=== PATIENT | female | born 1970 | race American Indian/Alaskan Native ===

== ENCOUNTER 2017-06-03 18:06 | Inpatient (IN) | payer BC ==
[2017-06-03] MEDS ORDERED: Sodium Chloride 0.9% 1,000 ML IV STA (19:05)
--- NOTE | 2017-06-03 19:28 | ED PDOC ---
Arrival/HPI - General Chief Complaint: Abdominal Pain Time Seen by Provider: 06/03/17 18:39 Historian: Patient - History of Present Illness Narrative History of Present Illness (Text): 06/03/17 19:26 47-year-old morbidly obese female presents today with left sided abdominal pain. Patient states for the past couple of weeks she's had worsening sharp stabbing pains in the left side of the abdomen. Patient states the pain starts epigastric and radiates to the left upper quadrant and into the left lower quadrant and suprapubic region. She is complaining of nausea with vomiting. She is complaining of intermittent chest pain. Denies dizziness or weakness. States she's been taking Motrin for pain at home without improvement. Patient denies urinary symptoms. Denies diarrhea or constipation. No other complaints Time/Duration: > week (2) Symptom Onset: Gradual Symptom Course: Worsening Quality: Aching, Stabbing, Cramping Severity Level: 6 Past Medical History - Provider Review Nursing Documentation Reviewed: Yes - Travel History Have you recently traveled outside [place] w/in the past 3 mons?: No - Tetanus Immunization Tetanus Immunization: Unknown - Cardiac Hx Cardiac Disorders: No - Pulmonary Hx Respiratory Disorders: No - Neurological Hx Neurological Disorder: No - HEENT Hx HEENT Disorder: No - Renal Hx Renal Disorder: No - Endocrine/Metabolic Hx Endocrine Disorders: No - Hematological/Oncological Hx Blood Disorders: No - Integumentary Hx Dermatological Disorder: No - Musculoskeletal/Rheumatological Hx Musculoskeletal Disorders: Yes Other/Comment: scica left side - Gastrointestinal Hx Gastrointestinal Disorders: No - Genitourinary/Gynecological Hx Genitourinary Disorders: No - Psychiatric Hx Psychophysiologic Disorder: No Hx Substance Use: No Family/Social History - Physician Review Nursing Documentation Reviewed: Yes Family/Social History: Unknown Family HX Smoking Status: Never Smoked Hx Alcohol Use: Yes Frequency of alcohol use: Socially Hx Substance Use: No Allergies/Home Meds Allergies/Adverse Reactions: Allergies No Known Allergies Allergy (Verified 06/03/17 18:28) Home Medications: Home Meds Medication Instructions Recorded Confirmed No Known Home Med 06/03/17 06/03/17 Review of Systems - Review of Systems Constitutional: absent: Fatigue, Fevers Respiratory: absent: SOB, Cough Cardiovascular: Chest Pain. absent: Palpitations Gastrointestinal: Abdominal Pain, Nausea, Vomiting. absent: Constipation, Diarrhea Genitourinary Female: absent: Dysuria, Frequency, Urine Output Changes Musculoskeletal: Back Pain. absent: Arthralgias, Neck Pain Skin: absent: Rash, Pruritis Neurological: absent: Headache, Dizziness Psychiatric: absent: Anxiety, Depression, Suicidal Ideation Physical Exam Vital Signs Reviewed: Yes Vital Signs Temp Pulse Resp BP Pulse Ox 06/03/17 23:48 74 16 126/76 99 06/03/17 23:47 98.1 F 71 18 126/76 100 06/03/17 22:03 98.0 F 74 18 146/70 99 06/03/17 18:17 98.3 F 89 18 143/87 98 Temperature: Afebrile Blood Pressure: Normal Pulse: Regular Respiratory Rate: Normal Appearance: Positive for: Well-Appearing, Non-Toxic, Comfortable Pain Distress: None Mental Status: Positive for: Alert and Oriented X 3 - Systems Exam Head: Present: Atraumatic Mouth: Present: Moist Mucous Membranes Neck: Present: Normal Range of Motion Respiratory/Chest: Present: Clear to Auscultation, Good Air Exchange. No: Respiratory Distress, Accessory Muscle Use Cardiovascular: Present: Regular Rate and Rhythm, Normal S1, S2. No: Murmurs Abdomen: Present: Tenderness (+ epigastric, luq and llq abd tenderness), Normal Bowel Sounds, Guarding (voluntary). No: Distention, Peritoneal Signs, McBurney' s Point Tender Back: Present: Normal Inspection. No: CVA Tenderness, Midline Tenderness, Paraspinal Tenderness Upper Extremity: Present: Normal Inspection Lower Extremity: Present: Normal Inspection Neurological: Present: GCS=15, Speech Normal Skin: Present: Warm, Dry, Normal Color. No: Rashes Psychiatric: Present: Alert, Oriented x 3 Medical Decision Making ED Course and Treatment: 06/03/17 19:29 Patient is nontoxic well appearing with stable vital signs presenting with [ severe] abdominal pain CBC WNL CMP WNL Lipase WNL trop: wnl ekg;NORMAL SINUS RHYTHM AT 73 B/P NORMAL AXIS AND NO st ELEVATIONS Urinalysis; CAT scan:FINDINGS: Lower thorax: No acute findings. ABDOMEN: Liver: There are some vague ill-defined low-attenuation areas in the anterolateral liver and the posterior right hepatic lobe measuring approximately 9 x 14 mm and 22 x 22 mm respectively. Gallbladder and bile ducts: Unremarkable. No calcified stones. No ductal dilation. Pancreas: Unremarkable. No mass. No ductal dilation. Spleen: Unremarkable. No splenomegaly. Adrenals: Unremarkable. No mass. Kidneys and ureters: Unremarkable. No solid mass. No hydronephrosis. Stomach and bowel: Colonic diverticulosis. There is pericolonic induration in the descending colon with prominent pericolonic induration extending medially and is confluent with some adjacent small bowel segments. The area of confluence measures approximately 2.1 cm. There are some small foci of gas within the induration in a 1 cm area which likely reflect a small area of contained perforation and early pericolonic abscess. There is surrounding stranding in a stellate configuration into the surrounding mesenteric fat. Although the gas collections are more adjacent to the small bowel, these probably originate from the colon. The small bowel is probably secondarily involved. Colonic wall thickening persists and the proximal sigmoid. No obstruction. Appendix: A normal appendix is seen. PELVIS: Bladder: The urinary bladder is decompressed but appears grossly normal. Reproductive: The uterus is enlarged measuring 8.2 cm in its AP dimension and is inhomogeneous with suggestion of a large fibroid anteriorly and to the left measuring approximately 6.7 cm. ABDOMEN and PELVIS: Intraperitoneal space: Unremarkable. No free air. No significant fluid collection. Bones/joints: No acute fracture. No dislocation. Soft tissues: Unremarkable. Vasculature: Unremarkable. No abdominal aortic aneurysm. Lymph nodes: Unremarkable. No enlarged lymph nodes. IMPRESSION: 1. Colonic diverticulosis with evidence of colonic diverticulitis involving the distal descending colon and proximal sigmoid. There is a prominent focal inflammatory confluence extending medially from the distal descending colon with small foci of gas within consistent with a small area of contained perforation or early abscess which is noted to be adjacent to at least one small bowel segment. The area of confluence measures approximately 2.1 cm in diameter although the air is localized to an area approximately 1 cm in diameter. 2. Vague ill-defined low-attenuation areas of the liver which are nonspecific and measure up to 2.2 cm. 3. Enlarged uterus with probable large fibroid anterolaterally to the left. Patient reassessment: PATIENT RESTING COMFORTABLY VITAL STABLE Case was discussed in depth with rn surgical dr. melgar who saw patient at [facility]. case discussed with dr. long; accepts admission. consult dr. brandt. paged dr. brandt; he did not return my call. spoke with rn surgical who states she spoke with dr. brandt regarding this case. blood cultures and urinecultures ordered. zosyn and flagyl ordered IV. Discussed all results with patient in depth Impression: diverticulitis with perforation, abscess, admit to med/surg. surgical consult. - Lab Interpretations Lab Results: 06/03/17 19:45 06/03/17 19:45 Lab Results 06/03/17 19:45: WBC 8.4, RBC 4.37, Hgb 13.4, Hct 39.2, MCV 89.7, MCH 30.7, MCHC 34.2, RDW 11.8, Plt Count 327, MPV 10.5, Gran % 67.2, Lymph % (Auto) 22.2, [place] % (Auto) 9.3 H, Eos % (Auto) 1.1 L, Baso % (Auto) 0.2, Gran # 5.61, Lymph # 1.9 , [place] # 0.8 H, Eos # 0.1, Baso # 0.02 06/03/17 19:45: Sodium 140, Potassium 4.4, Chloride 101, Carbon Dioxide 28, Anion Gap 15, BUN 8, Creatinine 0.7, Est GFR ( Amer) > 60, Est GFR (Non- Af Amer) > 60, Random Glucose 112 H, Calcium 9.4, Total Bilirubin 0.5, AST 29, ALT 30, Alkaline Phosphatase 89, Lactate Dehydrogenase 546, Total Creatine Kinase 40, Troponin I < 0.01, Total Protein 7.8, Albumin 4.0, Globulin 3.8, Albumin/Globulin Ratio 1.1, Lipase 87 06/03/17 19:45: Urine Color Yellow, Urine Appearance Clear, Urine pH 5.5, Ur Specific [place] >= 1.030, Urine Protein Trace H, Urine Glucose (UA) Negative, Urine Ketones Trace H, Urine Blood Negative, Urine Nitrate Negative, Urine Bilirubin Negative, Urine Urobilinogen 0.2, Ur Leukocyte Esterase Trace H, Urine RBC 0 - 2, Urine WBC 2 - 5, Ur Epithelial Cells 6 - 8, Urine Bacteria Few - RAD Interpretation Radiology Orders: 06/03/17 19:12 ABD & PELVIS IV CONTRAST ONLY [CT] Stat 06/03/17 19:27 CHEST PORTABLE [RAD] Stat - Medication Orders Current Medication Orders: Acetaminophen (Tylenol 325mg Tab) 650 mg PO Q6H PRN PRN Reason: Pain, Mild (1-3) Sodium Chloride (Sodium Chloride 0.9%) 1,000 mls @ 150 mls/hr IV .Q6H40M JEANCARLOS Last Admin: 06/03/17 23:24 Dose: 150 mls/hr Metronidazole (Flagyl) 500 mg in 100 mls @ 100 mls/hr IVPB Q8 JEANCARLOS PRN Reason: Protocol Ciprofloxacin (Cipro 400mg/200ml Dsw) 400 mg in 200 mls @ 133.3 mls/hr IVPB Q12 JEANCARLOS PRN Reason: Protocol Stop: 06/04/17 23:31 Morphine Sulfate (Morphine) 4 mg IVP Q6H PRN PRN Reason: Pain, severe (8-10) Pantoprazole Sodium (Protonix Inj) 40 mg IVP DAILY JEANCARLOS Tramadol HCl (Ultram) 50 mg PO Q6H PRN PRN Reason: Pain, moderate (4-7) Discontinued Medications Sodium Chloride (Sodium Chloride 0.9%) 1,000 mls @ 999 mls/hr IV .Q1H1M STA Stop: 06/03/17 20:05 Last Admin: 06/03/17 19:32 Dose: 999 mls/hr Metronidazole (Flagyl) 500 mg in 100 mls @ 100 mls/hr IVPB STAT STA PRN Reason: Protocol Stop: 06/03/17 23:22 Last Admin: 06/04/17 00:33 Dose: 100 mls/hr Piperacillin Sod/Tazobactam Sod (Zosyn 3.375 In Ns 100ml) 100 mls @ 200 mls/hr IVPB STAT STA PRN Reason: Protocol Stop: 06/03/17 22:52 Last Admin: 06/03/17 23:24 Dose: 200 mls/hr Sodium Chloride (Sodium Chloride 0.9%) 1,000 mls @ 100 mls/hr IV .Q10H JEANCARLOS Ciprofloxacin (Cipro 400mg/200ml Dsw) 400 mg in 200 mls @ 133.3 mls/hr IVPB Q12 JEANCARLOS PRN Reason: Protocol Stop: 06/04/17 00:46 Iohexol (Omnipaque 300 100 Ml) Confirm Administered Dose 100 ml IJ .STK-MED ONE Stop: 06/03/17 20:14 Ketorolac Tromethamine (Toradol) 30 mg IVP STAT STA Stop: 06/03/17 19:13 Last Admin: 06/03/17 19:29 Dose: 30 mg Disposition/Present on Arrival - Present on Arrival Any Indicators Present on Arrival: No History of DVT/PE: No History of Uncontrolled Diabetes: No Urinary Catheter: No History of Decub. Ulcer: No History Surgical Site Infection Following: None - Disposition Have Diagnosis and Disposition been Completed?: Yes Diagnosis: Diverticulitis, Intra-abdominal abscess Disposition: HOSPITALIZED Disposition Time: 22:35 Patient Plan: Admission Patient Problems: Current Active Problems Problem Status Onset Diverticulitis Acute Intra-abdominal abscess Acute Condition: FAIR
[2017-06-03 20:03] LABS: BASO # 0.02 K/mm3 (0.0-2.0); BASO % 0.2 % (0.0-3.0); EOS # 0.1 (0.0-0.7); EOS % 1.1 % (1.5-5.0); GRAN # 5.61 (1.4-6.5); GRAN % 67.2 % (50.0-68.0); HEMATOCRIT 39.2 % (36.0-48.0); LYMPH # 1.9 (1.2-3.4); LYMPH % 22.2 % (22.0-35.0); MEAN CELL VOLUME 89.7 fl (80.0-105.0); MEAN CORPUSCULAR HEMOGLOBIN 30.7 pg (25.0-35.0); MEAN CORPUSCULAR HGB CONC 34.2 g/dl (31.0-37.0); MEAN PLATELET VOLUME 10.5 fl (7.0-11.0); MONO # 0.8 (0.1-0.6); MONO % 9.3 % (1.0-6.0); RED CELL DISTRIBUTION WIDTH 11.8 % (11.5-14.5); WHITE BLOOD COUNT 8.4 10^3/ul (4.5-11.0)
[2017-06-03 20:04] LABS: PH,URINE 5.5 (4.7-8.0); URINE BILIRUBIN NEGATIVE (NEGATIVE); URINE BLOOD NEGATIVE (NEGATIVE); URINE GLUCOSE (UA) NEGATIVE (NEGATIVE); URINE KETONE TRACE mg/dL (NEGATIVE); URINE LEUKOCYTE ESTERASE TRACE Leu/uL (NEGATIVE); URINE PROTEIN TRACE mg/dL (<30 mg/dL); URINE UROBILINOGEN 0.2 E.U./dL (<1 E.U./dL)
[2017-06-03 20:07] LABS: ALB/GLOB RATIO 1.1 (1.1-1.8); ALKALINE PHOSPHATASE 89 U/L (38-133); ALT/SGPT 30 U/L (7-56); AST/SGOT 29 U/L (15-39); BILIRUBIN,TOTAL 0.5 mg/dL (0.2-1.3); BLOOD UREA NITROGEN 8 mg/dL (7-21); CALCIUM 9.4 mg/dL (8.4-10.5); CARBON DIOXIDE 28 mmol/L (21-33); CHLORIDE 101 mmol/L (98-107); GFR AFRICAN-AMERICAN > 60; GLUCOSE,RANDOM 112 mg/dL (70-110); LIPASE 87 U/L (23-300); POTASSIUM 4.4 mmol/L (3.6-5.0); SODIUM 140 mmol/L (132-148); TOTAL PROTEIN 7.8 g/dL (5.8-8.3); URINE APPEARANCE CLEAR (CLEAR); URINE COLOR YELLOW (YELLOW)
[2017-06-03] MEDS ORDERED: Iohexol 300 100 ML IJ ONE (20:13)
[2017-06-03 20:17] LABS: URINE BACTERIA FEW (NEG); URINE RBC 0 - 2 /hpf (0-2)
[2017-06-03 20:19] LABS: TROPONIN I < 0.01 ng/mL
[2017-06-03] MEDS ORDERED: metroNIDAZOLE IV 500 mg/100 ml 500 MG/100 ML BAG IVPB STA (22:23)
[2017-06-03] MEDS ORDERED: Piperacillin/Tazobact 3.375 gm 100 ML IVPB STA (22:23)
[2017-06-03] MEDS ORDERED: Sodium Chloride 0.9% 1,000 ML IV SCH (22:30)
--- NOTE | 2017-06-03 23:07 | CP.PCM.CON ---
History of Present Illness - History of Present Illness History of Present Illness: General surgery consult note for Dr. Kamaljit Luciano, PGY-1 Pt S & E at bedside. 47F w/PMH sig for morbid obesity consulted for Left sided abdominal pain x 1 month. Pt reports sudden onset of Left upper and lower quadrant abdominal pain 1 mo ago. Pain is constant, intensity is variable. Pt reports taking Tylenol and Aleve w/o relief. [place] [facility] [place]- Ab xray w/o sig findings, sent home after ED visit. Pain persisted, pt presented [place] [facility] [place] without further work up. Pain continued and intensity increased. Pain aggravated by PO intake. Admits to N, emesis x 2 (3 wks ago, non bloody, bilious), diaphoresis x 1, dark stool (3 days ago), flatus, constipation (has daily BMs, had a few days where she did not have a BM). Denies F/C, SOB, CP, changes in bladder habits, hematochezia, hematuria, weakness, fatigue, other complaints. PMH: Morbid obesity PSH: Denies All: Denies SH: Admits to 4-5 drinks ETOH/mo, denies tobacco or illicit drug use PMD: None Pharmacy: [facility] Review of Systems - Review of Systems All systems: reviewed and no additional remarkable complaints except - Constitutional Constitutional: Headache (occasional). absent: Chills, Fever, Weakness - EENT Eyes: absent: Change in Vision Ears: absent: Dizziness Nose/Mouth/Throat: absent: Nasal Congestion, Sore Throat - Cardiovascular Cardiovascular: absent: Chest Pain, Leg Edema, Palpitations - Respiratory Respiratory: absent: Cough - Gastrointestinal Gastrointestinal: Abdominal Pain, Belching, Bloating, Change in Bowel Habits, Constipation, Melena, Nausea, Vomiting. absent: Hematemesis, Hematochezia - Genitourinary Genitourinary: absent: Change in Urinary Stream, Dysuria, Flank Pain, Hematuria - Reproductive: Female Reproductive:Female: Amenorrhea - Musculoskeletal Musculoskeletal: absent: Numbness, Tingling - Neurological Neurological: absent: Dizziness, Numbness, Tingling Past Patient History - Tetanus Immunizations Tetanus Immunization: Unknown - Past Social History Smoking Status: Never Smoked - CARDIAC Hx Cardiac Disorders: No - PULMONARY Hx Respiratory Disorders: No - NEUROLOGICAL Hx Neurological Disorder: No - HEENT Hx HEENT Problems: No - RENAL Hx Chronic Kidney Disease: No - ENDOCRINE/METABOLIC Hx Endocrine Disorders: No - HEMATOLOGICAL/ONCOLOGICAL Hx Blood Disorders: No - INTEGUMENTARY Hx Dermatological Problems: No - MUSCULOSKELETAL/RHEUMATOLOGICAL Hx Musculoskeletal Disorders: Yes Other/Comment: scica left side - GASTROINTESTINAL Hx Gastrointestinal Disorders: No - GENITOURINARY/GYNECOLOGICAL Hx Genitourinary Disorders: No - PSYCHIATRIC Hx Psychophysiologic Disorder: No Hx Substance Use: No - SURGICAL HISTORY Hx Surgeries: No Meds Allergies/Adverse Reactions: Allergies Allergy/AdvReac Type Severity Reaction Status Date / Time No Known Allergies Allergy Verified 06/03/17 18:28 - Medications Medications: Current Medications Acetaminophen (Tylenol 325mg Tab) 650 mg PO Q6H PRN PRN Reason: Pain, Mild (1-3) Metronidazole (Flagyl) 500 mg in 100 mls @ 100 mls/hr IVPB STAT STA PRN Reason: Protocol Stop: 06/03/17 23:22 Sodium Chloride (Sodium Chloride 0.9%) 1,000 mls @ 100 mls/hr IV .Q10H JEANCARLOS Physical Exam - Constitutional Appears: Non-toxic, No Acute Distress - Head Exam Head Exam: ATRAUMATIC, NORMAL INSPECTION, NORMOCEPHALIC - Eye Exam Eye Exam: EOMI, Normal appearance - ENT Exam ENT Exam: Mucous Membranes Moist, Normal Exam - Neck Exam Neck exam: Positive for: Full Rom, Normal Inspection - Respiratory Exam Respiratory Exam: Clear to Auscultation Bilateral, NORMAL BREATHING PATTERN - Cardiovascular Exam Cardiovascular Exam: REGULAR RHYTHM, +S1, +S2 - GI/Abdominal Exam GI & Abdominal Exam: Normal Bowel Sounds, Soft, Tenderness (LUQ, suprapubic, epigastric areas). absent: Distended (obese), Firm, Guarding, Rebound, Rigid - Rectal Exam Rectal Exam: NORMAL INSPECTION. absent: Bloody Stool - Extremities Exam Extremities exam: Positive for: normal inspection. Negative for: pedal edema, tenderness - Back Exam Back exam: NORMAL INSPECTION. absent: CVA tenderness (L), CVA tenderness (R) - Neurological Exam Neurological exam: Alert, CN II-XII Intact, Oriented x3 - Psychiatric Exam Psychiatric exam: Normal Affect, Normal Mood - Skin Skin Exam: Dry, Intact, Normal Color, Warm Results - Vital Signs Recent Vital Signs: Last Vital Signs Temp 98.0 F 06/03/17 22:03 Pulse 74 06/03/17 22:03 Resp 18 06/03/17 22:03 BP 146/70 06/03/17 22:03 Pulse Ox 99 06/03/17 22:03 - Labs Result Diagrams: 06/03/17 19:45 06/03/17 19:45 Assessment & Plan - Assessment and Plan (Free Text) Assessment: 47F w/diveriticulitis w/small perforation vs. early abscess, currently afebrile , no leukocytosis Plan: Clear liquid diet Pain mgmt Cipro Flagyl IVF FU FOB FU AM labs Monitor for fevers Will NANCY attending Ankita, PGY-1 - Date & Time Date: 06/03/17 Time: 23:06
[2017-06-03] MEDS ORDERED: Morphine 4 mg/ml ISec IVP PRN (23:08)
[2017-06-03] MEDS ORDERED: Ciprofloxacin 400mg/200ml D5W 400 MG/200 ML BAG IVPB SCH (23:15)
[2017-06-03] MEDS: Sodium Chloride 0.9% 1,000 ML IV SCH (23:24)
[2017-06-04] MEDS: metroNIDAZOLE IV 500 mg/100 ml 500 MG/100 ML BAG IVPB SCH ×3 (06:33→21:07)
--- NOTE | 2017-06-04 09:30 | RAD ---
HISTORY: Abdominal pain COMPARISON: No prior. FINDINGS: LUNGS: Minor bibasilar atelectasis PLEURA: No significant pleural effusion identified, no pneumothorax apparent. CARDIOVASCULAR: Normal. OSSEOUS STRUCTURES: No significant abnormalities. VISUALIZED UPPER ABDOMEN: Normal. OTHER FINDINGS: None. IMPRESSION: Minor bibasilar atelectasis
[2017-06-04] MEDS ORDERED: Ciprofloxacin 400mg/200ml D5W 400 MG/200 ML BAG IVPB SCH (10:00)
[2017-06-04 10:33] LABS: BASO # 0.01 K/mm3 (0.0-2.0); BASO % 0.2 % (0.0-3.0); EOS # 0.1 (0.0-0.7); GRAN # 4.11 (1.4-6.5); GRAN % 67.3 % (50.0-68.0); HEMATOCRIT 36.3 % (36.0-48.0); LYMPH # 1.4 (1.2-3.4); LYMPH % 22.8 % (22.0-35.0); MEAN CELL VOLUME 89.4 fl (80.0-105.0); MEAN CORPUSCULAR HGB CONC 33.6 g/dl (31.0-37.0); MEAN PLATELET VOLUME 10.2 fl (7.0-11.0); MONO # 0.5 (0.1-0.6); MONO % 8.7 % (1.0-6.0); RED CELL DISTRIBUTION WIDTH 11.8 % (11.5-14.5); WHITE BLOOD COUNT 6.1 10^3/ul (4.5-11.0)
[2017-06-04 10:48] LABS: ALKALINE PHOSPHATASE 81 U/L (38-133); ALT/SGPT 34 U/L (7-56); AST/SGOT 27 U/L (15-39); BILIRUBIN,TOTAL 0.6 mg/dL (0.2-1.3); BLOOD UREA NITROGEN 6 mg/dL (7-21); CALCIUM 9.1 mg/dL (8.4-10.5); CARBON DIOXIDE 25 mmol/L (21-33); CHLORIDE 104 mmol/L (98-107); GFR AFRICAN-AMERICAN > 60; GLUCOSE,RANDOM 109 mg/dL (70-110); POTASSIUM 3.7 mmol/L (3.6-5.0); SODIUM 140 mmol/L (132-148); TOTAL PROTEIN 7.1 g/dL (5.8-8.3)
--- NOTE | 2017-06-04 16:44 | CT ---
PROCEDURE: CT abdomen pelvis dated 06/03/2017. HISTORY: And left-sided abdominal pain COMPARISON: None. TECHNIQUE: Contiguous axial images of the abdomen and pelvis performed following intravenous injection of approximately 100 cc of Omnipaque 300 contrast material. Additional 2 dimensional sagittal and coronal n. Coronal and Sagittal reformats generated. Radiation dose: Total exam DLP = the 1074.17 mGy-cm. This CT exam was performed using one or more of the following dose reduction techniques: Automated exposure control, adjustment of the mA and/or kV according to patient size, and/or use of iterative reconstruction technique. FINDINGS: LOWER THORAX: Unremarkable. Lung bases clear. No infiltrate effusion or basilar pneumothorax. Tiny hiatal hernia. Heart size within range of normal. No significant pericardial effusion. LIVER: Liver exhibits normal size and attenuation pattern. No. There is a ill-defined vague area of low attenuation posterior inferior right lobe liver that measures approximately 2.25 x 2.0 x 2.0 cm which is of uncertain etiology. This could represent a small hemangioma. There is a 2nd elliptical shaped area low attenuation anterior aspect left lobe liver which measures approximately 1.5 x .7.8 cm that may also represent small hemangioma. Follow-up CT scan at interval could be performed to assess stability and exclude other pathology. . . Portal and splenic veins are opacified. No significant intrahepatic biliary ductal dilatation. GALLBLADDER AND BILE DUCTS: Gallbladder appears incompletely distended which may account for slight prominent gallbladder wall. No definitive intraluminal calculi PANCREAS: Unremarkable. No mass. No ductal dilatation. SPLEEN: Unremarkable. No splenomegaly. ADRENALS: Unremarkable. KIDNEYS AND URETERS: Kidneys demonstrate symmetric nephrograms. No evidence of nephrolithiasis or hydronephrosis. BLADDER: Urinary bladder is incompletely distended which may account for slight thick-walled appearance. Possibility of a cystitis not excluded. Clinical correlation with urinalysis recommended. REPRODUCTIVE: Enlarged lobulated heterogeneous uterus consistent with uterine fibroids. Recommend followup pelvic ultrasound for further evaluation. APPENDIX: Normal-appearing appendix best seen on axial image number [id number]. No periappendiceal inflammatory changes. BOWEL: Evaluation of the bowel is limited due to the lack of oral contrast material. Stomach is incompletely distended which presumably accounts for mild thick-walled appearance. Visualized loops of small bowel exhibit normal contour and caliber. No evidence of acute mechanical small bowel obstruction. There are multiple colonic diverticula including diverticulum along the right colon. There is a localized area of wall thickening involving a medium-sized segment of the descending colon with surrounding infiltration and fluid consistent with acute diverticulitis. The there is a vaguely localized area of what could represent phlegmon and or early abscess medial to the inflamed segment of colon which contains bubbles of air suggesting micro perforation. The. This measures approximately 2.3 x 2.2 cm. PERITONEUM: As above. LYMPH NODES: Suspect few small nonspecific retroperitoneal lymph nodes. VASCULATURE: No evidence of abdominal aortic aneurysm BONES: No fracture or destructive lesion. OTHER FINDINGS: Mild degenerative spondylosis of the lower thoracic and to a lesser degree lumbar spine. IMPRESSION: Diverticulitis involving a IE medium segment of the descending colon with what appears represent a small adjacent phlegmon and or abscess containing bubbles of air consistent with micro perforation. Surrounding infiltration and fluid. Two low-attenuation foci seen right lobe and left lobe liver of uncertain etiology. Rule out hemangiomas. Other pathology not excluded. Follow-up CT scan at interval recommended to assess stability. Uterine fibroids. Urinary bladder is incompletely distended which presumably accounts for thick-walled appearance. Possibility of cystitis not excluded. Note that this report was placed in PA review folder for followup.
[2017-06-04] MEDS: Sodium Chloride 0.9% 1,000 ML IV SCH ×2 (17:38→20:00)
--- NOTE | 2017-06-04 20:47 | CP.PCM.CON ---
History of Present Illness - History of Present Illness History of Present Illness: Infectious Disease Consultation: June 04, 2017 47 yo AA female with abdominal pain for 1 month in the left upper and lower quadrant. CT scan showing diverticulitis of the descending colon with possible phlegmon or abscess. On antibiotics and being monitored. Multiple medical issues including morbid obesity. PMHx: Morbid Obesity PSHx: none Allergies: NKDA Social Hx: Social EtOH 4-5 drinks/mo NO tobacco No illicit drugs Active Medications Acetaminophen (Tylenol 325mg Tab) 650 mg PO Q6H PRN PRN Reason: Pain, Mild (1-3) Sodium Chloride (Sodium Chloride 0.9%) 1,000 mls @ 150 mls/hr IV .Q6H40M [facility] Last Admin: 06/04/17 17:38 Dose: 150 mls/hr Metronidazole (Flagyl) 500 mg in 100 mls @ 100 mls/hr IVPB Q8 [facility] PRN Reason: Protocol Last Admin: 06/04/17 17:38 Dose: 100 mls/hr Ciprofloxacin (Cipro 400mg/200ml Dsw) 400 mg in 200 mls @ 133.3 mls/hr IVPB Q12 [facility] PRN Reason: Protocol Stop: 06/04/17 23:31 Last Admin: 06/04/17 09:02 Dose: 133.3 mls/hr Morphine Sulfate (Morphine) 4 mg IVP Q6H PRN PRN Reason: Pain, severe (8-10) Ondansetron HCl (Zofran Inj) 4 mg IVP Q6H PRN PRN Reason: Nausea/Vomiting Last Admin: 06/04/17 18:21 Dose: 4 mg Pantoprazole Sodium (Protonix Inj) 40 mg IVP DAILY [facility] Last Admin: 06/04/17 09:07 Dose: 40 mg Tramadol HCl (Ultram) 50 mg PO Q6H PRN PRN Reason: Pain, moderate (4-7) Family Hx: none given ROS: no fevers, chills, nausea, vomiting, diarrhea, headaches, dizziness, chest pain , melena, hematuria, hematemesis, hematochezia, depression, anxiety. Patient with abdominal pain. Past Patient History - Tetanus Immunizations Tetanus Immunization: Unknown - Past Social History Smoking Status: Never Smoked - CARDIAC Hx Cardiac Disorders: No - PULMONARY Hx Respiratory Disorders: No - NEUROLOGICAL Hx Neurological Disorder: No - HEENT Hx HEENT Problems: No - RENAL Hx Chronic Kidney Disease: No - ENDOCRINE/METABOLIC Hx Endocrine Disorders: No - HEMATOLOGICAL/ONCOLOGICAL Hx Blood Disorders: No - INTEGUMENTARY Hx Dermatological Problems: No - MUSCULOSKELETAL/RHEUMATOLOGICAL Hx Musculoskeletal Disorders: Yes Other/Comment: scica left side - GASTROINTESTINAL Hx Gastrointestinal Disorders: No - GENITOURINARY/GYNECOLOGICAL Hx Genitourinary Disorders: No - PSYCHIATRIC Hx Psychophysiologic Disorder: No Hx Substance Use: No - SURGICAL HISTORY Hx Surgeries: No Meds Allergies/Adverse Reactions: Allergies Allergy/AdvReac Type Severity Reaction Status Date / Time No Known Allergies Allergy Verified 06/03/17 18:28 - Medications Medications: Current Medications Acetaminophen (Tylenol 325mg Tab) 650 mg PO Q6H PRN PRN Reason: Pain, Mild (1-3) Sodium Chloride (Sodium Chloride 0.9%) 1,000 mls @ 150 mls/hr IV .Q6H40M [facility] Last Admin: 06/04/17 17:38 Dose: 150 mls/hr Metronidazole (Flagyl) 500 mg in 100 mls @ 100 mls/hr IVPB Q8 [facility] PRN Reason: Protocol Last Admin: 06/04/17 17:38 Dose: 100 mls/hr Ciprofloxacin (Cipro 400mg/200ml Dsw) 400 mg in 200 mls @ 133.3 mls/hr IVPB Q12 [facility] PRN Reason: Protocol Stop: 06/04/17 23:31 Last Admin: 06/04/17 09:02 Dose: 133.3 mls/hr Morphine Sulfate (Morphine) 4 mg IVP Q6H PRN PRN Reason: Pain, severe (8-10) Ondansetron HCl (Zofran Inj) 4 mg IVP Q6H PRN PRN Reason: Nausea/Vomiting Last Admin: 06/04/17 18:21 Dose: 4 mg Pantoprazole Sodium (Protonix Inj) 40 mg IVP DAILY [facility] Last Admin: 06/04/17 09:07 Dose: 40 mg Tramadol HCl (Ultram) 50 mg PO Q6H PRN PRN Reason: Pain, moderate (4-7) Physical Exam - Constitutional Appears: Non-toxic, No Acute Distress - Head Exam Head Exam: ATRAUMATIC, NORMOCEPHALIC - Eye Exam Eye Exam: EOMI, PERRL Pupil Exam: NORMAL ACCOMODATION, PERRL - ENT Exam ENT Exam: Mucous Membranes Moist, Normal External Ear Exam, TM's Normal Bilaterally - Neck Exam Neck exam: Positive for: Full Rom, Normal Inspection - Respiratory Exam Respiratory Exam: Clear to Auscultation Bilateral, NORMAL BREATHING PATTERN. absent: Rales, Rhonchi, Wheezes - Cardiovascular Exam Cardiovascular Exam: REGULAR RHYTHM, RRR, +S1, +S2 - GI/Abdominal Exam GI & Abdominal Exam: Normal Bowel Sounds, Soft, Tenderness. absent: Distended - Extremities Exam Extremities exam: Positive for: full ROM, normal inspection - Neurological Exam Neurological exam: Alert, CN II-XII Intact, Oriented x3 - Psychiatric Exam Psychiatric exam: Normal Affect, Normal Mood - Skin Skin Exam: Intact, Normal Color Results - Vital Signs Recent Vital Signs: Last Vital Signs Temp 98.1 F 06/04/17 08:36 Pulse 73 06/04/17 08:36 Resp 20 06/04/17 08:36 BP 111/53 L 06/04/17 08:36 Pulse Ox 98 06/04/17 08:36 - Labs Result Diagrams: 06/04/17 10:20 06/04/17 10:20 Labs: Laboratory Results - last 24 hr 06/04/17 06/04/17 06/04/17 00:34 10:20 10:20 WBC 6.1 D RBC 4.06 Hgb 12.2 Hct 36.3 MCV 89.4 MCH 30.0 MCHC 33.6 RDW 11.8 Plt Count 309 MPV 10.2 Gran % 67.3 Lymph % (Auto) 22.8 Bullock % (Auto) 8.7 H Eos % (Auto) 1.0 L Baso % (Auto) 0.2 Gran # 4.11 Lymph # 1.4 Bullock # 0.5 Eos # 0.1 Baso # 0.01 Sodium 140 Potassium 3.7 Chloride 104 Carbon Dioxide 25 Anion Gap 15 BUN 6 L Creatinine 0.7 Est GFR ( Amer) > 60 Est GFR (Non-Af Amer) > 60 Random Glucose 109 Calcium 9.1 Total Bilirubin 0.6 AST 27 ALT 34 Alkaline Phosphatase 81 Total Protein 7.1 Albumin 3.6 Globulin 3.5 Albumin/Globulin Ratio 1.0 L Stool Occult Blood Negative Assessment & Plan - Assessment and Plan (Free Text) Assessment: 47 yo AA female with diverticulitis with signs of small perforation on CT scan with potential early abscess. No leukocytosis and no fevers. The patient was startede on Cipro and Flagyl for antibiotic coverage which is reasonable. On IV fluids and a clear diet currently. Monitor overnight. Thank you for allowing me to participate in the care of the patient, we will follow with you.
[2017-06-04] MEDS: Ciprofloxacin 400mg/200ml D5W 400 MG/200 ML BAG IVPB SCH (22:15)
--- NOTE | 2017-06-05 01:34 | CARD ---
APPROVED REPORT EKG Measurement Heart [id number] <Conclusion> Normal sinus rhythm Minimal voltage criteria for LVH, may be normal variant Inferior infarct, age undetermined Abnormal ECG
[2017-06-05] MEDS: Sodium Chloride 0.9% 1,000 ML IV SCH ×4 (02:00→23:41)
--- NOTE | 2017-06-05 03:23 | HP ---
HISTORY OF PRESENT ILLNESS: This 47-year-old female was examined at her bedside. Her case was reviewed in detail with herself, co-consultants, and nursing. She is a morbidly obese female who presented to [facility] late last evening with left-sided abdominal pain and found to have diverticulitis with a possible perforation versus abscess on abdominal pelvic CT. The patient had presented to [facility] Emergency Room twice in the past week with complaints of abdominal discomfort, epigastric as well as left upper and lower quadrant in nature for which she was evaluated with blood work and abdominal x-rays and discharged. When she presented to [facility] ER, a CAT scan was performed which revealed the above findings. The patient denied any fever, chills, shortness of breath, and this morning had one episode of melena. PAST MEDICAL HISTORY: The patient denies any past medical history. States she is status post childbirth x3. PAST SURGICAL HISTORY: Denies any surgical history including appendectomy, cholecystectomy, or tonsillectomy and is on no chronic medication at present. SOCIAL HISTORY: She states is a nonsmoker, non IV drug misuser. Social drinker. ALLERGIES: SHE DENIES ANY ALLERGIES TO MEDICATIONS. FAMILY HISTORY: Significant for mother dying in her mid 80s of bone cancer and a father who of an accidental injury. REVIEW OF SYSTEMS: HEAD: Reviewed, denied headache or seizure. EYE: Reviewed, denied change in visual acuity. EAR: Reviewed, denied hearing loss. THROAT: Reviewed, denied swallowing difficulty. NECK: Reviewed, denied any stiffness. CARDIAC: Reviewed, denied any knowledge of chest pain or hypertension. PULMONARY: Denied cough or hemoptysis. GI: As per HPI. : Denies dysuria. SKIN: Denies rash. VASCULAR: Denies claudication. PSYCHOLOGICAL: Denies anxiety or depression. NEUROLOGICAL: Denies any knowledge of TIA or stroke. PHYSICAL EXAMINATION: VITAL SIGNS: Showed a temperature of 98.1, route jumper showed normal sinus rhythm, respirations 20, pulse 73, and blood pressure 111/53 with a pulse ox of 98% on room air. HEENT: Head was normocephalic and atraumatic. Eyes, no icterus. Ears clear. Throat non-injected. NECK: Supple. HEART: Regular, S1, S2. No pathological rubs, murmurs, or gallops. LUNGS: Clear to auscultation. ABDOMEN: Obese, nontender without palpable organomegaly. No rebound. No guarding. No tenderness. EXTREMITIES: Showed no clubbing, no cyanosis, no edema. SKIN: Showed no rash. VASCULAR: Legs are warm to touch. PSYCHOLOGICAL: Alert and oriented x3. NEUROLOGICAL: Grossly intact. LABORATORY DATA: White count 6100, hemoglobin 12.2, hematocrit 36.3, and platelets 309,000. Sodium 140, potassium 3.7, chloride 104, bicarbonate 25, BUN 6, creatinine 0.7, and random blood sugar was 109. All liver function testing was normal including bilirubin 0.6, AST 27, ALT 34, and alkaline phosphatase 81. Lipase was normal at 87. Urinalysis showed few bacteria. Stool for occult blood was negative. Abdominal pelvic CT reportedly showed left descending colon diverticulitis with a possible pericolonic abscess. Chest x-ray showed minor bibasilar atelectasis, no significant abnormalities, and EKG reportedly showed normal sinus rhythm. IMPRESSION: This is a 47-year-old female with morbid obesity, admitted with recurrent abdominal pain and CAT scan findings of diverticulitis and a possible pericolonic abscess, this morning with what she felt was melena, possibly secondary to the above GI problems, including diverticulitis. PLAN: The plan at present is to consult with surgery Dr. Calvillo, GI Dr. Jimenez, and infectious disease Dr. Clif Curiel. The patient at present is receiving Protonix 40 mg IV daily, 0.9 saline at 150 mL per hour, Cipro 400 mg IV q.12 h., Flagyl 500 mg IV q.8 h. Pending ID evaluation. She was started on clear liquid diet by Surgery, is wearing antiembolism stockings, has been instructed to ambulate with assistance, and is awaiting results of blood and urine cultures. She is scheduled for repeat comprehensive metabolic panel with CBC in the a.m. An additional workup will be entertained based on clinical progress and salon sales consultant evaluations and recommendations. All of the above was discussed in detail with the patient, co-consultants, and nursing. All questions were answered, and greater than fifty minutes was spent in the care and management of this patient today. She will remain on the cardiac unit. Karol Darren, MD MTDD
[2017-06-05] MEDS: metroNIDAZOLE IV 500 mg/100 ml 500 MG/100 ML BAG IVPB SCH ×3 (05:31→21:07)
[2017-06-05 07:49] LABS: BASO # 0.01 K/mm3 (0.0-2.0); BASO % 0.2 % (0.0-3.0); EOS # 0.1 (0.0-0.7); GRAN # 3.95 (1.4-6.5); GRAN % 64.8 % (50.0-68.0); HEMATOCRIT 34.5 % (36.0-48.0); LYMPH # 1.3 (1.2-3.4); LYMPH % 21.8 % (22.0-35.0); MEAN CELL VOLUME 89.1 fl (80.0-105.0); MEAN CORPUSCULAR HEMOGLOBIN 29.2 pg (25.0-35.0); MEAN CORPUSCULAR HGB CONC 32.8 g/dl (31.0-37.0); MEAN PLATELET VOLUME 10.6 fl (7.0-11.0); MONO # 0.7 (0.1-0.6); MONO % 11.2 % (1.0-6.0); RED CELL DISTRIBUTION WIDTH 11.9 % (11.5-14.5); WHITE BLOOD COUNT 6.1 10^3/ul (4.5-11.0)
--- NOTE | 2017-06-05 09:03 | CP.PCM.PN ---
Subjective - Date & Time of Evaluation Date of Evaluation: 06/05/17 Time of Evaluation: 09:00 - Subjective Subjective: General Surgery Dr. Calvillo Pt S&E @bedside. NAEO. reports nausea w/ CLD. denies vomiting. pain controlled w / medication. denies F/C. Objective - Vital Signs/Intake and Output Vital Signs (last 24 hours): Temp Pulse Resp BP Pulse Ox 98.5 F 85 20 131/69 97 06/05/17 07:21 06/05/17 07:21 06/05/17 07:21 06/05/17 07:21 06/05/17 07:21 Intake and Output: 06/05/17 06/05/17 06:59 18:59 Intake Total 2400 Balance 2400 - Medications Medications: Current Medications Acetaminophen (Tylenol 325mg Tab) 650 mg PO Q6H PRN PRN Reason: Pain, Mild (1-3) Sodium Chloride (Sodium Chloride 0.9%) 1,000 mls @ 150 mls/hr IV .Q6H40M [facility] Last Admin: 06/05/17 02:00 Dose: 150 mls/hr Metronidazole (Flagyl) 500 mg in 100 mls @ 100 mls/hr IVPB Q8 [facility] PRN Reason: Protocol Last Admin: 06/05/17 05:31 Dose: 100 mls/hr Ciprofloxacin (Cipro 400mg/200ml Dsw) 400 mg in 200 mls @ 133.3 mls/hr IVPB Q12 [facility] PRN Reason: Protocol Last Admin: 06/04/17 22:15 Dose: 133.3 mls/hr Morphine Sulfate (Morphine) 4 mg IVP Q6H PRN PRN Reason: Pain, severe (8-10) Ondansetron HCl (Zofran Inj) 4 mg IVP Q6H PRN PRN Reason: Nausea/Vomiting Last Admin: 06/04/17 18:21 Dose: 4 mg Pantoprazole Sodium (Protonix Inj) 40 mg IVP DAILY [facility] Last Admin: 06/04/17 09:07 Dose: 40 mg Tramadol HCl (Ultram) 50 mg PO Q6H PRN PRN Reason: Pain, moderate (4-7) Last Admin: 06/04/17 21:12 Dose: 50 mg - Labs Labs: 06/05/17 06:30 06/04/17 10:20 - Constitutional Appears: Non-toxic, No Acute Distress - Head Exam Head Exam: NORMAL INSPECTION - Eye Exam Eye Exam: Normal appearance - ENT Exam ENT Exam: Mucous Membranes Moist - Respiratory Exam Respiratory Exam: NORMAL BREATHING PATTERN. absent: Accessory Muscle Use, Respiratory Distress - Cardiovascular Exam Cardiovascular Exam: absent: Bradycardia, Tachycardia - GI/Abdominal Exam GI & Abdominal Exam: Soft, Tenderness (LUQ/epigastric TTP). absent: Distended, Guarding, Hernia, Rebound - Extremities Exam Extremities Exam: Normal Inspection - Neurological Exam Neurological Exam: Alert, Awake, Normal Gait, Oriented x3 - Psychiatric Exam Psychiatric exam: Normal Affect, Normal Mood - Skin Skin Exam: Dry, Intact, Normal Color, Warm Assessment and Plan - Assessment and Plan (Free Text) Assessment: 47 y/o F w/ microperf diverticulitis - cont CLD - pain management - cont IV Abx - cont conservative medical management Pt discussed w/ Dr. Rajinder Patel DO PGY2
--- NOTE | 2017-06-05 09:31 | CP.PCM.CON ---
History of Present Illness - History of Present Illness History of Present Illness: This 47-year-old patient presented to the emergency room with the worsening of the left-sided abdominal pain. She said this pain started in the low intensity about 2-3 weeks ago. Progressively got worse. Never had an any bleeding per rectum until today. She experienced bright red blood per rectum today. No vomiting. No change of bowel habits before. No fever. Patient did have a CT scan of the abdomen and pelvis which showed a significant inflammatory changes in the left colon with a multiple diverticula in the descending and also sigmoid area. Also suspicious of small microperforation with a contained air. Also found to have asked to small indeterminate lesion in the liver On clear liquid diet she feels her abdominal pain as such is slightly better.. The patient was seen in the emergency room in [facility] and she was managed conservatively blood tests and x-rays sent home in the past OTHER POSSIBLE MEDICAL HISTORY ssignificant as above SOCIAL HISTORY DENIES SMOKING OR ALCOHOL FAMILY HISTORY mmother had bone cancer REVIEW OF SYSTEM positive as above other systems reviewed Past Patient History - Tetanus Immunizations Tetanus Immunization: Unknown - Past Social History Smoking Status: Never Smoked - CARDIAC Hx Cardiac Disorders: No - PULMONARY Hx Respiratory Disorders: No - NEUROLOGICAL Hx Neurological Disorder: No - HEENT Hx HEENT Problems: No - RENAL Hx Chronic Kidney Disease: No - ENDOCRINE/METABOLIC Hx Endocrine Disorders: No - HEMATOLOGICAL/ONCOLOGICAL Hx Blood Disorders: No - INTEGUMENTARY Hx Dermatological Problems: No - MUSCULOSKELETAL/RHEUMATOLOGICAL Hx Musculoskeletal Disorders: Yes Other/Comment: scica left side - GASTROINTESTINAL Hx Gastrointestinal Disorders: No - GENITOURINARY/GYNECOLOGICAL Hx Genitourinary Disorders: No - PSYCHIATRIC Hx Psychophysiologic Disorder: No Hx Substance Use: No - SURGICAL HISTORY Hx Surgeries: No Meds Allergies/Adverse Reactions: Allergies Allergy/AdvReac Type Severity Reaction Status Date / Time No Known Allergies Allergy Verified 06/03/17 18:28 - Medications Medications: Current Medications Acetaminophen (Tylenol 325mg Tab) 650 mg PO Q6H PRN PRN Reason: Pain, Mild (1-3) Sodium Chloride (Sodium Chloride 0.9%) 1,000 mls @ 150 mls/hr IV .Q6H40M [facility] Last Admin: 06/04/17 17:38 Dose: 150 mls/hr Metronidazole (Flagyl) 500 mg in 100 mls @ 100 mls/hr IVPB Q8 [facility] PRN Reason: Protocol Last Admin: 06/04/17 21:07 Dose: 100 mls/hr Ciprofloxacin (Cipro 400mg/200ml Dsw) 400 mg in 200 mls @ 133.3 mls/hr IVPB Q12 [facility] PRN Reason: Protocol Last Admin: 06/04/17 22:15 Dose: 133.3 mls/hr Morphine Sulfate (Morphine) 4 mg IVP Q6H PRN PRN Reason: Pain, severe (8-10) Ondansetron HCl (Zofran Inj) 4 mg IVP Q6H PRN PRN Reason: Nausea/Vomiting Last Admin: 06/04/17 18:21 Dose: 4 mg Pantoprazole Sodium (Protonix Inj) 40 mg IVP DAILY [facility] Last Admin: 06/04/17 09:07 Dose: 40 mg Tramadol HCl (Ultram) 50 mg PO Q6H PRN PRN Reason: Pain, moderate (4-7) Last Admin: 06/04/17 21:12 Dose: 50 mg Physical Exam - Constitutional Appears: No Acute Distress - Head Exam Head Exam: ATRAUMATIC, NORMOCEPHALIC - Eye Exam Eye Exam: EOMI, PERRL. absent: Scleral icterus - ENT Exam ENT Exam: Mucous Membranes Moist, Normal Exam - Neck Exam Neck exam: Positive for: Full Rom. Negative for: Lymphadenopathy - Respiratory Exam Respiratory Exam: Clear to Auscultation Bilateral, NORMAL BREATHING PATTERN. absent: Rales, Rhonchi - Cardiovascular Exam Cardiovascular Exam: +S1, +S2. absent: JVD - GI/Abdominal Exam GI & Abdominal Exam: Normal Bowel Sounds, Soft, Tenderness Additional comments: Tenderness Mainly in the left lower quadrant area no rebound or guarding - Extremities Exam Extremities exam: Positive for: normal inspection. Negative for: calf tenderness - Neurological Exam Neurological exam: Alert, Oriented x3 - Psychiatric Exam Psychiatric exam: Normal Affect, Normal Mood - Skin Skin Exam: Intact, Normal Color Results - Vital Signs Recent Vital Signs: Last Vital Signs Temp 98.1 F 06/04/17 08:36 Pulse 73 06/04/17 08:36 Resp 20 06/04/17 08:36 BP 111/53 L 06/04/17 08:36 Pulse Ox 98 06/04/17 08:36 - Labs Result Diagrams: 06/05/17 06:30 06/04/17 10:20 Labs: Laboratory Results - last 24 hr 06/04/17 06/04/17 06/04/17 00:34 10:20 10:20 WBC 6.1 D RBC 4.06 Hgb 12.2 Hct 36.3 MCV 89.4 MCH 30.0 MCHC 33.6 RDW 11.8 Plt Count 309 MPV 10.2 Gran % 67.3 Lymph % (Auto) 22.8 Hamilton % (Auto) 8.7 H Eos % (Auto) 1.0 L Baso % (Auto) 0.2 Gran # 4.11 Lymph # 1.4 Hamilton # 0.5 Eos # 0.1 Baso # 0.01 Sodium 140 Potassium 3.7 Chloride 104 Carbon Dioxide 25 Anion Gap 15 BUN 6 L Creatinine 0.7 Est GFR ( Amer) > 60 Est GFR (Non-Af Amer) > 60 Random Glucose 109 Calcium 9.1 Total Bilirubin 0.6 AST 27 ALT 34 Alkaline Phosphatase 81 Total Protein 7.1 Albumin 3.6 Globulin 3.5 Albumin/Globulin Ratio 1.0 L Stool Occult Blood Negative Assessment & Plan - Assessment and Plan (Free Text) Assessment: This is a 47-year-old patient presented with the left-sided abdominal pain progressively over a period of 2-3 weeks. The CAT scan showed a multiple diverticula with inflammatory changes and possible contained perforation. Patient did have episodes of rectal per rectum today. The differential diagnosis sshould include a diverticulitis with a contained perforation, ischemic colitis, inflammatory bowel disease. Differential diagnoses bleeding should include colitis hemorrhoids and a diverticular bleed The CT was reviewed patient has small independent roommate hepatic lesions Other comorbidities include obesity rECOMMENDATIONS 11. Continue clear liquid diet 2. Continue antibiotics as per ID 3. Stool culture 4. Stool for C. difficile 5. Follow up on the hemoglobin and hematocrit 6. In view of the contained perforation would try to avoid a flexible sigmoidoscopy as an initial evaluation. Would consider repeating CT with the by mouth contrast prior sigmoidoscopic evaluation 77. Would request MRI of the abdomen with contrast to evaluate the hepatic lesion as the CT with contrast was inconclusive - Date & Time Date: 06/04/17 Time: 15:00
[2017-06-05] MEDS: Ciprofloxacin 400mg/200ml D5W 400 MG/200 ML BAG IVPB SCH ×2 (09:53→22:04)
[2017-06-05 12:11] LABS: ALB/GLOB RATIO 0.9 (1.1-1.8); ALKALINE PHOSPHATASE 76 U/L (38-133); ALT/SGPT 31 U/L (7-56); AST/SGOT 28 U/L (15-39); BILIRUBIN,TOTAL 0.6 mg/dL (0.2-1.3); BLOOD UREA NITROGEN 3 mg/dL (7-21); CALCIUM 8.8 mg/dL (8.4-10.5); CARBON DIOXIDE 25 mmol/L (21-33); CHLORIDE 107 mmol/L (98-107); GFR AFRICAN-AMERICAN > 60; GLUCOSE,RANDOM 81 mg/dL (70-110); POTASSIUM 3.5 mmol/L (3.6-5.0); SODIUM 140 mmol/L (132-148); TOTAL PROTEIN 6.5 g/dL (5.8-8.3)
--- NOTE | 2017-06-05 17:17 | PN ---
DATE: SUBJECTIVE: The patient seen yesterday and today for diverticulitis rather mild, but she is unable to tolerate oral feedings because of nausea. The pain is much better. The tenderness is almost gone. She is passing gas without a bowel movement. Increase to diet that she tolerates and discharge her on antibiotic will be the plan. Delta Calvillo MD
--- NOTE | 2017-06-05 18:06 | CP.PCM.PN ---
Subjective - Date & Time of Evaluation Date of Evaluation: 06/05/17 Time of Evaluation: 16:45 - Subjective Subjective: Infectious Disease Follow Up: June 05, 2017 47 yo AA female with abdominal pain for 1 month in the left upper and lower quadrant. CT scan showing diverticulitis of the descending colon with possible phlegmon or abscess. On antibiotics and being monitored. Medical issues including morbid obesity. Patient feeling better today with conservative treatment. Objective - Vital Signs/Intake and Output Vital Signs (last 24 hours): Temp Pulse Resp BP Pulse Ox 98.5 F 85 20 131/69 97 06/05/17 07:21 06/05/17 07:21 06/05/17 07:21 06/05/17 07:21 06/05/17 07:21 Intake and Output: 06/05/17 06/05/17 06:59 18:59 Intake Total 2400 960 Balance 2400 960 - Medications Medications: Current Medications Acetaminophen (Tylenol 325mg Tab) 650 mg PO Q6H PRN PRN Reason: Pain, Mild (1-3) Metronidazole (Flagyl) 500 mg in 100 mls @ 100 mls/hr IVPB Q8 [facility] PRN Reason: Protocol Last Admin: 06/05/17 13:44 Dose: 100 mls/hr Ciprofloxacin (Cipro 400mg/200ml Dsw) 400 mg in 200 mls @ 133.3 mls/hr IVPB Q12 [facility] PRN Reason: Protocol Last Admin: 06/05/17 09:53 Dose: 133.3 mls/hr Sodium Chloride (Sodium Chloride 0.9%) 1,000 mls @ 100 mls/hr IV .Q10H [facility] Last Admin: 06/05/17 11:29 Dose: 100 mls/hr Morphine Sulfate (Morphine) 4 mg IVP Q6H PRN PRN Reason: Pain, severe (8-10) Ondansetron HCl (Zofran Inj) 4 mg IVP Q6H PRN PRN Reason: Nausea/Vomiting Last Admin: 06/04/17 18:21 Dose: 4 mg Pantoprazole Sodium (Protonix Inj) 40 mg IVP DAILY [facility] Last Admin: 06/05/17 09:54 Dose: 40 mg Tramadol HCl (Ultram) 50 mg PO Q6H PRN PRN Reason: Pain, moderate (4-7) Last Admin: 06/04/17 21:12 Dose: 50 mg - Labs Labs: 06/05/17 06:30 06/05/17 07:45 - Constitutional Appears: Non-toxic, No Acute Distress - Head Exam Head Exam: ATRAUMATIC, NORMOCEPHALIC - Eye Exam Eye Exam: EOMI, PERRL Pupil Exam: NORMAL ACCOMODATION, PERRL - ENT Exam ENT Exam: Mucous Membranes Moist, Normal External Ear Exam, TM's Normal Bilaterally - Neck Exam Neck Exam: Full ROM, Normal Inspection - Respiratory Exam Respiratory Exam: Clear to Ausculation Bilateral, NORMAL BREATHING PATTERN. absent: Rales, Rhonchi, Wheezes - Cardiovascular Exam Cardiovascular Exam: REGULAR RHYTHM, RRR, +S1, +S2 - GI/Abdominal Exam GI & Abdominal Exam: Soft, Tenderness, Normal Bowel Sounds. absent: Distended - Extremities Exam Extremities Exam: Full ROM, Normal Inspection - Neurological Exam Neurological Exam: Alert, Awake, CN II-XII Intact, Oriented x3 - Psychiatric Exam Psychiatric exam: Normal Affect, Normal Mood - Skin Skin Exam: Intact, Normal Color Assessment and Plan - Assessment and Plan (Free Text) Assessment: 47 yo AA female with diverticulitis with signs of small perforation on CT scan with potential early abscess. No leukocytosis and no fevers. The patient was started on Cipro and Flagyl for antibiotic coverage which is reasonable. On IV fluids and a clear diet currently. Monitor. Appears to be improving. Patient states she is feeling better. Thank you for allowing me to participate in the care of the patient, we will follow with you.
[2017-06-05] MEDS ORDERED: HYDROmorphone 0.5 mg/0.5 ml ISec IVP PRN (22:22)
--- NOTE | 2017-06-05 22:27 | CP.PCM.PCO ---
Physician Communication Note - Physician Communication Note Physician Communication Note: new RUQ pain, worse w/ morphine. switch to dilaudid prn pain. RUQ U/S in am
--- NOTE | 2017-06-05 23:18 | PN ---
DATE: 06/05/2017 SUBJECTIVE: This 47-year-old female was examined at her bedside. Her case was reviewed with herself, her nurse, and co-consultants. I have discussed this case in detail with Dr. Jimenez from GI who has plans to order a CT of the abdomen and pelvis to be repeated with oral contrast. He feels that the patient should continue on clear liquid diet only at the present time as well as parenteral antibiotics including Cipro 400 mg IV q. 12 hours and Flagyl 500 mg IV q. 8 hours. The case has also been reviewed by Dr. Clif Curiel from infectious disease who concurs with this recommendation and the patient at present denies any fever, chills, chest pain, shortness of breath and there has been no report of bright red blood per rectum. PHYSICAL EXAMINATION: VITAL SIGNS: Temperature is 98.5, respirations 20, pulse 85, and blood pressure 131/69 with a pulse ox of 97% on room air. traffic monitor specialist shows normal sinus rhythm. HEENT: Head is normocephalic and atraumatic. Eyes, No icterus. Ears, clear. Throat, noninjected. NECK: Supple. HEART: Regular S1 and S2. No pathological rubs, murmurs, or gallops. LUNGS: Clear to auscultation. ABDOMEN: Obese. There is no palpable organomegaly. No rebound. No guarding. No tenderness. EXTREMITIES: No clubbing, no cyanosis, no edema. SKIN: Without rash. NEUROLOGICAL: Intact. PSYCHOLOGICAL: Alert and oriented x3. VASCULAR: Legs are warm to touch. LABORATORY DATA: White count 6100, hemoglobin 11.3, hematocrit 34.5, platelets 288,000. Sodium 140, potassium 3.5, chloride 107, bicarbonate 25, BUN 3, creatinine 0.6. Random blood sugar 81. All liver function testing was normal including bilirubin 0.6, AST 28, ALT 31, and alkaline phosphatase 76. Lipase was normal at 87. IMPRESSION: A 47-year-old female with diverticulitis and a questionable perforation with pericolonic abscess on initial CT of abdomen in this patient with abdominal for the past three weeks, now improving on intravenous fluids, intravenous antibiotics, and clear liquid diet only with comorbidities of morbid obesity and delusional newly noted anemia of acute illness. Also, with questionable melanotic stool yesterday. PLAN: Cipro 400 mg IV q. 12 hours, Flagyl 500 mg IV q. 8 hours, Protonix 40 mg IV daily, 0.9 saline 100 mL per hour, Zofran 4 mg IV q. 6 hours p.r.n. nausea and vomiting, clear liquid diet only, anti-embolism stockings, the patient has been advised to ambulate with assistance. Repeat comprehensive metabolic panel and CBC has been ordered for the a.m. Of note, blood and urine cultures remain negative to date. The patient awaits gastroenterology followup by Dr. Jmienez who is planning to order CT of abdomen and pelvis with oral contrast and to proceed with possible rectosigmoidoscopy based on results of the above. Further workup will be entertained with GI surgery and infectious disease. There are no plans for surgery at the present time. Duration of clear liquid diet, IV antibiotics to be determined and all of this has been discussed in detail with the patient at her bedside. She remains on the cardiac unit. Karol Banks MD MTDD
[2017-06-05] MEDS: HYDROmorphone 0.5 mg/0.5 ml ISec IVP PRN (23:21)
[2017-06-06] MEDS: HYDROmorphone 0.5 mg/0.5 ml ISec IVP PRN ×3 (03:39→16:33)
[2017-06-06] MEDS: metroNIDAZOLE IV 500 mg/100 ml 500 MG/100 ML BAG IVPB SCH ×3 (05:12→21:12)
[2017-06-06 06:15] LABS: GRAN # 10.76 (1.4-6.5); GRAN % 84.8 % (50.0-68.0); HEMATOCRIT 35.7 % (36.0-48.0); LYMPH # 0.7 (1.2-3.4); LYMPH % 5.1 % (22.0-35.0); MEAN CELL VOLUME 88.1 fl (80.0-105.0); MEAN CORPUSCULAR HEMOGLOBIN 29.6 pg (25.0-35.0); MEAN CORPUSCULAR HGB CONC 33.6 g/dl (31.0-37.0); MEAN PLATELET VOLUME 10.3 fl (7.0-11.0); MONO # 1.3 (0.1-0.6); MONO % 10.1 % (1.0-6.0); RED CELL DISTRIBUTION WIDTH 11.8 % (11.5-14.5); WHITE BLOOD COUNT 12.7 10^3/ul (4.5-11.0)
[2017-06-06 06:48] LABS: ALB/GLOB RATIO 0.9 (1.1-1.8); ALKALINE PHOSPHATASE 77 U/L (38-133); ALT/SGPT 24 U/L (7-56); AST/SGOT 22 U/L (15-39); BLOOD UREA NITROGEN < 2 mg/dL (7-21); CARBON DIOXIDE 27 mmol/L (21-33); CHLORIDE 102 mmol/L (95-110); GFR AFRICAN-AMERICAN > 60; GLUCOSE,RANDOM 105 mg/dL (70-110); POTASSIUM 4.1 mmol/L (3.6-5.0); SODIUM 138 mmol/L (132-148)
[2017-06-06] MEDS ORDERED: Barium Sulfate Susp 2.1% w/v, 2.0% w/w 450 mL Bottle PO ONE (06:50)
--- NOTE | 2017-06-06 07:23 | CON ---
DATE: 06/05/2017 HISTORY OF PRESENT ILLNESS: This patient was seen and evaluated earlier. The patient is now complaining of increased abdominal pain in the left lower quadrant area. No further episodes of bleeding. The patient has been only on a clear liquid diet. PHYSICAL EXAMINATION: VITAL SIGNS: Stable. HEENT: Atraumatic. Anicteric. NECK: Supple. HEART: S1 and S2 heard. LUNGS: Bilateral air entry present. ABDOMEN: Soft. There is tenderness present in the left lower quadrant area. EXTREMITIES: No edema. No cyanosis. NEUROLOGIC: Alert and oriented and moves all extremities. LABORATORY DATA: Reviewed. IMPRESSION AND PLAN: This 47-year-old patient admitted with previous history of discomfort to the left side of the abdomen and recently worsening of the symptoms. CT scan showed thickening of the colon, descending and proximal sigmoid. The patient also has diverticulosis and there is a small passage of the air suggestive of probable aspirate contained perforation was suspected. Had episode of bleeding per rectum yesterday. Hemoglobin is stable. CT scan was reviewed and shows significant inflammatory changes with possible small contained perforation. In view of her abdominal pain and contained perforation, it is reasonable to consider repeating the CT scan with only p.o. contrast to further evaluate. We will consider advancing diet only after reviewing repeat CT scan. Thank you very much for allowing us to participate in the care of the patient. Jessica Jimenez MD
[2017-06-06] MEDS: Sodium Chloride 0.9% 1,000 ML IV SCH (07:30)
--- NOTE | 2017-06-06 07:31 | RAD ---
HISTORY: Chest pain COMPARISON: 06/03/2017. FINDINGS: LUNGS: The lungs are well inflated and clear. PLEURA: No significant pleural effusion identified, no pneumothorax apparent. CARDIOVASCULAR: Normal. OSSEOUS STRUCTURES: No significant abnormalities. VISUALIZED UPPER ABDOMEN: Normal. OTHER FINDINGS: None. IMPRESSION: No active pulmonary disease.
--- NOTE | 2017-06-06 08:05 | CP.PCM.PN ---
Subjective - Date & Time of Evaluation Date of Evaluation: 06/06/17 Time of Evaluation: 06:45 - Subjective Subjective: General Surgery Dr. Calvillo Pt S&E @bedside. NAEO. c/o intermittent RUQ pain. denies N/V, F/C. lower abd pain resolved. tolerating FLD. Objective - Vital Signs/Intake and Output Vital Signs (last 24 hours): Temp Pulse Resp BP Pulse Ox 98.4 F 81 20 140/80 97 06/06/17 07:52 06/06/17 07:52 06/06/17 07:52 06/06/17 07:52 06/06/17 07:52 Intake and Output: 06/06/17 06/06/17 06:59 18:59 Intake Total 2400 240 Balance 2400 240 - Medications Medications: Current Medications Acetaminophen (Tylenol 325mg Tab) 650 mg PO Q6H PRN PRN Reason: Pain, Mild (1-3) Hydromorphone HCl (Dilaudid) 0.5 mg IVP Q3 PRN PRN Reason: Pain, severe (8-10) Last Admin: 06/06/17 07:29 Dose: 0.5 mg Metronidazole (Flagyl) 500 mg in 100 mls @ 100 mls/hr IVPB Q8 [facility] PRN Reason: Protocol Last Admin: 06/06/17 05:12 Dose: 100 mls/hr Ciprofloxacin (Cipro 400mg/200ml Dsw) 400 mg in 200 mls @ 133.3 mls/hr IVPB Q12 [facility] PRN Reason: Protocol Last Admin: 06/05/17 22:04 Dose: 133.3 mls/hr Sodium Chloride (Sodium Chloride 0.9%) 1,000 mls @ 100 mls/hr IV .Q10H [facility] Last Admin: 06/06/17 07:30 Dose: 100 mls/hr Ondansetron HCl (Zofran Inj) 4 mg IVP Q6H PRN PRN Reason: Nausea/Vomiting Last Admin: 06/05/17 21:06 Dose: 4 mg Pantoprazole Sodium (Protonix Inj) 40 mg IVP DAILY [facility] Last Admin: 06/05/17 09:54 Dose: 40 mg Tramadol HCl (Ultram) 50 mg PO Q6H PRN PRN Reason: Pain, moderate (4-7) Last Admin: 06/04/17 21:12 Dose: 50 mg - Labs Labs: 06/06/17 05:20 06/06/17 05:20 - Constitutional Appears: Non-toxic, No Acute Distress - Head Exam Head Exam: NORMAL INSPECTION - Eye Exam Eye Exam: Normal appearance - ENT Exam ENT Exam: Mucous Membranes Moist - Respiratory Exam Respiratory Exam: NORMAL BREATHING PATTERN. absent: Accessory Muscle Use, Respiratory Distress - Cardiovascular Exam Cardiovascular Exam: absent: Bradycardia, Tachycardia - GI/Abdominal Exam GI & Abdominal Exam: Soft, Tenderness (RUQ TTP). absent: Distended, Guarding, Rebound - Extremities Exam Extremities Exam: Normal Inspection - Neurological Exam Neurological Exam: Alert, Awake, Oriented x3 - Psychiatric Exam Psychiatric exam: Normal Affect, Normal Mood - Skin Skin Exam: Dry, Intact, Normal Color, Warm Assessment and Plan - Assessment and Plan (Free Text) Assessment: 47 y/o F w/ microperf diverticulitis, pain resoled, now w/ RUQ abd pain - f/u Abd U/S - pain management - cont FLD - cont IV Abx - cont conservative medical management Pt discussed w/ Dr. Rajinder Patel DO PGY2
--- NOTE | 2017-06-06 08:32 | US ---
HISTORY: Acute RUQ abdominal pain COMPARISON: None. TECHNIQUE: Grayscale imaging was performed. FINDINGS: LIVER: Measures 16.8 cm in length. Normal echogenicity of the liver parenchyma. No mass. No intrahepatic bile duct dilatation. GALLBLADDER: There are no gallstones. The gallbladder is well distended without wall thickening, pericholecystic fluid or positive sonographic Ariza's sign. COMMON BILE DUCT: Measures 3.0 mm. No stones. No dilatation. PANCREAS: Unremarkable as visualized. No mass. No ductal dilatation. RIGHT KIDNEY: Measures 10.0 cm in length. Normal echogenicity. No calculus, mass, or hydronephrosis. AORTA: No aneurysmal dilatation. IVC: Unremarkable. OTHER FINDINGS: None . IMPRESSION: No cholelithiasis or biliary dilatation.
--- NOTE | 2017-06-06 10:48 | CT ---
PROCEDURE: CT Abdomen and Pelvis without intravenous contrast HISTORY: ddiverticulitis with contained perforation follow COMPARISON: 06/03/2017 CT TECHNIQUE: Without contrast. Contrast Dose: Radiation dose: Total exam DLP = 1225 mGy-cm. This CT exam was performed using one or more of the following dose reduction techniques: Automated exposure control, adjustment of the mA and/or kV according to patient size, and/or use of iterative reconstruction technique. FINDINGS: LOWER THORAX: Unremarkable. LIVER: Unremarkable. No gross lesion or ductal dilatation. GALLBLADDER AND BILE DUCTS: Unremarkable. PANCREAS: Unremarkable. No gross lesion or ductal dilatation. SPLEEN: Unremarkable. ADRENALS: Unremarkable. No mass. KIDNEYS AND URETERS: Unremarkable. No hydronephrosis. No solid mass. VASCULATURE: Unremarkable. No aortic aneurysm. BOWEL: There is an increase in the mesenteric inflammation arising from diverticulitis in the descending colon. There is now secondary involvement of the adjacent loop of small bowel which shows severe mural thickening and narrowing of the lumen. The finding is best seen on axial 77 through 108. There is a small amount of extra luminal gas. There is no evidence of abscess formation. APPENDIX: Unremarkable. Normal appendix. PERITONEUM: Small amount of free fluid LYMPH NODES: Unremarkable. No enlarged lymph nodes. BLADDER: Unremarkable. REPRODUCTIVE: Unremarkable. BONES: No acute fracture. OTHER FINDINGS: None. IMPRESSION: There is an increase in the mesenteric inflammation arising from diverticulitis in the descending colon. There is now secondary involvement of the adjacent loop of small bowel which shows severe mural thickening and narrowing of the lumen. There is a small amount of extra luminal gas. There is no evidence of abscess formation.
[2017-06-06] MEDS: Ciprofloxacin 400mg/200ml D5W 400 MG/200 ML BAG IVPB SCH ×2 (11:24→21:12)
--- NOTE | 2017-06-06 14:06 | CP.PCM.PN ---
<Jessica Jimenez V - Last Filed: 06/06/17 22:55> Objective - Vital Signs/Intake and Output Vital Signs (last 24 hours): Temp Pulse Resp BP Pulse Ox 99.8 F H 79 19 136/70 99 06/06/17 16:00 06/06/17 16:00 06/06/17 16:00 06/06/17 16:00 06/06/17 16:00 Intake and Output: 06/06/17 06/07/17 18:59 06:59 Intake Total 540 Balance 540 - Medications Medications: Current Medications Acetaminophen (Tylenol 325mg Tab) 650 mg PO Q6H PRN PRN Reason: Pain, Mild (1-3) Hydromorphone HCl (Dilaudid) 0.5 mg IVP Q3 PRN PRN Reason: Pain, severe (8-10) Last Admin: 06/06/17 16:33 Dose: 0.5 mg Metronidazole (Flagyl) 500 mg in 100 mls @ 100 mls/hr IVPB Q8 [facility] PRN Reason: Protocol Last Admin: 06/06/17 21:12 Dose: 100 mls/hr Ciprofloxacin (Cipro 400mg/200ml Dsw) 400 mg in 200 mls @ 133.3 mls/hr IVPB Q12 [facility] PRN Reason: Protocol Last Admin: 06/06/17 21:12 Dose: 133.3 mls/hr Sodium Chloride (Sodium Chloride 0.9%) 1,000 mls @ 100 mls/hr IV .Q10H [facility] Last Admin: 06/06/17 07:30 Dose: 100 mls/hr Dextrose/Sodium Chloride (Dextrose 5%/0.9% Ns 1000 Ml) 1,000 mls @ 100 mls/hr IV .Q10H [facility] Ondansetron HCl (Zofran Inj) 4 mg IVP Q6H PRN PRN Reason: Nausea/Vomiting Last Admin: 06/06/17 11:27 Dose: 4 mg Pantoprazole Sodium (Protonix Inj) 40 mg IVP DAILY [facility] Last Admin: 06/06/17 11:26 Dose: 40 mg Tramadol HCl (Ultram) 50 mg PO Q6H PRN PRN Reason: Pain, moderate (4-7) Last Admin: 06/04/17 21:12 Dose: 50 mg - Labs Labs: 06/06/17 05:20 06/06/17 05:20 Attending/Attestation - Attestation Notes (Text): p 06/06/17 22:55 <NevarezRenuka wong J - Last Filed: 06/07/17 08:27> Subjective - Date & Time of Evaluation Date of Evaluation: 06/06/17 Time of Evaluation: 10:05 - Subjective Subjective: seen and examined at the bedside earlier today. The chart was reviewed. Patient complains of pain in the right upper quadrant, no reports of nausea vomiting fever chills shortness of breath or chest pain. Patient had bowel movement no reports of bleeding. She had an abdominal ultrasound this morning and that reported no cholelithiasis or biliary dilatation the common bile duct measured 3.0 mm. She also however went for CT scan of abdomen and pelvis with oral contrast and that revealed increase in the mesenteric inflammation arising from diverticulitis in the descending colon. There is now secondary involvement of adjacent loops of small bowel which shows severe mural thickening and narrowing of the lumen. There is also small amount of extraluminal gas. No evidence of abscess formation. Objective - Vital Signs/Intake and Output Vital Signs (last 24 hours): Temp Pulse Resp BP Pulse Ox 98.4 F 81 20 140/80 97 06/06/17 07:52 06/06/17 07:52 06/06/17 07:52 06/06/17 07:52 06/06/17 07:52 Intake and Output: 06/06/17 06/06/17 06:59 18:59 Intake Total 2400 240 Balance 2400 240 - Medications Medications: Current Medications Acetaminophen (Tylenol 325mg Tab) 650 mg PO Q6H PRN PRN Reason: Pain, Mild (1-3) Hydromorphone HCl (Dilaudid) 0.5 mg IVP Q3 PRN PRN Reason: Pain, severe (8-10) Last Admin: 06/06/17 07:29 Dose: 0.5 mg Metronidazole (Flagyl) 500 mg in 100 mls @ 100 mls/hr IVPB Q8 [facility] PRN Reason: Protocol Last Admin: 06/06/17 13:39 Dose: 100 mls/hr Ciprofloxacin (Cipro 400mg/200ml Dsw) 400 mg in 200 mls @ 133.3 mls/hr IVPB Q12 [facility] PRN Reason: Protocol Last Admin: 06/06/17 11:24 Dose: 133.3 mls/hr Sodium Chloride (Sodium Chloride 0.9%) 1,000 mls @ 100 mls/hr IV .Q10H [facility] Last Admin: 06/06/17 07:30 Dose: 100 mls/hr Ondansetron HCl (Zofran Inj) 4 mg IVP Q6H PRN PRN Reason: Nausea/Vomiting Last Admin: 06/06/17 11:27 Dose: 4 mg Pantoprazole Sodium (Protonix Inj) 40 mg IVP DAILY [facility] Last Admin: 06/06/17 11:26 Dose: 40 mg Tramadol HCl (Ultram) 50 mg PO Q6H PRN PRN Reason: Pain, moderate (4-7) Last Admin: 06/04/17 21:12 Dose: 50 mg - Labs Labs: 06/06/17 05:20 06/06/17 05:20 - Constitutional Appears: No Acute Distress - Head Exam Head Exam: NORMOCEPHALIC - Eye Exam Eye Exam: Normal appearance. absent: Scleral icterus - ENT Exam ENT Exam: Mucous Membranes Moist - Respiratory Exam Respiratory Exam: Clear to Ausculation Bilateral, NORMAL BREATHING PATTERN. absent: Respiratory Distress - Cardiovascular Exam Cardiovascular Exam: +S1, +S2 - GI/Abdominal Exam GI & Abdominal Exam: Soft, Tenderness, Normal Bowel Sounds. absent: Guarding, Organomegaly, Rebound - Extremities Exam Extremities Exam: Normal Capillary Refill. absent: Calf Tenderness - Neurological Exam Neurological Exam: Alert, Awake, Oriented x3 - Skin Skin Exam: Dry, Warm Assessment and Plan - Assessment and Plan (Free Text) Assessment: Assessment: Left-sided abdominal pain, acute diverticulitis,with questionable perforation and pericolonic abscess on initial CT scan, status post repeat CT scan with oral contrast showing increasing mesenteric inflammation no abscess noted Episode of blood per rectum, no further bleeding Plan: Continue IV antibiotics, on Flagyl and Cipro Continue Protonix daily Continue IV fluids now NPO, conitnue IVF for hydration On dilaudid for pain management Monitor H&H Seen and discussed with Dr. Jimenez.
--- NOTE | 2017-06-06 14:10 | PN ---
DATE: 06/06/2017 SUBJECTIVE: This 47-year-old female was examined at her bedside. Her case was reviewed in detail with herself and her nurse, Melba Mcgill, registered nurse. The patient had nausea and vomiting yesterday and had been advanced to a full liquid diet by the surgical team. I have reviewed this with the nurse. At present, the patient remains nauseous and will be made n.p.o. and given IV fluids. She did complete the gallbladder ultrasound that showed no evidence of stones and she is completing a CT of the abdomen and pelvis with oral contrast at present. She denies any active chest pain or shortness of breath and her surveillance system monitor shows a normal sinus rhythm. PHYSICAL EXAMINATION: VITAL SIGNS: Temperature 98.4, respirations 20, pulse 81, and blood pressure 140/80 with a pulse ox of 97% on room air. HEENT: Head is normocephalic and atraumatic. Eyes, no icterus. Ears, clear. Throat, noninjected. NECK: Supple. HEART: Regular S1 and S2. LUNGS: Clear. ABDOMEN: Obese with mild left lower quadrant discomfort on palpation. No rebound, no guarding, and mild midepigastric tenderness. EXTREMITIES: No clubbing, no cyanosis, no edema. SKIN: Without rash. NEUROLOGICAL: Intact. PSYCHOLOGICAL: Alert. VASCULAR: Legs are warm to touch. LABORATORY DATA: White count 40945, hemoglobin 12, hematocrit 35.7, platelets 300,000. Sodium 138, potassium 4.1, chloride 102, bicarbonate 27, BUN 2, creatinine 0.6. Random blood sugar 105. All liver function testing was normal including bilirubin 1.0, AST 22, ALT 24, and alkaline phosphatase 77. Blood culture showed no growth at 48 hours and urine culture is negative. IMPRESSION: A 47-year-old female admitted with diverticulitis and a questionable left lower colon diverticular abscess now with recurrent nausea and vomiting when the surgical team advanced her to a full liquid diet. My plan as discussed with nurse, Artem, and the patient is to make her n.p.o. She will continue IV ciprofloxacin 400 mg IV q. 12 hours and Flagyl 500 mg IV q. 8 hours. She is ordered to receive Protonix 40 mg IV daily and D5 0.9 saline at 100 mL per hour. She will receive Zofran 4 mg IV q. 6 hours p.r.n. nausea and vomiting and has been instructed on incentive spirometry q. 1 hour. The patient is wearing anti-embolism stockings and is being monitored by Dr. Jessica Jimenez from GI as well as Dr. Clif Curiel from infectious disease and Dr. Delta Calvillo from surgery. Ultimate plan is to await the results of CT and GI follow up. She will remain n.p.o. at present. She will continue on IV fluids and be treated supportively. Duration of antibiotics to be decided by GI and infectious disease and patient will remain on the cardiac unit at present. All this was discussed in detail with the patient, nurse, and co-consultants. Prognosis remains stable at present. Karol Banks MD MTDD
--- NOTE | 2017-06-06 20:51 | CP.PCM.PN ---
Subjective - Date & Time of Evaluation Date of Evaluation: 06/06/17 Time of Evaluation: 20:49 - Subjective Subjective: Patient was seen at bedside. She complained of gas pain. Has no other complaints. Denied chest pain, sob , nausea, sweating, palpitations. ROS:Negative except as mentioned above. Medical record was reviewed. This 47 year old woman was admitted left sided abdominal pain/diverticulitis. Has PMH of morbid obesity, S/P 3 deliveries. Objective - Vital Signs/Intake and Output Vital Signs (last 24 hours): Temp Pulse Resp BP Pulse Ox 99.8 F H 79 19 136/70 99 06/06/17 16:00 06/06/17 16:00 06/06/17 16:00 06/06/17 16:00 06/06/17 16:00 Intake and Output: 06/06/17 06/07/17 18:59 06:59 Intake Total 540 Balance 540 - Medications Medications: Current Medications Acetaminophen (Tylenol 325mg Tab) 650 mg PO Q6H PRN PRN Reason: Pain, Mild (1-3) Hydromorphone HCl (Dilaudid) 0.5 mg IVP Q3 PRN PRN Reason: Pain, severe (8-10) Last Admin: 06/06/17 16:33 Dose: 0.5 mg Metronidazole (Flagyl) 500 mg in 100 mls @ 100 mls/hr IVPB Q8 [facility] PRN Reason: Protocol Last Admin: 06/06/17 13:39 Dose: 100 mls/hr Ciprofloxacin (Cipro 400mg/200ml Dsw) 400 mg in 200 mls @ 133.3 mls/hr IVPB Q12 [facility] PRN Reason: Protocol Last Admin: 06/06/17 11:24 Dose: 133.3 mls/hr Sodium Chloride (Sodium Chloride 0.9%) 1,000 mls @ 100 mls/hr IV .Q10H [facility] Last Admin: 06/06/17 07:30 Dose: 100 mls/hr Dextrose/Sodium Chloride (Dextrose 5%/0.9% Ns 1000 Ml) 1,000 mls @ 100 mls/hr IV .Q10H [facility] Ondansetron HCl (Zofran Inj) 4 mg IVP Q6H PRN PRN Reason: Nausea/Vomiting Last Admin: 06/06/17 11:27 Dose: 4 mg Pantoprazole Sodium (Protonix Inj) 40 mg IVP DAILY [facility] Last Admin: 06/06/17 11:26 Dose: 40 mg Tramadol HCl (Ultram) 50 mg PO Q6H PRN PRN Reason: Pain, moderate (4-7) Last Admin: 06/04/17 21:12 Dose: 50 mg - Labs Labs: 06/06/17 05:20 06/06/17 05:20 - Constitutional Appears: Well, No Acute Distress - Head Exam Head Exam: ATRAUMATIC, NORMAL INSPECTION, NORMOCEPHALIC - Eye Exam Eye Exam: Normal appearance - ENT Exam ENT Exam: Normal External Ear Exam - Neck Exam Neck Exam: Normal Inspection - Respiratory Exam Respiratory Exam: NORMAL BREATHING PATTERN - Cardiovascular Exam Cardiovascular Exam: absent: JVD - GI/Abdominal Exam GI & Abdominal Exam: absent: Distended - Rectal Exam Rectal Exam: Deferred - Exam Additional comments: Deferred. - Extremities Exam Extremities Exam: Normal Inspection - Back Exam Back Exam: NORMAL INSPECTION - Neurological Exam Neurological Exam: Alert, Awake, Oriented x3 - Psychiatric Exam Psychiatric exam: Normal Affect, Normal Mood - Skin Skin Exam: Normal Color Assessment and Plan - Assessment and Plan (Free Text) Assessment: Gas pains. Left sided lower abdominal pain. Diverticulitis. Morbid obesity. Plan: Pepcid 20 mg IV stat.(Patient is NPO.) Continue present management.
--- NOTE | 2017-06-06 23:06 | CP.PCM.PN ---
Subjective - Date & Time of Evaluation Date of Evaluation: 06/06/17 Time of Evaluation: 20:15 - Subjective Subjective: Infectious Disease Follow Up: June 06, 2017 47 yo AA female with abdominal pain for 1 month in the left upper and lower quadrant. CT scan showing diverticulitis of the descending colon with possible phlegmon or abscess. On antibiotics and being monitored. Medical issues including morbid obesity. Patient feeling better today with conservative treatment but still having RUQ abdominal pain. The patient had a repeat CT scan done. The CT scan showed increase in the mesenteric inflammation arising from diverticulitis in the descending colon. There is now secondary involvement of adjacent loops of small bowel which shows severe mural thickening and narrowing of the lumen. There is also small amount of extraluminal gas. No evidence of abscess formation. Objective - Vital Signs/Intake and Output Vital Signs (last 24 hours): Temp Pulse Resp BP Pulse Ox 99.8 F H 79 19 136/70 99 06/06/17 16:00 06/06/17 16:00 06/06/17 16:00 06/06/17 16:00 06/06/17 16:00 Intake and Output: 06/06/17 06/07/17 18:59 06:59 Intake Total 540 Balance 540 - Medications Medications: Current Medications Acetaminophen (Tylenol 325mg Tab) 650 mg PO Q6H PRN PRN Reason: Pain, Mild (1-3) Hydromorphone HCl (Dilaudid) 0.5 mg IVP Q3 PRN PRN Reason: Pain, severe (8-10) Last Admin: 06/06/17 16:33 Dose: 0.5 mg Metronidazole (Flagyl) 500 mg in 100 mls @ 100 mls/hr IVPB Q8 JEANCARLOS PRN Reason: Protocol Last Admin: 06/06/17 21:12 Dose: 100 mls/hr Ciprofloxacin (Cipro 400mg/200ml Dsw) 400 mg in 200 mls @ 133.3 mls/hr IVPB Q12 JEANCARLOS PRN Reason: Protocol Last Admin: 06/06/17 21:12 Dose: 133.3 mls/hr Sodium Chloride (Sodium Chloride 0.9%) 1,000 mls @ 100 mls/hr IV .Q10H [facility] Last Admin: 06/06/17 07:30 Dose: 100 mls/hr Dextrose/Sodium Chloride (Dextrose 5%/0.9% Ns 1000 Ml) 1,000 mls @ 100 mls/hr IV .Q10H [facility] Ondansetron HCl (Zofran Inj) 4 mg IVP Q6H PRN PRN Reason: Nausea/Vomiting Last Admin: 06/06/17 11:27 Dose: 4 mg Pantoprazole Sodium (Protonix Inj) 40 mg IVP DAILY JE[facility]ARLOS Last Admin: 06/06/17 11:26 Dose: 40 mg Tramadol HCl (Ultram) 50 mg PO Q6H PRN PRN Reason: Pain, moderate (4-7) Last Admin: 06/04/17 21:12 Dose: 50 mg - Labs Labs: 06/06/17 05:20 06/06/17 05:20 - Constitutional Appears: Non-toxic, No Acute Distress, Chronically Ill - Head Exam Head Exam: ATRAUMATIC, NORMOCEPHALIC - Eye Exam Eye Exam: EOMI, PERRL Pupil Exam: NORMAL ACCOMODATION, PERRL - ENT Exam ENT Exam: Mucous Membranes Moist, Normal External Ear Exam, TM's Normal Bilaterally - Neck Exam Neck Exam: Full ROM, Normal Inspection - Respiratory Exam Respiratory Exam: Clear to Ausculation Bilateral, NORMAL BREATHING PATTERN. absent: Rales, Rhonchi, Wheezes - Cardiovascular Exam Cardiovascular Exam: REGULAR RHYTHM, RRR, +S1, +S2 - GI/Abdominal Exam GI & Abdominal Exam: Soft, Normal Bowel Sounds. absent: Distended, Tenderness - Extremities Exam Extremities Exam: Full ROM, Normal Inspection - Neurological Exam Neurological Exam: Alert, Awake, CN II-XII Intact, Oriented x3 - Psychiatric Exam Psychiatric exam: Normal Affect, Normal Mood - Skin Skin Exam: Dry, Warm Assessment and Plan - Assessment and Plan (Free Text) Assessment: 47 yo AA female with diverticulitis with signs of small perforation on CT scan with potential early abscess. No leukocytosis and no fevers. The patient was started on Cipro and Flagyl for antibiotic coverage which is reasonable. On IV fluids and a clear diet currently. Monitor. Appears to be improving. She has periods of RUQ pain. CT scan showing increase in the mesenteric inflammation arising from diverticulitis in the descending colon. There is now secondary involvement of adjacent loops of small bowel which shows severe mural thickening and narrowing of the lumen. There is also small amount of extraluminal gas. No evidence of abscess formation. Conservative treatment being performed. Thank you for allowing me to participate in the care of the patient, we will follow with you.
[2017-06-07] MEDS: HYDROmorphone 0.5 mg/0.5 ml ISec IVP PRN ×3 (03:15→14:40)
[2017-06-07] MEDS: metroNIDAZOLE IV 500 mg/100 ml 500 MG/100 ML BAG IVPB SCH ×3 (05:29→21:44)
[2017-06-07 07:26] VITALS: RESP 20
--- NOTE | 2017-06-07 07:40 | CP.PCM.PN ---
Subjective - Date & Time of Evaluation Date of Evaluation: 06/07/17 Time of Evaluation: 07:37 - Subjective Subjective: General Surgery Progress note for Dr. Calvillo Patient S&E at bedside. Patient had an episode of pain last night, which patient associated with gas. Patient was placed NPO overnight. Patient states her pain feels better today. Diet was changed to clear liquids for breakfast to monitor for diet tolerance. Patient denies F/C, N/V, patient admits to abdominal pain that is resolving, and admits to flatus. Objective - Vital Signs/Intake and Output Vital Signs (last 24 hours): Temp Pulse Resp BP Pulse Ox 98.3 F 82 20 117/70 98 06/07/17 06:00 06/07/17 06:00 06/07/17 06:00 06/07/17 06:00 06/07/17 06:00 Intake and Output: 06/07/17 06/07/17 06:59 18:59 Intake Total 0 1400 Balance 0 1400 - Medications Medications: Current Medications Acetaminophen (Tylenol 325mg Tab) 650 mg PO Q6H PRN PRN Reason: Pain, Mild (1-3) Hydromorphone HCl (Dilaudid) 0.5 mg IVP Q3 PRN PRN Reason: Pain, severe (8-10) Last Admin: 06/07/17 03:15 Dose: 0.5 mg Metronidazole (Flagyl) 500 mg in 100 mls @ 100 mls/hr IVPB Q8 JEANCARLOS PRN Reason: Protocol Last Admin: 06/07/17 05:29 Dose: 100 mls/hr Ciprofloxacin (Cipro 400mg/200ml Dsw) 400 mg in 200 mls @ 133.3 mls/hr IVPB Q12 JEANCARLOS PRN Reason: Protocol Last Admin: 06/06/17 21:12 Dose: 133.3 mls/hr Sodium Chloride (Sodium Chloride 0.9%) 1,000 mls @ 100 mls/hr IV .Q10H [facility] Last Admin: 06/06/17 07:30 Dose: 100 mls/hr Dextrose/Sodium Chloride (Dextrose 5%/0.9% Ns 1000 Ml) 1,000 mls @ 100 mls/hr IV .Q10H [facility] Ondansetron HCl (Zofran Inj) 4 mg IVP Q6H PRN PRN Reason: Nausea/Vomiting Last Admin: 06/06/17 11:27 Dose: 4 mg Pantoprazole Sodium (Protonix Inj) 40 mg IVP DAILY JEANCARLOS Last Admin: 06/06/17 11:26 Dose: 40 mg Tramadol HCl (Ultram) 50 mg PO Q6H PRN PRN Reason: Pain, moderate (4-7) Last Admin: 06/04/17 21:12 Dose: 50 mg - Labs Labs: 06/06/17 05:20 06/06/17 05:20 - Constitutional Appears: Non-toxic, No Acute Distress - Head Exam Head Exam: NORMAL INSPECTION - Eye Exam Eye Exam: EOMI, Normal appearance - ENT Exam ENT Exam: Mucous Membranes Moist - Neck Exam Neck Exam: Full ROM, Normal Inspection - Respiratory Exam Respiratory Exam: Clear to Ausculation Bilateral, NORMAL BREATHING PATTERN. absent: Accessory Muscle Use, Respiratory Distress - Cardiovascular Exam Cardiovascular Exam: REGULAR RHYTHM. absent: Bradycardia, Tachycardia - GI/Abdominal Exam GI & Abdominal Exam: Soft, Tenderness. absent: Firm, Guarding, Rebound - Extremities Exam Extremities Exam: Full ROM, Normal Inspection. absent: Joint Swelling, Pedal Edema, Tenderness - Back Exam Back Exam: Full ROM, NORMAL INSPECTION. absent: paraspinal tenderness, rash noted - Neurological Exam Neurological Exam: Alert, Awake, Normal Gait - Psychiatric Exam Psychiatric exam: Normal Affect, Normal Mood - Skin Skin Exam: Dry, Intact, Normal Color, Warm Assessment and Plan - Assessment and Plan (Free Text) Assessment: 47F w/ microperforated diverticulitis. Plan: - monitor diet tolerance, consider repeat CT Abdomen if pain increases - Diet: CLD - c/w pain management - c/w IV Abx - c/w conservative medical management discussed with Dr. Rajinder Spence, DO PGY1
[2017-06-07 09:01] LABS: HEMATOCRIT 35.6 % (36.0-48.0); MEAN CELL VOLUME 87.7 fl (80.0-105.0); MEAN CORPUSCULAR HEMOGLOBIN 30.3 pg (25.0-35.0); MEAN CORPUSCULAR HGB CONC 34.6 g/dl (31.0-37.0); MEAN PLATELET VOLUME 9.9 fl (7.0-11.0); RED CELL DISTRIBUTION WIDTH 11.9 % (11.5-14.5)
[2017-06-07] MEDS: Ciprofloxacin 400mg/200ml D5W 400 MG/200 ML BAG IVPB SCH ×2 (09:05→21:45)
[2017-06-07 09:11] LABS: ALB/GLOB RATIO 0.9 (1.1-1.8); ALKALINE PHOSPHATASE 84 U/L (38-133); ALT/SGPT 21 U/L (7-56); AST/SGOT 17 U/L (15-39); BLOOD UREA NITROGEN 2 mg/dL (7-21); CARBON DIOXIDE 30 mmol/L (21-33); CHLORIDE 99 mmol/L (95-110); GFR AFRICAN-AMERICAN > 60; GLUCOSE,RANDOM 126 mg/dL (70-110); POTASSIUM 3.7 mmol/L (3.6-5.0); SODIUM 139 mmol/L (132-148); TOTAL PROTEIN 7.4 g/dL (5.8-8.3)
[2017-06-07] MEDS: Dextrose 5%/0.9% NS 1,000 ML IV SCH ×2 (09:11→20:00)
--- NOTE | 2017-06-07 11:07 | CP.PCM.PN ---
<Renuka Nevarez - Last Filed: 06/07/17 11:05> Subjective - Date & Time of Evaluation Date of Evaluation: 06/07/17 Time of Evaluation: 09:40 - Subjective Subjective: Seen and examined at the bedside this morning, the chart was reviewed. Patient attempted to have water this morning but became nauseous and had abdominal pain. Prior to this she reports abdominal pain had improved. She did report having a soft brown BM. Denies shortness of breath, chest pain fever or chills. Objective - Vital Signs/Intake and Output Vital Signs (last 24 hours): Temp Pulse Resp BP Pulse Ox 98.3 F 82 20 117/70 98 06/07/17 08:09 06/07/17 08:09 06/07/17 08:09 06/07/17 08:09 06/07/17 08:09 Intake and Output: 06/07/17 06/07/17 06:59 18:59 Intake Total 0 1640 Balance 0 1640 - Medications Medications: Current Medications Acetaminophen (Tylenol 325mg Tab) 650 mg PO Q6H PRN PRN Reason: Pain, Mild (1-3) Hydromorphone HCl (Dilaudid) 0.5 mg IVP Q3 PRN PRN Reason: Pain, severe (8-10) Last Admin: 06/07/17 08:46 Dose: 0.5 mg Metronidazole (Flagyl) 500 mg in 100 mls @ 100 mls/hr IVPB Q8 JEANCARLOS PRN Reason: Protocol Last Admin: 06/07/17 05:29 Dose: 100 mls/hr Ciprofloxacin (Cipro 400mg/200ml Dsw) 400 mg in 200 mls @ 133.3 mls/hr IVPB Q12 JEANCARLOS PRN Reason: Protocol Last Admin: 06/07/17 09:05 Dose: 133.3 mls/hr Sodium Chloride (Sodium Chloride 0.9%) 1,000 mls @ 100 mls/hr IV .Q10H [facility] Last Admin: 06/06/17 07:30 Dose: 100 mls/hr Dextrose/Sodium Chloride (Dextrose 5%/0.9% Ns 1000 Ml) 1,000 mls @ 100 mls/hr IV .Q10H [facility] [place] Last Admin: 06/07/17 09:11 Dose: 100 mls/hr Ondansetron HCl (Zofran Inj) 4 mg IVP Q6H PRN PRN Reason: Nausea/Vomiting Last Admin: 06/06/17 11:27 Dose: 4 mg Pantoprazole Sodium (Protonix Inj) 40 mg IVP DAILY JEANCARLOS Last Admin: 06/07/17 09:05 Dose: 40 mg Tramadol HCl (Ultram) 50 mg PO Q6H PRN PRN Reason: Pain, moderate (4-7) Last Admin: 06/04/17 21:12 Dose: 50 mg - Labs Labs: 06/07/17 08:40 06/07/17 08:40 - Constitutional Appears: No Acute Distress - Head Exam Head Exam: NORMOCEPHALIC - Eye Exam Eye Exam: Normal appearance. absent: Scleral icterus - ENT Exam ENT Exam: Mucous Membranes Moist - Neck Exam Neck Exam: Normal Inspection - Respiratory Exam Respiratory Exam: Clear to Ausculation Bilateral, NORMAL BREATHING PATTERN. absent: Respiratory Distress - Cardiovascular Exam Cardiovascular Exam: +S1, +S2 - GI/Abdominal Exam GI & Abdominal Exam: Soft, Tenderness (LLQ), Normal Bowel Sounds. absent: Distended, Guarding, Rebound - Extremities Exam Extremities Exam: Normal Capillary Refill. absent: Calf Tenderness, Pedal Edema - Neurological Exam Neurological Exam: Alert, Awake, Oriented x3 - Skin Skin Exam: Dry, Warm Assessment and Plan - Assessment and Plan (Free Text) Assessment: Assessment: Left-sided abdominal pain, acute diverticulitis,with questionable perforation and pericolonic abscess on initial CT scan, status post repeat CT scan with oral contrast showing increasing mesenteric inflammation no abscess noted Episode of blood per rectum, no further bleeding Plan: Continue IV antibiotics, on Flagyl and Cipro Continue Protonix daily Continue IV fluids attempted to start clear liquid, had nuasea and abdominal pain, will now make NPO, continue IVF for hydration start Heparin 5000 u SQ for DVT prophylaxsis On dilaudid for pain management Monitor H&H continue surgical FU Seen and discussed with Dr. Jimenez. <Jessica Jimenez V - Last Filed: 06/07/17 23:24> Objective - Vital Signs/Intake and Output Vital Signs (last 24 hours): Temp Pulse Resp BP Pulse Ox 97.9 F 77 20 123/73 99 06/07/17 16:00 06/07/17 16:00 06/07/17 16:00 06/07/17 16:00 06/07/17 16:00 Intake and Output: 06/07/17 06/08/17 18:59 06:59 Intake Total 1640 0 Balance 1640 0 - Medications Medications: Current Medications Heparin Sodium (Porcine) (Heparin) 5,000 units SC Q12 JEANCARLOS PRN Reason: Protocol Last Admin: 06/07/17 21:45 Dose: 5,000 units Hydromorphone HCl (Dilaudid) 0.5 mg IVP Q3 PRN PRN Reason: Pain, severe (8-10) Last Admin: 06/07/17 14:40 Dose: 0.5 mg Metronidazole (Flagyl) 500 mg in 100 mls @ 100 mls/hr IVPB Q8 JEANCARLOS PRN Reason: Protocol Last Admin: 06/07/17 21:44 Dose: 100 mls/hr Ciprofloxacin (Cipro 400mg/200ml Dsw) 400 mg in 200 mls @ 133.3 mls/hr IVPB Q12 JEANCARLOS PRN Reason: Protocol Last Admin: 06/07/17 21:45 Dose: 133.3 mls/hr Dextrose/Sodium Chloride (Dextrose 5%/0.9% Ns 1000 Ml) 1,000 mls @ 100 mls/hr IV .Q10H [facility] [place] Last Admin: 06/07/17 20:00 Dose: 100 mls/hr Ondansetron HCl (Zofran Inj) 4 mg IVP Q6H PRN PRN Reason: Nausea/Vomiting Last Admin: 06/07/17 20:55 Dose: 4 mg Pantoprazole Sodium (Protonix Inj) 40 mg IVP DAILY [facility] [place] Last Admin: 06/07/17 09:05 Dose: 40 mg Tramadol HCl (Ultram) 50 mg PO Q6H PRN PRN Reason: Pain, moderate (4-7) Last Admin: 06/04/17 21:12 Dose: 50 mg - Labs Labs: 06/07/17 08:40 06/07/17 08:40 PT 12.9 Seconds (9.9-11.8) H 06/07/17 11:50 INR 1.19 (0.93-1.08) H 06/07/17 11:50 APTT 31.5 Seconds (23.7-30.8) H 06/07/17 11:50 Attending/Attestation - Attestation I have personally seen and examined this patient.: Yes I have fully participated in the care of the patient.: Yes I have reviewed all pertinent clinical information, including history, physical exam and plan: Yes Notes (Text): 06/07/17 23:24 p
[2017-06-07 12:10] LABS: INR 1.19 (0.93-1.08); PARTIAL THROMBOPLASTIN TIME 31.5 Seconds (23.7-30.8)
--- NOTE | 2017-06-07 14:07 | PN ---
DATE: SUBJECTIVE: Ms. Amita Valencia is seen on the floor. She is more comfortable than before, but she is not completely resolved. She is starting to have flatus and bowel movements, crampy abdominal pain that is improving. Abdomen is less tender, and she seems to be improving nicely. Delta Calvillo MD
--- NOTE | 2017-06-07 18:13 | CP.PCM.PN ---
Subjective - Date & Time of Evaluation Date of Evaluation: 06/07/17 Time of Evaluation: 17:00 - Subjective Subjective: Infectious Disease Follow Up: June 07, 2017 47 yo AA female with abdominal pain for 1 month in the left upper and lower quadrant. CT scan showing diverticulitis of the descending colon with possible phlegmon or abscess. On antibiotics and being monitored. Medical issues including morbid obesity. Patient feeling better today with conservative treatment but still having RUQ abdominal pain. The patient had a repeat CT scan done. The CT scan showed increase in the mesenteric inflammation arising from diverticulitis in the descending colon. There is now secondary involvement of adjacent loops of small bowel which shows severe mural thickening and narrowing of the lumen. There is also small amount of extraluminal gas. No evidence of abscess formation. Still with episodes of abdominal pain. Was made NPO again overnight and restarted on a liquid diet again today. Objective - Vital Signs/Intake and Output Vital Signs (last 24 hours): Temp Pulse Resp BP Pulse Ox 97.9 F 77 20 123/73 99 06/07/17 16:00 06/07/17 16:00 06/07/17 16:00 06/07/17 16:00 06/07/17 16:00 Intake and Output: 06/07/17 06/07/17 06:59 18:59 Intake Total 0 1640 Balance 0 1640 - Medications Medications: Current Medications Heparin Sodium (Porcine) (Heparin) 5,000 units SC Q12 JEANCARLOS PRN Reason: Protocol Last Admin: 06/07/17 14:32 Dose: 5,000 units Hydromorphone HCl (Dilaudid) 0.5 mg IVP Q3 PRN PRN Reason: Pain, severe (8-10) Last Admin: 06/07/17 14:40 Dose: 0.5 mg Metronidazole (Flagyl) 500 mg in 100 mls @ 100 mls/hr IVPB Q8 JEANCARLOS PRN Reason: Protocol Last Admin: 06/07/17 14:32 Dose: 100 mls/hr Ciprofloxacin (Cipro 400mg/200ml Dsw) 400 mg in 200 mls @ 133.3 mls/hr IVPB Q12 JEANCARLOS PRN Reason: Protocol Last Admin: 06/07/17 09:05 Dose: 133.3 mls/hr Dextrose/Sodium Chloride (Dextrose 5%/0.9% Ns 1000 Ml) 1,000 mls @ 100 mls/hr IV .Q10H [facility] Last Admin: 06/07/17 09:11 Dose: 100 mls/hr Ondansetron HCl (Zofran Inj) 4 mg IVP Q6H PRN PRN Reason: Nausea/Vomiting Last Admin: 06/06/17 11:27 Dose: 4 mg Pantoprazole Sodium (Protonix Inj) 40 mg IVP DAILY JE[facility]ARLOS Last Admin: 06/07/17 09:05 Dose: 40 mg Tramadol HCl (Ultram) 50 mg PO Q6H PRN PRN Reason: Pain, moderate (4-7) Last Admin: 06/04/17 21:12 Dose: 50 mg - Labs Labs: 06/07/17 08:40 06/07/17 08:40 PT 12.9 Seconds (9.9-11.8) H 06/07/17 11:50 INR 1.19 (0.93-1.08) H 06/07/17 11:50 APTT 31.5 Seconds (23.7-30.8) H 06/07/17 11:50 - Constitutional Appears: Non-toxic, No Acute Distress - Head Exam Head Exam: ATRAUMATIC, NORMOCEPHALIC - Eye Exam Eye Exam: EOMI, PERRL Pupil Exam: NORMAL ACCOMODATION, PERRL - ENT Exam ENT Exam: Mucous Membranes Moist, Normal External Ear Exam, TM's Normal Bilaterally - Neck Exam Neck Exam: Full ROM, Normal Inspection - Respiratory Exam Respiratory Exam: Clear to Ausculation Bilateral, NORMAL BREATHING PATTERN. absent: Rales, Rhonchi, Wheezes - Cardiovascular Exam Cardiovascular Exam: REGULAR RHYTHM, RRR, +S1, +S2 - GI/Abdominal Exam GI & Abdominal Exam: Soft, Normal Bowel Sounds. absent: Distended, Tenderness - Extremities Exam Extremities Exam: Full ROM, Normal Inspection - Neurological Exam Neurological Exam: Alert, Awake, CN II-XII Intact, Oriented x3 - Psychiatric Exam Psychiatric exam: Normal Affect, Normal Mood - Skin Skin Exam: Dry, Warm Assessment and Plan - Assessment and Plan (Free Text) Assessment: 47 yo AA female with diverticulitis with signs of small perforation on CT scan with potential early abscess. No leukocytosis and no fevers. The patient was started on Cipro and Flagyl for antibiotic coverage which is reasonable. On IV fluids and a clear diet currently. Monitor. Appears to be improving. She has periods of RUQ pain. CT scan showing increase in the mesenteric inflammation arising from diverticulitis in the descending colon. There is now secondary involvement of adjacent loops of small bowel which shows severe mural thickening and narrowing of the lumen. There is also small amount of extraluminal gas. No evidence of abscess formation. Conservative treatment being performed. Still with episodes of abdominal pain. Thank you for allowing me to participate in the care of the patient, we will follow with you.
--- NOTE | 2017-06-07 21:25 | PN ---
DATE: 06/07/2017 SUBJECTIVE: This is a 47-year-old female who was examined at her bedside and her case was reviewed with herself, nursing, and co-consultants. The patient experienced abdominal pain last evening, required parenteral Pepcid in addition to her IV Protonix and was made n.p.o. When seen by the surgical team this morning, they felt the patient could be safely advanced to a clear liquid trial, and the patient is awaiting liquids for lunch. At present, she denies any fever or chills. She had a low-grade temperature yesterday with mild leukocytosis. At present, she is in a normal sinus rhythm on the potline monitor and denying any chest pain or shortness of breath. PHYSICAL EXAMINATION VITAL SIGNS: Temperature is 98.3, respirations 20, pulse 82, and blood pressure 117/70 with a pulse oximetry of 98% on room air. HEENT: Head is normocephalic and atraumatic. Eyes, no icterus. Ears, clear. Throat, non-injected. NECK: Supple. HEART: Regular S1, S2. LUNGS: Clear. ABDOMEN: Soft. No rebound, no guarding. There is mild left lower quadrant discomfort on palpation. EXTREMITIES: No clubbing, no cyanosis, no edema. SKIN: Without rash. NEUROLOGICAL: Unchanged. PSYCHOLOGICAL: Alert and oriented x3. VASCULAR: Legs, warm to touch. LABORATORY DATA: Today's white count is 11,000, hemoglobin 12.3, hematocrit 35.6, platelets 317,000. Sodium 139, potassium 3.7, chloride 99, bicarb 30, BUN 2, creatinine 0.6, random blood sugar was 126. Bilirubin 1.0, AST 17, ALT 21, and alkaline phosphatase 84. Stool for occult blood negative. Blood culture showed no growth in 3 days. Urine culture is negative. IMPRESSION: This is a 47-year-old female with left lower colon diverticulitis with comorbidities of peptic ulcer disease and morbid obesity. PLAN: At present is to continue n.p.o. diet as the patient is being readied for endoscopy. She continues on incentive spirometry q.1 hour. She is ordered to receive Cipro 400 mg IV q.12, Flagyl 500 mg IV q.8, D5 0.9 saline at 100 mL per hour, Dilaudid 0.5 mg IV q.3 hours p.r.n. severe pain, heparin 5000 units subcu q.12, Protonix 40 mg IV daily, and Zofran 4 mg IV q.6 hours p.r.n. nausea and vomiting. The patient is being followed daily by Surgery, GI, and Infectious Disease and additional testings will be entertained based on her clinical progress. I have asked the nursing staff to discuss dietary recommendations with Dr. Jessica Jimenez, and for him to make the decision regarding advancement of diet when able. The patient remains in normal sinus rhythm on the potline monitor. All questions were answered and discussed with the patient, nursing, and co-consultants. Karol Banks MD MTDD
[2017-06-08] MEDS: HYDROmorphone 0.5 mg/0.5 ml ISec IVP PRN ×2 (00:31→13:34)
[2017-06-08] MEDS: metroNIDAZOLE IV 500 mg/100 ml 500 MG/100 ML BAG IVPB SCH ×3 (05:31→22:03)
--- NOTE | 2017-06-08 07:30 | CP.PCM.PN ---
Subjective - Date & Time of Evaluation Date of Evaluation: 06/08/17 Time of Evaluation: 07:28 - Subjective Subjective: General Surgery Progress note for Dr. Calvillo Patient S&E at bedside. Patient was NPO yesterday per GI, Patient is advanced to clears this morning. Will follow for tolerance. Patient states her pain feels better today. Patient denies F/C, N/V, Diarrhea. Objective - Vital Signs/Intake and Output Vital Signs (last 24 hours): Temp Pulse Resp BP Pulse Ox 97.9 F 77 20 123/73 99 06/07/17 16:00 06/07/17 16:00 06/07/17 16:00 06/07/17 16:00 06/07/17 16:00 Intake and Output: 06/08/17 06/08/17 06:59 18:59 Intake Total 1200 Balance 1200 - Medications Medications: Current Medications Heparin Sodium (Porcine) (Heparin) 5,000 units SC Q12 JEANCARLOS PRN Reason: Protocol Last Admin: 06/07/17 21:45 Dose: 5,000 units Hydromorphone HCl (Dilaudid) 0.5 mg IVP Q3 PRN PRN Reason: Pain, severe (8-10) Last Admin: 06/08/17 00:31 Dose: 0.5 mg Metronidazole (Flagyl) 500 mg in 100 mls @ 100 mls/hr IVPB Q8 JEANCARLOS PRN Reason: Protocol Last Admin: 06/08/17 05:31 Dose: 100 mls/hr Ciprofloxacin (Cipro 400mg/200ml Dsw) 400 mg in 200 mls @ 133.3 mls/hr IVPB Q12 JEANCARLOS PRN Reason: Protocol Last Admin: 06/07/17 21:45 Dose: 133.3 mls/hr Dextrose/Sodium Chloride (Dextrose 5%/0.9% Ns 1000 Ml) 1,000 mls @ 100 mls/hr IV .Q10H [facility] Last Admin: 06/07/17 20:00 Dose: 100 mls/hr Ondansetron HCl (Zofran Inj) 4 mg IVP Q6H PRN PRN Reason: Nausea/Vomiting Last Admin: 06/07/17 20:55 Dose: 4 mg Pantoprazole Sodium (Protonix Inj) 40 mg IVP DAILY [facility] Last Admin: 06/07/17 09:05 Dose: 40 mg Tramadol HCl (Ultram) 50 mg PO Q6H PRN PRN Reason: Pain, moderate (4-7) Last Admin: 06/04/17 21:12 Dose: 50 mg - Labs Labs: 06/07/17 08:40 06/07/17 08:40 PT 12.9 Seconds (9.9-11.8) H 06/07/17 11:50 INR 1.19 (0.93-1.08) H 06/07/17 11:50 APTT 31.5 Seconds (23.7-30.8) H 06/07/17 11:50 - Constitutional Appears: Non-toxic - Head Exam Head Exam: NORMAL INSPECTION - Eye Exam Eye Exam: EOMI, Normal appearance. absent: Periorbital tenderness - ENT Exam ENT Exam: Mucous Membranes Moist - Neck Exam Neck Exam: Full ROM - Respiratory Exam Respiratory Exam: absent: Accessory Muscle Use, Respiratory Distress - Cardiovascular Exam Cardiovascular Exam: REGULAR RHYTHM. absent: Bradycardia, Tachycardia - GI/Abdominal Exam GI & Abdominal Exam: Soft, Normal Bowel Sounds. absent: Tenderness, Pulsatile Mass, Rebound - Extremities Exam Extremities Exam: Full ROM, Normal Inspection. absent: Pedal Edema - Neurological Exam Neurological Exam: Alert, Awake, Normal Gait - Psychiatric Exam Psychiatric exam: Normal Affect, Normal Mood - Skin Skin Exam: Dry, Intact, Normal Color, Warm Assessment and Plan - Assessment and Plan (Free Text) Assessment: 47F presents with microperforated,contained diverticulitis Plan: - monitor diet tolerance, consider repeat CT Abdomen if pain increases - Diet: CLD - c/w pain management - c/w IV Abx - c/w conservative medical management discussed with Dr. Rajinder Spence DO PGY1
[2017-06-08] MEDS: Ciprofloxacin 400mg/200ml D5W 400 MG/200 ML BAG IVPB SCH ×2 (09:43→22:04)
[2017-06-08] MEDS: Dextrose 5%/0.9% NS 1,000 ML IV SCH (09:54)
--- NOTE | 2017-06-08 15:03 | CP.PCM.PN ---
Subjective - Date & Time of Evaluation Date of Evaluation: 06/08/17 Time of Evaluation: 09:50 - Subjective Subjective: Seen and examined at the bedside earlier this morning. The chart was reviewed. Patient still has nausea, no reports of vomiting. The patient's abdominal pain has improved. No reports of fever or chills, or acute overnight events. Objective - Vital Signs/Intake and Output Vital Signs (last 24 hours): Temp Pulse Resp BP Pulse Ox 99.1 F 84 20 138/74 96 06/08/17 06:00 06/08/17 06:00 06/08/17 06:00 06/08/17 06:00 06/08/17 06:00 Intake and Output: 06/08/17 06/08/17 06:59 18:59 Intake Total 1200 0 Balance 1200 0 - Medications Medications: Current Medications Heparin Sodium (Porcine) (Heparin) 5,000 units SC Q12 JEANCARLOS PRN Reason: Protocol Last Admin: 06/08/17 09:52 Dose: 5,000 units Hydromorphone HCl (Dilaudid) 0.5 mg IVP Q3 PRN PRN Reason: Pain, severe (8-10) Last Admin: 06/08/17 13:34 Dose: 0.5 mg Metronidazole (Flagyl) 500 mg in 100 mls @ 100 mls/hr IVPB Q8 JEANCARLOS PRN Reason: Protocol Last Admin: 06/08/17 13:34 Dose: 100 mls/hr Ciprofloxacin (Cipro 400mg/200ml Dsw) 400 mg in 200 mls @ 133.3 mls/hr IVPB Q12 JEANCARLOS PRN Reason: Protocol Last Admin: 06/08/17 09:43 Dose: 133.3 mls/hr Dextrose/Sodium Chloride (Dextrose 5%/0.9% Ns 1000 Ml) 1,000 mls @ 100 mls/hr IV .Q10H JEANCARLOS Last Admin: 06/08/17 09:54 Dose: 100 mls/hr Ondansetron HCl (Zofran Inj) 4 mg IVP Q6H PRN PRN Reason: Nausea/Vomiting Last Admin: 06/08/17 13:34 Dose: 4 mg Pantoprazole Sodium (Protonix Inj) 40 mg IVP DAILY [facility] Last Admin: 06/08/17 09:43 Dose: 40 mg Tramadol HCl (Ultram) 50 mg PO Q6H PRN PRN Reason: Pain, moderate (4-7) Last Admin: 06/04/17 21:12 Dose: 50 mg - Labs Labs: 06/07/17 08:40 06/07/17 08:40 PT 12.9 Seconds (9.9-11.8) H 06/07/17 11:50 INR 1.19 (0.93-1.08) H 06/07/17 11:50 APTT 31.5 Seconds (23.7-30.8) H 06/07/17 11:50 - Constitutional Appears: No Acute Distress - Head Exam Head Exam: NORMOCEPHALIC - Eye Exam Eye Exam: Normal appearance. absent: Scleral icterus - ENT Exam ENT Exam: Mucous Membranes Moist - Neck Exam Neck Exam: Normal Inspection - Respiratory Exam Respiratory Exam: Clear to Ausculation Bilateral, NORMAL BREATHING PATTERN. absent: Respiratory Distress - GI/Abdominal Exam GI & Abdominal Exam: Soft, Tenderness (mild left lower quadrant tenderness, no rebound or guarding. improved form yesterday.), Normal Bowel Sounds. absent: Distended, Guarding, Organomegaly, Rebound - Extremities Exam Extremities Exam: Normal Capillary Refill. absent: Calf Tenderness, Pedal Edema - Neurological Exam Neurological Exam: Alert, Awake, Oriented x3 - Skin Skin Exam: Dry, Warm Assessment and Plan - Assessment and Plan (Free Text) Assessment: Assessment: Left-sided abdominal pain, acute diverticulitis,with questionable perforation and pericolonic abscess on initial CT scan, status post repeat CT scan with oral contrast showing increasing mesenteric inflammation no abscess noted Episode of blood per rectum, no further bleeding Plan: Continue IV antibiotics, on Flagyl and Cipro Continue Protonix daily Continue IV fluids start clear liquid continue IVF for hydration on Heparin SQ On dilaudid for pain management Monitor H&H if abdominal pain worsen repeat ct scan continue surgical FU discussed with Dr. Jimenez.
--- NOTE | 2017-06-08 15:04 | CP.PCM.PN ---
Subjective - Date & Time of Evaluation Date of Evaluation: 06/08/17 Time of Evaluation: 15:00 - Subjective Subjective: Infectious Disease Follow Up: June 08, 2017 47 yo AA female with abdominal pain for 1 month in the left upper and lower quadrant. CT scan showing diverticulitis of the descending colon with possible phlegmon or abscess. On antibiotics and being monitored. Medical issues including morbid obesity. Patient feeling better today with conservative treatment but still having RUQ abdominal pain. The patient had a repeat CT scan done. The CT scan showed increase in the mesenteric inflammation arising from diverticulitis in the descending colon. There is now secondary involvement of adjacent loops of small bowel which shows severe mural thickening and narrowing of the lumen. There is also small amount of extraluminal gas. No evidence of abscess formation. Still with episodes of abdominal pain. Appears to be tolerating diet without any major issues. Objective - Vital Signs/Intake and Output Vital Signs (last 24 hours): Temp Pulse Resp BP Pulse Ox 99.1 F 84 20 138/74 96 06/08/17 06:00 06/08/17 06:00 06/08/17 06:00 06/08/17 06:00 06/08/17 06:00 Intake and Output: 06/08/17 06/08/17 06:59 18:59 Intake Total 1200 0 Balance 1200 0 - Medications Medications: Current Medications Heparin Sodium (Porcine) (Heparin) 5,000 units SC Q12 JEANCARLOS PRN Reason: Protocol Last Admin: 06/08/17 09:52 Dose: 5,000 units Hydromorphone HCl (Dilaudid) 0.5 mg IVP Q3 PRN PRN Reason: Pain, severe (8-10) Last Admin: 06/08/17 13:34 Dose: 0.5 mg Metronidazole (Flagyl) 500 mg in 100 mls @ 100 mls/hr IVPB Q8 JEANCARLOS PRN Reason: Protocol Last Admin: 06/08/17 13:34 Dose: 100 mls/hr Ciprofloxacin (Cipro 400mg/200ml Dsw) 400 mg in 200 mls @ 133.3 mls/hr IVPB Q12 JEANCARLOS PRN Reason: Protocol Last Admin: 06/08/17 09:43 Dose: 133.3 mls/hr Dextrose/Sodium Chloride (Dextrose 5%/0.9% Ns 1000 Ml) 1,000 mls @ 100 mls/hr IV .Q10H JEANCARLOS Last Admin: 06/08/17 09:54 Dose: 100 mls/hr Ondansetron HCl (Zofran Inj) 4 mg IVP Q6H PRN PRN Reason: Nausea/Vomiting Last Admin: 06/08/17 13:34 Dose: 4 mg Pantoprazole Sodium (Protonix Inj) 40 mg IVP DAILY [facility] Last Admin: 06/08/17 09:43 Dose: 40 mg Tramadol HCl (Ultram) 50 mg PO Q6H PRN PRN Reason: Pain, moderate (4-7) Last Admin: 06/04/17 21:12 Dose: 50 mg - Labs Labs: 06/07/17 08:40 06/07/17 08:40 PT 12.9 Seconds (9.9-11.8) H 06/07/17 11:50 INR 1.19 (0.93-1.08) H 06/07/17 11:50 APTT 31.5 Seconds (23.7-30.8) H 06/07/17 11:50 - Constitutional Appears: Non-toxic, No Acute Distress, Chronically Ill - Head Exam Head Exam: ATRAUMATIC, NORMOCEPHALIC - Eye Exam Eye Exam: EOMI, PERRL Pupil Exam: NORMAL ACCOMODATION, PERRL - ENT Exam ENT Exam: Mucous Membranes Moist, Normal External Ear Exam, TM's Normal Bilaterally - Respiratory Exam Respiratory Exam: Clear to Ausculation Bilateral, NORMAL BREATHING PATTERN. absent: Rales, Rhonchi, Wheezes - Cardiovascular Exam Cardiovascular Exam: REGULAR RHYTHM, RRR, +S1, +S2 - GI/Abdominal Exam GI & Abdominal Exam: Soft, Normal Bowel Sounds. absent: Distended, Tenderness - Extremities Exam Extremities Exam: Full ROM, Normal Inspection - Neurological Exam Neurological Exam: Alert, Awake, CN II-XII Intact, Oriented x3 - Psychiatric Exam Psychiatric exam: Normal Affect, Normal Mood - Skin Skin Exam: Dry, Warm Assessment and Plan - Assessment and Plan (Free Text) Assessment: 47 yo AA female with diverticulitis with signs of small perforation on CT scan with potential early abscess. No leukocytosis and no fevers. The patient was started on Cipro and Flagyl for antibiotic coverage which is reasonable. On IV fluids and a clear diet currently. Monitor. Appears to be improving. She has periods of RUQ pain. CT scan showing increase in the mesenteric inflammation arising from diverticulitis in the descending colon. There is now secondary involvement of adjacent loops of small bowel which shows severe mural thickening and narrowing of the lumen. There is also small amount of extraluminal gas. No evidence of abscess formation. Conservative treatment being performed. Still with episodes of abdominal pain but improving. Appears to be tolerating diet. Thank you for allowing me to participate in the care of the patient, we will follow with you.
--- NOTE | 2017-06-08 15:39 | PN ---
SUBJECTIVE: This 47-year-old female was examined at her bedside and her case was reviewed in detail with herself, Dr. Jessica Jimenez from GI, and nurse, Dee Carpenter, registered nurse. The patient is out of bed to chair, reportedly walking independently on the medical belle. She remains in a normal sinus rhythm on the sign manufacturer and denies any fever, chills, chest pain, or shortness of breath. There has been no reports of hematemesis or melena, and yesterday, she had a small brown formed bowel movement. Of note, her repeat CT of the abdomen performed on 06/06 with oral contrast only showed an increase in the mesenteric inflammation arising from the diverticulitis in the descending colon with a secondary involvement of an adjacent loop of small bowel, which showed severe mural thickening and narrowing of the lumen. There was a small amount of extraluminal gas, but no evidence of abscess formation. This has been reviewed with Dr. Jimenez from GI, who recommends that the patient continue on IV fluid, IV antibiotics and clear liquid diet only. PHYSICAL EXAMINATION: VITAL SIGNS: Temperature is 99.1, respirations 20, pulse 84, and blood pressure 138/74, and a pulse ox of 96% on room air. HEENT: Head is normocephalic and atraumatic. Eyes, no icterus. Ears, clear. Throat, non-injected. NECK: Supple. HEART: Regular. S1 and S2. No pathological rubs, murmurs, or gallops. LUNGS: Clear to auscultation. ABDOMEN: Obese, nontender without palpable organomegaly. There is some mild left lower quadrant discomfort on palpation. No rebound. No guarding. EXTREMITIES: No clubbing, no cyanosis, no edema. SKIN: Without rash. NEUROLOGICAL: Intact. PSYCHOLOGICAL: Alert. VASCULAR: Legs warm to touch. LABORATORY DATA: White count of 11,000, hemoglobin 12.3, hematocrit 35.6, platelets 317,000. Sodium 139, potassium 3.7, chloride 99, bicarb 30, BUN 2, creatinine 0.6, random blood sugar 126. All liver function testing was normal including bilirubin 1.0, AST 17, ALT 21, and alkaline phosphatase 84. Blood culture shows no growth in 4 days and urine culture shows no growth. IMPRESSION: A 47-year-old female with morbid obesity, now with acute diverticulitis. PLAN: As discussed with Dr. Jessica Jimenez from GI is to maintain the patient on clear liquid diet only. She will receive D5 0.9 saline at 100 mL per hour, Cipro 400 mg IV q.12, Flagyl 500 mg IV q.8 under the direction of Dr. Clif Curiel from infectious disease, Protonix 40 mg IV daily, Zofran 4 mg IV q.6 hours p.r.n. nausea and vomiting, Dilaudid 0.5 mg IV q.3 hours p.r.n. severe pain, and heparin 5000 units subcu q.12. The patient continues to be monitored on a daily basis and hopefully will be able to avoid surgical intervention. All this was discussed in detail with the patient at her bedside and all questions were answered. This was also reviewed with her nurse, Dee Carpenter, as well as Dr. Jessica Jimenez and prognosis remains stable at present. Karol Banks MD MTDD
[2017-06-09] MEDS: metroNIDAZOLE IV 500 mg/100 ml 500 MG/100 ML BAG IVPB SCH ×3 (05:11→21:11)
[2017-06-09] MEDS: Dextrose 5%/0.9% NS 1,000 ML IV SCH ×2 (05:21→14:51)
--- NOTE | 2017-06-09 10:10 | CP.PCM.PN ---
Subjective - Date & Time of Evaluation Date of Evaluation: 06/09/17 Time of Evaluation: 09:25 - Subjective Subjective: Seen and examined at the bedside this morning, OOB to chair, patient continue to have nausea, no vomiting,drinks only sips of water. No reports of fever, chills, continues to have decreased abdominal pain, no complaints of increase in intensity. Reports no recent p.m. last night or this morning. No reports of shortness of breath, or chest pain. Complain of headache this morning, denies visual changes or dizziness. Objective - Vital Signs/Intake and Output Vital Signs (last 24 hours): Temp Pulse Resp BP Pulse Ox 99 F 79 20 148/82 95 06/09/17 07:51 06/09/17 07:51 06/09/17 07:51 06/09/17 07:51 06/09/17 07:51 Intake and Output: 06/09/17 06/09/17 06:59 18:59 Intake Total 240 Balance 240 - Medications Medications: Current Medications Heparin Sodium (Porcine) (Heparin) 5,000 units SC Q12 JEANCARLOS PRN Reason: Protocol Last Admin: 06/08/17 22:04 Dose: 5,000 units Hydromorphone HCl (Dilaudid) 0.5 mg IVP Q3 PRN PRN Reason: Pain, severe (8-10) Last Admin: 06/08/17 13:34 Dose: 0.5 mg Metronidazole (Flagyl) 500 mg in 100 mls @ 100 mls/hr IVPB Q8 JEANCARLOS PRN Reason: Protocol Last Admin: 06/09/17 05:11 Dose: 100 mls/hr Ciprofloxacin (Cipro 400mg/200ml Dsw) 400 mg in 200 mls @ 133.3 mls/hr IVPB Q12 JEANCARLOS PRN Reason: Protocol Last Admin: 06/08/17 22:04 Dose: 133.3 mls/hr Dextrose/Sodium Chloride (Dextrose 5%/0.9% Ns 1000 Ml) 1,000 mls @ 100 mls/hr IV .Q10H [facility] Last Admin: 06/09/17 05:21 Dose: 100 mls/hr Ondansetron HCl (Zofran Inj) 4 mg IVP Q6H PRN PRN Reason: Nausea/Vomiting Last Admin: 06/08/17 13:34 Dose: 4 mg Pantoprazole Sodium (Protonix Inj) 40 mg IVP DAILY JEANCARLOS Last Admin: 06/08/17 09:43 Dose: 40 mg Tramadol HCl (Ultram) 50 mg PO Q6H PRN PRN Reason: Pain, moderate (4-7) Last Admin: 06/09/17 08:18 Dose: 50 mg - Labs Labs: 06/07/17 08:40 06/07/17 08:40 PT 12.9 Seconds (9.9-11.8) H 06/07/17 11:50 INR 1.19 (0.93-1.08) H 06/07/17 11:50 APTT 31.5 Seconds (23.7-30.8) H 06/07/17 11:50 - Constitutional Appears: No Acute Distress - Head Exam Head Exam: NORMOCEPHALIC - Eye Exam Eye Exam: Normal appearance. absent: Scleral icterus - ENT Exam ENT Exam: Mucous Membranes Moist - Neck Exam Neck Exam: Normal Inspection - Respiratory Exam Respiratory Exam: Clear to Ausculation Bilateral, NORMAL BREATHING PATTERN. absent: Respiratory Distress - Cardiovascular Exam Cardiovascular Exam: +S1, +S2 - GI/Abdominal Exam GI & Abdominal Exam: Soft, Tenderness (mild tenderness to the left lower quadrant, no rebound or guarding), Normal Bowel Sounds. absent: Distended, Guarding, Organomegaly, Rebound - Extremities Exam Extremities Exam: Normal Capillary Refill. absent: Calf Tenderness, Pedal Edema - Neurological Exam Neurological Exam: Alert, Awake, Oriented x3 - Skin Skin Exam: Dry, Warm Assessment and Plan - Assessment and Plan (Free Text) Assessment: Assessment: Nausea Left-sided abdominal pain, acute diverticulitis,with questionable perforation and pericolonic abscess on initial CT scan, status post repeat CT scan with oral contrast showing increasing mesenteric inflammation no abscess noted Episode of blood per rectum, no further bleeding Plan: Continue IV antibiotics, on Flagyl and Cipro Continue Protonix daily Continue IV fluids encouraging clear liquid, start on ensure clear continue IVF for hydration pt OOB On dilaudid for pain management Monitor H&H AM labs, cbc& bmp pending, fu if abdominal pain worsen repeat ct scan continue surgical FU Seen and discussed with Dr. Clemente covering for Dr. Jimenez.
[2017-06-09] MEDS: Ciprofloxacin 400mg/200ml D5W 400 MG/200 ML BAG IVPB SCH ×2 (10:27→21:12)
--- NOTE | 2017-06-09 14:27 | PN ---
DATE: 06/09/2017 SUBJECTIVE: This 47-year-old female was examined at her bedside and her case was reviewed with herself,and nursing. She complained of a headache earlier today, was medicated with Ultram and is resting in her bed. There have been no reports of nausea, vomiting, diarrhea, hematemesis or melena. She continues on clear liquid diet, IV fluids and IV antibiotics,. PHYSICAL EXAMINATION: VITAL SIGNS: She is in a normal sinus rhythm on a personal injury law specialist with temperature of 99, respirations of 20, pulse of 79, and blood pressure of 148/82 and pulse oximetry of 95% on room air. HEENT: Head is normocephalic and atraumatic. Eyes, no icterus. Ears, clear. Throat, non-injected. NECK: Supple. HEART: Regular S1 and S2. LUNGS: Clear. ABDOMEN: Soft without palpable organomegaly. No rebound. No guarding. No tenderness. EXTREMITIES: No edema. SKIN: Without rash. NEUROLOGICAL: Unchanged. PSYCHOLOGICAL: Alert. VASCULAR: Legs warm to touch. LABORATORY DATA: Her white count was 11,000, hemoglobin was 12.3, hematocrit was 35.6, and platelet count was 317,000. Her sodium of 139, potassium of 3.7, chloride of 99, bicarbonate of 30, BUN of 2, and creatinine of 0.6. Random blood sugar of 126. All liver function testing was normal including bilirubin of 1, AST of 17, ALT of 21, and alkaline phosphatase of 84. IMPRESSION: A 47-year-old female with left lower colon diverticulitis. PLAN: At present, she is to continue Cipro 400 mg IV q. 12 hours., Flagyl 500 mg IV q. 8 hours., D5 0.9 saline at 100 mL per hour, and Protonix 40 mg daily. She was instructed regarding incentive spirometry, ambulation with assistance, clear liquid diet and further workup and recommendation as per infectious disease Dr. Curiel and Dr. Jimenez from GI. All this was discussed in detail with the patient, her nurse and co-consultants. Karol Banks MD [facility] # [id number] MARILUZ
[2017-06-09] MEDS ORDERED: Benzocaine 20% Cream(7 gm) MT PRN (16:30)
--- NOTE | 2017-06-09 17:11 | CP.PCM.PN ---
Subjective - Date & Time of Evaluation Date of Evaluation: 06/09/17 Time of Evaluation: 16:00 - Subjective Subjective: Infectious Disease Follow Up: June 09, 2017 76 yo female with fevers at home and left labial pain. She has been seen by surgery. The patient has leukocytosis and fevers. The patient had diaphoresis and headaches. Fevers up to 102.1 F. Currently on Zosyn and Vancomycin. The CT shows inflammatory stranding of the left labia and perineum. No definitive collection identified. 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 Was on Cardizem drip during this hospitalization. Afebrile currently. Cultures remain negative. Left labial cellulitis improving. No abscess seen in imaging studies. Supportive care. She still complains of pain in the area. Still issues with tachycardia but likely a chronic issue. Objective - Vital Signs/Intake and Output Vital Signs (last 24 hours): Temp Pulse Resp BP Pulse Ox 98.6 F 77 20 141/84 96 06/09/17 16:14 06/09/17 16:14 06/09/17 16:14 06/09/17 16:14 06/09/17 16:14 Intake and Output: 06/09/17 06/09/17 06:59 18:59 Intake Total 240 240 Balance 240 240 - Medications Medications: Current Medications Benzocaine (Orajel Pm Maximum Strength) 0 gm MT QID PRN PRN Reason: Tooth pain Heparin Sodium (Porcine) (Heparin) 5,000 units SC Q12 JEANCARLOS PRN Reason: Protocol Last Admin: 06/09/17 10:24 Dose: 5,000 units Hydromorphone HCl (Dilaudid) 0.5 mg IVP Q3 PRN PRN Reason: Pain, severe (8-10) Last Admin: 06/08/17 13:34 Dose: 0.5 mg Metronidazole (Flagyl) 500 mg in 100 mls @ 100 mls/hr IVPB Q8 JEANCARLOS PRN Reason: Protocol Last Admin: 06/09/17 14:52 Dose: 100 mls/hr Ciprofloxacin (Cipro 400mg/200ml Dsw) 400 mg in 200 mls @ 133.3 mls/hr IVPB Q12 JEANCARLOS PRN Reason: Protocol Last Admin: 06/09/17 10:27 Dose: 133.3 mls/hr Dextrose/Sodium Chloride (Dextrose 5%/0.9% Ns 1000 Ml) 1,000 mls @ 100 mls/hr IV .Q10H JEANCARLOS Last Admin: 06/09/17 14:51 Dose: 100 mls/hr Ondansetron HCl (Zofran Inj) 4 mg IVP Q6H PRN PRN Reason: Nausea/Vomiting Last Admin: 06/09/17 10:37 Dose: 4 mg Pantoprazole Sodium (Protonix Inj) 40 mg IVP DAILY [facility] Last Admin: 06/09/17 10:23 Dose: 40 mg Tramadol HCl (Ultram) 50 mg PO Q6H PRN PRN Reason: Pain, moderate (4-7) Last Admin: 06/09/17 08:18 Dose: 50 mg - Labs Labs: 06/07/17 08:40 06/07/17 08:40 PT 12.9 Seconds (9.9-11.8) H 06/07/17 11:50 INR 1.19 (0.93-1.08) H 06/07/17 11:50 APTT 31.5 Seconds (23.7-30.8) H 06/07/17 11:50 - Constitutional Appears: Non-toxic, No Acute Distress, Chronically Ill - Head Exam Head Exam: ATRAUMATIC, NORMOCEPHALIC - Eye Exam Eye Exam: EOMI, PERRL Pupil Exam: NORMAL ACCOMODATION, PERRL - ENT Exam ENT Exam: Mucous Membranes Moist, Normal External Ear Exam, TM's Normal Bilaterally - Neck Exam Neck Exam: Full ROM, Normal Inspection - Respiratory Exam Respiratory Exam: Clear to Ausculation Bilateral, NORMAL BREATHING PATTERN. absent: Rales, Rhonchi, Wheezes - Cardiovascular Exam Cardiovascular Exam: REGULAR RHYTHM, RRR, +S1, +S2 - GI/Abdominal Exam GI & Abdominal Exam: Soft, Normal Bowel Sounds. absent: Distended, Tenderness - Exam External exam: Erythema Additional comments: left labial cellulitis initially 5x2.5 cm. indurated, erythematous - improving. - Extremities Exam Extremities Exam: Joint Swelling, Pedal Edema - Neurological Exam Neurological Exam: Alert, Awake, CN II-XII Intact, Oriented x3 - Psychiatric Exam Psychiatric exam: Normal Affect, Normal Mood - Skin Additional comments: As above. Assessment and Plan - Assessment and Plan (Free Text) Assessment: 76 yo female with labial abscess. On IV Zosyn and Vancomycin for treatment. Supportive care. Surgery evaluating. OBGYN evaluating. No need for surgery as per surgery and OBGYN. Afebrile currently. Continue IV antibiotics. Improving left labial abscess/cellulitis. Cultures negative to date. Very slowly improving. Pain control as needed. Thank you for allowing me to participate in the care of the patient, we will follow with you.
[2017-06-09] MEDS: HYDROmorphone 0.5 mg/0.5 ml ISec IVP PRN (17:35)
--- NOTE | 2017-06-09 17:43 | CP.PCM.PN ---
Subjective - Date & Time of Evaluation Date of Evaluation: 06/09/17 Time of Evaluation: 16:15 - Subjective Subjective: Infectious Disease Follow Up: June 09, 2017 47 yo AA female with abdominal pain for 1 month in the left upper and lower quadrant. CT scan showing diverticulitis of the descending colon with possible phlegmon or abscess. On antibiotics and being monitored. Medical issues including morbid obesity. Patient feeling better today with conservative treatment but still having RUQ abdominal pain. The patient had a repeat CT scan done. The CT scan showed increase in the mesenteric inflammation arising from diverticulitis in the descending colon. There is now secondary involvement of adjacent loops of small bowel which shows severe mural thickening and narrowing of the lumen. There is also small amount of extraluminal gas. No evidence of abscess formation. Still with episodes of abdominal pain. Appears to be tolerating diet without any major issues. Slow recovery. Objective - Vital Signs/Intake and Output Vital Signs (last 24 hours): Temp Pulse Resp BP Pulse Ox 98.6 F 77 20 141/84 96 06/09/17 16:14 06/09/17 16:14 06/09/17 16:14 06/09/17 16:14 06/09/17 16:14 Intake and Output: 06/09/17 06/09/17 06:59 18:59 Intake Total 240 240 Balance 240 240 - Medications Medications: Current Medications Benzocaine (Orajel Pm Maximum Strength) 0 gm MT QID PRN PRN Reason: Tooth pain Heparin Sodium (Porcine) (Heparin) 5,000 units SC Q12 [facility] PRN Reason: Protocol Last Admin: 06/09/17 10:24 Dose: 5,000 units Hydromorphone HCl (Dilaudid) 0.5 mg IVP Q3 PRN PRN Reason: Pain, severe (8-10) Last Admin: 06/08/17 13:34 Dose: 0.5 mg Metronidazole (Flagyl) 500 mg in 100 mls @ 100 mls/hr IVPB Q8 [facility] PRN Reason: Protocol Last Admin: 06/09/17 14:52 Dose: 100 mls/hr Ciprofloxacin (Cipro 400mg/200ml Dsw) 400 mg in 200 mls @ 133.3 mls/hr IVPB Q12 [facility]AR[facility] PRN Reason: Protocol Last Admin: 06/09/17 10:27 Dose: 133.3 mls/hr Dextrose/Sodium Chloride (Dextrose 5%/0.9% Ns 1000 Ml) 1,000 mls @ 100 mls/hr IV .Q10H [facility] Last Admin: 06/09/17 14:51 Dose: 100 mls/hr Ondansetron HCl (Zofran Inj) 4 mg IVP Q6H PRN PRN Reason: Nausea/Vomiting Last Admin: 06/09/17 10:37 Dose: 4 mg Pantoprazole Sodium (Protonix Inj) 40 mg IVP DAILY [facility] Last Admin: 06/09/17 10:23 Dose: 40 mg Tramadol HCl (Ultram) 50 mg PO Q6H PRN PRN Reason: Pain, moderate (4-7) Last Admin: 06/09/17 08:18 Dose: 50 mg - Labs Labs: 06/07/17 08:40 06/07/17 08:40 PT 12.9 Seconds (9.9-11.8) H 06/07/17 11:50 INR 1.19 (0.93-1.08) H 06/07/17 11:50 APTT 31.5 Seconds (23.7-30.8) H 06/07/17 11:50 - Constitutional Appears: Non-toxic, No Acute Distress, Chronically Ill - Head Exam Head Exam: ATRAUMATIC, NORMOCEPHALIC - Eye Exam Eye Exam: EOMI, PERRL Pupil Exam: NORMAL ACCOMODATION, PERRL - ENT Exam ENT Exam: Mucous Membranes Moist, Normal External Ear Exam, TM's Normal Bilaterally - Neck Exam Neck Exam: Full ROM, Normal Inspection - Respiratory Exam Respiratory Exam: Clear to Ausculation Bilateral, NORMAL BREATHING PATTERN. absent: Rales, Rhonchi, Wheezes - Cardiovascular Exam Cardiovascular Exam: REGULAR RHYTHM, RRR, +S1, +S2 - GI/Abdominal Exam GI & Abdominal Exam: Soft, Normal Bowel Sounds. absent: Distended, Tenderness - Extremities Exam Extremities Exam: Full ROM, Normal Inspection - Neurological Exam Neurological Exam: Alert, Awake, CN II-XII Intact, Oriented x3 - Psychiatric Exam Psychiatric exam: Normal Affect, Normal Mood - Skin Skin Exam: Dry, Warm Assessment and Plan - Assessment and Plan (Free Text) Assessment: 47 yo AA female with diverticulitis with signs of small perforation on CT scan with potential early abscess. No leukocytosis and no fevers. The patient was started on Cipro and Flagyl for antibiotic coverage which is reasonable. On IV fluids and a clear diet currently. Monitor. Appears to be improving. She has periods of RUQ pain. CT scan showing increase in the mesenteric inflammation arising from diverticulitis in the descending colon. There is now secondary involvement of adjacent loops of small bowel which shows severe mural thickening and narrowing of the lumen. There is also small amount of extraluminal gas. No evidence of abscess formation. Conservative treatment being performed. Still with episodes of abdominal pain but improving. Appears to be tolerating diet. Very slow improvement. Thank you for allowing me to participate in the care of the patient, we will follow with you.
[2017-06-10] MEDS: metroNIDAZOLE IV 500 mg/100 ml 500 MG/100 ML BAG IVPB SCH (05:07)
[2017-06-10] MEDS: Dextrose 5%/0.9% NS 1,000 ML IV SCH (05:08)
[2017-06-10] MEDS ORDERED: Barium Sulfate Susp 2.1% w/v, 2.0% w/w 450 mL Bottle PO ONE (09:52)
[2017-06-10] MEDS: Ciprofloxacin 400mg/200ml D5W 400 MG/200 ML BAG IVPB SCH ×2 (10:29→21:35)
--- NOTE | 2017-06-10 13:25 | PN ---
DATE: 06/10/2017 SUBJECTIVE: The patient is lying in bed with multiple complaints. Her lower abdominal pain has resolved, however the patient continues to complain of nausea and regurgitation of bile and chronic back pain. She is taking clear liquid diet. PHYSICAL EXAMINATION VITAL SIGNS: Revealed temperature of 98.4, blood pressure of 136/79, and heart rate of 71. HEENT: Revealed sclerae to be white. Conjunctivae pink. Neck is supple. CHEST: Reveal lungs to be clear. HEART: Exam reveals a regular rate and rhythm. GASTROINTESTINAL: Abdomen is obese and soft. Minimal epigastric tenderness to deep palpation. No rebound or guarding. EXTREMITIES: Showed no edema. LABORATORY DATA: Revealed white blood cell count of 11 and hemoglobin of 12.3 from 06/07/2017. No recent chemistries are available. Stool for occult blood from the 06/04/2017 was negative. IMPRESSION: A 47-year-old female admitted to the hospital with abdominal pain found to have left-sided diverticulitis with clinical improvement with intravenous antibiotics. Over the last several days, the patient has complained of nausea and regurgitation. Her latest CT scan of the abdomen performed several days ago did not show any evidence of intestinal obstruction, although she did have some mural thickening of the small bowel secondary to the adjacent diverticulitis. RECOMMENDATIONS 1. We will request an obstructive series of the abdomen. 2. I will start the patient on IV Reglan. 3. Continue PPI. 4. Advance diet as tolerated. Francisco Clemente MD
--- NOTE | 2017-06-10 13:47 | PN ---
DATE: 06/10/2017 SUBJECTIVE: This is a 47-year-old female who was examined at her bedside and her case was reviewed with herself, GI and ID consultants, and nurse Rhett Tejeda, registered nurse. The patient is currently on a clear liquid diet. She is receiving parental Cipro and Flagyl for left lower quadrant diverticulitis and continues with nausea with no vomiting. The patient has had no fever or chills. She is passing flatus, but denies any bowel movement in the past 48 hours and has had no hematemesis or melena. PHYSICAL EXAMINATION: GENERAL: At the present time, she is lying in her bed. 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 VITAL SIGNS: Showed a temperature of 98.4, respirations of 20, pulse of 71, and blood pressure of 136/79 with a pulse oximetry of 97% on room air. HEENT: Head is normocephalic and atraumatic. Eyes, no icterus. NECK: Supple. HEART: Regular S1 and S2. No pathological rubs, murmurs, or gallops. LUNGS: Clear to auscultation. ABDOMEN: Obese and nontender. There is no palpable organomegaly. No rebound. No guarding. No tenderness. EXTREMITIES: Show no clubbing, no cyanosis, and no edema. SKIN: Without rash. NEUROLOGICAL: Intact. PSYCHOLOGICAL: Alert and oriented x3. VASCULAR: Legs warm to touch. LABORATORY DATA: Showed her white count of 11,000, hemoglobin of 12.3, hematocrit of 35.6, and platelet count of 317,000. PT/INR was 1.19. Her sodium of 139, potassium of 3.7, chloride of 99, bicarbonate of 30, BUN of 14, and creatinine of 0.6. Random blood sugar was 126. All liver function testing was normal including bilirubin of 1.0, AST of 17, ALT of 21, and alkaline phosphatase of 84. Stool for occult blood was negative. IMPRESSION AND PLAN: This is a 47-year-old female with morbid obesity, now admitted with left lower quadrant diverticulitis with comorbidities of gastritis and nausea, for which the patient received a dose of Reglan 10 mg intravenous push by Dr. Francisco Clemente, gastroenterology and she has been maintained on Protonix 40 mg intravenous daily. She is receiving Cipro 400 mg intravenous q. 12 hours. and Flagyl 500 mg intravenous q. 8 hours. under the direction of Dr. Clif Curiel from infectious disease. She is receiving D5 0.9 saline at 100 mL per hour, heparin 5000 units subcutaneously q. 12 hours., Zofran 4 mg intravenous q. 6 hours as needed nausea and vomiting. She is ordered to have a repeat CT of the abdomen and pelvis with oral contrast for completeness sake to rule out a small bowel obstruction given her persistent nausea. She was instructed on incentive spirometry. She will be continued on the clear liquid diet only. She is wearing anti-embolism stockings and encouraged to ambulate with assistance. The patient did refuse blood work both yesterday and today and I have encouraged her to allow labs to be drawn in the a.m. Hopefully, she will be compliant with this recommendation and all of the above was reviewed in detail with the patient, nurse, and co-consultants. Prognosis is stable at present. Karol Banks MD MTDD
--- NOTE | 2017-06-10 14:55 | CT ---
PROCEDURE: CT Abdomen and Pelvis without intravenous contrast HISTORY: diverticulitis, R/O SBO COMPARISON: CT 06/06/2017 TECHNIQUE: Without contrast. Contrast Dose: Radiation dose: Total exam DLP = 1600 mGy-cm. This CT exam was performed using one or more of the following dose reduction techniques: Automated exposure control, adjustment of the mA and/or kV according to patient size, and/or use of iterative reconstruction technique. FINDINGS: LOWER THORAX: Unremarkable. LIVER: Unremarkable. No gross lesion or ductal dilatation. GALLBLADDER AND BILE DUCTS: Unremarkable. PANCREAS: Unremarkable. No gross lesion or ductal dilatation. SPLEEN: Unremarkable. ADRENALS: Unremarkable. No mass. KIDNEYS AND URETERS: Unremarkable. No hydronephrosis. No solid mass. VASCULATURE: Unremarkable. No aortic aneurysm. BOWEL: There is no evidence of small bowel obstruction. Contrast is seen predominantly in the colon. There is severe narrowing of the lumen of the descending colon at the site of diverticulitis. There is no extravasation of contrast. The mesenteric inflammation and inflammation of adjacent small bowel is unchanged. There is no evidence of an increasing abscess or free air. APPENDIX: Unremarkable. Normal appendix. PERITONEUM: Unremarkable. No free fluid. No free air. LYMPH NODES: Unremarkable. No enlarged lymph nodes. BLADDER: Unremarkable. REPRODUCTIVE: Unremarkable. BONES: No acute fracture. OTHER FINDINGS: None. IMPRESSION: No change in appearance of diverticulitis in the descending colon with adjacent mesenteric inflammation and mural thickening in the small bowel. There is no small bowel obstruction
--- NOTE | 2017-06-10 17:55 | CP.PCM.PN ---
Subjective - Date & Time of Evaluation Date of Evaluation: 06/10/17 Time of Evaluation: 17:00 - Subjective Subjective: Infectious Disease Follow Up: June 10, 2017 47 yo AA female with abdominal pain for 1 month in the left upper and lower quadrant. CT scan showing diverticulitis of the descending colon with possible phlegmon or abscess. On antibiotics and being monitored. Medical issues including morbid obesity. Patient feeling better today with conservative treatment but still having RUQ abdominal pain. The patient had a repeat CT scan done. The CT scan showed increase in the mesenteric inflammation arising from diverticulitis in the descending colon. There is now secondary involvement of adjacent loops of small bowel which shows severe mural thickening and narrowing of the lumen. There is also small amount of extraluminal gas. No evidence of abscess formation. Still with episodes of abdominal pain. Appears to be tolerating diet without any major issues. Slow recovery. Repeat CT scan done again today showing no change. Objective - Vital Signs/Intake and Output Vital Signs (last 24 hours): Temp Pulse Resp BP Pulse Ox 99.3 F 72 20 152/89 H 97 06/10/17 16:10 06/10/17 16:10 06/10/17 16:10 06/10/17 16:10 06/10/17 16:10 Intake and Output: 06/10/17 06/10/17 06:59 18:59 Intake Total 0 Balance 0 - Medications Medications: Current Medications Benzocaine (Orajel Pm Maximum Strength) 0 gm MT QID PRN PRN Reason: Tooth pain Last Admin: 06/09/17 17:34 Dose: 1 applic Heparin Sodium (Porcine) (Heparin) 5,000 units SC Q12 [facility]ARLOS PRN Reason: Protocol Last Admin: 06/10/17 10:28 Dose: 5,000 units Hydromorphone HCl (Dilaudid) 0.5 mg IVP Q3 PRN PRN Reason: Pain, severe (8-10) Last Admin: 06/09/17 17:35 Dose: 0.5 mg Ciprofloxacin (Cipro 400mg/200ml Dsw) 400 mg in 200 mls @ 133.3 mls/hr IVPB Q12 [facility]AR[facility] PRN Reason: Protocol Last Admin: 06/10/17 10:29 Dose: 133.3 mls/hr Dextrose/Sodium Chloride (Dextrose 5%/0.9% Ns 1000 Ml) 1,000 mls @ 100 mls/hr IV .Q10H [facility] Last Admin: 06/10/17 05:08 Dose: 100 mls/hr Metoclopramide HCl (Reglan) 10 mg IVP ACHS [facility] Last Admin: 06/10/17 17:11 Dose: 10 mg Ondansetron HCl (Zofran Inj) 4 mg IVP Q6H PRN PRN Reason: Nausea/Vomiting Last Admin: 06/09/17 10:37 Dose: 4 mg Pantoprazole Sodium (Protonix Inj) 40 mg IVP DAILY [facility] Last Admin: 06/10/17 10:28 Dose: 40 mg Tramadol HCl (Ultram) 50 mg PO Q6H PRN PRN Reason: Pain, moderate (4-7) Last Admin: 06/09/17 08:18 Dose: 50 mg - Labs Labs: 06/07/17 08:40 06/07/17 08:40 PT 12.9 Seconds (9.9-11.8) H 06/07/17 11:50 INR 1.19 (0.93-1.08) H 06/07/17 11:50 APTT 31.5 Seconds (23.7-30.8) H 06/07/17 11:50 - Constitutional Appears: Non-toxic, No Acute Distress, Chronically Ill - Head Exam Head Exam: ATRAUMATIC, NORMOCEPHALIC - Eye Exam Eye Exam: EOMI, PERRL Pupil Exam: NORMAL ACCOMODATION, PERRL - ENT Exam ENT Exam: Mucous Membranes Moist, Normal External Ear Exam, TM's Normal Bilaterally - Neck Exam Neck Exam: Full ROM, Normal Inspection - Respiratory Exam Respiratory Exam: Clear to Ausculation Bilateral, NORMAL BREATHING PATTERN. absent: Rales, Rhonchi, Wheezes - Cardiovascular Exam Cardiovascular Exam: REGULAR RHYTHM, RRR, +S1, +S2 - GI/Abdominal Exam GI & Abdominal Exam: Soft, Normal Bowel Sounds. absent: Distended, Tenderness - Extremities Exam Extremities Exam: Full ROM, Normal Inspection - Neurological Exam Neurological Exam: Alert, Awake, CN II-XII Intact, Oriented x3 - Psychiatric Exam Psychiatric exam: Normal Affect, Normal Mood - Skin Skin Exam: Dry, Warm Assessment and Plan - Assessment and Plan (Free Text) Assessment: 47 yo AA female with diverticulitis with signs of small perforation on CT scan with potential early abscess. No leukocytosis and no fevers. The patient was started on Cipro and Flagyl for antibiotic coverage which is reasonable. On IV fluids and a clear diet currently. Will add Rocephin to regimen as well. Monitor. Appears to be improving. She has periods of RUQ pain. CT scan showing increase in the mesenteric inflammation arising from diverticulitis in the descending colon. There is now secondary involvement of adjacent loops of small bowel which shows severe mural thickening and narrowing of the lumen. There is also small amount of extraluminal gas. No evidence of abscess formation. Conservative treatment being performed. Still with episodes of abdominal pain but improving. Appears to be tolerating diet. Very slow improvement. Thank you for allowing me to participate in the care of the patient, we will follow with you.
[2017-06-10] MEDS: cefTRIAXone 1 gm 1 GM/100 ML BAG IVPB SCH (18:17)
[2017-06-11] MEDS: Dextrose 5%/0.9% NS 1,000 ML IV SCH (05:30)
[2017-06-11 08:56] LABS: HEMATOCRIT 33.4 % (36.0-48.0); MEAN CELL VOLUME 87.2 fl (80.0-105.0); MEAN CORPUSCULAR HEMOGLOBIN 29.8 pg (25.0-35.0); MEAN CORPUSCULAR HGB CONC 34.1 g/dl (31.0-37.0); MEAN PLATELET VOLUME 9.6 fl (7.0-11.0); RED CELL DISTRIBUTION WIDTH 11.9 % (11.5-14.5); WHITE BLOOD COUNT 12.6 10^3/ul (4.5-11.0)
[2017-06-11 08:59] LABS: CALCIUM 8.7 mg/dL (8.4-10.5); CARBON DIOXIDE 28 mmol/L (21-33); CHLORIDE 100 mmol/L (98-107); GFR AFRICAN-AMERICAN > 60; GLUCOSE,RANDOM 124 mg/dL (70-110); SODIUM 137 mmol/L (132-148)
[2017-06-11 09:01] LABS: BLOOD UREA NITROGEN < 2 mg/dL (7-21)
[2017-06-11] MEDS: cefTRIAXone 1 gm 1 GM/100 ML BAG IVPB SCH (09:16)
[2017-06-11] MEDS ORDERED: Piperacillin/Tazobact 3.375 gm 100 ML IVPB SCH (10:00)
[2017-06-11] MEDS ORDERED: Piperacillin/Tazobact 2.25 gm Inj IVPB SCH (10:00)
[2017-06-11] MEDS ORDERED: Potassium Chloride 20 mEq ER Tab PO ONE (11:26)
--- NOTE | 2017-06-11 11:26 | CP.PCM.PN ---
Subjective - Date & Time of Evaluation Date of Evaluation: 06/11/17 Time of Evaluation: 11:23 - Subjective Subjective: Surgery Pt s&e. Pt resting comfortable. Tolerating CLD. c/o mild nausea. No vomiting. Pain controlled. No BM. No flatus. Objective - Vital Signs/Intake and Output Vital Signs (last 24 hours): Temp Pulse Resp BP Pulse Ox 98.7 F 84 20 140/70 100 06/11/17 06:00 06/11/17 06:00 06/11/17 06:00 06/11/17 06:00 06/11/17 06:00 Intake and Output: 06/11/17 06/11/17 06:59 18:59 Intake Total 1160 180 Balance 1160 180 - Medications Medications: Current Medications Benzocaine (Orajel Pm Maximum Strength) 0 gm MT QID PRN PRN Reason: Tooth pain Last Admin: 06/09/17 17:34 Dose: 1 applic Docusate Sodium (Colace) 100 mg PO DAILY [facility] Heparin Sodium (Porcine) (Heparin) 5,000 units SC Q12 JEANCARLOS PRN Reason: Protocol Last Admin: 06/11/17 09:13 Dose: 5,000 units Hydromorphone HCl (Dilaudid) 0.5 mg IVP Q3 PRN PRN Reason: Pain, severe (8-10) Last Admin: 06/09/17 17:35 Dose: 0.5 mg Dextrose/Sodium Chloride (Dextrose 5%/0.9% Ns 1000 Ml) 1,000 mls @ 100 mls/hr IV .Q10H [facility] Last Admin: 06/11/17 05:30 Dose: 100 mls/hr Ceftriaxone Sodium (Rocephin 1 Gram Ivpb) 1 gm in 100 mls @ 100 mls/hr IVPB DAILY [facility] PRN Reason: Protocol Last Admin: 06/11/17 09:16 Dose: 100 mls/hr Metoclopramide HCl (Reglan) 10 mg IVP ACHS [facility] Last Admin: 06/11/17 09:16 Dose: Not Given Ondansetron HCl (Zofran Inj) 4 mg IVP Q6H PRN PRN Reason: Nausea/Vomiting Last Admin: 06/11/17 09:16 Dose: 4 mg Pantoprazole Sodium (Protonix Inj) 40 mg IVP DAILY [facility] Last Admin: 06/11/17 09:14 Dose: 40 mg Piperacillin Sod/Tazobactam Sod (Zosyn) 3.75 gm IVPB Q12 [facility]ARLOS PRN Reason: Protocol Last Admin: 06/11/17 11:20 Dose: Not Given Potassium Chloride (K-Dur 20 Meq Er Tab) 40 meq PO BID [facility]ARL[facility] Tramadol HCl (Ultram) 50 mg PO Q6H PRN PRN Reason: Pain, moderate (4-7) Last Admin: 06/09/17 08:18 Dose: 50 mg - Labs Labs: 06/11/17 07:30 06/11/17 07:30 PT 12.9 Seconds (9.9-11.8) H 06/07/17 11:50 INR 1.19 (0.93-1.08) H 06/07/17 11:50 APTT 31.5 Seconds (23.7-30.8) H 06/07/17 11:50 - Constitutional Appears: No Acute Distress - Head Exam Head Exam: ATRAUMATIC, NORMAL INSPECTION, NORMOCEPHALIC - Eye Exam Eye Exam: EOMI, Normal appearance, PERRL Pupil Exam: NORMAL ACCOMODATION, PERRL - ENT Exam ENT Exam: Mucous Membranes Moist, Normal Exam - Neck Exam Neck Exam: Full ROM, Normal Inspection. absent: Lymphadenopathy - Respiratory Exam Respiratory Exam: Clear to Ausculation Bilateral, NORMAL BREATHING PATTERN - Cardiovascular Exam Cardiovascular Exam: REGULAR RHYTHM, +S1, +S2. absent: Murmur - GI/Abdominal Exam GI & Abdominal Exam: Soft, Normal Bowel Sounds. absent: Tenderness - Extremities Exam Extremities Exam: Full ROM, Normal Capillary Refill, Normal Inspection. absent : Joint Swelling, Pedal Edema - Back Exam Back Exam: NORMAL INSPECTION - Neurological Exam Neurological Exam: Alert, Awake, CN II-XII Intact, Oriented x3 - Psychiatric Exam Psychiatric exam: Normal Affect, Normal Mood - Skin Skin Exam: Dry, Intact, Normal Color, Warm Assessment and Plan - Assessment and Plan (Free Text) Assessment: diverticulitis Repeat CT: unchanged sigmoid diverticulitis -ABX -CLD advance diet as tolerated. -Monitor bowel function WIll DW Dr. brandt
[2017-06-11] MEDS: Piperacillin/Tazobact 3.375 gm 100 ML IVPB SCH ×2 (16:00→17:35)
--- NOTE | 2017-06-11 16:06 | CP.PCM.PN ---
Subjective - Date & Time of Evaluation Date of Evaluation: 06/11/17 Time of Evaluation: 15:00 - Subjective Subjective: Infectious Disease Follow Up: June 11, 2017 47 yo AA female with abdominal pain for 1 month in the left upper and lower quadrant. CT scan showing diverticulitis of the descending colon with possible phlegmon or abscess. On antibiotics and being monitored. Medical issues including morbid obesity. Patient feeling better today with conservative treatment but still having RUQ abdominal pain. The patient had a repeat CT scan done. The CT scan showed increase in the mesenteric inflammation arising from diverticulitis in the descending colon. There is now secondary involvement of adjacent loops of small bowel which shows severe mural thickening and narrowing of the lumen. There is also small amount of extraluminal gas. No evidence of abscess formation. Still with episodes of abdominal pain. Appears to be tolerating diet without any major issues. Slow recovery. Repeat CT scan done again today showing no change in diverticulitis. Objective - Vital Signs/Intake and Output Vital Signs (last 24 hours): Temp Pulse Resp BP Pulse Ox 98.7 F 84 20 140/70 100 06/11/17 06:00 06/11/17 06:00 06/11/17 06:00 06/11/17 06:00 06/11/17 06:00 Intake and Output: 06/11/17 06/11/17 06:59 18:59 Intake Total 1160 180 Balance 1160 180 - Medications Medications: Current Medications Benzocaine (Orajel Pm Maximum Strength) 0 gm MT QID PRN PRN Reason: Tooth pain Last Admin: 06/09/17 17:34 Dose: 1 applic Docusate Sodium (Colace) 100 mg PO DAILY [facility] Last Admin: 06/11/17 12:16 Dose: 100 mg Heparin Sodium (Porcine) (Heparin) 5,000 units SC Q12 [facility]ANCARLOS PRN Reason: Protocol Last Admin: 06/11/17 09:13 Dose: 5,000 units Hydromorphone HCl (Dilaudid) 0.5 mg IVP Q3 PRN PRN Reason: Pain, severe (8-10) Last Admin: 06/09/17 17:35 Dose: 0.5 mg Dextrose/Sodium Chloride (Dextrose 5%/0.9% Ns 1000 Ml) 1,000 mls @ 100 mls/hr IV .Q10H [facility] Last Admin: 06/11/17 05:30 Dose: 100 mls/hr Piperacillin Sod/Tazobactam Sod (Zosyn 3.375 In Ns 100ml) 100 mls @ 200 mls/hr IVPB Q6 [facility]ARL[facility] PRN Reason: Protocol Stop: 06/16/17 00:00 Metoclopramide HCl (Reglan) 10 mg IVP ACHS PRN PRN Reason: Nausea/Vomiting Ondansetron HCl (Zofran Inj) 4 mg IVP Q6H PRN PRN Reason: Nausea/Vomiting Last Admin: 06/11/17 09:16 Dose: 4 mg Pantoprazole Sodium (Protonix Inj) 40 mg IVP DAILY [facility] Last Admin: 06/11/17 09:14 Dose: 40 mg Potassium Chloride (K-Dur 20 Meq Er Tab) 40 meq PO BID [facility] Tramadol HCl (Ultram) 50 mg PO Q6H PRN PRN Reason: Pain, moderate (4-7) Last Admin: 06/09/17 08:18 Dose: 50 mg - Labs Labs: 06/11/17 07:30 06/11/17 07:30 PT 12.9 Seconds (9.9-11.8) H 06/07/17 11:50 INR 1.19 (0.93-1.08) H 06/07/17 11:50 APTT 31.5 Seconds (23.7-30.8) H 06/07/17 11:50 - Constitutional Appears: Non-toxic, No Acute Distress, Chronically Ill - Head Exam Head Exam: ATRAUMATIC, NORMOCEPHALIC - Eye Exam Eye Exam: EOMI, PERRL Pupil Exam: NORMAL ACCOMODATION, PERRL - ENT Exam ENT Exam: Mucous Membranes Moist, Normal External Ear Exam, TM's Normal Bilaterally - Neck Exam Neck Exam: Full ROM, Normal Inspection - Respiratory Exam Respiratory Exam: Clear to Ausculation Bilateral, NORMAL BREATHING PATTERN. absent: Rales, Rhonchi, Wheezes - Cardiovascular Exam Cardiovascular Exam: REGULAR RHYTHM, RRR, +S1, +S2 - GI/Abdominal Exam GI & Abdominal Exam: Soft, Tenderness, Normal Bowel Sounds. absent: Distended - Extremities Exam Extremities Exam: Full ROM, Normal Inspection - Neurological Exam Neurological Exam: Alert, Awake, CN II-XII Intact, Oriented x3 - Psychiatric Exam Psychiatric exam: Normal Affect, Normal Mood - Skin Skin Exam: Intact, Normal Color Assessment and Plan - Assessment and Plan (Free Text) Assessment: 47 yo AA female with diverticulitis with signs of small perforation on CT scan with potential early abscess. No leukocytosis and no fevers. The patient was started on Cipro and Flagyl for antibiotic coverage which is reasonable. On IV fluids and a clear diet currently. Will add Rocephin to regimen as well. Monitor. Appears to be improving. She has periods of RUQ pain. CT scan showing increase in the mesenteric inflammation arising from diverticulitis in the descending colon. There is now secondary involvement of adjacent loops of small bowel which shows severe mural thickening and narrowing of the lumen. There is also small amount of extraluminal gas. No evidence of abscess formation. Conservative treatment being performed. Still with episodes of abdominal pain but improving. Appears to be tolerating diet. Very slow improvement. Repeat CT scans continue to show no change in the current diverticulitis. The patient had Cipro and Flagyl stopped by surgery today and started on Zosyn while keeping Rocephin. Readjusted Zosyn to the proper dose and stopped Rocephin as there is significant overlap between the two antibiotics. Rocephin, Cipro, and Flagyl would have the same coverage as Zosyn. Zosyn advantage is that it is a single drug however there is no single drug oral equivalent. Thank you for allowing me to participate in the care of the patient, we will follow with you.
[2017-06-11] MEDS: Potassium Chloride 20 mEq ER Tab PO SCH (17:35)
--- NOTE | 2017-06-11 17:35 | PN ---
SUBJECTIVE: This is a 47-year-old female who was examined at her bedside and her case was reviewed in detail with her nurse, Deonte Kelley, registered nurse and her sister, Mary. The patient remains hospitalized with left lower quadrant diverticulitis and persistent nausea and today hypokalemia. 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 She is followed daily by surgery, infectious disease and gastroenterology and is on a clear liquid diet to date. PHYSICAL EXAMINATION: GENERAL: Her monitor shows normal sinus rhythm. VITAL SIGNS: Temperature of 98.7, respirations of 20, pulse of 84, and blood pressure of 140/70 with a pulse ox of 100% on room air. HEENT: Head is normocephalic and atraumatic. Eyes, no icterus. NECK: Supple. HEART: Regular S1 and S2. LUNGS: Clear to auscultation. ABDOMEN: Obese, nontender without palpable organomegaly. There is no rebound. No guarding. No tenderness. EXTREMITIES: No clubbing, no cyanosis, no edema. SKIN: Without rash. NEUROLOGICAL: Intact. PSYCHOLOGICAL: Alert and oriented x3. VASCULAR: Legs warm to touch. LABORATORY DATA: CBC: white count of 12,600, hemoglobin of 11.4, hematocrit of 33.4, and platelets 305,000. Sodium of 137, potassium of 3.0, chloride of 100, bicarb 28, BUN 2, and creatinine of 0.6. Random blood sugar is 124. All liver function testing was normal including bilirubin of 1.0, AST of 17, ALT of 21, and alk phos of 84. Stool for occult blood negative. Urine culture no growth. Blood culture no growth at 5 days. IMPRESSION: This is a 47-year-old female with morbid obesity, left colon diverticulitis, now with hypokalemia and leukocytosis as well as gastroparesis and her latest CT of the abdomen and pelvis performed on Sunday 06/10 with oral contrast showing no evidence of small bowel obstruction, although severe narrowing was noted in the lumen of the descending colon at the side of the diverticulitis. There was no extravasation of contrast. The mesenteric inflammation and inflammation of adjacent small bowel was unchanged, but there was no evidence of an increasing abscess or free air. All the above have been discussed with Dr. Curiel from infectious disease and Dr. Clemente from GI and Dr. João Calvillo from surgery. PLAN: The plan at present is to maintain the patient on clear liquid diet only. She is ordered to receive D5 0.9 saline at 100 mL per hour, Colace 100 mg p.o. daily, heparin 5000 units subcu q.12 potassium chloride replacement, Protonix 40 mg IV daily, Reglan 10 mg IV, has been adjusted to a.c. meals at bedtime p.r.n. and nausea and vomiting not relieved by Zofran 4 mg IV q.6 hours p.r.n. nausea and vomiting. She is on incentive spirometry q.1 hour. I have asked Dr. Curiel to readjust antibiotics accordingly. She remains on clear liquid, anti-embolism stockings and has been ordered to ambulate with an assistant baseball coach. She will have a repeat CBC and potassium level in the morning and possible surgery may be indicated if this infection cannot resolve with conservative measures. All this was discussed in detail with the patient, family, nursing and co-solutions delivery consultant, and greater than sixty minutes were spent in the management of this patient today. Karol Banks MD MTDD
[2017-06-11] MEDS: Potassium Chloride 40 MEQ in Dextrose 5%/0.9% NS 1,000 ML IV SCH (17:40)
--- NOTE | 2017-06-11 18:36 | PN ---
DATE: 06/11/2017 This visit is for Dr. Jimenez, who I am covering. SUBJECTIVE: The patient is sitting in chair. She feels much better without any further regurgitation reflux or epigastric discomfort. She denies any mid or lower abdominal pain. She still has some mild nausea. PHYSICAL EXAMINATION: VITAL SIGNS: Reveal temperature of 98.7, blood pressure 140/70, heart rate is 84. HEENT: Reveal sclerae to be white. Conjunctivae pink. NECK: Supple. CHEST: Reveal lungs to be clear. HEART: Reveals a regular rate and rhythm. ABDOMEN: Soft, mild left mid abdominal tenderness. No rebound, no guarding. No palpable mass. Her abdomen is obese. EXTREMITIES: Show no edema. LABORATORY DATA: Reveal potassium of 3. Electrolytes were otherwise normal. CBC reveals white blood cell count 12.6, hemoglobin 11.4. Repeat CT scan the abdomen and pelvis performed yesterday shows persistent mesenteric inflammation around the descending colon as well as mural thickening and luminal narrowing of the descending colon. There is also persistent mural thickening of the adjacent small bowel. There is no evidence of a small bowel obstruction. IMPRESSION: A 47-year-old female admitted to the hospital with left-sided abdominal pain and found to have severe diverticulitis involving the descending colon with micro perforation, no abscess and most recently with some mural thickening of the adjacent small bowel. Her regurgitation and reflux has improved. She is currently on Zosyn 3.75 g twice a day. RECOMMENDATIONS: 1. We will advance to a low residue diet. 2. Continue PPI and Reglan 10 mg IV a.c. and bedtime. 3. Continue close followup. 4. The patient will need colonoscopy once her diverticulitis has clinically resolved. Francisco Clemente MD
[2017-06-12] MEDS: Piperacillin/Tazobact 3.375 gm 100 ML IVPB SCH ×5 (00:55→23:13)
[2017-06-12 06:18] LABS: HEMATOCRIT 34.1 % (36.0-48.0); MEAN CELL VOLUME 88.1 fl (80.0-105.0); MEAN CORPUSCULAR HEMOGLOBIN 29.2 pg (25.0-35.0); MEAN CORPUSCULAR HGB CONC 33.1 g/dl (31.0-37.0); MEAN PLATELET VOLUME 9.8 fl (7.0-11.0); RED CELL DISTRIBUTION WIDTH 12.2 % (11.5-14.5); WHITE BLOOD COUNT 9.9 10^3/ul (4.5-11.0)
--- NOTE | 2017-06-12 07:40 | CP.PCM.PN ---
Subjective - Date & Time of Evaluation Date of Evaluation: 06/12/17 Time of Evaluation: 07:38 - Subjective Subjective: General Surgery progress note for Dr. Calvillo PT S&E at bedside. SILVER. Patient states she tolerates her diet, admits to left flank pain which is better than yesterday. Objective - Vital Signs/Intake and Output Vital Signs (last 24 hours): Temp Pulse Resp BP Pulse Ox 98.7 F 84 20 140/70 100 06/11/17 06:00 06/11/17 06:00 06/11/17 06:00 06/11/17 06:00 06/11/17 06:00 Intake and Output: 06/12/17 06/12/17 06:59 18:59 Intake Total 1320 Output Total 0 Balance 1320 - Medications Medications: Current Medications Benzocaine (Orajel Pm Maximum Strength) 0 gm MT QID PRN PRN Reason: Tooth pain Last Admin: 06/09/17 17:34 Dose: 1 applic Docusate Sodium (Colace) 100 mg PO DAILY [facility] Last Admin: 06/11/17 12:16 Dose: 100 mg Heparin Sodium (Porcine) (Heparin) 5,000 units SC Q12 JEANCARLOS PRN Reason: Protocol Last Admin: 06/11/17 21:44 Dose: 5,000 units Piperacillin Sod/Tazobactam Sod (Zosyn 3.375 In Ns 100ml) 100 mls @ 200 mls/hr IVPB Q6 JEANCARLOS PRN Reason: Protocol Stop: 06/16/17 00:00 Last Admin: 06/12/17 05:28 Dose: 200 mls/hr Potassium Chloride 40 meq/ (Dextrose/Sodium Chloride) 1,020 mls @ 100 mls/hr IV .[id number] [facility] Last Admin: 06/11/17 17:40 Dose: 100 mls/hr Metoclopramide HCl (Reglan) 10 mg IVP ACHS PRN PRN Reason: Nausea/Vomiting Ondansetron HCl (Zofran Inj) 4 mg IVP Q6H PRN PRN Reason: Nausea/Vomiting Last Admin: 06/11/17 09:16 Dose: 4 mg Pantoprazole Sodium (Protonix Inj) 40 mg IVP DAILY [facility] Last Admin: 06/11/17 09:14 Dose: 40 mg Potassium Chloride (K-Dur 20 Meq Er Tab) 40 meq PO BID [facility]ANCARLOS Last Admin: 06/11/17 17:35 Dose: Not Given Tramadol HCl (Ultram) 50 mg PO Q6H PRN PRN Reason: Pain, moderate (4-7) Last Admin: 06/09/17 08:18 Dose: 50 mg - Labs Labs: 06/12/17 06:00 06/12/17 06:00 PT 12.9 Seconds (9.9-11.8) H 06/07/17 11:50 INR 1.19 (0.93-1.08) H 06/07/17 11:50 APTT 31.5 Seconds (23.7-30.8) H 06/07/17 11:50 - Constitutional Appears: Non-toxic, No Acute Distress - Head Exam Head Exam: NORMAL INSPECTION - Eye Exam Eye Exam: EOMI, Normal appearance - ENT Exam ENT Exam: Mucous Membranes Moist - Neck Exam Neck Exam: Full ROM - Respiratory Exam Respiratory Exam: Clear to Ausculation Bilateral, NORMAL BREATHING PATTERN. absent: Accessory Muscle Use, Respiratory Distress - Cardiovascular Exam Cardiovascular Exam: REGULAR RHYTHM. absent: Bradycardia, Tachycardia - GI/Abdominal Exam GI & Abdominal Exam: Soft, Tenderness, Normal Bowel Sounds. absent: Hypoactive Bowel Sounds, Rebound - Extremities Exam Extremities Exam: Full ROM, Normal Inspection - Back Exam Back Exam: Full ROM, NORMAL INSPECTION - Neurological Exam Neurological Exam: Alert, Awake, Oriented x3 - Psychiatric Exam Psychiatric exam: Normal Affect, Normal Mood - Skin Skin Exam: Dry, Intact, Normal Color, Warm Assessment and Plan - Assessment and Plan (Free Text) Assessment: Diverticulitis Plan: c/w ABX Diet: CLD, advance diet as tolerated. Monitor bowel function discussed with Dr. Calvillo
[2017-06-12] MEDS: Potassium Chloride 20 mEq ER Tab PO SCH ×2 (09:15→17:38)
[2017-06-12] MEDS: Potassium Chloride 40 MEQ in Dextrose 5%/0.9% NS 1,000 ML IV SCH (09:16)
--- NOTE | 2017-06-12 13:52 | PN ---
DATE: 06/12/2017 SUBJECTIVE: This 47-year-old female who was examined at her bedside. The case was reviewed in detail with her herself, nursing and Dr. Francisco Clemente from gastroenterology. The patient states she had a small soft brown bowel movement and denies any further hematemesis or melena. She states that she has had no further nausea or vomiting and is aware of the possible need for surgical intervention of her severe diverticulitis. PHYSICAL EXAMINATION: GENERAL: special education tutor shows a normal sinus rhythm. VITAL SIGNS: Temperature is 99.6, respirations of 20, pulse of 78, and blood pressure of 152/81 with a pulse ox of 100% on room air. HEENT: Head is normocephalic and atraumatic. Eyes, no icterus. NECK: Supple. HEART: Regular S1 and S2. LUNGS: Clear. ABDOMEN: Obese, nontender. No palpable organomegaly. No rebound. No guarding. No tenderness. EXTREMITIES: No clubbing, no cyanosis, no edema. SKIN: Without rash. NEUROLOGICAL: Intact. PSYCHOLOGICAL: Alert. VASCULAR: Legs warm to touch. LABORATORY DATA: White count of 9900, hemoglobin of 11.3, hematocrit of 34.1, and platelets 307,000. Sodium of 137, potassium 3.4, chloride of 100, bicarb 28, BUN 2, and creatinine of 0.5. Random blood sugar was 124 and all liver function testing was normal including bilirubin of 1.0, AST of 17, ALT is 21, and alk phos of 84. Urine culture shows no growth and blood culture no growth at 5 days. IMPRESSION: This is a 47-year-old female with severe diverticulitis, morbid obesity, hypokalemia and gastroesophageal reflux disease with reflux. PLAN: At present is to continue Colace 100 mg p.o. daily, she continues on D5 0.9 saline with 40 mEq potassium per L at 100 mL per hour, heparin 5000 units subcu q. 12, Protonix 40 mg IV daily and Zofran 4 mg IV q. 6 hours p.r.n. nausea, vomiting. She is receiving Zosyn 3.375 g IV q. 6 hours under the direction of Dr. Clif Curiel from infectious disease. She has been instructed on use of incentive spirometry. She has been wearing anti-embolism SCD stockings. She has been ordered to have physical therapy for ambulation safety and the patient will have a repeat potassium level in the a.m. Although, her diet has been advanced by Dr. Francisco Clemente from gastroenterology the patient remains reluctant to eat given the severity of her diverticulitis and previous nausea and vomiting. She is ordered to have Ensure clear supplement q.i.d. and we will await GI reevaluation along with surgery to decide whether or not she may need surgical intervention of her severe diverticulitis. Prognosis remains stable at present . Karol Banks MD [facility] # [id number] MTDD
--- NOTE | 2017-06-12 14:43 | PN ---
DATE: 06/12/2017 SUBJECTIVE: The patient is lying in bed. She is still complaining of some left-sided abdominal pain. PHYSICAL EXAMINATION VITAL SIGNS: Reveal temperature of 99.6, blood pressure of 152/81, and heart rate of 78. HEENT: Reveals sclerae to be white. Conjunctivae are pink. NECK: Supple. CHEST: Reveal lungs to be clear. HEART: Exam reveals regular rate and rhythm. GASTROINTESTINAL: Abdomen is obese, soft. There is mild to moderate left mid abdominal tenderness with some voluntary guarding. No rebound. EXTREMITIES: Show no edema. LABORATORY DATA: Reveals hemoglobin of 11.3 and white blood cell count of 9.9. Chemistries reveal no new data. IMPRESSION: A 47-year-old female admitted to the hospital with left-sided abdominal pain found to have diverticulitis involving the descending colon with micro perforation. She continues to be symptomatic with some pain. She has had three CAT scans most recently 2 days ago which she continues to show mural thickening and pericolonic inflammation as well as some mural thickening of the adjacent small bowel. RECOMMENDATIONS: 1. Continue IV antibiotics. She is not taking much of solid foods. She may need surgery for left colon resection and possible diverting colostomy with a two-stage procedure. Francisco Clemente MD
--- NOTE | 2017-06-12 17:22 | CP.PCM.PN ---
Subjective - Date & Time of Evaluation Date of Evaluation: 06/12/17 Time of Evaluation: 16:00 - Subjective Subjective: Infectious Disease Follow Up: June 12, 2017 47 yo AA female with abdominal pain for 1 month in the left upper and lower quadrant. CT scan showing diverticulitis of the descending colon with possible phlegmon or abscess. On antibiotics and being monitored. Medical issues including morbid obesity. Patient feeling better today with conservative treatment but still having RUQ abdominal pain. The patient had a repeat CT scan done. The CT scan showed increase in the mesenteric inflammation arising from diverticulitis in the descending colon. There is now secondary involvement of adjacent loops of small bowel which shows severe mural thickening and narrowing of the lumen. There is also small amount of extraluminal gas. No evidence of abscess formation. Still with episodes of abdominal pain. Appears to be tolerating liquid diet without any major issues but she remains hesitant to intake anything solid at this time. Very slow recovery. Last CT scan done showing no change in diverticulitis from admission. Objective - Vital Signs/Intake and Output Vital Signs (last 24 hours): Temp Pulse Resp BP Pulse Ox 99.6 F 78 20 152/81 H 94 L 06/12/17 06:00 06/12/17 06:00 06/12/17 06:00 06/12/17 06:00 06/12/17 06:00 Intake and Output: 06/12/17 06/12/17 06:59 18:59 Intake Total 1320 Output Total 0 Balance 1320 - Medications Medications: Current Medications Benzocaine (Orajel Pm Maximum Strength) 0 gm MT QID PRN PRN Reason: Tooth pain Last Admin: 06/09/17 17:34 Dose: 1 applic Docusate Sodium (Colace) 100 mg PO DAILY [facility] Last Admin: 06/12/17 09:15 Dose: 100 mg Heparin Sodium (Porcine) (Heparin) 5,000 units SC Q12 JEANCARLOS PRN Reason: Protocol Last Admin: 06/12/17 09:14 Dose: 5,000 units Piperacillin Sod/Tazobactam Sod (Zosyn 3.375 In Ns 100ml) 100 mls @ 200 mls/hr IVPB Q6 JEANCARLOS PRN Reason: Protocol Stop: 06/16/17 00:00 Last Admin: 06/12/17 13:25 Dose: 200 mls/hr Potassium Chloride 40 meq/ (Dextrose/Sodium Chloride) 1,020 mls @ 100 mls/hr IV .[id number] [facility] Last Admin: 06/12/17 09:16 Dose: 100 mls/hr Metoclopramide HCl (Reglan) 10 mg IVP ACHS PRN PRN Reason: Nausea/Vomiting Ondansetron HCl (Zofran Inj) 4 mg IVP Q6H PRN PRN Reason: Nausea/Vomiting Last Admin: 06/11/17 09:16 Dose: 4 mg Pantoprazole Sodium (Protonix Inj) 40 mg IVP DAILY [facility] Last Admin: 06/12/17 09:16 Dose: 40 mg Potassium Chloride (K-Dur 20 Meq Er Tab) 40 meq PO BID [facility] Last Admin: 06/12/17 09:15 Dose: 40 meq Tramadol HCl (Ultram) 50 mg PO Q6H PRN PRN Reason: Pain, moderate (4-7) Last Admin: 06/12/17 14:59 Dose: 50 mg - Labs Labs: 06/12/17 06:00 06/12/17 06:00 PT 12.9 Seconds (9.9-11.8) H 06/07/17 11:50 INR 1.19 (0.93-1.08) H 06/07/17 11:50 APTT 31.5 Seconds (23.7-30.8) H 06/07/17 11:50 - Constitutional Appears: Non-toxic, No Acute Distress, Chronically Ill - Head Exam Head Exam: ATRAUMATIC, NORMOCEPHALIC - Eye Exam Eye Exam: EOMI, PERRL Pupil Exam: NORMAL ACCOMODATION, PERRL - ENT Exam ENT Exam: Mucous Membranes Moist, Normal External Ear Exam, TM's Normal Bilaterally - Neck Exam Neck Exam: Full ROM, Normal Inspection - Respiratory Exam Respiratory Exam: Clear to Ausculation Bilateral, NORMAL BREATHING PATTERN. absent: Rales, Rhonchi, Wheezes - Cardiovascular Exam Cardiovascular Exam: REGULAR RHYTHM, RRR, +S1, +S2 - GI/Abdominal Exam GI & Abdominal Exam: Soft, Tenderness, Normal Bowel Sounds. absent: Distended - Extremities Exam Extremities Exam: Full ROM, Normal Inspection - Neurological Exam Neurological Exam: Alert, Awake, CN II-XII Intact, Oriented x3 - Psychiatric Exam Psychiatric exam: Normal Affect, Normal Mood - Skin Skin Exam: Intact, Normal Color Assessment and Plan - Assessment and Plan (Free Text) Assessment: 47 yo AA female with diverticulitis with signs of small perforation on CT scan with potential early abscess. No leukocytosis and no fevers. The patient was started on Cipro and Flagyl for antibiotic coverage which is reasonable. On IV fluids and a clear diet currently. Was on Cipro and Flagyl and received one dose of Rocephin... now on Zosyn for antibiotic coverage. Monitor. Stable. She has periods of RUQ pain. CT scan showing increase in the mesenteric inflammation arising from diverticulitis in the descending colon. There is now secondary involvement of adjacent loops of small bowel which shows severe mural thickening and narrowing of the lumen. There is also small amount of extraluminal gas. No evidence of abscess formation. Conservative treatment being performed. Still with episodes of abdominal pain but improving. Appears to be tolerating diet. Very slow improvement. Repeat CT scans continue to show no change in the current diverticulitis. The patient had Cipro and Flagyl stopped by surgery today and started on Zosyn while keeping Rocephin. Readjusted Zosyn to the proper dose and stopped Rocephin as there is significant overlap between the two antibiotics. Rocephin, Cipro, and Flagyl would have the same coverage as Zosyn. Zosyn advantage is that it is a single drug however there is no single drug oral equivalent. Concerns of whether the patient will need surgery/resection of bowel given the extremely slow rate of improvement. Thank you for allowing me to participate in the care of the patient, we will follow with you.
[2017-06-13] MEDS: Potassium Chloride 40 MEQ in Dextrose 5%/0.9% NS 1,000 ML IV SCH ×2 (01:00→10:24)
[2017-06-13] MEDS: Piperacillin/Tazobact 3.375 gm 100 ML IVPB SCH ×3 (05:14→18:34)
--- NOTE | 2017-06-13 06:42 | CP.PCM.PN ---
Subjective - Date & Time of Evaluation Date of Evaluation: 06/13/17 Time of Evaluation: 06:40 - Subjective Subjective: SURGERY NOTE FOR DR. GO 47F seen and examined at bedside. SILVER. Patient denies pain, nausea, vomiting, or bloody bowel movements. Objective - Vital Signs/Intake and Output Vital Signs (last 24 hours): Temp Pulse Resp BP Pulse Ox 99.6 F 78 20 152/81 H 94 L 06/12/17 06:00 06/12/17 06:00 06/12/17 06:00 06/12/17 06:00 06/12/17 06:00 Intake and Output: 06/12/17 06/13/17 18:59 06:59 Intake Total 1560 Output Total 3 Balance 1557 - Medications Medications: Current Medications Benzocaine (Orajel Pm Maximum Strength) 0 gm MT QID PRN PRN Reason: Tooth pain Last Admin: 06/09/17 17:34 Dose: 1 applic Docusate Sodium (Colace) 100 mg PO DAILY [facility] Last Admin: 06/12/17 09:15 Dose: 100 mg Heparin Sodium (Porcine) (Heparin) 5,000 units SC Q12 JEANCARLOS PRN Reason: Protocol Last Admin: 06/12/17 21:09 Dose: 5,000 units Piperacillin Sod/Tazobactam Sod (Zosyn 3.375 In Ns 100ml) 100 mls @ 200 mls/hr IVPB Q6 JEANCARLOS PRN Reason: Protocol Stop: 06/16/17 00:00 Last Admin: 06/13/17 05:14 Dose: 200 mls/hr Potassium Chloride 40 meq/ (Dextrose/Sodium Chloride) 1,020 mls @ 100 mls/hr IV .[id number] [facility] Last Admin: 06/13/17 01:00 Dose: 100 mls/hr Metoclopramide HCl (Reglan) 10 mg IVP ACHS PRN PRN Reason: Nausea/Vomiting Ondansetron HCl (Zofran Inj) 4 mg IVP Q6H PRN PRN Reason: Nausea/Vomiting Last Admin: 06/11/17 09:16 Dose: 4 mg Pantoprazole Sodium (Protonix Inj) 40 mg IVP DAILY [facility] Last Admin: 06/12/17 09:16 Dose: 40 mg Potassium Chloride (K-Dur 20 Meq Er Tab) 40 meq PO BID [facility] Last Admin: 06/12/17 17:38 Dose: 40 meq Tramadol HCl (Ultram) 50 mg PO Q6H PRN PRN Reason: Pain, moderate (4-7) Last Admin: 06/12/17 14:59 Dose: 50 mg - Labs Labs: 06/12/17 06:00 06/12/17 06:00 PT 12.9 Seconds (9.9-11.8) H 06/07/17 11:50 INR 1.19 (0.93-1.08) H 06/07/17 11:50 APTT 31.5 Seconds (23.7-30.8) H 06/07/17 11:50 - Constitutional Appears: Non-toxic, No Acute Distress, Other (out of bed) - Respiratory Exam Respiratory Exam: Clear to Ausculation Bilateral, NORMAL BREATHING PATTERN - Cardiovascular Exam Cardiovascular Exam: REGULAR RHYTHM, +S1, +S2 - GI/Abdominal Exam GI & Abdominal Exam: Soft. absent: Distended, Firm, Guarding, Rigid, Tenderness , Rebound - Neurological Exam Neurological Exam: Alert, Awake Assessment and Plan - Assessment and Plan (Free Text) Assessment: 47F with diverticulitis, resolving Plan: - ADAT - no surgical intervention at this time Further recs discuss with Dr. Rajinder Calixto, PGY2
[2017-06-13] MEDS: Potassium Chloride 20 mEq ER Tab PO SCH (10:23)
--- NOTE | 2017-06-13 13:20 | PN ---
DATE: 06/13/2017 SUBJECTIVE: This 47-year-old female remains hospitalized on IV Zosyn for left descending colon diverticulitis. The patient is being followed daily by surgery, infectious disease, and gastroenterology. The patient had a small formed brown bowel movement yesterday and denies any hematemesis or melena. She denies fever, chills, chest pain or shortness of breath and is awaiting gastrointestinal reevaluation with Dr. Jimenez regarding the plan of action for persistent severe diverticulitis. PHYSICAL EXAMINATION: VITAL SIGNS: Temperature 98.9, respirations 20, pulse 77, and blood pressure 157/86 with pulse ox of 94% on room air. HEENT: Head is normocephalic, atraumatic. Eyes; no icterus. NECK: Supple. HEART: Regular S1 and S2. LUNGS: Clear. ABDOMEN: Obese, nontender without palpable organomegaly. No rebound. No guarding. No tenderness. EXTREMITIES: No clubbing, no cyanosis, no edema. SKIN: Without rash. NEUROLOGIC: Unchanged. PSYCHOLOGIC: Alert. VASCULAR: Legs are warm to touch. LABORATORY DATA: White count 9900, hemoglobin 11.3, hematocrit 34.1, and platelets 307,000. Sodium 137, potassium 3.6, chloride 100, bicarbonate 28. BUN 2, creatinine 0.5. Random blood sugar 124. Blood in urine cultures remain negative. IMPRESSION: A 47-year-old female with descending colon, diverticulitis, morbid obesity and CT showing luminal narrowing of the descending colon in the setting of diverticulitis. PLAN: Continue Zosyn 3.375 mg IV q. 6 h, Colace 100 mg p.o. daily, D5 0.9 saline at 100 mL per hour, heparin 5000 units subcutaneous q. 12, Protonix 40 mg IV daily, Zofran 4 mg IV q. 6 hours p.r.n. nausea, vomiting. Patient is instructed on incentive spirometry. She has been advanced to a low fiber diet by Dr. Clemente from gastroenterology. She is awaiting reevaluation by Dr. Jimenez from GI who will need to determine further therapy the medical versus surgical intervention for this patient. She is advised to wear anti-embolism stockings, ambulate with assistance and all the above were discussed in detail with the patient. All questions were answered. Karol Banks MD [facility] # [id number] MARILUZ
--- NOTE | 2017-06-13 17:45 | CP.PCM.PN ---
Subjective - Date & Time of Evaluation Date of Evaluation: 06/13/17 Time of Evaluation: 16:40 - Subjective Subjective: Infectious Disease Follow Up: June 13, 2017 47 yo AA female with abdominal pain for 1 month in the left upper and lower quadrant. CT scan showing diverticulitis of the descending colon with possible phlegmon or abscess. On antibiotics and being monitored. Medical issues including morbid obesity. Patient feeling better today with conservative treatment but still having RUQ abdominal pain. The patient had a repeat CT scan done. The CT scan showed increase in the mesenteric inflammation arising from diverticulitis in the descending colon. There is now secondary involvement of adjacent loops of small bowel which shows severe mural thickening and narrowing of the lumen. There is also small amount of extraluminal gas. No evidence of abscess formation. Still with episodes of abdominal pain. Appears to be tolerating liquid diet without any major issues but she remains hesitant to intake anything solid at this time. Very slow recovery. Last CT scan done showing no change in diverticulitis from admission. Started on low fiber diet today. Objective - Vital Signs/Intake and Output Vital Signs (last 24 hours): Temp Pulse Resp BP Pulse Ox 98.7 F 76 20 173/92 H 100 06/13/17 16:00 06/13/17 16:00 06/13/17 16:00 06/13/17 16:00 06/13/17 16:00 Intake and Output: 06/13/17 06/13/17 06:59 18:59 Intake Total 1560 240 Output Total 3 Balance 1557 240 - Medications Medications: Current Medications Benzocaine (Orajel Pm Maximum Strength) 0 gm MT QID PRN PRN Reason: Tooth pain Last Admin: 06/09/17 17:34 Dose: 1 applic Docusate Sodium (Colace) 100 mg PO DAILY [facility] Last Admin: 06/13/17 10:24 Dose: 100 mg Heparin Sodium (Porcine) (Heparin) 5,000 units SC Q12 [facility] PRN Reason: Protocol Last Admin: 06/13/17 10:23 Dose: 5,000 units Piperacillin Sod/Tazobactam Sod (Zosyn 3.375 In Ns 100ml) 100 mls @ 200 mls/hr IVPB Q6 [facility] PRN Reason: Protocol Stop: 06/16/17 00:00 Last Admin: 06/13/17 15:00 Dose: 200 mls/hr Potassium Chloride 40 meq/ (Dextrose/Sodium Chloride) 1,020 mls @ 100 mls/hr IV .[id number] [facility] Last Admin: 06/13/17 10:24 Dose: 100 mls/hr Metoclopramide HCl (Reglan) 10 mg IVP ACHS PRN PRN Reason: Nausea/Vomiting Ondansetron HCl (Zofran Inj) 4 mg IVP Q6H PRN PRN Reason: Nausea/Vomiting Last Admin: 06/11/17 09:16 Dose: 4 mg Pantoprazole Sodium (Protonix Inj) 40 mg IVP DAILY [facility] Last Admin: 06/13/17 10:27 Dose: 40 mg Tramadol HCl (Ultram) 50 mg PO Q6H PRN PRN Reason: Pain, moderate (4-7) Last Admin: 06/12/17 14:59 Dose: 50 mg - Labs Labs: 06/12/17 06:00 06/13/17 06:00 PT 12.9 Seconds (9.9-11.8) H 06/07/17 11:50 INR 1.19 (0.93-1.08) H 06/07/17 11:50 APTT 31.5 Seconds (23.7-30.8) H 06/07/17 11:50 - Constitutional Appears: Non-toxic, No Acute Distress, Chronically Ill - Head Exam Head Exam: ATRAUMATIC, NORMOCEPHALIC - Eye Exam Eye Exam: EOMI, PERRL Pupil Exam: NORMAL ACCOMODATION, PERRL - ENT Exam ENT Exam: Mucous Membranes Moist, Normal External Ear Exam, TM's Normal Bilaterally - Neck Exam Neck Exam: Full ROM, Normal Inspection - Respiratory Exam Respiratory Exam: Clear to Ausculation Bilateral, NORMAL BREATHING PATTERN. absent: Rales, Rhonchi, Wheezes - Cardiovascular Exam Cardiovascular Exam: REGULAR RHYTHM, RRR, +S1, +S2 - GI/Abdominal Exam GI & Abdominal Exam: Soft, Normal Bowel Sounds. absent: Distended, Tenderness - Extremities Exam Extremities Exam: Full ROM, Normal Inspection - Neurological Exam Neurological Exam: Alert, Awake, CN II-XII Intact, Oriented x3 - Psychiatric Exam Psychiatric exam: Normal Affect, Normal Mood - Skin Skin Exam: Intact, Normal Color Assessment and Plan - Assessment and Plan (Free Text) Assessment: 47 yo AA female with diverticulitis with signs of small perforation on CT scan with potential early abscess. No leukocytosis and no fevers. The patient was started on Cipro and Flagyl for antibiotic coverage which is reasonable. On IV fluids and a clear diet currently. Was on Cipro and Flagyl and received one dose of Rocephin... now on Zosyn for antibiotic coverage. Monitor. Stable. She has periods of RUQ pain. CT scan showing increase in the mesenteric inflammation arising from diverticulitis in the descending colon. There is now secondary involvement of adjacent loops of small bowel which shows severe mural thickening and narrowing of the lumen. There is also small amount of extraluminal gas. No evidence of abscess formation. Conservative treatment being performed. Still with episodes of abdominal pain but improving. Appears to be tolerating diet. Very slow improvement. Repeat CT scans continue to show no change in the current diverticulitis. The patient had Cipro and Flagyl stopped by surgery today and started on Zosyn while keeping Rocephin. Readjusted Zosyn to the proper dose and stopped Rocephin as there is significant overlap between the two antibiotics. Rocephin, Cipro, and Flagyl would have the same coverage as Zosyn. Zosyn advantage is that it is a single drug however there is no single drug oral equivalent. Concerns of whether the patient will need surgery/resection of bowel given the extremely slow rate of improvement. Started on low fiber diet today. Thank you for allowing me to participate in the care of the patient, we will follow with you.
[2017-06-14] MEDS: Piperacillin/Tazobact 3.375 gm 100 ML IVPB SCH ×4 (00:05→18:25)
--- NOTE | 2017-06-14 00:17 | PN ---
DATE: 06/13/2017 SUBJECTIVE: This patient was seen and evaluated earlier. The patient feels first time much improved. Tolerating the diet and had bowel movements. The abdominal pain has significantly improved. PHYSICAL EXAMINATION VITAL SIGNS: Temperature 98.7, blood pressure 145/78, pulse 76, O2 saturation 100%. HEENT: Atraumatic,anicteric. NECK: Supple. HEART: S1 and S2 heard. LUNGS: Bilateral air entry present. ABDOMEN: Soft. There is no mass palpable. No tenderness. IMPRESSION: This 47-year-old patient admitted with acute diverticulitis, contained perforation. The concern is that patient has persistence of the symptoms and the patient had totally 3 CAT scans done and patient does have inflammation around the small bowel loop. The second CAT scan shows significant inflammatory changes around the loop of the bowel which is closer to this contained perforation. This probably was giving some partial obstructive type of symptoms. The patient had some abdominal discomfort after eating. Now, feeling better. This patient has significant inflammation of the diverticulitis with adjoining involvement. Would recommend to complete the antibiotics as recommended by ID. Preferably with an intravenous. The patient would need an elective colonoscopy after 4 weeks' time. Thank you very much for allowing us to participate in the care of the patient. Jessica Jimenez MD
[2017-06-14] MEDS: Potassium Chloride 40 MEQ in Dextrose 5%/0.9% NS 1,000 ML IV SCH (05:35)
--- NOTE | 2017-06-14 06:39 | CP.PCM.PN ---
Subjective - Date & Time of Evaluation Date of Evaluation: 06/14/17 Time of Evaluation: 06:38 - Subjective Subjective: General Surgery Progress note for Dr. Calvillo PT S&E at bedside. SILVER. Patient states her abdominal pain is much better. Denies F/C, N/V. Patient states she wants to go home today. Objective - Vital Signs/Intake and Output Vital Signs (last 24 hours): Temp Pulse Resp BP Pulse Ox 98.7 F 76 20 145/78 100 06/13/17 16:00 06/13/17 16:00 06/13/17 16:00 06/13/17 16:30 06/13/17 16:00 Intake and Output: 06/13/17 06/14/17 18:59 06:59 Intake Total 240 1460 Balance 240 1460 - Medications Medications: Current Medications Benzocaine (Orajel Pm Maximum Strength) 0 gm MT QID PRN PRN Reason: Tooth pain Last Admin: 06/09/17 17:34 Dose: 1 applic Docusate Sodium (Colace) 100 mg PO DAILY [facility] Last Admin: 06/13/17 10:24 Dose: 100 mg Heparin Sodium (Porcine) (Heparin) 5,000 units SC Q12 [facility]ARLOS PRN Reason: Protocol Last Admin: 06/13/17 21:15 Dose: 5,000 units Piperacillin Sod/Tazobactam Sod (Zosyn 3.375 In Ns 100ml) 100 mls @ 200 mls/hr IVPB Q6 [facility]AR[facility] PRN Reason: Protocol Stop: 06/16/17 00:00 Last Admin: 06/14/17 05:36 Dose: 200 mls/hr Potassium Chloride 40 meq/ (Dextrose/Sodium Chloride) 1,020 mls @ 100 mls/hr IV .[id number] [facility] Last Admin: 06/14/17 05:35 Dose: 100 mls/hr Metoclopramide HCl (Reglan) 10 mg IVP ACHS PRN PRN Reason: Nausea/Vomiting Ondansetron HCl (Zofran Inj) 4 mg IVP Q6H PRN PRN Reason: Nausea/Vomiting Last Admin: 06/11/17 09:16 Dose: 4 mg Pantoprazole Sodium (Protonix Inj) 40 mg IVP DAILY [facility] Last Admin: 06/13/17 10:27 Dose: 40 mg Tramadol HCl (Ultram) 50 mg PO Q6H PRN PRN Reason: Pain, moderate (4-7) Last Admin: 06/12/17 14:59 Dose: 50 mg - Labs Labs: 06/14/17 05:10 06/14/17 05:10 PT 12.9 Seconds (9.9-11.8) H 06/07/17 11:50 INR 1.19 (0.93-1.08) H 06/07/17 11:50 APTT 31.5 Seconds (23.7-30.8) H 06/07/17 11:50 - Constitutional Appears: No Acute Distress - Head Exam Head Exam: NORMAL INSPECTION - Eye Exam Eye Exam: EOMI, Normal appearance - ENT Exam ENT Exam: Mucous Membranes Moist - Respiratory Exam Respiratory Exam: Clear to Ausculation Bilateral. absent: Accessory Muscle Use , Respiratory Distress - Cardiovascular Exam Cardiovascular Exam: REGULAR RHYTHM. absent: Bradycardia, Tachycardia - GI/Abdominal Exam GI & Abdominal Exam: Soft, Normal Bowel Sounds. absent: Tenderness, Hyperactive Bowel Sounds, Hypoactive Bowel Sounds - Psychiatric Exam Psychiatric exam: Normal Affect, Normal Mood. absent: Flat Affect - Skin Skin Exam: Dry, Intact, Normal Color, Warm Assessment and Plan - Assessment and Plan (Free Text) Assessment: 47F presents with diverticulitis, resolving Plan: c/w ABX Diet: CLD, advance diet as tolerated. Monitor bowel function discussed with Dr. Rajinder Spence, DO PGY1
[2017-06-14 06:54] LABS: HEMATOCRIT 33.7 % (36.0-48.0); MEAN CELL VOLUME 88.7 fl (80.0-105.0); MEAN CORPUSCULAR HEMOGLOBIN 29.5 pg (25.0-35.0); MEAN CORPUSCULAR HGB CONC 33.2 g/dl (31.0-37.0); MEAN PLATELET VOLUME 9.8 fl (7.0-11.0); RED CELL DISTRIBUTION WIDTH 12.4 % (11.5-14.5)
[2017-06-14 06:55] LABS: ALB/GLOB RATIO 0.9 (1.1-1.8); ALKALINE PHOSPHATASE 72 U/L (38-126); ALT/SGPT 23 U/L (7-56); AST/SGOT 21 U/L (14-36); BILIRUBIN,TOTAL 0.7 mg/dL (0.2-1.3); CARBON DIOXIDE 26 mmol/L (21-33); CHLORIDE 104 mmol/L (98-107); GFR AFRICAN-AMERICAN > 60; GLUCOSE,RANDOM 93 mg/dL (70-110); POTASSIUM 4.2 mmol/L (3.6-5.0); SODIUM 139 mmol/L (132-148); TOTAL PROTEIN 6.8 g/dL (5.8-8.3)
[2017-06-14 07:18] LABS: BLOOD UREA NITROGEN < 2 mg/dL (7-21)
--- NOTE | 2017-06-14 10:29 | CP.PCM.PN ---
<Renuka Nevarez - Last Filed: 06/14/17 10:30> Subjective - Date & Time of Evaluation Date of Evaluation: 06/14/17 Time of Evaluation: 09:00 - Subjective Subjective: Seen and examined at the bedside this morning, chart was reviewed. She was out of bed in the chair just finished breakfast. She tolerated well, no nausea that has resolved, no fever chills, shortness of breath, or chest pain, her abdominal pain has resolved as well. Patient is on Reglan when necessary she has not had any dose that is noted on DEC.She reported having a bowel movement this morning no reports of diarrhea or blood per rectum. Just complains of lower back sciatica pain. Objective - Vital Signs/Intake and Output Vital Signs (last 24 hours): Temp Pulse Resp BP Pulse Ox 98.7 F 76 20 145/78 100 06/13/17 16:00 06/13/17 16:00 06/13/17 16:00 06/13/17 16:30 06/13/17 16:00 Intake and Output: 06/14/17 06/14/17 06:59 18:59 Intake Total 1940 Balance 1940 - Medications Medications: Current Medications Benzocaine (Orajel Pm Maximum Strength) 0 gm MT QID PRN PRN Reason: Tooth pain Last Admin: 06/09/17 17:34 Dose: 1 applic Docusate Sodium (Colace) 100 mg PO DAILY [facility] Last Admin: 06/13/17 10:24 Dose: 100 mg Heparin Sodium (Porcine) (Heparin) 5,000 units SC Q12 [facility]ARLOS PRN Reason: Protocol Last Admin: 06/13/17 21:15 Dose: 5,000 units Piperacillin Sod/Tazobactam Sod (Zosyn 3.375 In Ns 100ml) 100 mls @ 200 mls/hr IVPB Q6 [facility]AR[facility] PRN Reason: Protocol Stop: 06/16/17 00:00 Last Admin: 06/14/17 05:36 Dose: 200 mls/hr Potassium Chloride 40 meq/ (Dextrose/Sodium Chloride) 1,020 mls @ 100 mls/hr IV .[id number] [facility] Last Admin: 06/14/17 05:35 Dose: 100 mls/hr Metoclopramide HCl (Reglan) 10 mg IVP ACHS PRN PRN Reason: Nausea/Vomiting Ondansetron HCl (Zofran Inj) 4 mg IVP Q6H PRN PRN Reason: Nausea/Vomiting Last Admin: 06/11/17 09:16 Dose: 4 mg Pantoprazole Sodium (Protonix Inj) 40 mg IVP DAILY [facility] Last Admin: 06/13/17 10:27 Dose: 40 mg Tramadol HCl (Ultram) 50 mg PO Q6H PRN PRN Reason: Pain, moderate (4-7) Last Admin: 06/12/17 14:59 Dose: 50 mg - Labs Labs: 06/14/17 05:45 06/14/17 05:45 PT 12.9 Seconds (9.9-11.8) H 06/07/17 11:50 INR 1.19 (0.93-1.08) H 06/07/17 11:50 APTT 31.5 Seconds (23.7-30.8) H 06/07/17 11:50 - Constitutional Appears: No Acute Distress - Head Exam Head Exam: NORMOCEPHALIC - Eye Exam Eye Exam: Normal appearance. absent: Scleral icterus - ENT Exam ENT Exam: Mucous Membranes Moist - Neck Exam Neck Exam: Normal Inspection - Respiratory Exam Respiratory Exam: Clear to Ausculation Bilateral, NORMAL BREATHING PATTERN. absent: Respiratory Distress - Cardiovascular Exam Cardiovascular Exam: +S1, +S2 - GI/Abdominal Exam GI & Abdominal Exam: Soft, Normal Bowel Sounds. absent: Guarding, Tenderness, Mass, Organomegaly - Extremities Exam Extremities Exam: Normal Capillary Refill. absent: Calf Tenderness, Pedal Edema - Neurological Exam Neurological Exam: Alert, Awake, Oriented x3 - Skin Skin Exam: Dry, Warm Assessment and Plan - Assessment and Plan (Free Text) Assessment: Assessment: Resolved Left-sided abdominal pain Improving Acute diverticulitis,contained perforation. Status post 3 CAT scans, does show inflammation around small bowel loops. The inflammation is significant with changes around the loop of the bowel which is closer to the contained perforation. Obesity Plan: currently on IV antibiotics of Zosyn Continue Protonix daily Continue IV fluids continue soft low fiber diet on Reglan prn necessary, patient has not had any current dose continue IVF for hydration DC heparin subcutaneous, patient OOB, ambulating On dilaudid for pain management Monitor H&H continue surgical FU Discussed with patient that she would benefit from elective outpatient colonoscopy in about 4 weeks' time after resolution of inflammation. If patient continues to tolerate lunch and dinner may consider discharge home with oral antibiotics as per recommendation of ID. Dr. Jimenez had discussion with Dr. Hameed. Patient may FU in our outpatient office. Seen and discussed with Dr. Jimenez. <Jessica Jimenez V - Last Filed: 06/14/17 21:24> Objective - Vital Signs/Intake and Output Vital Signs (last 24 hours): Temp Pulse Resp BP Pulse Ox 98.3 F 76 20 144/83 98 06/14/17 16:00 06/14/17 16:00 06/14/17 16:00 06/14/17 16:00 06/14/17 16:00 Intake and Output: 06/14/17 06/15/17 18:59 06:59 Intake Total 540 Balance 540 - Medications Medications: Current Medications Acetaminophen (Tylenol 325mg Tab) 650 mg PO Q6H PRN PRN Reason: pain or fever Cyclobenzaprine HCl (Flexeril) 5 mg PO HS PRN PRN Reason: Back pain Last Admin: 06/14/17 18:25 Dose: 5 mg Docusate Sodium (Colace) 100 mg PO DAILY [facility] Last Admin: 06/14/17 10:12 Dose: 100 mg Famotidine (Pepcid) 40 mg PO HS [facility] Piperacillin Sod/Tazobactam Sod (Zosyn 3.375 In Ns 100ml) 100 mls @ 200 mls/hr IVPB Q6 [facility]ARL[facility] PRN Reason: Protocol Stop: 06/16/17 00:00 Last Admin: 06/14/17 18:25 Dose: 200 mls/hr Potassium Chloride 40 meq/ (Dextrose/Sodium Chloride) 1,020 mls @ 50 mls/hr IV .[id number] [facility] Last Admin: 06/14/17 14:27 Dose: 50 mls/hr Ondansetron HCl (Zofran Inj) 4 mg IVP Q6H PRN PRN Reason: Nausea/Vomiting Last Admin: 06/11/17 09:16 Dose: 4 mg - Labs Labs: 06/14/17 05:45 06/14/17 05:45 PT 12.9 Seconds (9.9-11.8) H 06/07/17 11:50 INR 1.19 (0.93-1.08) H 06/07/17 11:50 APTT 31.5 Seconds (23.7-30.8) H 06/07/17 11:50 Attending/Attestation - Attestation I have personally seen and examined this patient.: Yes I have fully participated in the care of the patient.: Yes I have reviewed all pertinent clinical information, including history, physical exam and plan: Yes Notes (Text): This is an addendum to the GE progress report dictated by Renuka Neely APN. The patient is feeling better now and examination abdomen soft no tenderness ID note reviewed. Also discussed with Dr. Banks. Patient was advised to to follow-up for outpatient colonoscopy and the possible colon resection in view of this colonic microperforation to the significant inflammation which extended to the small bowel. Patient was advised initially low residue diet with stool softeners. Contact details for outpatient office follow-up was given 06/14/17 21:21
[2017-06-14] MEDS ORDERED: Potassium Chloride 40 MEQ in Dextrose 5%/0.9% NS 1,000 ML IV SCH (13:58)
--- NOTE | 2017-06-14 15:20 | PN ---
DATE: 06/14/2017 SUBJECTIVE: This 47-year-old female with examined at her bedside. Her nurse Aaron Hirsch, Registered Nurse was present for the interview. The patient was out of bed to chair attempting to eat lunch which consisted of a tuna fish sandwich and this is the first day that the patient has attempted to try her low residue diet. I have discussed this case in detail with Dr. Jessica Jimenez from GI. It is his feeling that the patient, if she can complete today's diet with no adverse effects, no fever, no chills, no abdominal pain, no nausea, no vomiting can be ready for discharge in the a.m. with the understanding she will need a 10-day course of Keflex 500 p.o. t.i.d. as well as Flagyl 500 mg p.o. t.i.d. for 10 full days as recommended by Dr. Clif Curiel from Infectious Disease. Dr. Jessica Jimenez then recommends that the patient has a followup colonoscopy with him in approximately four weeks, but that she also return to the [facility] ER for any worsening signs and symptoms for consideration at that point for possible surgical intervention. This was discussed in detail with the patient with her nurse present and the patient is agreeable with this plan. At present, she denies any fever chills, chest pain, shortness of breath. States she had a soft, brown, formed bowel movement this morning. There was no hematemesis, no melena and no bright red blood per rectum. PHYSICAL EXAMINATION: VITAL SIGNS: Temperature 98.2, respirations 20, pulse 75, and blood pressure 128/70 with a pulse ox of 97% on room air. HEENT: Head is normocephalic, atraumatic. Eyes; no icterus. NECK: Supple. HEART: Regular S1 and S2. LUNGS: Clear. ABDOMEN: Obese, nontender. No palpable organomegaly. No rebound. No guarding. No tenderness. EXTREMITIES: No clubbing, no cyanosis, no edema. SKIN: Without rash. NEUROLOGIC: Intact. PSYCHOLOGIC: Alert and oriented x3. VASCULAR: Legs warm to touch. LABORATORY DATA: White count 9000, hemoglobin 11.2, hematocrit 33.7, and platelets 333,000. Sodium 139, potassium 4.2, chloride 104, and bicarbonate 26. BUN 2, and creatinine 0.6. Random blood sugar is 93. All liver function testing was normal including bilirubin of 0.7, AST of 21, ALT of 23, and alkaline phosphatase 72. Blood and urine cultures are negative today. IMPRESSION: A 47-year-old female with morbid obesity admitted with severe diverticulitis complicated by peptic ulcer disease, gastroesophageal reflux disease, and gastroparesis now improved. PLAN: The plan as discussed above is to continue Colace 100 mg p.o. daily, D5 0.9 saline at 100 mL per hour, Pepcid 40 mg p.o. at bedtime, Zofran 4 mg IV q. 6 hours p.r.n. nausea, vomiting, and Zosyn 3.375 g IV q. 6 hours. Patient continues on incentive spirometer, low residue diet was reviewed at bedside with patient and nurse. She is wearing anti-embolism stockings. She has been scheduled for physical therapy for ambulation and staircase safety and ultimate plan will be for discharge to home in a.m. if stable and cleared by Surgery, Infectious Disease, and Gastroenterology. The patient expressed she understood all of the above. All questions were answered and greater than fifty minutes was spent in the care and management of this patient today. Karol Banks MD MTDD
--- NOTE | 2017-06-14 17:38 | CP.PCM.PN ---
Subjective - Date & Time of Evaluation Date of Evaluation: 06/14/17 Time of Evaluation: 16:30 - Subjective Subjective: Infectious Disease Follow Up: June 14, 2017 47 yo AA female with abdominal pain for 1 month in the left upper and lower quadrant. CT scan showing diverticulitis of the descending colon with possible phlegmon or abscess. On antibiotics and being monitored. Medical issues including morbid obesity. Patient feeling better today with conservative treatment but still having RUQ abdominal pain. The patient had a repeat CT scan done. The CT scan showed increase in the mesenteric inflammation arising from diverticulitis in the descending colon. There is now secondary involvement of adjacent loops of small bowel which shows severe mural thickening and narrowing of the lumen. There is also small amount of extraluminal gas. No evidence of abscess formation. Still with episodes of abdominal pain. Appears to be tolerating liquid diet without any major issues but she remains hesitant to intake anything solid at this time. Very slow recovery. Last CT scan done showing no change in diverticulitis from admission. Started on low fiber diet yesterday and appears to be tolerating. Objective - Vital Signs/Intake and Output Vital Signs (last 24 hours): Temp Pulse Resp BP Pulse Ox 98.3 F 76 20 144/83 98 06/14/17 16:00 06/14/17 16:00 06/14/17 16:00 06/14/17 16:00 06/14/17 16:00 Intake and Output: 06/14/17 06/14/17 06:59 18:59 Intake Total 1940 Balance 1940 - Medications Medications: Current Medications Acetaminophen (Tylenol 325mg Tab) 650 mg PO Q6H PRN PRN Reason: pain or fever Cyclobenzaprine HCl (Flexeril) 5 mg PO HS PRN PRN Reason: Back pain Docusate Sodium (Colace) 100 mg PO DAILY [facility] Last Admin: 06/14/17 10:12 Dose: 100 mg Famotidine (Pepcid) 40 mg PO HS [facility] Piperacillin Sod/Tazobactam Sod (Zosyn 3.375 In Ns 100ml) 100 mls @ 200 mls/hr IVPB Q6 [facility] PRN Reason: Protocol Stop: 06/16/17 00:00 Last Admin: 06/14/17 13:28 Dose: 200 mls/hr Potassium Chloride 40 meq/ (Dextrose/Sodium Chloride) 1,020 mls @ 50 mls/hr IV .[id number] [facility] Last Admin: 06/14/17 14:27 Dose: 50 mls/hr Ondansetron HCl (Zofran Inj) 4 mg IVP Q6H PRN PRN Reason: Nausea/Vomiting Last Admin: 06/11/17 09:16 Dose: 4 mg - Labs Labs: 06/14/17 05:45 06/14/17 05:45 PT 12.9 Seconds (9.9-11.8) H 06/07/17 11:50 INR 1.19 (0.93-1.08) H 06/07/17 11:50 APTT 31.5 Seconds (23.7-30.8) H 06/07/17 11:50 - Constitutional Appears: Non-toxic, No Acute Distress - Head Exam Head Exam: ATRAUMATIC, NORMOCEPHALIC - Eye Exam Eye Exam: EOMI, PERRL Pupil Exam: NORMAL ACCOMODATION, PERRL - ENT Exam ENT Exam: Mucous Membranes Moist, Normal External Ear Exam, TM's Normal Bilaterally - Neck Exam Neck Exam: Full ROM, Normal Inspection - Respiratory Exam Respiratory Exam: Clear to Ausculation Bilateral, NORMAL BREATHING PATTERN. absent: Rales, Rhonchi, Wheezes - Cardiovascular Exam Cardiovascular Exam: REGULAR RHYTHM, RRR, +S1, +S2 - GI/Abdominal Exam GI & Abdominal Exam: Soft, Normal Bowel Sounds. absent: Distended, Tenderness - Extremities Exam Extremities Exam: Full ROM, Normal Inspection - Neurological Exam Neurological Exam: Alert, Awake, CN II-XII Intact, Oriented x3 - Psychiatric Exam Psychiatric exam: Normal Affect, Normal Mood - Skin Skin Exam: Intact, Warm Assessment and Plan - Assessment and Plan (Free Text) Assessment: 47 yo AA female with diverticulitis with signs of small perforation on CT scan with potential early abscess. No leukocytosis and no fevers. The patient was started on Cipro and Flagyl for antibiotic coverage which is reasonable. On IV fluids and a clear diet currently. Was on Cipro and Flagyl and received one dose of Rocephin... now on Zosyn for antibiotic coverage. Monitor. Stable. She has periods of RUQ pain. CT scan showing increase in the mesenteric inflammation arising from diverticulitis in the descending colon. There is now secondary involvement of adjacent loops of small bowel which shows severe mural thickening and narrowing of the lumen. There is also small amount of extraluminal gas. No evidence of abscess formation. Conservative treatment being performed. Still with episodes of abdominal pain but improving. Appears to be tolerating diet. Very slow improvement. Repeat CT scans continue to show no change in the current diverticulitis. The patient had Cipro and Flagyl stopped by surgery today and started on Zosyn while keeping Rocephin. Readjusted Zosyn to the proper dose and stopped Rocephin as there is significant overlap between the two antibiotics. Rocephin, Cipro, and Flagyl would have the same coverage as Zosyn. Zosyn advantage is that it is a single drug however there is no single drug oral equivalent. Concerns of whether the patient will need surgery/resection of bowel given the extremely slow rate of improvement. Started on low fiber diet yesterday and appears to be tolerating. Patient states she is feeling better. Her complaints are mostly back pains secondary to sciatica. She has tolerated the PCN/Cephalosporin antibiotic treatments. Can consider use of Keflex 500 mg TID with Flagyl 500 mg TID for 10 more days of treatment orally when patient is able to be discharged. Thank you for allowing me to participate in the care of the patient, we will follow with you.
[2017-06-15] MEDS: Piperacillin/Tazobact 3.375 gm 100 ML IVPB SCH ×3 (05:17→11:23)
[2017-06-15 07:52] VITALS: BP 148/88; PULSE 82; TEMP 98.9; O2SAT 96
--- NOTE | 2017-06-15 07:53 | CP.PCM.PN ---
Subjective - Date & Time of Evaluation Date of Evaluation: 06/15/17 Time of Evaluation: 07:52 - Subjective Subjective: General Surgery Progress note for Dr. Calvillo PT S&E at bedside. SILVER. Patient states her abdominal pain is much better. Denies F/C, N/V. Patient states she wants to go home today. Per primary, patient is set to go home. Awaiting clearance from consults. Objective - Vital Signs/Intake and Output Vital Signs (last 24 hours): Temp Pulse Resp BP Pulse Ox 98.9 F 82 20 148/88 96 06/15/17 07:52 06/15/17 07:52 06/15/17 07:52 06/15/17 07:52 06/15/17 07:52 Intake and Output: 06/15/17 06/15/17 06:59 18:59 Intake Total 1680 Balance 1680 - Medications Medications: Current Medications Acetaminophen (Tylenol 325mg Tab) 650 mg PO Q6H PRN PRN Reason: pain or fever Cyclobenzaprine HCl (Flexeril) 5 mg PO HS PRN PRN Reason: Back pain Last Admin: 06/14/17 18:25 Dose: 5 mg Docusate Sodium (Colace) 100 mg PO DAILY [facility] Last Admin: 06/14/17 10:12 Dose: 100 mg Famotidine (Pepcid) 40 mg PO HS [facility] Last Admin: 06/14/17 21:32 Dose: 40 mg Piperacillin Sod/Tazobactam Sod (Zosyn 3.375 In Ns 100ml) 100 mls @ 200 mls/hr IVPB Q6 [facility] PRN Reason: Protocol Stop: 06/16/17 00:00 Last Admin: 06/15/17 05:21 Dose: 200 mls/hr Potassium Chloride 40 meq/ (Dextrose/Sodium Chloride) 1,020 mls @ 50 mls/hr IV .[id number] [facility] Last Admin: 06/14/17 14:27 Dose: 50 mls/hr Ondansetron HCl (Zofran Inj) 4 mg IVP Q6H PRN PRN Reason: Nausea/Vomiting Last Admin: 06/11/17 09:16 Dose: 4 mg - Labs Labs: 06/14/17 05:45 06/14/17 05:45 PT 12.9 Seconds (9.9-11.8) H 06/07/17 11:50 INR 1.19 (0.93-1.08) H 06/07/17 11:50 APTT 31.5 Seconds (23.7-30.8) H 06/07/17 11:50 - Constitutional Appears: No Acute Distress - Head Exam Head Exam: NORMAL INSPECTION - Eye Exam Eye Exam: EOMI, Normal appearance - ENT Exam ENT Exam: Mucous Membranes Moist - Neck Exam Neck Exam: Full ROM, Normal Inspection - Respiratory Exam Respiratory Exam: Clear to Ausculation Bilateral. absent: Accessory Muscle Use , Respiratory Distress - Cardiovascular Exam Cardiovascular Exam: REGULAR RHYTHM. absent: Bradycardia, Tachycardia - GI/Abdominal Exam GI & Abdominal Exam: Soft, Normal Bowel Sounds. absent: Tenderness, Diminished Bowel Sounds - Extremities Exam Extremities Exam: Full ROM, Normal Inspection. absent: Pedal Edema - Back Exam Back Exam: Full ROM, NORMAL INSPECTION - Neurological Exam Neurological Exam: Alert, Awake, Normal Gait, Oriented x3 - Psychiatric Exam Psychiatric exam: Normal Affect, Normal Mood - Skin Skin Exam: Dry, Intact, Normal Color, Warm Assessment and Plan - Assessment and Plan (Free Text) Assessment: 47F presents with diverticulitis, resolving Plan: c/w ABX Diet: CLD, advance diet as tolerated. Monitor bowel function discussed with Dr. Rajinder Spence, DO PGY1
--- NOTE | 2017-06-15 11:07 | CP.PCM.PN ---
Subjective - Date & Time of Evaluation Date of Evaluation: 06/15/17 Time of Evaluation: 09:05 - Subjective Subjective: Seen and examined at the bedside earlier this morning. No acute overnight events reported. Patient denies nausea, vomiting, or abdominal pain. The symptoms have resolved. No reports of fever, chills, shortness of breath, or chest pain. Tolerated her low fiber diet this morning. Patient states she is ready to be discharged home. Objective - Vital Signs/Intake and Output Vital Signs (last 24 hours): Temp Pulse Resp BP Pulse Ox 98.9 F 82 20 148/88 96 06/15/17 07:52 06/15/17 07:52 06/15/17 07:52 06/15/17 07:52 06/15/17 07:52 Intake and Output: 06/15/17 06/15/17 06:59 18:59 Intake Total 1680 Balance 1680 - Medications Medications: Current Medications Acetaminophen (Tylenol 325mg Tab) 650 mg PO Q6H PRN PRN Reason: pain or fever Cyclobenzaprine HCl (Flexeril) 5 mg PO HS PRN PRN Reason: Back pain Last Admin: 06/14/17 18:25 Dose: 5 mg Docusate Sodium (Colace) 100 mg PO DAILY [facility] Last Admin: 06/15/17 09:03 Dose: 100 mg Famotidine (Pepcid) 40 mg PO HS [facility] Last Admin: 06/14/17 21:32 Dose: 40 mg Piperacillin Sod/Tazobactam Sod (Zosyn 3.375 In Ns 100ml) 100 mls @ 200 mls/hr IVPB Q6 [facility] PRN Reason: Protocol Stop: 06/16/17 00:00 Last Admin: 06/15/17 05:21 Dose: 200 mls/hr Potassium Chloride 40 meq/ (Dextrose/Sodium Chloride) 1,020 mls @ 50 mls/hr IV .[id number] [facility] Last Admin: 06/14/17 14:27 Dose: 50 mls/hr Ondansetron HCl (Zofran Inj) 4 mg IVP Q6H PRN PRN Reason: Nausea/Vomiting Last Admin: 06/11/17 09:16 Dose: 4 mg - Labs Labs: 06/14/17 05:45 06/14/17 05:45 PT 12.9 Seconds (9.9-11.8) H 06/07/17 11:50 INR 1.19 (0.93-1.08) H 06/07/17 11:50 APTT 31.5 Seconds (23.7-30.8) H 06/07/17 11:50 - Constitutional Appears: No Acute Distress - Head Exam Head Exam: NORMOCEPHALIC - Eye Exam Eye Exam: Normal appearance. absent: Scleral icterus - ENT Exam ENT Exam: Mucous Membranes Moist - Neck Exam Neck Exam: Normal Inspection - Respiratory Exam Respiratory Exam: Clear to Ausculation Bilateral, NORMAL BREATHING PATTERN. absent: Respiratory Distress - Cardiovascular Exam Cardiovascular Exam: +S1, +S2 - GI/Abdominal Exam GI & Abdominal Exam: Soft, Normal Bowel Sounds. absent: Guarding, Tenderness, Organomegaly, Rebound - Extremities Exam Extremities Exam: Normal Capillary Refill. absent: Calf Tenderness, Pedal Edema - Neurological Exam Neurological Exam: Alert, Awake, Oriented x3 - Skin Skin Exam: Dry, Warm Assessment and Plan - Assessment and Plan (Free Text) Assessment: Assessment: Resolved Left-sided abdominal pain Improving Acute diverticulitis,contained perforation. Status post 3 CAT scans, does show inflammation around small bowel loops. The inflammation is significant with changes around the loop of the bowel which is closer to the contained perforation. Obesity Plan: continue current treatment, from GI standpoint patient can be discharged home to continue on low soft fiber diet. Upon discharge patient will be sent on Keflex and Flagyl as per ID for a ten- day course. Discussed with patient to follow up in outpatient office in 1-2 weeks, she would also benefit from elective colonoscopy after resolution of inflammation. Discussed with patient if any acute symptoms were to return fever , chills, abdominal pain to return to the emergency room. Discussed with nursing staff, office contact information to be given. Seen and discussed with Dr. Jimenez.
--- NOTE | 2017-06-15 16:55 | DS ---
FINAL DIAGNOSES: Diverticulitis, morbid obesity and degenerative arthritis. DISPOSITION: Home. Followup with Dr. Jessica Jimenez from GI in approximately 1 week. The patient given his phone number [phone] to schedule outpatient followup. The patient also advised she will need a colonoscopy in approximately 4 weeks. DISCHARGE DIET: Low residue reviewed with the patient. DISCHARGE MEDICATIONS: Keflex 500 mg p.o. t.i.d. #30, Flagyl 500 mg p.o. t.i.d. #30, Colace 100 mg p.o. daily #30 and the patient is advised to use Pepcid 40 mg p.o. at bedtime p.r.n. dyspepsia. SUMMARY: This 47-year-old female was admitted to [facility] with abdominal pain in the radiographic and clinical setting of diverticulitis. She was followed throughout her hospital course by surgery, infectious disease and gastroenterology, all of whom who cleared the patient for discharge at the time of this dictation. The patient at present is fully ambulatory. PHYSICAL EXAMINATION: VITAL SIGNS: Temperature 98.9, respirations 20, pulse 82 and blood pressure 148/88 with a pulse ox of 96% on room air. ABDOMEN: Showed normal bowel sounds. No rebound. No guarding. No tenderness. LABORATORY DATA: White count 9000, hemoglobin 11.2, hematocrit 33.7 and platelets 333,000. PT/INR 1.9. Chemistry: Sodium 139, potassium 4.2, chloride 104, bicarbonate 26, BUN 2, creatinine 0.6 and random blood sugar 93. All liver function testing was normal including bilirubin 0.7, AST 21, ALT 23 and alk phos 72. Microbiology study showed no growth of blood or urine cultures. At the time of discharge, the patient was tolerating a low residue soft bland diet. She is having normal bowel movements and tolerating medications as outlined. She is aware that she will need close outpatient gastrointestinal followup. She still needs a colonoscopy. If she has any change in signs and symptoms or worsening, complains of fever, chills, vomiting or inability to move her bowels she has been advised to return to [facility] ER. She is aware that if her condition should worsen, she may need surgery, but hopefully, this process will resolve with conservative therapy including oral antibiotics at this time. All of the above was reviewed with the patient at her bedside with her nurse, Dee Carpenter, present. All questions were answered. Karol Banks MD MTDMelissa
== END 2017-06-15 13:58 | disposition home or self-care (01) | DRG 392 ==
LOC: ED 18:06 → ERH 22:39 → 3RNO 06-04 00:02
PROVIDERS: ADMIT Internal Medicine; ATTEND Internal Medicine
DX: K57.20 Diverticulitis of large intestine with perforation and abscess without bleeding (principal); Z68.42 Body mass index [BMI] 45.0-49.9, adult; K27.9 Peptic ulcer, site unspecified, unspecified as acute or chronic, without hemorrhage or perforation; K21.9 Gastro-esophageal reflux disease without esophagitis; K31.84 Gastroparesis; M19.90 Unspecified osteoarthritis, unspecified site; E66.01 Morbid (severe) obesity due to excess calories; E87.6 Hypokalemia; M54.30 Sciatica, unspecified side

== ENCOUNTER 2017-06-19 10:01 | Inpatient (IN) | payer BC ==
--- NOTE | 2017-06-19 11:06 | ED PDOC ---
Arrival/HPI - General Chief Complaint: Back Pain Time Seen by Provider: 06/19/17 10:55 Historian: Patient - History of Present Illness Narrative History of Present Illness (Text): 06/19/17 11:06 47 year old female, whose past medical history includes diverticulitis, presents to the emergency department complaining of left upper abdominal pain that began to worsen 2 days ago. Patient states she went home 4 days ago after her diagnosis of diverticulitis, but when she began to actively go out two days ago, patient began to feel dizziness, weakness, and "irritated/pressure" pain on her left upper abdomen. She also reports she has loss of appetite and feels warm, but denies any chills, chest pain, shortness of breath, nausea, vomiting, diarrhea, urinary symptoms, back pain, neck pain, headache, or any other complaints. Patient currently takes Cephexin and Metronidazele 30 pills for 10 days. PMD: Denies having one. Time/Duration: Other (2 days ) Symptom Onset: Gradual Symptom Course: Unchanged Quality: Pressure Activities at Onset: Light Context: Home Past Medical History - Provider Review Nursing Documentation Reviewed: Yes - Infectious Disease Hx of Infectious Diseases: None - Tetanus Immunization Tetanus Immunization: Unknown - Cardiac Hx Cardiac Disorders: No - Pulmonary Hx Respiratory Disorders: No - Neurological Hx Neurological Disorder: No - HEENT Hx HEENT Disorder: No - Renal Hx Renal Disorder: No - Endocrine/Metabolic Hx Endocrine Disorders: No - Hematological/Oncological Hx Blood Disorders: No - Integumentary Hx Dermatological Disorder: No - Musculoskeletal/Rheumatological Hx Musculoskeletal Disorders: Yes Other/Comment: scica left side - Gastrointestinal Hx Diverticulitis: Yes - Genitourinary/Gynecological Hx Genitourinary Disorders: No - Psychiatric Hx Psychophysiologic Disorder: No Hx Substance Use: No Family/Social History - Physician Review Nursing Documentation Reviewed: Yes Family/Social History: No Known Family HX Smoking Status: Never Smoked Hx Alcohol Use: No Hx Substance Use: No Allergies/Home Meds Allergies/Adverse Reactions: Allergies No Known Allergies Allergy (Verified 06/19/17 10:22) Review of Systems - Physician Review All systems were reviewed & negative as marked: Yes - Review of Systems Constitutional: Fevers (Feels warm). absent: Other (Chills) Respiratory: Cough. absent: SOB Cardiovascular: absent: Chest Pain Gastrointestinal: Abdominal Pain, Nausea, Appetite Changes (Loss of appetite ). absent: Diarrhea, Vomiting Genitourinary Female: absent: Dysuria, Frequency, Hematuria Musculoskeletal: absent: Back Pain, Neck Pain Neurological: Dizziness (/weakness). absent: Headache Physical Exam Vital Signs Reviewed: Yes Vital Signs Temp Pulse Resp BP Pulse Ox 06/19/17 14:09 79 18 148/75 97 06/19/17 12:51 74 18 127/74 98 06/19/17 10:15 98.1 F 88 18 124/99 H 96 Temperature: Afebrile Blood Pressure: Normal Pulse: Regular Respiratory Rate: Normal Appearance: Positive for: Well-Appearing, Non-Toxic, Comfortable, Other (Obese) Pain Distress: None Mental Status: Positive for: Alert and Oriented X 3 - Systems Exam Head: Present: Atraumatic, Normocephalic Pupils: Present: PERRL Extroacular Muscles: Present: EOMI Conjunctiva: Present: Normal Mouth: Present: Moist Mucous Membranes Neck: Present: Normal Range of Motion Respiratory/Chest: Present: Clear to Auscultation, Good Air Exchange. No: Respiratory Distress, Accessory Muscle Use Cardiovascular: Present: Regular Rate and Rhythm, Normal S1, S2. No: Murmurs Abdomen: Present: Tenderness (Left Upper Quadrant tenderness), Normal Bowel Sounds. No: Distention, Peritoneal Signs, Rebound, Guarding Back: Present: Normal Inspection. No: CVA Tenderness, Midline Tenderness, Paraspinal Tenderness Lower Extremity: Present: Normal Inspection. No: Edema Neurological: Present: GCS=15, CN II-XII Intact, Speech Normal Skin: Present: Warm, Dry, Normal Color. No: Rashes Psychiatric: Present: Alert, Oriented x 3, Normal Insight, Normal Concentration Medical Decision Making ED Course and Treatment: 06/19/17 11:06 Impression: 47 year old female presents complaining of dizziness and left upper abdominal pain for the past 2 days. Differential Diagnosis included but are not limited to: Diverticulitis VS Dehydration Plan: -- Labs -- Pepcid -- IV Fluids -- Zofran Inj -- Urine Culture -- IV Saline -- X-Ray Abdomen 2 views -- Urinalysis -- Reassess and disposition Prior Visits: Notes and results from previous visits were reviewed. Patient was last seen in the emergency department on 06/03/17 for left sided abdominal pain. Patient was diagnosed with Diverticulitis. Progress Notes: ABD 2 VIEWS Dictated By: Nayan Mccarty MD Dictated Date/Time 06/19/17 12:27 OTHER FINDINGS: None IMPRESSION: No active disease 06/19/17 12:37 Patient feeling better but still having symptoms after hydration. I discussed the case with Dr. Banks who agrees that patient needs to be admitted for persistant abdominal pain due to diverticulitis and decreased PO intake secondary to symptoms. Case discussed with Dr. Calvillo, Surgery, as per her request. Patient's vitals are stable and patient is stable for admission to the medical floor. - Lab Interpretations Lab Results: 06/19/17 11:41 06/19/17 11:41 Lab Results 06/19/17 11:41: Sodium 136, Potassium 4.2, Chloride 97 L, Carbon Dioxide 27, Anion Gap 16, BUN 4 L, Creatinine 0.5, Est GFR ( Amer) > 60, Est GFR (Non -Af Amer) > 60, Random Glucose 87, Calcium 10.0, Total Bilirubin 0.7, AST 24, ALT 24, Alkaline Phosphatase 92, Total Protein 8.8 H, Albumin 4.2, Globulin 4.6 , Albumin/Globulin Ratio 0.9 L, Lipase 124 06/19/17 11:41: PT 12.6 H, INR 1.17 H, APTT 38.7 H 06/19/17 11:41: WBC 10.2, RBC 4.40, Hgb 13.2 D, Hct 39.1, MCV 88.9, MCH 30.0, MCHC 33.8, RDW 12.1, Plt Count 409, MPV 9.8, Gran % 77.0 H, Lymph % (Auto) 14.8 L, Randall % (Auto) 7.6 H, Eos % (Auto) 0.6 L, Baso % (Auto) 0.0, Gran # 7.86 H, Lymph # 1.5, Randall # 0.8 H, Eos # 0.1, Baso # 0.00 06/19/17 11:20: Urine Color Yellow, Urine Appearance Cloudy, Urine pH 6.0, Ur Specific [place] >= 1.030, Urine Protein 30 H, Urine Glucose (UA) Negative, Urine Ketones >=80, Urine Blood Negative, Urine Nitrate Positive H, Urine Bilirubin Moderate H, Urine Urobilinogen 1.0 H, Ur Leukocyte Esterase Trace H, Urine RBC 0 - 2, Urine WBC 1 - 3, Ur Epithelial Cells Many, Urine Bacteria Few I have reviewed the lab results: Yes Interpretation: Abnormal lab values (UA with UTI - already treated with Rocephin. f/u cultures) - RAD Interpretation Radiology Orders: 06/19/17 11:10 ABD 2 VIEWS (FLAT/UP OR DECUB) [RAD] Stat Insulating Machine Operator: Radiologist - Medication Orders Current Medication Orders: Acetaminophen (Tylenol 325mg Tab) 650 mg PO Q6H PRN PRN Reason: Pain, moderate (4-7) Docusate Sodium (Colace) 100 mg PO DAILY [facility] Famotidine (Pepcid) 40 mg PO HS [facility] Dextrose/Sodium Chloride (Dextrose 5%/0.45% Ns 1000 Ml) 1,000 mls @ 100 mls/hr IV .Q10H [facility] Last Admin: 06/19/17 17:07 Dose: 100 mls/hr Metronidazole (Flagyl) 500 mg in 100 mls @ 100 mls/hr IVPB Q8 [facility] PRN Reason: Protocol Ceftriaxone Sodium (Rocephin 1 Gram Ivpb) 1 gm in 100 mls @ 100 mls/hr IVPB DAILY [facility] PRN Reason: Protocol Last Admin: 06/19/17 17:07 Dose: 100 mls/hr Nitroglycerin (Nitro-Bid 2% Oint) 1 ea TOP Q4H PRN PRN Reason: Other Ondansetron HCl (Zofran Inj) 4 mg IVP Q6H PRN PRN Reason: Nausea/Vomiting Discontinued Medications Famotidine (Pepcid) 20 mg IVP STAT STA Stop: 06/19/17 11:10 Last Admin: 06/19/17 12:18 Dose: 20 mg Sodium Chloride (Sodium Chloride 0.9%) 1,000 mls @ 1,000 mls/hr IV .Q1H [facility] Stop: 06/19/17 12:08 Last Admin: 06/19/17 11:42 Dose: 1,000 mls/hr Metronidazole (Flagyl) 500 mg in 100 mls @ 100 mls/hr IVPB STAT STA PRN Reason: Protocol Stop: 06/19/17 14:51 Last Admin: 06/19/17 14:03 Dose: 100 mls/hr Ondansetron HCl (Zofran Inj) 4 mg IVP STAT STA Stop: 06/19/17 11:10 Last Admin: 06/19/17 12:18 Dose: 4 mg - [place] Statement The provider has reviewed the documentation as recorded by the [facility] [place] All medical record entries made by the [place] were at my direction and personally dictated by me. I have reviewed the chart and agree that the record accurately reflects my personal performance of the history, physical exam, medical decision making, and the department course for this patient. I have also personally directed, reviewed, and agree with the discharge instructions and disposition. Disposition/Present on Arrival - Present on Arrival Any Indicators Present on Arrival: No History of DVT/PE: No History of Uncontrolled Diabetes: No Urinary Catheter: No History of Decub. Ulcer: No History Surgical Site Infection Following: None - Disposition Have Diagnosis and Disposition been Completed?: Yes Diagnosis: Diverticulitis, Abdominal pain Disposition: HOSPITALIZED Disposition Time: 12:37 Condition: FAIR
[2017-06-19] MEDS ORDERED: Sodium Chloride 0.9% 1,000 ML IV STA (11:09)
[2017-06-19 11:26] LABS: URINE BILIRUBIN MODERATE (NEGATIVE); URINE BLOOD NEGATIVE (NEGATIVE); URINE GLUCOSE (UA) NEGATIVE (NEGATIVE); URINE KETONE >=80 mg/dL (NEGATIVE); URINE LEUKOCYTE ESTERASE TRACE Leu/uL (NEGATIVE); URINE PROTEIN 30 mg/dL (<30 mg/dL)
[2017-06-19 11:29] LABS: URINE APPEARANCE CLOUDY (CLEAR); URINE COLOR YELLOW (YELLOW)
[2017-06-19 11:45] LABS: EOS # 0.1 (0.0-0.7); EOS % 0.6 % (1.5-5.0); GRAN # 7.86 (1.4-6.5); HEMATOCRIT 39.1 % (36.0-48.0); LYMPH # 1.5 (1.2-3.4); LYMPH % 14.8 % (22.0-35.0); MEAN CELL VOLUME 88.9 fl (80.0-105.0); MEAN CORPUSCULAR HGB CONC 33.8 g/dl (31.0-37.0); MEAN PLATELET VOLUME 9.8 fl (7.0-11.0); MONO # 0.8 (0.1-0.6); MONO % 7.6 % (1.0-6.0); RED CELL DISTRIBUTION WIDTH 12.1 % (11.5-14.5); WHITE BLOOD COUNT 10.2 10^3/ul (4.5-11.0)
[2017-06-19 11:48] LABS: URINE BACTERIA FEW (NEG); URINE EPITHELIAL CELLS MANY /hpf (0-5); URINE RBC 0 - 2 /hpf (0-2)
[2017-06-19 11:54] LABS: ALB/GLOB RATIO 0.9 (1.1-1.8); ALKALINE PHOSPHATASE 92 U/L (38-126); ALT/SGPT 24 U/L (7-56); AST/SGOT 24 U/L (14-36); BILIRUBIN,TOTAL 0.7 mg/dL (0.2-1.3); BLOOD UREA NITROGEN 4 mg/dL (7-21); CARBON DIOXIDE 27 mmol/L (21-33); CHLORIDE 97 mmol/L (98-107); GFR AFRICAN-AMERICAN > 60; GLUCOSE,RANDOM 87 mg/dL (70-110); LIPASE 124 U/L (23-300); POTASSIUM 4.2 mmol/L (3.6-5.0); SODIUM 136 mmol/L (132-148); TOTAL PROTEIN 8.8 g/dL (5.8-8.3)
[2017-06-19 11:58] LABS: INR 1.17 (0.93-1.08); PARTIAL THROMBOPLASTIN TIME 38.7 Seconds (23.7-30.8)
--- NOTE | 2017-06-19 12:28 | RAD ---
HISTORY: abd pain COMPARISON: No prior. FINDINGS: BOWEL: Normal. No obstruction. No free air. BONES: Normal. OTHER FINDINGS: None. IMPRESSION: No active disease.
[2017-06-19] MEDS ORDERED: metroNIDAZOLE IV 500 mg/100 ml 500 MG/100 ML BAG IVPB STA (13:52)
[2017-06-19] MEDS ORDERED: cefTRIAXone 1 gm 1 G/100 ML BAG IVPB STA (13:53)
--- NOTE | 2017-06-19 16:18 | CP.PCM.CON ---
History of Present Illness - History of Present Illness History of Present Illness: General surgery consult note for Dr. Kamaljit Luciano, PGY-1 Pt S & E at bedside. 47F w/PMH sig for morbid obesity and recent dx of diverticulitis - discharged from hospital on 06/15 consulted for possible recurrence of diverticulitis. Patient reports poor appetite, poor taste of food, generalized weakness/fatigue , inability to grocery shop. Denies N/V/F/C, SOB, CP, abdominal pain, constipation, diarrhea, changes in bladder habits, hematochezia, hematuria, other complaints. PMH: Morbid obesity PSH: Denies All: Denies SH: Admits to 4-5 drinks ETOH/mo, denies tobacco or illicit drug use PMD: None Pharmacy: [facility] Review of Systems - Review of Systems All systems: reviewed and no additional remarkable complaints except - Constitutional Constitutional: Fatigue, Weakness. absent: Chills, Fever, Headache - EENT Eyes: absent: Change in Vision Ears: absent: Dizziness Nose/Mouth/Throat: absent: Dysphagia, Sore Throat - Cardiovascular Cardiovascular: absent: Chest Pain, Edema, Leg Edema - Gastrointestinal Gastrointestinal: absent: Abdominal Pain, Belching, Bloating, Change in Bowel Habits, Hematemesis, Hematochezia, Loose Stools, Melena, Nausea, Vomiting - Genitourinary Genitourinary: absent: Change in Urinary Stream - Musculoskeletal Musculoskeletal: Muscle Weakness. absent: Back Pain, Numbness, Tingling - Psychiatric Psychiatric: Change in Appetite (decreased) Past Patient History - Infectious Disease Hx of Infectious Diseases: None - Tetanus Immunizations Tetanus Immunization: Unknown - Past Social History Smoking Status: Never Smoked - CARDIAC Hx Cardiac Disorders: No - PULMONARY Hx Respiratory Disorders: No - NEUROLOGICAL Hx Neurological Disorder: No - HEENT Hx HEENT Problems: No - RENAL Hx Chronic Kidney Disease: No - ENDOCRINE/METABOLIC Hx Endocrine Disorders: No - HEMATOLOGICAL/ONCOLOGICAL Hx Blood Disorders: No - INTEGUMENTARY Hx Dermatological Problems: No - MUSCULOSKELETAL/RHEUMATOLOGICAL Hx Musculoskeletal Disorders: Yes Other/Comment: scica left side - GASTROINTESTINAL Hx Diverticulitis: Yes - GENITOURINARY/GYNECOLOGICAL Hx Genitourinary Disorders: No - PSYCHIATRIC Hx Psychophysiologic Disorder: No Hx Substance Use: No - SURGICAL HISTORY Hx Surgeries: No Meds Allergies/Adverse Reactions: Allergies Allergy/AdvReac Type Severity Reaction Status Date / Time No Known Allergies Allergy Verified 06/19/17 10:22 Physical Exam - Constitutional Appears: Non-toxic, No Acute Distress - Head Exam Head Exam: ATRAUMATIC, NORMAL INSPECTION, NORMOCEPHALIC - Eye Exam Eye Exam: EOMI, Normal appearance - ENT Exam ENT Exam: Mucous Membranes Moist, Normal Exam - Neck Exam Neck exam: Positive for: Full Rom - Respiratory Exam Respiratory Exam: Clear to Auscultation Bilateral, NORMAL BREATHING PATTERN - Cardiovascular Exam Cardiovascular Exam: REGULAR RHYTHM, +S1, +S2 - GI/Abdominal Exam GI & Abdominal Exam: Normal Bowel Sounds, Soft. absent: Distended (obese), Firm , Guarding, Rebound, Tenderness - Extremities Exam Extremities exam: Positive for: normal inspection. Negative for: pedal edema - Back Exam Back exam: NORMAL INSPECTION - Neurological Exam Neurological exam: Alert, CN II-XII Intact, Normal Gait, Oriented x3 - Psychiatric Exam Psychiatric exam: Normal Affect, Normal Mood - Skin Skin Exam: Dry, Intact, Normal Color, Warm Results - Vital Signs Recent Vital Signs: Last Vital Signs Temp 98.1 F 06/19/17 10:15 Pulse 79 06/19/17 14:09 Resp 18 06/19/17 14:09 BP 148/75 06/19/17 14:09 Pulse Ox 97 06/19/17 14:09 - Labs Result Diagrams: 06/19/17 11:41 06/19/17 11:41 Assessment & Plan - Assessment and Plan (Free Text) Assessment: 47F w/PMH sig for diverticulitis- no abdominal pain, unlikely diverticulitis recurrence, poor appetite, generalized weakness, Plan: Afebrile No leukocytosis No abdominal pain FLD- advance diet as tolerated OOBTC Ambulate Rec: PT No surgical intervention at this time DW attending Ankita, PGY-1 - Date & Time Date: 06/19/17 Time: 14:45
[2017-06-19] MEDS ORDERED: Nitroglycerin 2% Ointment Foilpak UD TOP PRN (16:19)
[2017-06-19] MEDS: cefTRIAXone 1 gm 1 GM/100 ML BAG IVPB SCH (17:07)
[2017-06-19] MEDS: Dextrose 5%/0.45% NS 1,000 ML IV SCH (17:07)
[2017-06-19 17:26] VITALS: BMI 47.4
[2017-06-19] MEDS: metroNIDAZOLE IV 500 mg/100 ml 500 MG/100 ML BAG IVPB SCH (21:36)
[2017-06-20] MEDS: Dextrose 5%/0.45% NS 1,000 ML IV SCH ×2 (02:57→19:00)
--- NOTE | 2017-06-20 03:08 | HP ---
HISTORY OF PRESENT ILLNESS: This 47-year-old female represented to [facility] ER for further evaluation of left lower abdominal pain and generalized weakness. The patient was recently hospitalized and discharged on oral antibiotics for a left lower colon diverticulitis. Since discharge, the patient states she has been unable to tolerate fluids or solid foods, has no appetite, and feels generalized weakness. In the emergency room, she was felt to be clinically dehydrated and was treated with IV fluids. The patient denies any fever, chills, nausea or vomiting since discharge, but states that the crampy left lower abdominal pain and anorexia brought her back to the emergency room for further evaluation of the above. PAST MEDICAL HISTORY: Significant for morbid obesity, recently diagnosed left colon diverticulitis, degenerative arthritis and history of sciatica. ALLERGIES: THE PATIENT HAS NO KNOWN ALLERGIES TO MEDICATIONS. 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 She is a nonsmoker, social drinker, non IV drug misuser. FAMILY HISTORY: Noncontributory. OUTPATIENT MEDICATION: Include, Keflex 500 mg p.o. t.i.d., Flagyl 500 mg p.o. t.i.d, and Colace 100 mg p.o. daily. The patient stated she had a bowel movement yesterday. REVIEW OF SYSTEMS: HEAD REVIEW: No headache or seizure. EYE REVIEW: No change in visual equity. EAR REVIEW: No hearing loss. THROAT REVIEW: No swallowing difficulty. NECK REVIEW: No stiffness. CARDIAC REVIEW: No chest pain. No palpitations. PULMONARY: No cough. No hemoptysis. GASTROINTESTINAL: As per HPI. GENITOURINARY: No dysuria. SKIN: Without rash. NEUROLOGIC: Unchanged. PSYCHOLOGICAL: Anxious. VASCULAR: Legs warm to touch. PHYSICAL EXAMINATION VITAL SIGNS: The patient is in a normal sinus rhythm on the logging engineer. Temperature 98.1, respirations 18, pulse 88, blood pressure 124/72 with a pulse ox of 98% in room air. HEENT: Head is normocephalic and atraumatic. Eyes: No icterus. Ears: Clear. Throat: Non-injected. NECK: Supple. HEART: Regular, S1 and S2. LUNGS: Clear. ABDOMEN: Obese, nontender without organomegaly. No CVA tenderness. There was left lower quadrant discomfort on deep palpation. No rebound. No guarding. EXTREMITIES: No clubbing. No cyanosis. No edema. SKIN: Without rash. NEUROLOGICAL: Grossly intact. PSYCHOLOGICAL: Alert and anxious. VASCULAR: Legs warm to touch. LABORATORY DATA: White count 10,200, hemoglobin 13.2, hematocrit 39.1, and platelets 109,000. PT/INR 1.17, PTT 38.7. Sodium 136, potassium 4.2, chloride 97, bicarbonate 27.4, creatinine 0.5. Random blood sugar was 87, bilirubin 0.7, AST 24, ALT 24, and alkaline phosphatase 92. Lipase 124. Urinalysis showed few bacteria. Abdominal x ray showed no obstruction. IMPRESSION: A 47-year-old female with morbid obesity, recently diagnosed with diverticulitis, with persistent left lower quadrant abdominal pain in the absence of obstructive symptoms or radiographic findings with anorexia and weakness. PLAN: At present is to admit this patient. She has been ordered to have blood and urine cultures and a stool for Clostridium difficile toxin. She will be given Colace 100 mg p.o. daily, D 5 0.45 saline at 100 mL per hour, Flagyl 500 mg IV q. 8, Rocephin 1 gram IV q. 24 hours, Pepcid 40 mg p.o. at bedtime, and Zofran 4 mg IV q. 6 hours p.r.n. nausea or vomiting. She has been cleared for a liquid diet by surgery. She has been ordered to have bathroom privileges and to be placed on fall precautions and to be assisted out of bed to chair. She is awaiting GI evaluation regarding recurrence in her abdominal pain that has caused her to represent to the hospital and also is complicated by weakness and anorexia and all of the above was discussed in detail with the patient and surgical consultants. The patient is aware and in agreement with the above plan of action. Karol Banks MD MTDD
[2017-06-20] MEDS: metroNIDAZOLE IV 500 mg/100 ml 500 MG/100 ML BAG IVPB SCH ×3 (06:29→21:34)
--- NOTE | 2017-06-20 07:58 | CP.PCM.PN ---
Subjective - Date & Time of Evaluation Date of Evaluation: 06/20/17 Time of Evaluation: 07:56 - Subjective Subjective: General Surgery Progress note for Dr. Calvillo PT S&E at bedside. SILVER. Patient states she feels tired and does not have an appetite. Patient states she hopes she can go home in a couple of days. Patient denies Fever, Chills, abdominal pain, N/V, diarrhea Objective - Vital Signs/Intake and Output Vital Signs (last 24 hours): Temp Pulse Resp BP Pulse Ox 97.9 F 78 18 119/70 98 06/20/17 00:25 06/20/17 00:25 06/20/17 00:25 06/20/17 00:25 06/20/17 00:25 Intake and Output: 06/20/17 06/20/17 06:59 18:59 Intake Total 240 Balance 240 - Medications Medications: Current Medications Acetaminophen (Tylenol 325mg Tab) 650 mg PO Q6H PRN PRN Reason: Pain, moderate (4-7) Docusate Sodium (Colace) 100 mg PO DAILY JEANCARLOS Famotidine (Pepcid) 40 mg PO HS [facility] Last Admin: 06/19/17 21:36 Dose: 40 mg Dextrose/Sodium Chloride (Dextrose 5%/0.45% Ns 1000 Ml) 1,000 mls @ 100 mls/hr IV .Q10H [facility] Last Admin: 06/20/17 02:57 Dose: Not Given Metronidazole (Flagyl) 500 mg in 100 mls @ 100 mls/hr IVPB Q8 JEANCARLOS PRN Reason: Protocol Last Admin: 06/20/17 06:29 Dose: 100 mls/hr Ceftriaxone Sodium (Rocephin 1 Gram Ivpb) 1 gm in 100 mls @ 100 mls/hr IVPB DAILY JEANCARLOS PRN Reason: Protocol Last Admin: 06/19/17 17:07 Dose: 100 mls/hr Nitroglycerin (Nitro-Bid 2% Oint) 1 ea TOP Q4H PRN PRN Reason: Other Ondansetron HCl (Zofran Inj) 4 mg IVP Q6H PRN PRN Reason: Nausea/Vomiting - Labs Labs: PT 12.6 Seconds (9.9-11.8) H 06/19/17 11:41 INR 1.17 (0.93-1.08) H 06/19/17 11:41 APTT 38.7 Seconds (23.7-30.8) H 06/19/17 11:41 - Constitutional Appears: Non-toxic - Head Exam Head Exam: NORMAL INSPECTION - Eye Exam Eye Exam: EOMI, Normal appearance - ENT Exam ENT Exam: Mucous Membranes Moist - Neck Exam Neck Exam: Full ROM, Normal Inspection - Respiratory Exam Respiratory Exam: NORMAL BREATHING PATTERN. absent: Accessory Muscle Use, Respiratory Distress - Cardiovascular Exam Cardiovascular Exam: REGULAR RHYTHM. absent: Bradycardia, Tachycardia - GI/Abdominal Exam GI & Abdominal Exam: Soft, Normal Bowel Sounds. absent: Tenderness, Pulsatile Mass, Rebound - Extremities Exam Extremities Exam: Full ROM, Normal Inspection. absent: Pedal Edema - Neurological Exam Neurological Exam: Alert, Awake, Oriented x3 - Psychiatric Exam Psychiatric exam: Normal Affect, Normal Mood - Skin Skin Exam: Dry, Normal Color, Warm Assessment and Plan - Assessment and Plan (Free Text) Assessment: 47F presents with poor appetite w/ PMH significant for diverticulitis Plan: No abdominal pain c/w FLD- advance diet as tolerated OOBTC Ambulate Recommend Physical therapy no surgical intervention at this time d/w Dr. Rajinder Spence, DO PGY1
[2017-06-20] MEDS: cefTRIAXone 1 gm 1 GM/100 ML BAG IVPB SCH (10:12)
[2017-06-20] MEDS ORDERED: HYDROmorphone 0.5 mg/0.5 ml ISec IVP STA (11:18)
[2017-06-20] MEDS ORDERED: Barium Sulfate Susp 2.1% w/v, 2.0% w/w 450 mL Bottle PO ONE (11:38)
--- NOTE | 2017-06-20 11:57 | CP.PCM.CON ---
<Renuka Nevarez - Last Filed: 06/20/17 11:50> History of Present Illness - History of Present Illness History of Present Illness: Seen and examined at the bedside earlier today., The chart was reviewed. Request for GI consultation for abdominal pain, recent acute diverticulitis. HPI: This is a 47-year-old obese female who was recently discharged on oral antibiotics from [facility] with acute diverticulitis, returns complaining that she is unable able to tolerate fluids or solid foods, complains of generalized weakness and no appetite. she attempted to go grocery shopping and was unable to ambulate, complaining that her abdomen felt heavy. Denies any shortness of breath, chest pain or any fever or chills, nausea, or vomiting. On admission she had an abdominal x-ray which was negative for any acute findings. She is moving her bowels, had soft BM, no melena or bright red blood per rectum. She attempted to consume some apple juice but explained that it tasted funny. ppast medical history: Recent diverticulitis, obesity left-sided sciatica Surgical history: Denies, no EGD or colon SOCIAL HISTORY: DENIES SMOKING OR ALCOHOL FAMILY HISTORY: mother had bone cancer Allergies: No known drug allergies Medications: Patient was DC'd on Keflex 500 mg by mouth 3 times a day and Flagyl 500 mg by mouth 3 times a day for 10 day therapy ROS: Systems reviewed with positive finding see HPI Past Patient History - Infectious Disease Hx of Infectious Diseases: None - Tetanus Immunizations Tetanus Immunization: Unknown - Past Social History Smoking Status: Never Smoked - CARDIAC Hx Cardiac Disorders: No - PULMONARY Hx Respiratory Disorders: No - NEUROLOGICAL Hx Neurological Disorder: No - HEENT Hx HEENT Problems: No - RENAL Hx Chronic Kidney Disease: No - ENDOCRINE/METABOLIC Hx Endocrine Disorders: No - HEMATOLOGICAL/ONCOLOGICAL Hx Blood Disorders: No - INTEGUMENTARY Hx Dermatological Problems: No - MUSCULOSKELETAL/RHEUMATOLOGICAL Hx Musculoskeletal Disorders: Yes Other/Comment: scica left side - GASTROINTESTINAL Hx Diverticulitis: Yes - GENITOURINARY/GYNECOLOGICAL Hx Genitourinary Disorders: No - PSYCHIATRIC Hx Psychophysiologic Disorder: No Hx Substance Use: No - SURGICAL HISTORY Hx Surgeries: No Meds Allergies/Adverse Reactions: Allergies Allergy/AdvReac Type Severity Reaction Status Date / Time No Known Allergies Allergy Verified 06/19/17 10:22 - Medications Medications: Current Medications Acetaminophen (Tylenol 325mg Tab) 650 mg PO Q6H PRN PRN Reason: Pain, moderate (4-7) Docusate Sodium (Colace) 100 mg PO DAILY [facility] Last Admin: 06/20/17 10:10 Dose: 100 mg Famotidine (Pepcid) 40 mg PO HS [facility] Last Admin: 06/19/17 21:36 Dose: 40 mg Dextrose/Sodium Chloride (Dextrose 5%/0.45% Ns 1000 Ml) 1,000 mls @ 100 mls/hr IV .Q10H [facility] Last Admin: 06/20/17 02:57 Dose: Not Given Metronidazole (Flagyl) 500 mg in 100 mls @ 100 mls/hr IVPB Q8 [facility] PRN Reason: Protocol Last Admin: 06/20/17 06:29 Dose: 100 mls/hr Ceftriaxone Sodium (Rocephin 1 Gram Ivpb) 1 gm in 100 mls @ 100 mls/hr IVPB DAILY [facility] PRN Reason: Protocol Last Admin: 06/20/17 10:12 Dose: 100 mls/hr Nitroglycerin (Nitro-Bid 2% Oint) 1 ea TOP Q4H PRN PRN Reason: Other Ondansetron HCl (Zofran Inj) 4 mg IVP Q6H PRN PRN Reason: Nausea/Vomiting Last Admin: 06/20/17 10:11 Dose: 4 mg Physical Exam - Constitutional Appears: No Acute Distress - Head Exam Head Exam: NORMOCEPHALIC - Eye Exam Eye Exam: Normal appearance. absent: Scleral icterus - ENT Exam ENT Exam: Mucous Membranes Moist - Neck Exam Neck exam: Positive for: Normal Inspection - Respiratory Exam Respiratory Exam: Clear to Auscultation Bilateral, NORMAL BREATHING PATTERN. absent: Respiratory Distress - Cardiovascular Exam Cardiovascular Exam: +S1, +S2 - GI/Abdominal Exam GI & Abdominal Exam: Normal Bowel Sounds, Soft, Tenderness. absent: Distended, Guarding, Rebound Additional comments: left lower quadrant on deep palpation - Extremities Exam Extremities exam: Positive for: pedal pulses present. Negative for: calf tenderness, pedal edema - Neurological Exam Neurological exam: Alert, Oriented x3 - Skin Skin Exam: Dry, Warm Results - Vital Signs Recent Vital Signs: Last Vital Signs Temp 98.5 F 06/20/17 08:00 Pulse 77 06/20/17 08:00 Resp 18 06/20/17 08:00 BP 128/78 06/20/17 08:00 Pulse Ox 99 06/20/17 08:00 - Labs Result Diagrams: 06/19/17 11:41 06/19/17 11:41 Assessment & Plan - Assessment and Plan (Free Text) Assessment: Assessment: Recent diverticulitis Obesity History of sciatica Anorexia Generalized weakness Plan: Discussed with patient, since she has left lower quadrant pain unable to stop all rate oral intake we will request for CT scan of abdomen and pelvis with IV and oral contrast. Continue IV fluids Continue GI prophylaxis, she is on Pepcid Patient is on IV antibiotics of Rocephin and Flagyl Currently on full liquid as per surgery Thank you for this consult and for allowing us to participate in your patient's care, will make further recommendation after review of CT scan. Seen and discussed with Dr. Jimenez <Jessica Jimenez V - Last Filed: 06/20/17 22:33> Meds - Medications Medications: Current Medications Acetaminophen (Tylenol 325mg Tab) 650 mg PO Q6H PRN PRN Reason: Pain, moderate (4-7) Docusate Sodium (Colace) 100 mg PO DAILY JEANCARLOS Last Admin: 06/20/17 10:10 Dose: 100 mg Famotidine (Pepcid) 40 mg PO HS [facility]ARLOS Last Admin: 06/20/17 21:34 Dose: 40 mg Hydromorphone HCl (Dilaudid) 0.5 mg IVP Q6H PRN PRN Reason: Pain, severe (8-10) Dextrose/Sodium Chloride (Dextrose 5%/0.45% Ns 1000 Ml) 1,000 mls @ 100 mls/hr IV .Q10H [facility]ARL[facility] Last Admin: 06/20/17 19:00 Dose: 100 mls/hr Metronidazole (Flagyl) 500 mg in 100 mls @ 100 mls/hr IVPB Q8 JEANCARLOS PRN Reason: Protocol Last Admin: 06/20/17 21:34 Dose: 100 mls/hr Ceftriaxone Sodium (Rocephin 1 Gram Ivpb) 1 gm in 100 mls @ 100 mls/hr IVPB DAILY JEANCARLOS PRN Reason: Protocol Last Admin: 06/20/17 10:12 Dose: 100 mls/hr Nitroglycerin (Nitro-Bid 2% Oint) 1 ea TOP Q4H PRN PRN Reason: Other Ondansetron HCl (Zofran Inj) 4 mg IVP Q6H PRN PRN Reason: Nausea/Vomiting Last Admin: 06/20/17 10:11 Dose: 4 mg Results - Vital Signs Recent Vital Signs: Last Vital Signs Temp 97.8 F 06/20/17 16:08 Pulse 85 06/20/17 16:08 Resp 20 06/20/17 16:08 BP 124/76 06/20/17 16:08 Pulse Ox 98 06/20/17 16:08 - Labs Result Diagrams: 06/19/17 11:41 06/19/17 11:41 Attending/Attestation - Attestation I have personally seen and examined this patient.: Yes I have fully participated in the care of the patient.: Yes I have reviewed all pertinent clinical information: Yes Notes (Text): This patient was seen and evaluated earlier. This is an addendum to the GI Consult report dictated by Renuka Vazquez's [employer] Patient is well known to our service. Recently discharged from the hospital following treatment for acute diverticulitis with the mesenteric involvement with involvement of the small bowel area. On examination abdomen soft, some mild tenderness present in the left-sided abdomen no rebound or guarding The CT review appears slightly better than the previous CT findings. However patient Still has significant inflammation and significant thickening of the segment of the colonWith the adjacent mesenteric inflammatory changes.. Will continue liquid diet and slowly advance the diet. Continue PPI. If the patient continues to have nausea and dyspeptic symptoms would consider upper GI endoscopy 06/20/17 22:27
[2017-06-20] MEDS ORDERED: Iohexol 350 MG/100 ML VIAL ONE (14:41)
--- NOTE | 2017-06-20 15:13 | CT ---
PROCEDURE: CT Abdomen and Pelvis with contrast HISTORY: recent diverticulitis/ nausea/poor appetite COMPARISON: CT 06/10/2017 TECHNIQUE: Contrast dose: 100 cc of Omni 350 Radiation dose: Total exam DLP = 1657 mGy-cm. This CT exam was performed using one or more of the following dose reduction techniques: Automated exposure control, adjustment of the mA and/or kV according to patient size, and/or use of iterative reconstruction technique. FINDINGS: LOWER THORAX: Unremarkable. LIVER: Unremarkable. No gross lesion or ductal dilatation. GALLBLADDER AND BILE DUCTS: Unremarkable. PANCREAS: Unremarkable. No gross lesion or ductal dilatation. SPLEEN: Unremarkable. ADRENALS: Unremarkable. No mass. KIDNEYS AND URETERS: Unremarkable. No hydronephrosis. No solid mass. VASCULATURE: Unremarkable. No aortic aneurysm. BOWEL: There is diverticulitis in the descending colon with mural thickening and mesenteric inflammation. The pattern is similar but less severe than the previous study 06/10/2017 APPENDIX: Normal appendix. PERITONEUM: Unremarkable. No free fluid. No free air. LYMPH NODES: Unremarkable. No enlarged lymph nodes. BLADDER: Unremarkable. REPRODUCTIVE: There is a 7 x 8.7 cm fibroid BONES: No acute fracture. OTHER FINDINGS: None. IMPRESSION: There is diverticulitis in the descending colon with mural thickening and mesenteric inflammation. The pattern is similar but less severe than the previous study 06/10/2017
[2017-06-20] MEDS ORDERED: HYDROmorphone 0.5 mg/0.5 ml ISec IVP PRN (16:04)
--- NOTE | 2017-06-20 16:27 | PN ---
DATE: 06/20/2017 SUBJECTIVE: This is a 47-year-old female who was examined at her bedside in the presence of her nurse Luna and the case was then reviewed in detail with herself, nursing and co-consultants. She was admitted with abdominal pain, dehydration, weakness, deconditioning, and inability to eat with persistent anorexia, having recently been hospitalized with left lower colon diverticulitis. The patient at present is lying in her bed. She states she still has no appetite. She is on clear liquids. There have been no reports of vomiting and she did have a small, brown, bowel movement earlier today that was formed and without any mucus or blood. PHYSICAL EXAMINATION: VITAL SIGNS: Temperature is 98.5, respirations 18, pulse 77, and blood pressure 128/78 with a pulse ox of 99% on room air. HEENT: Head is normocephalic, atraumatic. Eyes; no icterus. Ears, clear. Throat, non-injected. NECK: Supple. HEART: Regular rate S1 and S2. LUNGS: Clear. ABDOMEN: Obese, nontender without palpable organomegaly. No rebound or guarding. No tenderness. There is some mild left lower quadrant discomfort on deep palpation. EXTREMITIES: No clubbing, no cyanosis, no edema. SKIN: Without rash. NEUROLOGICAL: Unchanged. PSYCHOLOGICAL: Alert. VASCULAR: Legs warm to touch. LABORATORY DATA: White count 10,200, hemoglobin 13.2, hematocrit 39.1, platelets 409,000. PT INR 1.17, PTT 38.7. Sodium 136, potassium 4.2, chloride 97, bicarb 27, BUN 4, creatinine 0.5. Random blood sugar 87, bilirubin 0.7, AST 24, ALT 24, alkaline phosphatase 92, lipase 124. Urinalysis few bacteria. Microbiology, urine culture no growth. IMPRESSION: This is a 47-year-old female with obesity and diverticulitis, now admitted with anorexia, dehydration, and failure to thrive and history of left colon diverticulitis. PLAN: At present is to continue Colace 100 mg p.o. daily, D5 0.45 saline at 100 mL per hour. She has been ordered to receive Dilaudid 0.5 mg IV stat by Dr. Jimenez from GI regarding her abdominal pain and is also receiving Flagyl 500 mg IV q.8, Rocephin 1 g IV q.24, Pepcid 40 mg p.o. at bedtime, and Zofran 4 mg IV q.6 hours p.r.n. nausea or vomiting. The patient has been ordered to receive an abdominal pelvic CT with oral and IV contrast by Dr. Jimenez from GI regarding further evaluation of diverticulitis, nausea, and poor p.o. intake. She continues on clear liquids. She is wearing antiembolism stocking. She is on fall precautions and has been advised to ambulate with assistance out of bed to chair. All of the above was reviewed in detail with the patient, nursing, and co-consultants. All questions were answered and overall prognosis remains stable. Karol Banks MD MTDD
[2017-06-21] MEDS: Dextrose 5%/0.45% NS 1,000 ML IV SCH ×2 (05:46→05:48)
[2017-06-21] MEDS: metroNIDAZOLE IV 500 mg/100 ml 500 MG/100 ML BAG IVPB SCH ×3 (05:46→21:13)
[2017-06-21] MEDS: cefTRIAXone 1 gm 1 GM/100 ML BAG IVPB SCH (09:56)
--- NOTE | 2017-06-21 14:03 | CP.PCM.PN ---
<Renuka Nevarez - Last Filed: 06/21/17 18:47> Subjective - Date & Time of Evaluation Date of Evaluation: 06/21/17 Time of Evaluation: 10:30 - Subjective Subjective: seen and examined at the bedside earlier today. Chart was reviewed. CT scan report was reviewed, patient still noted to have diverticulitis but with improvement compared to previous CAT scan. Patient denies nausea, she still unable to taste the liquids are even water, states that it tasted funny. Abdominal pain is improved. Having bowel movement, no diarrhea, does complain of feeling gassy. No reports of bleeding, fever, chills. Objective - Vital Signs/Intake and Output Vital Signs (last 24 hours): Temp Pulse Resp BP Pulse Ox 98.7 F 75 18 118/74 96 06/21/17 08:00 06/21/17 08:00 06/21/17 08:00 06/21/17 08:00 06/21/17 08:00 Intake and Output: 06/21/17 06/21/17 06:59 18:59 Intake Total 780 Balance 780 - Medications Medications: Current Medications Acetaminophen (Tylenol 325mg Tab) 650 mg PO Q6H PRN PRN Reason: Pain, moderate (4-7) Docusate Sodium (Colace) 100 mg PO DAILY [facility] Last Admin: 06/21/17 09:56 Dose: 100 mg Famotidine (Pepcid) 40 mg PO HS [facility] Last Admin: 06/20/17 21:34 Dose: 40 mg Hydromorphone HCl (Dilaudid) 0.5 mg IVP Q6H PRN PRN Reason: Pain, severe (8-10) Dextrose/Sodium Chloride (Dextrose 5%/0.45% Ns 1000 Ml) 1,000 mls @ 100 mls/hr IV .Q10H [facility] Last Admin: 06/21/17 05:48 Dose: 100 mls/hr Metronidazole (Flagyl) 500 mg in 100 mls @ 100 mls/hr IVPB Q8 [facility] PRN Reason: Protocol Last Admin: 06/21/17 13:12 Dose: 100 mls/hr Ceftriaxone Sodium (Rocephin 1 Gram Ivpb) 1 gm in 100 mls @ 100 mls/hr IVPB DAILY [facility] PRN Reason: Protocol Last Admin: 06/21/17 09:56 Dose: 100 mls/hr Nitroglycerin (Nitro-Bid 2% Oint) 1 ea TOP Q4H PRN PRN Reason: Other Ondansetron HCl (Zofran Inj) 4 mg IVP Q6H PRN PRN Reason: Nausea/Vomiting Last Admin: 06/20/17 10:11 Dose: 4 mg - Labs Labs: PT 12.6 Seconds (9.9-11.8) H 06/19/17 11:41 INR 1.17 (0.93-1.08) H 06/19/17 11:41 APTT 38.7 Seconds (23.7-30.8) H 06/19/17 11:41 - Constitutional Appears: No Acute Distress - Head Exam Head Exam: NORMOCEPHALIC - Eye Exam Eye Exam: Normal appearance. absent: Scleral icterus - ENT Exam ENT Exam: Mucous Membranes Moist - Neck Exam Neck Exam: Normal Inspection - Respiratory Exam Respiratory Exam: Clear to Ausculation Bilateral, NORMAL BREATHING PATTERN. absent: Respiratory Distress - Cardiovascular Exam Cardiovascular Exam: +S1, +S2 - GI/Abdominal Exam GI & Abdominal Exam: Soft, Normal Bowel Sounds. absent: Guarding, Tenderness, Organomegaly, Rebound - Extremities Exam Extremities Exam: Normal Capillary Refill. absent: Calf Tenderness, Pedal Edema - Neurological Exam Neurological Exam: Alert, Awake, Oriented x3 Assessment and Plan - Assessment and Plan (Free Text) Assessment: Assessment: Diverticulitis, improving as evident on CT scan, patient no abdominal pain and nausea improved Obesity History of sciatica Anorexia Generalized weakness Plan: advance diet to pure low residual heart healthy diet Continue IV fluids Continue GI prophylaxis, she is on Pepcid On stool softeners Patient is on IV antibiotics of Rocephin and Flagyl out of bed/Ambulating in the [facility] Outpatient colonoscopy when diverticulitis has completely resolved prior to surgical intervention. Seen and discussed with Dr. Jimenez <Jessica Jimenez V - Last Filed: 06/21/17 23:11> Objective - Vital Signs/Intake and Output Vital Signs (last 24 hours): Temp Pulse Resp BP Pulse Ox 98.7 F 84 18 124/71 97 06/21/17 16:00 06/21/17 16:00 06/21/17 16:00 06/21/17 16:00 06/21/17 16:00 Intake and Output: 06/21/17 06/22/17 18:59 06:59 Intake Total 420 600 Balance 420 600 - Medications Medications: Current Medications Acetaminophen (Tylenol 325mg Tab) 650 mg PO Q6H PRN PRN Reason: Pain, moderate (4-7) Docusate Sodium (Colace) 100 mg PO DAILY [facility] Last Admin: 06/21/17 09:56 Dose: 100 mg Famotidine (Pepcid) 40 mg PO HS [facility] Last Admin: 06/21/17 21:13 Dose: 40 mg Hydromorphone HCl (Dilaudid) 0.5 mg IVP Q6H PRN PRN Reason: Pain, severe (8-10) Dextrose/Sodium Chloride (Dextrose 5%/0.45% Ns 1000 Ml) 1,000 mls @ 100 mls/hr IV .Q10H [facility] Last Admin: 06/21/17 05:48 Dose: 100 mls/hr Metronidazole (Flagyl) 500 mg in 100 mls @ 100 mls/hr IVPB Q8 [facility] PRN Reason: Protocol Last Admin: 06/21/17 21:13 Dose: 100 mls/hr Ceftriaxone Sodium (Rocephin 1 Gram Ivpb) 1 gm in 100 mls @ 100 mls/hr IVPB DAILY [facility] PRN Reason: Protocol Last Admin: 06/21/17 09:56 Dose: 100 mls/hr Nitroglycerin (Nitro-Bid 2% Oint) 1 ea TOP Q4H PRN PRN Reason: Other Ondansetron HCl (Zofran Inj) 4 mg IVP Q6H PRN PRN Reason: Nausea/Vomiting Last Admin: 06/20/17 10:11 Dose: 4 mg - Labs Labs: PT 12.6 Seconds (9.9-11.8) H 06/19/17 11:41 INR 1.17 (0.93-1.08) H 06/19/17 11:41 APTT 38.7 Seconds (23.7-30.8) H 06/19/17 11:41 Attending/Attestation - Attestation I have personally seen and examined this patient.: Yes I have fully participated in the care of the patient.: Yes I have reviewed all pertinent clinical information, including history, physical exam and plan: Yes Notes (Text): this patient was seen and evaluated earlier. This is an addendum to the EG a progress report dictated by Renuka Neely APN. Patient has a poor of by mouth intake. He sees no taste. On examination abdomen soft there was minimal tenderness on deep palpation on the left-side patient wouldn't refill from a rectal colonoscopy and surgery 06/21/17 22:46
--- NOTE | 2017-06-21 20:34 | PN ---
DATE: 06/21/2017 SUBJECTIVE: This 47-year-old female was examined at her bedside. Her case was reviewed in detail with herself, nursing, and co-consultants including Gastroenterology. The patient was found on repeat CT of the abdomen and pelvis to have diverticulitis improving on the current CT but persistent in her left lower colon without evidence of obstruction or perforation at this time. The patient refuses to drink fluid, states she feel nauseous and queasy when she does and also states that the liquid diet tastes funny to her. She is receiving IV fluid, IV antibiotics and she states that she had no bowel movement today but a small soft slightly watery bowel movement yesterday. She denies fevers, chills, chest pain, or shortness of breath and there was no reports of vomiting or hematemesis or melena today. PHYSICAL EXAMINATION: VITAL SIGNS: Temperature is 98.7, respirations 18, pulse 75, and blood pressure 118/74 with a pulse ox of 96% on room air. HEENT: Head is normocephalic, atraumatic. Eyes; no icterus. Ears, clear. Throat, non-injected. NECK: Supple. HEART: Regular S1 and S2. LUNGS: Clear to auscultation. ABDOMEN: Obese, nontender. There is no palpable organomegaly. No rebound. No guarding. No tenderness. EXTREMITIES: Showed no edema. SKIN: Without rash. NEUROLOGICAL: Intact. PSYCHOLOGICAL: Alert and oriented x3. VASCULAR: Legs were warm to touch. LABORATORY DATA: Her stool C difficile toxin antigen and toxin were both negative. Her blood culture showed no growth after 48 hours and urine culture showed no growth at present. Additional labs, white count 10,200, hemoglobin 13.2, hematocrit 39.1, platelets 409,000. PT INR 1.17, PTT 38.7. Sodium 136, potassium 4.2, chloride 97, bicarb 27, BUN 4, creatinine 0.5. Random blood sugar is 87, bilirubin 0.7, AST 24, ALT 24, alkaline phosphatase 92, lipase 124. Urinalysis showed few bacteria but urine culture was negative. IMPRESSION: This is a 47-year-old female with morbid obesity with persistent diverticulitis and anorexia and deconditioning. PLAN: The plan at present is to continue IV fluids with D5 0.45 saline at 100 mL per hour. Colace 100 mg p.o. daily. Dilaudid has been ordered at 0.5 mg IV q. 6 hours p.r.n. severe pain and the patient has not required any medication thus far today as per nursing. She is also receiving Rocephin 1 gm IV q. 24, Flagyl 500 mg IV q.8, nitroglycerin to chest wall q. 4 hours p.r.n. accelerated hypertension should her blood pressure systolic be greater than 160 or her diastolic blood pressure be greater than 100. Pepcid 40 mg p.o. at bedtime and Tylenol 650 p.o. q. 6 hours p.r.n. fever or mild pain. Her diet will be adjusted by GI based on their recommendations. She is wearing anti-embolism stockings. She continues to be monitored for fall precautions and has been ordered to be out of bed to chair. There is no indication for surgery at this moment in time. She will be monitored closely as to her ability to ambulate and tolerate a full diet and all the above was discussed in detail with the patient, her nurse, co-consultants.Greater than fifty minutes was spent in the care and management of this patient today. Karol Banks MD MTDD
[2017-06-22] MEDS: metroNIDAZOLE IV 500 mg/100 ml 500 MG/100 ML BAG IVPB SCH ×3 (05:39→21:10)
[2017-06-22] MEDS: cefTRIAXone 1 gm 1 GM/100 ML BAG IVPB SCH (09:29)
[2017-06-22] MEDS: Dextrose 5%/0.45% NS 1,000 ML IV SCH (09:30)
[2017-06-22] MEDS ORDERED: POLYETHYLENE GLYCOL 3350 17 GM/Dose PACKET PO ONE (11:53)
--- NOTE | 2017-06-22 14:41 | PN ---
DATE: 06/22/2017 SUBJECTIVE: This 47-year-old female was examined at her bedside. Her case was reviewed in detail with herself. Her nurse [place], and co-consultants and gastroenterology. The patient remains weak and deconditioned. She is unable to tolerate any p.o. food or fluid because of persistent nausea and required Zofran injection earlier this morning because of nausea with vomiting. She denies any fever or chills. There have been no reports of hematemesis or melena and she continues to have small, brown, bowel movements with recent stool C. difficile toxin negative. The patient's repeat CT of the abdomen shows slowly improving, but persistent left colon diverticulitis and she is receiving parenteral antibiotics at this time. Despite the fact that gastroenterology advanced her diet, she has not attempted to try any solid food because of persistent nausea and anorexia and also will not drink any fluid other than water to take her oral pills. PHYSICAL EXAMINATION: VITAL SIGNS: Temperature is 98.3, respirations 20, pulse 80, and blood pressure 142/88 with a pulse ox of 96% on room air. HEENT: Head is normocephalic, atraumatic. Eyes; no icterus. Ears, clear. Throat, non-injected. NECK: Supple. HEART: Regular S1 and S2. LUNGS: Clear. ABDOMEN: Obese, nontender without palpable organomegaly. No rebound, no guarding, no tenderness. EXTREMITIES: Showed no clubbing. No cyanosis. No edema. SKIN: Without rash. NEUROLOGICAL: Intact. PSYCHOLOGICAL: Alert and oriented x3. VASCULAR: Legs are warm to touch. LABORATORY DATA: White count 10,200, hemoglobin 13.2, hematocrit 39.1, platelets 409,000. PT/INR 1.17, PTT 38.7. Sodium 136, potassium 4.2, chloride 97, bicarb 27, BUN 4, creatinine 0.5, random blood sugar 87, bilirubin 0.7, AST 24, ALT 24, alkaline phosphatase 92, lipase 124. Urinalysis showed few bacteria. Urine cultures shows no growth. Blood culture shows no growth and C. difficile toxin antigen and toxin were both negative. Abdominal pelvic CT reviewed by Dr. Mccarty from Radiology showed diverticulitis in the descending colon with mural thickening and mesenteric inflammation similar, but less severe than previous study of 06/10/2017. IMPRESSION: This is a 47-year-old female with morbid obesity with left colon diverticulitis, now with nausea, anorexia, and failure to thrive, who was requiring both IV fluids and IV antibiotics for treatment of her diverticulitis, who is unable to tolerate clear liquids or soft bland diet as recommended by gastroenterology. PLAN: At present is to have reevaluation with Dr. Jessica Jimenez regarding all of the above. This was discussed with the patient and her nurse at the bedside. She will continue on D5 at 0.45 saline at 100 mL per hour, Colace 100 mg p.o. daily, Flagyl 500 mg IV q. 8 hours, Rocephin 1 g IV q. 24 hours, Pepcid 40 mg p.o. at bedtime, Zofran 4 mg IV q. 6 hours p.r.n. nausea and vomiting. She has been ordered to receive MiraLax 17 g p.o. daily by Dr. Jimenez from . Her diet has been changed to n.p.o. She is wearing antiembolism stockings and remains on fall precautions. She is ordered to be out of bed to chair with assistance. I have ordered basic metabolic panel and CBC for the a.m. There were no immediate plans for surgical intervention at this time in the setting of improving diverticulitis on CAT scan and the patient will be followed and medications and diet adjusted by Dr. Jessica Jimenez from . All of the above was discussed in detail with the patient and her nurse present. All questions were answered. Karol Banks MD MTDMelissa
[2017-06-22] MEDS ORDERED: Benzocaine/Butamben/Tetracai 14-2-2% TOP Spray TOP ONE (17:34)
[2017-06-22] MEDS ORDERED: Propofol 10 mg/ml Inj (20 ML) ONE (17:37)
[2017-06-22] MEDS ORDERED: Phenylephrine 10 mg/ml Inj ONE (17:47)
[2017-06-22] MEDS: Sodium Chloride 0.9% 1,000 ML IV SCH (21:10)
[2017-06-23] MEDS: Sodium Chloride 0.9% 1,000 ML IV SCH (05:05)
[2017-06-23] MEDS: metroNIDAZOLE IV 500 mg/100 ml 500 MG/100 ML BAG IVPB SCH ×3 (05:05→22:32)
[2017-06-23 07:14] LABS: HEMATOCRIT 35.6 % (36.0-48.0); MEAN CELL VOLUME 88.8 fl (80.0-105.0); MEAN CORPUSCULAR HEMOGLOBIN 29.7 pg (25.0-35.0); MEAN CORPUSCULAR HGB CONC 33.4 g/dl (31.0-37.0); MEAN PLATELET VOLUME 9.7 fl (7.0-11.0); RED CELL DISTRIBUTION WIDTH 12.5 % (11.5-14.5); WHITE BLOOD COUNT 7.4 10^3/ul (4.5-11.0)
[2017-06-23 07:24] LABS: CARBON DIOXIDE 25 mmol/L (21-33); CHLORIDE 105 mmol/L (98-107); GFR AFRICAN-AMERICAN > 60; GLUCOSE,RANDOM 85 mg/dL (70-110); POTASSIUM 3.4 mmol/L (3.6-5.0); SODIUM 141 mmol/L (132-148)
[2017-06-23 07:31] LABS: BLOOD UREA NITROGEN < 2 mg/dL (7-21)
[2017-06-23] MEDS ORDERED: Potassium Chloride 20 mEq ER Tab PO ONE (10:17)
[2017-06-23] MEDS: cefTRIAXone 1 gm 1 GM/100 ML BAG IVPB SCH (10:28)
[2017-06-23] MEDS: POLYETHYLENE GLYCOL 3350 17 GM/Dose PACKET PO SCH (10:28)
[2017-06-23] MEDS ORDERED: Dextrose 5%/0.45% NS 1,000 ML IV SCH (10:30)
--- NOTE | 2017-06-23 16:57 | CP.PCM.PN ---
<Tony,Kovil V - Last Filed: 06/23/17 23:15> Objective - Vital Signs/Intake and Output Vital Signs (last 24 hours): Temp Pulse Resp BP Pulse Ox 98.6 F 85 16 98/46 L 98 06/23/17 16:00 06/23/17 16:00 06/23/17 16:00 06/23/17 16:00 06/23/17 16:00 - Medications Medications: Current Medications Acetaminophen (Tylenol 325mg Tab) 650 mg PO Q6H PRN PRN Reason: Pain, moderate (4-7) Famotidine (Pepcid) 40 mg PO HS [facility] Last Admin: 06/23/17 22:30 Dose: 40 mg Metronidazole (Flagyl) 500 mg in 100 mls @ 100 mls/hr IVPB Q8 [facility] PRN Reason: Protocol Last Admin: 06/23/17 22:32 Dose: 100 mls/hr Ceftriaxone Sodium (Rocephin 1 Gram Ivpb) 1 gm in 100 mls @ 100 mls/hr IVPB DAILY [facility] PRN Reason: Protocol Last Admin: 06/23/17 10:28 Dose: 100 mls/hr Dextrose/Sodium Chloride (Dextrose 5%/0.45% Ns 1000 Ml) 1,000 mls @ 100 mls/hr IV .Q10H [facility] Last Admin: 06/23/17 12:50 Dose: 100 mls/hr Nitroglycerin (Nitro-Bid 2% Oint) 1 ea TOP Q4H PRN PRN Reason: Other Ondansetron HCl (Zofran Inj) 4 mg IVP Q6H PRN PRN Reason: Nausea/Vomiting Last Admin: 06/22/17 09:30 Dose: 4 mg Polyethylene Glycol (Miralax) 17 gm PO DAILY [facility] Last Admin: 06/23/17 10:28 Dose: Not Given - Labs Labs: 06/23/17 06:45 06/23/17 06:45 PT 12.6 Seconds (9.9-11.8) H 06/19/17 11:41 INR 1.17 (0.93-1.08) H 06/19/17 11:41 APTT 38.7 Seconds (23.7-30.8) H 06/19/17 11:41 Attending/Attestation - Attestation I have personally seen and examined this patient.: Yes I have fully participated in the care of the patient.: Yes I have reviewed all pertinent clinical information, including history, physical exam and plan: Yes Notes (Text): This is an addendum to GI progress report dictated by Renuka Nevarez APN.The patient was seen and examined earlier. Medical records, lab studies, imagings were reviewed. Last 24 hours events reviewed. Agreed with the above treatment plan as outlined in Renuka Nevarez NP's notes the with the addition of the following this patient has significantly reduced by mouth intake was solid and liquids EGD did not reveal any obstructive features significant pathology. Slightly distal gastric motility noticed it. On examination today abdomen soft with some mild tenderness present in the left side of the abdomen. There is no rebound or guarding Plan history surgical nnote reviewed. No plan for surgical intervention Encourage by mouth intake reason for reduced by mouth intake is not clear colonoscopy has high risk in view of l recent diverticulitis with microperforation and would await at least for 3-4 weeks before colonoscopy for evaluation. I will discuss with the surgical team again discussed with Dr. Banks 06/23/17 23:21 <Renuka Nevarez - Last Filed: 06/24/17 13:14> Subjective - Date & Time of Evaluation Date of Evaluation: 06/23/17 Time of Evaluation: 09:50 - Subjective Subjective: Seen and examined at the bedside earlier today, the chart was reviewed. Patient had endoscopy yesterday for ongoing nausea and unable to tolerate oral intake. She was found to have chronic gastritis, biopsies obtained. This morning patient denies nausea, is having bowel movements, no reports of bleeding denies any abdominal pain only when standing up and Ambulating. She describes it as a heavy feeling on the left lower quadrant. No fever or chills. Objective - Vital Signs/Intake and Output Vital Signs (last 24 hours): Temp Pulse Resp BP Pulse Ox 98.7 F 84 20 113/65 98 06/23/17 08:17 06/23/17 08:17 06/23/17 08:17 06/23/17 08:17 06/23/17 08:17 Intake and Output: 06/23/17 06/23/17 06:59 18:59 Intake Total 480 Balance 480 - Medications Medications: Current Medications Acetaminophen (Tylenol 325mg Tab) 650 mg PO Q6H PRN PRN Reason: Pain, moderate (4-7) Famotidine (Pepcid) 40 mg PO HS [facility] Last Admin: 06/22/17 21:10 Dose: 40 mg Metronidazole (Flagyl) 500 mg in 100 mls @ 100 mls/hr IVPB Q8 [facility] PRN Reason: Protocol Last Admin: 06/23/17 13:43 Dose: 100 mls/hr Ceftriaxone Sodium (Rocephin 1 Gram Ivpb) 1 gm in 100 mls @ 100 mls/hr IVPB DAILY [facility] PRN Reason: Protocol Last Admin: 06/23/17 10:28 Dose: 100 mls/hr Dextrose/Sodium Chloride (Dextrose 5%/0.45% Ns 1000 Ml) 1,000 mls @ 100 mls/hr IV .Q10H [facility] Last Admin: 06/23/17 12:50 Dose: 100 mls/hr Nitroglycerin (Nitro-Bid 2% Oint) 1 ea TOP Q4H PRN PRN Reason: Other Ondansetron HCl (Zofran Inj) 4 mg IVP Q6H PRN PRN Reason: Nausea/Vomiting Last Admin: 06/22/17 09:30 Dose: 4 mg Polyethylene Glycol (Miralax) 17 gm PO DAILY [facility] Last Admin: 06/23/17 10:28 Dose: Not Given - Labs Labs: 06/23/17 06:45 06/23/17 06:45 PT 12.6 Seconds (9.9-11.8) H 06/19/17 11:41 INR 1.17 (0.93-1.08) H 06/19/17 11:41 APTT 38.7 Seconds (23.7-30.8) H 06/19/17 11:41 - Constitutional Appears: No Acute Distress - Head Exam Head Exam: NORMOCEPHALIC - Eye Exam Eye Exam: Normal appearance. absent: Scleral icterus - ENT Exam ENT Exam: Mucous Membranes Moist - Neck Exam Neck Exam: Normal Inspection - Respiratory Exam Respiratory Exam: NORMAL BREATHING PATTERN. absent: Respiratory Distress - Cardiovascular Exam Cardiovascular Exam: +S1, +S2 - GI/Abdominal Exam GI & Abdominal Exam: Soft, Normal Bowel Sounds. absent: Guarding, Tenderness, Organomegaly, Rebound - Extremities Exam Extremities Exam: Normal Capillary Refill. absent: Calf Tenderness, Pedal Edema - Neurological Exam Neurological Exam: Alert, Awake, Oriented x3 - Skin Skin Exam: Dry, Warm Assessment and Plan - Assessment and Plan (Free Text) Assessment: Assessment: Diverticulitis, improving as evident on CT scan,continued abdominal heaviness to left lower quadrant. Obesity History of sciatica Anorexia Generalized weakness Plan: patient does not like pure , change soft low residual Continue IV fluids Continue GI prophylaxis, she is on Pepcid On stool softeners Patient is on IV antibiotics of Rocephin and Flagyl out of bed/Ambulating in the hallway Request surgical reevaluation, spoke to JEAN Francois Outpatient colonoscopy when diverticulitis has completely resolved prior to any surgical intervention. Seen and discussed with Dr. Jimenez
--- NOTE | 2017-06-23 17:03 | CP.PCM.PN ---
Subjective - Date & Time of Evaluation Date of Evaluation: 06/23/17 Time of Evaluation: 17:00 - Subjective Subjective: General Surgery progress note for Dr. Calvillo PT was reconsulted because patient is not having an appetite. patient states there is a weight or pulling on left inguinal region when she ambulates and moves. PT S&E in room. Patient sat in chair, was able to demonstrate walking. Patient admitted to walking around the floors. Patient pointed to the location of pain at left inguinal region. No numbness tingling, worse with walking, standing, and moving from [facility]. PT denies issues with BM, F/C, N/V, Constipation, diarrhea. Objective - Vital Signs/Intake and Output Vital Signs (last 24 hours): Temp Pulse Resp BP Pulse Ox 98.7 F 84 20 113/65 98 06/23/17 08:17 06/23/17 08:17 06/23/17 08:17 06/23/17 08:17 06/23/17 08:17 Intake and Output: 06/23/17 06/23/17 06:59 18:59 Intake Total 480 Balance 480 - Medications Medications: Current Medications Acetaminophen (Tylenol 325mg Tab) 650 mg PO Q6H PRN PRN Reason: Pain, moderate (4-7) Famotidine (Pepcid) 40 mg PO HS [facility] Last Admin: 06/22/17 21:10 Dose: 40 mg Metronidazole (Flagyl) 500 mg in 100 mls @ 100 mls/hr IVPB Q8 [facility] PRN Reason: Protocol Last Admin: 06/23/17 13:43 Dose: 100 mls/hr Ceftriaxone Sodium (Rocephin 1 Gram Ivpb) 1 gm in 100 mls @ 100 mls/hr IVPB DAILY [facility] PRN Reason: Protocol Last Admin: 06/23/17 10:28 Dose: 100 mls/hr Dextrose/Sodium Chloride (Dextrose 5%/0.45% Ns 1000 Ml) 1,000 mls @ 100 mls/hr IV .Q10H [facility] Last Admin: 06/23/17 12:50 Dose: 100 mls/hr Nitroglycerin (Nitro-Bid 2% Oint) 1 ea TOP Q4H PRN PRN Reason: Other Ondansetron HCl (Zofran Inj) 4 mg IVP Q6H PRN PRN Reason: Nausea/Vomiting Last Admin: 06/22/17 09:30 Dose: 4 mg Polyethylene Glycol (Miralax) 17 gm PO DAILY [facility] Last Admin: 06/23/17 10:28 Dose: Not Given - Labs Labs: 06/23/17 06:45 06/23/17 06:45 PT 12.6 Seconds (9.9-11.8) H 06/19/17 11:41 INR 1.17 (0.93-1.08) H 06/19/17 11:41 APTT 38.7 Seconds (23.7-30.8) H 06/19/17 11:41 - Constitutional Appears: Non-toxic, No Acute Distress - Head Exam Head Exam: NORMAL INSPECTION - Eye Exam Eye Exam: EOMI, Normal appearance - ENT Exam ENT Exam: Mucous Membranes Moist - Neck Exam Neck Exam: Full ROM, Normal Inspection - Respiratory Exam Respiratory Exam: absent: Accessory Muscle Use, Respiratory Distress - Cardiovascular Exam Cardiovascular Exam: REGULAR RHYTHM. absent: Bradycardia, Tachycardia - GI/Abdominal Exam GI & Abdominal Exam: Soft, Normal Bowel Sounds. absent: Rigid, Tenderness, Pulsatile Mass, Rebound - Extremities Exam Extremities Exam: Full ROM, Normal Inspection. absent: Pedal Edema Additional comments: left inguinal region tenderness. psoas muscle tenderness to palpation. - Back Exam Back Exam: Full ROM. absent: NORMAL INSPECTION - Neurological Exam Neurological Exam: Alert, Awake, Normal Gait, Oriented x3 - Psychiatric Exam Psychiatric exam: Normal Affect, Normal Mood - Skin Skin Exam: Dry, Intact, Normal Color, Warm Assessment and Plan - Assessment and Plan (Free Text) Assessment: 47F decreased diet, diverticulitis resolving Plan: consider psoas muscle strain no surgical intervention needed at this time. c/w current medical management c/w current pain management encourage ambulation and adequate stretching Patient dislikes the food and does not have good appetite. f/u medicine team management
--- NOTE | 2017-06-23 18:07 | PN ---
DATE: 06/23/2017 SUBJECTIVE: This 47-year-old female was examined at her bedside. This case was reviewed in detail with herself, her nurse, and Dr. Jimenez from GI. Additionally, disability papers were completed at the patient's bedside as well. She remains hospitalized with persistent left lower quadrant pain in the setting of diverticulitis that was complicated by readmission because of inability to eat, anorexia, and dehydration after her previous discharge. The patient at present remains anorectic with poor p.o. intake. She is receiving IV fluids and has had an endoscopy that showed minimal gastritis and no evidence of ulcers or esophagitis. I have had a lengthy bedside discussion with the patient regarding her need for continued hospitalization, IV fluids, IV antibiotics, and ultimately once stabilized in the next 2 weeks or so, an elective colonoscopy prior to consideration of the timing of surgery for her diverticulitis which will involve a partial colectomy. The patient is now aware of the overall medical plan and hopefully will be complaint with the above. Earlier today, she was telling the nurse she wanted to sign AMA. To date she has not eaten nor drunk fluids sufficiently. PHYSICAL EXAMINATION: VITAL SIGNS: Temperature is 98.7, respirations 20, pulse 84, and blood pressure 113/65 with a pulse ox of 98% on room air. HEENT: Head is normocephalic, atraumatic. Eyes; no icterus. Ears, clear. Throat, non-injected. NECK: Supple. HEART: Regular S1 and S2. LUNGS: Clear. ABDOMEN: Obese, nontender without palpable organomegaly. There is no rebound, no guarding. There was modest left lower quadrant pain on deep palpation. EXTREMITIES: No clubbing. No cyanosis. No edema. SKIN: Warm and dry. NEUROLOGICAL: Intact. PSYCHOLOGICAL: Alert. VASCULAR: Legs are warm to touch. LABORATORY DATA: White count 7,400, hemoglobin 11.9, hematocrit 35.6, platelets 401,000. PT/INR 1.17, PTT 38.7. Sodium 141, K 3.4, chloride 105, bicarb 25, BUN 2, creatinine 0.5, random blood sugar is 87. Liver function testing was normal including bilirubin 0.7, AST 24, ALT 24, alk phos 92, lipase 124 normal. Urinalysis unremarkable. Microbiology report, stool C. diff toxin antigen and toxin negative. Blood cultures, no growth. Urine culture, no growth. IMPRESSION: A 47-year-old female with morbid obesity, descending colon diverticulitis that is moderately severe with gastritis, anorexia, hypokalemia and readmission for dehydration, and failure to thrive as an outpatient. PLAN: At present is to continue IV D5 at 0.45 saline at 100 mL per hour, Flagyl 500 mg IV q. 8. The patient has been ordered to receive 40 mEq of p.o. potassium x1 dose and we will have a repeat potassium level in the a.m. She continues on MiraLax 17 grams p.o., Pepcid 40 mg p.o. at bedtime, Rocephin 1 g IV q. 24, and Zofran 4 mg IV q. 6 hours p.r.n. nausea and vomiting. She is ordered to receive soft bland diet as tolerated. She is wearing antiembolism stockings. She remains on moderate fall prevention risk protocol. She is ordered to be ambulated with assistance and once medically cleared by GI surgery and the patient is able to eat and tolerate p.o. food and fluids, will be ready for discharge with the understanding she will need an outpatient colonoscopy and GI followup with Dr. Jimenez, who will then discuss the timing of her surgery with Dr. Calvillo regarding her descending colon diverticulitis. It is the understanding for the patient that she needs the colonoscopy prior to elective surgery so that no intraluminal defects of her colon are missed. Should the patient have any decompensation in her clinical status she could require emergency surgery in advance of colonoscopy. All of the above was discussed in detail with the patient, Dr. Jimenez and nursing. Greater than fifty minutes was spent in the care of management and discussion and ordering of care for this patient today. Karol Banks MD [facility]
[2017-06-24] MEDS: metroNIDAZOLE IV 500 mg/100 ml 500 MG/100 ML BAG IVPB SCH ×3 (05:15→21:09)
[2017-06-24] MEDS: POLYETHYLENE GLYCOL 3350 17 GM/Dose PACKET PO SCH (10:04)
[2017-06-24] MEDS: cefTRIAXone 1 gm 1 GM/100 ML BAG IVPB SCH (10:04)
--- NOTE | 2017-06-24 13:16 | CP.PCM.PN ---
<Renuka Nevarez - Last Filed: 06/24/17 13:15> Subjective - Date & Time of Evaluation Date of Evaluation: 06/24/17 Time of Evaluation: 11:00 - Subjective Subjective: Seen and examined at the bedside earlier today, the chart was reviewed. Patient 's nausea is resolved, she still gets that abdominal heaviness when ambulating to the left lower quadrant. She was reevaluated by surgical team, no surgical intervention needed, probable muscle strain. Patient is having formed BM, denies any melena or bright red blood per rectum. Appetite is still poor. No fever or chills. Encouraged patient to increase oral intake. Objective - Vital Signs/Intake and Output Vital Signs (last 24 hours): Temp Pulse Resp BP Pulse Ox 98.1 F 86 18 116/73 95 06/24/17 07:00 06/24/17 07:00 06/24/17 07:00 06/24/17 07:00 06/24/17 07:00 Intake and Output: 06/24/17 06/24/17 06:59 18:59 Intake Total 180 Balance 180 - Medications Medications: Current Medications Acetaminophen (Tylenol 325mg Tab) 650 mg PO Q6H PRN PRN Reason: Pain, moderate (4-7) Famotidine (Pepcid) 40 mg PO HS FOR[facility]LY [facility], [facility]1983 Last Admin: 06/23/17 22:30 Dose: 40 mg Metronidazole (Flagyl) 500 mg in 100 mls @ 100 mls/hr IVPB Q8 JEANCARLOS PRN Reason: Protocol Last Admin: 06/24/17 05:15 Dose: 100 mls/hr Ceftriaxone Sodium (Rocephin 1 Gram Ivpb) 1 gm in 100 mls @ 100 mls/hr IVPB DAILY JEANCARLOS PRN Reason: Protocol Last Admin: 06/24/17 10:04 Dose: 100 mls/hr Dextrose/Sodium Chloride (Dextrose 5%/0.45% Ns 1000 Ml) 1,000 mls @ 100 mls/hr IV .Q10H FOR[facility], [facility] Last Admin: 06/23/17 12:50 Dose: 100 mls/hr Nitroglycerin (Nitro-Bid 2% Oint) 1 ea TOP Q4H PRN PRN Reason: Other Ondansetron HCl (Zofran Inj) 4 mg IVP Q6H PRN PRN Reason: Nausea/Vomiting Last Admin: 06/22/17 09:30 Dose: 4 mg Polyethylene Glycol (Miralax) 17 gm PO DAILY [facility], [facility]1983 Last Admin: 06/24/17 10:04 Dose: 17 gm - Labs Labs: 06/23/17 06:45 06/24/17 06:30 PT 12.6 Seconds (9.9-11.8) H 06/19/17 11:41 INR 1.17 (0.93-1.08) H 06/19/17 11:41 APTT 38.7 Seconds (23.7-30.8) H 06/19/17 11:41 - Constitutional Appears: No Acute Distress - Head Exam Head Exam: NORMOCEPHALIC - Eye Exam Eye Exam: Normal appearance. absent: Scleral icterus - ENT Exam ENT Exam: Mucous Membranes Moist - Neck Exam Neck Exam: Normal Inspection - Respiratory Exam Respiratory Exam: Clear to Ausculation Bilateral, NORMAL BREATHING PATTERN. absent: Respiratory Distress - Cardiovascular Exam Cardiovascular Exam: +S1, +S2 - GI/Abdominal Exam GI & Abdominal Exam: Soft, Normal Bowel Sounds. absent: Guarding, Tenderness, Organomegaly, Rebound - Extremities Exam Extremities Exam: Normal Capillary Refill. absent: Calf Tenderness, Pedal Edema - Neurological Exam Neurological Exam: Alert, Awake, Oriented x3 Assessment and Plan - Assessment and Plan (Free Text) Assessment: Assessment: Diverticulitis, improving as evident on CT scan,continued abdominal heaviness to left lower quadrant. Obesity History of sciatica Anorexia Generalized weakness Plan: continue soft low residual, encourage him to increase oral intake Continue IV fluids Continue GI prophylaxis, she is on Pepcid on MiraLAX daily, monitor output hold for loose stools Patient is on IV antibiotics of Rocephin and Flagyl out of bed/Ambulating in the [address] Outpatient colonoscopy when diverticulitis has completely resolved, patient reevaluated by surgical team, no plans for surgical intervention. Seen and discussed with Dr. Jimenez <Jessica Jimenez V - Last Filed: 06/24/17 20:06> Objective - Vital Signs/Intake and Output Vital Signs (last 24 hours): Temp Pulse Resp BP Pulse Ox 98.1 F 86 18 116/73 95 06/24/17 07:00 06/24/17 07:00 06/24/17 07:00 06/24/17 07:00 06/24/17 07:00 Intake and Output: 09/15/17 09/16/17 18:59 06:59 Intake Total 480 Output Total 0 Balance 480 - Medications Medications: Current Medications Acetaminophen (Tylenol 325mg Tab) 650 mg PO Q6H PRN PRN Reason: Pain, moderate (4-7) Famotidine (Pepcid) 40 mg PO HS [facility], [facility] Last Admin: 06/23/17 22:30 Dose: 40 mg Metronidazole (Flagyl) 500 mg in 100 mls @ 100 mls/hr IVPB Q8 JEANCARLOS PRN Reason: Protocol Last Admin: 06/24/17 14:56 Dose: 100 mls/hr Ceftriaxone Sodium (Rocephin 1 Gram Ivpb) 1 gm in 100 mls @ 100 mls/hr IVPB DAILY JEANCARLOS PRN Reason: Protocol Last Admin: 06/24/17 10:04 Dose: 100 mls/hr Dextrose/Sodium Chloride (Dextrose 5%/0.45% Ns 1000 Ml) 1,000 mls @ 100 mls/hr IV .Q10H [facility], [facility] Last Admin: 06/23/17 12:50 Dose: 100 mls/hr Nitroglycerin (Nitro-Bid 2% Oint) 1 ea TOP Q4H PRN PRN Reason: Other Ondansetron HCl (Zofran Inj) 4 mg IVP Q6H PRN PRN Reason: Nausea/Vomiting Last Admin: 06/24/17 16:17 Dose: 4 mg Polyethylene Glycol (Miralax) 17 gm PO DAILY [facility], [facility] Last Admin: 06/24/17 10:04 Dose: 17 gm - Labs Labs: 06/23/17 06:45 06/24/17 06:30 PT 12.6 Seconds (9.9-11.8) H 06/19/17 11:41 INR 1.17 (0.93-1.08) H 06/19/17 11:41 APTT 38.7 Seconds (23.7-30.8) H 06/19/17 11:41 Attending/Attestation - Attestation Notes (Text): 06/24/17 20:05 p
--- NOTE | 2017-06-24 18:33 | PN ---
DATE: 06/24/2017 SUBJECTIVE: This is a 47-year-old female who was examined at her bedside. Her case was reviewed in detail with herself, her nurse Ana María Mcgrath, registered nurse, Dr. Delta Calvillo from Surgery, and Dr. Jessica Jimenez from Gastroenterology. The patient remains weak and deconditioned. According to nurse, she barely ate any breakfast. She is taking water in with medication, but remains weak and deconditioned and was admitted this time with deconditioning, dehydration, and persistent descending colon diverticulitis. At present, she is out of bed to chair. She is ambulating with assistance and IV fluids are infusing through her veins. She denies any fever, chills, shortness of breath, hematemesis, or melena and did not require Zofran for nausea as she did yesterday. PHYSICAL EXAMINATION: VITAL SIGNS: Temperature is 98.1, respirations 18, pulse 86, and blood pressure 116/73 with a pulse ox of 95% on room air. HEENT: Head is normocephalic, atraumatic. Eyes; no icterus. Ears, clear. Throat, non-injected. NECK: Supple. HEART: Regular S1 and S2. LUNGS: Clear. ABDOMEN: Obese, nontender without palpable organomegaly. No rebound. No guarding. No tenderness. EXTREMITIES: No clubbing. No cyanosis. No edema. She is wearing antiembolism stockings. SKIN: Warm and dry. VASCULAR: Legs are warm to touch. PSYCHOLOGICAL: Alert and oriented x3. NEUROLOGIC: Grossly intact. LABORATORY DATA: White count 7400, hemoglobin 11.9, hematocrit 35.6, platelets 401,000. PT/INR 1.17, PTT 38.7. Sodium 141, potassium 3.9, chloride 105, bicarb 25, BUN 2, creatinine 0.5. Random blood sugar was 85. Microbiology study shows stool C. diff toxin antigen and toxin negative. Blood cultures, no growth. Urine culture, no growth. IMPRESSION: This is a 47-year-old female with morbid obesity with left descending colon diverticulitis, endoscopy consistent with chronic gastritis, now with anorexia and dehydration, requiring IV fluids, IV antibiotics, oral Pepcid antacid and altered GI hepatic bland diet, which the patient has not been able to tolerate today. PLAN: I have discussed with her in detail is to continue D5 0.45 saline of 100 mL per hour, Flagyl 500 mg IV q.8, Miralax 17 grams p.o. daily, Pepcid 40 mg p.o. at bedtime, Rocephin 1 gram IV q.24, Zofran 4 mg IV q.6 hours p.r.n. nausea and vomiting, soft bland diet, antiembolism stockings, fall precautions, and out of bed to chair with assistance for ambulation as able. Once the patient is able to tolerate food and fluids and have bowel movements, we will consider her ready for discharge, She will need oral antibiotics as an outpatient with followup colonoscopy and scheduling of surgery for her colonic diverticulitis. All of this was discussed in detail with the patient, nursing, surgery, and gastroenterology. Greater than fifty minutes was spent in the care and management of this patient and discussion of her care today. Disability forms were completed. All questions were answered. Karol Banks MD [facility]
[2017-06-25] MEDS: metroNIDAZOLE IV 500 mg/100 ml 500 MG/100 ML BAG IVPB SCH ×3 (05:32→21:48)
[2017-06-25] MEDS: cefTRIAXone 1 gm 1 GM/100 ML BAG IVPB SCH (09:32)
[2017-06-25] MEDS: POLYETHYLENE GLYCOL 3350 17 GM/Dose PACKET PO SCH (09:34)
--- NOTE | 2017-06-25 16:25 | PN ---
DATE: 06/25/2017 SUBJECTIVE: This 47-year-old female was examined at her bedside. Her case was reviewed in detail with herself and nursing. The patient remains hospitalized and remains anorectic with poor p.o. intake. She did not eat breakfast today, but stated she was nauseous last evening and required parenteral Zofran. She still has intolerance to food, fluids, but is cooperating with medication administration and is currently receiving parenteral IV fluids as well as parenteral antibiotics. She continues to be followed by gastroenterology and surgery, who have ultimate plans of colonoscopy and corrective surgery regarding the issue of descending colon diverticulitis; however, it is hopeful that the patient can resolve her acute issue and then have elective surgery after a full colonoscopy is complete. All of this has been reviewed with the patient in detail and she is accepting of this plan of action. She states that she is trying to cooperate with advancement of diet; however, to date has been unable due to persistent nausea. PHYSICAL EXAMINATION: VITAL SIGNS: Temperature is 98.9, respirations 20, pulse 88, blood pressure 126/75 with pulse ox of 98% on room air. HEENT: Normocephalic, atraumatic. Eyes, no icterus. NECK: Supple. HEART: Regular S1 and S2. No pathological rubs, murmurs or gallops. LUNGS: Clear to auscultation. ABDOMEN: Obese, nontender without palpable organomegaly. No rebound. No guarding. No tenderness. EXTREMITIES: No clubbing. No cyanosis. No edema. SKIN: Without rash. NEUROLOGICAL: Intact. PSYCHOLOGICAL: Alert and oriented x3. VASCULAR: Legs warm to touch. LABORATORY DATA: White count 7,400, hemoglobin 11.9, hematocrit 35.6, platelets 201,000. Sodium 141, potassium 3.9, chloride 105, bicarbonate 25, BUN 2, creatinine 0.5. Random blood sugar 85, bilirubin 0.7, AST 24, ALT 24, alkaline phosphatase 92, lipase 124. Microbiology reports stool for C. diff antigen and toxin negative. Blood cultures no growth. Urine culture no growth. IMPRESSION: A 47-year-old female with morbid obesity and severe descending colon, diverticulitis now with anorexia and failure to thrive. PLAN: At present is to continue to encourage the patient to attempt her bland diet. She continues on D5 at 0.45 saline at 100 mL per hour, Flagyl 500 mg IV q. 8 hours, Rocephin 1 g IV daily, nitroglycerin topical 1 inch to chest wall q. 4 hours p.r.n. accelerated hypertension if her systolic blood pressure should be greater than 160 or her diastolic blood pressure should be greater than 100. She continues on Pepcid 40 mg p.o. at bedtime, Zofran 4 mg IV q. 6 hours p.r.n. nausea and vomiting, MiraLax 17 g p.o. daily. We are monitoring her bowel movements. She continues with antiembolism stockings to be worn during the daytime, out of bed to chair, fall precautions and ambulation with assistance. All of the above was discussed in detail with the patient at her bedside. All questions were answered. The patient understands she will need to continue hospitalization with parenteral fluids and antibiotics until she is stable to eat and drink adequately to ensure safety upon discharge. It should be noted that the patient was readmitted because of dehydration, anorexia, and deconditioning in the setting of severe left colon diverticulitis. Karol Banks MD [facility]
[2017-06-26] MEDS: POLYETHYLENE GLYCOL 3350 17 GM/Dose PACKET PO SCH (10:58)
[2017-06-26] MEDS: cefTRIAXone 1 gm 1 GM/100 ML BAG IVPB SCH (12:01)
[2017-06-26] MEDS: Dextrose 5%/0.45% NS 1,000 ML IV SCH (12:02)
[2017-06-26] MEDS: metroNIDAZOLE IV 500 mg/100 ml 500 MG/100 ML BAG IVPB SCH ×2 (14:18→22:16)
--- NOTE | 2017-06-26 14:44 | PN ---
DATE: 06/26/2017 SUBJECTIVE: This 47-year-old female, remains hospitalized on parenteral fluids and antibiotics for descending colon diverticulitis. Her appetite remains poor. She complains of persistent nausea, has undergone an endoscopy consistent with gastritis and remains anorectic at this time. The patient is trying to drink fluids and eat plain foods, but has been unsuccessful to sufficiently eat or drink to ensure stability if discharged. This has been discussed with the patient who is trying diligently to advance her diet. She denies any fever, chills, chest pain or shortness of breath. There have been no reports of hematemesis or melena. She did require IV Zofran for persistent nausea. PHYSICAL EXAMINATION: VITAL SIGNS: Temperature is 98.1, respirations are 20, pulse is 82, and blood pressure is 126/69 with pulse oximetry of 94% on room air. HEENT: Head is normocephalic and atraumatic. Eyes: No icterus. NECK: Supple. HEART: Regular, S1 and S2. LUNGS: Clear to auscultation. ABDOMEN: Obese and nontender without palpable organomegaly. EXTREMITIES: No clubbing, no cyanosis, and no edema. She is wearing antiembolism stockings. SKIN: Warm and dry. NEUROLOGICAL: Exam is intact. PSYCHOLOGICAL: Alert and oriented x3. VASCULAR: Legs warm to touch. LABORATORY DATA: White count of 7,400, hemoglobin of 11.9, hematocrit of 35.6, and platelets 401,000. PT/INR of 1.17 and PTT of 38.7. Sodium of 141, potassium of 3.9, chloride of 105, bicarbonate of 25, BUN of 2, and creatinine of 0.5. Random blood sugar of 85. Bilirubin of 0.7, AST of 24, ALT of 24, and alkaline phosphatase of 92. Clostridium difficile antigen and toxin, stool studies negative. Blood cultures, no growth. Urine C and S is negative. IMPRESSION: A 47-year-old female morbidly obesity with severe descending colon diverticulitis, anorexia, failure to thrive, readmitted because of failure to thrive and dehydration with gastritis on endoscopy and the need to clear the diverticulitis and then proceed with colonoscopy and then elective colectomy for severe diverticulitis. PLAN: At present is to maintain D5 0.45 saline at 100 mL per hour, MiraLax 17 grams p.o. daily, Pepcid 40 mg p.o. at bedtime and Zofran 4 mg IV q.6 hours p.r.n. nausea and vomiting. She continues on a bland diet. Antiembolism stockings are being worn daily and removed at bedtime. She remains on fall precautions and is ambulating with assistance. Ultimately the plan will be to have her successfully eat and drink, having bowel movements and able to be cleared for discharge. She will then need to resolve the acute diverticulitis have colonoscopy and then scheduled for elective surgery. All of this was discussed in detail with the patient and nursing at bedside. All questions were answered. The patient is aware and in agreement with the above plan of action. Karol Banks MD MT[facility]
[2017-06-27] MEDS: metroNIDAZOLE IV 500 mg/100 ml 500 MG/100 ML BAG IVPB SCH (05:10)
[2017-06-27 07:24] LABS: HEMATOCRIT 35.1 % (36.0-48.0)
[2017-06-27 07:42] LABS: CARBON DIOXIDE 27 mmol/L (21-33); CHLORIDE 101 mmol/L (98-107); GFR AFRICAN-AMERICAN > 60; GLUCOSE,RANDOM 106 mg/dL (70-110); POTASSIUM 3.1 mmol/L (3.6-5.0); SODIUM 139 mmol/L (132-148)
[2017-06-27 07:43] LABS: BLOOD UREA NITROGEN < 2 mg/dL (7-21)
--- NOTE | 2017-06-27 09:06 | PN ---
Amita Valencia is seen on the floor. She has very little abdominal pain and mostly pressure. The CAT scan is improving. She is short of breath on minimal exertion and on going from the bathroom to the chair she is short of breath. This might be deconditioning. We will discuss with Dr. Hameed. Delta Calvillo MD
--- NOTE | 2017-06-27 09:48 | PN ---
DATE: 06/27/2017 SUBJECTIVE: This patient was seen and evaluated earlier today. Her p.o. intake still remains low. PHYSICAL EXAMINATION: HEENT: Atraumatic. Anicteric. NECK: Supple. HEART: S1 and S2 heard. LUNGS: Bilateral air entry present. ABDOMEN: Soft. Mild tenderness on deep palpation in the left side of the abdomen; otherwise, unremarkable. EXTREMITIES: No edema and no cyanosis. LABORATORY DATA: There are no recent labs. IMPRESSION: This 47-year-old patient readmitted with decreased p.o. intake and pain in the left side of the abdomen. The patient did have acute diverticulitis with mesenteric inflammation and mural thickening and thickening at the adjacent small bowel loop. Present main problem what left-sided abdominal discomfort has significant improvement. Her main complaint is reduced the p.o. intake. Presently, on Flagyl and ceftriaxone. PLAN: The plan is to discontinue the antibiotics as the patient has been on antibiotics for long time. We would consider to encourage p.o. intake. We will discuss with Dr. Banks. The patient will benefit from the elective colonoscopy prior to the surgical intervention. Thank you very much for allowing me to participate in the care of the patient. Jessica Jimenez MD
[2017-06-27] MEDS: cefTRIAXone 1 gm 1 GM/100 ML BAG IVPB SCH (09:50)
[2017-06-27] MEDS: POLYETHYLENE GLYCOL 3350 17 GM/Dose PACKET PO SCH (09:50)
--- NOTE | 2017-06-27 10:57 | CP.PCM.PN ---
<Gm Morris - Last Filed: 06/27/17 10:58> Subjective - Date & Time of Evaluation Date of Evaluation: 06/27/17 Time of Evaluation: 10:55 - Subjective Subjective: GI: Dr. Jimenez Pt seen and examined. Resting comfortably in bed. She continues to have mild L side abd pain, which is improved compared to yesterday. She continues to have decreased PO intake. She denies F/C. No N/V/D. Objective - Vital Signs/Intake and Output Vital Signs (last 24 hours): Temp Pulse Resp BP Pulse Ox 98.4 F 90 20 134/76 96 06/27/17 07:56 06/27/17 07:56 06/27/17 07:56 06/27/17 07:56 06/27/17 07:56 Intake and Output: 06/27/17 06/27/17 06:59 18:59 Intake Total 180 Balance 180 - Medications Medications: Current Medications Acetaminophen (Tylenol 325mg Tab) 650 mg PO Q6H PRN PRN Reason: Pain, moderate (4-7) Last Admin: 06/25/17 18:19 Dose: 650 mg Famotidine (Pepcid) 40 mg PO HS [facility] Last Admin: 06/26/17 22:16 Dose: 40 mg Metronidazole (Flagyl) 500 mg in 100 mls @ 100 mls/hr IVPB Q8 [facility] PRN Reason: Protocol Last Admin: 06/27/17 05:10 Dose: 100 mls/hr Ceftriaxone Sodium (Rocephin 1 Gram Ivpb) 1 gm in 100 mls @ 100 mls/hr IVPB DAILY [facility] PRN Reason: Protocol Last Admin: 06/27/17 09:50 Dose: 100 mls/hr Dextrose/Sodium Chloride (Dextrose 5%/0.45% Ns 1000 Ml) 1,000 mls @ 100 mls/hr IV .Q10H [facility] Last Admin: 06/26/17 12:02 Dose: 100 mls/hr Nitroglycerin (Nitro-Bid 2% Oint) 1 ea TOP Q4H PRN PRN Reason: Other Ondansetron HCl (Zofran Inj) 4 mg IVP Q6H PRN PRN Reason: Nausea/Vomiting Last Admin: 06/26/17 15:47 Dose: 4 mg Polyethylene Glycol (Miralax) 17 gm PO DAILY [facility] Last Admin: 06/27/17 09:50 Dose: 17 gm Potassium Chloride (K-Dur 20 Meq Er Tab) 40 meq PO BID [facility] Stop: 06/29/17 09:00 - Labs Labs: 06/27/17 07:14 06/27/17 07:14 PT 12.6 Seconds (9.9-11.8) H 06/19/17 11:41 INR 1.17 (0.93-1.08) H 06/19/17 11:41 APTT 38.7 Seconds (23.7-30.8) H 06/19/17 11:41 - Constitutional Appears: Non-toxic, No Acute Distress - Head Exam Head Exam: ATRAUMATIC, NORMOCEPHALIC - Eye Exam Eye Exam: EOMI. absent: Scleral icterus - ENT Exam ENT Exam: Mucous Membranes Moist, Normal External Ear Exam - Neck Exam Neck Exam: Full ROM - Respiratory Exam Respiratory Exam: NORMAL BREATHING PATTERN. absent: Accessory Muscle Use, Respiratory Distress - GI/Abdominal Exam GI & Abdominal Exam: Soft, Tenderness (LLQ). absent: Distended, Firm, Guarding , Rigid, Rebound - Extremities Exam Extremities Exam: absent: Calf Tenderness, Pedal Edema - Neurological Exam Neurological Exam: Alert, Awake, Oriented x3 - Psychiatric Exam Psychiatric exam: Normal Affect, Normal Mood - Skin Skin Exam: Dry, Normal Color, Warm Assessment and Plan - Assessment and Plan (Free Text) Assessment: 47F w. L sided diverticulitis, improving -will D/C abx at this time -encourage PO intake -Hypokalemia: replete PRN -encourage ambulation -pt will need future outpt colonoscopy -recommend future elective colon resection following colonoscopy -case d/w attending Zemaitis PGY3 <Jessica Jimenez V - Last Filed: 06/27/17 20:44> Objective - Vital Signs/Intake and Output Vital Signs (last 24 hours): Temp Pulse Resp BP Pulse Ox 98.5 F 80 20 129/79 97 06/27/17 16:00 06/27/17 16:00 06/27/17 16:00 06/27/17 16:00 06/27/17 16:00 Intake and Output: 06/27/17 06/28/17 18:59 06:59 Intake Total 720 Balance 720 - Medications Medications: Current Medications Acetaminophen (Tylenol 325mg Tab) 650 mg PO Q6H PRN PRN Reason: Pain, moderate (4-7) Last Admin: 06/25/17 18:19 Dose: 650 mg Famotidine (Pepcid) 40 mg PO HS [facility] Last Admin: 06/26/17 22:16 Dose: 40 mg Dextrose/Sodium Chloride (Dextrose 5%/0.45% Ns 1000 Ml) 1,000 mls @ 100 mls/hr IV .Q10H [facility] Last Admin: 06/27/17 18:49 Dose: 100 mls/hr Nitroglycerin (Nitro-Bid 2% Oint) 1 ea TOP Q4H PRN PRN Reason: Other Ondansetron HCl (Zofran Inj) 4 mg IVP Q6H PRN PRN Reason: Nausea/Vomiting Last Admin: 06/26/17 15:47 Dose: 4 mg Polyethylene Glycol (Miralax) 17 gm PO DAILY [facility] Last Admin: 06/27/17 09:50 Dose: 17 gm Potassium Chloride (K-Dur 20 Meq Er Tab) 40 meq PO BID [facility] Stop: 06/29/17 09:00 Last Admin: 06/27/17 18:48 Dose: 40 meq - Labs Labs: 06/27/17 07:14 06/27/17 07:14 PT 12.6 Seconds (9.9-11.8) H 06/19/17 11:41 INR 1.17 (0.93-1.08) H 06/19/17 11:41 APTT 38.7 Seconds (23.7-30.8) H 06/19/17 11:41 Attending/Attestation - Attestation I have personally seen and examined this patient.: Yes I have fully participated in the care of the patient.: Yes I have reviewed all pertinent clinical information, including history, physical exam and plan: Yes Notes (Text): This patient was seen and evaluated along with the resident earlier Patient feels slightly better able to eat little bit better than before. Her main complaint is complete loss of appetit Physical examination he has some tenderness in the left side of the abdomen points out more towards the very low down in the groin or low llq quadrant. Would benefit from discontinuing the antibiotics as patient has been on more than 2 weeks. This could sometimes be also a contemplated factor for significant reduced by mouth intake Encourage ambulation Elective colonoscopy and surgical evaluation for colon resection in view of the microperforation after the colonoscopy Thank you very much for allowing us to participate in the care of the patient
[2017-06-27] MEDS: Potassium Chloride 20 mEq ER Tab PO SCH ×2 (12:25→18:48)
--- NOTE | 2017-06-27 13:57 | PN ---
DATE: 06/27/2017 SUBJECTIVE: This is a 47-year-old female, who was examined at her bedside. She is out of bed to chair, wearing anti-embolism stockings, ambulating independently and starting to eat and drink better today. She denied any chest pain, shortness of breath, fever or chills. PHYSICAL EXAMINATION: VITAL SIGNS: Temperature is 98.4, respirations are 20, pulse 90, and blood pressure is 134/76 with pulse ox of 96% on room air. HEENT: Head is normocephalic and atraumatic. Eyes: No icterus. Ears: Clear. Throat: Non-injected. NECK: Supple. HEART: Regular, S1 and S2. LUNGS: Clear. ABDOMEN: Soft. EXTREMITIES: No edema. SKIN: Without rash. NEUROLOGICAL: Intact. PSYCHOLOGICAL: Alert. VASCULAR: Legs warm to touch. LABORATORY DATA: Hemoglobin of 11.6, hematocrit of 35.1. Sodium 139, potassium 3.1, chloride of 101, bicarb of 27, BUN of 2, and creatinine of 0.5. Random blood sugar of 106. Blood culture, no growth. Urine culture, no growth. Stool, C-diff toxin, antigen and toxin, negative. IMPRESSION: A 47-year-old female with diverticulitis of the descending colon, gastritis, anorexia, morbid obesity, now with hypokalemia secondary to recent vomiting. PLAN: Continue D5 0.45 saline at 100 mL per hour. She will be supplemented with potassium chloride and have potassium levels done daily for the next 48 hours. She continues on Pepcid 40 mg p.o. at bedtime, Zofran 4 mg IV q. 6 hours p.r.n. nausea and vomiting and a soft bland diet. She is wearing anti-embolism stockings. Once the patient is able to eat and drink satisfactorily and which will be confirmed by a calorie count, she will be discharged to home with GI followup for colonoscopy and surgical follow for probable elective colectomy when approved by GI. All of this has been discussed in detail with the patient at her bedside. She is aware and in agreement with the plan of action. All questions were answered. Karol Banks MD [facility] # [id number] MTDMelissa
[2017-06-27] MEDS: Dextrose 5%/0.45% NS 1,000 ML IV SCH (18:49)
[2017-06-28] MEDS: Dextrose 5%/0.45% NS 1,000 ML IV SCH ×2 (03:46→15:31)
--- NOTE | 2017-06-28 12:42 | CP.PCM.PN ---
<Renuka Nevarez - Last Filed: 06/28/17 12:41> Subjective - Date & Time of Evaluation Date of Evaluation: 06/28/17 Time of Evaluation: 10:10 - Subjective Subjective: Seen and examined, chart reviewed, on calorie count, patient states that she is tolerating PO better but does not like the food choices, appetite better than when she came in, No N/V, abdominal "heaviness" slightly better. Having formed BM, no bleeding. Objective - Vital Signs/Intake and Output Vital Signs (last 24 hours): Temp Pulse Resp BP Pulse Ox 98.2 F 94 H 20 124/76 96 06/28/17 08:00 06/28/17 08:00 06/28/17 08:00 06/28/17 08:00 06/28/17 08:00 Intake and Output: 06/28/17 06/28/17 06:59 18:59 Intake Total 360 300 Balance 360 300 - Medications Medications: Current Medications Acetaminophen (Tylenol 325mg Tab) 650 mg PO Q6H PRN PRN Reason: Pain, moderate (4-7) Last Admin: 06/25/17 18:19 Dose: 650 mg Docusate Sodium (Colace) 100 mg PO DAILY [facility] Famotidine (Pepcid) 40 mg PO HS [facility] Last Admin: 06/27/17 22:06 Dose: 40 mg Dextrose/Sodium Chloride (Dextrose 5%/0.45% Ns 1000 Ml) 1,000 mls @ 100 mls/hr IV .Q10H [facility] Last Admin: 06/28/17 03:46 Dose: 100 mls/hr Nitroglycerin (Nitro-Bid 2% Oint) 1 ea TOP Q4H PRN PRN Reason: Other Ondansetron HCl (Zofran Inj) 4 mg IVP Q6H PRN PRN Reason: Nausea/Vomiting Last Admin: 06/26/17 15:47 Dose: 4 mg Potassium Chloride (K-Dur 20 Meq Er Tab) 40 meq PO BID [facility] Stop: 06/29/17 09:00 Last Admin: 06/27/17 18:48 Dose: 40 meq - Labs Labs: 06/27/17 07:14 06/28/17 07:15 PT 12.6 Seconds (9.9-11.8) H 06/19/17 11:41 INR 1.17 (0.93-1.08) H 06/19/17 11:41 APTT 38.7 Seconds (23.7-30.8) H 06/19/17 11:41 - Constitutional Appears: No Acute Distress - Head Exam Head Exam: NORMOCEPHALIC - Eye Exam Eye Exam: Normal appearance. absent: Scleral icterus - ENT Exam ENT Exam: Mucous Membranes Moist - Neck Exam Neck Exam: Normal Inspection - Respiratory Exam Respiratory Exam: NORMAL BREATHING PATTERN. absent: Respiratory Distress - Cardiovascular Exam Cardiovascular Exam: +S1, +S2 - GI/Abdominal Exam GI & Abdominal Exam: Soft, Normal Bowel Sounds. absent: Guarding, Tenderness, Organomegaly, Rebound - Neurological Exam Neurological Exam: Alert, Awake, Oriented x3 - Psychiatric Exam Psychiatric exam: Flat Affect - Skin Skin Exam: Dry, Warm Assessment and Plan - Assessment and Plan (Free Text) Assessment: Assessment: Diverticulitis, improving as evident on CT scan,continued abdominal heaviness to left lower quadrant. Obesity Hypokalemia History of sciatica Anorexia Generalized weakness Plan: continue soft low residual On IV fluids Continue GI prophylaxis, she is on Pepcid on MiraLAX daily, monitor output hold for loose stools OFF antibiotics out of bed/Ambulating in the hallway replace K+ as needed Elective colonoscopy outpatient and surgical evaluation for colon resection in view of the microperforation after the colonoscopy Seen and discussed with Dr. Jimenez <Jessica Jimenez V - Last Filed: 06/28/17 23:54> Objective - Vital Signs/Intake and Output Vital Signs (last 24 hours): Temp Pulse Resp BP Pulse Ox 98.4 F 80 20 143/75 99 06/28/17 16:00 06/28/17 16:00 06/28/17 16:00 06/28/17 16:00 06/28/17 16:00 Intake and Output: 06/28/17 06/29/17 18:59 06:59 Intake Total 660 360 Balance 660 360 - Medications Medications: Current Medications Acetaminophen (Tylenol 325mg Tab) 650 mg PO Q6H PRN PRN Reason: Pain, moderate (4-7) Last Admin: 06/28/17 20:02 Dose: 650 mg Docusate Sodium (Colace) 100 mg PO DAILY [facility] Last Admin: 06/28/17 14:05 Dose: 100 mg Famotidine (Pepcid) 40 mg PO HS [facility] Last Admin: 06/28/17 21:14 Dose: Not Given Dextrose/Sodium Chloride (Dextrose 5%/0.45% Ns 1000 Ml) 1,000 mls @ 100 mls/hr IV .Q10H [facility] Last Admin: 06/28/17 15:31 Dose: 100 mls/hr Nitroglycerin (Nitro-Bid 2% Oint) 1 ea TOP Q4H PRN PRN Reason: Other Ondansetron HCl (Zofran Inj) 4 mg IVP Q6H PRN PRN Reason: Nausea/Vomiting Last Admin: 06/28/17 14:13 Dose: 4 mg Potassium Chloride (K-Dur 20 Meq Er Tab) 40 meq PO BID [facility] Stop: 06/29/17 09:00 Last Admin: 06/28/17 18:19 Dose: 40 meq - Labs Labs: 06/27/17 07:14 06/28/17 07:15 PT 12.6 Seconds (9.9-11.8) H 06/19/17 11:41 INR 1.17 (0.93-1.08) H 06/19/17 11:41 APTT 38.7 Seconds (23.7-30.8) H 06/19/17 11:41 Attending/Attestation - Attestation I have personally seen and examined this patient.: Yes I have fully participated in the care of the patient.: Yes I have reviewed all pertinent clinical information, including history, physical exam and plan: Yes Notes (Text): 06/28/17 23:54 p
[2017-06-28] MEDS: Potassium Chloride 20 mEq ER Tab PO SCH ×2 (14:05→18:19)
[2017-06-29] MEDS: Dextrose 5%/0.45% NS 1,000 ML IV SCH ×2 (00:11→09:52)
--- NOTE | 2017-06-29 08:25 | PN ---
DATE: 06/28/2017 SUBJECTIVE: This 47-year-old female who was examined at her bedside. Parenteral antibiotics have been discontinued by GI, Dr. Jimenez. He feels that the patient has completed a full course at this point in time. The patient remains with poor p.o. intake and hypokalemia in the setting of previous vomiting and loose bowel movements, which have prompted the discontinuation of her MiraLax. She denies fever, chills, chest pain, or shortness of breath. There has been no vomiting today and nausea has been absent this morning. PHYSICAL EXAMINATION: VITAL SIGNS: Temperature is 98.2, respirations 20, pulse 94, blood pressure 124/76 and pulse ox 96% room air. HEENT: Head normocephalic and atraumatic. Eyes no icterus. NECK: Supple. HEART: Regular S1 and S2. LUNGS: Clear. ABDOMEN: Soft and nontender. No palpable organomegaly. No rebound. No guarding. No tenderness. EXTREMITIES: No clubbing. No cyanosis. No edema. SKIN: Without rash. NEUROLOGICAL: Intact. PSYCHOLOGICAL: Alert and oriented x3. VASCULAR: Legs are warm to touch. LABORATORY DATA: Hemoglobin 11.6 and hematocrit 35.1. Sodium 139, K 3.5, chloride 101, bicarb 27, BUN 2, creatinine 0.5 and random blood sugar 106 and previous potassium 3.1. IMPRESSION: This is a 47-year-old female with morbid obesity, left colon diverticulitis, improving hypokalemia in the setting of previous vomiting and loose BMs and gastritis. PLAN: The plan at present is to discontinue MiraLax, she will be placed on Colace 100 mg p.o. daily. She continues on D5 at 0.45 saline at 100 mL per hour. She is having potassium supplements with 40 mEq of potassium b.i.d. while monitoring potassium level daily. She continues on Pepcid 40 mg p.o. at bedtime, Zofran 4 mg IV q. 6 hours p.r.n. nausea or vomiting. She is receiving high soft bland diet, low-residue. She remained on fall precautions. She is ordered to be ambulate with assistance and to wear antiembolism stockings during the day, to be removed at bedtime. The patient is having a calorie count. She has been encouraged to drink oral fluids. Once she is eating sufficient amount of food and drinking a sufficient amount of fluids, she will be ready for discharge with plan for her to have an elective colonoscopy in approximately 2-3 weeks as per GI to be followed by elective surgery for her colonic diverticulitis. All of this was discussed in detail with the patient, nursing, gastrointestinal and surgical consultants. The patient is aware and in agreement with the plan of action and hopefully will be compliant with recommendations as outlined. Kaorl Banks MD [facility] # [id number] MTDMelissa
--- NOTE | 2017-06-29 13:32 | PN ---
DATE: 06/29/2017 SUBJECTIVE: This 47-year-old female was examined at her bedside in the presence of nurse, Renuka Nevarez from Gastroenterology. The patient is being followed daily by dietary polysomnographic technologist who comments that the patient eats 710 calories, which is not sufficient for discharge and that she remains reluctant to eat or drink fluids adequately. This was discussed in detail with the patient who is agreeable to try to be more cooperative, but still refuses any dietary supplement at this time. PHYSICAL EXAMINATION: VITAL SIGNS: Temperature is 98.6, respirations 18, pulse 80, and blood pressure 113/70 with pulse ox of 97% room air. HEENT: Head normal cephalic and atraumatic. Eyes, no icterus. NECK: Supple. HEART: S1 and S2. LUNGS: Clear. ABDOMEN: Obese, nontender without palpable organomegaly. No rebound or guarding. No tenderness. EXTREMITIES: No clubbing. No cyanosis. No edema. SKIN: Without rash. NEUROLOGIC: Intact. PSYCHOLOGICAL: Alert. VASCULAR: Legs are warm to touch. LABORATORY DATA: Hemoglobin 11.6, hematocrit 35.1, potassium 3.7, BUN 2, creatinine 0.5. All liver function testing were normal including bilirubin 0.7, AST 24, ALT 24, alk phos 92. Blood culture, no growth. Urine culture, no growth. Stool C. diff toxin antigen and toxin negative. Upper endoscopy revealed gastritis with pathology report showing chronic active gastritis and H. pylori organism negative. Abdominal pelvic CT done by Dr. Jimenez from on June 20, 2017 shows diverticulitis in the descending colon with mural thickening and mesenteric inflammation, less severe than the previous study of 06/10/2017. IMPRESSION: This is a 47-year-old female who has now completed antibiotic therapy for descending colon diverticulitis with comorbidities of anorexia slowly improving and morbid obesity as well as chronic gastritis and degenerative arthritis. All of the above was discussed in detail with the patient and nurse, Renuka Nevarez at the bedside. We are trying to ensure with the help of dietary that the patient is stable for discharge and eating and drinking sufficiently. At present, she is continuing on D5, 0.45 saline at 100 mL per hour. She is receiving Colace 100 mg p.o. daily, Pepcid 40 mg p.o. h.s., soft bland diet, is wearing antiembolism stockings, remains on fall precautions, and it is ordered to be ambulated with insurance sales assistant. Once cleared by GI, she will be discharged to home. They will need to perform an outpatient colonoscopy approximately in two weeks and then to have the patient scheduled for surgical evaluation for possible partial colectomy of the diverticulitis area of her descending colon. All of this was discussed in detail with the patient at the bedside. Greater than fifty minutes was spent in the care management and counseling of this patient today. Hopefully, once she is cleared for discharge, she will be compliant with the above recommendations. Karol Banks MD [facility]
--- NOTE | 2017-06-29 15:46 | CP.PCM.PN ---
<Renuka Nevarez - Last Filed: 06/29/17 15:42> Subjective - Date & Time of Evaluation Date of Evaluation: 06/29/17 Time of Evaluation: 10:45 - Subjective Subjective: Seen and examined at the bedside earlier today, the chart was reviewed. Patient was on calorie count, and as per dietitian assessment patient is not consuming enough calories. The patient denies nausea, abdominal discomfort is better. Having formed bowel movement, No reports of bleeding. no reports of fever, chills, shortness of breath, or chest pain. Objective - Vital Signs/Intake and Output Vital Signs (last 24 hours): Temp Pulse Resp BP Pulse Ox 98.6 F 80 18 113/70 97 06/29/17 08:41 06/29/17 08:41 06/29/17 08:41 06/29/17 08:41 06/29/17 08:41 Intake and Output: 06/29/17 06/29/17 06:59 18:59 Intake Total 1080 Balance 1080 - Medications Medications: Current Medications Acetaminophen (Tylenol 325mg Tab) 650 mg PO Q6H PRN PRN Reason: Pain, moderate (4-7) Last Admin: 06/29/17 10:37 Dose: 650 mg Docusate Sodium (Colace) 100 mg PO DAILY [facility] Last Admin: 06/29/17 09:48 Dose: 100 mg Famotidine (Pepcid) 40 mg PO HS [facility] Last Admin: 06/28/17 21:14 Dose: Not Given Dextrose/Sodium Chloride (Dextrose 5%/0.45% Ns 1000 Ml) 1,000 mls @ 100 mls/hr IV .Q10H [facility] Last Admin: 06/29/17 09:52 Dose: 100 mls/hr Nitroglycerin (Nitro-Bid 2% Oint) 1 ea TOP Q4H PRN PRN Reason: Other Ondansetron HCl (Zofran Inj) 4 mg IVP Q6H PRN PRN Reason: Nausea/Vomiting Last Admin: 06/28/17 14:13 Dose: 4 mg - Labs Labs: 06/27/17 07:14 06/29/17 07:45 PT 12.6 Seconds (9.9-11.8) H 06/19/17 11:41 INR 1.17 (0.93-1.08) H 06/19/17 11:41 APTT 38.7 Seconds (23.7-30.8) H 06/19/17 11:41 - Constitutional Appears: No Acute Distress - Eye Exam Eye Exam: Normal appearance. absent: Scleral icterus - ENT Exam ENT Exam: Mucous Membranes Moist - Neck Exam Neck Exam: Normal Inspection - Respiratory Exam Respiratory Exam: Clear to Ausculation Bilateral, NORMAL BREATHING PATTERN. absent: Respiratory Distress - GI/Abdominal Exam GI & Abdominal Exam: Soft, Normal Bowel Sounds. absent: Guarding, Tenderness, Organomegaly, Rebound - Extremities Exam Extremities Exam: absent: Calf Tenderness, Pedal Edema - Neurological Exam Neurological Exam: Alert, Awake, Oriented x3 Assessment and Plan - Assessment and Plan (Free Text) Assessment: Assessment: Resolving Diverticulitis w/ microperforation, patient did have repeat CT scan showing improvement Obesity Resolved Hypokalemia History of sciatica Anorexia Generalized weakness Plan: continue soft low residual On IV fluids Continue GI prophylaxis, she is on Pepcid MiraLAX DC OFF antibiotics out of bed/Ambulating in the hallway replace K+ as needed Elective colonoscopy outpatient and surgical evaluation for colon resection in view of the microperforation after the colonoscopy. Detailed discussion done with patient and Dr. Hameed at the bedside, patient wants to go home but agreed to stay 1 more day. Increasing her fluid and oral intake. Patient was informed that she is not taking enough calories at this point to be sent home. patient will be given a date for outpatient colonoscopy in 2 weeks' time, that would be July 19, 2017 at 9: 15 am, Confirmed patient's phone number: cell # [phone], preparation will be called in, her pharmacy is: [facility]: [phone]. Patient was told to contact our office with any problems. Office contact was given. Seen and discussed with Dr. Jimenez <Jessica Jimenez V - Last Filed: 06/29/17 23:48> Objective - Vital Signs/Intake and Output Vital Signs (last 24 hours): Temp Pulse Resp BP Pulse Ox 98.7 F 75 18 135/81 90 L 06/29/17 16:00 06/29/17 16:00 06/29/17 16:00 06/29/17 16:00 06/29/17 16:00 Intake and Output: 06/29/17 06/30/17 18:59 06:59 Intake Total 180 520 Balance 180 520 - Medications Medications: Current Medications Acetaminophen (Tylenol 325mg Tab) 650 mg PO Q6H PRN PRN Reason: Pain, moderate (4-7) Last Admin: 06/29/17 10:37 Dose: 650 mg Docusate Sodium (Colace) 100 mg PO DAILY [facility] Last Admin: 06/29/17 09:48 Dose: 100 mg Famotidine (Pepcid) 40 mg PO HS [facility] Last Admin: 06/29/17 21:40 Dose: 40 mg Dextrose/Sodium Chloride (Dextrose 5%/0.45% Ns 1000 Ml) 1,000 mls @ 100 mls/hr IV .Q10H [facility] Last Admin: 06/29/17 09:52 Dose: 100 mls/hr Nitroglycerin (Nitro-Bid 2% Oint) 1 ea TOP Q4H PRN PRN Reason: Other Ondansetron HCl (Zofran Inj) 4 mg IVP Q6H PRN PRN Reason: Nausea/Vomiting Last Admin: 06/28/17 14:13 Dose: 4 mg - Labs Labs: 06/27/17 07:14 06/29/17 07:45 PT 12.6 Seconds (9.9-11.8) H 06/19/17 11:41 INR 1.17 (0.93-1.08) H 06/19/17 11:41 APTT 38.7 Seconds (23.7-30.8) H 06/19/17 11:41 Attending/Attestation - Attestation I have personally seen and examined this patient.: Yes I have fully participated in the care of the patient.: Yes I have reviewed all pertinent clinical information, including history, physical exam and plan: Yes Notes (Text): This is an addendum to GI progress report dictated by Renuka Nevarez APN.The patient was seen and examined earlier. Medical records, lab studies, imagings were reviewed. Last 24 hours events reviewed. Agreed with the above treatment plan as outlined in Renuka Nevarez APN's notes the with the addition of the following feels slightly better Tolerating by mouth better off antibiotics now Would consider colonoscopy in 2 weeks followed by surgical evaluation for colon resection 06/29/17 17:47
[2017-06-30 08:18] VITALS: BP 135/86; PULSE 88; RESP 20; TEMP 99.3; O2SAT 100
--- NOTE | 2017-06-30 15:27 | DS ---
FINAL DIAGNOSES: Diverticulitis, improving, morbid obesity, gastritis, improving anorexia. DISPOSITION: Home. Followup with ERNIE Law for outpatient colonoscopy scheduled on 07/19/2017, 09:15 a.m. The patient is to have outpatient prep and scheduling of colonoscopy as outlined arranged by Dr. Tony KLEIN. DISCHARGE DIET: Mellette. No seeds. No nuts. MEDICATIONS: Pepcid 40 mg p.o. h.s., Colace 100 mg p.o. daily. SUMMARY: This 47-year-old female was readmitted to [facility] for dehydration in the setting of diverticulitis that on followup CAT scan is showing slow, but gradual improvement. The patient could not yet have a colonoscopy due to the severity of her diverticulitis, but it was felt by GI and surgery that she should have an elective colonoscopy and then possible evaluation for colectomy of her colon segment that is affected by the diverticulitis. At the time of discharge, the patient was out of bed to chair, ambulating independently, starting to eat better according to calorie count and dietary followup. PHYSICAL EXAMINATION: VITAL SIGNS: Temperature 98.7, respirations 18, pulse 75, and blood pressure 135/81 with a pulse ox of 100% on room air. LABORATORY DATA: Showed hemoglobin 11.6, hematocrit 35.1. Potassium 3.7, BUN 2, creatinine 0.5. All liver function testing was normal including bilirubin 0.7, AST 24, ALT 24, alkaline phosphatase 92. C. difficile antigen and toxin were negative. Blood culture showed no growth and urine culture showed no growth. The patient is informed of all the above. She is aware it is her responsibility to follow up with Dr. Jimenez on 07/19/2017 for her colonoscopy. Temporary disability forms have been completed and the patient has been advised for any change in signs and symptoms to present directly to the [facility] ER. Karol Banks MD MTDD
--- NOTE | 2017-06-30 17:33 | CP.PCM.PN ---
<Renuka Nevarez - Last Filed: 06/30/17 17:31> Subjective - Date & Time of Evaluation Date of Evaluation: 06/30/17 Time of Evaluation: 10:20 - Subjective Subjective: Seen and examined at the bedside earlier today, the chart was reviewed. No acute overnight events reported. The patient tolerated a bit more oral intake, denies nausea, abdominal discomfort is improving. No reports of fever, chills or overt GI bleed. Objective - Vital Signs/Intake and Output Vital Signs (last 24 hours): Temp Pulse Resp BP Pulse Ox 99.3 F 88 20 135/86 100 06/30/17 08:18 06/30/17 08:18 06/30/17 08:18 06/30/17 08:18 06/30/17 08:18 Intake and Output: 06/30/17 06/30/17 06:59 18:59 Intake Total 520 1440 Balance 520 1440 - Labs Labs: 06/27/17 07:14 06/29/17 07:45 PT 12.6 Seconds (9.9-11.8) H 06/19/17 11:41 INR 1.17 (0.93-1.08) H 06/19/17 11:41 APTT 38.7 Seconds (23.7-30.8) H 06/19/17 11:41 - Constitutional Appears: No Acute Distress - Head Exam Head Exam: NORMOCEPHALIC - Eye Exam Eye Exam: Normal appearance. absent: Scleral icterus - ENT Exam ENT Exam: Mucous Membranes Moist - Neck Exam Neck Exam: Normal Inspection - Respiratory Exam Respiratory Exam: Clear to Ausculation Bilateral, NORMAL BREATHING PATTERN. absent: Respiratory Distress - Cardiovascular Exam Cardiovascular Exam: +S1, +S2 - GI/Abdominal Exam GI & Abdominal Exam: Soft, Normal Bowel Sounds. absent: Guarding, Tenderness, Rebound - Extremities Exam Extremities Exam: Normal Capillary Refill. absent: Calf Tenderness, Pedal Edema - Neurological Exam Neurological Exam: Alert, Awake, Oriented x3 - Skin Skin Exam: Dry, Warm Assessment and Plan - Assessment and Plan (Free Text) Assessment: Assessment: Resolving Diverticulitis w/ microperforation, patient did have repeat CT scan showing improvement Obesity Resolved Hypokalemia History of sciatica Anorexia Generalized weakness Plan: continue soft low residual Continue GI prophylaxis, she is on Pepcid OFF antibiotics out of bed/Ambulating in the hallway replace K+ as needed Elective colonoscopy outpatient and surgical evaluation for colon resection in view of the microperforation after the colonoscopy. patient reminded of colonoscopy scheduled in 2 weeks' time, it was discussed in detail with the patient yesterday C yesterday's dictation. Patient will be discharged home today. Discussed again with patient any acute abdominal pain fever or chills to go to the emergency room.space patient was given office contact number in case of any concerns prior to procedure. Seen and discussed with Dr. Jimenez <Jessica Jimenez V - Last Filed: 07/01/17 00:00> Objective - Vital Signs/Intake and Output Vital Signs (last 24 hours): Temp Pulse Resp BP Pulse Ox 99.3 F 88 20 135/86 100 06/30/17 08:18 06/30/17 08:18 06/30/17 08:18 06/30/17 08:18 06/30/17 08:18 Intake and Output: 06/30/17 07/01/17 18:59 06:59 Intake Total 1440 Balance 1440 - Labs Labs: 06/27/17 07:14 06/29/17 07:45 PT 12.6 Seconds (9.9-11.8) H 06/19/17 11:41 INR 1.17 (0.93-1.08) H 06/19/17 11:41 APTT 38.7 Seconds (23.7-30.8) H 06/19/17 11:41 Attending/Attestation - Attestation I have personally seen and examined this patient.: Yes I have fully participated in the care of the patient.: Yes I have reviewed all pertinent clinical information, including history, physical exam and plan: Yes Notes (Text): 07/01/17 00:00 p
== END 2017-06-30 16:10 | disposition home or self-care (01) | DRG 392 ==
LOC: ED 10:01 → ERH 13:22 → 5RSO 14:38
PROVIDERS: ADMIT Internal Medicine; ATTEND Internal Medicine
PROC: 0DB68ZX Excision of Stomach, Via Natural or Artificial Opening Endoscopic, Diagnostic (ICD-10-PCS; principal; 2017-06-22 16:00)
DX: K57.32 Diverticulitis of large intestine without perforation or abscess without bleeding (principal); Z68.42 Body mass index [BMI] 45.0-49.9, adult; K29.50 Unspecified chronic gastritis without bleeding; E86.0 Dehydration; E87.6 Hypokalemia; R62.7 Adult failure to thrive; R63.0 Anorexia; M19.90 Unspecified osteoarthritis, unspecified site; E66.01 Morbid (severe) obesity due to excess calories; M54.32 Sciatica, left side

== ENCOUNTER 2017-07-05 19:36 | Inpatient (IN) | payer BC ==
[2017-07-05 19:36] VITALS: BMI 47.4
[2017-07-05] MEDS ORDERED: Sodium Chloride 0.9% 1,000 ML IV STA ×3 (20:01→23:34)
[2017-07-05 20:23] LABS: VENOUS BLOOD GAS BASE EXCESS 5.2 mmol/L (0.0-2.0); VENOUS BLOOD PH 7.56 (7.32-7.43)
[2017-07-05 20:25] LABS: BASO # 0.01 K/mm3 (0.0-2.0); BASO % 0.1 % (0.0-3.0); EOS % 0.4 % (1.5-5.0); GRAN # 8.68 (1.4-6.5); GRAN % 80.2 % (50.0-68.0); HEMATOCRIT 36.7 % (36.0-48.0); LYMPH # 0.8 (1.2-3.4); LYMPH % 7.7 % (22.0-35.0); MEAN CELL VOLUME 85.9 fl (80.0-105.0); MEAN CORPUSCULAR HEMOGLOBIN 29.7 pg (25.0-35.0); MEAN CORPUSCULAR HGB CONC 34.6 g/dl (31.0-37.0); MEAN PLATELET VOLUME 9.4 fl (7.0-11.0); MONO # 1.3 (0.1-0.6); MONO % 11.6 % (1.0-6.0); RED CELL DISTRIBUTION WIDTH 12.4 % (11.5-14.5); WHITE BLOOD COUNT 10.8 10^3/ul (4.5-11.0)
[2017-07-05 20:41] LABS: INR 1.19 (0.93-1.08); PARTIAL THROMBOPLASTIN TIME 29.7 Seconds (23.7-30.8)
[2017-07-05 20:47] LABS: ALB/GLOB RATIO 0.9 (1.1-1.8); ALKALINE PHOSPHATASE 105 U/L (38-126); ALT/SGPT 14 U/L (7-56); AMYLASE 88 U/L (35-125); AST/SGOT 44 U/L (14-36); BLOOD UREA NITROGEN 3 mg/dL (7-21); CALCIUM 9.5 mg/dL (8.4-10.5); CARBON DIOXIDE 24 mmol/L (21-33); CHLORIDE 95 mmol/L (98-107); GFR AFRICAN-AMERICAN > 60; GLUCOSE,RANDOM 113 mg/dL (70-110); LIPASE 105 U/L (23-300); POTASSIUM 3.7 mmol/L (3.6-5.0); SODIUM 135 mmol/L (132-148); TOTAL PROTEIN 8.3 g/dL (5.8-8.3)
[2017-07-05 21:00] LABS: TROPONIN I < 0.01 ng/mL
[2017-07-05 21:36] LABS: URINE APPEARANCE CLEAR (CLEAR); URINE BILIRUBIN NEGATIVE (NEGATIVE); URINE BLOOD NEGATIVE (NEGATIVE); URINE COLOR YELLOW (YELLOW); URINE GLUCOSE (UA) NEGATIVE (NEGATIVE); URINE KETONE 15 mg/dL (NEGATIVE); URINE LEUKOCYTE ESTERASE SMALL Leu/uL (NEGATIVE); URINE PROTEIN NEGATIVE mg/dL (<30 mg/dL); URINE UROBILINOGEN 0.2 E.U./dL (<1 E.U./dL)
[2017-07-05 21:47] LABS: URINE BACTERIA FEW (NEG); URINE RBC 0 - 2 /hpf (0-2); URINE WBC 0 - 2 /hpf (0-6)
--- NOTE | 2017-07-05 22:43 | CT ---
EXAM: CT Abdomen and Pelvis Without Intravenous Contrast EXAM DATE/TIME: 07/05/2017 8:53 PM CLINICAL HISTORY: 47 years old, female; Pain; Abdominal pain; Localized; Left; Patient HX: HX diverticulitis, HX constipation; Additional info: Abd pain TECHNIQUE: Axial computed tomography images of the abdomen and pelvis without intravenous contrast. All CT scans at this facility use one or more dose reduction techniques, viz.: automated exposure control; ma/kV adjustment per patient size (including targeted exams where dose is matched to indication; i.e. head); or iterative reconstruction technique. Coronal and sagittal reformatted images were created and reviewed. COMPARISON: Prior CT abdomen and pelvis of 06/20/2017 FINDINGS: LOWER THORAX: Stable appearance of mildly enlarged mediastinal lymph nodes, in the cardiophrenic angle region. This is of uncertain etiology. ABDOMEN: LIVER: No acute abnormality of the liver identified. GALLBLADDER AND BILE DUCTS: No CT evidence of acute cholecystitis. No evidence of significant biliary ductal dilatation. PANCREAS: No CT evidence of acute pancreatitis. SPLEEN: No acute abnormality of the spleen identified. ADRENALS: No acute abnormality of the adrenal glands identified. KIDNEYS AND URETERS: No acute abnormality of the kidneys seen. STOMACH AND BOWEL: Compared to the prior study, there is persistence of abnormal segmental wall thickening involving the mid descending colon. This is associated with pericolonic soft tissue, pericolonic fluid, and pericolonic fat infiltration. The pericolonic soft tissue is significant, measuring up to at least 7 cm in size, and it is mainly located medial to the descending colon. Best seen on images 78-82 of series 2, there are new, tiny foci of air abutting the distal descending colon medially, suspicious for a new microperforation/focal perforation of the colon. There is no evidence of diffuse free intraperitoneal air. Colonic diverticulosis is noted, but there is no definite focally inflamed colonic diverticulum seen. The colon is diffusely fluid filled and, without evidence of obstructive dilatation. Otherwise, no significant abnormality of the bowel is identified. No evidence of small bowel obstruction. APPENDIX: High density material seen in the lumen of the appendix. This could represent retained oral contrast from a prior study versus appendicoliths. There are no findings to suggest acute appendicitis. PELVIS: BLADDER: Moderate diffuse thickening of the bladder wall. The bladder is decompressed. REPRODUCTIVE: Stable areas of diffuse enlargement of the uterus, most likely secondary to fibroids. ABDOMEN and PELVIS: INTRAPERITONEAL SPACE: See above. No evidence of significant free fluid. BONES/JOINTS: No acute fractures or other acute bony abnormality noted. SOFT TISSUES: No acute abnormality of the visualized soft tissues is seen. VASCULATURE: No evidence of abdominal aortic aneurysm. No evidence of periaortic hemorrhage. LYMPH NODES: No evidence of diffuse pathologic lymphadenopathy. IMPRESSION: - Findings suspicious for a microperforation/focal perforation involving the descending colon. No evidence of diffuse free air. - Compared to a CT done 15 days prior, persistent segmental wall thickening and pericolonic soft tissue involving the descending colon. Although the findings could be due to persistent diverticulitis, the pericolonic soft tissue and absence of change raises suspicion for neoplastic wall thickening, i.e., a colonic mass with pericolonic extension. Further workup is recommended. - Bladder wall thickening. This is a nonspecific finding, but can be seen with cystitis. Recommend clinical correlation. - Mild mediastinal lymphadenopathy incidentally noted. - See above for remaining findings.
[2017-07-05] MEDS ORDERED: cefTRIAXone 1 gm 1 GM/100 ML BAG IVPB STA (22:47)
[2017-07-05] MEDS ORDERED: metroNIDAZOLE IV 500 mg/100 ml 500 MG/100 ML BAG IVPB STA (22:47)
--- NOTE | 2017-07-05 22:53 | ED PDOC ---
Arrival/HPI - General Chief Complaint: Weakness/Neurological Deficit Time Seen by Provider: 07/05/17 19:54 Historian: Patient - History of Present Illness Narrative History of Present Illness (Text): 07/05/17 22:51 A 47 year old female, whose past medical history includes diverticulitis, presents to the emergency department complaining of abdominal pain, vomiting and dehydration. Patient reports she can't hold any liquids or foods. Patient denies any fever, dysuria, vaginal bleeding, back pain or any other complaints at this time. Symptom Onset: Sudden Symptom Course: Unchanged Activities at Onset: Rest Context: Home Past Medical History - Provider Review Nursing Documentation Reviewed: Yes - Infectious Disease Hx of Infectious Diseases: None - Tetanus Immunization Tetanus Immunization: Unknown - Cardiac Hx Cardiac Disorders: No - Pulmonary Hx Respiratory Disorders: No - Neurological Hx Neurological Disorder: No - HEENT Hx HEENT Disorder: No - Renal Hx Renal Disorder: No - Endocrine/Metabolic Hx Endocrine Disorders: No - Hematological/Oncological Hx Blood Transfusions: No - Integumentary Hx Dermatological Disorder: No - Musculoskeletal/Rheumatological Hx Musculoskeletal Disorders: Yes Hx Back Pain: Yes - Gastrointestinal Hx Constipation: Yes Hx Diverticulitis: Yes - Genitourinary/Gynecological Hx Genitourinary Disorders: No - Psychiatric Hx Psychophysiologic Disorder: No Hx Substance Use: No - Anesthesia Hx Anesthesia Reactions: No Hx Malignant Hyperthermia: No Family/Social History - Physician Review Nursing Documentation Reviewed: Yes Family/Social History: No Known Family HX Smoking Status: Never Smoked Hx Alcohol Use: No Hx Substance Use: No Allergies/Home Meds Allergies/Adverse Reactions: Allergies No Known Allergies Allergy (Verified 07/05/17 19:58) Review of Systems - Physician Review All systems were reviewed & negative as marked: Yes - Review of Systems Constitutional: Other (dehydration). absent: Fevers Gastrointestinal: Abdominal Pain, Vomiting Genitourinary Female: absent: Dysuria, Vaginal Bleeding Musculoskeletal: absent: Back Pain Physical Exam Vital Signs Reviewed: Yes Vital Signs Temp Pulse Resp BP Pulse Ox 07/06/17 00:12 87 16 119/79 95 07/05/17 23:00 94 H 18 129/73 96 07/05/17 19:59 98.2 F 112 H 20 124/79 97 Temperature: Afebrile Blood Pressure: Normal Pulse: Tachycardic Respiratory Rate: Normal Appearance: Positive for: Comfortable, Other (obese) Pain Distress: None Mental Status: Positive for: Alert and Oriented X 3 - Systems Exam Head: Present: Atraumatic, Normocephalic Pupils: Present: PERRL Extroacular Muscles: Present: EOMI Conjunctiva: Present: Normal Mouth: Present: Moist Mucous Membranes Neck: Present: Normal Range of Motion Respiratory/Chest: Present: Clear to Auscultation, Good Air Exchange. No: Respiratory Distress, Accessory Muscle Use Cardiovascular: Present: Regular Rate and Rhythm, Normal S1, S2. No: Murmurs Abdomen: Present: Normal Bowel Sounds. No: Tenderness, Distention, Peritoneal Signs Back: Present: Normal Inspection Upper Extremity: Present: Normal Inspection. No: Cyanosis, Edema Lower Extremity: Present: Normal Inspection. No: Edema Neurological: Present: GCS=15, CN II-XII Intact, Speech Normal Skin: Present: Warm, Dry, Normal Color. No: Rashes Psychiatric: Present: Alert, Oriented x 3, Normal Insight, Normal Concentration Medical Decision Making ED Course and Treatment: 07/05/17 22:50 Impression: A 47 year old female with abdominal pain, vomiting and dehydration. Plan: -- EKG -- chest xray -- CT abd/pelvis -- labs -- IV fluids, Zofran, Flagyl, Rocephin -- Urinalysis -- Reassess and disposition Prior Visits: Notes and results from previous visits were reviewed. Patient last reported to the emergency department on 06/19/17 for evaluation of left upper quadrant abdominal pain. Progress Notes: EKG: Ordered, reviewed, and independently interpreted the EKG. Rate : 97 BPM Rhythm : NSR Interpretation : Nonspecific ST segment changes chest xray: No free air, interpreted by me. CT Abdomen and Pelvis Without Intravenous Contrast IMPRESSION: - Findings suspicious for a microperforation/focal perforation involving the descending colon. No evidence of diffuse free air. - Compared to a CT done 15 days prior, persistent segmental wall thickening and pericolonic soft tissue involving the descending colon. Although the findings could be due to persistent diverticulitis, the pericolonic soft tissue and absence of change raises suspicion for neoplastic wall thickening, i.e., a colonic mass with pericolonic extension. Further workup is recommended. - Bladder wall thickening. This is a nonspecific finding, but can be seen with cystitis. Recommend clinical correlation. - Mild mediastinal lymphadenopathy incidentally noted. - See above for remaining findings. Dictated and Authenticated by: Jyothi Luo MD 07/05/2017 10:43 PM Eastern Time ([place] & [place]) case d/w dr long and rikki and surgical specialist will admit for diverticulitis with perforation - Lab Interpretations Lab Results: 07/05/17 20:10 07/05/17 20:10 Lab Results 07/05/17 21:15: Urine Color Yellow, Urine Appearance Clear, Urine pH 7.0, Ur Specific [place] <= 1.005, Urine Protein Negative, Urine Glucose (UA) Negative, Urine Ketones 15 H, Urine Blood Negative, Urine Nitrate Negative, Urine Bilirubin Negative, Urine Urobilinogen 0.2, Ur Leukocyte Esterase Small H, Urine RBC 0 - 2, Urine WBC 0 - 2, Ur Epithelial Cells 3 - 4, Urine Bacteria Few 07/05/17 20:10: pO2 70 H, VBG pH 7.56 H, VBG pCO2 30.0 L, VBG HCO3 26.9, VBG Total CO2 27.8, VBG O2 Sat (Calc) 97.7 H, VBG Base Excess 5.2 H, VBG Potassium 4.4, Sodium 131.0 L, Chloride 98.0, Glucose 112 H, Lactate 1.6, FiO2 21.0, Venous Blood Potassium 4.4 07/05/17 20:10: Sodium 135, Chloride 95 L, Potassium 3.7, Carbon Dioxide 24, Anion Gap 20, BUN 3 L, Creatinine 0.5, Est GFR ( Amer) > 60, Est GFR (Non -Af Amer) > 60, Random Glucose 113 H, Calcium 9.5, Total Bilirubin 1.0, AST 44 H D, ALT 14, Alkaline Phosphatase 105, Lactate Dehydrogenase 727 H, Total Creatine Kinase 28 L, Troponin I < 0.01, Total Protein 8.3, Albumin 3.9, Globulin 4.4, Albumin/Globulin Ratio 0.9 L, Amylase 88, Lipase 105 07/05/17 20:10: PT 12.8 H, INR 1.19 H, APTT 29.7 07/05/17 20:10: WBC 10.8 D, RBC 4.27, Hgb 12.7, Hct 36.7, MCV 85.9, MCH 29.7, MCHC 34.6, RDW 12.4, Plt Count 422, MPV 9.4, Gran % 80.2 H, Lymph % (Auto) 7.7 L , [place] % (Auto) 11.6 H, Eos % (Auto) 0.4 L, Baso % (Auto) 0.1, Gran # 8.68 H, Lymph # 0.8 L, [place] # 1.3 H, Eos # 0.0, Baso # 0.01 I have reviewed the lab results: Yes - RAD Interpretation Radiology Orders: 07/05/17 20:02 CHEST PORTABLE [RAD] Stat 07/05/17 20:53 ABD & PELVIS W/O PO OR IV CONT [CT] Stat - EKG Interpretation Interpreted by ED Physician: Yes Type: 12 lead EKG - Medication Orders Current Medication Orders: Acetaminophen (Tylenol 325mg Tab) 650 mg PO Q4H PRN PRN Reason: Fever >100.5 F Sodium Chloride (Sodium Chloride 0.9%) 1,000 mls @ 100 mls/hr IV .Q10H STA Stop: 07/06/17 09:33 Last Admin: 07/05/17 23:56 Dose: 100 mls/hr eMAR Start Stop Document 07/05/17 23:56 YP (Rec: 07/05/17 23:57 YP [id number]) Intravenous Solution Start Date 07/05/17 Start Time 23:57 Metronidazole (Flagyl) 500 mg in 100 mls @ 100 mls/hr IVPB Q8 JEANCARLOS PRN Reason: Protocol Ceftriaxone Sodium (Rocephin 2 Gm Ivpb) 2 gm in 100 mls @ 100 mls/hr IVPB DAILY JEANCARLOS PRN Reason: Protocol Morphine Sulfate (Morphine) 2 mg IVP Q4H PRN PRN Reason: Pain, moderate (4-7) Ondansetron HCl (Zofran Inj) 4 mg IVP Q6H PRN PRN Reason: Nausea/Vomiting Discontinued Medications Sodium Chloride (Sodium Chloride 0.9%) 1,000 mls @ 1,000 mls/hr IV .Q1H STA Stop: 07/05/17 21:00 Last Admin: 07/05/17 20:13 Dose: 1,000 mls/hr eMAR Start Stop Document 07/05/17 20:13 YP (Rec: 07/05/17 20:13 YP [id number]) Intravenous Solution Start Date 07/05/17 Start Time 20:13 End Date 07/05/17 End time 21:13 Total Infusion Time 60 Metronidazole (Flagyl) 500 mg in 100 mls @ 100 mls/hr IVPB STAT STA PRN Reason: Protocol Stop: 07/05/17 23:46 Last Admin: 07/06/17 00:09 Dose: 100 mls/hr eMAR Start Stop Document 07/06/17 00:09 YP (Rec: 07/06/17 00:09 YP [id number]) Intravenous Solution Start Date 07/06/17 Start Time 00:09 End Date 07/06/17 End time 01:09 Total Infusion Time 60 Ceftriaxone Sodium (Rocephin 1 Gram Ivpb) 1 gm in 100 mls @ 200 mls/hr IVPB STAT STA PRN Reason: Protocol Stop: 07/05/17 23:16 Last Admin: 07/05/17 23:03 Dose: 200 mls/hr eMAR Start Stop Document 07/05/17 23:03 YP (Rec: 07/05/17 23:03 YP [id number]) Intravenous Solution Start Date 07/05/17 Start Time 23:03 End Date 07/05/17 End time 23:33 Total Infusion Time 30 Ondansetron HCl (Zofran Inj) 4 mg IVP STAT STA Stop: 07/05/17 20:02 Last Admin: 07/05/17 20:13 Dose: 4 mg IVP Administration Document 07/05/17 20:13 YP (Rec: 07/05/17 20:13 YP [id number]) Charges for Administration # of IVP Administrations 1 Ondansetron HCl (Zofran Inj) Confirm Administered Dose 4 mg .ROUTE .STK-MED ONE Stop: 07/05/17 20:12 Last Admin: 07/05/17 20:14 Dose: - Scribe Statement The provider has reviewed the documentation as recorded by the Heber Booker Provider Scribe Attestation: All medical record entries made by the Scribe were at my direction and personally dictated by me. I have reviewed the chart and agree that the record accurately reflects my personal performance of the history, physical exam, medical decision making, and the department course for this patient. I have also personally directed, reviewed, and agree with the discharge instructions and disposition. Disposition/Present on Arrival - Present on Arrival Any Indicators Present on Arrival: No History of DVT/PE: No History of Uncontrolled Diabetes: No Urinary Catheter: No History of Decub. Ulcer: No History Surgical Site Infection Following: None - Disposition Have Diagnosis and Disposition been Completed?: Yes Diagnosis: Diverticulitis, Diverticulitis of colon with perforation Disposition: HOSPITALIZED Disposition Time: 22:50 Condition: FAIR
--- NOTE | 2017-07-05 23:22 | CP.PCM.CON ---
History of Present Illness - History of Present Illness History of Present Illness: Surgery Consult Note. Dr. Calvillo 47yo F with PMHx of diverticulitis, morbid obesity here for evaluation of abdominal pain. Patient states that she was initially diagnosed with acute diverticulitis w/ microperf on 06/03/17. She was treated with IV abx, however, he symptoms never resolved and she returned to the hospital on 06/19 with similar symptoms. She was discharged on 06/30 after receiving another course of inpatient IV antibiotics. Patient return tonight with similar symptoms. Patient with a chief complaint of LLQ abdominal pain and anorexia. She states that she does not have any appetite for any food, liquid or solids. She reports a 40lb weight loss over the past month. She states that the abdominal pain is severe, sharp in quality and worse with deep palpation. Pain does not radiate. She does report nausea and multiple small episodes of vomiting 2 days ago, non-bilious, non-bloody. Does report regular bowel movements, no blood, not dark. Denies any fevers or chills. Does report diaphoresis. Denies any CP/SOB. No RANDOLPH. Does report dizziness. No urinary symptoms. Patient denies ever having a colonoscopy in the past. She states that she was scheduled to undergo a colonoscopy by Dr. Jimenez in about 2 weeks. PMHx: Morbid Obesity, Diverticulitis PSHx: Denies Family Hx: Mother - Hx of "Spine CA" diagnosed at 80. Social Hx: Denies ETOH, Denies Tobacco, Denies drugs. Lives at home with her 3 sons. NKDA Review of Systems - Review of Systems All systems: reviewed and no additional remarkable complaints except - Constitutional Constitutional: Anorexia, Lethargy, Weight Loss. absent: Chills, Fever, Headache - EENT Eyes: absent: Blurred Vision, Discharge - Cardiovascular Cardiovascular: Diaphoresis. absent: Chest Pain, Dyspnea - Respiratory Respiratory: absent: Cough, Dyspnea - Gastrointestinal Gastrointestinal: Abdominal Pain, Nausea, Vomiting. absent: Constipation, Diarrhea, Hematemesis, Hematochezia, Melena - Genitourinary Genitourinary: absent: Difficulty Urinating, Dysuria - Musculoskeletal Musculoskeletal: absent: Back Pain Past Patient History - Infectious Disease Hx of Infectious Diseases: None - Tetanus Immunizations Tetanus Immunization: Unknown - Past Medical History & Family History Past Family History: Reviewed and not pertinent - Past Social History Smoking Status: Never Smoked Alcohol: None Drugs: Denies - CARDIAC Hx Cardiac Disorders: No - PULMONARY Hx Respiratory Disorders: No - NEUROLOGICAL Hx Neurological Disorder: No - HEENT Hx HEENT Problems: No - RENAL Hx Chronic Kidney Disease: No - ENDOCRINE/METABOLIC Hx Endocrine Disorders: No - HEMATOLOGICAL/ONCOLOGICAL Hx Blood Transfusions: No - INTEGUMENTARY Hx Dermatological Problems: No - MUSCULOSKELETAL/RHEUMATOLOGICAL Hx Musculoskeletal Disorders: Yes Hx Back Pain: Yes - GASTROINTESTINAL Hx Constipation: Yes Hx Diverticulitis: Yes - GENITOURINARY/GYNECOLOGICAL Hx Genitourinary Disorders: No - PSYCHIATRIC Hx Psychophysiologic Disorder: No Hx Substance Use: No - SURGICAL HISTORY Hx Surgeries: No - ANESTHESIA Hx Anesthesia Reactions: No Hx Malignant Hyperthermia: No Meds Allergies/Adverse Reactions: Allergies Allergy/AdvReac Type Severity Reaction Status Date / Time No Known Allergies Allergy Verified 07/05/17 19:58 - Medications Medications: Current Medications Metronidazole (Flagyl) 500 mg in 100 mls @ 100 mls/hr IVPB STAT STA PRN Reason: Protocol Stop: 07/05/17 23:46 Physical Exam - Constitutional Appears: Well, No Acute Distress, Older Than Stated Age - Head Exam Head Exam: ATRAUMATIC, NORMAL INSPECTION, NORMOCEPHALIC - Eye Exam Eye Exam: EOMI - ENT Exam ENT Exam: Mucous Membranes Dry - Respiratory Exam Respiratory Exam: Clear to Auscultation Bilateral, NORMAL BREATHING PATTERN. absent: Decreased Breath Sounds, Rales, Rhonchi, Wheezes, Respiratory Distress - Cardiovascular Exam Cardiovascular Exam: RRR, +S1, +S2. absent: Diastolic murmur, JVD, Systolic Murmur - GI/Abdominal Exam GI & Abdominal Exam: Soft. absent: Distended, Rebound, Rigid Additional comments: LLQ tender to deep palpitation - Extremities Exam Extremities exam: Positive for: normal inspection. Negative for: calf tenderness, pedal edema - Neurological Exam Neurological exam: Alert, CN II-XII Intact, Oriented x3 - Psychiatric Exam Psychiatric exam: Normal Affect, Normal Mood - Skin Skin Exam: Dry, Intact, Normal Color, Warm Results - Vital Signs Recent Vital Signs: Last Vital Signs Temp 98.2 F 07/05/17 19:59 Pulse 94 H 07/05/17 23:00 Resp 18 07/05/17 23:00 BP 129/73 07/05/17 23:00 Pulse Ox 96 09/26/17 23:00 - Labs Result Diagrams: 07/05/17 20:10 07/05/17 20:10 Assessment & Plan - Assessment and Plan (Free Text) Assessment: 47yo F with PMH of diverticulitits and morbid obesity here with recurrent left sided diverticulitis and anorexia (~40 lb weight loss) - consider malignant process - CT scan noted. persistent finding of diverticulitis w microperf at descending colon. Compared to previous CT scans - No Leukocytosis, afebrile - Mild elevation of AST and LDH - NPO for now. Will reassess in the AM - IVF - IV Abx - f/u AM labs - f/u Hep panel - Consult GI - Zofran - Pain management Further recs as per Dr. Rajinder Rod PGY1 surgery pager: [phone]
[2017-07-05] MEDS ORDERED: Morphine 2 mg/ml ISec IVP PRN (23:35)
[2017-07-06] MEDS: metroNIDAZOLE IV 500 mg/100 ml 500 MG/100 ML BAG IVPB SCH ×3 (06:12→21:28)
[2017-07-06 06:55] LABS: BASO # 0.01 K/mm3 (0.0-2.0); BASO % 0.1 % (0.0-3.0); EOS # 0.1 (0.0-0.7); EOS % 0.4 % (1.5-5.0); GRAN # 9.48 (1.4-6.5); GRAN % 82.9 % (50.0-68.0); HEMATOCRIT 37.2 % (36.0-48.0); LYMPH # 0.8 (1.2-3.4); LYMPH % 6.6 % (22.0-35.0); MEAN CELL VOLUME 87.1 fl (80.0-105.0); MEAN CORPUSCULAR HGB CONC 33.3 g/dl (31.0-37.0); MEAN PLATELET VOLUME 9.3 fl (7.0-11.0); MONO # 1.2 (0.1-0.6); RED CELL DISTRIBUTION WIDTH 12.4 % (11.5-14.5); WHITE BLOOD COUNT 11.5 10^3/ul (4.5-11.0)
[2017-07-06 07:16] LABS: ALB/GLOB RATIO 0.9 (1.1-1.8); ALKALINE PHOSPHATASE 98 U/L (38-126); ALT/SGPT 17 U/L (7-56); AST/SGOT 37 U/L (14-36); BILIRUBIN,TOTAL 0.7 mg/dL (0.2-1.3); BLOOD UREA NITROGEN 3 mg/dL (7-21); CARBON DIOXIDE 26 mmol/L (21-33); CHLORIDE 100 mmol/L (98-107); GFR AFRICAN-AMERICAN > 60; GLUCOSE,RANDOM 101 mg/dL (70-110); MAGNESIUM 1.7 mg/dL (1.7-2.2); POTASSIUM 3.9 mmol/L (3.6-5.0); SODIUM 139 mmol/L (132-148); TOTAL PROTEIN 7.9 g/dL (5.8-8.3)
[2017-07-06] MEDS: cefTRIAXone 2 GM IN NS 2 GM/100 ML BAG IVPB SCH (09:22)
--- NOTE | 2017-07-06 09:51 | RAD ---
HISTORY: abd pain COMPARISON: Portable chest 06/05/2017. FINDINGS: LUNGS: Inspiratory volume appears diminished however there is no acute infiltrate identified bilaterally. PLEURA: No significant pleural effusion identified, no pneumothorax apparent. CARDIOVASCULAR: Normal. OSSEOUS STRUCTURES: No significant abnormalities. VISUALIZED UPPER ABDOMEN: Normal. OTHER FINDINGS: None. IMPRESSION: Diminished inspiratory volume. Exam otherwise unremarkable and stable.
--- NOTE | 2017-07-06 10:11 | CP.PCM.CON ---
<Gm Morris - Last Filed: 07/06/17 10:16> History of Present Illness - History of Present Illness History of Present Illness: GI: Dr. Jimenez CC: Abd pain HPI: 47F w. recurrent acute sigmoid diverticulitis. She has been hospitalized , 06/19/17, 06/30/17, and the most recent 07/05/17 with diverticulitis. She has complaints of a sharp intermittent LLQ pain. She states that the pain is occasionally exacerbated by diet. She states that the pain is accompanied by decreased appetite, occasional N/V, +Diarrhea non-bloody, she reports F/C, and a general feeling if weakness/fatigue which she attributes to her decreased PO intake. She reports RANDOLPH and mild SOB. CT done in ED showed persistent thickening of descending colon w. microperf, no free air. 12 Pt ROS negative unless specified PMH: Obesity, diverticulitis PSH: none Meds: MAR reviewed NKDA Social: No ETOH, tobacco, drugs Fhx: Non-contributory Past Patient History - Infectious Disease Hx of Infectious Diseases: None - Tetanus Immunizations Tetanus Immunization: Unknown - Past Medical History & Family History Past Family History: Reviewed and not pertinent - Past Social History Smoking Status: Never Smoked - CARDIAC Hx Cardiac Disorders: No - PULMONARY Hx Respiratory Disorders: No - NEUROLOGICAL Hx Neurological Disorder: No - HEENT Hx HEENT Problems: No - RENAL Hx Chronic Kidney Disease: No - ENDOCRINE/METABOLIC Hx Endocrine Disorders: No - HEMATOLOGICAL/ONCOLOGICAL Hx Blood Transfusions: No - INTEGUMENTARY Hx Dermatological Problems: No - MUSCULOSKELETAL/RHEUMATOLOGICAL Hx Musculoskeletal Disorders: Yes Hx Back Pain: Yes - GASTROINTESTINAL Hx Constipation: Yes Hx Diverticulitis: Yes - GENITOURINARY/GYNECOLOGICAL Hx Genitourinary Disorders: No - PSYCHIATRIC Hx Psychophysiologic Disorder: No Hx Substance Use: No - SURGICAL HISTORY Hx Surgeries: No - ANESTHESIA Hx Anesthesia Reactions: No Hx Malignant Hyperthermia: No Meds Allergies/Adverse Reactions: Allergies Allergy/AdvReac Type Severity Reaction Status Date / Time No Known Allergies Allergy Verified 07/05/17 19:58 - Medications Medications: Current Medications Acetaminophen (Tylenol 325mg Tab) 650 mg PO Q4H PRN PRN Reason: Fever >100.5 F Metronidazole (Flagyl) 500 mg in 100 mls @ 100 mls/hr IVPB Q8 JEANCARLOS PRN Reason: Protocol Last Admin: 07/06/17 06:12 Dose: 100 mls/hr Ceftriaxone Sodium (Rocephin 2 Gm Ivpb) 2 gm in 100 mls @ 100 mls/hr IVPB DAILY JEANCARLOS PRN Reason: Protocol Last Admin: 07/06/17 09:22 Dose: 100 mls/hr Dextrose/Sodium Chloride (Dextrose 5%/0.45% Ns 1000 Ml) 1,000 mls @ 100 mls/hr IV .Q10H JEANCARLOS Morphine Sulfate (Morphine) 2 mg IVP Q4H PRN PRN Reason: Pain, moderate (4-7) Last Admin: 07/06/17 06:36 Dose: 2 mg Ondansetron HCl (Zofran Inj) 4 mg IVP Q6H PRN PRN Reason: Nausea/Vomiting Last Admin: 07/06/17 08:08 Dose: 4 mg Physical Exam - Constitutional Appears: Non-toxic, No Acute Distress - Head Exam Head Exam: ATRAUMATIC, NORMOCEPHALIC - Eye Exam Eye Exam: EOMI. absent: Scleral icterus Pupil Exam: PERRL - ENT Exam ENT Exam: Mucous Membranes Moist, Normal External Ear Exam - Neck Exam Neck exam: Positive for: Full Rom - Respiratory Exam Respiratory Exam: NORMAL BREATHING PATTERN. absent: Accessory Muscle Use, Respiratory Distress - GI/Abdominal Exam GI & Abdominal Exam: Soft, Tenderness (LLQ). absent: Distended, Firm, Guarding , Rebound, Rigid - Extremities Exam Extremities exam: Negative for: calf tenderness, pedal edema - Neurological Exam Neurological exam: Alert, Oriented x3 - Psychiatric Exam Psychiatric exam: Normal Affect, Normal Mood - Skin Skin Exam: Dry, Normal Color, Warm Results - Vital Signs Recent Vital Signs: Last Vital Signs Temp 98.8 F 07/06/17 08:00 Pulse 100 H 07/06/17 08:00 Resp 20 07/06/17 08:00 BP 152/80 H 07/06/17 08:00 Pulse Ox 96 07/06/17 08:00 - Labs Result Diagrams: 07/06/17 06:47 07/06/17 06:47 Labs: Laboratory Results - last 24 hr 07/06/17 07/06/17 07/06/17 06:30 06:47 06:47 WBC 11.5 H RBC 4.27 Hgb 12.4 Hct 37.2 MCV 87.1 MCH 29.0 MCHC 33.3 RDW 12.4 Plt Count 414 MPV 9.3 Gran % 82.9 H Lymph % (Auto) 6.6 L Sheridan % (Auto) 10.0 H Eos % (Auto) 0.4 L Baso % (Auto) 0.1 Gran # 9.48 H Lymph # 0.8 L Sheridan # 1.2 H Eos # 0.1 Baso # 0.01 Sodium 139 Potassium 3.9 Chloride 100 Carbon Dioxide 26 Anion Gap 17 BUN 3 L Creatinine 0.5 Est GFR ( Amer) > 60 Est GFR (Non-Af Amer) > 60 Random Glucose 101 Lactic Acid 0.9 Calcium 9.0 Phosphorus 4.0 Magnesium 1.7 Total Bilirubin 0.7 AST 37 H ALT 17 Alkaline Phosphatase 98 Total Protein 7.9 Albumin 3.7 Globulin 4.2 Albumin/Globulin Ratio 0.9 L - Imaging and Cardiology CT scan - abdomen Status: Image reviewed by me, Report reviewed by me Assessment & Plan - Assessment and Plan (Free Text) Assessment: 47F w. recurrent acute diverticulitis, this is her 4th episode in the past month -NPO -IVF -abx -pain management -serial abd exams -Given this is pts 4th episode in the past month, with prior 3 episodes failing conservative management, recommend surigcal intervention for colectomy -case d/w attending Arturo PGY3 <Jessica Jimenez V - Last Filed: 07/06/17 23:55> Meds - Medications Medications: Current Medications Acetaminophen (Tylenol 325mg Tab) 650 mg PO Q4H PRN PRN Reason: Fever >100.5 F Last Admin: 07/06/17 16:24 Dose: 650 mg Metronidazole (Flagyl) 500 mg in 100 mls @ 100 mls/hr IVPB Q8 JEANCARLOS PRN Reason: Protocol Last Admin: 07/06/17 21:28 Dose: 100 mls/hr Ceftriaxone Sodium (Rocephin 2 Gm Ivpb) 2 gm in 100 mls @ 100 mls/hr IVPB DAILY JEANCARLOS PRN Reason: Protocol Last Admin: 07/06/17 09:22 Dose: 100 mls/hr Dextrose/Sodium Chloride (Dextrose 5%/0.45% Ns 1000 Ml) 1,000 mls @ 100 mls/hr IV .Q10H JEANCARLOS Last Admin: 07/06/17 13:09 Dose: 100 mls/hr Morphine Sulfate (Morphine) 2 mg IVP Q4H PRN PRN Reason: Pain, moderate (4-7) Last Admin: 07/06/17 06:36 Dose: 2 mg Ondansetron HCl (Zofran Inj) 4 mg IVP Q6H PRN PRN Reason: Nausea/Vomiting Last Admin: 07/06/17 08:08 Dose: 4 mg Results - Vital Signs Recent Vital Signs: Last Vital Signs Temp 101.2 F H 07/06/17 16:24 Pulse 98 H 07/06/17 16:00 Resp 20 07/06/17 16:00 BP 142/85 07/06/17 16:00 Pulse Ox 99 07/06/17 16:00 - Labs Result Diagrams: 07/06/17 06:47 07/06/17 06:47 Labs: Laboratory Results - last 24 hr 07/06/17 07/06/17 07/06/17 06:30 06:30 06:47 WBC RBC Hgb Hct MCV MCH MCHC RDW Plt Count MPV Gran % Lymph % (Auto) Sheridan % (Auto) Eos % (Auto) Baso % (Auto) Gran # Lymph # Sheridan # Eos # Baso # Sodium Potassium Chloride Carbon Dioxide Anion Gap BUN Creatinine Est GFR ( Amer) Est GFR (Non-Af Amer) Random Glucose Lactic Acid 0.9 Calcium Phosphorus Magnesium Total Bilirubin AST ALT Alkaline Phosphatase Total Protein Albumin Globulin Albumin/Globulin Ratio Procalcitonin 0.10 L Hepatitis A IgM Ab Negative Hep Bs Antigen Negative Hep B Core IgM Ab Negative Hepatitis C Antibody Negative Blood Type Antibody Screen BBK History Checked 07/06/17 07/06/17 07/06/17 06:47 06:47 21:06 WBC 11.5 H RBC 4.27 Hgb 12.4 Hct 37.2 MCV 87.1 MCH 29.0 MCHC 33.3 RDW 12.4 Plt Count 414 MPV 9.3 Gran % 82.9 H Lymph % (Auto) 6.6 L Sheridan % (Auto) 10.0 H Eos % (Auto) 0.4 L Baso % (Auto) 0.1 Gran # 9.48 H Lymph # 0.8 L Sheridan # 1.2 H Eos # 0.1 Baso # 0.01 Sodium 139 Potassium 3.9 Chloride 100 Carbon Dioxide 26 Anion Gap 17 BUN 3 L Creatinine 0.5 Est GFR ( Amer) > 60 Est GFR (Non-Af Amer) > 60 Random Glucose 101 Lactic Acid Calcium 9.0 Phosphorus 4.0 Magnesium 1.7 Total Bilirubin 0.7 AST 37 H ALT 17 Alkaline Phosphatase 98 Total Protein 7.9 Albumin 3.7 Globulin 4.2 Albumin/Globulin Ratio 0.9 L Procalcitonin Hepatitis A IgM Ab Hep Bs Antigen Hep B Core IgM Ab Hepatitis C Antibody Blood Type O POSITIVE Antibody Screen Negative BBK History Checked No verified bt Attending/Attestation - Attestation I have personally seen and examined this patient.: Yes I have fully participated in the care of the patient.: Yes I have reviewed all pertinent clinical information: Yes Notes (Text): This is an addendum to GI progress report dictated by Resident.The patient was seen and examined earlier. Medical records, lab studies, imagings were reviewed. Last 24 hours events reviewed. Agreed with the above treatment plan as outlined in Resident's notes the with the addition of the following o/e still has tenderness the same spot left side abdomen dw
[2017-07-06] MEDS ORDERED: Dextrose 5%/0.45% NS 1,000 ML IV SCH (10:15)
[2017-07-06] MEDS ORDERED: Potassium Chl 40 mEq in D5-1/2 1,000 ML IV SCH (10:30)
--- NOTE | 2017-07-06 11:37 | CARD ---
APPROVED REPORT EKG Measurement Heart [id number] <Conclusion> Normal sinus rhythm Minimal voltage criteria for LVH, may be normal variant Borderline ECG
[2017-07-06] MEDS: Dextrose 5%/0.45% NS 1,000 ML IV SCH (13:09)
--- NOTE | 2017-07-06 14:32 | HP ---
HISTORY OF PRESENT ILLNESS: This 47-year-old female is re-admitted for treatment of microperforation and left colon diverticulitis. She was admitted to [facility] in the past for descending colon diverticulitis complicated by morbid obesity and need for outpatient colonoscopy prior to consideration of corrective surgery. The patient was home with a poor appetite, not eating or drinking well and presents to [facility] ER with failure to thrive, clinical dehydration and left lower quadrant abdominal pain. In the emergency room, she was noted to have diverticulitis on CT with microperforation and was admitted for further evaluation of the above. She has been followed in the past by Dr. Delta Calvillo from surgery and Dr. Jessica Jimenez from GI and is awaiting consultation from Dr. Jimenez at this time. Of note, the patient because of persistent anorexia has had weight loss in the past month and she states she had been having bowel movements up until the time of admission that were nonbloody and there was no evidence of melena. She did vomit yesterday and states it was without hematemesis and there was no evidence of bile and is at present awaiting GI evaluation regarding timing of colonoscopy which was initially to be scheduled for July 19. PAST MEDICAL HISTORY: Significant for morbid obesity,degenerative arthritis, diverticulitis of the descending colon. SOCIAL HISTORY: She is a nondrinker, nonsmoker, non IV drug misuser. 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 ALLERGIES: DENIES ANY ALLERGIES TO MEDICATION. FAMILY HISTORY: Noncontributory. REVIEW OF SYSTEMS: HEAD REVIEW: No headache or seizure. EYES REVIEW: No change in visual acuity. EARS REVIEW: No hearing loss. THROAT REVIEW: No swallowing difficulty. NECK REVIEW: No stiffness. CARDIAC REVIEW: No chest pain or palpitation. RESPIRATORY: No cough. No hemoptysis. GASTROINTESTINAL: She has a persistent left lower quadrant abdominal pain, nausea, vomiting. She denied hematemesis or melena. GENITOURINARY: No dysuria. SKIN: Without rash. NEUROLOGICAL: No knowledge of stroke or TIA. VASCULAR: No claudication. MUSCULOSKELETAL: Chronic degenerative arthritis and history of sciatica. PHYSICAL EXAMINATION: GENERAL: The patient is lying in bed, was examined with her nurse, Aleida Wilson, registered nurse, at the bedside. HEENT: Head is normocephalic, atraumatic. Eyes: No icterus. Ears: Clear. Throat: Noninjected. NECK: Supple. HEART: Regular S1, S2. No pathological rubs, murmurs or gallops. LUNGS: Clear to auscultation. ABDOMEN: Obese. There are audible bowel sounds present. There is no rebound, no guarding. EXTREMITIES: Show no clubbing, no cyanosis, no edema. SKIN: Without rash. NEUROLOGICAL: Intact. PSYCHOLOGICAL: Alert. VASCULAR: Legs warm to touch. LABORATORY DATA: Sodium 139, K of 3.9, chloride 100, bicarb 26, BUN 3, creatinine 0.5, random blood sugar is 100. Calcium normal at 9.0. Phosphorous normal at 4.0. Magnesium normal at 1.7. Bilirubin 0.7, AST 37, ALT 17, alk phos 98. White count 11,500; hemoglobin 12.4; hematocrit 37.2; platelets 414,000. PT/INR of 1.19, PTT of 29.7. Urinalysis showed few bacteria, no protein. Blood and urine cultures are received and pending. IMAGING: Also, chest x-ray from the emergency room showed no active disease. Abdominal and pelvic CT, performed July 05 in the emergency room without oral or IV contrast, showed findings suspicious for microperforation involving the descending colon with no evidence of diffuse free air. Compared to a CT done 15 days earlier, it was noted that there was persistent segmental wall thickening and pericolonic soft tissue involving the descending colon and although these findings could be due to persistent diverticulitis, the pericolonic soft tissue and absence of change raises suspicion for a neoplastic wall thickening, for example a colonic mass with pericolonic extension. Further workup was recommended. IMPRESSION: A 47-year-old female with history of colonic diverticulitis, now with recurrent microperforation, rule out colon cancer, rule out persistent diverticulitis; elevated white blood cell count, rule out sepsis; morbid obesity. PLAN: At present is to maintain the patient n.p.o. She is awaiting consultation by Dr. Jessica Jimenez from GI and will be followed by Dr. Delta Calvillo from surgery. She is ordered to have D5 0.45 saline at 100 mL/hour. She is receiving Flagyl 500 mg IV q. 8 and Rocephin 2 g IV q. 24. She is ordered to have morphine 2 mg IV q. 4 hours p.r.n. pain, Tylenol 650 mg p.o. q. 4 hours p.r.n. temperature greater than 101 and Zofran 4 mg IV q. 6 hours p.r.n. nausea, vomiting. I have instructed the patient and her nurse to apply antiembolism stockings every day and to remove them at bedtime and to have the patient out of bed to chair and to ambulate her with assistance. Pending GI eval, timing for colonoscopy will be determined and then, consideration of possible colectomy; this will need to be decided by GI and surgery and the patient at present will have an acute hepatitis panel, comprehensive metabolic panel and CBC in the a.m. We will await the results of her blood and urine cultures and prognosis remains guarded at present. Greater than fifty minutes was spent in the care, management and counselling of this patient today.All of the above was explained in detail to the patient with her nurse at the bedside. All questions were answered. Karol Banks MD MTDMelissa
[2017-07-07] MEDS: Dextrose 5%/0.45% NS 1,000 ML IV SCH ×3 (03:01→17:15)
[2017-07-07] MEDS: metroNIDAZOLE IV 500 mg/100 ml 500 MG/100 ML BAG IVPB SCH ×3 (06:48→22:38)
[2017-07-07] MEDS: cefTRIAXone 2 GM IN NS 2 GM/100 ML BAG IVPB SCH (10:13)
--- NOTE | 2017-07-07 11:21 | CP.PCM.PN ---
Subjective - Date & Time of Evaluation Date of Evaluation: 07/07/17 Time of Evaluation: 10:00 - Subjective Subjective: Patient seen and examined this morning. States she had one bout of non-bloody emesis over night. Having loose BMs. Reports LLQ pain. NAEO. Objective - Vital Signs/Intake and Output Vital Signs (last 24 hours): Temp Pulse Resp BP Pulse Ox 99.2 F 92 H 20 114/68 100 07/07/17 07:30 07/07/17 07:30 07/07/17 07:30 07/07/17 07:30 07/07/17 07:30 Intake and Output: 07/07/17 07/07/17 06:59 18:59 Intake Total 2400 180 Balance 2400 180 - Medications Medications: Current Medications Acetaminophen (Tylenol 325mg Tab) 650 mg PO Q4H PRN PRN Reason: Fever >100.5 F Last Admin: 07/06/17 16:24 Dose: 650 mg Metronidazole (Flagyl) 500 mg in 100 mls @ 100 mls/hr IVPB Q8 JEANCARLOS PRN Reason: Protocol Last Admin: 07/07/17 06:48 Dose: 100 mls/hr Ceftriaxone Sodium (Rocephin 2 Gm Ivpb) 2 gm in 100 mls @ 100 mls/hr IVPB DAILY JEANCARLOS PRN Reason: Protocol Last Admin: 07/07/17 10:13 Dose: 100 mls/hr Dextrose/Sodium Chloride (Dextrose 5%/0.45% Ns 1000 Ml) 1,000 mls @ 100 mls/hr IV .Q10H JEANCARLOS Last Admin: 07/07/17 03:01 Dose: 100 mls/hr Morphine Sulfate (Morphine) 2 mg IVP Q4H PRN PRN Reason: Pain, moderate (4-7) Last Admin: 07/06/17 06:36 Dose: 2 mg Ondansetron HCl (Zofran Inj) 4 mg IVP Q6H PRN PRN Reason: Nausea/Vomiting Last Admin: 07/07/17 10:14 Dose: 4 mg - Labs Labs: 07/06/17 06:47 07/06/17 06:47 PT 12.8 Seconds (9.9-11.8) H 07/05/17 20:10 INR 1.19 (0.93-1.08) H 07/05/17 20:10 APTT 29.7 Seconds (23.7-30.8) 07/05/17 20:10 - Constitutional Appears: No Acute Distress - Head Exam Head Exam: NORMOCEPHALIC - Eye Exam Eye Exam: Normal appearance - ENT Exam ENT Exam: Mucous Membranes Moist - Respiratory Exam Respiratory Exam: NORMAL BREATHING PATTERN - Cardiovascular Exam Cardiovascular Exam: +S1, +S2 - GI/Abdominal Exam GI & Abdominal Exam: Soft, Tenderness. absent: Distended, Firm, Guarding Additional comments: LLQ tenderness - Neurological Exam Neurological Exam: Alert, Awake, Oriented x3 - Psychiatric Exam Psychiatric exam: Normal Mood - Skin Skin Exam: Dry, Intact, Warm Assessment and Plan - Assessment and Plan (Free Text) Assessment: 47F w. recurrent acute diverticulitis, this is her 4th episode in the past month -NPO -IVF -Abx -C/w pain management -GI to do sigmoidoscopy in OR -Bowel prep Andrzej AM -Will plan to follow with surgery for removal of affected large intestinal segment. Type of surgery will be dependent on sigmoidoscopy findings, possible ex-lap, possible Madina's. -Surgical procedure discussed in detail with patient -Further recs per Dr. Rajinder Enriquez PGY-2
--- NOTE | 2017-07-07 14:03 | PN ---
DATE: 07/07/2017 SUBJECTIVE: This 47-year-old female was examined at her bedside. Her case was reviewed in detail with herself, nurse Rhett Tejeda and co-consultants Dr. Delta Calvillo from surgery and Dr. Jessica Jimenez from GI. The patient remains weak and deconditioned secondary to clinical dehydration from poor p.o. intake of food and fluids. At present, she is receiving IV fluids and has been cleared to start a full liquid diet by Dr. Jessica Jimenez from GI. I have had a lengthy discussion with Dr. Jimenez who has discussed this case in detail with Dr. Delta Calvillo from surgery. The plan is to continue IV antibiotics for the next 72 hours. The patient will be taken to the OR Tuesday morning for elective colonoscopy followed by surgery for her persistent left descending colon diverticulitis with microperforation. The patient is aware and in agreement with surgical and gastrointestinal consultants and at present remains chest pain free, denying any chills and running a low-grade temperature of 99.2. She states she had 1 episode of nonbilious vomiting yesterday. She continues to have formed bowel movements and denies any hematemesis or melena. PHYSICAL EXAMINATION: VITAL SIGNS: Temperature is 99.2, respirations 20, pulse 92 and blood pressure 114/68, previously 142/85 with a pulse ox of 100% on room air. HEENT: Head is normocephalic, atraumatic. Eyes: No icterus. Ears: Clear. Throat: Noninjected. NECK: Supple. HEART: Regular S1, S2. No pathological rubs, murmurs or gallops. LUNGS: Clear to auscultation. ABDOMEN: Obese, nontender without palpable organomegaly. There is no rebound, no guarding, no tenderness. EXTREMITIES: Show no clubbing, no cyanosis, no edema. SKIN: Without rash. NEUROLOGICAL: Exam is grossly intact. PSYCHOLOGICAL: Alert and oriented x3. VASCULAR: Legs warm to touch. LABORATORY DATA: White count 11,500; hemoglobin 12.4; hematocrit 37.2; platelets 414,000. PT/INR is 1.19, PTT 29.7. Sodium 139, K is 3.9, chloride 100, bicarb 26, BUN 3, creatinine 0.5, random blood sugar 101. Lactic acid level normal at 0.9. Phosphorous normal at 4.0. Calcium normal at 9.0. Magnesium normal at 1.7. Bilirubin 0.7, AST 37, ALT 17, alk phos 98. Procalcitonin level 0.10, low. Urinalysis showed a few bacteria. Hepatitis A, B, C serology is negative. Urine culture, probable contamination. Blood culture, no growth at 24 hours. IMPRESSION: This is a 47-year-old female with left descending colon diverticulitis, admitted with microperforation and and a low-grade fever and low-grade leukocytosis with recent abdominal pelvic CT showing findings suspicious for microperforation involving the descending colon with no evidence of diffuse free air. This CAT scan compared to one done 15 days prior shows persistent segmental wall thickening and pericolonic soft tissue involving the descending colon and radiology states that although the findings could be due to persistent diverticulitis, the pericolonic soft tissue and absence of change raises suspicion for a neoplastic wall thickening and a colonic wall mass with pericolonic extension. Further workup was recommended and this is why the patient will be undergoing preoperative colonoscopy with Dr. Jimenez as outlined. All of the above was discussed in detail with the patient, Dr. Jimenez and her nurse at the bedside. The patient will continue to receive D5 0.45 saline at 100 mL/hour, Flagyl 500 mg IV q. 8, Rocephin 1 g IV q. 24, heparin 5000 units subQ q. 12 with instructions to be out of bed and ambulated throughout the day. I will order a 2-D echocardiogram for completeness sake and start the patient on metoprolol tartrate 12.5 mg p.o. daily, holding for any systolic blood pressure less than 100 or pulse less than 50. She will also continue on Pepcid 40 mg p.o. at bedtime and Zofran 4 mg IV q. 6 hours p.r.n. nausea or vomiting. I have instructed the patient on the use of incentive spirometry for q. 1 hour. She has been cleared for a liquid diet by Dr. Jimenez. She has been ordered to have antiembolism stockings during the day, to be removed at nighttime, and the patient remains at a moderate increased risk for surgery given her clinical status and morbid obesity. All of the above was discussed in detail with the patient, co-consultants and nursing at length. I will await the results of her echocardiogram and monitor her clinical progress daily. Greater than fifty minutes was spent in the care, management and counseling of this patient today. All questions were answered. Karol Banks MD MTDMelissa
--- NOTE | 2017-07-07 14:50 | CP.PCM.PN ---
<Renuka Nevarez - Last Filed: 07/07/17 14:50> Subjective - Date & Time of Evaluation Date of Evaluation: 07/07/17 Time of Evaluation: 09:35 - Subjective Subjective: Seen and examined at the bedside earlier today, the chart was reviewed. Patient still with abdominal discomfort. She remains nothing by mouth. No reports of fever, chills, shortness of breath or chest pain. No report of nausea or vomiting. No acute overnight events reported. Objective - Vital Signs/Intake and Output Vital Signs (last 24 hours): Temp Pulse Resp BP Pulse Ox 99.2 F 92 H 20 114/68 100 07/07/17 07:30 07/07/17 07:30 07/07/17 07:30 07/07/17 07:30 07/07/17 07:30 Intake and Output: 07/07/17 07/07/17 06:59 18:59 Intake Total 2400 580 Balance 2400 580 - Medications Medications: Current Medications Acetaminophen (Tylenol 325mg Tab) 650 mg PO Q4H PRN PRN Reason: Fever >100.5 F Last Admin: 07/06/17 16:24 Dose: 650 mg Famotidine (Pepcid) 40 mg PO HS [facility] Heparin Sodium (Porcine) (Heparin) 5,000 units SC Q12 [facility] PRN Reason: Protocol Metronidazole (Flagyl) 500 mg in 100 mls @ 100 mls/hr IVPB Q8 [facility] PRN Reason: Protocol Last Admin: 07/07/17 06:48 Dose: 100 mls/hr Dextrose/Sodium Chloride (Dextrose 5%/0.45% Ns 1000 Ml) 1,000 mls @ 100 mls/hr IV .Q10H [facility] Last Admin: 07/07/17 12:48 Dose: 100 mls/hr Ceftriaxone Sodium (Rocephin 1 Gram Ivpb) 1 gm in 100 mls @ 100 mls/hr IVPB DAILY [facility] PRN Reason: Protocol Metoprolol Tartrate (Lopressor) 12.5 mg PO DAILY [facility] Morphine Sulfate (Morphine) 2 mg IVP Q4H PRN PRN Reason: Pain, moderate (4-7) Last Admin: 07/06/17 06:36 Dose: 2 mg Ondansetron HCl (Zofran Inj) 4 mg IVP Q6H PRN PRN Reason: Nausea/Vomiting Last Admin: 07/07/17 10:14 Dose: 4 mg - Labs Labs: 07/06/17 06:47 07/06/17 06:47 PT 12.8 Seconds (9.9-11.8) H 07/05/17 20:10 INR 1.19 (0.93-1.08) H 07/05/17 20:10 APTT 29.7 Seconds (23.7-30.8) 07/05/17 20:10 - Constitutional Appears: No Acute Distress - Eye Exam Eye Exam: Normal appearance. absent: Scleral icterus - ENT Exam ENT Exam: Mucous Membranes Moist - Neck Exam Neck Exam: Normal Inspection - Respiratory Exam Respiratory Exam: Clear to Ausculation Bilateral, NORMAL BREATHING PATTERN. absent: Respiratory Distress - Cardiovascular Exam Cardiovascular Exam: +S1, +S2 - GI/Abdominal Exam GI & Abdominal Exam: Soft, Tenderness (left lower quadrant), Normal Bowel Sounds. absent: Guarding, Rebound - Extremities Exam Extremities Exam: Normal Capillary Refill. absent: Calf Tenderness, Pedal Edema - Neurological Exam Neurological Exam: Alert, Awake, Oriented x3 - Skin Skin Exam: Dry, Warm Assessment and Plan - Assessment and Plan (Free Text) Assessment: Assessment: Recurrent acute diverticulitis Obesity Hypertension Elevated liver enzymes, abd. US 06/06/17neg and hep panel neg, maybe medication induced, will monitor. Plan: Continue nothing by mouth, IV F for hydration Continue IV antibiotics Continue GI prophylaxis Encourage to get OOB/ambulation, pt has TEDS trend LFT Detailed discussion with patient and president and chief commercial officer Mina at the bedside. The plan is for patient to receive antibiotics and we will plan for a flexible sigmoidoscopy on Tuesday, the patient CT scan repeated noted to have a rectum full of stool, the patient will be gently cleansed out, in preparation for Tuesday, with surgical team on hand. Seen and discussed w/ Dr. Jimenez. <Jessica Jimenez V - Last Filed: 07/07/17 23:55> Objective - Vital Signs/Intake and Output Vital Signs (last 24 hours): Temp Pulse Resp BP Pulse Ox 98.3 F 83 18 130/77 99 07/07/17 16:26 07/07/17 16:26 07/07/17 16:26 07/07/17 16:26 07/07/17 16:26 Intake and Output: 07/07/17 07/08/17 18:59 06:59 Intake Total 580 240 Balance 580 240 - Medications Medications: Current Medications Acetaminophen (Tylenol 325mg Tab) 650 mg PO Q4H PRN PRN Reason: Fever >100.5 F Last Admin: 07/06/17 16:24 Dose: 650 mg Famotidine (Pepcid) 40 mg PO HS [facility] Last Admin: 07/07/17 22:38 Dose: 40 mg Heparin Sodium (Porcine) (Heparin) 5,000 units SC Q12 [facility] PRN Reason: Protocol Last Admin: 07/07/17 22:38 Dose: 5,000 units Metronidazole (Flagyl) 500 mg in 100 mls @ 100 mls/hr IVPB Q8 [facility] PRN Reason: Protocol Last Admin: 07/07/17 22:38 Dose: 100 mls/hr Dextrose/Sodium Chloride (Dextrose 5%/0.45% Ns 1000 Ml) 1,000 mls @ 100 mls/hr IV .Q10H [facility] Last Admin: 07/07/17 17:15 Dose: Not Given Ceftriaxone Sodium (Rocephin 1 Gram Ivpb) 1 gm in 100 mls @ 100 mls/hr IVPB DAILY [facility] PRN Reason: Protocol Metoprolol Tartrate (Lopressor) 12.5 mg PO DAILY [facility] Morphine Sulfate (Morphine) 2 mg IVP Q4H PRN PRN Reason: Pain, moderate (4-7) Last Admin: 07/06/17 06:36 Dose: 2 mg Ondansetron HCl (Zofran Inj) 4 mg IVP Q6H PRN PRN Reason: Nausea/Vomiting Last Admin: 07/07/17 10:14 Dose: 4 mg - Labs Labs: 07/06/17 06:47 07/06/17 06:47 PT 12.8 Seconds (9.9-11.8) H 07/05/17 20:10 INR 1.19 (0.93-1.08) H 07/05/17 20:10 APTT 29.7 Seconds (23.7-30.8) 07/05/17 20:10 Attending/Attestation - Attestation I have personally seen and examined this patient.: Yes I have fully participated in the care of the patient.: Yes I have reviewed all pertinent clinical information, including history, physical exam and plan: Yes
[2017-07-08] MEDS: metroNIDAZOLE IV 500 mg/100 ml 500 MG/100 ML BAG IVPB SCH ×3 (06:29→22:18)
[2017-07-08 06:32] LABS: HEMATOCRIT 34.5 % (36.0-48.0); MEAN CELL VOLUME 87.3 fl (80.0-105.0); MEAN CORPUSCULAR HEMOGLOBIN 29.1 pg (25.0-35.0); MEAN CORPUSCULAR HGB CONC 33.3 g/dl (31.0-37.0); MEAN PLATELET VOLUME 9.6 fl (7.0-11.0); RED CELL DISTRIBUTION WIDTH 12.5 % (11.5-14.5)
[2017-07-08 06:54] LABS: CALCIUM 8.8 mg/dL (8.4-10.5); CARBON DIOXIDE 25 mmol/L (21-33); CHLORIDE 101 mmol/L (98-107); GFR AFRICAN-AMERICAN > 60; GLUCOSE,RANDOM 114 mg/dL (70-110); SODIUM 138 mmol/L (132-148)
[2017-07-08 07:00] LABS: BLOOD UREA NITROGEN < 2 mg/dL (7-21)
--- NOTE | 2017-07-08 08:30 | CARD ---
APPROVED REPORT EXAM: Two-dimensional and M-mode echocardiogram with Doppler and color Doppler. Other Information Quality : AverageRhythm : INDICATION EVALUATE LV WALL MOTION/EF 2D DIMENSIONS Left Atrium (2D)4.2 (1.6-4.0cm)IVSd1.0 (0.7-1.1cm) LVDd4.5 (3.9-5.9cm)PWd1.1 (0.7-1.1cm) LVDs3.2 (2.5-4.0cm)FS (%) 27.4 % LVEF (%)53.0 (>50%) M-Mode DIMENSIONS Aortic Root2.50 (2.2-3.7cm)Aortic Cusp Exc.1.90 (1.5-2.0cm) Aortic Valve AoV Peak Ykkzteix939.0cm/s Mitral Valve MV E Aulchlrp26.7cm/sMV A Ieuhvldb71.9cm/sE/A ratio1.1 TDI E/Lateral E'0.0E/Medial E'0.0 Tricuspid Valve TR Peak [id number]/sRAP [id number] Peak Gr.25mmHg [id number] LEFT VENTRICLE The left ventricle is normal size. There is normal left ventricular wall thickness. The left ventricular function is normal. The left ventricular ejection fraction is within the normal range. There is normal LV segmental wall motion. RIGHT VENTRICLE The right ventricle is normal size. ATRIA The left atrium is mildly dilated. The right atrium size is normal. The interatrial septum is intact with no evidence for an atrial septal defect. AORTIC VALVE The aortic valve is normal in structure. MITRAL VALVE The mitral valve is normal in structure. TRICUSPID VALVE The tricuspid valve is normal in structure. There is trace tricuspid regurgitation. PULMONIC VALVE The pulmonic valve is not well visualized. GREAT VESSELS The aortic root is normal in size. PERICARDIAL EFFUSION There is no pericardial effusion. <Conclusion> The left ventricle is normal size. There is normal left ventricular wall thickness. The left ventricular function is normal.
[2017-07-08] MEDS ORDERED: Magnesium Citrate Oral SOL (300 ml) PO ONE (09:14)
[2017-07-08] MEDS: cefTRIAXone 1 gm 1 GM/100 ML BAG IVPB SCH (10:10)
--- NOTE | 2017-07-08 10:43 | CP.PCM.PN ---
Subjective - Date & Time of Evaluation Date of Evaluation: 07/08/17 Time of Evaluation: 07:15 - Subjective Subjective: SURGERY NOTE FOR DR. GO 47 F seen and examined at bedside. Patient states pain is minimal, denies nausea , vomiting, fevers, chills. currently only julian liquid diet. Objective - Vital Signs/Intake and Output Vital Signs (last 24 hours): Temp Pulse Resp BP Pulse Ox 99.1 F 85 20 123/75 96 07/08/17 08:21 07/08/17 10:11 07/08/17 08:21 07/08/17 10:11 07/08/17 08:21 Intake and Output: 07/08/17 07/08/17 06:59 18:59 Intake Total 480 Balance 480 - Medications Medications: Current Medications Acetaminophen (Tylenol 325mg Tab) 650 mg PO Q4H PRN PRN Reason: Fever >100.5 F Last Admin: 07/06/17 16:24 Dose: 650 mg Famotidine (Pepcid) 40 mg PO HS [facility] Last Admin: 07/07/17 22:38 Dose: 40 mg Heparin Sodium (Porcine) (Heparin) 5,000 units SC Q12 [facility] PRN Reason: Protocol Last Admin: 07/08/17 10:11 Dose: 5,000 units Metronidazole (Flagyl) 500 mg in 100 mls @ 100 mls/hr IVPB Q8 [facility] PRN Reason: Protocol Last Admin: 07/08/17 06:29 Dose: 100 mls/hr Dextrose/Sodium Chloride (Dextrose 5%/0.45% Ns 1000 Ml) 1,000 mls @ 100 mls/hr IV .Q10H [facility] Last Admin: 07/07/17 17:15 Dose: Not Given Ceftriaxone Sodium (Rocephin 1 Gram Ivpb) 1 gm in 100 mls @ 100 mls/hr IVPB DAILY [facility] PRN Reason: Protocol Last Admin: 07/08/17 10:10 Dose: 100 mls/hr Potassium Chloride (Potassium Chloride 20 Meq/100 Ml) 20 meq in 100 mls @ 50 mls/hr IVPB Q2H [facility] Stop: 07/08/17 12:59 Metoprolol Tartrate (Lopressor) 12.5 mg PO DAILY [facility] Last Admin: 07/08/17 10:11 Dose: 12.5 mg Morphine Sulfate (Morphine) 2 mg IVP Q4H PRN PRN Reason: Pain, moderate (4-7) Last Admin: 07/06/17 06:36 Dose: 2 mg Ondansetron HCl (Zofran Inj) 4 mg IVP Q6H PRN PRN Reason: Nausea/Vomiting Last Admin: 07/07/17 10:14 Dose: 4 mg - Labs Labs: 07/08/17 06:00 07/08/17 06:00 PT 12.8 Seconds (9.9-11.8) H 07/05/17 20:10 INR 1.19 (0.93-1.08) H 07/05/17 20:10 APTT 29.7 Seconds (23.7-30.8) 07/05/17 20:10 - Constitutional Appears: Non-toxic, No Acute Distress - Respiratory Exam Respiratory Exam: Clear to Ausculation Bilateral, NORMAL BREATHING PATTERN - Cardiovascular Exam Cardiovascular Exam: REGULAR RHYTHM, +S1, +S2 - GI/Abdominal Exam GI & Abdominal Exam: Soft, Tenderness (LLQ). absent: Distended, Firm, Guarding , Rigid, Rebound - Neurological Exam Neurological Exam: Alert, Awake Assessment and Plan - Assessment and Plan (Free Text) Assessment: 47F w. recurrent acute diverticulitis Plan: - Pre-op patient for OR Tuesday - Possible sigmoidoscope by GI - start Go-tely Tuesday for duration of two days Further recs discuss with Dr. Rajinder Calixto, PGY2
[2017-07-08] MEDS ORDERED: Potassium Chloride 20 mEq ER Tab PO ONE (13:22)
--- NOTE | 2017-07-08 13:57 | CP.PCM.PN ---
<Renuka Nevarez - Last Filed: 07/08/17 13:55> Subjective - Date & Time of Evaluation Date of Evaluation: 07/08/17 Time of Evaluation: 10:05 - Subjective Subjective: Seen and examined at the bedside earlier today, no acute overnight events reported. The chart was reviewed. Patient is out of bed currently drinking magnesium citrate, reporting soft stools, no reports of melena or bright red blood per rectum. Denies nausea, vomiting, fever or chills. Still with same discomfort to the left lower quadrant. Denies increase in intensity. Objective - Vital Signs/Intake and Output Vital Signs (last 24 hours): Temp Pulse Resp BP Pulse Ox 99.1 F 85 20 123/75 96 07/08/17 08:21 07/08/17 10:11 07/08/17 08:21 07/08/17 10:11 07/08/17 08:21 Intake and Output: 07/08/17 07/08/17 06:59 18:59 Intake Total 480 Balance 480 - Medications Medications: Current Medications Acetaminophen (Tylenol 325mg Tab) 650 mg PO Q4H PRN PRN Reason: Fever >100.5 F Last Admin: 07/06/17 16:24 Dose: 650 mg Famotidine (Pepcid) 40 mg PO HS [facility] Last Admin: 07/07/17 22:38 Dose: 40 mg Heparin Sodium (Porcine) (Heparin) 5,000 units SC Q12 [facility] PRN Reason: Protocol Last Admin: 07/08/17 10:11 Dose: 5,000 units Metronidazole (Flagyl) 500 mg in 100 mls @ 100 mls/hr IVPB Q8 [facility] PRN Reason: Protocol Last Admin: 07/08/17 06:29 Dose: 100 mls/hr Dextrose/Sodium Chloride (Dextrose 5%/0.45% Ns 1000 Ml) 1,000 mls @ 100 mls/hr IV .Q10H [facility] Last Admin: 07/07/17 17:15 Dose: Not Given Ceftriaxone Sodium (Rocephin 1 Gram Ivpb) 1 gm in 100 mls @ 100 mls/hr IVPB DAILY [facility] PRN Reason: Protocol Last Admin: 07/08/17 10:10 Dose: 100 mls/hr Metoprolol Tartrate (Lopressor) 12.5 mg PO DAILY [facility] Last Admin: 07/08/17 10:11 Dose: 12.5 mg Morphine Sulfate (Morphine) 2 mg IVP Q4H PRN PRN Reason: Pain, moderate (4-7) Last Admin: 07/06/17 06:36 Dose: 2 mg Ondansetron HCl (Zofran Inj) 4 mg IVP Q6H PRN PRN Reason: Nausea/Vomiting Last Admin: 07/07/17 10:14 Dose: 4 mg - Labs Labs: 07/08/17 06:00 07/08/17 06:00 PT 12.8 Seconds (9.9-11.8) H 07/05/17 20:10 INR 1.19 (0.93-1.08) H 07/05/17 20:10 APTT 29.7 Seconds (23.7-30.8) 07/05/17 20:10 - Constitutional Appears: No Acute Distress - Head Exam Head Exam: NORMOCEPHALIC - Eye Exam Eye Exam: Normal appearance. absent: Scleral icterus - ENT Exam ENT Exam: Mucous Membranes Moist - Neck Exam Neck Exam: Normal Inspection - Respiratory Exam Respiratory Exam: Clear to Ausculation Bilateral, NORMAL BREATHING PATTERN. absent: Respiratory Distress - Cardiovascular Exam Cardiovascular Exam: +S1, +S2 - GI/Abdominal Exam GI & Abdominal Exam: Soft, Tenderness (left lower quadrant, no rebound or guarding). absent: Guarding, Organomegaly, Rebound - Extremities Exam Extremities Exam: Normal Capillary Refill. absent: Calf Tenderness, Pedal Edema - Neurological Exam Neurological Exam: Alert, Awake, Oriented x3 - Skin Skin Exam: Dry, Warm Assessment and Plan - Assessment and Plan (Free Text) Assessment: Assessment: Recurrent acute diverticulitis Obesity Hypertension Elevated liver enzymes, abd. US 06/06/17neg and hep panel neg, maybe medication induced, will monitor. Plan: IV F for hydration full liquids Continue IV antibiotics Continue GI prophylaxis Encourage to get OOB/ambulation, pt has TEDS trend LFT Plan for flexsig on Tuesday,w/surgery standby start bowel cleansing on tuesday surgical FU <Jessica Jimenez V - Last Filed: 07/08/17 23:48> Objective - Vital Signs/Intake and Output Vital Signs (last 24 hours): Temp Pulse Resp BP Pulse Ox 98.2 F 71 18 123/77 96 07/08/17 16:00 07/08/17 16:00 07/08/17 16:00 07/08/17 16:00 07/08/17 16:00 Intake and Output: 07/08/17 07/09/17 18:59 06:59 Intake Total 480 Balance 480 - Medications Medications: Current Medications Acetaminophen (Tylenol 325mg Tab) 650 mg PO Q4H PRN PRN Reason: Fever >100.5 F Last Admin: 07/06/17 16:24 Dose: 650 mg Famotidine (Pepcid) 40 mg PO HS [facility] Last Admin: 07/08/17 22:18 Dose: 40 mg Heparin Sodium (Porcine) (Heparin) 5,000 units SC Q12 [facility] PRN Reason: Protocol Last Admin: 07/08/17 22:18 Dose: 5,000 units Metronidazole (Flagyl) 500 mg in 100 mls @ 100 mls/hr IVPB Q8 [facility] PRN Reason: Protocol Last Admin: 07/08/17 22:18 Dose: 100 mls/hr Dextrose/Sodium Chloride (Dextrose 5%/0.45% Ns 1000 Ml) 1,000 mls @ 100 mls/hr IV .Q10H [facility] Last Admin: 07/08/17 20:24 Dose: 100 mls/hr Ceftriaxone Sodium (Rocephin 1 Gram Ivpb) 1 gm in 100 mls @ 100 mls/hr IVPB DAILY [facility] PRN Reason: Protocol Last Admin: 07/08/17 10:10 Dose: 100 mls/hr Metoprolol Tartrate (Lopressor) 12.5 mg PO DAILY [facility] Last Admin: 07/08/17 10:11 Dose: 12.5 mg Morphine Sulfate (Morphine) 2 mg IVP Q4H PRN PRN Reason: Pain, moderate (4-7) Last Admin: 07/06/17 06:36 Dose: 2 mg Ondansetron HCl (Zofran Inj) 4 mg IVP Q6H PRN PRN Reason: Nausea/Vomiting Last Admin: 07/08/17 16:17 Dose: 4 mg Polyethylene Glycol/Electrolytes (Golytely) 4,000 ml PO ONCE ONE Stop: 07/09/17 07:01 - Labs Labs: 07/08/17 06:00 07/08/17 06:00 PT 12.8 Seconds (9.9-11.8) H 07/05/17 20:10 INR 1.19 (0.93-1.08) H 07/05/17 20:10 APTT 29.7 Seconds (23.7-30.8) 07/05/17 20:10 Attending/Attestation - Attestation Notes (Text): p 07/08/17 23:48
--- NOTE | 2017-07-08 14:25 | PN ---
DATE: 07/08/2017 SUBJECTIVE: This 47-year-old female remains hospitalized now with hypokalemia, status post nausea and vomiting. She remains on IV Rocephin and Flagyl for descending colon diverticulitis under the observation of Dr. Jessica Jimenez from GI as well as Dr. Delta Calvillo from surgery. The patient is being prepped for a colonoscopy on Tuesday to be followed by elective colectomy of her persistent diverticulitis and abnormal CAT scan findings of her descending colon, hopefully not colon cancer. PHYSICAL EXAMINATION: GENERAL: The patient denies any fever or chills, but has been running low-grade temperatures and has poor p.o. intake of food and fluids. VITAL SIGNS: At present temperature is 99.1, respirations 20, pulse 85 and blood pressure 123/75 with a pulse ox of 96% room air. HEENT: Head is normocephalic, atraumatic. Eyes: No icterus. Ears: Clear. Throat: Noninjected. NECK: Supple. HEART: Regular S1, S2. LUNGS: Clear. ABDOMEN: Obese, nontender without palpable organomegaly. No rebound. No guarding. No tenderness. EXTREMITIES: Show no clubbing, no cyanosis, no edema. SKIN: Without rash. NEUROLOGICAL: Unchanged. PSYCHOLOGICAL: Alert. VASCULAR: Legs warm to touch. LABORATORY DATA: White count 7000; hemoglobin 11.5; hematocrit 34.5; platelets 353,000. Sodium 138, K of 3.0, chloride 101, bicarb 25, BUN 2, creatinine 0.5, random blood sugar 114. Calcium normal at 8.8. Hepatitis A, B, C serology is negative. Blood cultures no growth at 48 hours. IMPRESSION: This is a 47-year-old female with descending colon diverticulitis, abnormal CAT scan findings showing mural thickening, rule out colonic mass involving the descending colon as well with comorbidities of morbid obesity and placing the patient at a moderately increased risk for complications for needed surgery. It should be noted that a 2-D echocardiogram has been completed and reviewed by Dr. Naga Brewer from cardiology that shows her left ventricle is normal in size, there is normal left ventricular wall thickness and her left ventricle function is normal. In preparation of impending surgery, the patient has been started on metoprolol tartrate 12.5 mg p.o. daily, incentive spirometry q. 1 hour. She continues on D5 0.45 saline at 100 mL/hour, Flagyl 500 mg IV q. 8, Rocephin 1 g IV q. 24, heparin 5000 units of subQ q. 12 and she continues on Pepcid 40 mg p.o. at bedtime. There was an order for Zofran 4 mg IV q. 6 hours p.r.n. nausea and vomiting. The patient is refusing her potassium parenterally, I have instructed her nurse to cancel the parenteral potassium order and administer oral potassium and she will have a repeat potassium level in the a.m. The patient has been encouraged to continue her full liquid diet and all of the above was explained in detail to the patient at her bedside. This case has been reviewed in detail with nursing, GI and surgery as well and prognosis remains stable at present. Greater than fifty minutes was spent in the care management and counseling of this patient today. Karol Banks MD MTDD
[2017-07-08] MEDS: Dextrose 5%/0.45% NS 1,000 ML IV SCH (20:24)
[2017-07-09] MEDS: Dextrose 5%/0.45% NS 1,000 ML IV SCH ×3 (06:48→21:26)
[2017-07-09] MEDS: metroNIDAZOLE IV 500 mg/100 ml 500 MG/100 ML BAG IVPB SCH ×3 (06:48→21:51)
[2017-07-09] MEDS ORDERED: Peg-Electrolyte Oral Soln 4L (Golytely) PO ONE (07:00)
--- NOTE | 2017-07-09 09:03 | CP.PCM.CON ---
History of Present Illness - History of Present Illness History of Present Illness: Surgery note for Dr. Calvillo 47F seen and examined at bedside. Patient continues to complain of abdominal, denies nausea, vomiting, fevers, chill. Past Patient History - Infectious Disease Hx of Infectious Diseases: None - Tetanus Immunizations Tetanus Immunization: Unknown - Past Medical History & Family History Past Family History: Reviewed and not pertinent - Past Social History Smoking Status: Never Smoked - CARDIAC Hx Pacemaker: No - PULMONARY Hx Respiratory Disorders: No - NEUROLOGICAL Hx Neurological Disorder: No - HEENT Hx HEENT Problems: No - RENAL Hx Chronic Kidney Disease: No - ENDOCRINE/METABOLIC Hx Endocrine Disorders: No - HEMATOLOGICAL/ONCOLOGICAL Hx Cancer: No - INTEGUMENTARY Hx Dermatological Problems: No - MUSCULOSKELETAL/RHEUMATOLOGICAL Hx Musculoskeletal Disorders: Yes Hx Back Pain: Yes - GASTROINTESTINAL Hx Constipation: Yes Hx Diverticulitis: Yes - GENITOURINARY/GYNECOLOGICAL Hx Genitourinary Disorders: No - PSYCHIATRIC Hx Psychophysiologic Disorder: No Hx Substance Use: No - SURGICAL HISTORY Hx Mastectomy: No - ANESTHESIA Hx Anesthesia Reactions: No Hx Malignant Hyperthermia: No Meds Allergies/Adverse Reactions: Allergies Allergy/AdvReac Type Severity Reaction Status Date / Time No Known Allergies Allergy Verified 07/05/17 19:58 - Medications Medications: Current Medications Acetaminophen (Tylenol 325mg Tab) 650 mg PO Q4H PRN PRN Reason: Fever >100.5 F Last Admin: 07/06/17 16:24 Dose: 650 mg Famotidine (Pepcid) 40 mg PO HS JEANCARLOS Last Admin: 07/08/17 22:18 Dose: 40 mg Heparin Sodium (Porcine) (Heparin) 5,000 units SC Q12 JEANCARLOS PRN Reason: Protocol Last Admin: 07/08/17 22:18 Dose: 5,000 units Metronidazole (Flagyl) 500 mg in 100 mls @ 100 mls/hr IVPB Q8 JEANCARLOS PRN Reason: Protocol Last Admin: 07/09/17 06:48 Dose: 100 mls/hr Dextrose/Sodium Chloride (Dextrose 5%/0.45% Ns 1000 Ml) 1,000 mls @ 100 mls/hr IV .Q10H JEANCARLOS Last Admin: 07/09/17 06:48 Dose: 100 mls/hr Ceftriaxone Sodium (Rocephin 1 Gram Ivpb) 1 gm in 100 mls @ 100 mls/hr IVPB DAILY JEANCARLOS PRN Reason: Protocol Last Admin: 07/08/17 10:10 Dose: 100 mls/hr Metoprolol Tartrate (Lopressor) 12.5 mg PO DAILY JEANCARLOS Last Admin: 07/08/17 10:11 Dose: 12.5 mg Morphine Sulfate (Morphine) 2 mg IVP Q4H PRN PRN Reason: Pain, moderate (4-7) Last Admin: 07/06/17 06:36 Dose: 2 mg Ondansetron HCl (Zofran Inj) 4 mg IVP Q6H PRN PRN Reason: Nausea/Vomiting Last Admin: 07/08/17 16:17 Dose: 4 mg Physical Exam - Constitutional Appears: Non-toxic, No Acute Distress - Respiratory Exam Respiratory Exam: Clear to Auscultation Bilateral, NORMAL BREATHING PATTERN - Cardiovascular Exam Cardiovascular Exam: REGULAR RHYTHM, +S1, +S2 - GI/Abdominal Exam GI & Abdominal Exam: Soft, Tenderness. absent: Distended, Firm, Guarding, Rebound, Rigid - Neurological Exam Neurological exam: Alert, Oriented x3 - Psychiatric Exam Psychiatric exam: Normal Affect, Normal Mood - Skin Skin Exam: Dry, Intact, Normal Color, Warm Results - Vital Signs Recent Vital Signs: Last Vital Signs Temp 98.7 F 07/09/17 07:30 Pulse 88 07/09/17 07:30 Resp 20 07/09/17 07:30 BP 134/81 07/09/17 07:30 Pulse Ox 97 07/09/17 07:30 - Labs Result Diagrams: 07/08/17 06:00 07/09/17 07:00 Labs: Laboratory Results - last 24 hr 07/09/17 07:00 Potassium 3.3 L Assessment & Plan - Assessment and Plan (Free Text) Assessment: 47F with recurrent diverticulitis Plan: - Golytely today and throughout tomorrow - Neomycin/Erythromycin for bowel prep 07/10 - Pre-op patient for Tuesday - Plan for partial colectomy with stoma Further recs discuss with Dr. Rajinder Calixto, PGY2
[2017-07-09] MEDS: cefTRIAXone 1 gm 1 GM/100 ML BAG IVPB SCH (09:46)
[2017-07-09] MEDS: Potassium Chloride 20 mEq ER Tab PO SCH ×3 (15:00→17:04)
--- NOTE | 2017-07-09 16:07 | PN ---
DATE: 07/09/2017 SUBJECTIVE: This 47-year-old female was examined at her bedside. Her case was reviewed in detail with herself, nursing and her sister Mary was present for the interview. The patient states she had one episode of vomiting earlier today. She is receiving parenteral antibiotics for persistent diverticulitis. She is also being GI prepped for OR colonoscopy this coming Tuesday by Dr. Jessica Jimenez from GI to be followed by exploratory laparotomy by Dr. Delta Calvillo from surgery. This is in the setting of persistent diverticulitis and abnormal CTs of the abdomen and pelvis which show mural thickening of the descending colon and raises suspicion for possible colonic malignancy as well. This has been explained to the patient and her sister in detail and they are aware of the need for OR colonoscopy prior to the surgery scheduled for this Tuesday. It should also be noted that the patient completed a 2-D echocardiogram that showed normal wall motion as well as normal left ventricular size; however, given the patient's morbid obesity, both the patient and her family are aware that she remains at moderate risk for any surgical intervention. She is able to perform incentive spirometry with me at the bedside today and denies any fever or chills. PHYSICAL EXAMINATION: VITAL SIGNS: Her temperature is 98.7, respirations 20, pulse 88, blood pressure 134/81 with a pulse ox of 97% on room air. HEENT: Head is normocephalic, atraumatic. Eyes: No icterus. Ears: Clear. Throat: Noninjected. NECK: Supple. HEART: Regular S1, S2. No pathological rubs, murmurs or gallops. LUNGS: Clear to auscultation. ABDOMEN: Obese, nontender without palpable organomegaly. No rebound, no guarding. No tenderness. EXTREMITIES: Show no clubbing, no cyanosis, no edema. SKIN: Without rash. NEUROLOGIC: Intact. PSYCHOLOGIC: Alert. VASCULAR: Legs are warm to touch. LABORATORY DATA: Her potassium this morning is 3.3 with 3.0 yesterday. Hepatitis A, B, C serologies are negative. White count is 7000, hemoglobin 11.5, hematocrit 34.5, platelets are 353,000. Urine culture shows multiple species, probable contamination and blood culture showed no growth. IMPRESSION: A 47-year-old female with morbid obesity and diverticulitis, rule out colonic malignancy with episodes of vomiting and hypokalemia now with need for potassium replacement and the patient is refusing parenteral potassium supplementation. In preparation for surgery, the patient will be placed on metoprolol tartrate 12.5 mg p.o. daily. She is encouraged to perform her incentive spirometry q. 1 hour and ambulate with assistance. She continues on Rocephin 1 g IV q. 24, Flagyl 500 mg IV q. 8, Pepcid 40 mg p.o. at bedtime and is receiving neomycin 1000 mg p.o. t.i.d. and erythromycin 1000 mg p.o. t.i.d. She also was ordered to receive citrate of magnesia one dose as well. She continues on D5 0.45 mL at 100 mL/hour. She is ordered to have a PEG electrolyte lavage solution GoLYTELY starting today as well. She continues on heparin 5000 units subcu q. 12. I will order two doses of potassium chloride today and recheck her potassium level in the a.m. She remains on a liquid diet under the direction of Dr. Jessica Jimenez from GI, and is awaiting a midline PICC, team insertion IV as well. All of the above was discussed in detail with the patient and her sister at the bedside. Greater than fifty minutes were spent in the care, management and counseling of this patient today and both the patient and sister remain aware that she remains at a moderately increased risk for any surgery given her morbid obesity and exisisting comorbidities. Hopefully, all will go well with outlined procedure for Tuesday as discussed above. Karol Banks MD MTDD
--- NOTE | 2017-07-10 05:33 | CP.PCM.PN ---
Subjective - Date & Time of Evaluation Date of Evaluation: 07/10/17 Time of Evaluation: 05:28 - Subjective Subjective: PGY1 Note for Dr. Calvillo HPI: Patient seen and examined at bedside. Doing well. Still complaining of mild belly pain. Drank the golytely last yesterday without difficulty. States her stool is water. No other complaints at this time. Denies N/V/F/CP/SOB Objective - Vital Signs/Intake and Output Vital Signs (last 24 hours): Temp Pulse Resp BP Pulse Ox 98.5 F 74 20 146/94 H 97 07/10/17 00:00 07/10/17 00:00 07/10/17 00:00 07/10/17 00:00 07/10/17 00:00 Intake and Output: 07/09/17 07/10/17 18:59 06:59 Intake Total 600 600 Balance 600 600 - Medications Medications: Current Medications Acetaminophen (Tylenol 325mg Tab) 650 mg PO Q4H PRN PRN Reason: Fever >100.5 F Last Admin: 07/06/17 16:24 Dose: 650 mg Erythromycin (Erythromycin) 1,000 mg PO TID JEANCARLOS PRN Reason: Protocol Famotidine (Pepcid) 40 mg PO HS JEANCARLOS Last Admin: 07/09/17 21:27 Dose: 40 mg Heparin Sodium (Porcine) (Heparin) 5,000 units SC Q12 JEANCARLOS PRN Reason: Protocol Last Admin: 07/09/17 21:26 Dose: 5,000 units Metronidazole (Flagyl) 500 mg in 100 mls @ 100 mls/hr IVPB Q8 JEANCARLOS PRN Reason: Protocol Last Admin: 07/09/17 21:51 Dose: 100 mls/hr Dextrose/Sodium Chloride (Dextrose 5%/0.45% Ns 1000 Ml) 1,000 mls @ 100 mls/hr IV .Q10H JEANCARLOS Last Admin: 07/09/17 21:26 Dose: 100 mls/hr Ceftriaxone Sodium (Rocephin 1 Gram Ivpb) 1 gm in 100 mls @ 100 mls/hr IVPB DAILY JEANCARLOS PRN Reason: Protocol Last Admin: 07/09/17 09:46 Dose: 100 mls/hr Metoprolol Tartrate (Lopressor) 12.5 mg PO DAILY JEANCARLOS Last Admin: 07/09/17 09:46 Dose: 12.5 mg Neomycin Sulfate (Neomycin Tab) 1,000 mg PO TID JEANCARLOS Ondansetron HCl (Zofran Inj) 4 mg IVP Q6H PRN PRN Reason: Nausea/Vomiting Last Admin: 07/08/17 16:17 Dose: 4 mg - Labs Labs: 07/08/17 06:00 07/09/17 07:00 PT 12.8 Seconds (9.9-11.8) H 07/05/17 20:10 INR 1.19 (0.93-1.08) H 07/05/17 20:10 APTT 29.7 Seconds (23.7-30.8) 07/05/17 20:10 - Constitutional Appears: Well, Non-toxic, No Acute Distress - Head Exam Head Exam: ATRAUMATIC, NORMAL INSPECTION, NORMOCEPHALIC - Eye Exam Eye Exam: EOMI - ENT Exam ENT Exam: Mucous Membranes Moist - Respiratory Exam Respiratory Exam: Clear to Ausculation Bilateral, NORMAL BREATHING PATTERN - Cardiovascular Exam Cardiovascular Exam: REGULAR RHYTHM - GI/Abdominal Exam GI & Abdominal Exam: Soft, Tenderness (mild tenderness in llq), Normal Bowel Sounds. absent: Distended - Back Exam Back Exam: absent: CVA tenderness (L), CVA tenderness (R) - Neurological Exam Neurological Exam: Alert, Awake, Oriented x3 - Psychiatric Exam Psychiatric exam: Normal Affect, Normal Mood - Skin Skin Exam: Dry, Intact, Normal Color, Warm Assessment and Plan - Assessment and Plan (Free Text) Assessment: 47yo female with recurrent diverticulitis Plan: * continue golytely, Neomycin/erythromycin * OR wednesday 07/11 for colon resection * NPO after MN * Abx: Rocephin 1g QD, Flagyl 500 IV Q8
[2017-07-10] MEDS: metroNIDAZOLE IV 500 mg/100 ml 500 MG/100 ML BAG IVPB SCH ×3 (06:31→22:08)
[2017-07-10 07:07] LABS: ALB/GLOB RATIO 0.8 (1.1-1.8); ALKALINE PHOSPHATASE 88 U/L (38-126); ALT/SGPT 18 U/L (7-56); AST/SGOT 27 U/L (14-36); BILIRUBIN,TOTAL 0.5 mg/dL (0.2-1.3); CALCIUM 8.4 mg/dL (8.4-10.5); CARBON DIOXIDE 36 mmol/L (21-33); CHLORIDE 101 mmol/L (98-107); GFR AFRICAN-AMERICAN > 60; GLUCOSE,RANDOM 99 mg/dL (70-110); POTASSIUM 3.5 mmol/L (3.6-5.0); SODIUM 137 mmol/L (132-148); TOTAL PROTEIN 6.6 g/dL (5.8-8.3)
[2017-07-10 07:17] LABS: BLOOD UREA NITROGEN < 2 mg/dL (7-21)
[2017-07-10 08:08] LABS: BASO # 0.01 K/mm3 (0.0-2.0); BASO % 0.2 % (0.0-3.0); EOS # 0.1 (0.0-0.7); EOS % 1.3 % (1.5-5.0); GRAN # 4.25 (1.4-6.5); GRAN % 69.6 % (50.0-68.0); HEMATOCRIT 30.7 % (36.0-48.0); LYMPH # 0.9 (1.2-3.4); LYMPH % 14.6 % (22.0-35.0); MEAN CORPUSCULAR HEMOGLOBIN 29.2 pg (25.0-35.0); MEAN CORPUSCULAR HGB CONC 33.6 g/dl (31.0-37.0); MEAN PLATELET VOLUME 9.7 fl (7.0-11.0); MONO # 0.9 (0.1-0.6); MONO % 14.3 % (1.0-6.0); RED CELL DISTRIBUTION WIDTH 12.5 % (11.5-14.5); WHITE BLOOD COUNT 6.1 10^3/ul (4.5-11.0)
[2017-07-10] MEDS: cefTRIAXone 1 gm 1 GM/100 ML BAG IVPB SCH (09:13)
[2017-07-10] MEDS ORDERED: HYDROmorphone 0.5 mg/0.5 ml ISec IVP PRN (11:07)
[2017-07-10] MEDS ORDERED: HYDROmorphone 1 mg/ml ISec IVP STA (11:07)
--- NOTE | 2017-07-10 13:43 | PN ---
DATE: 07/10/2017 SUBJECTIVE: This 47-year-old female remains hospitalized with diverticulitis, persistent abdominal pain, gastritis, morbid obesity and is receiving bowel prep for colonoscopy to be followed by exploratory laparotomy Tuesday a.m. The case was reviewed in detail with the patient and her nurse at the bedside. The patient initially refused IV potassium riders then she refused oral potassium replacement therapy and now is accepting K-riders as outlined despite these efforts, her potassium level remains at 3.5, and this will require an additional two riders of potassium preoperatively. At present, the patient is denying fevers, chills, chest pain, shortness of breath. There have been no reports of vomiting today and the patient admits to bowel movements with GI prep. On physical exam temperature is 98.8, respirations 18, pulse 61 and blood pressure 122/81 with a pulse ox of 97% room air. Head normocephalic, atraumatic. Eyes: No icterus. Neck: Supple. Heart: Regular S1, S2. No pathological rubs, murmurs or gallops. Lungs: Clear to auscultation. Abdomen: Obese, nontender without palpable organomegaly. No rebound, no guarding. No tenderness. Extremities: No edema. Skin: Without rash. Neurological intact. Psychological alert. Vascular: Legs warm to touch. LABORATORY DATA: Sodium 130, potassium 3.5, previously 3.3, chloride 101, bicarb 36, BUN 2, creatinine 0.5, random blood sugar 99. All liver function testing was normal including bilirubin 0.5, AST 27, ALT 18 and alk phos 88. White count 6100, hemoglobin 10.3, hematocrit 30.7, platelets 333,000. PT/INR 1.19, PTT 29.7. Hepatitis A, B, C serology is negative. Microbiology studies show blood cultures with no growth. IMPRESSION: Morbidly obese 47-year female with diverticulitis, rule out colonic malignancy with comorbidities of gastritis, vomiting, hypokalemia, history of degenerative arthritis and sciatica. PLAN: At present is to continue Zofran 4 mg IV q.6h. p.r.n. nausea, vomiting. She continues on Rocephin 1 g IV q. 24, Flagyl 500 mg IV q.8h. She is ordered to receive potassium chloride 20 mEq in 100 mL, 0.9 saline over 2 hours x2 doses with a repeat potassium level ordered subsequently as discussed with her nurse if her potassium level is less than 3.5, she will require an additional 2 doses of potassium replacement therapy. She continues on Pepcid 40 mg p.o. at bedtime, neomycin 1000 mg p.o. t.i.d., metoprolol tartrate 12.5 mg p.o. daily heparin 5000 units subcu q. 12th, GoLYTELY lavage solution as outlined, erythromycin 1000 mg p.o. t.i.d. and D5/ 0.45 saline at 60 mL/hour. The patient is on schedule for colonoscopy in the a.m. to be followed by exploratory laparotomy. She is performing incentive spirometry q. 1 hour and is ordered to have a liquid diet today by Dr. Jessica Jimenez from GI. As discussed previously the patient and family are aware that she remains a moderately increased risk for any surgical intervention given her morbid obesity and multiple comorbidities. She has completed a 2-D echo that shows normal left ventricular wall motion and is on beta blockade as outlined. Overall prognosis is stable at present. Greater than fifty minutes was spent in the care, management and counseling of this patient today. I did review all of the above in detail with her nurse Lisa as well. Karol Banks MD MTDD
[2017-07-10] MEDS: Dextrose 5%/0.45% NS 1,000 ML IV SCH (13:48)
[2017-07-10] MEDS ORDERED: Potassium Chloride 20 mEq ER Tab PO ONE (19:23)
[2017-07-10] MEDS ORDERED: Magnesium Citrate Oral SOL (300 ml) PO ONE (22:27)
[2017-07-11] MEDS: metroNIDAZOLE IV 500 mg/100 ml 500 MG/100 ML BAG IVPB SCH ×3 (05:19→21:10)
[2017-07-11] MEDS: Dextrose 5%/0.45% NS 1,000 ML IV SCH (05:20)
[2017-07-11 06:36] LABS: ALB/GLOB RATIO 0.8 (1.1-1.8); ALKALINE PHOSPHATASE 106 U/L (38-126); ALT/SGPT 21 U/L (7-56); AST/SGOT 28 U/L (14-36); BASO # 0.01 K/mm3 (0.0-2.0); BASO % 0.1 % (0.0-3.0); BILIRUBIN,TOTAL 0.5 mg/dL (0.2-1.3); CALCIUM 8.8 mg/dL (8.4-10.5); CARBON DIOXIDE 28 mmol/L (21-33); CHLORIDE 99 mmol/L (98-107); EOS # 0.1 (0.0-0.7); EOS % 0.8 % (1.5-5.0); GFR AFRICAN-AMERICAN > 60; GLUCOSE,RANDOM 106 mg/dL (70-110); GRAN # 5.43 (1.4-6.5); GRAN % 75.8 % (50.0-68.0); HEMATOCRIT 33.3 % (36.0-48.0); LYMPH # 0.9 (1.2-3.4); MEAN CELL VOLUME 86.9 fl (80.0-105.0); MEAN CORPUSCULAR HEMOGLOBIN 29.2 pg (25.0-35.0); MEAN CORPUSCULAR HGB CONC 33.6 g/dl (31.0-37.0); MEAN PLATELET VOLUME 9.4 fl (7.0-11.0); MONO # 0.7 (0.1-0.6); MONO % 10.3 % (1.0-6.0); POTASSIUM 3.5 mmol/L (3.6-5.0); RED CELL DISTRIBUTION WIDTH 12.5 % (11.5-14.5); SODIUM 136 mmol/L (132-148); TOTAL PROTEIN 7.1 g/dL (5.8-8.3); WHITE BLOOD COUNT 7.2 10^3/ul (4.5-11.0)
[2017-07-11 06:39] LABS: BLOOD UREA NITROGEN < 2 mg/dL (7-21)
[2017-07-11] MEDS ORDERED: Propofol 10 mg/ml Inj (20 ML) ONE (08:04)
[2017-07-11] MEDS ORDERED: Rocuronium 10 mg/ml (5 ml) ONE ×3 (08:05→10:32)
[2017-07-11] MEDS ORDERED: Succinylcholine 200 mg/10 ml Inj IV ONE (08:05)
[2017-07-11] MEDS ORDERED: Lidocaine 1% Inj (20ml) ONE (08:05)
[2017-07-11] MEDS ORDERED: Bupivacaine 0.5% Inj(30mL) ONE (08:38)
[2017-07-11] MEDS ORDERED: cefTRIAXone (Rocephin) 1 gm Inj ONE (08:38)
--- NOTE | 2017-07-11 09:36 | OP ---
PROCEDURE DATE: 07/11/2017 PREOPERATIVE DIAGNOSIS: Diverticulitis. POSTOPERATIVE DIAGNOSIS: Diverticulitis. PROCEDURE: Cystoscopy with bilateral ureteral catheterization and insertion of the Moore catheter. SURGEON: Jhon Ramos MD TYPE OF ANESTHESIA: General endotracheal. DESCRIPTION OF PROCEDURE: After adequate general endotracheal anesthesia was given, the patient was placed lithotomy, prepped and draped in the usual manner. A 22-Nepalese cystourethroscope was introduced. Inspection of the bladder showed no evidence of tumor, foreign body, or stones. No evidence of fistula or any bolus inflammation. The ureteral orifices were normal in appearance, location, with clear efflux. A 5-Nepalese ureteral catheters were passed up the left and right ureters. The bladder was then drained, cystoscope was removed, and Adelmann 18-Nepalese Moore catheter was then inserted in the bladder. The ureteral catheters were placed in side ports and anchored with 2-0 silks to the Moore catheter. At this time, Dr. João Calvillo, continued with his portion of the operation and will dictate separately. Jhon Ramos MD
[2017-07-11] MEDS ORDERED: Neostigmine Methylsulfate 3mg/3ml Syringe IV ONE (10:31)
--- NOTE | 2017-07-11 12:42 | PCM.SURG1 ---
Surgeon's Initial Post Op Note - Surgeon's Notes Surgeon: Rajinder Coloring Checker: Durga PGY2, John Paul PGY1, Colt JUSTICE Type of Anesthesia: General Endo Pre-Operative Diagnosis: Diverticulitis Operative Findings: see operative report Post-Operative Diagnosis: Diverticulitis, possible mass Operation Performed: Partial left colectomy with anastomosis Specimen/Specimens Removed: portion of sigmoid/Descending colon Estimated Blood Loss: EBL {In ML}: 200 Blood Products Given: N/A Drains Used: No Drains Post-Op Condition: Good Date of Surgery/Procedure: 07/11/17 Time of Surgery/Procedure: 12:42
[2017-07-11] MEDS ORDERED: Lactated Ringer's 1,000 ML IV SCH ×2 (12:45→13:30)
[2017-07-11] MEDS ORDERED: HYDROmorphone 0.5 mg/0.5 ml ISec ONE ×3 (12:47→15:01)
[2017-07-11] MEDS: HYDROmorphone 0.5 mg/0.5 ml ISec IVP PRN ×3 (12:49→14:55)
--- NOTE | 2017-07-11 13:15 | PN ---
DATE: 07/11/2017 SUBJECTIVE: This 47-year-old female was taken to the OR this morning for exploratory laparotomy of a nonresolving left colon diverticulitis. The patient denied any fever or chills, chest pain or shortness of breath, had undergone GI prep, and received parenteral potassium replacement therapy prior to the OR. PHYSICAL EXAMINATION: VITAL SIGNS: Temperature is 98.5, respirations 20, pulse 77, blood pressure 154/79 with a pulse ox of 95% on room air. HEENT: Head is normocephalic and atraumatic. Eyes: No icterus. NECK: Supple. HEART: Regular, S1 and S2. LUNGS: Clear. ABDOMEN: Obese and nontender. EXTREMITIES: No clubbing, no cyanosis, and no edema. SKIN: Without rash. NEUROLOGICAL: Intact. PSYCHOLOGICAL: Alert. VASCULAR: Legs warm to touch. LABORATORY DATA: White count 7200, hemoglobin 11.2, hematocrit 33.3, and platelets 375,000. Sodium 136, K 3.5, chloride 99, bicarb 28, BUN 2, creatinine 0.5, and random blood sugar 106. All liver function testing was normal including bilirubin 0.5, AST 28, ALT 21, and alk phos 106. Hepatitis A, B, and C serology negative. Microbiology showed blood cultures with no growth to date. IMPRESSION AND PLAN: This is a 47-year-old female morbidly obese with diverticulitis, rule out colonic malignancy, hypokalemia, episodic vomiting, gastritis, degenerative arthritis, and history of sciatica. The plan at present is to maintain the patient on D5 at 0.45 saline at 60 mL/hour. She continues on Flagyl 500 mg IV q.8 hours, Rocephin 1 g IV q.24 hours, heparin 5000 units subcutaneously q.12 hours, metoprolol tartrate 12.5 mg p.o. daily, and Pepcid 40 mg p.o. at bedtime. She will be ordered to receive potassium chloride 20 mEq in 100 mL of 0.9 saline over 2 hours x2 doses. She will remain n.p.o. She will have a comprehensive metabolic panel and CBC in the a.m. I will discuss her surgical findings with Dr. Calvillo from surgery. Postoperatively, surgery will determine her return to diet and the patient's overall prognosis remains stable at present. It should be noted that she remains at a moderate increased risk of complications with this impending surgery given her morbid obesity and multiple comorbidities. She is tolerating low-dose beta-blockade and had an unremarkable 2D echocardiogram preoperatively. All of this was discussed with the patient and her family prior to the surgery. Karol Banks MD [facility] # [id number] MTDD
[2017-07-11] MEDS ORDERED: metroNIDAZOLE IV 500 mg/100 ml 500 MG/100 ML BAG ONE (13:18)
[2017-07-11] MEDS: Lactated Ringer's 1,000 ML IV SCH (16:00)
[2017-07-11] MEDS: HYDROmorphone 1 mg/ml ISec IVP PRN ×2 (17:37→21:10)
[2017-07-12] MEDS: HYDROmorphone 1 mg/ml ISec IVP PRN ×5 (01:59→20:25)
[2017-07-12] MEDS: Lactated Ringer's 1,000 ML IV SCH ×3 (03:48→19:21)
[2017-07-12] MEDS: metroNIDAZOLE IV 500 mg/100 ml 500 MG/100 ML BAG IVPB SCH ×3 (05:53→21:28)
[2017-07-12 07:19] LABS: BASO # 0.01 K/mm3 (0.0-2.0); BASO % 0.1 % (0.0-3.0); EOS % 0.1 % (1.5-5.0); GRAN # 10.12 (1.4-6.5); HEMATOCRIT 32.2 % (36.0-48.0); LYMPH # 0.9 (1.2-3.4); LYMPH % 7.5 % (22.0-35.0); MEAN CELL VOLUME 88.5 fl (80.0-105.0); MEAN CORPUSCULAR HEMOGLOBIN 28.8 pg (25.0-35.0); MEAN CORPUSCULAR HGB CONC 32.6 g/dl (31.0-37.0); MEAN PLATELET VOLUME 9.9 fl (7.0-11.0); MONO # 1.4 (0.1-0.6); MONO % 11.3 % (1.0-6.0); RED CELL DISTRIBUTION WIDTH 12.9 % (11.5-14.5); WHITE BLOOD COUNT 12.5 10^3/ul (4.5-11.0)
--- NOTE | 2017-07-12 07:39 | CP.PCM.PN ---
Subjective - Date & Time of Evaluation Date of Evaluation: 07/12/17 Time of Evaluation: 07:39 - Subjective Subjective: General Surgery Progress Note for Dr. Calvillo Patient seen and examined at bedside. No acute event overnight. She is s/p partial left hemicolectomy POD #1. Patient resting in bed comfortably. States pain is well controlled and localized to mid-abdomen. No flatus or bowel movement. Denies any nausea, vomiting, fevers, chills or night sweats. Patient had ~75 cc/12hr bilious NGT output and ~400 cc/12hr UOP. Objective - Vital Signs/Intake and Output Vital Signs (last 24 hours): Temp Pulse Resp BP Pulse Ox 97.9 F 97 H 20 102/62 96 07/12/17 00:00 07/12/17 00:00 07/12/17 00:00 07/12/17 00:00 07/12/17 00:00 Intake and Output: 07/12/17 07/12/17 06:59 18:59 Intake Total 2100 Output Total 400 170 Balance 1700 -170 - Medications Medications: Current Medications Acetaminophen (Tylenol 325mg Tab) 650 mg PO Q6H JEANCARLOS Last Admin: 07/12/17 02:04 Dose: 650 mg Famotidine (Pepcid) 40 mg PO HS JEANCARLOS Last Admin: 07/11/17 21:52 Dose: Not Given Heparin Sodium (Porcine) (Heparin) 5,000 units SC Q12 JEANCARLOS PRN Reason: Protocol Last Admin: 07/10/17 22:08 Dose: 5,000 units Hydromorphone HCl (Dilaudid) 1 mg IVP Q4H PRN PRN Reason: Pain, severe (8-10) Last Admin: 07/12/17 05:54 Dose: 1 mg Metronidazole (Flagyl) 500 mg in 100 mls @ 100 mls/hr IVPB Q8 JEANCARLOS PRN Reason: Protocol Last Admin: 07/12/17 05:53 Dose: 100 mls/hr Ceftriaxone Sodium (Rocephin 1 Gram Ivpb) 1 gm in 100 mls @ 100 mls/hr IVPB DAILY JEANCARLOS PRN Reason: Protocol Last Admin: 07/10/17 09:13 Dose: 100 mls/hr Lactated Ringer's (Lactated Ringer's) 1,000 mls @ 150 mls/hr IV .Q6H40M [facility] Last Admin: 07/12/17 03:48 Dose: 150 mls/hr Ketorolac Tromethamine (Toradol) 30 mg IVP Q6 PRN PRN Reason: Pain, moderate (4-7) Metoprolol Tartrate (Lopressor) 12.5 mg PO DAILY [facility] Last Admin: 07/11/17 06:30 Dose: 12.5 mg Ondansetron HCl (Zofran Inj) 4 mg IVP Q6H PRN PRN Reason: Nausea/Vomiting Last Admin: 07/11/17 17:37 Dose: 4 mg - Labs Labs: 07/12/17 06:50 07/11/17 06:16 PT 12.8 Seconds (9.9-11.8) H 07/05/17 20:10 INR 1.19 (0.93-1.08) H 07/05/17 20:10 APTT 29.7 Seconds (23.7-30.8) 07/05/17 20:10 - Constitutional Appears: Non-toxic, No Acute Distress - Head Exam Head Exam: ATRAUMATIC - Respiratory Exam Respiratory Exam: NORMAL BREATHING PATTERN. absent: Accessory Muscle Use - Cardiovascular Exam Cardiovascular Exam: RRR - GI/Abdominal Exam GI & Abdominal Exam: Soft, Tenderness. absent: Distended, Guarding, Rigid, Rebound Additional comments: TTP of mid-abdominal region. Midline incision clean, dry and intact. Dressings in place without any drainage. - Extremities Exam Extremities Exam: absent: Calf Tenderness - Neurological Exam Neurological Exam: Alert, Altered, Awake, Oriented x3 - Psychiatric Exam Psychiatric exam: Normal Affect, Normal Mood - Skin Skin Exam: Normal Color, Warm Assessment and Plan - Assessment and Plan (Free Text) Assessment: 47F s/p partial left hemicolectomy with primary anastamosis on POD#1. Plan: - NPO - discontinue NGT - discontinue Moore - Analgesics/Anti-emetics - f/u pathology -DW Dr. Rajinder Coker PGY1
[2017-07-12 08:28] LABS: ALB/GLOB RATIO 0.8 (1.1-1.8); ALKALINE PHOSPHATASE 74 U/L (38-126); ALT/SGPT 22 U/L (7-56); AST/SGOT 34 U/L (14-36); BILIRUBIN,TOTAL 0.7 mg/dL (0.2-1.3); BLOOD UREA NITROGEN 5 mg/dL (7-21); CALCIUM 8.5 mg/dL (8.4-10.5); CARBON DIOXIDE 29 mmol/L (21-33); CHLORIDE 102 mmol/L (98-107); GFR AFRICAN-AMERICAN > 60; GLUCOSE,RANDOM 110 mg/dL (70-110); POTASSIUM 4.7 mmol/L (3.6-5.0); SODIUM 136 mmol/L (132-148); TOTAL PROTEIN 6.4 g/dL (5.8-8.3)
[2017-07-12] MEDS ORDERED: Oxycodone/Acetaminophen 5/325 mg Tab PO PRN (09:03)
[2017-07-12] MEDS: cefTRIAXone 1 gm 1 GM/100 ML BAG IVPB SCH (09:41)
--- NOTE | 2017-07-12 12:34 | CP.PCM.PN ---
<Tony,Kovil V - Last Filed: 07/12/17 20:06> Objective - Vital Signs/Intake and Output Vital Signs (last 24 hours): Temp Pulse Resp BP Pulse Ox 98.6 F 88 20 135/77 94 L 07/12/17 16:26 07/12/17 16:26 07/12/17 16:26 07/12/17 16:26 07/12/17 16:26 Intake and Output: 07/12/17 07/13/17 18:59 06:59 Intake Total 780 Output Total 172 Balance 608 - Medications Medications: Current Medications Acetaminophen (Tylenol 325mg Tab) 650 mg PO Q6H [facility] Last Admin: 07/12/17 18:23 Dose: 650 mg Famotidine (Pepcid) 40 mg PO HS [facility] Last Admin: 07/11/17 21:52 Dose: Not Given Heparin Sodium (Porcine) (Heparin) 5,000 units SC Q12 [facility] PRN Reason: Protocol Last Admin: 07/12/17 09:41 Dose: 5,000 units Hydromorphone HCl (Dilaudid) 1 mg IVP Q4H PRN PRN Reason: Pain, severe (8-10) Last Admin: 07/12/17 13:31 Dose: 1 mg Metronidazole (Flagyl) 500 mg in 100 mls @ 100 mls/hr IVPB Q8 [facility] PRN Reason: Protocol Last Admin: 07/12/17 13:00 Dose: 100 mls/hr Ceftriaxone Sodium (Rocephin 1 Gram Ivpb) 1 gm in 100 mls @ 100 mls/hr IVPB DAILY [facility] PRN Reason: Protocol Last Admin: 07/12/17 09:41 Dose: 100 mls/hr Lactated Ringer's (Lactated Ringer's) 1,000 mls @ 150 mls/hr IV .Q6H40M [facility] Last Admin: 07/12/17 19:21 Dose: 150 mls/hr Ketorolac Tromethamine (Toradol) 30 mg IVP Q6 PRN PRN Reason: Pain, moderate (4-7) Metoprolol Tartrate (Lopressor) 12.5 mg PO DAILY [facility] Last Admin: 07/12/17 09:50 Dose: 12.5 mg Ondansetron HCl (Zofran Inj) 4 mg IVP Q6H PRN PRN Reason: Nausea/Vomiting Last Admin: 07/12/17 09:20 Dose: 4 mg Oxycodone/Acetaminophen (Percocet 5/325 Mg Tab) 1 tab PO Q4H PRN PRN Reason: Pain, moderate (4-7) Stop: 07/15/17 09:04 - Labs Labs: 07/12/17 06:50 07/12/17 06:50 PT 12.8 Seconds (9.9-11.8) H 07/05/17 20:10 INR 1.19 (0.93-1.08) H 07/05/17 20:10 APTT 29.7 Seconds (23.7-30.8) 07/05/17 20:10 Attending/Attestation - Attestation I have personally seen and examined this patient.: Yes I have fully participated in the care of the patient.: Yes I have reviewed all pertinent clinical information, including history, physical exam and plan: Yes Notes (Text): This is an addendum to GI progress report dictated by Renuka Nevarez APN.The patient was seen and examined earlier. Medical records, lab studies, imagings were reviewed. Last 24 hours events reviewed. Agreed with the above treatment plan as outlined in Renuka Nevarez APN's notes the with the addition of the following surgical dressing present complaining of some discomfort in the abdomen surgical area Status post a left hemicolectomy for severe diverticular disease with a microperforation Patient did have flexible sigmoidoscopy yesterday.. Patient did have to poor rectal polyps that were removed and the site was tattooed Scope was advanced up sigmoid colon multiple diverticula and inflammatory changes noticed the scope was started on Cipro for the period discussed with Dr. Calvillo. follow-up the pathology report Discussed with the patient at length Patient would be a need for colonoscopy in about 2-3 months time 07/12/17 20:06 <Renuka Nevarez - Last Filed: 07/14/17 13:02> Subjective - Date & Time of Evaluation Date of Evaluation: 07/12/17 Time of Evaluation: 09:00 - Subjective Subjective: Seen and examined at the bedside in the chart was reviewed earlier today. The patient is status post GI laparotomy,Rehman's procedure, and cystoscopy with insertion of ureteral catheter. The patient also prior to surgery had a flex sigmoidoscopy, found to have rectal polyp removed by EMR. The patient is awake , alert and oriented, denies nausea or vomiting, fever, chills, shortness of breath or chest pain. She does have postsurgical pain but is under control. Denies flatus or BM. Objective - Vital Signs/Intake and Output Vital Signs (last 24 hours): Temp Pulse Resp BP Pulse Ox 98.2 F 91 H 20 112/65 96 07/12/17 07:30 07/12/17 09:50 07/12/17 07:30 07/12/17 09:50 07/12/17 07:30 Intake and Output: 07/12/17 07/12/17 06:59 18:59 Intake Total 2100 Output Total 400 170 Balance 1700 -170 - Medications Medications: Current Medications Acetaminophen (Tylenol 325mg Tab) 650 mg PO Q6H [facility] Last Admin: 07/12/17 08:02 Dose: Not Given Famotidine (Pepcid) 40 mg PO HS [facility] Last Admin: 07/11/17 21:52 Dose: Not Given Heparin Sodium (Porcine) (Heparin) 5,000 units SC Q12 [facility] PRN Reason: Protocol Last Admin: 07/12/17 09:41 Dose: 5,000 units Hydromorphone HCl (Dilaudid) 1 mg IVP Q4H PRN PRN Reason: Pain, severe (8-10) Last Admin: 07/12/17 09:19 Dose: 1 mg Metronidazole (Flagyl) 500 mg in 100 mls @ 100 mls/hr IVPB Q8 [facility] PRN Reason: Protocol Last Admin: 07/12/17 05:53 Dose: 100 mls/hr Ceftriaxone Sodium (Rocephin 1 Gram Ivpb) 1 gm in 100 mls @ 100 mls/hr IVPB DAILY [facility] PRN Reason: Protocol Last Admin: 07/12/17 09:41 Dose: 100 mls/hr Lactated Ringer's (Lactated Ringer's) 1,000 mls @ 150 mls/hr IV .Q6H40M [facility] Last Admin: 07/12/17 03:48 Dose: 150 mls/hr Ketorolac Tromethamine (Toradol) 30 mg IVP Q6 PRN PRN Reason: Pain, moderate (4-7) Metoprolol Tartrate (Lopressor) 12.5 mg PO DAILY [facility] Last Admin: 07/12/17 09:50 Dose: 12.5 mg Ondansetron HCl (Zofran Inj) 4 mg IVP Q6H PRN PRN Reason: Nausea/Vomiting Last Admin: 07/12/17 09:20 Dose: 4 mg Oxycodone/Acetaminophen (Percocet 5/325 Mg Tab) 1 tab PO Q4H PRN PRN Reason: Pain, moderate (4-7) Stop: 07/15/17 09:04 - Labs Labs: 07/12/17 06:50 07/12/17 06:50 PT 12.8 Seconds (9.9-11.8) H 07/05/17 20:10 INR 1.19 (0.93-1.08) H 07/05/17 20:10 APTT 29.7 Seconds (23.7-30.8) 07/05/17 20:10 - Constitutional Appears: No Acute Distress - Head Exam Head Exam: NORMOCEPHALIC - Eye Exam Eye Exam: Normal appearance. absent: Scleral icterus - ENT Exam ENT Exam: Mucous Membranes Moist - Neck Exam Neck Exam: Normal Inspection - Respiratory Exam Respiratory Exam: NORMAL BREATHING PATTERN. absent: Respiratory Distress - Cardiovascular Exam Cardiovascular Exam: +S1, +S2 - GI/Abdominal Exam GI & Abdominal Exam: Soft, Hypoactive Bowel Sounds Additional comments: abdominal binder on, mid abdominal dressings with old drainage, no bright red blood noted, positive bowel sounds hypoactive - Extremities Exam Extremities Exam: Normal Capillary Refill. absent: Calf Tenderness, Pedal Edema Additional comments: bilateral SCD boots on - Neurological Exam Neurological Exam: Alert, Awake, Oriented x3 Assessment and Plan - Assessment and Plan (Free Text) Assessment: Assessment: Recurrent acute diverticulitis, status post GI laparotomy with Left partial colectomy, r/o malignancy Obesity Hypertension Elevated liver enzymes, abd. US 06/06/17neg and hep panel neg, maybe medication induced, will monitor. Plan: NPO, diet as per surgery IVF for hydration Continue IV antibiotics Continue GI prophylaxis Encourage to get OOB/ambulation, pt has TEDS trend LFT surgical FU Seen and discussed s/ Dr. Jimenez.
--- NOTE | 2017-07-12 13:35 | PN ---
DATE: 07/12/2017 SUBJECTIVE: This 47-year-old female was examined at her bedside. Her case was reviewed in detail with herself and her nurse. The patient is status post exploratory laparotomy and left colon colectomy with reanastomosis and the surgical pathology report is pending at present. I have discussed this case in detail with Dr. Delta Calvillo from surgery, who feels that the descending colon mass is consistent with possible carcinoma, pathology is pending at present. The patient is lying in bed. She is wearing SCD antiembolism stockings. She is alert and oriented x3 and complaining of postoperative pain. She denies any fever, chills, shortness of breath, or chest pain, and states she has passed no flatus today. PHYSICAL EXAMINATION: VITAL SIGNS: Temperature is 98.2, respirations 20, pulse 92 and blood pressure 112/65 with a pulse ox of 96% on room air. HEENT: Head is normocephalic, atraumatic. Eyes: No icterus. NECK: Supple. HEART: Regular S1 and S2. No pathological rubs, murmurs or gallops. LUNGS: Clear to auscultation. ABDOMEN: Obese, nontender. There is no palpable organomegaly. No rebound, no guarding, no tenderness. She is wearing an abdominal binder and her wound dressing is clean and dry. LOWER EXTREMITY: She is wearing a SCD antiembolism stockings. There is no edema. SKIN: Without rash. NEUROLOGIC: Grossly intact. PSYCHOLOGIC: Alert and oriented x3. LABORATORY DATA: White count 12,500, hemoglobin 10.5, hematocrit 32.2, platelets are 338,000. Sodium 136, potassium 4.7, chloride 102, bicarb 29, BUN 5, creatinine 0.6, random blood sugar is 110. All liver function testing was normal including bilirubin 0.7, AST 34, ALT 22, and alk phos 74. Hepatitis A, B, C serology was negative. Blood culture shows no growth to date. IMPRESSION: This is a 47-year-old female status post left partial colon colectomy with reanastomosis in the setting of diverticulitis, rule out colon cancer with comorbidities of morbid obesity, gastritis, postoperative anemia, postoperative leukocytosis, degenerative arthritis, and history of sciatica. PLAN: At present, I have discussed with the patient and nursing, is to get the patient out of bed to chair. I have ordered physical therapy for ambulation safety and ultimately staircase safety climbing. She did perform incentive spirometry for me and has been advised to do this q. 1 hour and has an order for clear liquid diet according to surgery. She will continue on Zofran 4 mg IV q. 6 hours p.r.n. nausea and vomiting, Rocephin 1 g IV q. 24, Flagyl 500 mg IV q. 8, Pepcid 40 mg p.o. at bedtime, metoprolol tartrate 12.5 mg p.o. daily, Dilaudid 1 mg IV q. 4 hours p.r.n. severe pain, Percocet one tablet p.o. q. 4 hours p.r.n. moderate pain. She is awaiting surgical pathology reporting. She has been ordered for metabolic panel as well as a CBC in the a.m. Pending surgical pathology additional workup will be entertained and all this was discussed in detail with the patient and nursing at the bedside. All questions were answered. Karol Banks MD MTDD
--- NOTE | 2017-07-12 21:49 | OP ---
PREOPERATIVE DIAGNOSIS: Mass of the descending colon. POSTOPERATIVE DIAGNOSIS: Mass of the descending colon, probably cancer. PROCEDURES PERFORMED: Exploratory laparotomy, lysis of adhesions, takedown of the left colon, takedown of the splenic flexure, placement of a Moore, ureteral catheters were placed by Dr. Ramos, sigmoidoscopy to about 40 cm was done by Dr. Jimenez with 2 polypectomies. SURGEON: Delta Calvillo MD [employer] MANAGER: . FINDINGS: Large mass of the descending colon with marked inflammation laterally and adenopathy. Liver was normal. DRAINS: None. ESTIMATED BLOOD LOSS: 100 mL. COMPLICATIONS: None. DESCRIPTION OF PROCEDURE: In the operating room, the patient had ureteral catheters placed by Dr. Ramos. At the end of the procedure, these were removed intact without any issue. Moore was replaced. Dr. Jimenez did a sigmoidoscopy to about 40 cm. Two polypectomies were performed without issue. There was edema above this, but no lumen that could be accessed. In the operating room, using lithotomy position and the PURLER stirrups, the abdomen was prepped and draped in the usual manner. NG tube was placed and the operation began. Because the tumor was higher than usual, a vertical incision was made parallel through the umbilicus and the abdomen was entered. Throughout the course, the incision was enlarged as necessary. Exploration showed the mass that was readily palpable. The uterus was enlarged. The ovaries were unremarkable. The mass was densely adherent laterally. The liver was unremarkable. There was adenopathy palpable. The line of Toldt down in the pelvis was divided the tubes from it and this was brought superiorly. It was very thick laterally directly next to the tumor. Going above it, we were able to get some space, but eventually converted it. The incision was enlarged and the splenic flexure was taken down. This was done by lifting up the omentum, pulling down on the colon, entering the lesser sac, and under direct vision lysing the adhesions from the colon. Eventually, I was able to divide the anterior attachments, but the posterior line of Toldt was still intact. Pulling medially, we were able to under direct vision divide that and this allowed us to roll the splenic flexure down very nicely. The bowel there was decompressed and well prepped. The line of Toldt was then rolled forward palpating the kidney. I could not palpate with certainty the ureteral catheters because of the thickness of the tissue. Staying right on the plane, the ascending colon was rolled anteriorly going below and above, and pulled down eventually very nicely. Ureteral catheters were left intact. There was no perforation or evidence of diverticulitis that I could see. The colon was divided proximally and distally with ANTONIA and once the mesentery was freed, it was divided with Harmonic scalpel under direct vision. Multiple lymph nodes that were hard were felt suggesting malignancy. The specimen was opened, although it was not absolutely certain at the time, the eventual gross from pathology showed this to be tumor. Hemostasis was excellent. There was a little bit of bleeding in the left upper quadrant that was packed and dried very nicely. There was no residual tumor left behind. The margins were clearly free. The tumor itself was a little bit unusual than seen to be in the body of the colon and was about 10 cm in length. The proximal and distal bowel were lined up as these were very mobile at this point. They were lined up with silk's, protected. A small rivera was made at the end. ANTONIA was run in and fired. The defect was closed with Allis and TA60. A was placed without issue. The anastomosis was well done and viable. Prior to the ANTONIA, the proximal end was cleaned and several centimeters were removed. The abdomen was irrigated and dried. On discussion of a drain, I felt there was no need to drain it. The omentum was placed over the anastomosis. The incision was closed with running #1 PDS above and below, injected with Marcaine. The subcutaneous tissue was closed with Vicryl and misa. Wounds were injected with Marcaine. The patient was taken to the recovery room in good condition. All the sponge and needle counts were clear and correct. Delta Calvillo MD
[2017-07-12] MEDS: Oxycodone/Acetaminophen 5/325 mg Tab PO PRN (22:28)
[2017-07-13] MEDS: metroNIDAZOLE IV 500 mg/100 ml 500 MG/100 ML BAG IVPB SCH ×3 (06:17→21:13)
[2017-07-13 07:12] LABS: BASO # 0.01 K/mm3 (0.0-2.0); BASO % 0.1 % (0.0-3.0); EOS % 0.2 % (1.5-5.0); GRAN # 11.93 (1.4-6.5); GRAN % 82.8 % (50.0-68.0); HEMATOCRIT 28.9 % (36.0-48.0); LYMPH % 7.2 % (22.0-35.0); MEAN CELL VOLUME 87.6 fl (80.0-105.0); MEAN CORPUSCULAR HEMOGLOBIN 28.8 pg (25.0-35.0); MEAN CORPUSCULAR HGB CONC 32.9 g/dl (31.0-37.0); MEAN PLATELET VOLUME 9.1 fl (7.0-11.0); MONO # 1.4 (0.1-0.6); MONO % 9.7 % (1.0-6.0); RED CELL DISTRIBUTION WIDTH 12.9 % (11.5-14.5); WHITE BLOOD COUNT 14.4 10^3/ul (4.5-11.0)
[2017-07-13 07:55] LABS: BLOOD UREA NITROGEN 4 mg/dL (7-21); CALCIUM 8.4 mg/dL (8.4-10.5); CARBON DIOXIDE 29 mmol/L (21-33); CHLORIDE 96 mmol/L (98-107); GFR AFRICAN-AMERICAN > 60; GLUCOSE,RANDOM 92 mg/dL (70-110); POTASSIUM 3.8 mmol/L (3.6-5.0); SODIUM 132 mmol/L (132-148)
--- NOTE | 2017-07-13 09:51 | CP.PCM.PN ---
Subjective - Date & Time of Evaluation Date of Evaluation: 07/13/17 Time of Evaluation: 09:48 - Subjective Subjective: Surgery progress note for Dr. Calvillo Patient seen and examined at bedside. Laying comfortably in bed. Reports no acute events overnight. Pain is dull but localized to mid-abdomen and well controlled. Ambulating to bedside commode without difficulty. No flatus or bowel movement. Denies any nausea, vomiting, fever, chills, night sweats, chest pain or shortness of breath. Objective - Vital Signs/Intake and Output Vital Signs (last 24 hours): Temp Pulse Resp BP Pulse Ox 98.3 F 90 20 113/61 95 07/13/17 00:00 07/13/17 00:00 07/13/17 00:00 07/13/17 00:00 07/13/17 00:00 Intake and Output: 07/13/17 07/13/17 06:59 18:59 Intake Total 1080 Output Total 850 Balance 230 - Medications Medications: Current Medications Acetaminophen (Tylenol 325mg Tab) 650 mg PO Q6H [facility] Last Admin: 07/13/17 06:17 Dose: 650 mg Famotidine (Pepcid) 40 mg PO HS [facility] Last Admin: 07/12/17 21:28 Dose: 40 mg Heparin Sodium (Porcine) (Heparin) 5,000 units SC Q12 [facility] PRN Reason: Protocol Last Admin: 07/12/17 21:28 Dose: 5,000 units Hydromorphone HCl (Dilaudid) 1 mg IVP Q4H PRN PRN Reason: Pain, severe (8-10) Last Admin: 07/12/17 20:25 Dose: 1 mg Metronidazole (Flagyl) 500 mg in 100 mls @ 100 mls/hr IVPB Q8 [facility] PRN Reason: Protocol Last Admin: 07/13/17 06:17 Dose: 100 mls/hr Ceftriaxone Sodium (Rocephin 1 Gram Ivpb) 1 gm in 100 mls @ 100 mls/hr IVPB DAILY [facility] PRN Reason: Protocol Last Admin: 07/12/17 09:41 Dose: 100 mls/hr Lactated Ringer's (Lactated Ringer's) 1,000 mls @ 150 mls/hr IV .Q6H40M [facility] Last Admin: 07/12/17 19:21 Dose: 150 mls/hr Ketorolac Tromethamine (Toradol) 30 mg IVP Q6 PRN PRN Reason: Pain, moderate (4-7) Metoprolol Tartrate (Lopressor) 12.5 mg PO DAILY [facility] Last Admin: 07/12/17 09:50 Dose: 12.5 mg Ondansetron HCl (Zofran Inj) 4 mg IVP Q6H PRN PRN Reason: Nausea/Vomiting Last Admin: 07/12/17 09:20 Dose: 4 mg Oxycodone/Acetaminophen (Percocet 5/325 Mg Tab) 1 tab PO Q4H PRN PRN Reason: Pain, moderate (4-7) Stop: 07/15/17 09:04 Last Admin: 07/12/17 22:28 Dose: 1 tab - Labs Labs: 07/13/17 07:05 07/13/17 07:05 PT 12.8 Seconds (9.9-11.8) H 07/05/17 20:10 INR 1.19 (0.93-1.08) H 07/05/17 20:10 APTT 29.7 Seconds (23.7-30.8) 07/05/17 20:10 - Constitutional Appears: Non-toxic, No Acute Distress - Head Exam Head Exam: NORMAL INSPECTION - Eye Exam Eye Exam: EOMI - ENT Exam ENT Exam: Mucous Membranes Moist - Respiratory Exam Respiratory Exam: NORMAL BREATHING PATTERN. absent: Accessory Muscle Use, Respiratory Distress Additional comments: Incentive spirometer at bedside and patient reaching 500 mL - Cardiovascular Exam Cardiovascular Exam: REGULAR RHYTHM. absent: Bradycardia, Tachycardia - GI/Abdominal Exam GI & Abdominal Exam: Soft. absent: Distended Additional comments: Appropriate post op tenderness around midline incision site Incision clean, dry, and intact without surrounding erythema or drainage Dressings changed and abdominal binder replaced - Extremities Exam Extremities Exam: absent: Calf Tenderness - Neurological Exam Neurological Exam: Alert, Awake - Psychiatric Exam Psychiatric exam: Normal Affect, Normal Mood - Skin Skin Exam: Dry, Intact, Normal Color, Warm Assessment and Plan - Assessment and Plan (Free Text) Assessment: 47F s/p partial left hemicolectomy with primary anastamosis POD#2 Plan: - NPO - Analgesics - Anti-emetics - Rectal polyp path results: * Distal polyp: reactive submucosal lymphoid follicle, without dysplasia * Proximal polyp: benign colonic mucosa with surface hyperplastic changes and cautery artifact - f/u colon pathology - further recs per Dr. Rajinder Barrientos, PGY-1
[2017-07-13] MEDS: cefTRIAXone 1 gm 1 GM/100 ML BAG IVPB SCH (10:24)
--- NOTE | 2017-07-13 10:47 | CP.PCM.PN ---
<Tony,Kovil V - Last Filed: 07/13/17 21:15> Objective - Vital Signs/Intake and Output Vital Signs (last 24 hours): Temp Pulse Resp BP Pulse Ox 98 F 94 H 20 135/75 95 07/13/17 07:00 07/13/17 07:00 07/13/17 07:00 07/13/17 07:00 07/13/17 07:00 Intake and Output: 07/13/17 07/14/17 18:59 06:59 Intake Total 600 Balance 600 - Medications Medications: Current Medications Acetaminophen (Tylenol 325mg Tab) 650 mg PO Q6H [facility] Last Admin: 07/13/17 18:23 Dose: 650 mg Famotidine (Pepcid) 40 mg PO HS [facility] Last Admin: 07/12/17 21:28 Dose: 40 mg Heparin Sodium (Porcine) (Heparin) 5,000 units SC Q12 [facility] PRN Reason: Protocol Last Admin: 07/13/17 10:24 Dose: 5,000 units Hydromorphone HCl (Dilaudid) 0.5 mg IVP Q6H PRN PRN Reason: Pain, severe (8-10) Last Admin: 07/13/17 14:25 Dose: 0.5 mg Metronidazole (Flagyl) 500 mg in 100 mls @ 100 mls/hr IVPB Q8 [facility] PRN Reason: Protocol Last Admin: 07/13/17 13:52 Dose: 100 mls/hr Ceftriaxone Sodium (Rocephin 1 Gram Ivpb) 1 gm in 100 mls @ 100 mls/hr IVPB DAILY [facility] PRN Reason: Protocol Last Admin: 07/13/17 10:24 Dose: 100 mls/hr Dextrose/Sodium Chloride (Dextrose 5%/0.9% Ns 1000 Ml) 1,000 mls @ 100 mls/hr IV .Q10H [facility] Ketorolac Tromethamine (Toradol) 30 mg IVP Q6 PRN PRN Reason: Pain, moderate (4-7) Metoprolol Tartrate (Lopressor) 12.5 mg PO DAILY [facility] Last Admin: 07/13/17 10:25 Dose: 12.5 mg Ondansetron HCl (Zofran Inj) 4 mg IVP Q6H PRN PRN Reason: Nausea/Vomiting Last Admin: 07/12/17 09:20 Dose: 4 mg Oxycodone/Acetaminophen (Percocet 5/325 Mg Tab) 1 tab PO Q4H PRN PRN Reason: Pain, moderate (4-7) Stop: 07/15/17 09:04 Last Admin: 07/12/17 22:28 Dose: 1 tab - Labs Labs: 07/13/17 07:05 07/13/17 07:05 PT 12.8 Seconds (9.9-11.8) H 07/05/17 20:10 INR 1.19 (0.93-1.08) H 07/05/17 20:10 APTT 29.7 Seconds (23.7-30.8) 07/05/17 20:10 Attending/Attestation - Attestation I have personally seen and examined this patient.: Yes I have fully participated in the care of the patient.: Yes I have reviewed all pertinent clinical information, including history, physical exam and plan: Yes Notes (Text): This is an addendum to GI progress report dictated by Renuka Nevarez APN.The patient was seen and examined earlier. Medical records, lab studies, imagings were reviewed. Last 24 hours events reviewed. Agreed with the above treatment plan as outlined in Renuka Nevarez APN's notes the with the addition of the following complaining of discomfort in the surgical site Status post flexible sigmoidoscopy and 2 polypectomies in the rectum. The pathology of the polyps were nonadenomatous. Final path off: Pending status post left colon resection Elective colonoscopy in 3 months to revaluate the remainder of the colon 07/13/17 21:15 <Renuka Nevarez - Last Filed: 07/14/17 13:02> Subjective - Date & Time of Evaluation Date of Evaluation: 07/13/17 Time of Evaluation: 08:15 - Subjective Subjective: Seen and examined at the bedside earlier today, patient was getting assisted out of bed to urinate. She reports belching, no flatus or BM yet. Denies nausea, vomiting, positive postop abdominal pain. No acute overnight events reported, denies fever or chills. Tolerated some clears. Objective - Vital Signs/Intake and Output Vital Signs (last 24 hours): Temp Pulse Resp BP Pulse Ox 98 F 94 H 20 135/75 95 07/13/17 07:00 07/13/17 07:00 07/13/17 07:00 07/13/17 07:00 07/13/17 07:00 Intake and Output: 07/13/17 07/13/17 06:59 18:59 Intake Total 1080 Output Total 850 Balance 230 - Medications Medications: Current Medications Acetaminophen (Tylenol 325mg Tab) 650 mg PO Q6H [facility] Last Admin: 07/13/17 06:17 Dose: 650 mg Famotidine (Pepcid) 40 mg PO HS [facility] Last Admin: 07/12/17 21:28 Dose: 40 mg Heparin Sodium (Porcine) (Heparin) 5,000 units SC Q12 [facility] PRN Reason: Protocol Last Admin: 07/13/17 10:24 Dose: 5,000 units Hydromorphone HCl (Dilaudid) 0.5 mg IVP Q6H PRN PRN Reason: Pain, severe (8-10) Metronidazole (Flagyl) 500 mg in 100 mls @ 100 mls/hr IVPB Q8 [facility] PRN Reason: Protocol Last Admin: 07/13/17 06:17 Dose: 100 mls/hr Ceftriaxone Sodium (Rocephin 1 Gram Ivpb) 1 gm in 100 mls @ 100 mls/hr IVPB DAILY [facility] PRN Reason: Protocol Last Admin: 07/13/17 10:24 Dose: 100 mls/hr Dextrose/Sodium Chloride (Dextrose 5%/0.9% Ns 1000 Ml) 1,000 mls @ 100 mls/hr IV .Q10H [facility] Ketorolac Tromethamine (Toradol) 30 mg IVP Q6 PRN PRN Reason: Pain, moderate (4-7) Metoprolol Tartrate (Lopressor) 12.5 mg PO DAILY [facility] Last Admin: 07/13/17 10:25 Dose: 12.5 mg Ondansetron HCl (Zofran Inj) 4 mg IVP Q6H PRN PRN Reason: Nausea/Vomiting Last Admin: 07/12/17 09:20 Dose: 4 mg Oxycodone/Acetaminophen (Percocet 5/325 Mg Tab) 1 tab PO Q4H PRN PRN Reason: Pain, moderate (4-7) Stop: 07/15/17 09:04 Last Admin: 07/12/17 22:28 Dose: 1 tab - Labs Labs: 07/13/17 07:05 07/13/17 07:05 PT 12.8 Seconds (9.9-11.8) H 07/05/17 20:10 INR 1.19 (0.93-1.08) H 07/05/17 20:10 APTT 29.7 Seconds (23.7-30.8) 07/05/17 20:10 - Constitutional Appears: No Acute Distress - Head Exam Head Exam: NORMOCEPHALIC - Eye Exam Eye Exam: Normal appearance. absent: Scleral icterus - ENT Exam ENT Exam: Mucous Membranes Moist - Neck Exam Neck Exam: Normal Inspection - Respiratory Exam Respiratory Exam: Clear to Ausculation Bilateral, NORMAL BREATHING PATTERN. absent: Respiratory Distress - Cardiovascular Exam Cardiovascular Exam: +S1, +S2 - GI/Abdominal Exam GI & Abdominal Exam: Soft, Tenderness, Normal Bowel Sounds. absent: Guarding, Rebound Additional comments: dressing D&I. - Extremities Exam Extremities Exam: Normal Capillary Refill. absent: Calf Tenderness, Pedal Edema Assessment and Plan - Assessment and Plan (Free Text) Assessment: Assessment: Recurrent acute diverticulitis, status post GI laparotomy with Left partial colectomy, r/o malignancy Obesity Hypertension Elevated liver enzymes, abd. US 06/06/17neg and hep panel neg, maybe medication induced, will monitor, now normalized. Plan: on clears, diet as per surgery IVF for hydration Continue IV antibiotics Continue GI prophylaxis Encourage to get OOB/ambulation, pt has TEDS,incentive spirometry surgical FU Discuss w/ patient elective outpatient colonoscopy when recovered post op. Had flexsig and rectal polyps removed , need full colon. Seen and discussed s/ Dr. Jimenez.
--- NOTE | 2017-07-13 12:59 | PN ---
DATE: 07/13/2017 SUBJECTIVE: This 47-year-old female was examined at her bedside and her case was reviewed in detail with her nurse, Marline Garcia,registered nurse. The patient is out of bed to chair. Yesterday, she required approximately five doses of parenteral Dilaudid, she has had none today. The patient states that she has had no fever or chills. She was examined by surgery earlier today. They commented that they changed her wound dressing which was clean and dry and reapplied her abdominal binder. At present, the patient has had no bowel movements and is passing no gas, but has had no vomiting. On physical examination, she is out of bed to chair. She is wearing SCDs antiembolism stockings and denying any chest pain or shortness of breath. There have been no reports of fever or chills.Surgery has removed her jackson and NG tubes. She is voiding easily. PHYSICAL EXAMINATION: VITAL SIGNS: Temperature of 98, respirations of 20, pulse of 94 and blood pressure of 135/75 with a pulse oximetry of 95% room air. HEENT: Head is normocephalic and atraumatic. EYES: No icterus. NECK: Supple. HEART: Regular S1 and S2. No pathological rubs, murmurs or gallops. LUNGS: Clear to auscultation. GASTROINTESTINAL: Abdomen is obese and nontender. There is no palpable organomegaly. No rebound, no guarding, and no tenderness. The wound dressing is clean and dry and she is wearing an abdominal binder. EXTREMITIES: Show no clubbing, no cyanosis, and no edema. She is wearing SCDs antiembolism stockings. SKIN: Warm and dry. NEUROLOGICAL: Exam is grossly intact. PSYCHOLOGICAL: Alert and oriented x3. LABORATORY DATA: White count of 14,400, hemoglobin of 9.5, hematocrit of 28.9, and platelets of 377,000. Sodium of 132, potassium of 3.8, chloride of 96, bicarbonate of 29, BUN of 4, and creatinine of 0.5. Random blood sugar is 92. All liver function testing was normal including bilirubin of 0.7, AST of 34, ALT of 22 and alkaline phosphatase of 74. Hepatitis A, B and C serology is negative and surgical pathology remains pending. IMPRESSION: This is a 47-year-old female with diverticulitis, status post left descending colon resection with end-to-end anastomosis at which time surgery Dr. Calvillo commented he felt a hard mass like process. His suspicion for colon cancer is high and pathology report remains pending. PLAN: The plan at present is to maintain the patient out of bed to chair, I have reviewed with her nurse that we will stop her Ringer's lactate and start D5 0.9 at 100 mL per hour. She has been cleared by surgery for clear liquids and her Dilaudid will be reduced to 0.5 mg IV q. 6 hours p.r.n. for severe pain. It should be noted that she has had none administered today. She is also receiving Flagyl 500 mg IV q. 8 hours., heparin 5000 units subcutaneously q. 12 hours., metoprolol tartrate 12.5 mg p.o. daily, Pepcid 40 mg p.o. at bed time, Rocephin 1 g IV q. 24 hours. and Tylenol 650 p.o. q. 6 hours. p.r.n. pain or temperature greater than 101. She is also ordered to have Zofran 4 mg IV q. 6 hours. p.r.n. nausea and vomiting. She did perform incentive spirometry for me. She is to be ambulated with assistance. Her Jackson catheter has been discontinued and wound dressings will be done daily by surgery as indicated. I have instructed the nurse to ensure that the patient does receive physical therapy today for ambulation safety and all this was discussed in detail with the patient at her bedside and all questions were answered. All of the above was reviewed in detail with the patient, nursing and co-consultants. Greater than fifty minutes were spent in the care, management and counseling of this patient today. Karol Banks MD MTDMelissa
[2017-07-13] MEDS: HYDROmorphone 0.5 mg/0.5 ml ISec IVP PRN (14:25)
[2017-07-13] MEDS: Dextrose 5%/0.9% NS 1,000 ML IV SCH (21:12)
[2017-07-13] MEDS: Oxycodone/Acetaminophen 5/325 mg Tab PO PRN (22:05)
[2017-07-14] MEDS: HYDROmorphone 0.5 mg/0.5 ml ISec IVP PRN (03:15)
[2017-07-14] MEDS: metroNIDAZOLE IV 500 mg/100 ml 500 MG/100 ML BAG IVPB SCH (06:10)
[2017-07-14 07:13] LABS: HEMATOCRIT 28.2 % (36.0-48.0); MEAN CELL VOLUME 87.9 fl (80.0-105.0); MEAN CORPUSCULAR HEMOGLOBIN 28.7 pg (25.0-35.0); MEAN CORPUSCULAR HGB CONC 32.6 g/dl (31.0-37.0); MEAN PLATELET VOLUME 9.3 fl (7.0-11.0); RED CELL DISTRIBUTION WIDTH 13.1 % (11.5-14.5); WHITE BLOOD COUNT 10.9 10^3/ul (4.5-11.0)
[2017-07-14] MEDS: cefTRIAXone 1 gm 1 GM/100 ML BAG IVPB SCH (10:09)
[2017-07-14] MEDS: Oxycodone/Acetaminophen 5/325 mg Tab PO PRN ×2 (10:10→16:53)
[2017-07-14] MEDS: Dextrose 5%/0.9% NS 1,000 ML IV SCH ×2 (10:13→11:52)
[2017-07-14] MEDS ORDERED: HYDROmorphone 0.5 mg/0.5 ml ISec IVP PRN (10:48)
--- NOTE | 2017-07-14 12:29 | PN ---
DATE: SUBJECTIVE: This 47-year-old female was examined at her bedside. The case was reviewed in detail with her nurse, Arline Harmon RN. The patient is receiving physical therapy at the moment, ambulating with a rolling walker and her IV pump. She denied any chest pain, shortness breath, fever or chills. States she has had no flatus or bowel movement but is tolerating clear liquids as ordered by surgery. To date, there were no pathological reports from her surgical procedure and she is voiding easily without Moore. PHYSICAL EXAMINATION: VITAL SIGNS: Temperature is 98.1, respirations 20, pulse 79 and blood pressure 133/70 with a pulse ox of 99% on room air. HEENT: Head: Normocephalic, atraumatic. Eyes: No icterus. NECK: Supple. HEART: Regular S1, S2. No pathological rubs, murmurs or gallops. LUNGS: Clear to auscultation. ABDOMEN: Soft, nontender. No palpable organomegaly. No rebound, no guarding. No tenderness. Her wound dressing is intact and dry. She is wearing an abdominal binder. EXTREMITIES: Show no clubbing, no cyanosis, no edema. SKIN: Without rash. NEUROLOGIC: Grossly intact. PSYCHOLOGICAL: Alert and oriented x3. LABORATORY DATA: White count 10,900, hemoglobin 9.2, hematocrit 28.2, platelets 3,23,000. Sodium 132, potassium 3.8, chloride 96, bicarb 29, BUN 4, creatinine 0.5, random blood sugar is 92. All liver function testing was normal including bilirubin 0.7, AST 34, ALT 22 and alkaline phosphatase 74. Hepatitis A, B, C serology is negative. IMPRESSION: A 47-year-old female who completed IV antibiotics for diverticulitis, went to the OR for microperforation and mass-like lesion of her descending colon suspicious for carcinoma with official pathology reports pending at present with comorbidities of morbid obesity, degenerative arthritis, spinal arthritis and sciatica. PLAN: The plan at present, as discussed with the patient, is to continue ambulation with assistance. She continues on D5 0.45 saline which I will lower to 70 mL/hour. Her Dilaudid will be decreased to 0.5 mg IV q. 8 hours p.r.n. severe pain and as discussed with the patient and nursing staff we will try to wean the patient off parenteral analgesia within the next 48 hours. She continues on Flagyl 500 mg IV q. 8 hours, Rocephin 1 g IV q. 24 hours, heparin 5000 units subQ q. 12 hours, metoprolol tartrate 12.5 mg p.o. daily, Pepcid 40 mg p.o. at bedtime, Percocet 5-325 mg one p.o. q. 6 hours p.r.n. severe pain and Tylenol 650 p.o. q. 6 hours p.r.n. mild pain with Zofran 4 mg IV q. 6 hours p.r.n. nausea and vomiting. The patient is requested to do incentive spirometry q. 1 hour. She will wear antiembolism stockings that will be removed at bedtime. I have discussed with her physical therapist at the bedside that she will ultimately need staircase safety training since she has seven steps into her home. Her overall prognosis remains stable at present. All of the above was discussed in detail with the patient. All questions were answered and greater than fifty minutes was spent in the care management and counseling of this patient today with nursing, physical therapy and co-consultants Karol Banks MD MTDD
--- NOTE | 2017-07-14 13:06 | CP.PCM.PN ---
<Tony,Kovil V - Last Filed: 07/14/17 22:15> Objective - Vital Signs/Intake and Output Vital Signs (last 24 hours): Temp Pulse Resp BP Pulse Ox 99.5 F 82 20 141/79 90 L 07/14/17 16:00 07/14/17 16:00 07/14/17 16:00 07/14/17 16:00 07/14/17 16:00 Intake and Output: 07/14/17 07/15/17 18:59 06:59 Intake Total 360 Output Total 750 Balance -390 - Medications Medications: Current Medications Acetaminophen (Tylenol 325mg Tab) 650 mg PO Q6H [facility] Last Admin: 07/14/17 15:54 Dose: Not Given Famotidine (Pepcid) 40 mg PO HS [facility] Last Admin: 07/14/17 21:46 Dose: 40 mg Heparin Sodium (Porcine) (Heparin) 5,000 units SC Q12 [facility] PRN Reason: Protocol Last Admin: 07/14/17 21:46 Dose: 5,000 units Hydromorphone HCl (Dilaudid) 0.5 mg IVP Q8H PRN PRN Reason: Pain, severe (8-10) Dextrose/Sodium Chloride (Dextrose 5%/0.9% Ns 1000 Ml) 1,000 mls @ 70 mls/hr IV .[id number] [facility] Last Admin: 07/14/17 11:52 Dose: 70 mls/hr Ketorolac Tromethamine (Toradol) 30 mg IVP Q6 PRN PRN Reason: Pain, moderate (4-7) Metoprolol Tartrate (Lopressor) 12.5 mg PO DAILY [facility] Last Admin: 07/14/17 10:11 Dose: 12.5 mg Ondansetron HCl (Zofran Inj) 4 mg IVP Q6H PRN PRN Reason: Nausea/Vomiting Last Admin: 07/12/17 09:20 Dose: 4 mg Oxycodone/Acetaminophen (Percocet 5/325 Mg Tab) 1 tab PO Q6H PRN PRN Reason: Pain, moderate (4-7) Stop: 07/15/17 09:11 Last Admin: 07/14/17 16:53 Dose: 1 tab - Labs Labs: 07/14/17 06:30 07/13/17 07:05 PT 12.8 Seconds (9.9-11.8) H 07/05/17 20:10 INR 1.19 (0.93-1.08) H 07/05/17 20:10 APTT 29.7 Seconds (23.7-30.8) 07/05/17 20:10 Attending/Attestation - Attestation I have personally seen and examined this patient.: Yes I have fully participated in the care of the patient.: Yes I have reviewed all pertinent clinical information, including history, physical exam and plan: Yes Notes (Text): This is an addendum to GI progress report dictated by Renuka Nevarez APN.The patient was seen and examined earlier. Medical records, lab studies, imagings were reviewed. Last 24 hours events reviewed. 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 No N/V, tolerating oral intake. Post op pain, no acute distress, OOB to chair. (+) gas , no BM. Npo fever or chills. Objective - Vital Signs/Intake and Output Vital Signs (last 24 hours): Temp Pulse Resp BP Pulse Ox 98.1 F 79 20 133/70 99 07/14/17 07:27 07/14/17 10:11 07/14/17 07:27 07/14/17 10:11 07/14/17 07:27 Intake and Output: 07/14/17 07/14/17 06:59 18:59 Intake Total 2760 Output Total 400 Balance 2360 - Medications Medications: Current Medications Acetaminophen (Tylenol 325mg Tab) 650 mg PO Q6H [facility] Last Admin: 07/14/17 07:00 Dose: Not Given Famotidine (Pepcid) 40 mg PO HS [facility] Last Admin: 07/13/17 21:14 Dose: 40 mg Heparin Sodium (Porcine) (Heparin) 5,000 units SC Q12 [facility] PRN Reason: Protocol Last Admin: 07/14/17 10:12 Dose: 5,000 units Hydromorphone HCl (Dilaudid) 0.5 mg IVP Q8H PRN PRN Reason: Pain, severe (8-10) Dextrose/Sodium Chloride (Dextrose 5%/0.9% Ns 1000 Ml) 1,000 mls @ 70 mls/hr IV .[id number] [facility] Last Admin: 07/14/17 11:52 Dose: 70 mls/hr Ketorolac Tromethamine (Toradol) 30 mg IVP Q6 PRN PRN Reason: Pain, moderate (4-7) Metoprolol Tartrate (Lopressor) 12.5 mg PO DAILY [facility] Last Admin: 07/14/17 10:11 Dose: 12.5 mg Ondansetron HCl (Zofran Inj) 4 mg IVP Q6H PRN PRN Reason: Nausea/Vomiting Last Admin: 07/12/17 09:20 Dose: 4 mg Oxycodone/Acetaminophen (Percocet 5/325 Mg Tab) 1 tab PO Q6H PRN PRN Reason: Pain, moderate (4-7) Stop: 07/15/17 09:11 - Labs Labs: 07/14/17 06:30 07/13/17 07:05 PT 12.8 Seconds (9.9-11.8) H 07/05/17 20:10 INR 1.19 (0.93-1.08) H 07/05/17 20:10 APTT 29.7 Seconds (23.7-30.8) 07/05/17 20:10 - Constitutional Appears: No Acute Distress - Head Exam Head Exam: NORMOCEPHALIC - Eye Exam Eye Exam: Normal appearance. absent: Scleral icterus - ENT Exam ENT Exam: Mucous Membranes Moist - Neck Exam Neck Exam: Normal Inspection - Respiratory Exam Respiratory Exam: NORMAL BREATHING PATTERN. absent: Respiratory Distress - Cardiovascular Exam Cardiovascular Exam: +S1, +S2 - GI/Abdominal Exam GI & Abdominal Exam: Soft, Normal Bowel Sounds. absent: Guarding, Tenderness, Rebound Additional comments: Incision dressing Dry and intact - Extremities Exam Extremities Exam: Normal Capillary Refill. absent: Calf Tenderness, Pedal Edema - Neurological Exam Neurological Exam: Alert, Awake, Oriented x3 - Skin Skin Exam: Dry, Warm Assessment and Plan - Assessment and Plan (Free Text) Assessment: Assessment: Recurrent acute diverticulitis, status post GI laparotomy with Left partial colectomy, r/o malignancy Obesity Colon Polyps, biopsy negative for malignanacy Hypertension Elevated liver enzymes, abd. US 06/06/17neg and hep panel neg, maybe medication induced, will monitor, now normalized. Plan: on clears, diet as per surgery Continue IV antibiotics on Heparin SQ Continue GI prophylaxis Off antibiotics FU surgical pathology surgical FU Discuss w/ patient elective outpatient colonoscopy when recovered post op. Had flexsig and rectal polyps removed , need full colon. Seen and discussed s/ Dr. Jimenez.
[2017-07-15] MEDS: Dextrose 5%/0.9% NS 1,000 ML IV SCH ×2 (03:51→15:33)
[2017-07-15] MEDS: Oxycodone/Acetaminophen 5/325 mg Tab PO PRN (08:37)
--- NOTE | 2017-07-15 09:02 | CP.PCM.PN ---
Subjective - Date & Time of Evaluation Date of Evaluation: 07/15/17 Time of Evaluation: 07:10 - Subjective Subjective: Surgery Note for Dr. Calvillo 47F seen and examined at bedside. Patient states pain is controlled, patient denies flatus/bowel movement, denies nausea, vomiting, Tolerating liquid diet. Objective - Vital Signs/Intake and Output Vital Signs (last 24 hours): Temp Pulse Resp BP Pulse Ox 98.3 F 77 22 141/75 95 07/15/17 07:30 07/15/17 07:30 07/15/17 07:30 07/15/17 07:30 07/15/17 07:30 Intake and Output: 07/15/17 07/15/17 06:59 18:59 Intake Total 540 Output Total 2000 Balance -1460 - Medications Medications: Current Medications Acetaminophen (Tylenol 325mg Tab) 650 mg PO Q6H [facility] Last Admin: 07/15/17 08:36 Dose: Not Given Famotidine (Pepcid) 40 mg PO HS [facility] Last Admin: 07/14/17 21:46 Dose: 40 mg Heparin Sodium (Porcine) (Heparin) 5,000 units SC Q12 [facility] PRN Reason: Protocol Last Admin: 07/14/17 21:46 Dose: 5,000 units Hydromorphone HCl (Dilaudid) 0.5 mg IVP Q8H PRN PRN Reason: Pain, severe (8-10) Dextrose/Sodium Chloride (Dextrose 5%/0.9% Ns 1000 Ml) 1,000 mls @ 70 mls/hr IV .[id number] [facility] Last Admin: 07/15/17 03:51 Dose: 70 mls/hr Ketorolac Tromethamine (Toradol) 30 mg IVP Q6 PRN PRN Reason: Pain, moderate (4-7) Metoprolol Tartrate (Lopressor) 12.5 mg PO DAILY [facility] Last Admin: 07/14/17 10:11 Dose: 12.5 mg Ondansetron HCl (Zofran Inj) 4 mg IVP Q6H PRN PRN Reason: Nausea/Vomiting Last Admin: 07/12/17 09:20 Dose: 4 mg Oxycodone/Acetaminophen (Percocet 5/325 Mg Tab) 1 tab PO Q6H PRN PRN Reason: Pain, moderate (4-7) Stop: 07/15/17 09:11 Last Admin: 07/15/17 08:37 Dose: 1 tab - Labs Labs: 07/15/17 07:36 07/13/17 07:05 PT 12.8 Seconds (9.9-11.8) H 07/05/17 20:10 INR 1.19 (0.93-1.08) H 07/05/17 20:10 APTT 29.7 Seconds (23.7-30.8) 07/05/17 20:10 - Constitutional Appears: Non-toxic, No Acute Distress - Respiratory Exam Respiratory Exam: Clear to Ausculation Bilateral, NORMAL BREATHING PATTERN - Cardiovascular Exam Cardiovascular Exam: REGULAR RHYTHM, +S1, +S2 - GI/Abdominal Exam GI & Abdominal Exam: Soft. 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 Rajinder Calixto, PGY2
[2017-07-15] MEDS ORDERED: Oxycodone/Acetaminophen 5/325 mg Tab PO PRN (10:06)
[2017-07-15] MEDS ORDERED: HYDROmorphone 0.5 mg/0.5 ml ISec IVP PRN (12:36)
--- NOTE | 2017-07-15 14:36 | PN ---
DATE: 07/15/2017 SUBJECTIVE: This 47-year-old female was examined at her bedside. Her case was reviewed in detail with herself and nurse, Diego Greer, registered nurse. The patient is out of bed to chair. She still has not had any bowel movement. She still has passed no flatus and is tolerating liquids. She denies any nausea or vomiting. She denies fever or chills. According to the nursing staff, she has had no parenteral Dilaudid in the past 24 hours. On questioning the patient, she denies cough, hemoptysis, hematemesis or melena. PHYSICAL EXAMINATION: VITAL SIGNS: Temperature is 98.3, respirations 22, pulse 77, blood pressure 141/75 with a pulse ox of 95% on room air. HEENT: Head is normocephalic, atraumatic. Eyes: No icterus. NECK: Supple. HEART: Regular S1 and S2. No pathological rubs, murmurs or gallops. LUNGS: Clear to auscultation. ABDOMEN: Obese, nontender without palpable organomegaly. No rebound, no guarding, no tenderness. Her wound dressing is clean and dry, and she is wearing an abdominal binder. EXTREMITIES: Show no clubbing, no cyanosis, no edema. SKIN: Without rash. NEUROLOGIC: Grossly intact. PSYCHOLOGIC: Alert and oriented x3. LABORATORY DATA: White count 10,900, hemoglobin 10, hematocrit 30, platelets 323,000. Sodium 132, potassium 3.8, chloride 96, bicarb 29, BUN 4, creatinine 0.5, random blood sugar was 92. All liver function testing was normal including bilirubin 0.7, AST 34, ALT 22, alk phos 74. Hepatitis A, B, C serology is negative. Pathology report was reviewed. It shows invasive [id number] differentiated adenocarcinoma, and a 4.5-cm tumor mass which penetrates through the entire bowel wall thickness into pericolic adipose tissue with focal perforation of visceral peritoneum and peritoneal abscess formation. 16 out of 27 lymph nodes were positive for metastatic cancer and her pathology stage was T4 N2. The margins were negative for dysplasia or carcinoma. IMPRESSION: A 47-year-old female, status post left colon resection for adenocarcinoma in a section of previous diverticulitis with stage IIIC colon cancer based on pathology T4 N2 staging with comorbidities of morbid obesity, postoperative anemia, degenerative arthritis, spinal arthritis, and sciatica. PLAN: At present, as discussed with the patient and nursing is to continue D5/0.45 saline at 70 mL/hour. Her Dilaudid will be decreased to 0.5 mg IV q.12 hours p.r.n. severe pain, heparin 5000 units subcu q.12, metoprolol tartrate 12.5 mg p.o. daily, Pepcid 40 mg p.o. at bedtime, Percocet 1 tablet p.o. q.6 hours p.r.n. moderate pain, Tylenol 650 p.o. q.6 hours p.r.n. fever or mild pain, and Zofran 4 mg IV q.6 hours p.r.n. nausea and vomiting. The patient did perform incentive spirometry for me. She has an order for clear liquid diet. She is wearing antiembolism stockings during the day to be removed at bedtime, has been encouraged to ambulate with assistance. The plan will be to monitor the patient for bowel movements and to advance the diet accordingly. The patient will need oncology referral for possible outpatient chemotherapy based on her tumor status. All of the above was discussed in detail with the patient, nursing, and co-consultants. Greater than fifty minutes was spent in the care, management, and counseling of this patient today. All questions were answered. Karol Banks MD MTDD
[2017-07-16] MEDS: Oxycodone/Acetaminophen 5/325 mg Tab PO PRN ×3 (02:16→18:12)
[2017-07-16] MEDS: Dextrose 5%/0.9% NS 1,000 ML IV SCH ×2 (08:20→23:22)
--- NOTE | 2017-07-16 09:34 | CP.PCM.PN ---
Subjective - Date & Time of Evaluation Date of Evaluation: 07/16/17 Time of Evaluation: 09:28 - Subjective Subjective: Surgery progress note for Dr. Calvillo Patient seen and examined at bedside. Patient sitting in recliner at bedside and doing well with no new complaints at this time. No acute events overnight. Patient complaining of bloating and says she feels like she needs to pass gas but she cannot. Patient has not had a BM yet either. She is tolerating her liquid diet. She is still having some mild abdominal pain around the incision site but says it is well controlled with pain meds and she says the abdominal binder helps. Patient says she has been using her incentive spirometer. Patient denies fever, chills, N/V/D, CP, SOB. Objective - Vital Signs/Intake and Output Vital Signs (last 24 hours): Temp Pulse Resp BP Pulse Ox 98 F 82 20 147/88 98 07/16/17 08:00 07/16/17 08:00 07/16/17 08:00 07/16/17 08:00 07/16/17 08:00 Intake and Output: 07/16/17 07/16/17 06:59 18:59 Intake Total 2700 Output Total 1700 Balance 1000 - Medications Medications: Current Medications Acetaminophen (Tylenol 325mg Tab) 650 mg PO Q6H [facility] Last Admin: 07/16/17 05:14 Dose: Not Given Docusate Sodium (Colace) 100 mg PO DAILY [facility] Last Admin: 07/15/17 10:54 Dose: 100 mg Famotidine (Pepcid) 40 mg PO HS [facility] Last Admin: 07/15/17 23:12 Dose: 40 mg Heparin Sodium (Porcine) (Heparin) 5,000 units SC Q12 [facility] PRN Reason: Protocol Last Admin: 07/15/17 23:12 Dose: 5,000 units Hydromorphone HCl (Dilaudid) 0.5 mg IVP Q12H PRN PRN Reason: Pain, severe (8-10) Dextrose/Sodium Chloride (Dextrose 5%/0.9% Ns 1000 Ml) 1,000 mls @ 70 mls/hr IV .[id number] [facility] Last Admin: 07/15/17 15:33 Dose: 70 mls/hr Ketorolac Tromethamine (Toradol) 30 mg IVP Q6 PRN PRN Reason: Pain, moderate (4-7) Metoprolol Tartrate (Lopressor) 12.5 mg PO DAILY [facility] Last Admin: 07/15/17 10:53 Dose: 12.5 mg Ondansetron HCl (Zofran Inj) 4 mg IVP Q6H PRN PRN Reason: Nausea/Vomiting Last Admin: 07/12/17 09:20 Dose: 4 mg Oxycodone/Acetaminophen (Percocet 5/325 Mg Tab) 1 tab PO Q6H PRN PRN Reason: Pain, moderate (4-7) Stop: 07/18/17 10:07 Last Admin: 07/16/17 02:16 Dose: 1 tab - Labs Labs: 07/15/17 07:36 07/13/17 07:05 PT 12.8 Seconds (9.9-11.8) H 07/05/17 20:10 INR 1.19 (0.93-1.08) H 07/05/17 20:10 APTT 29.7 Seconds (23.7-30.8) 07/05/17 20:10 - Constitutional Appears: Non-toxic, No Acute Distress - Head Exam Head Exam: NORMAL INSPECTION - Eye Exam Eye Exam: EOMI - ENT Exam ENT Exam: Mucous Membranes Moist - Respiratory Exam Respiratory Exam: NORMAL BREATHING PATTERN. absent: Accessory Muscle Use, Respiratory Distress - Cardiovascular Exam Cardiovascular Exam: REGULAR RHYTHM. absent: Bradycardia, Tachycardia - GI/Abdominal Exam GI & Abdominal Exam: Soft, Tenderness (Appropriate post op tenderness around incision site ). absent: Distended Additional comments: Midline incision clean, dry, and intact with misa in place. Bandage changed over distal portion of incision. - Extremities Exam Extremities Exam: absent: Calf Tenderness - Neurological Exam Neurological Exam: Alert, Awake - Psychiatric Exam Psychiatric exam: Normal Affect, Normal Mood - Skin Skin Exam: Dry, Normal Color, Warm Assessment and Plan - Assessment and Plan (Free Text) Assessment: 47F s/p partial left hemicolectomy with primary anastamosis POD#5 Colon Path: T4N2 adenocarcinoma 4.5cm with lymphovascular invasion and involvement of pericolonic adipose tissue Plan: - analgesics - full liquid diet - encouraged ambulation and use of incentive spirometer - colace for constipation - Consulted heme/onc (Dr. Anthony) - recs appreciated - further recs per Dr. Rajinder Barrientos, PGY1
--- NOTE | 2017-07-16 14:17 | PN ---
DATE: 07/16/2017 SUBJECTIVE: This 47-year-old female was examined at her bedside. Her case was reviewed in detail with her registered nurse, Olga Crawley. The patient is out of bed to chair. She still has had no flatus or bowel movement, but is tolerating clear liquids with no episodes of nausea or vomiting. The patient denied any fever or chills. She is awaiting the oncological evaluation by Dr. Fawad Anthony for colon cancer, stage 3C on pathology reporting. On further questioning with the patient, she denies any hematemesis or melena and is ambulating with assistance and is wearing antiembolism stockings. OBJECTIVE: VITAL SIGNS: On physical exam; her temperature is 98, respirations 20, pulse 82, blood pressure 147/88, pulse ox 98% on room air. Respiratory rate 20 and regular. HEAD: Normocephalic, atraumatic. EYES: No icterus. NECK: Supple. HEART: Regular S1, S2. No pathological rubs, murmurs or gallops. LUNGS: Clear to auscultation. ABDOMEN: Obese, nontender without palpable organomegaly. There is no rebound, no guarding or tenderness. She is wearing an abdominal binder. Her wound dressing is clean and dry. EXTREMITIES: No clubbing, no cyanosis, no edema. SKIN: Without rash. NEUROLOGIC: Grossly intact. PSYCHOLOGIC: Alert and oriented x3. LABORATORY DATA: Hemoglobin 10.0, hematocrit 30.0. Sodium 132, K 3.8, chloride 96, bicarb 29, BUN 4, creatinine 0.5, random blood sugar is 92. All liver function testing was normal including bilirubin 0.7, AST 34, ALT 22 and alk phos 74. Hepatitis A, B, C panels are negative. IMPRESSION: This a 47-year-old female with adenocarcinoma of the colon, stage 3C with comorbidities of morbid obesity, postoperative anemia and history of spinal arthritis and sciatica. PLAN: The plan at present is to continue Colace 100 mg daily. We will be encouraging the patient to drink prune juice to have improvement in her bowel movement. She will continue on D5 0.9 at 70 mL/hour. Her Dilaudid has been decreased to 0.5 mg IV q. 12 hours p.r.n. severe pain and it should be noted that the patient states she has had no parenteral analgesia in the past 24 hours. She continues on heparin 5000 units subcutaneous q. 12, metoprolol tartrate 12.5 mg p.o. daily, Pepcid 40 mg p.o. at bedtime, Percocet 1 tablet p.o. q. 6 hours p.r.n. moderate pain and Zofran 4 mg IV q. 6 hours p.r.n. nausea and vomiting. The patient is performing incentive spirometry q. 1 hour. She is tolerating clear liquids. She is encouraged to ambulate with assistance and we will await the recommendations of Dr. Fawad Anthony, from Hematology/Oncology. Ultimate plan is for discharge to home when medically stable. All of the above was discussed in detail with the patient, nursing and surgical co-consultants. I did discuss this case today with Dr. Calvillo from surgery. Greater than fifty minutes was spent in the care management and counseling of this patient today. All questions were answered. Karol Banks MD MTDD
--- NOTE | 2017-07-16 19:48 | PN ---
DATE: 07/16/2017 SUBJECTIVE: This patient was seen and evaluated earlier today. Discussed with the patient at length this morning. The patient does have colon cancer with node metastasis. The patient mentioned to me she has already been explained about it by Dr. Calvillo before, awaiting for an oncological evaluation at that time. The patient has not had any bowel movements yet. PHYSICAL EXAMINATION VITAL SIGNS: Temperature is afebrile, blood pressure 147/88, respirations 20, O2 saturation is 98% room air. HEENT: Atraumatic, anicteric. NECK: Supple. HEART: S1 and S2. LUNGS: Bilateral air entry present. ABDOMEN: Soft. Surgical dressing present. EXTREMITIES: No cyanosis. No clubbing. NEUROLOGICAL: Alert and oriented. Moves all the extremities. LABORATORY DATA: No labs today. IMPRESSION AND PLAN: This 47-year-old patient with colon carcinoma node positive. The patient is on liquid diet, on Colace. The patient has been followed by surgery. Oncology will consult with Dr Anthony has been requested. Follow up with the electrolytes. The previous CT with contrast done before was reviewed and no liver lesions noticed. I will request for CEA levels and followup. Thank you very much for allowing us to participate in the care of the patient. Jessica Jimenez MD MTDD
[2017-07-17 02:06] VITALS: RESP 20
[2017-07-17 07:00] LABS: HEMATOCRIT 30.5 % (36.0-48.0); MEAN CELL VOLUME 89.2 fl (80.0-105.0); MEAN CORPUSCULAR HEMOGLOBIN 28.7 pg (25.0-35.0); MEAN CORPUSCULAR HGB CONC 32.1 g/dl (31.0-37.0); MEAN PLATELET VOLUME 8.7 fl (7.0-11.0); RED CELL DISTRIBUTION WIDTH 13.4 % (11.5-14.5); WHITE BLOOD COUNT 8.3 10^3/ul (4.5-11.0)
[2017-07-17 07:14] LABS: ALB/GLOB RATIO 0.8 (1.1-1.8); ALKALINE PHOSPHATASE 128 U/L (38-126); ALT/SGPT 21 U/L (7-56); AST/SGOT 25 U/L (14-36); BILIRUBIN,TOTAL 0.5 mg/dL (0.2-1.3); BLOOD UREA NITROGEN 2 mg/dL (7-21); CALCIUM 8.3 mg/dL (8.4-10.5); CARBON DIOXIDE 31 mmol/L (21-33); CHLORIDE 100 mmol/L (98-107); GFR AFRICAN-AMERICAN > 60; GLUCOSE,RANDOM 102 mg/dL (70-110); POTASSIUM 3.2 mmol/L (3.6-5.0); SODIUM 138 mmol/L (132-148); TOTAL PROTEIN 6.4 g/dL (5.8-8.3)
[2017-07-17] MEDS ORDERED: Potassium Chloride 20 mEq ER Tab PO ONE ×2 (09:09→16:00)
--- NOTE | 2017-07-17 09:14 | CP.PCM.PN ---
Subjective - Date & Time of Evaluation Date of Evaluation: 07/17/17 Time of Evaluation: 07:00 - Subjective Subjective: Surgery note for Dr. Calvillo 47F seen and examined at bedside. Patient states pain is well controlled. Denies nausea, vomiting, admits to flatus. Objective - Vital Signs/Intake and Output Vital Signs (last 24 hours): Temp Pulse Resp BP Pulse Ox 99.2 F 91 H 20 159/94 H 96 07/17/17 07:46 07/17/17 07:46 07/17/17 07:46 07/17/17 07:46 07/17/17 07:46 Intake and Output: 07/17/17 07/17/17 06:59 18:59 Intake Total 600 Output Total 2100 Balance -1500 - Medications Medications: Current Medications Acetaminophen (Tylenol 325mg Tab) 650 mg PO Q6H [facility] Last Admin: 07/17/17 01:27 Dose: Not Given Docusate Sodium (Colace) 100 mg PO DAILY [facility] Last Admin: 07/16/17 10:06 Dose: 100 mg Famotidine (Pepcid) 40 mg PO HS [facility] Last Admin: 07/16/17 21:57 Dose: 40 mg Heparin Sodium (Porcine) (Heparin) 5,000 units SC Q12 [facility] PRN Reason: Protocol Last Admin: 07/16/17 21:57 Dose: 5,000 units Hydromorphone HCl (Dilaudid) 0.5 mg IVP Q12H PRN PRN Reason: Pain, severe (8-10) Dextrose/Sodium Chloride (Dextrose 5%/0.9% Ns 1000 Ml) 1,000 mls @ 70 mls/hr IV .[id number] [facility] Last Admin: 07/16/17 23:22 Dose: 70 mls/hr Ketorolac Tromethamine (Toradol) 30 mg IVP Q6 PRN PRN Reason: Pain, moderate (4-7) Metoprolol Tartrate (Lopressor) 12.5 mg PO DAILY [facility] Last Admin: 07/16/17 10:09 Dose: 12.5 mg Ondansetron HCl (Zofran Inj) 4 mg IVP Q6H PRN PRN Reason: Nausea/Vomiting Last Admin: 07/12/17 09:20 Dose: 4 mg Oxycodone/Acetaminophen (Percocet 5/325 Mg Tab) 1 tab PO Q6H PRN PRN Reason: Pain, moderate (4-7) Stop: 07/18/17 10:07 Last Admin: 07/16/17 18:12 Dose: 1 tab Potassium Chloride (K-Dur 20 Meq Er Tab) 40 meq PO ONCE ONE Stop: 07/17/17 09:10 - Labs Labs: 07/17/17 06:00 07/17/17 06:00 PT 12.8 Seconds (9.9-11.8) H 07/05/17 20:10 INR 1.19 (0.93-1.08) H 07/05/17 20:10 APTT 29.7 Seconds (23.7-30.8) 07/05/17 20:10 - Constitutional Appears: Non-toxic, No Acute Distress - Respiratory Exam Respiratory Exam: Clear to Ausculation Bilateral, NORMAL BREATHING PATTERN - Cardiovascular Exam Cardiovascular Exam: REGULAR RHYTHM, +S1, +S2 - GI/Abdominal Exam GI & Abdominal Exam: Soft. absent: Distended, Firm, Guarding, Rigid, Tenderness , Rebound Additional comments: incisions clean dry intact - Neurological Exam Neurological Exam: Alert, Awake - Skin Skin Exam: Dry, Intact, Normal Color, Warm Assessment and Plan - Assessment and Plan (Free Text) Assessment: 47F s/p partial left hemicolectomy with primary anastamosis POD#6 Colon Path: T4N2 adenocarcinoma 4.5cm with lymphovascular invasion and involvement of pericolonic adipose tissue Plan: - encouraged ambulation and use of incentive spirometer - stool softening for constipation - Consulted Heme/Onc (Dr. nAthony) - recs appreciated Further recs per Dr. Rajinder Calixto, PGY2
[2017-07-17] MEDS: Dextrose 5%/0.9% NS 1,000 ML IV SCH (10:56)
[2017-07-17] MEDS ORDERED: Nitroglycerin 2% Ointment Foilpak UD TOP PRN (15:40)
--- NOTE | 2017-07-17 16:09 | PN ---
DATE: 07/17/2017 SUBJECTIVE: This 47-year-old female was examined at her bedside. Her case was reviewed in detail with her nurse, Olga Crawley, registered nurse. The patient continues to improve slowly. Presently, she is passing flatus and brown stool fragments. She denies any fever, chills, chest pain or shortness of breath and she also denies hematemesis or melena. The patient is tolerating clear liquid diet. She states she required no parenteral analgesia yesterday and is agreeable to the discontinuation of parenteral Dilaudid. She has not been seen by Dr. Fawad Anthony from oncology at present and is cooperating with the nursing staff and physical therapy. She did complain of newly noted lower extremity swelling without pain or erythema. Her IV fluids were stopped accordingly. OBJECTIVE: VITAL SIGNS: On physical exam, temperature is 98.6, respirations 20, pulse 87 and blood pressure 131/78 with a pulse ox of 97% on room air. HEENT: Head is normocephalic and atraumatic. Eyes: No icterus. Ears: Clear. Throat: Noninjected. NECK: Supple. HEART: Regular S1 and S2. No pathological rubs, murmurs or gallops. LUNGS: Clear to auscultation. ABDOMEN: Obese, nontender. No palpable organomegaly. No rebound. No guarding. No tenderness. Her wound dressing is clean and dry. EXTREMITIES: Show no clubbing, cyanosis or edema. Her skin is without rash. NEUROLOGICAL: Intact. PSYCHOLOGICAL: Alert. VASCULAR: Legs are warm to touch. Minimal bilateral lower extremity swelling without erythema, no warmth, negative Vania's sign. LABORATORY DATA: White count 8300; hemoglobin 9.8; hematocrit 30.5; platelets rate of 359,000. Sodium 138, K 3.2, chloride 100, bicarb 31, BUN 2, creatinine 0.4, random blood sugar is 102. Bilirubin 0.5, AST 25, ALT 21, alk phos 128. CEA antigen was elevated at 24 with normal being less than 3. IMPRESSION: This is a 47-year-old female, status post left colon resection and re-anastomosis for stage IIIC adenocarcinoma on pathology report with 16 out of 27 nodes positive for metastatic cancer. Also with postop anemia, hypokalemia, gastritis, obstipation, deconditioning, arthritis, sciatica and morbid obesity. PLAN: At present is to replace the patient with oral potassium. She received a dose of 40 mEq earlier today and I have ordered an additional dose at 4:00 p.m. today. She continues on Colace 100 mg p.o. daily. Her IV fluids will be discontinued since she is adequately drinking. She will have Dilaudid discontinued. She continues on heparin 5000 units subQ q. 12, metoprolol tartrate 12.5 mg p.o. daily, Pepcid 40 mg p.o. at bedtime, Percocet 1 p.o. q. 6 hours p.r.n. moderate pain, Tylenol 650 p.o. q. 6 hours p.r.n. mild pain and Zofran 4 mg IV q. 6 hours p.r.n. nausea and vomiting. She was able to perform incentive spirometry. Her diet has now been advanced by surgery to heart healthy, soft, bland. I have ordered bilateral venous dopplers of her lower extremities to rule out DVT. She continues with physical therapy for ambulation and staircase safety and her ultimate plan will be for discharge to home when medically stable. All of the above was reviewed in detail with the patient and her nurse. I have discussed this case with Dr. Calvillo from surgery. Greater than fifty minutes was spent in the care, counseling and management of this patient today. Overall prognosis remains stable. All questions were answered. Karol Banks MD MTDD
--- NOTE | 2017-07-17 19:17 | PN ---
DATE: 07/17/2017 SUBJECTIVE: This patient was seen and evaluated earlier today. Discussed with nursing staff. The patient is ambulating. The patient did have some small bowel movements. Started on liquid and solid food. PHYSICAL EXAMINATION: VITAL SIGNS: Temperature is 98.6, pulse 87, and blood pressure 131/78. HEENT: Atraumatic. Anicteric. NECK: Supple. HEART: S1 and S2 heard. LUNGS: Bilateral air entry present. ABDOMEN: Soft. Mild tenderness over the surgical area. EXTREMITIES: Bilateral pitting pedal edema present. NEUROLOGICAL: Alert, oriented. Moves all the extremities. LABORATORY DATA: Hemoglobin 9.8, hematocrit 30.5, WBC is 8.3, and platelets 359. BUN 12 and creatinine 0.4. CEA is elevated to 24.0. IMPRESSION: This is 43-year-old patient had a status post left colon cancer resection done, history of diverticulitis, pathology suggestive of adenocarcinoma, colon staging is T4N2 . The patient is due to have see Dr. Fawad Anthony for oncology evaluation. Continue the postoperative care as per the Surgery. Thank you very much for allowing us to participate in the care of the patient. Jessica Jimenez MD MTDD
[2017-07-18 08:08] VITALS: TEMP 98.5
--- NOTE | 2017-07-18 09:13 | CP.PCM.PN ---
<Mauricio Coker - Last Filed: 07/18/17 09:14> Subjective - Date & Time of Evaluation Date of Evaluation: 07/18/17 Time of Evaluation: 06:55 - Subjective Subjective: General Surgery Progress Note for Dr. Calvillo Patient seen and examined at bedside. No acute event overnight. Patient lying in bed comfortably. Patient states pain is well controlled with meds. Patient is ambulating without difficulty, tolerating diet and passing flatus. She has no complaints today. Objective - Vital Signs/Intake and Output Vital Signs (last 24 hours): Temp Pulse Resp BP Pulse Ox 98.5 F 89 20 160/89 H 96 07/18/17 08:00 07/18/17 08:00 07/18/17 08:00 07/18/17 08:00 07/18/17 08:00 Intake and Output: 07/18/17 07/18/17 06:59 18:59 Intake Total 720 Output Total 2375 Balance -1655 - Medications Medications: Current Medications Acetaminophen (Tylenol 325mg Tab) 650 mg PO Q6H [facility] Last Admin: 07/17/17 19:22 Dose: Not Given Docusate Sodium (Colace) 100 mg PO DAILY [facility] Last Admin: 07/17/17 10:54 Dose: 100 mg Famotidine (Pepcid) 40 mg PO HS [facility] Last Admin: 07/17/17 21:52 Dose: 40 mg Heparin Sodium (Porcine) (Heparin) 5,000 units SC Q12 [facility] PRN Reason: Protocol Last Admin: 07/17/17 21:52 Dose: 5,000 units Metoprolol Tartrate (Lopressor) 12.5 mg PO DAILY [facility] Last Admin: 07/17/17 10:52 Dose: 12.5 mg Nitroglycerin (Nitro-Bid 2% Oint) 1 ea TOP Q4H PRN PRN Reason: accelerated hypertension Ondansetron HCl (Zofran Inj) 4 mg IVP Q6H PRN PRN Reason: Nausea/Vomiting Last Admin: 07/17/17 20:07 Dose: 4 mg Oxycodone/Acetaminophen (Percocet 5/325 Mg Tab) 1 tab PO Q6H PRN PRN Reason: Pain, moderate (4-7) Stop: 07/18/17 10:07 Last Admin: 07/16/17 18:12 Dose: 1 tab - Labs Labs: 07/17/17 06:00 07/18/17 08:20 PT 12.8 Seconds (9.9-11.8) H 07/05/17 20:10 INR 1.19 (0.93-1.08) H 07/05/17 20:10 APTT 29.7 Seconds (23.7-30.8) 07/05/17 20:10 - Constitutional Appears: Non-toxic, No Acute Distress - Head Exam Head Exam: ATRAUMATIC, NORMOCEPHALIC - Eye Exam Eye Exam: Normal appearance - ENT Exam ENT Exam: Mucous Membranes Moist - Respiratory Exam Respiratory Exam: NORMAL BREATHING PATTERN - Cardiovascular Exam Cardiovascular Exam: REGULAR RHYTHM - GI/Abdominal Exam GI & Abdominal Exam: Soft. absent: Distended, Firm, Guarding, Rigid, Tenderness , Rebound Additional comments: midline incision site is clean, dry, intact - Extremities Exam Extremities Exam: Normal Capillary Refill - Neurological Exam Neurological Exam: Alert, Awake, Oriented x3 - Psychiatric Exam Psychiatric exam: Normal Affect, Normal Mood - Skin Skin Exam: Dry, Intact, Normal Color, Warm Assessment and Plan - Assessment and Plan (Free Text) Plan: 47F s/p partial left hemicolectomy with primary anastamosis POD#7 Pathology: T4N2 adenocarcinoma 4.5cm with lymphovascular invasion and involvement of pericolonic adipose tissue - Ambulation and Incentive spirometery - Stool softners - f/u Heme/Onc recommendations, Dr. Anthony, help appreciated - Clear for discharge from surgical standpoint - Will DW Dr. Rajinder Coker PGY1 <Robyn Dumont - Last Filed: 07/18/17 18:41> Objective - Vital Signs/Intake and Output Vital Signs (last 24 hours): Temp Pulse Resp BP Pulse Ox 98.5 F 89 20 160/89 H 96 07/18/17 16:00 07/18/17 16:00 07/18/17 16:00 07/18/17 16:00 07/18/17 16:00 Intake and Output: 07/18/17 07/18/17 06:59 18:59 Intake Total 720 260 Output Total 2375 Balance -1655 260 - Medications Medications: Current Medications Docusate Sodium (Colace) 100 mg PO DAILY [facility] Last Admin: 07/18/17 10:35 Dose: 100 mg Famotidine (Pepcid) 40 mg PO HS [facility] Last Admin: 07/17/17 21:52 Dose: 40 mg Heparin Sodium (Porcine) (Heparin) 5,000 units SC Q12 [facility] PRN Reason: Protocol Last Admin: 07/18/17 10:25 Dose: 5,000 units Metoprolol Tartrate (Lopressor) 12.5 mg PO DAILY [facility] Last Admin: 07/18/17 10:39 Dose: 12.5 mg Nitroglycerin (Nitro-Bid 2% Oint) 1 ea TOP Q4H PRN PRN Reason: accelerated hypertension Ondansetron HCl (Zofran Inj) 4 mg IVP Q6H PRN PRN Reason: Nausea/Vomiting Last Admin: 07/17/17 20:07 Dose: 4 mg Oxycodone/Acetaminophen (Percocet 5/325 Mg Tab) 2 tab PO Q4H PRN PRN Reason: Pain, moderate (4-7) Stop: 07/21/17 14:42 - Labs Labs: 07/17/17 06:00 07/18/17 08:20 PT 12.8 Seconds (9.9-11.8) H 07/05/17 20:10 INR 1.19 (0.93-1.08) H 07/05/17 20:10 APTT 29.7 Seconds (23.7-30.8) 07/05/17 20:10 Assessment and Plan - Assessment and Plan (Free Text) Plan: Pt may follow up at Dr. Anthony's office outpatient basis. NANCY Calvillo.
[2017-07-18] MEDS ORDERED: Potassium Chloride 20 mEq ER Tab PO ONE ×3 (09:16→16:00)
--- NOTE | 2017-07-18 12:01 | CP.PCM.PN ---
<Renuka Nevarez - Last Filed: 07/18/17 12:00> Subjective - Date & Time of Evaluation Date of Evaluation: 07/18/17 Time of Evaluation: 09:15 - Subjective Subjective: Seen and examined at the bedside earlier this morning, the chart was reviewed. No acute overnight events reported. Patient reports positive bowel movement, no reports of overt GI bleed. Tolerating oral intake. Denies nausea, vomiting , or acute abdominal pain. Objective - Vital Signs/Intake and Output Vital Signs (last 24 hours): Temp Pulse Resp BP Pulse Ox 98.5 F 83 20 156/86 H 96 07/18/17 08:00 07/18/17 10:39 07/18/17 08:00 07/18/17 10:39 07/18/17 08:00 Intake and Output: 07/18/17 07/18/17 06:59 18:59 Intake Total 720 260 Output Total 2375 Balance -1655 260 - Medications Medications: Current Medications Acetaminophen (Tylenol 325mg Tab) 650 mg PO Q6H [facility] Last Admin: 07/17/17 19:22 Dose: Not Given Docusate Sodium (Colace) 100 mg PO DAILY [facility] Last Admin: 07/18/17 10:35 Dose: 100 mg Famotidine (Pepcid) 40 mg PO HS [facility] Last Admin: 07/17/17 21:52 Dose: 40 mg Heparin Sodium (Porcine) (Heparin) 5,000 units SC Q12 [facility] PRN Reason: Protocol Last Admin: 07/18/17 10:25 Dose: 5,000 units Metoprolol Tartrate (Lopressor) 12.5 mg PO DAILY [facility] Last Admin: 07/18/17 10:39 Dose: 12.5 mg Nitroglycerin (Nitro-Bid 2% Oint) 1 ea TOP Q4H PRN PRN Reason: accelerated hypertension Ondansetron HCl (Zofran Inj) 4 mg IVP Q6H PRN PRN Reason: Nausea/Vomiting Last Admin: 07/17/17 20:07 Dose: 4 mg - Labs Labs: 07/17/17 06:00 07/18/17 08:20 PT 12.8 Seconds (9.9-11.8) H 07/05/17 20:10 INR 1.19 (0.93-1.08) H 07/05/17 20:10 APTT 29.7 Seconds (23.7-30.8) 07/05/17 20:10 - Constitutional Appears: No Acute Distress - Head Exam Head Exam: NORMOCEPHALIC - Eye Exam Eye Exam: Normal appearance. absent: Scleral icterus - ENT Exam ENT Exam: Mucous Membranes Moist - Neck Exam Neck Exam: Normal Inspection - Respiratory Exam Respiratory Exam: Clear to Ausculation Bilateral, NORMAL BREATHING PATTERN. absent: Respiratory Distress - Cardiovascular Exam Cardiovascular Exam: +S1, +S2 - GI/Abdominal Exam GI & Abdominal Exam: Soft, Normal Bowel Sounds. absent: Guarding, Rebound Additional comments: mid line surgical incision dry and intact, patient also has abdominal binder on. - Extremities Exam Extremities Exam: Normal Capillary Refill, Pedal Edema. absent: Calf Tenderness - Neurological Exam Neurological Exam: Alert, Awake, Oriented x3 - Skin Skin Exam: Dry, Warm Assessment and Plan - Assessment and Plan (Free Text) Assessment: Assessment: Status post GI laparotomy with Left partial colectomy, surgical colon pathology report adenocarcinoma Rectal Colon Polyps, biopsy negative for malignanacy s/p Diverticulitis Hypertension Obesity Plan: FU LE doppler Heart healthy diet on Heparin SQ Continue GI prophylaxis Off antibiotics continue w/surgical FU Oncology evaluation Seen and discussed s/ Dr. Jimenez. <Jessica Jimenez V - Last Filed: 07/18/17 18:59> Objective - Vital Signs/Intake and Output Vital Signs (last 24 hours): Temp Pulse Resp BP Pulse Ox 98.5 F 89 20 160/89 H 96 07/18/17 16:00 07/18/17 16:00 07/18/17 16:00 07/18/17 16:00 07/18/17 16:00 Intake and Output: 07/18/17 07/18/17 06:59 18:59 Intake Total 720 260 Output Total 2375 Balance -1655 260 - Medications Medications: Current Medications Docusate Sodium (Colace) 100 mg PO DAILY [facility] Last Admin: 07/18/17 10:35 Dose: 100 mg Famotidine (Pepcid) 40 mg PO HS [facility] Last Admin: 07/17/17 21:52 Dose: 40 mg Heparin Sodium (Porcine) (Heparin) 5,000 units SC Q12 [facility] PRN Reason: Protocol Last Admin: 07/18/17 10:25 Dose: 5,000 units Metoprolol Tartrate (Lopressor) 12.5 mg PO DAILY [facility] Last Admin: 07/18/17 10:39 Dose: 12.5 mg Nitroglycerin (Nitro-Bid 2% Oint) 1 ea TOP Q4H PRN PRN Reason: accelerated hypertension Ondansetron HCl (Zofran Inj) 4 mg IVP Q6H PRN PRN Reason: Nausea/Vomiting Last Admin: 07/17/17 20:07 Dose: 4 mg Oxycodone/Acetaminophen (Percocet 5/325 Mg Tab) 2 tab PO Q4H PRN PRN Reason: Pain, moderate (4-7) Stop: 07/21/17 14:42 - Labs Labs: 07/17/17 06:00 07/18/17 08:20 PT 12.8 Seconds (9.9-11.8) H 07/05/17 20:10 INR 1.19 (0.93-1.08) H 07/05/17 20:10 APTT 29.7 Seconds (23.7-30.8) 07/05/17 20:10 Attending/Attestation - Attestation I have personally seen and examined this patient.: Yes I have fully participated in the care of the patient.: Yes I have reviewed all pertinent clinical information, including history, physical exam and plan: Yes Notes (Text): This is an addendum to GI progress report dictated by Renuka Nevarez APN.The patient was seen and examined earlier. Medical records, lab studies, imagings were reviewed. Last 24 hours events reviewed. Agreed with the above treatment plan as outlined in Renuka Nevarez APN's notes the with the addition of the following patient is moving her bowels, tolerating diet Doppler negative for DVT Continue surgical follow-up Patient will need elective colonoscopy to evaluate the rest of the colon. Oncology follow-up 07/18/17 18:58
[2017-07-18] MEDS ORDERED: Potassium Chloride 20 mEq/15 ml LIQ UD PO STA (12:58)
[2017-07-18] MEDS ORDERED: Oxycodone/Acetaminophen 5/325 mg Tab PO PRN (14:41)
--- NOTE | 2017-07-18 14:42 | PN ---
DATE: 07/18/2017 SUBJECTIVE: This 47-year-old female was examined at her bedside. Her case was reviewed with herself, her family at the bedside and her nurse, Rosa Caldwell, registered nurse. The patient is out of bed to chair. She is complaining of bilateral lower extremity swelling. Because of this finding, I had ordered a venous Doppler of both lower extremities to rule out deep venous thrombosis despite the fact that the patient has been out of bed to chair, ambulating and on subcutaneous heparin perioperatively. The patient admits to weakness and fatigue; however, she is now moving her bowels and having flatus. Her diet has been advanced to soft bland. She denies chest pain or shortness of breath and her blood pressure has been elevated as well. It should be noted, I have held for IV fluids since yesterday. PHYSICAL EXAMINATION: VITAL SIGNS: Temperature is 98.5, respirations 20, pulse 83, blood pressure 156/86 with a pulse ox of 96% on room air. HEAD: Normocephalic, atraumatic. EYES: No icterus. EARS: Clear. THROAT: Noninjected. NECK: Supple. HEART: Regular S1, S2. No pathological rubs, murmurs or gallops. LUNGS: Clear to auscultation. ABDOMEN: Obese, nontender without palpable organomegaly. There is no rebound, no guarding. No tenderness. Her wound dressing is clean and dry and intact. EXTREMITIES: Show trace edema bilaterally. There was no Homans' sign. VASCULAR: Legs warm to touch. PSYCHOLOGICAL: Alert and oriented x3. NEUROLOGIC: Grossly intact. LABORATORY DATA: White count 8300, hemoglobin 9.8, hematocrit 30.5, platelets 359,000. A.m. potassium 3.5, CEA level was elevated at 24. BUN 2, creatinine 0.4. Bilirubin 0.5, AST 25, ALT 21, alk phos 128. Hepatitis A, B, C serology negative. IMPRESSION: This is a 47-year-old female status post left colon surgery, colectomy for stage IIIC colon cancer with 16/27 nodes positive for metastatic cancer, also with comorbidities of morbid obesity, degenerative arthritis, spinal arthritis sciatica, postoperative anemia, postoperative hypokalemia and now with trace edema of both lower extremities probably secondary to perioperative IV fluids, and also history of gastritis and recent diverticulitis. PLAN: The plan at present is to await the results of bilateral lower extremity Doppler studies. I will continue Colace 100 mg p.o. daily, heparin 5000 units subcu q.12. I have asked her nurse to give her 20 mg of Lasix IV stat, one dose of potassium, K-Dur 40 mEq p.o. now and a repeated potassium dose again at 4:00 p.m. She will continue on Pepcid 40 mg p.o. h.s. Her Dilaudid has been discontinued. She has an order for Tylenol 650 p.o. q.6 h. p.r.n. pain. I will stop her Percocet since the patient states her discomfort is minimal at present. She has an order for a nitro paste 1 inch to chest wall q.4 h. p.r.n., accelerated hypertension if her systolic blood pressure should be greater than 160 or her diastolic blood pressure should be greater than 100. She continues on Zofran 4 mg IV q.6 h. p.r.n. nausea, vomiting. She did perform incentive spirometry for me and she is ordered to ambulate with assistance and practice staircase safety. I am awaiting an oncology evaluation from Dr. Fawad Anthony from Hematology/Oncology regarding evaluation for outpatient chemotherapy. As discussed with the patient, if venous Doppler studies are unremarkable and she is ambulatory and cleared by oncology, we will aim for discharge tomorrow with outpatient followup in my office. All of the above was discussed in detail with the patient. All questions were answered. Greater than thirty five minutes was spent in the care management and counseling of this patient today. I reviewed her CAT scan and pathology reports and discussed them with the patient and family at bedside. Overall prognosis is stable. Karol Banks MD MTDD
--- NOTE | 2017-07-18 16:12 | US ---
HISTORY: Leg pain and swelling. Evaluate for DVT PHYSICIAN(S): Curtis Al MD. TECHNIQUE: Duplex sonography and color-flow Doppler with graded compression were used to evaluate the deep venous systems of both lower extremities. FINDINGS: The visualized deep venous systems of both lower extremities are sonographically normal and compressible. Normal wave forms and augmentation are seen. There is no sonographic evidence for deep venous thrombosis in the visualized segments of both lower extremities. IMPRESSION: No sonographic evidence for deep venous thrombosis in the visualized segments of both lower extremities.
[2017-07-18] MEDS ORDERED: Potassium Chloride 40 mEq/30 ml LIQ UD PO ONE (17:27)
[2017-07-19 08:01] VITALS: O2SAT 94
[2017-07-19 08:15] LABS: IRON 76 ug/dL (45-180)
--- NOTE | 2017-07-19 08:47 | CP.PCM.PN ---
Subjective - Date & Time of Evaluation Date of Evaluation: 07/19/17 Time of Evaluation: 07:00 - Subjective Subjective: General Surgery Progress Note for Dr. Calvillo Patient seen and examined at bedside. No acute event overnight. Patient denies abdominal pain today. She has no complaints today. Objective - Vital Signs/Intake and Output Vital Signs (last 24 hours): Temp Pulse Resp BP Pulse Ox 98.5 F 92 H 20 105/59 L 94 L 07/19/17 07:30 07/19/17 07:30 07/19/17 07:30 07/19/17 07:30 07/19/17 07:30 Intake and Output: 07/19/17 07/19/17 06:59 18:59 Intake Total 660 Output Total 1500 Balance -840 - Medications Medications: Current Medications Docusate Sodium (Colace) 100 mg PO DAILY [facility] Last Admin: 07/18/17 10:35 Dose: 100 mg Famotidine (Pepcid) 40 mg PO HS [facility] Last Admin: 07/18/17 22:25 Dose: 40 mg Heparin Sodium (Porcine) (Heparin) 5,000 units SC Q12 [facility] PRN Reason: Protocol Last Admin: 07/18/17 22:25 Dose: 5,000 units Metoprolol Tartrate (Lopressor) 12.5 mg PO DAILY [facility] Last Admin: 07/18/17 10:39 Dose: 12.5 mg Nitroglycerin (Nitro-Bid 2% Oint) 1 ea TOP Q4H PRN PRN Reason: accelerated hypertension Ondansetron HCl (Zofran Inj) 4 mg IVP Q6H PRN PRN Reason: Nausea/Vomiting Last Admin: 07/17/17 20:07 Dose: 4 mg Oxycodone/Acetaminophen (Percocet 5/325 Mg Tab) 2 tab PO Q4H PRN PRN Reason: Pain, moderate (4-7) Stop: 07/21/17 14:42 Last Admin: 07/18/17 22:25 Dose: 2 tab - Labs Labs: 07/17/17 06:00 07/19/17 06:44 PT 12.8 Seconds (9.9-11.8) H 07/05/17 20:10 INR 1.19 (0.93-1.08) H 07/05/17 20:10 APTT 29.7 Seconds (23.7-30.8) 07/05/17 20:10 Assessment and Plan - Assessment and Plan (Free Text) Plan: 47 F s/p partial left hemicolectomy with primary anastamosis POD#8 Pathology: T4N2 adenocarcinoma 4.5cm with lymphovascular invasion and involvement of pericolonic adipose tissue - f/u Heme/Onc recommendations, Dr. Anthony, help appreciated - Clear for discharge from surgical standpoint - Will NANCY Coker PGY1
[2017-07-19 09:43] VITALS: BP 145/91; PULSE 93
--- NOTE | 2017-07-19 13:08 | CP.PCM.PN ---
Subjective - Date & Time of Evaluation Date of Evaluation: 07/19/17 Time of Evaluation: 10:10 - Subjective Subjective: Seen and examined at the bedside earlier this morning, the chart was reviewed. The patient tolerating oral intake, denies nausea, vomiting, or abdominal pain. Reporting bowel movements, no reports of overt GI bleed. Objective - Vital Signs/Intake and Output Vital Signs (last 24 hours): Temp Pulse Resp BP Pulse Ox 98.5 F 93 H 20 145/91 H 94 L 07/19/17 07:30 07/19/17 09:42 07/19/17 07:30 07/19/17 09:42 07/19/17 07:30 Intake and Output: 07/19/17 07/19/17 06:59 18:59 Intake Total 660 260 Output Total 1500 240 Balance -840 20 - Medications Medications: Current Medications Docusate Sodium (Colace) 100 mg PO DAILY [facility] Last Admin: 07/19/17 09:42 Dose: 100 mg Famotidine (Pepcid) 40 mg PO HS [facility] Last Admin: 07/18/17 22:25 Dose: 40 mg Heparin Sodium (Porcine) (Heparin) 5,000 units SC Q12 [facility] PRN Reason: Protocol Last Admin: 07/19/17 09:42 Dose: 5,000 units Metoprolol Tartrate (Lopressor) 12.5 mg PO DAILY [facility] Last Admin: 07/19/17 09:42 Dose: 12.5 mg Nitroglycerin (Nitro-Bid 2% Oint) 1 ea TOP Q4H PRN PRN Reason: accelerated hypertension Ondansetron HCl (Zofran Inj) 4 mg IVP Q6H PRN PRN Reason: Nausea/Vomiting Last Admin: 07/17/17 20:07 Dose: 4 mg Oxycodone/Acetaminophen (Percocet 5/325 Mg Tab) 2 tab PO Q4H PRN PRN Reason: Pain, moderate (4-7) Stop: 07/21/17 14:42 Last Admin: 07/18/17 22:25 Dose: 2 tab - Labs Labs: 07/17/17 06:00 07/19/17 06:44 PT 12.8 Seconds (9.9-11.8) H 07/05/17 20:10 INR 1.19 (0.93-1.08) H 07/05/17 20:10 APTT 29.7 Seconds (23.7-30.8) 07/05/17 20:10 - Constitutional Appears: No Acute Distress - Head Exam Head Exam: NORMOCEPHALIC - Eye Exam Eye Exam: Normal appearance. absent: Scleral icterus - ENT Exam ENT Exam: Mucous Membranes Moist - Neck Exam Neck Exam: Normal Inspection - Respiratory Exam Respiratory Exam: NORMAL BREATHING PATTERN. absent: Respiratory Distress - Cardiovascular Exam Cardiovascular Exam: +S1, +S2 - GI/Abdominal Exam GI & Abdominal Exam: Soft, Normal Bowel Sounds. absent: Guarding, Tenderness, Rebound Additional comments: midline incision with misa dry and intact. No erythema or drainage noted. - Extremities Exam Extremities Exam: Normal Capillary Refill. absent: Calf Tenderness Additional comments: lower extremity Dopplers are negative for DVT. - Neurological Exam Neurological Exam: Alert, Awake, Oriented x3 Assessment and Plan - Assessment and Plan (Free Text) Assessment: Assessment: Status post GI laparotomy with Left partial colectomy, surgical colon pathology report adenocarcinoma Rectal Colon Polyps, biopsy negative for malignanacy s/p Diverticulitis Hypertension Obesity Plan: Heart healthy diet on Heparin SQ Continue GI prophylaxis continue w/surgical FU discussed with patient that she will need a full colonoscopy at some point, patient also reports that she is following up with oncology as outpatient. Seen and discussed s/ Dr. Jimenez.
--- NOTE | 2017-07-19 20:57 | CON ---
HISTORY OF PRESENT ILLNESS: This is a 47-year-old woman with colon carcinoma. PHYSICAL EXAMINATION: HEENT: Anicteric. NODES: Nonpalpable in axillary, cervical, supraclavicular, or inguinal regions. LUNGS: Clear at present. ABDOMEN: Status post colon resection with stitches still present. EXTREMITIES: No edema. CENTRAL NERVOUS SYSTEM: No focal findings. The patient has colon cancer with a CA level prior to the operation of 24, with a negative CAT scan in terms of distal metastasis, with a 4.5 cm tumor with 16 and 27 positive lymph nodes. I saw her today. She has an appointment to see the surgeon next week and I will see her in two weeks for evaluation. She is aware that she needs chemotherapy. At that time, I will probably do a PET scan, repeat CA level and make a determination whether this is for adjuvant therapy or it is metastatic cancer and we will talk tomorrow. Basically, she will begin chemotherapy with 5-FU infusion. We will also check for MSI mismatch for genetic evaluation. Fawad Anthony MD
--- NOTE | 2017-07-20 22:49 | DS ---
FINAL DIAGNOSES: 1. Colon cancer. 2. Diverticulitis. 3. Postoperative anemia. 4. Postoperative obstipation, resolved. 5. Morbid obesity. 6. Chronic degenerative arthritis. 7. History of sciatica. 8. Hypokalemia, improved. DISPOSITION: Home. CONSULTANTS: 1. Dr. Delta Calvillo, Surgery. 2. Dr. Jessica Jimenez, GI. 3. Dr. Fawad Anthony, Oncology. The patient will follow up in my office in 1 week. She will see Dr. Anthony in his office in [address] Calvillo in his office in 1 week for suture removal. DISCHARGE DIET: Soft bland. DISCHARGE MEDICATIONS: Colace 100 mg p.o. daily p.r.n. and Tylenol 650 p.o. q.6 hours. p.r.n. pain. SUMMARY: This 47-year-old female with recently diagnosed diverticulitis was admitted for persistent left descending colon inflammation, microperforation, and exploratory laparotomy that revealed stage IIIC colon cancer. The patient underwent surgery that showed 16/27 lymph nodes positive for metastatic cancer and a 4.5 cm tumor mass. She was seen in consultation by Dr. Anthony from Oncology, who will be arranging outpatient chemotherapy for this patient through his office. The patient's postoperative course was also complicated by protracted obstipation, anemia, and hypokalemia. At the time of discharge, the patient was fully ambulatory and able to independent ambulation and staircase safety. She was eating a soft bland diet, having bowel movements and off all opioid analgesics. Her discharge vital signs were temperature 98.5, respirations 20, pulse 92, blood pressure 105/59 and pulse ox 94% room air. Labs showed white count 8300, hemoglobin 9.8, hematocrit 30.5, platelets 359,000. Potassium level was 3.9. BUN 2, creatinine 0.4. Bilirubin 0.5, AST 25, ALT 21, alkaline phosphatase 128. Iron 76, TIBC 194, percent saturation 39% and ferritin level 155. Hepatitis A, B, C serology was negative. The patient was advised to take Colace p.r.n., to follow up with co-consultants as listed above and to avoid iron supplementation at this point in time given her stable hemoglobin and hematocrit and recent obstipation. This was advised by Dr. Fawad Anthony from Oncology, who states he will follow her blood counts through his office and make further recommendations. All of the above was discussed in detail with the patient, co-consultants and her nurse, Rosa Caldwell, registered nurse. Greater than forty minutes were spent in the care management and counseling for this patient today, review of her instructions with co-consultants. All questions were answered. Karol Banks MD
== END 2017-07-19 18:14 | disposition home or self-care (01) | DRG 330 ==
LOC: ED 19:36 → ERH 22:48 → 5RSO 07-06 00:52 → 5RNO 07-06 21:23
PROVIDERS: ADMIT Internal Medicine; ATTEND Internal Medicine
PROC: 0DTG0ZZ Resection of Left Large Intestine, Open Approach (ICD-10-PCS; principal; 2017-07-11 07:30)
PROC: 0DBP8ZX Excision of Rectum, Via Natural or Artificial Opening Endoscopic, Diagnostic (ICD-10-PCS; 2017-07-11 07:30)
PROC: 0T788DZ Dilation of Bilateral Ureters with Intraluminal Device, Via Natural or Artificial Opening Endoscopic (ICD-10-PCS; 2017-07-11 07:30)
PROC: 0T9B80Z Drainage of Bladder with Drainage Device, Via Natural or Artificial Opening Endoscopic (ICD-10-PCS; 2017-07-11 07:30)
DX: C18.6 Malignant neoplasm of descending colon (principal); C77.2 Secondary and unspecified malignant neoplasm of intra-abdominal lymph nodes; Z68.43 Body mass index [BMI] 50.0-59.9, adult; K57.20 Diverticulitis of large intestine with perforation and abscess without bleeding; E86.0 Dehydration; K62.1 Rectal polyp; K29.70 Gastritis, unspecified, without bleeding; R62.7 Adult failure to thrive; I10 Essential (primary) hypertension; E87.6 Hypokalemia; M54.30 Sciatica, unspecified side; M19.90 Unspecified osteoarthritis, unspecified site; E66.01 Morbid (severe) obesity due to excess calories; D64.9 Anemia, unspecified; M46.90 Unspecified inflammatory spondylopathy, site unspecified; K59.00 Constipation, unspecified

== ENCOUNTER 2017-08-01 09:38 | Emergency (ER) | payer BC ==
[2017-08-01 09:40] VITALS: BMI 47.4
[2017-08-01 09:56] VITALS: TEMP 98.6
[2017-08-01] MEDS ORDERED: Sodium Chloride 0.9% 1,000 ML IV STA (10:03)
--- NOTE | 2017-08-01 10:38 | ED PDOC ---
Arrival/HPI - General Chief Complaint: Abnormal Skin Integrity Time Seen by Provider: 08/01/17 09:40 Historian: Patient - History of Present Illness Narrative History of Present Illness (Text): 08/01/17 10:28 47yo morbidly obese female with PMHx of diverticulitis present with complaint of generalized weakness and abdominal pain s/p colon resection 10days ago. Admits to nausea. Also reports drainage from her incision site with burning pain to the area. Notes her last BM was 2days ago. Able to eat and drink. Denies vomiting, diarrhea, constipation, fever, chills, urinary symptoms, hematochezia, chest pain, any other complaint. Past Medical History - Provider Review Nursing Documentation Reviewed: Yes - Infectious Disease Hx of Infectious Diseases: None - Tetanus Immunization Tetanus Immunization: Unknown - Reproductive Menopause: No - Cardiac Hx Pacemaker: No - Pulmonary Hx Respiratory Disorders: No - Neurological Hx Neurological Disorder: No - HEENT Hx HEENT Disorder: No - Renal Hx Renal Disorder: No - Endocrine/Metabolic Hx Endocrine Disorders: No - Hematological/Oncological Hx Blood Transfusions: No - Integumentary Hx Dermatological Disorder: No - Musculoskeletal/Rheumatological Hx Arthritis: Yes - Gastrointestinal Hx Constipation: Yes Hx Diverticulitis: Yes - Genitourinary/Gynecological Hx Genitourinary Disorders: No Other/Comment: colon ca - Psychiatric Hx Psychophysiologic Disorder: No Hx Substance Use: No - Surgical History Other/Comment: colon rescetion - Anesthesia Hx Anesthesia Reactions: No Hx Malignant Hyperthermia: No Family/Social History - Physician Review Nursing Documentation Reviewed: Yes Family/Social History: Unknown Family HX Smoking Status: Never Smoked Hx Alcohol Use: No Hx Substance Use: No Allergies/Home Meds Allergies/Adverse Reactions: Allergies No Known Allergies Allergy (Verified 07/05/17 19:58) Home Medications: Home Meds Medication Instructions Recorded Confirmed No Known Home Med 08/01/17 08/01/17 Review of Systems - Physician Review All systems were reviewed & negative as marked: Yes - Review of Systems Constitutional: Normal Eyes: Normal ENT: Normal Respiratory: Normal Cardiovascular: Normal Gastrointestinal: Abdominal Pain, Nausea. absent: Constipation, Diarrhea, Vomiting, Hematochezia, Hematemesis Genitourinary Female: Normal Musculoskeletal: Normal Skin: Normal Neurological: Normal Endocrine: Normal Hemo/Lymphatic: Normal Psychiatric: Normal Physical Exam Vital Signs Reviewed: Yes Vital Signs Temp Pulse Resp BP Pulse Ox 10/23/17 09:55 98.6 F 108 H 20 130/85 99 Temperature: Afebrile Blood Pressure: Normal Pulse: Regular Respiratory Rate: Normal Appearance: Positive for: Well-Appearing, Non-Toxic, Comfortable Pain Distress: None Mental Status: Positive for: Alert and Oriented X 3 - Systems Exam Head: Present: Atraumatic, Normocephalic Pupils: Present: PERRL Extroacular Muscles: Present: EOMI Conjunctiva: Present: Normal Mouth: Present: Moist Mucous Membranes Neck: Present: Normal Range of Motion Respiratory/Chest: Present: Clear to Auscultation, Good Air Exchange. No: Respiratory Distress, Accessory Muscle Use Cardiovascular: Present: Regular Rate and Rhythm, Normal S1, S2. No: Murmurs Abdomen: Present: Tenderness (Around the incision), Normal Bowel Sounds, Other ( soft. misa noted in place with some dehiscence noted on the middle of the incision. No erythema. No purulent discharge noted). No: Distention, Peritoneal Signs, Rebound, Guarding, McBurney's Point Tender, Rovsing's Sign Present Back: Present: Normal Inspection Upper Extremity: Present: Normal Inspection. No: Cyanosis, Edema Lower Extremity: Present: Normal Inspection. No: Edema Neurological: Present: GCS=15, CN II-XII Intact, Speech Normal Skin: Present: Warm, Dry, Normal Color. No: Rashes Psychiatric: Present: Alert, Oriented x 3, Normal Insight, Normal Concentration Medical Decision Making ED Course and Treatment: 08/01/17 11:16 47yo female in ED for abdominal pain and incisional drainage. Abdomen was soft, nondistended, localized pain around the incision with some dehiscence noted. They was no erythema, and no purulent discharge noted. Pt was afebrile and hemodynamically stable in ED. Case was DW the surgical elastic knitter and she was seen by the resident Marla To. She took some of the staple, packed and dressed it. Recommends that pt be Dc home with gauze for wound care and follow up with Dr. Brandt on Tuesday , for remaining misa removal. Lab was reviewed. Result was DW the pt and she was instructed to f/u with Dr. brandt on Tuesday, she already have appointment with him for that day. - Lab Interpretations Lab Results: 08/01/17 10:34 08/01/17 10:34 Lab Results 08/01/17 10:34: PT 14.8 H, INR 1.34 H, APTT 32.1 08/01/17 10:34: Sodium 134, Potassium 4.0, Chloride 96 L, Carbon Dioxide 27, Anion Gap 15, BUN 4 L, Creatinine 0.4 L, Est GFR ( Amer) > 60, Est GFR ( Non-Af Amer) > 60, Random Glucose 118 H, Calcium 9.6, Total Bilirubin 1.0, AST 52 H D, ALT 24, Alkaline Phosphatase 132 H, Total Protein 8.6 H, Albumin 4.0, Globulin 4.7, Albumin/Globulin Ratio 0.9 L 08/01/17 10:34: WBC 8.4, RBC 4.06, Hgb 12.0 D, Hct 35.6 L, MCV 87.7, MCH 29.6, MCHC 33.7, RDW 13.7, Plt Count 601 H, MPV 9.1, Gran % 70.4 H, Lymph % (Auto) 15.6 L, Brantley % (Auto) 13.2 H, Eos % (Auto) 0.6 L, Baso % (Auto) 0.2, Gran # 5.89 , Lymph # 1.3, Brantley # 1.1 H, Eos # 0.1, Baso # 0.02 - Medication Orders Current Medication Orders: Discontinued Medications Sodium Chloride (Sodium Chloride 0.9%) 1,000 mls @ 999 mls/hr IV .Q1H1M STA Stop: 08/01/17 11:03 Last Admin: 08/01/17 10:32 Dose: 999 mls/hr eMAR Start Stop Document 08/01/17 10:32 YP (Rec: 08/01/17 10:41 YP [id number]) Intravenous Solution Start Date 08/01/17 Start Time 10:32 End Date 08/01/17 End time 11:32 Total Infusion Time 60 Disposition/Present on Arrival - Present on Arrival Any Indicators Present on Arrival: No History of DVT/PE: No History of Uncontrolled Diabetes: No Urinary Catheter: No History of Decub. Ulcer: No History Surgical Site Infection Following: None - Disposition Have Diagnosis and Disposition been Completed?: Yes Diagnosis: Abdominal pain, Visit for wound check Disposition: HOME/ ROUTINE Disposition Time: 11:25 Patient Plan: Discharge Condition: STABLE Discharge Instructions (ExitCare): Acute Wound Care (ED), Abdominal Pain (ED) Additional Instructions: Follow up with Dr. Brandt on Tuesday Keep wound clean and dry Return to ED for any new or worsening symptoms Referrals: Delta Brandt MD [Staff Provider] - Follow up with primary Forms: [employer] (Cook Islander)
[2017-08-01 10:39] LABS: BASO # 0.02 K/mm3 (0.0-2.0); BASO % 0.2 % (0.0-3.0); EOS # 0.1 (0.0-0.7); EOS % 0.6 % (1.5-5.0); GRAN # 5.89 (1.4-6.5); GRAN % 70.4 % (50.0-68.0); HEMATOCRIT 35.6 % (36.0-48.0); LYMPH # 1.3 (1.2-3.4); LYMPH % 15.6 % (22.0-35.0); MEAN CELL VOLUME 87.7 fl (80.0-105.0); MEAN CORPUSCULAR HEMOGLOBIN 29.6 pg (25.0-35.0); MEAN CORPUSCULAR HGB CONC 33.7 g/dl (31.0-37.0); MEAN PLATELET VOLUME 9.1 fl (7.0-11.0); MONO # 1.1 (0.1-0.6); MONO % 13.2 % (1.0-6.0); RED CELL DISTRIBUTION WIDTH 13.7 % (11.5-14.5); WHITE BLOOD COUNT 8.4 10^3/ul (4.5-11.0)
[2017-08-01 10:49] LABS: ALB/GLOB RATIO 0.9 (1.1-1.8); ALKALINE PHOSPHATASE 132 U/L (38-126); ALT/SGPT 24 U/L (7-56); AST/SGOT 52 U/L (14-36); BLOOD UREA NITROGEN 4 mg/dL (7-21); CALCIUM 9.6 mg/dL (8.4-10.5); CARBON DIOXIDE 27 mmol/L (21-33); CHLORIDE 96 mmol/L (98-107); GFR AFRICAN-AMERICAN > 60; GLUCOSE,RANDOM 118 mg/dL (70-110); SODIUM 134 mmol/L (132-148); TOTAL PROTEIN 8.6 g/dL (5.8-8.3)
[2017-08-01 10:58] LABS: INR 1.34 (0.93-1.08); PARTIAL THROMBOPLASTIN TIME 32.1 Seconds (25.1-36.5)
[2017-08-01 11:27] VITALS: BP 145/91; PULSE 95; RESP 16; O2SAT 100
--- NOTE | 2017-08-01 16:30 | CARD ---
APPROVED REPORT EKG Measurement Heart [id number] <Conclusion> Sinus tachycardia Minimal voltage criteria for LVH, may be normal variant NSSTW changes
--- NOTE | 2017-08-02 08:44 | ED ---
SUBJECTIVE: This 47-year-old female was examined in the [facility] ER with physician diagnostic assistant, Sheryl Donovan who was evaluating the patient with the surgical team for complaints of generalized weakness and abdominal pain, status post colon resection approximately 10 days ago. The patient admitted to weakness, deconditioning and some mild drainage from the incisional site which was evaluated by Dr. Calvillo and his surgical residents and for which they performed a bedside incision and drainage and packing of her abdominal wound and advised her to follow up in Dr. Calvillo's office this Tuesday for further evaluation of the wound and removal of additional misa from her postoperative wound site. PAST MEDICAL HISTORY: The patient's past medical history is significant for diverticulitis and left colon resection for stage IIIC colon carcinoma for which the patient was advised to follow up in my office which she failed to do and also to follow up with Dr. Fawad Anthony from oncology which she states she will do this where he will need to further evaluate her operative findings of 4.5 cm tumor that was resected with 16 out of 27 positive lymph nodes for adenocarcinoma. He clearly advised the patient that she will need chemotherapy and when he sees her, he will probably order a PET scan with a repeat CEA level to determine what kind of chemotherapy the patient will need to do. He felt that she will probably begin chemotherapy with 5-FU infusion and he will further evaluate additional intervention when he sees her, I have explained to the patient. PHYSICAL EXAMINATION: VITAL SIGNS: At the time of this evaluation, the patient had vital signs of; temperature 98.6, respirations 20, pulse 95, blood pressure 130/85 and pulse ox 99% on room air. HEENT: Head normocephalic, atraumatic. Eyes: No icterus. Ears: Clear. Throat: Noninjected. NECK: Supple. HEART: Regular S1 and S2. LUNGS: Clear. ABDOMEN: Obese with a new abdominal wound dressing intact and dry. EXTREMITIES: No edema. SKIN: Without rash. NEUROLOGICAL: Intact. PSYCHOLOGICAL: Alert. VASCULAR: Legs warm to touch. LABORATORY DATA: White count 8400, hemoglobin 12, hematocrit 35.6 and platelets 601,000. INR 1.34, PTT 32.1. Sodium 134, potassium 4.0, chloride 96, bicarb 27, BUN 4, creatinine 0.4, random blood sugar 118. Bilirubin 1, AST 52, ALT 24, alk phos 132. IMPRESSION: This is a 47-year-old female with morbid obesity; status post colon resection for stage IIIC colon cancer; adenocarcinoma with recent diverticulitis; postoperative anemia, now resolved; postoperative obstipation, improved; chronic degenerative arthritis; history of sciatica and pathology showing a 4.5 cm tumor mass with 16 out of 27 lymph nodes positive for metastatic cancer. Once again, I have advise the patient to followup in my office within 1 week for further evaluation of overall medical comorbidities. Hopefully, she will see Dr. Fawad Anthony, the oncologist this week, at his office and Dr. Delta Calvillo this Tuesday for further evaluation of her wound and need for staple removal. All of this was discussed in detail with the patient at her emergency room bedside in the presence of Sheryl Donovan physician diagnostic assistant and hopefully the patient will be compliant with these recommendations as outlined. All questions were answered. Karol Banks MD [email or web address]
== END 2017-08-01 11:33 | disposition home or self-care (01) ==
LOC: ED 09:38
DX: R10.9 Unspecified abdominal pain (principal); Z51.89 Encounter for other specified aftercare; E66.01 Morbid (severe) obesity due to excess calories; Z85.038 Personal history of other malignant neoplasm of large intestine; Z90.49 Acquired absence of other specified parts of digestive tract
CPT/HCPCS: 12001; 80053; 85025; 85610; 85730; 93005; 96360; 99285; J7040

== ENCOUNTER 2017-09-28 11:03 | Day surgery (SDC) | payer BC ==
[2017-09-23 11:56] VITALS: BMI 40.2
[2017-09-28 12:17] LABS: INR 1.44 (0.93-1.08); PARTIAL THROMBOPLASTIN TIME 33.3 Seconds (25.1-36.5)
[2017-09-28 12:19] LABS: BASO # 0.02 K/mm3 (0.0-2.0); BASO % 0.2 % (0.0-3.0); EOS % 0.1 % (1.5-5.0); GRAN # 8.24 (1.4-6.5); GRAN % 74.5 % (50.0-68.0); HEMATOCRIT 35.8 % (36.0-48.0); LYMPH # 1.3 (1.2-3.4); MEAN CELL VOLUME 87.7 fl (80.0-105.0); MEAN CORPUSCULAR HEMOGLOBIN 29.4 pg (25.0-35.0); MEAN CORPUSCULAR HGB CONC 33.5 g/dl (31.0-37.0); MEAN PLATELET VOLUME 9.5 fl (7.0-11.0); MONO # 1.5 (0.1-0.6); MONO % 13.2 % (1.0-6.0); RED CELL DISTRIBUTION WIDTH 14.3 % (11.5-14.5); WHITE BLOOD COUNT 11.1 10^3/ul (4.5-11.0)
[2017-09-28 12:40] LABS: BLOOD UREA NITROGEN 2 mg/dL (7-21); GLUCOSE,RANDOM 125 mg/dL (70-110)
[2017-09-28 12:41] LABS: CALCIUM 9.3 mg/dL (8.4-10.5); CARBON DIOXIDE 29 mmol/L (21-33); CHLORIDE 94 mmol/L (98-107); GFR AFRICAN-AMERICAN > 60; POTASSIUM 3.6 mmol/L (3.6-5.0); SODIUM 132 mmol/L (132-148); TOTAL PROTEIN 8.4 g/dL (5.8-8.3)
[2017-09-28 12:42] LABS: ALB/GLOB RATIO 0.6 (1.1-1.8); ALKALINE PHOSPHATASE 285 U/L (38-126); ALT/SGPT 31 U/L (7-56); AST/SGOT 93 U/L (14-36); BILIRUBIN,TOTAL 0.7 mg/dL (0.2-1.3)
[2017-09-28] MEDS ORDERED: Lidocaine 2% Inj (20ml) ONE ×2 (12:50→13:19)
[2017-09-28] MEDS ORDERED: HEPARIN SODIUM/NS 1,000 ML IV ONE (12:50)
[2017-09-28] MEDS ORDERED: Midazolam 2 MG/2 ML VIAL ONE (13:19)
[2017-09-28] MEDS ORDERED: Oxycodone/Acetaminophen 5/325 mg Tab PO PRN (14:12)
[2017-09-28] MEDS ORDERED: Sodium Chloride 0.45% 1,000 ML IV SCH (14:15)
[2017-09-28 14:22] VITALS: TEMP 98.1
[2017-09-28] MEDS ORDERED: Oxycodone/Acetaminophen 5/325 mg Tab ONE (15:10)
[2017-09-28 15:30] VITALS: O2SAT 98
[2017-09-28 15:35] VITALS: BP 114/81; PULSE 92; RESP 20
--- NOTE | 2017-09-28 16:21 | VASCULAR ---
PROCEDURE: Ultrasound and fluoroscopic right internal jugular venous access port. CLINICAL HISTORY: Metastatic colon carcinoma.Venous port for chemotherapy. PHYSICIAN(S): Curtis Al M.D. TECHNIQUE: The relative risks and indications of the procedure were explained to the patient and consent obtained. The patient was placed supine on the arteriogram table and the right neck and chest prepped and draped in the usual sterile fashion. Conscious sedation monitoring was provided throughout the procedure by a nurse. Antibiotics were given prior to the procedure. Under direct ultrasound guidance, the right internal jugular vein was punctured with a micro-puncture set. A 0.035 angled Glidewire was advanced into the IVC. A 4 cm incision was made below the right clavicle and the pocket blunted dissected. A 8 Czech single-lumen catheter, 23 cm long, was advanced to the SVC/RA junction. The catheter was trimmed and attached to the port. The port aspirates and injects easily. The port was placed in the pocket and closed in 2 layers. The patient tolerated the procedure well. IMPRESSION: Ultrasound and fluoroscopically placed right internal jugular venous access port.
== END 2017-09-28 16:30 | disposition home or self-care (01) ==
LOC: SDSVAS 11:03
PROVIDERS: ATTEND Radiology Vascular & Interventional Radiology
DX: C18.9 Malignant neoplasm of colon, unspecified (principal)

== ENCOUNTER 2017-10-24 14:07 | Inpatient (IN) | payer BC ==
[2017-10-24 14:53] VITALS: BMI 36.0
--- NOTE | 2017-10-24 16:31 | ED PDOC ---
Arrival/HPI <Yanique Spence - Last Filed: 10/24/17 16:41> <Joseph Meza - Last Filed: 10/24/17 20:12> - General Chief Complaint: GI Problem Time Seen by Provider: 10/24/17 15:34 - History of Present Illness Narrative History of Present Illness (Text): 10/24/17 16:28 47F presents with abdominal pain worse for the past month, but started after surgery in July. Patient was admitted for diverticulitis, had a colonoscopy with mass that was found, left partial colectomy with anastamosis was done. patient had PET scan showing mets to liver. Patient started on chemo , October 20. Patient states she feels a pulling sensation in the middle of her abdomen with the most amount of pain in midepigastric and midabdomen. Patient states she hasn't had a proper meal in a long time and sometimes drinks ensure, but ends up vomiting or spitting up phlegm. Patient denies fever, chills. Patient admits to abdominal pain, nausea, vomiting. patient's last bowel movement was yesterday, but was small stool, that wasn't fully formed. Patient states the last bowel movement before that was two days ago. PMH: Morbid obesity, diverticulosis, diagnosed with colon cancer with metastasis to liver (on PET scan not done at [facility] [place]) PSH: Partial left colectomy with anastamosis 07/11/17, portacath insertion All: Denies SH: Denies ETOH (previous notes admits to 4-5 drinks ETOH/mo), denies tobacco or illicit drug use. Lives at home with her sons Family Hx: Mother - Hx of "Spine CA" diagnosed at 80. PMD: None Pharmacy: [facility] 10/24/17 16:41 (Yanique Spence) Past Medical History - Infectious Disease Hx of Infectious Diseases: None - Tetanus Immunization Tetanus Immunization: Unknown - Cardiac Hx Pacemaker: No - Pulmonary Hx Respiratory Disorders: No - Neurological Hx Paralysis: No - HEENT Hx HEENT Disorder: No - Renal Hx Renal Disorder: No - Endocrine/Metabolic Hx Endocrine Disorders: No - Hematological/Oncological Hx Blood Transfusions: No - Integumentary Hx Dermatological Disorder: No - Musculoskeletal/Rheumatological Hx Musculoskeletal Disorders: Yes - Gastrointestinal Hx Gastrointestinal Disorders: (COLON CA; LIVER CA ?WITH METS) Hx Constipation: Yes Hx Diverticulitis: Yes - Genitourinary/Gynecological Hx Genitourinary Disorders: No Other/Comment: colon ca - Psychiatric Hx Emotional Abuse: No Hx Physical Abuse: No Hx Substance Use: No - Surgical History Other/Comment: COLON SX. ABDOMINAL SX - Anesthesia Hx Anesthesia: Yes Hx Anesthesia Reactions: No Hx Malignant Hyperthermia: No - Suicidal Assessment Feels Threatened In Home Enviroment: No <JordyYanique - Last Filed: 10/24/17 16:41> Family/Social History Family/Social History: Neoplasm/Cancer Smoking Status: Never Smoked Hx Alcohol Use: No (records show patient used to drink) Hx Substance Use: No <JordyYanique - Last Filed: 10/24/17 16:41> Allergies/Home Meds <JordyYanique - Last Filed: 10/24/17 16:41> <Joseph Meza - Last Filed: 10/24/17 20:12> Allergies/Adverse Reactions: Allergies No Known Allergies Allergy (Verified 07/05/17 19:58) Home Medications: Home Meds Medication Instructions Recorded Confirmed Capecitabine [Capecitabine] 1,000 mg PO BID 10/24/17 10/24/17 Review of Systems - Physician Review All systems were reviewed & negative as marked: Yes - Review of Systems Constitutional: Fatigue, Weight Change. absent: Fevers, Night Sweats Eyes: absent: Vision Changes, Photophobia ENT: absent: Hearing Changes, Tinnitus, Sinus Congestion Respiratory: absent: SOB, Cough, Sputum Cardiovascular: absent: Chest Pain, Palpitations, Edema Gastrointestinal: Abdominal Pain, Nausea, Vomiting, Food Intolerance. absent: Hematochezia, Hematemesis Musculoskeletal: Normal. absent: Back Pain, Neck Pain, Myalgias Skin: Normal. absent: Rash, Pruritis, Skin Lesions Neurological: Normal. absent: Headache, Dizziness, Focal Weakness Endocrine: absent: Diaphoresis, Polyuria, Polydipsia Hemo/Lymphatic: absent: Adenopathy, Easy Bleeding, Easy Bruising Psychiatric: absent: Anxiety, Depression, Suicidal Ideation <JordyYanique - Last Filed: 10/24/17 16:41> Physical Exam - Systems Exam Head: Present: Atraumatic, Normocephalic, Other (arcus senlilis) Pupils: Present: Other Extroacular Muscles: Present: EOMI Conjunctiva: Present: Normal Pharnyx: Present: Normal Nose (Internal): Present: Normal Inspection Respiratory/Chest: Present: Clear to Auscultation. No: Respiratory Distress Cardiovascular: Present: Regular Rate and Rhythm, Normal S1, S2. No: Murmurs Abdomen: Present: Tenderness (midepigastric, mid abdomen), Distention, Guarding. No: Normal Bowel Sounds (no bowel sounds auscultated on any quadrant) , Peritoneal Signs, Rebound Lower Extremity: Present: Normal Inspection Neurological: Present: CN II-XII Intact, Speech Normal Skin: Present: Warm, Dry, Other (portacath incision on right upper chest and steri-strip on neck) Psychiatric: Present: Alert, Normal Insight, Normal Concentration <Yanique Spence - Last Filed: 10/24/17 16:41> Vital Signs Pulse Resp BP Pulse Ox 10/24/17 19:57 84 18 105/61 99 10/24/17 17:20 96 H 18 121/78 100 Medical Decision Making <Yanique Spence - Last Filed: 10/24/17 16:41> <Joseph Meza - Last Filed: 10/24/17 20:12> ED Course and Treatment: 10/24/17 16:42 In agreement with resident note, which includes further HPI details. Patient was seen and evaluated with resident, came up with plan and treatment together. (Joseph Meza) - Lab Interpretations Lab Results: 10/24/17 16:34 10/24/17 16:34 Lab Results 10/24/17 17:55: Lactic Acid 1.4 10/24/17 16:34: Sodium 128 L, Potassium 3.0 L, Chloride 89 L, Carbon Dioxide 33 , Anion Gap 9 L, BUN 5 L, Creatinine 0.5 L, Est GFR ( Amer) > 60, Est GFR (Non-Af Amer) > 60, Random Glucose 110, Calcium 9.0, Total Bilirubin 1.4 H, AST 101 H, ALT 28, Alkaline Phosphatase 220 H D, Total Protein 7.8, Albumin 3.1 , Globulin 4.7, Albumin/Globulin Ratio 0.7 L, Amylase 44, Lipase 30 10/24/17 16:34: WBC 13.2 H, RBC 3.76, Hgb 11.2 L, Hct 32.9 L, MCV 87.5, MCH 29.8 , MCHC 34.0, RDW 14.1, Plt Count 480 H, MPV 9.3, Gran % 75.6 H, Lymph % (Auto) 12.5 L, Drew % (Auto) 11.6 H, Eos % (Auto) 0.1 L, Baso % (Auto) 0.2, Gran # 9.96 H, Lymph # 1.7, Drew # 1.5 H, Eos # 0.0, Baso # 0.02 f/u CT abdomen PO/IV contrast f/u amylase, lipase f/u CBC, CMP f/u procal (Eng,Yanique) - RAD Interpretation Radiology Orders: 10/24/17 16:16 ABD PELVIS PO & IV CONTRAST [CT] Urgent - Medication Orders Current Medication Orders: Hydromorphone HCl (Dilaudid) 1 mg IVP Q4H PRN PRN Reason: Pain, moderate (4-7) Sodium Chloride (Sodium Chloride 0.9%) 1,000 mls @ 100 mls/hr IV .Q10H JEANCARLOS Last Admin: 10/24/17 17:59 Dose: 100 mls/hr eMAR Start Stop Document 10/24/17 17:59 SRE (Rec: 10/24/17 18:00 SRE [id number]) Intravenous Solution Start Date 10/24/17 Start Time 17:30 Potassium Chloride (Potassium Chloride 10 Meq/100 Ml) 10 meq in 100 mls @ 50 mls/hr IVPB Q1H JEANCARLOS Stop: 10/24/17 23:44 Last Admin: 10/24/17 18:00 Dose: 50 mls/hr eMAR Start Stop Document 10/24/17 18:00 SRE (Rec: 10/24/17 18:01 SRE [id number]) Intravenous Solution Start Date 10/24/17 Start Time 18:01 End Date 10/24/17 End time 20:00 Total Infusion Time 119 Pantoprazole Sodium (Protonix 40mg Ivpb) 40 mg in 100 mls @ 200 mls/hr IVPB 0600 JEANCARLOS Sodium Chloride (Sodium Chloride 0.9%) 1,000 mls @ 100 mls/hr IV .Q10H STA Stop: 10/25/17 06:04 Ondansetron HCl (Zofran Inj) 4 mg IVP Q4H PRN PRN Reason: Nausea/Vomiting Disposition/Present on Arrival - Present on Arrival Any Indicators Present on Arrival: No History of DVT/PE: No History of Uncontrolled Diabetes: No Urinary Catheter: No History of Decub. Ulcer: No History Surgical Site Infection Following: None <Yanique Spence - Last Filed: 10/24/17 16:41> - Disposition Have Diagnosis and Disposition been Completed?: Yes Disposition Time: 20:15 Patient Plan: Admission <Joseph Meza - Last Filed: 10/24/17 20:12> - Disposition Diagnosis: Colon cancer metastasized to liver Disposition: HOSPITALIZED Condition: GOOD Referrals: Karol Banks MD [Primary Care Provider] - Follow up with primary Forms: [employer] (Lithuanian)
[2017-10-24] MEDS ORDERED: Iohexol 240 (50 ml) ONE (16:39)
[2017-10-24 16:57] LABS: BASO # 0.02 [, K/mm3] (0.0-2.0); BASO % 0.2 % (0.0-3.0); EOS % 0.1 % (1.5-5.0); GRAN # 9.96 (1.4-6.5); GRAN % 75.6 % (50.0-68.0); HEMOGLOBIN 11.2 g/dL (12.0-16.0); LYMPH # 1.7 (1.2-3.4); LYMPH % 12.5 % (22.0-35.0); MEAN CELL VOLUME 87.5 fl (80.0-105.0); MEAN CORPUSCULAR HEMOGLOBIN 29.8 pg (25.0-35.0); MEAN PLATELET VOLUME 9.3 fl (7.0-11.0); MONO # 1.5 (0.1-0.6); MONO % 11.6 % (1.0-6.0); RBC 3.76 [, 10^6/uL] (3.5-6.1); RED CELL DISTRIBUTION WIDTH 14.1 % (11.5-14.5); WHITE BLOOD COUNT 13.2 [, 10^3/ul] (4.5-11.0)
[2017-10-24 16:59] LABS: ALB/GLOB RATIO 0.7 (1.1-1.8); ALBUMIN 3.1 g/dL (3.0-4.8); ALT/SGPT 28 U/L (7-56); AMYLASE 44 U/L (35-125); AST/SGOT 101 U/L (14-36); BLOOD UREA NITROGEN 5 mg/dL (7-21); GFR AFRICAN-AMERICAN > 60; GFR NON-AFRICAN AMERICAN > 60; LIPASE 30 U/L (23-300)
[2017-10-24] MEDS ORDERED: Potassium Chloride 20 mEq ER Tab PO STA (17:27)
[2017-10-24] MEDS: Sodium Chloride 0.9% 1,000 ML IV SCH (17:59)
[2017-10-24] MEDS ORDERED: Iohexol 350 MG/100 ML VIAL ONE (18:24)
--- NOTE | 2017-10-24 19:53 | CT ---
EXAM: CT Abdomen and Pelvis With Intravenous Contrast CLINICAL HISTORY: 47 years old, female; Pain; Abdominal pain; Acute; Patient HX: Colon mets to liver; Additional info: Abdominal pain, absent bowel sounds TECHNIQUE: Axial computed tomography images of the abdomen and pelvis with intravenous contrast. All CT scans at this facility use one or more dose reduction techniques, viz.: automated exposure control; ma/kV adjustment per patient size (including targeted exams where dose is matched to indication; i.e. head); or iterative reconstruction technique. Coronal and sagittal reformatted images were created and reviewed. CONTRAST: 100 mL of omni administered intravenously. COMPARISON: CT - ABD PELVIS W/O PO OR IV CONT 2017-07-05 21:18 FINDINGS: Lower thorax: Few enlarged, necrotic lymph nodes within cardiophrenic angle, up to 1.5 cm short axis. Minimal atelectasis/scarring. ABDOMEN: Liver: Multiple hypodense lesions, indeterminate by CT criteria. Gallbladder and bile ducts: No calcified stones. No ductal dilation. Pancreas: No ductal dilation. No mass. Spleen: No splenomegaly. Adrenals: No mass. Kidneys and ureters: No mass. No hydronephrosis. Stomach and bowel: Postsurgical changes of descending colon. Mild focal dilatation at level of anastomosis. Few scattered diverticula within colon. No associated inflammatory stranding. No definite mural thickening. Appendix: Normal caliber. No inflammation. PELVIS: Bladder: Unremarkable. Reproductive: Lobulated uterus with heterogeneous enhancing fundal mass. ABDOMEN and PELVIS: Intraperitoneal space: Trace free fluid within abdomen. No free air. Bones/joints: Mild degenerative changes of spine. No acute fracture. Soft tissues: Laparotomy scar. Vasculature: Mild atherosclerotic disease. No aneurysm. Lymph nodes: Few borderline enlarged short axis lymph nodes along left abdomen. IMPRESSION: 1. Findings compatible with hepatic and lymph node metastases. 2. Mild focal dilatation at level of anastomosis, nonspecific. 3. Probable fibroid uterus. 4. Incidental/non-acute findings are described above.
[2017-10-24] MEDS ORDERED: Sodium Chloride 0.9% 1,000 ML IV STA (20:05)
[2017-10-24 21:01] LABS: PH,URINE 5.5 (4.7-8.0); URINE BILIRUBIN NEGATIVE (NEGATIVE); URINE BLOOD MODERATE (NEGATIVE); URINE GLUCOSE (UA) NEGATIVE (NEGATIVE); URINE LEUKOCYTE ESTERASE NEGATIVE Leu/uL (NEGATIVE); URINE NITRATE NEGATIVE (NEGATIVE); URINE PROTEIN TRACE mg/dL (<30 mg/dL); URINE UROBILINOGEN 0.2 E.U./dL (<1 E.U./dL)
[2017-10-24 21:02] LABS: URINE APPEARANCE SL CLOUDY (CLEAR); URINE COLOR YELLOW (YELLOW)
[2017-10-24] MEDS: HYDROmorphone 1 mg/ml ISec IVP PRN (21:04)
[2017-10-24 21:17] LABS: URINE WBC 0 - 2 /hpf (0-6)
--- NOTE | 2017-10-24 23:29 | CP.PCM.CON ---
History of Present Illness - History of Present Illness History of Present Illness: General Surgery - Dr. Calvillo 47F w/ metastatic colon CA, s/p L partial colectomy on 07/11/17, started chemo 08/27, now presenting with complaints of abdominal pain, N/V. Pt states the pain began about a month ago and has slowly become worse. She describes it as a periumbilical discomfort radiating across the Right side and into the epigastric area, dull/aching pain that never seems to go away and gets slightly worse with lying on the right side. She also has had poor PO intake which she attributes to persistent nausea and intermittent vomiting of gastric contents, non-bilious, non-bloody. She is tolerating liquids and ensure some of the time but unable to tolerate any solid foods. Pt states she is having bowel movements but not as frequently as she used to, now about every 2 days but normal/formed stool. She admits to chills, denies any Fevers, SOB, chest pains , diarrhea, dysuria. PMH: Diverticulitis, Colon CA w/ liver mets PSH: L partial colectomy 07/11/17, Portacath No ETOH/Tobacco/Drug use NKDA Review of Systems - Review of Systems All systems: reviewed and no additional remarkable complaints except (as per HPI ) Past Patient History - Infectious Disease Hx of Infectious Diseases: None - Tetanus Immunizations Tetanus Immunization: Unknown - Past Social History Smoking Status: Never Smoked - CARDIAC Hx Pacemaker: No - PULMONARY Hx Respiratory Disorders: No - NEUROLOGICAL Hx Paralysis: No - HEENT Hx HEENT Problems: No - RENAL Hx Chronic Kidney Disease: No - ENDOCRINE/METABOLIC Hx Endocrine Disorders: No - HEMATOLOGICAL/ONCOLOGICAL Hx Blood Transfusions: No - INTEGUMENTARY Hx Dermatological Problems: No - MUSCULOSKELETAL/RHEUMATOLOGICAL Hx Musculoskeletal Disorders: Yes - GASTROINTESTINAL Hx Gastrointestinal Disorders: (COLON CA; LIVER CA ?WITH METS) Hx Constipation: Yes Hx Diverticulitis: Yes - GENITOURINARY/GYNECOLOGICAL Hx Genitourinary Disorders: No Other/Comment: colon ca - PSYCHIATRIC Hx Emotional Abuse: No Hx Physical Abuse: No Hx Substance Use: No - SURGICAL HISTORY Other/Comment: COLON SX. ABDOMINAL SX - ANESTHESIA Hx Anesthesia: Yes Hx Anesthesia Reactions: No Hx Malignant Hyperthermia: No Meds Allergies/Adverse Reactions: Allergies Allergy/AdvReac Type Severity Reaction Status Date / Time No Known Allergies Allergy Verified 07/05/17 19:58 - Medications Medications: Current Medications Hydromorphone HCl (Dilaudid) 1 mg IVP Q4H PRN PRN Reason: Pain, moderate (4-7) Last Admin: 10/24/17 21:04 Dose: 1 mg Sodium Chloride (Sodium Chloride 0.9%) 1,000 mls @ 100 mls/hr IV .Q10H [facility] Last Admin: 10/24/17 17:59 Dose: 100 mls/hr Potassium Chloride (Potassium Chloride 10 Meq/100 Ml) 10 meq in 100 mls @ 50 mls/hr IVPB Q1H [facility] Stop: 10/24/17 23:44 Last Admin: 10/24/17 22:11 Dose: 50 mls/hr Pantoprazole Sodium (Protonix 40mg Ivpb) 40 mg in 100 mls @ 200 mls/hr IVPB 0600 [facility] Sodium Chloride (Sodium Chloride 0.9%) 1,000 mls @ 100 mls/hr IV .Q10H STA Stop: 10/25/17 06:04 Ondansetron HCl (Zofran Inj) 4 mg IVP Q4H PRN PRN Reason: Nausea/Vomiting Physical Exam - Constitutional Appears: No Acute Distress - Head Exam Head Exam: ATRAUMATIC, NORMAL INSPECTION, NORMOCEPHALIC - Eye Exam Eye Exam: Normal appearance - ENT Exam ENT Exam: Mucous Membranes Dry - Respiratory Exam Respiratory Exam: NORMAL BREATHING PATTERN. absent: Respiratory Distress - Cardiovascular Exam Cardiovascular Exam: REGULAR RHYTHM - GI/Abdominal Exam GI & Abdominal Exam: Guarding (RUQ ), Soft, Tenderness (RUQ and epigastric). absent: Distended, Hernia, Rebound, Rigid - Neurological Exam Neurological exam: Alert, Oriented x3 - Psychiatric Exam Psychiatric exam: Normal Affect, Normal Mood - Skin Skin Exam: Dry, Intact Results - Vital Signs Recent Vital Signs: Last Vital Signs Temp Pulse 82 10/24/17 21:06 Resp 18 10/24/17 21:06 BP 119/78 10/24/17 21:06 Pulse Ox 100 10/24/17 21:06 - Labs Result Diagrams: 10/24/17 16:34 10/24/17 16:34 Labs: Laboratory Results - last 24 hr 10/24/17 20:45 Urine Color Yellow Urine Appearance Sl cloudy Urine pH 5.5 Ur Specific [place] 1.010 Urine Protein Trace H Urine Glucose (UA) Negative Urine Ketones 15 H Urine Blood Moderate H Urine Nitrate Negative Urine Bilirubin Negative Urine Urobilinogen 0.2 Ur Leukocyte Esterase Negative Urine RBC 1 - 3 Urine WBC 0 - 2 Ur Epithelial Cells 3 - 4 - Imaging and Cardiology CT scan - abdomen Status: Image reviewed by me, Report reviewed by me Assessment & Plan - Assessment and Plan (Free Text) Assessment: 47 yo F w/ Stage IV Colon CA, abdominal pain and poor PO intake -CT w/ extensive liver mets significantly increased from prior -No acute surgical issues -Continue supportive care, IVF, Pain control -F/U GI Reccs. -Will follow DW Dr Rajinder Amos PGY3
[2017-10-25] MEDS: Pantoprazole 40mg/100ml IVPB 40 MG/100 ML BAG IVPB SCH (06:16)
[2017-10-25] MEDS: Sodium Chloride 0.9% 1,000 ML IV SCH ×2 (06:18→17:04)
--- NOTE | 2017-10-25 08:21 | CP.PCM.PN ---
Subjective - Date & Time of Evaluation Date of Evaluation: 10/25/17 Time of Evaluation: 07:45 - Subjective Subjective: General Surgery - Dr. Calvillo Patient has been seen and examined. Still complains of nausea and vomiting. She is unable to tolerate clear liquids. Positive for one bowel movement last night and flatus. Continues complain of epigastric/periumbilical tenderness. Objective - Vital Signs/Intake and Output Vital Signs (last 24 hours): Temp Pulse Resp BP Pulse Ox 98.0 F 96 H 16 130/83 100 10/24/17 23:07 10/24/17 23:07 10/24/17 23:07 10/24/17 23:07 10/24/17 21:06 Intake and Output: 10/25/17 10/25/17 06:59 18:59 Intake Total 900 Balance 900 - Medications Medications: Current Medications Hydromorphone HCl (Dilaudid) 1 mg IVP Q4H PRN PRN Reason: Pain, moderate (4-7) Last Admin: 10/24/17 21:04 Dose: 1 mg Sodium Chloride (Sodium Chloride 0.9%) 1,000 mls @ 100 mls/hr IV .Q10H [facility] Last Admin: 10/25/17 06:18 Dose: 100 mls/hr Pantoprazole Sodium (Protonix 40mg Ivpb) 40 mg in 100 mls @ 200 mls/hr IVPB 0600 [facility] Last Admin: 10/25/17 06:16 Dose: 200 mls/hr Ondansetron HCl (Zofran Inj) 4 mg IVP Q4H PRN PRN Reason: Nausea/Vomiting - Additional Findings Additional findings: - Constitutional Appears: No Acute Distress - Head Exam Head Exam: ATRAUMATIC, NORMAL INSPECTION, NORMOCEPHALIC - Eye Exam Eye Exam: Normal appearance - ENT Exam ENT Exam: Mucous Membranes Dry - Respiratory Exam Respiratory Exam: NORMAL BREATHING PATTERN. absent: Respiratory Distress - Cardiovascular Exam Cardiovascular Exam: REGULAR RHYTHM - GI/Abdominal Exam GI & Abdominal Exam: Voluntary Guarding, Soft, Tenderness (periumbilical and epigastric). absent: Distended, Hernia, Rebound, Rigid - Neurological Exam Neurological exam: Alert, Oriented x3 - Psychiatric Exam Psychiatric exam: Normal Affect, Normal Mood - Skin Skin Exam: Dry, Intact Assessment and Plan - Assessment and Plan (Free Text) Assessment: 47 yo F w/ Stage IV Colon CA, abdominal pain and poor PO intake CT Abd/Pelvis (Admission): 1. Findings compatible with hepatic and lymph node metastases. 2. Mild focal dilatation at level of anastomosis, nonspecific. 3. Probable fibroid uterus. 4. Incidental/non-acute findings are described above. Plan: -CT w/ extensive liver mets significantly increased from prior -No acute surgical issues -Continue supportive care, IVF, Pain control -F/U GI Recs. -Advanced Diet as Tolerated -Will follow Will discuss with Dr. Rajinder Covarrubias - PGY1
[2017-10-25] MEDS: HYDROmorphone 1 mg/ml ISec IVP PRN (08:40)
--- NOTE | 2017-10-25 10:52 | CARD ---
APPROVED REPORT EKG Measurement Heart [id number] <Conclusion> Sinus tachycardia Cannot rule out Anterior infarct, age undetermined Abnormal ECG
[2017-10-25 11:14] LABS: HEMOGLOBIN 10.6 g/dL (12.0-16.0); MEAN CELL VOLUME 89.3 fl (80.0-105.0); MEAN CORPUSCULAR HEMOGLOBIN 29.8 pg (25.0-35.0); MEAN CORPUSCULAR HGB CONC 33.3 g/dl (31.0-37.0); MEAN PLATELET VOLUME 9.1 fl (7.0-11.0); RBC 3.56 [, 10^6/uL] (3.5-6.1); RED CELL DISTRIBUTION WIDTH 14.5 % (11.5-14.5); WHITE BLOOD COUNT 10.4 [, 10^3/ul] (4.5-11.0)
[2017-10-25 11:36] LABS: ALB/GLOB RATIO 0.7 (1.1-1.8); ALBUMIN 2.9 g/dL (3.0-4.8); ALT/SGPT 28 U/L (7-56); AST/SGOT 82 U/L (14-36); BLOOD UREA NITROGEN 3 mg/dL (7-21); CALCIUM 8.8 mg/dL (8.4-10.5); GFR AFRICAN-AMERICAN > 60; GFR NON-AFRICAN AMERICAN > 60
--- NOTE | 2017-10-25 13:37 | CP.PCM.CON ---
History of Present Illness - History of Present Illness History of Present Illness: Seen and examined at the bedside earlier today, chart reviewed. Request for GI consult is for abdominal pain. HPI:this is a 47-year-old female with a past medical history of diverticulitis, colon cancer with metastasis to the liver,recently started chemotherapy on [address] Anthony. The patient states that for 2 weeks now she's been having mid abdominal epigastric tightness that moves downward and is only able to take fluid but reports that when she does take fluid she feels a tightening and ends up vomiting. She denies any hematemesis, no complaints of acid reflux. Denies any chest pains or pain radiating to bilateral arms. No complaints of fever or chills. as far as bowel movements, the patient reports BMs once every other day, occasionally takes MiraLAX. No reports of melena or bright red blood per rectum. Currently she had some loose bowel movement status post CT scan. She does report weight loss, she used to weigh about 289 and is currently 197.her last bowel movement was last night and she is passing flatus. On admission she had a CT scan with oral and IV contrast which showed multiple hypodense lesions in the liver, the stomach and bowel showed postsurgical changes in the descending colon, mild focal dilatation at the level of the anastomosis which is nonspecific and a few scattered diverticula within the colon but no associated inflammatory stranding, no mural thickening. Few borderline enlarged short access lymph nodes along the left of the abdomen were noted. The patient's last endoscopy was 06/22/17, found to have chronic gastritis and a normal duodenum. The gastric biopsies were negative for H. pylori or intestinal metaplasia. She did have a flex sigmoidoscopy on found to have multiple diverticuli in the sigmoid and 2 rectal polyps were noted and was hyperplastic, the patient has not had a full colonoscopy. The patient reported having a PET scan somewhere in July at [place]. PMH: Colon Cancer with metastasis to the liver, diverticulosis/diverticulitis, obesity, left-sided sciatica, chronic gastritis Surgical history: left partial colectomy 07/2017, Port-A-Cath, EGD 06/22/17: Chronic gastritis, flexible sigmoidoscopy based 07/11/17: Sigmoid diverticulosis , rectal polyps that were hyperplastic SOCIAL HISTORY: DENIES SMOKING OR ALCOHOL FAMILY HISTORY: mother had bone cancer Allergies: No known drug allergies Medications: reviewed as per MAR ROS: Systems reviewed with positive finding see HPI Past Patient History - Infectious Disease Hx of Infectious Diseases: None - Tetanus Immunizations Tetanus Immunization: Unknown - Past Social History Smoking Status: Never Smoked - CARDIAC Hx Pacemaker: No - PULMONARY Hx Respiratory Disorders: No - NEUROLOGICAL Hx Paralysis: No - HEENT Hx HEENT Problems: No - RENAL Hx Chronic Kidney Disease: No - ENDOCRINE/METABOLIC Hx Endocrine Disorders: No - HEMATOLOGICAL/ONCOLOGICAL Hx Blood Transfusions: No - INTEGUMENTARY Hx Dermatological Problems: No - MUSCULOSKELETAL/RHEUMATOLOGICAL Hx Musculoskeletal Disorders: Yes - GASTROINTESTINAL Hx Gastrointestinal Disorders: (COLON CA; LIVER CA ?WITH METS) Hx Constipation: Yes Hx Diverticulitis: Yes - GENITOURINARY/GYNECOLOGICAL Hx Genitourinary Disorders: No Other/Comment: colon ca - PSYCHIATRIC Hx Emotional Abuse: No Hx Physical Abuse: No Hx Substance Use: No - SURGICAL HISTORY Other/Comment: COLON SX. ABDOMINAL SX - ANESTHESIA Hx Anesthesia: Yes Hx Anesthesia Reactions: No Hx Malignant Hyperthermia: No Meds Allergies/Adverse Reactions: Allergies Allergy/AdvReac Type Severity Reaction Status Date / Time No Known Allergies Allergy Verified 07/05/17 19:58 - Medications Medications: Current Medications Acetaminophen (Tylenol 325mg Tab) 650 mg PO Q6H PRN PRN Reason: Fever >100.4 F Sodium Chloride (Sodium Chloride 0.9%) 1,000 mls @ 100 mls/hr IV .Q10H [facility] Last Admin: 10/25/17 06:18 Dose: 100 mls/hr Pantoprazole Sodium (Protonix 40mg Ivpb) 40 mg in 100 mls @ 200 mls/hr IVPB 0600 [facility] Last Admin: 10/25/17 06:16 Dose: 200 mls/hr Morphine Sulfate (Morphine) 2 mg IVP Q6H PRN PRN Reason: severe pain Ondansetron HCl (Zofran Inj) 4 mg IVP Q4H PRN PRN Reason: Nausea/Vomiting Last Admin: 10/25/17 08:40 Dose: 4 mg Physical Exam - Constitutional Appears: No Acute Distress - Head Exam Head Exam: NORMOCEPHALIC - Eye Exam Eye Exam: Normal appearance. absent: Scleral icterus - ENT Exam ENT Exam: Mucous Membranes Moist - Neck Exam Neck exam: Positive for: Normal Inspection - Respiratory Exam Respiratory Exam: Clear to Auscultation Bilateral, NORMAL BREATHING PATTERN. absent: Respiratory Distress - Cardiovascular Exam Cardiovascular Exam: +S1, +S2 - GI/Abdominal Exam GI & Abdominal Exam: Diminished Bowel Sounds, Hypoactive Bowel Sounds, Soft, Tenderness (epigastric). absent: Guarding, Rebound - Extremities Exam Extremities exam: Positive for: pedal pulses present. Negative for: calf tenderness, pedal edema - Neurological Exam Neurological exam: Alert, Oriented x3 - Skin Skin Exam: Dry, Warm Results - Vital Signs Recent Vital Signs: Last Vital Signs Temp 98.7 F 10/25/17 06:00 Pulse 100 H 10/25/17 06:00 Resp 20 10/25/17 06:00 BP 112/71 10/25/17 06:00 Pulse Ox 98 10/25/17 06:00 - Labs Result Diagrams: 10/25/17 11:00 10/25/17 11:00 Labs: Laboratory Results - last 24 hr 10/24/17 10/25/17 10/25/17 20:45 11:00 11:00 WBC 10.4 D RBC 3.56 Hgb 10.6 L Hct 31.8 L MCV 89.3 MCH 29.8 MCHC 33.3 RDW 14.5 Plt Count 425 MPV 9.1 Sodium 130 L Potassium 3.7 Chloride 93 L Carbon Dioxide 27 Anion Gap 14 BUN 3 L Creatinine 0.4 L Est GFR ( Amer) > 60 Est GFR (Non-Af Amer) > 60 Random Glucose 76 Calcium 8.8 Total Bilirubin 1.1 AST 82 H ALT 28 Alkaline Phosphatase 188 H Total Protein 7.1 Albumin 2.9 L Globulin 4.3 Albumin/Globulin Ratio 0.7 L Urine Color Yellow Urine Appearance Sl cloudy Urine pH 5.5 Ur Specific [place] 1.010 Urine Protein Trace H Urine Glucose (UA) Negative Urine Ketones 15 H Urine Blood Moderate H Urine Nitrate Negative Urine Bilirubin Negative Urine Urobilinogen 0.2 Ur Leukocyte Esterase Negative Urine RBC 1 - 3 Urine WBC 0 - 2 Ur Epithelial Cells 3 - 4 Assessment & Plan - Assessment and Plan (Free Text) Assessment: Assessment: Abdominal pain, mainly epigastric Colon cancer with metastasis to the liver and an lymph nodes seen on CT, on chemotherapy History of recent left partial colectomy H/O Diverticulosis/diverticulitis Plan: Nothing by mouth, advance as tolerated continue IV for hydration Continue PPI Zofran prn pain management Monitor electrolytes surgery on board oncology FU Thank you for this consultation and for allowing us to participate in your patient's care, further recommendations based upon clinical course. Seen and discussed with Dr. Clemente who is covering Dr. Jimenez.
[2017-10-25] MEDS: Morphine 2 mg/ml ISec IVP PRN (21:35)
--- NOTE | 2017-10-25 22:29 | HP ---
DATE: 10/25/2017 This 47-year-old female was examined at her bedside. Her case was reviewed in detail with herself, Nursing, Dr. Calvillo from Surgery, and Renuka Nevarez, registered nurse, from GI. I have placed a call to her oncologist, Dr. Anthony, as well. HISTORY: The patient was admitted from the [facility] Emergency Room with a chief complaint of abdominal pain, nausea, vomiting, and inability to hold down p.o. fluids or medications. The patient has a history of metastatic colon cancer to her liver. She is followed by Dr. Fawad Anthony from Oncology. He started her on an intravenous chemotherapy last , and the patient at present was prescribed capecitabine 1000 mg p.o. b.i.d. The patient is alert, oriented, denying any fever, chills, chest pain, or shortness of breath, and is on IV fluids, IV Zofran, IV Protonix drip, and received a dose of Dilaudid earlier today for abdominal pain. PAST MEDICAL HISTORY: Significant for left lower quadrant colon resection for colon cancer and on recent PET scan with Dr. Fawad Anthony was found to have metastatic lesions to her liver. He has advised the patient that she can be treated but not cured and is outlining outpatient chemotherapy with the patient presently. REVIEW OF SYSTEMS: CONSTITUTIONAL: The patient denies fever or chills. HEAD: No headache or seizure. EYES: No change in visual acuity. EARS: No hearing loss. THROAT: No swallowing difficulty. NECK: No stiffness. CARDIAC: No chest pain, no palpitation. PULMONARY: No cough. No hemoptysis. GI: As per HPI. : No dysuria. SKIN: Without rash. NEUROLOGICAL: Unchanged. PSYCHOLOGICAL: Alert. VASCULAR: Legs are warm to touch. FAMILY HISTORY: Noncontributory. SOCIAL HISTORY: She is a nondrinker, nonsmoker, nonIV drug misuser. ALLERGIES: SHE HAS NO KNOWN ALLERGIES TO MEDICATION. OUTPATIENT MEDICATIONS: Included capecitabine 1000 mg p.o. b.i.d. PHYSICAL EXAMINATION: VITAL SIGNS: The patient is in a normal sinus rhythm on the cardiac cath lab radiology technologist. Temperature 98.7, respirations 20, pulse 100, blood pressure 112/71. Pulse ox 98% room air. HEENT: Head: Normocephalic, atraumatic. Eyes: No icterus. Ears: Clear. Throat: Noninjected. NECK: Supple. HEART: Regular. S1, S2. LUNGS: No wheezing, no rales. ABDOMEN: Obese, nontender. No palpable organomegaly. No rebound. No guarding. No tenderness. There is some mid epigastric discomfort on palpation. EXTREMITIES: No clubbing, no cyanosis, no edema. SKIN: Without rash. NEUROLOGICAL: Intact. PSYCHOLOGICAL: Alert and oriented x3. VASCULAR: Legs are warm to touch. LABORATORY DATA: Initial white count 13,200, hemoglobin 11.2, hematocrit 32.9, platelets 180,000. Presently, white count 10,400, hemoglobin 10.6, hematocrit 31.8, platelets 125,000. Sodium 130, potassium 3.7, chloride 93, bicarb 27, BUN 3, creatinine 0.4, random blood sugar is 76. Bilirubin 1.1, AST 82, ALT 28, alk phos 188. Procalcitonin level 0.17, low. Urinalysis showed 0 to 2 white blood cells, no bacteria. Abdominopelvic CT was reviewed. It showed findings compatible with hepatic and lymph node metastases, mild focal dilatation at the level of her colonic anastomosis which was a nonspecific finding, probable fibroid uterus, no bowel obstruction was noted. EKG, sinus tachycardia with nonspecific ST-T wave changes. IMPRESSION: A 47-year-old female with metastatic colon cancer to her liver, now admitted with abdominal pain, nausea, vomiting. PLAN: To await GI evaluation by Dr. Jessica Jimenez from GI while the patient is maintained on IV Protonix drip, IV 0.9 saline at 100 mL/hour, morphine 2 mg IV q.6 hours p.r.n. severe pain, and Zofran 4 mg IV q.4 hours p.r.n. nausea, vomiting. She is ordered to have a clear liquid diet trial as cleared by Dr. Delta Calvillo from Surgery, and she has been ordered to be out of bed to chair. We will await the results of her blood cultures, basic metabolic panel has been re-ordered for the a.m. All of the above was discussed in detail with the patient, Nursing, and co-consultants. All questions were answered. Greater than 75 minutes was spent in the care management, review of x-rays, labs, and medication for this patient today. Karol Banks MD [facility] # [id number] MARILUZ
[2017-10-25] MEDS ORDERED: Morphine 2 mg/ml ISec IVP PRN (23:56)
[2017-10-26] MEDS: Sodium Chloride 0.9% 1,000 ML IV SCH ×2 (01:20→13:30)
[2017-10-26] MEDS: Morphine 2 mg/ml ISec IVP PRN (03:17)
[2017-10-26] MEDS: Pantoprazole 40mg/100ml IVPB 40 MG/100 ML BAG IVPB SCH (05:07)
[2017-10-26 06:40] LABS: MEAN CELL VOLUME 88.9 fl (80.0-105.0); MEAN CORPUSCULAR HEMOGLOBIN 29.2 pg (25.0-35.0); MEAN CORPUSCULAR HGB CONC 32.9 g/dl (31.0-37.0); MEAN PLATELET VOLUME 8.9 fl (7.0-11.0); RBC 3.42 [, 10^6/uL] (3.5-6.1); RED CELL DISTRIBUTION WIDTH 14.4 % (11.5-14.5); WHITE BLOOD COUNT 7.8 [, 10^3/ul] (4.5-11.0)
[2017-10-26 07:27] LABS: BLOOD UREA NITROGEN < 2 mg/dL (7-21); CALCIUM 8.3 mg/dL (8.4-10.5); GFR AFRICAN-AMERICAN > 60; GFR NON-AFRICAN AMERICAN > 60
--- NOTE | 2017-10-26 08:25 | CON ---
DATE: 10/25/2017 ADDENDUM I have personally examined this patient. I have reviewed all her laboratory data including her CT scan. I agree with Renuka Nevarez' assessment and recommendations. The patient has been having epigastric pain and discomfort for several weeks associated with nausea and vomiting. She is known to have liver metastasis from colon cancer and she has received one course of palliative chemotherapy. She did have an endoscopy several months ago which revealed nonspecific gastritis. Recommendations are to continue pain medications as needed. Her long-term prognosis is poor. Francisco Clemente MD
[2017-10-26] MEDS ORDERED: Potassium Chloride 20 mEq ER Tab PO SCH (10:00)
[2017-10-26] MEDS ORDERED: Magnesium Sulfate 2 GM in Sodium Chloride 0.9% 100 ML IVPB ONE (11:48)
--- NOTE | 2017-10-26 12:13 | CP.PCM.PN ---
Subjective - Date & Time of Evaluation Date of Evaluation: 10/26/17 Time of Evaluation: 12:09 - Subjective Subjective: Patient has been seen and examined. No overnight events reported. Continues to complain of abdominal pain that has improved since yesterday. Currently denies any nausea and vomiting. She had no B.M within the last 24 hours. She is having flatus. Objective - Vital Signs/Intake and Output Vital Signs (last 24 hours): Temp Pulse Resp BP Pulse Ox 98 F 94 H 20 113/78 99 10/25/17 16:00 10/25/17 16:00 10/25/17 16:00 10/25/17 16:00 10/25/17 16:00 Intake and Output: 10/26/17 10/26/17 06:59 18:59 Intake Total 1740 0 Balance 1740 0 - Medications Medications: Current Medications Acetaminophen (Tylenol 325mg Tab) 650 mg PO Q6H PRN PRN Reason: Fever >100.4 F Dexamethasone (Decadron) 4 mg PO BID [facility] Sodium Chloride (Sodium Chloride 0.9%) 1,000 mls @ 100 mls/hr IV .Q10H [facility] Last Admin: 10/26/17 01:20 Dose: 100 mls/hr Pantoprazole Sodium (Protonix 40mg Ivpb) 40 mg in 100 mls @ 200 mls/hr IVPB 0600 [facility] Last Admin: 10/26/17 05:07 Dose: 200 mls/hr Magnesium Sulfate 2 gm/ Sodium (Chloride) 104 mls @ 102 mls/hr IVPB ONCE ONE Stop: 10/26/17 12:49 Morphine Sulfate (Morphine) 2 mg IVP Q6H PRN PRN Reason: severe pain Last Admin: 10/26/17 03:17 Dose: 2 mg Morphine Sulfate (Morphine) 2 mg IVP ONCE PRN PRN Reason: Pain, severe (8-10) Stop: 10/26/17 23:57 Ondansetron HCl (Zofran Inj) 4 mg IVP Q4H PRN PRN Reason: Nausea/Vomiting Last Admin: 10/25/17 08:40 Dose: 4 mg Potassium Chloride (Potassium Chloride Oral Soln) 20 meq PO 1000,1400,1800 [facility] - Labs Labs: 10/26/17 06:00 10/26/17 06:00 - Additional Findings Additional findings: - Constitutional Appears: No Acute Distress - Head Exam Head Exam: ATRAUMATIC, NORMAL INSPECTION, NORMOCEPHALIC - Eye Exam Eye Exam: Normal appearance - ENT Exam ENT Exam: Mucous Membranes Dry - Respiratory Exam Respiratory Exam: NORMAL BREATHING PATTERN. absent: Respiratory Distress - Cardiovascular Exam Cardiovascular Exam: REGULAR RHYTHM - GI/Abdominal Exam GI & Abdominal Exam: Voluntary Guarding, Soft, Tenderness (periumbilical and epigastric, Improved). absent: Distended, Hernia, Rebound, Rigid - Neurological Exam Neurological exam: Alert, Oriented x3 - Psychiatric Exam Psychiatric exam: Normal Affect, Normal Mood - Skin Skin Exam: Dry, Intact Assessment and Plan - Assessment and Plan (Free Text) Assessment: 47 yo F w/ Stage IV Colon CA, abdominal pain and poor PO intake CT Abd/Pelvis (Admission): 1. Findings compatible with hepatic and lymph node metastases. 2. Mild focal dilatation at level of anastomosis, nonspecific. 3. Probable fibroid uterus. 4. Incidental/non-acute findings are described above. Plan: -CT w/ extensive liver mets significantly increased from prior -No acute surgical issues -Continue supportive care, IVF, Pain control -F/U GI Recs. -Recommend starting TPN due to inadequate PO intake. -No surgical intervention at this time. Discussed with Dr. Rajinder Covarrubias - PGY1
--- NOTE | 2017-10-26 13:20 | CP.PCM.PN ---
Subjective - Date & Time of Evaluation Date of Evaluation: 10/26/17 Time of Evaluation: 10:45 - Subjective Subjective: Seen and examined at the bedside earlier today, chart review. Patient continues to have discomfort in epigastric area also upon attempting to drink liquids. However she was able to tolerate some of her liquids, no episodes of vomiting. This complains of an epigastric tightening. She did have a bowel movement mostly due to oral contrast from CT scan as per patient. No reports of bleeding or acute overnight events. Patient currently getting potassium replacement. Denies shortness of breath or chest pain. Objective - Vital Signs/Intake and Output Vital Signs (last 24 hours): Temp Pulse Resp BP Pulse Ox 98 F 94 H 20 113/78 99 10/25/17 16:00 10/25/17 16:00 10/25/17 16:00 10/25/17 16:00 10/25/17 16:00 Intake and Output: 10/26/17 10/26/17 06:59 18:59 Intake Total 1740 0 Balance 1740 0 - Medications Medications: Current Medications Acetaminophen (Tylenol 325mg Tab) 650 mg PO Q6H PRN PRN Reason: Fever >100.4 F Dexamethasone (Decadron) 4 mg PO BID [facility] Last Admin: 10/26/17 12:07 Dose: 4 mg Sodium Chloride (Sodium Chloride 0.9%) 1,000 mls @ 100 mls/hr IV .Q10H [facility] Last Admin: 10/26/17 01:20 Dose: 100 mls/hr Pantoprazole Sodium (Protonix 40mg Ivpb) 40 mg in 100 mls @ 200 mls/hr IVPB 0600 [facility] Last Admin: 10/26/17 05:07 Dose: 200 mls/hr Morphine Sulfate (Morphine) 2 mg IVP Q6H PRN PRN Reason: severe pain Last Admin: 10/26/17 03:17 Dose: 2 mg Morphine Sulfate (Morphine) 2 mg IVP ONCE PRN PRN Reason: Pain, severe (8-10) Stop: 10/26/17 23:57 Ondansetron HCl (Zofran Inj) 4 mg IVP Q4H PRN PRN Reason: Nausea/Vomiting Last Admin: 10/25/17 08:40 Dose: 4 mg Potassium Chloride (Potassium Chloride Oral Soln) 20 meq PO 1000,1400,1800 [facility] - Labs Labs: 10/26/17 06:00 10/26/17 06:00 APTT 30.4 Seconds (25.1-36.5) 10/26/17 12:40 - Constitutional Appears: No Acute Distress - Eye Exam Eye Exam: Normal appearance. absent: Scleral icterus - ENT Exam ENT Exam: Mucous Membranes Moist - Neck Exam Neck Exam: Normal Inspection - Respiratory Exam Respiratory Exam: NORMAL BREATHING PATTERN. absent: Respiratory Distress - Cardiovascular Exam Cardiovascular Exam: +S1, +S2 - GI/Abdominal Exam GI & Abdominal Exam: Soft, Tenderness (epigastric), Normal Bowel Sounds. absent : Guarding, Organomegaly, Rebound - Extremities Exam Extremities Exam: absent: Calf Tenderness, Pedal Edema - Neurological Exam Neurological Exam: Alert, Awake, Oriented x3 - Skin Skin Exam: Dry, Warm Assessment and Plan - Assessment and Plan (Free Text) Assessment: Assessment: Abdominal pain, mainly epigastric Colon cancer with metastasis to the liver and an lymph nodes seen on CT, on chemotherapy Hypokalemia History of recent left partial colectomy H/O Diverticulosis/diverticulitis Plan: continue clear liquids Check magnesium level continue IV for hydration Continue PPI On Decadron Zofran prn pain management Monitor electrolytes and replete as necessary surgery on board oncology FU Patient continues to have epigastric discomfort, we will plan for endoscopy tomorrow 10/27/17, nothing by mouth post midnight except medications. Seen and discussed with Dr. Clemente who is covering Dr. Jimenez.
[2017-10-26] MEDS: Potassium Chloride 20 mEq/15 ml LIQ UD PO SCH ×2 (13:30→18:26)
[2017-10-27] MEDS: Sodium Chloride 0.9% 1,000 ML IV SCH (05:33)
[2017-10-27] MEDS: Pantoprazole 40mg/100ml IVPB 40 MG/100 ML BAG IVPB SCH (05:34)
--- NOTE | 2017-10-27 08:07 | PN ---
DATE: 10/26/2017 SUBJECTIVE: This 47-year-old female who was examined and her case was reviewed in detail with herself and nurse, Jazmín Carpenter, registered nurse. This case has been reviewed in detail with Dr. Fawad Anthony from Oncology who treats the patient on an outpatient level with chemotherapy for metastatic colon cancer. The patient was admitted with intractable vomiting, dehydration, and electrolyte imbalances including hypokalemia and at present states that she is having intermittent loose bowel movement. She also has low magnesium levels today. PHYSICAL EXAMINATION: VITAL SIGNS: Her ged tutor shows a normal sinus rhythm and her temperature is 98, respirations 20, pulse 94, and blood pressure 113/78 with a pulse ox of 99%. HEENT: Head: Normocephalic and atraumatic. Eyes: No icterus. Ears: Clear. Throat: Noninjected. NECK: Supple. HEART: Regular, S1 and S2. LUNGS: Clear. ABDOMEN: Obese. There is no palpable organomegaly. No rebound. No guarding. No tenderness. EXTREMITIES: No edema. SKIN: Without rash. NEUROLOGICAL: Intact. PSYCHOLOGICAL: Alert. VASCULAR: Legs warm to touch. MUSCULOSKELETAL: Marked deconditioning. LABORATORY DATA: White count 7800, hemoglobin 10, hematocrit 30, and platelets 404,000. Sodium 134, K 3.0, chloride 99, bicarb 30, BUN 2, creatinine 0.4, and random blood sugar 77. Magnesium level was low at 1.6. Bilirubin 1.1, AST 82, ALT 28, and alk phos 188. Procalcitonin level was 0.17. Urinalysis showed 0 to 2 white blood cells and no bacteria. Abdominal pelvic CT was reviewed, which showed findings compatible with hepatic and lymph node metastases, probable fibroid uterus and no evidence of obstructive bowel changes and there was no evidence of small bowel obstruction. The patient was noted to have few scattered diverticula within the colon with no diverticulitis. There is no inflammation of her appendix noted. IMPRESSION: This is a 47-year-old female with metastatic colon cancer under the Oncology care of Dr. Fawad Anthony with comorbidities of nausea, vomiting, hypokalemia, anemia of chronic disease, and deconditioning related to the above. PLAN: As discussed with nurse and the patient will be to administer potassium 20 mEq p.o. t.i.d. Earlier today, she was unable to swallow the potassium pills , so it will be given in liquid form. She is still ordered to have morphine 2 mg IV q.6 hours p.r.n. severe pain. She remains on Protonix 40 mg IV daily. She is also ordered to have 0.9 saline at 100 mL/hour. She has an order for Zofran 4 mg IV q.4 hours p.r.n. nausea and vomiting and the patient will be given a trial of a liquid diet. After lengthy discussion with Dr. Anthony, overall prognosis remains poor. He will continue to treat this patient in a compassionate supportive manner as she is scheduled for basic metabolic panel after potassium supplementation for the a.m. Blood cultures show no growth at 24 hours and all of the above was reviewed in detail with the patient and nursing. All questions were answered. Karol Banks MD MTDMelissa
[2017-10-27 08:26] LABS: BLOOD UREA NITROGEN < 2 mg/dL (7-21); CALCIUM 8.8 mg/dL (8.4-10.5); GFR AFRICAN-AMERICAN > 60; GFR NON-AFRICAN AMERICAN > 60; MAGNESIUM 2.1 mg/dL (1.7-2.2)
[2017-10-27] MEDS ORDERED: Propofol 10 mg/ml Inj (20 ML) ONE (08:31)
[2017-10-27] MEDS ORDERED: Sodium Chloride 0.9% 1,000 ML IV SCH (08:45)
[2017-10-27] MEDS: Potassium Chloride 20 mEq/15 ml LIQ UD PO SCH ×3 (10:56→19:37)
[2017-10-27 17:48] VITALS: O2SAT 97
--- NOTE | 2017-10-27 22:41 | CON ---
ONCOLOGY CONSULTATION HISTORY OF PRESENT ILLNESS: This is a 47-year-old woman with colon cancer, widely metastatic to the liver. She was status post resection of the colon CA, and I just saw her last week to start her on chemotherapy which will be the Xeloda 500 mg one tablet q.12 hours x14 days and oxaliplatin 100 mg IV infusion every three weeks. She started her first treatment couple of days ago, but now she was admitted to the hospital because of midepigastric pain. PHYSICAL EXAMINATION: SKIN: No petechiae. No bruises. HEENT: Anicteric. NODES: Nonpalpable. LUNGS: Clear. ABDOMEN: The patient's abdomen shows tenderness in the right upper quadrant midepigastric , no ascites. EXTREMITIES: No cyanosis, no edema. WEB CONSULTANT: No focal findings. I started her on Decadron 4 mg p.o. b.i.d. and this seems to be helping her appetite, the anorexia has gone, she is eating two scrambled eggs. They did an endoscopy which did not show any obstruction. She has progressive disease with anorexia and pain. She gets Percocet for the pain if she needs it, Decadron 4 mg p.o. b.i.d. She knows to take the Xeloda pills when she goes out of the hospital and she knows to see me in the office in two weeks for the second shot of her oxaliplatin. She knows this is going to be a terrible situation, we are just trying to slow down the cancer to see if we can improve the symptoms. Fawad Anthony MD
[2017-10-28] MEDS: Sodium Chloride 0.9% 1,000 ML IV SCH (05:08)
[2017-10-28] MEDS: Pantoprazole 40mg/100ml IVPB 40 MG/100 ML BAG IVPB SCH (05:09)
[2017-10-28 06:21] LABS: CALCIUM 8.9 mg/dL (8.4-10.5); GFR AFRICAN-AMERICAN > 60; GFR NON-AFRICAN AMERICAN > 60; MAGNESIUM 1.9 mg/dL (1.7-2.2)
[2017-10-28 07:30] LABS: BLOOD UREA NITROGEN < 2 mg/dL (7-21)
[2017-10-28 08:08] VITALS: BP 123/72; PULSE 62; RESP 18; TEMP 97.6
--- NOTE | 2017-10-28 08:18 | PN ---
DATE: 10/27/2017 SUBJECTIVE: This 47-year-old female was examined at her bedside and this case was reviewed in detail with herself, her nurse, Elsa, and Dr. Fawad Anthony from Oncology. The patient is status post an upper endoscopy completed yesterday that revealed esophagitis, hiatal hernia and the patient continues on IV Protonix. Of note since the patient was started on dexamethasone 4 mg p.o. b.i.d., her appetite has improved. The patient is receiving parenteral IV fluids and oral potassium and IV magnesium replacement for electrolyte imbalance, and the patient also remains weak and deconditioned in the setting of stage IV metastatic colon cancer with metastatic disease to liver and lymph node involvement as well. The patient at present denies fever, chills, chest pain or shortness of breath and remains in a normal sinus rhythm on the ekg monitor tech. PHYSICAL EXAMINATION: VITAL SIGNS: Temperature is 97.8, respirations 20, pulse 68 and blood pressure 132/80 with a pulse ox of 96%. HEENT: Head: Normocephalic, atraumatic. Eyes: No icterus. Ears: Clear. Throat: Noninjected. NECK: Supple. HEART: Regular S1, S2. LUNGS: Clear. ABDOMEN: Obese. EXTREMITIES: No edema. SKIN: Without rash. NEUROLOGICAL: Intact. PSYCHOLOGICAL: Alert. VASCULAR: Legs warm to touch. LABORATORY DATA: White count 7800, hemoglobin 10, hematocrit 30.4, platelets 104,000, PTT 30.4. Sodium 138, K 3.6, chloride 104, bicarb 27, BUN 2, creatinine 0.4, random blood sugar 135. Bilirubin 1.1, magnesium previously 1.6, now 2.1. Blood culture showed no growth at 48 hours. IMPRESSION: A 47-year-old female with stage IV metastatic colon cancer to her liver, admitted with nausea, vomiting and found to have esophagitis and hiatal hernia on endoscopy with comorbidities of anemia of chronic disease, anorexia, hypokalemia, hypomagnesemia and failure to thrive. PLAN: As discussed with nursing and Dr. Anthony from Hematology/Oncology, will be to continue IV fluids while trying to encourage p.o. intake. The patient will continue on 0.9 saline 100 mL/hour, IV Protonix 40 mg daily, potassium chloride 20 mEq p.o. t.i.d., and the patient received one dose of magnesium sulfate 2 g IV piggyback. She will continue on dexamethasone 4 mg p.o. b.i.d. She has an order for a basic metabolic panel, magnesium level, PT/INR in the a.m. She will be followed by GI and Oncology and ultimate plan will be for discharge with outpatient chemotherapy to be continued by Dr. Anthony, her oncologist. All of the above was discussed in detail with the patient at bedside. This results are reviewed with Dr. Fawad Anthony from Oncology and her nurse Elsa. Karol Banks MD MTDD
--- NOTE | 2017-10-28 10:12 | CP.PCM.PN ---
Subjective - Date & Time of Evaluation Date of Evaluation: 10/28/17 Time of Evaluation: 09:05 - Subjective Subjective: S&E at bedside this am, chart reviewed, OOB to chair with smile on face, reports that she is "feeling so much better, not sure what happened". has not had pain medication since yesterday, she was able to tolerated her solids, no N/ V or epigastric pain. Having regular Bm, no melena or BRBPR. Patient states that she would like to go home.S/P egd yesterday, no fever or chill, found nonerosive gastritis and small H/H, w/ bx. Objective - Vital Signs/Intake and Output Vital Signs (last 24 hours): Temp Pulse Resp BP Pulse Ox 97.6 F 62 18 123/72 97 10/28/17 08:08 10/28/17 08:08 10/28/17 08:08 10/28/17 08:08 10/28/17 08:08 Intake and Output: 10/28/17 10/28/17 06:59 18:59 Intake Total 1060 0 Balance 1060 0 - Medications Medications: Current Medications Acetaminophen (Tylenol 325mg Tab) 650 mg PO Q6H PRN PRN Reason: Fever >100.4 F Dexamethasone (Decadron) 4 mg PO BID [facility] Last Admin: 10/27/17 19:37 Dose: 4 mg Sodium Chloride (Sodium Chloride 0.9%) 1,000 mls @ 100 mls/hr IV .Q10H [facility] Last Admin: 10/28/17 05:08 Dose: 100 mls/hr Pantoprazole Sodium (Protonix 40mg Ivpb) 40 mg in 100 mls @ 200 mls/hr IVPB 0600 [facility] Last Admin: 10/28/17 05:09 Dose: 200 mls/hr Sodium Chloride (Sodium Chloride 0.9%) 1,000 mls @ 100 mls/hr IV .Q10H [facility] Morphine Sulfate (Morphine) 2 mg IVP Q6H PRN PRN Reason: severe pain Last Admin: 10/26/17 03:17 Dose: 2 mg Ondansetron HCl (Zofran Inj) 4 mg IVP Q4H PRN PRN Reason: Nausea/Vomiting Last Admin: 10/25/17 08:40 Dose: 4 mg Potassium Chloride (Potassium Chloride Oral Soln) 20 meq PO 1000,1400,1800 [facility] Last Admin: 10/27/17 19:37 Dose: 20 meq - Labs Labs: 10/26/17 06:00 10/28/17 05:25 APTT 30.4 Seconds (25.1-36.5) 10/26/17 12:40 - Constitutional Appears: No Acute Distress - Eye Exam Eye Exam: Normal appearance. absent: Scleral icterus - ENT Exam ENT Exam: Normal Exam - Respiratory Exam Respiratory Exam: Clear to Ausculation Bilateral, NORMAL BREATHING PATTERN. absent: Respiratory Distress - Cardiovascular Exam Cardiovascular Exam: +S1, +S2 - GI/Abdominal Exam GI & Abdominal Exam: Soft, Normal Bowel Sounds. absent: Guarding, Tenderness, Rebound - Neurological Exam Neurological Exam: Alert, Awake, Oriented x3 - Skin Skin Exam: Dry, Warm Assessment and Plan - Assessment and Plan (Free Text) Assessment: Assessment: Abdominal pain, mainly epigastric, now resolved, s/p egd nonerosive esophagitis/ small H/H, pain maybe secondary to liver metastasis. Colon cancer with metastasis to the liver and an lymph nodes seen on CT, on chemotherapy History of recent left partial colectomy H/O Diverticulosis/diverticulitis Plan: on regular soft diet continue IV for hydration Continue PPI On Decadron Zofran prn FU egd BX pain management Monitor electrolytes and replete as necessary as per oncology Seen and discussed with Dr. Clemente who is covering Dr. Jimenez
--- NOTE | 2017-10-28 16:46 | PN ---
ADDENDUM Addendum to a progress note performed by Renuka Nevarez APN. I have personally examined this patient. I have reviewed her laboratory data. The patient feels better this morning. Her epigastric pain is less. Upper endoscopy showed mild distal esophagitis. I suspect component of her abdominal pain is from liver metastasis. RECOMMENDATIONS: 1. Continue PPI. 2. The patient is stable from GI standpoint and wants to go home. She will be followed up with Dr. Fawad Anthony as an outpatient. Francisco Clemente MD
--- NOTE | 2017-10-29 00:22 | DS ---
FINAL DIAGNOSES: Abdominal pain, improved; esophagitis; hiatal hernia; metastatic colon cancer to liver; colon cancer stage IV; morbid obesity; anorexia; anemia of chronic disease; leukocytosis, improved; hyponatremia, resolved; chronically elevated liver function testing in the setting of metastatic colon cancer to liver; degenerative arthritis; history of diverticulitis; and diverticulosis. DISPOSITION: Home. FOLLOWUP: Follow up in my office in 1 week. Follow up with Dr. Fawad Anthony, Oncology in his office next week. DISCHARGE DIET: Soft bland. The patient was instructed by Dr. Anthony to continue chemotherapy as outlined by him including Xeloda 500 mg p.o. q.12 hours and she will have outpatient chemotherapy under his direction. The patient was also given a prescription for Protonix 40 mg p.o. daily #30 for recently diagnosed esophagitis. SUMMARY: This 47-year-old female who was admitted to the [facility] after presenting to the [facility] ER with abdominal pain and leukocytosis in the setting of metastatic colon cancer to her liver and lymph nodes. The patient at this point is receiving palliative treatment according to Dr. Fawad Anthony, her oncologist, she cannot be cured, but will be treated supportively with chemotherapy under his direction. The patient has had persistent anorexia and was given a short course of Decadron with good result with improvement of appetite. The patient was cultured and blood culture showed no growth at 72 hours, and at the time of discharge, she was ambulating independently and tolerating diet and medication well. Initial hypokalemia and hypomagnesemia was improved with parenteral therapy, and at discharge, temperature was 97.6, respirations 18, pulse 62, blood pressure 123/72, and pulse ox 97% on room air. Sodium 140, K 4.1, chloride 108, bicarb 27, BUN 2, creatinine 0.4, and random blood sugar 113. Magnesium level 1.9. Bilirubin 1.1, AST 82, ALT 28, and alk phos 188. White count 7800, hemoglobin 10, hematocrit 30.4, and platelets 404,000. Abdominal pelvic CT done on admission showed findings compatible with hepatic and lymph node metastases secondary to colon cancer, probable fibroid uterus and nonspecific findings. The patient was seen and cleared by Dr. Delta Calvillo for discharge. The patient was having formed bowel movements. She is discharged to home and will follow with Dr. Fawad Anthony regarding his advice for chemotherapy and pain management. The patient's overall prognosis remains poor, but stable at present. All of the above was discussed in detail with the patient and nursing at bedside. All questions were answered. Karol Banks MD MTDD
== END 2017-10-28 17:44 | disposition home or self-care (01) | DRG 436 ==
LOC: ED 14:07 → ERH 20:05 → 3RSO 21:10
PROVIDERS: ADMIT Internal Medicine; ATTEND Internal Medicine
PROC: 0DB68ZX Excision of Stomach, Via Natural or Artificial Opening Endoscopic, Diagnostic (ICD-10-PCS; 2017-10-27)
PROC: 0DB58ZX Excision of Esophagus, Via Natural or Artificial Opening Endoscopic, Diagnostic (ICD-10-PCS; principal; 2017-10-27 08:30)
DX: C78.7 Secondary malignant neoplasm of liver and intrahepatic bile duct (principal); C77.9 Secondary and unspecified malignant neoplasm of lymph node, unspecified; E87.1 Hypo-osmolality and hyponatremia; G89.3 Neoplasm related pain (acute) (chronic); K29.50 Unspecified chronic gastritis without bleeding; K20.9 Esophagitis, unspecified; K44.9 Diaphragmatic hernia without obstruction or gangrene; D25.9 Leiomyoma of uterus, unspecified; E87.6 Hypokalemia; E83.42 Hypomagnesemia; K57.90 Diverticulosis of intestine, part unspecified, without perforation or abscess without bleeding; M54.32 Sciatica, left side; D63.8 Anemia in other chronic diseases classified elsewhere; M19.90 Unspecified osteoarthritis, unspecified site; R62.7 Adult failure to thrive; E66.01 Morbid (severe) obesity due to excess calories; Z90.49 Acquired absence of other specified parts of digestive tract; Z85.038 Personal history of other malignant neoplasm of large intestine; Z68.36 Body mass index [BMI] 36.0-36.9, adult

== ENCOUNTER 2017-12-15 00:53 | Inpatient (IN) | payer BC ==
[2017-12-15 01:02] VITALS: BMI 32.9
--- NOTE | 2017-12-15 01:45 | ED PDOC ---
Arrival/HPI - General Chief Complaint: Altered Mental Status Time Seen by Provider: 12/15/17 01:07 Historian: Patient, Family (Son) - History of Present Illness Narrative History of Present Illness (Text): 12/15/17 01:43 Amita Valencia is a 47 year old female, whose past medical history includes colon cancer with metastasis to liver, diverticulosis/diverticulitis, chronic gastritis, left partial colectomy, who presents to the Emergency department complaining of acute on chronic abdominal pain and back pain. Patient reports associated nausea and vomiting. As person, over the past 3 days, patient appeared a bit confused at times. Patient denies any fever, chills, chest pain, shortness of breath, diarrhea, urinary symptoms, neck pain, headache, dizziness , or any other complaints. Symptom Onset: Gradual Symptom Course: Unchanged Activities at Onset: Light Context: Home Past Medical History - Provider Review Nursing Documentation Reviewed: Yes - Infectious Disease Hx of Infectious Diseases: None - Tetanus Immunization Tetanus Immunization: Unknown - Cardiac Hx Cardiac Disorders: No Hx Pacemaker: No - Pulmonary Hx Respiratory Disorders: No - Neurological Hx Neurological Disorder: No Hx Paralysis: No - HEENT Hx HEENT Disorder: No - Renal Hx Renal Disorder: No - Endocrine/Metabolic Hx Endocrine Disorders: No - Hematological/Oncological Hx Blood Disorders: Yes Hx Blood Transfusions: No Hx Cancer: Yes (liver, colon) Hx Chemotherapy: Yes - Integumentary Hx Dermatological Disorder: No - Musculoskeletal/Rheumatological Hx Musculoskeletal Disorders: Yes Hx Falls: Yes - Gastrointestinal Hx Gastrointestinal Disorders: Yes (COLON CA; LIVER CA ?WITH METS) Hx Constipation: Yes Hx Diverticulitis: Yes - Genitourinary/Gynecological Hx Genitourinary Disorders: No Other/Comment: colon ca - Psychiatric Hx Psychophysiologic Disorder: No Hx Emotional Abuse: No Hx Physical Abuse: No Hx Substance Use: No - Surgical History Other/Comment: COLON SX. ABDOMINAL SX - Anesthesia Hx Anesthesia Reactions: No Hx Malignant Hyperthermia: No - Suicidal Assessment Feels Threatened In Home Enviroment: No Family/Social History - Physician Review Nursing Documentation Reviewed: Yes Family/Social History: Unknown Family HX Smoking Status: Never Smoked Hx Alcohol Use: Yes (social user) Hx Substance Use: No Allergies/Home Meds Allergies/Adverse Reactions: Allergies No Known Allergies Allergy (Verified 12/15/17 12:04) Home Medications: Home Meds Medication Instructions Recorded Confirmed Capecitabine 2 tab PO BID 12/15/17 12/15/17 Dexamethasone [Decadron] 4 mg PO DAILY 12/15/17 12/15/17 Pantoprazole Sodium [Protonix] 40 mg PO DAILY 12/15/17 12/15/17 Review of Systems - Physician Review All systems were reviewed & negative as marked: Yes - Review of Systems Constitutional: Normal. absent: Fevers Eyes: Normal ENT: Normal Respiratory: Normal. absent: SOB, Cough Cardiovascular: Normal. absent: Chest Pain Gastrointestinal: Abdominal Pain, Nausea, Vomiting. absent: Diarrhea Genitourinary Female: Normal. absent: Dysuria, Frequency, Hematuria, Urine Output Changes Musculoskeletal: Back Pain. absent: Neck Pain Skin: Normal Neurological: Other (+confusion). absent: Headache, Dizziness Endocrine: Normal Hemo/Lymphatic: Normal Psychiatric: Normal Physical Exam Vital Signs Reviewed: Yes Vital Signs Temp Pulse Resp BP Pulse Ox 12/15/17 11:35 106 H 20 121/80 98 12/15/17 09:30 106 H 20 148/90 97 12/15/17 07:43 98.5 F 112 H 18 121/73 96 12/15/17 05:59 108 H 16 145/75 95 12/15/17 04:57 98.2 F 108 H 16 127/92 H 96 12/15/17 03:40 113 H 16 127/78 97 12/15/17 02:56 99.0 F 12/15/17 01:02 99.2 F 123 H 20 109/70 98 Temperature: Afebrile Blood Pressure: Normal Pulse: Tachycardic Respiratory Rate: Normal Appearance: Positive for: Well-Appearing, Non-Toxic, Comfortable Pain Distress: None Mental Status: Positive for: Alert and Oriented X 3 Finger Stick Blood Glucose: 80 - Systems Exam Head: Present: Atraumatic, Normocephalic Pupils: Present: PERRL Extroacular Muscles: Present: EOMI Conjunctiva: Present: Normal Mouth: Present: Moist Mucous Membranes Neck: Present: Normal Range of Motion Respiratory/Chest: Present: Clear to Auscultation, Good Air Exchange. No: Respiratory Distress, Accessory Muscle Use Cardiovascular: Present: Regular Rate and Rhythm, Normal S1, S2. No: Murmurs Abdomen: Present: Tenderness (Tenderness to mid and lower abdomen), Normal Bowel Sounds. No: Distention, Peritoneal Signs Back: Present: Normal Inspection Upper Extremity: Present: Normal Inspection. No: Cyanosis, Edema Lower Extremity: Present: Normal Inspection. No: Edema Neurological: Present: GCS=15, CN II-XII Intact, Speech Normal Skin: Present: Warm, Dry, Normal Color. No: Rashes Psychiatric: Present: Alert, Oriented x 3, Normal Insight, Normal Concentration Medical Decision Making ED Course and Treatment: 12/15/17 01:44 Impression: 47 year old female complaining of acute on chronic abdominal pain, back pain, nausea, and vomiting. Plan: -- CT Abdomen and Pelvis w/o contrast -- CT Head w/o contrast -- EKG -- Chest X-ray -- Labs, lipase -- Reassess and disposition Prior Visits: Notes and results from previous visits were reviewed. Progress Notes: Reviewed EKG, sinus tachycardia at 129 bpm. Short DC. Inferior infarct. Non- specific ST/T wave changes. 12/15/17 02:48 Labs reviewed. WBC: 14.3, lactate: 8.0. Pt tachycardic. Code Sepsis called. 12/15/17 03:50 Chest X-ray reviewed, shows poor inspiratory effort, no acute processes. 12/15/17 04:22 CT Abdomen and Pelvis shows: The liver is enlarged and heterogeneous containing innumerable lesions consistent with the patient's known metastatic disease. The hepatic lesions are better delineated on the prior study secondary to contrast administation. No gross abnormality of the spleen, pancreas, kidneys. Evidence of surgery in the left colon. Focal dilation with intraluminal stool at the anastomoses similar to prior. There are small soft tissue nodules adjacent to the spleen and left kidney similar to prior likely lymph nodes. Multiple small periaortic lymph nodes are present. Again seen are lymph nodes within the cardio phrenic angle presumably representing metastatic disease. There is a small amount of free fluid in the abdomen and pelvis increased since prior. Heterogeneous uterus possibly fibroids. IMPRESSION: Findings similar to prior. Again seen is evidence of left colonic surgery and focal dilation with stool at the anastomosis. Again seen is evidence of metastases to the liver and lymph nodes as above. Small amount of free fluid in the abdomen and pelvis new since prior. 12/15/17 04:28 CT Head shows: No intracranial hemorrhage. No intracranial edema. No evidence of infarct. The sinuses and mastoid air cells are clear. IMPRESSION: No acute findings. 12/15/17 04:[address] Matt, who is aware and agrees to evaluate pt for possible ICU admission. 12/15/17 04:[address] Banks, who is aware and agrees with plan. Accepts pt in to her service. Requests Dr. Jimenez on consult. 12/15/17 04:[address] Matt, present in ED to evaluate pt. Pt will be admitted to Telemetry for sepsis and colon cancer with metastasis. - Lab Interpretations Lab Results: 12/15/17 02:19 12/15/17 02:19 Lab Results 12/15/17 02:55: Urine Color Dark yellow, Urine Appearance Clear, Urine pH 5.5, Ur Specific [place] >= 1.030, Urine Protein 100 H, Urine Glucose (UA) Negative, Urine Ketones Trace H, Urine Blood Negative, Urine Nitrate Negative, Urine Bilirubin Large H, Urine Urobilinogen 1.0 H, Ur Leukocyte Esterase Negative, Urine RBC 0 - 2, Urine WBC 0 - 2, Ur Epithelial Cells 0 - 2 12/15/17 02:19: Direct Bilirubin 5.0 H 12/15/17 02:19: pO2 109 H, VBG pH 7.44 H, VBG pCO2 36.0 L, VBG HCO3 24.5, VBG Total CO2 25.6, VBG O2 Sat (Calc) 100.0 H, VBG Base Excess 0.6, VBG Potassium 3.5 L, Sodium 134.0, Chloride 95.0 L, Glucose 83, Lactate 8.0 H*, FiO2 21.0, Venous Blood Potassium 3.5 L 12/15/17 02:19: WBC 14.3 H D, RBC 3.42 L, Hgb 10.8 L, Hct 32.8 L, MCV 95.9 D, MCH 31.6, MCHC 32.9, RDW 19.6 H, Plt Count 236, MPV 9.3 12/15/17 02:19: Sodium 134, Chloride 95 L, Potassium 3.3 L, Carbon Dioxide 24, Anion Gap 19, BUN 11, Creatinine 0.7, Est GFR ( Amer) > 60, Est GFR (Non- Af Amer) > 60, Random Glucose 87, Calcium 9.4, Total Bilirubin 6.4 H, AST 242 H D, ALT 58 H, Alkaline Phosphatase 261 H D, Total Protein 6.8, Albumin 2.8 L, Globulin 4.0, Albumin/Globulin Ratio 0.7 L, Lipase 33 12/15/17 01:08: POC Glucose (mg/dL) 80 I have reviewed the lab results: Yes - RAD Interpretation Radiology Orders: 12/15/17 02:01 HEAD W/O CONTRAST [CT] Stat CHEST PORTABLE [RAD] Stat 12/15/17 02:02 ABD & PELVIS W/O PO OR IV CONT [CT] Stat [employer] Finance Manager: ED Physician - EKG Interpretation Interpreted by ED Physician: Yes Type: 12 lead EKG - Medication Orders Current Medication Orders: Acetaminophen (Tylenol 325mg Tab) 650 mg PO Q6H PRN PRN Reason: Fever >100.4 F Sodium Chloride (Sodium Chloride 0.9%) 1,000 mls @ 100 mls/hr IV .Q10H STA Stop: 12/15/17 14:53 Last Admin: 12/15/17 06:05 Dose: 100 mls/hr eMAR Start Stop Document 12/15/17 06:05 CNR (Rec: 12/15/17 06:05 CNR [facility] [id number]) Intravenous Solution Start Date 12/15/17 Start Time 06:05 Ceftriaxone Sodium (Rocephin 1 Gram Ivpb) 1 gm in 100 mls @ 100 mls/hr IVPB DAILY JEANCARLOS PRN Reason: Protocol Metronidazole (Flagyl) 500 mg in 100 mls @ 100 mls/hr IV Q8 JEANCARLOS PRN Reason: Protocol Famotidine (Pepcid 20mg/50ml Premix) 20 mg in 50 mls @ 100 mls/hr IVPB Q12 JEANCARLOS Morphine Sulfate (Morphine) 2 mg IVP Q6H PRN PRN Reason: severe pain Last Admin: 12/15/17 12:27 Dose: 2 mg IVP Administration Document 12/15/17 12:27 VIKAS (Rec: 12/15/17 12:27 [id number]) Charges for Administration # of IVP Administrations 1 Ondansetron HCl (Zofran Inj) 4 mg IVP Q6H PRN PRN Reason: Nausea/Vomiting Discontinued Medications Hydromorphone HCl (Dilaudid) 1 mg IVP STAT STA Stop: 12/15/17 02:55 Last Admin: 12/15/17 03:24 Dose: 1 mg MAR Pain Assessment Document 12/15/17 03:24 CNR (Rec: 12/15/17 03:24 CNR [id number]) Pain Reassessment Is this a pain reassessment? Yes Location Pain Location Body Site Back Description Description Constant IVP Administration Document 12/15/17 03:24 CNR (Rec: 12/15/17 03:24 CNR [id number]) Charges for Administration # of IVP Administrations 1 Sodium Chloride (Sodium Chloride 0.9%) 1,000 mls @ 999 mls/hr IV .Q1H1M STA Stop: 12/15/17 03:04 Last Admin: 12/15/17 02:22 Dose: 999 mls/hr eMAR Start Stop Document 12/15/17 02:22 CNR (Rec: 12/15/17 02:22 CNR [id number]) Intravenous Solution Start Date 12/15/17 Start Time 02:22 Sodium Chloride (Sodium Chloride 0.9%) 1,600 mls @ 999 mls/hr IV .Q1H37M STA Stop: 12/15/17 04:23 Last Admin: 12/15/17 03:38 Dose: 999 mls/hr eMAR Start Stop Document 12/15/17 03:38 CNR (Rec: 12/15/17 03:38 CNR [id number]) Intravenous Solution Start Date 12/15/17 Start Time 03:38 Ceftriaxone Sodium (Rocephin 1 Gram Ivpb) 1 gm in 100 mls @ 200 mls/hr IV ONCE STA PRN Reason: Protocol Stop: 12/15/17 03:20 Last Admin: 12/15/17 03:26 Dose: 200 mls/hr eMAR Start Stop Document 12/15/17 03:26 CNR (Rec: 12/15/17 03:27 CNR [id number]) Intravenous Solution Start Date 12/15/17 Start Time 03:27 End Date 12/15/17 End time 03:57 Total Infusion Time 30 Vancomycin HCl (Vancomycin 1gm) 1 gm in 250 mls @ 167 mls/hr IVPB STAT STA PRN Reason: Protocol Stop: 12/15/17 04:21 Last Admin: 12/15/17 04:08 Dose: 167 mls/hr eMAR Start Stop Document 12/15/17 04:08 CNR (Rec: 12/15/17 04:09 CNR [id number]) Intravenous Solution Start Date 12/15/17 Start Time 04:09 End Date 12/15/17 End time 05:39 Total Infusion Time 90 Ondansetron HCl (Zofran Inj) 4 mg IVP ONCE ONE Stop: 12/15/17 02:55 Last Admin: 12/15/17 03:24 Dose: 4 mg IVP Administration Document 12/15/17 03:24 CNR (Rec: 12/15/17 03:24 CNR [id number]) Charges for Administration # of IVP Administrations 1 Potassium Chloride (Potassium Chloride Oral Soln) 20 meq PO STAT STA Stop: 12/15/17 04:18 Last Admin: 12/15/17 04:25 Dose: 20 meq - Scribe Statement The provider has reviewed the documentation as recorded by the Heber Hamilton Provider Scribe Attestation: All medical record entries made by the Heber were at my direction and personally dictated by me. I have reviewed the chart and agree that the record accurately reflects my personal performance of the history, physical exam, medical decision making, and the department course for this patient. I have also personally directed, reviewed, and agree with the discharge instructions and disposition. Disposition/Present on Arrival - Present on Arrival Any Indicators Present on Arrival: No History of DVT/PE: No History of Uncontrolled Diabetes: No Urinary Catheter: No History of Decub. Ulcer: No History Surgical Site Infection Following: None - Disposition Have Diagnosis and Disposition been Completed?: Yes Diagnosis: Colon cancer metastasized to liver, Abdominal pain, Sepsis Disposition: HOSPITALIZED Disposition Time: 04:55 Patient Plan: Admission Condition: STABLE
[2017-12-15] MEDS ORDERED: Sodium Chloride 0.9% 1,000 ML IV STA ×2 (02:04→04:54)
[2017-12-15 02:34] LABS: HEMOGLOBIN 10.8 g/dL (12.0-16.0); MEAN CELL VOLUME 95.9 fl (80.0-105.0); MEAN CORPUSCULAR HEMOGLOBIN 31.6 pg (25.0-35.0); MEAN CORPUSCULAR HGB CONC 32.9 g/dl (31.0-37.0); MEAN PLATELET VOLUME 9.3 fl (7.0-11.0); RBC 3.42 10^6/uL (3.5-6.1); RED CELL DISTRIBUTION WIDTH 19.6 % (11.5-14.5); WHITE BLOOD COUNT 14.3 10^3/ul (4.5-11.0)
[2017-12-15 02:40] LABS: VENOUS BLOOD GAS BASE EXCESS 0.6 mmol/L (0.0-2.0); VENOUS BLOOD GAS PO2 109 mm/Hg (30-55); VENOUS BLOOD PH 7.44 (7.32-7.43)
[2017-12-15 02:41] LABS: ALB/GLOB RATIO 0.7 (1.1-1.8); ALBUMIN 2.8 g/dL (3.0-4.8); ALT/SGPT 58 U/L (7-56); AST/SGOT 242 U/L (14-36); BLOOD UREA NITROGEN 11 mg/dL (7-21); CALCIUM 9.4 mg/dL (8.4-10.5); GFR AFRICAN-AMERICAN > 60; GFR NON-AFRICAN AMERICAN > 60; LIPASE 33 U/L (23-300)
[2017-12-15] MEDS ORDERED: cefTRIAXone 1 gm 1 GM/100 ML BAG IV STA (02:51)
[2017-12-15] MEDS ORDERED: Vancomycin 1gm in NS 250ml 1 GM/250 ML BAG IVPB STA (02:52)
[2017-12-15] MEDS ORDERED: HYDROmorphone 1 mg/ml ISec IVP STA (02:54)
[2017-12-15] MEDS ORDERED: Potassium Chloride 20 mEq/15 ml LIQ UD PO STA (04:17)
--- NOTE | 2017-12-15 04:20 | CT ---
EXAM: CT Abdomen and Pelvis Without Intravenous Contrast EXAM DATE/TIME: 12/15/2017 2:02 AM CLINICAL HISTORY: 47 years old, female; Pain; Abdominal pain; Additional info: Pain HX. Colon ca with mets TECHNIQUE: Axial computed tomography images of the abdomen and pelvis without intravenous contrast. All CT scans at this facility use one or more dose reduction techniques, viz.: automated exposure control; ma/kV adjustment per patient size (including targeted exams where dose is matched to indication; i.e. head); or iterative reconstruction technique. Coronal and sagittal reformatted images were created and reviewed. COMPARISON: CT - ABD PELVIS PO IV CONTRAST 2017-10-24 18:31 FINDINGS: The liver is enlarged and heterogeneous containing innumerable lesions consistent with the patient's known metastatic disease. The hepatic lesions are better delineated on the prior study secondary to contrast administation. No gross abnormality of the spleen, pancreas, kidneys. Evidence of surgery in the left colon. Focal dilation with intraluminal stool at the anastomoses similar to prior. There are small soft tissue nodules adjacent to the spleen and left kidney similar to prior likely lymph nodes. Multiple small periaortic lymph nodes are present. Again seen are lymph nodes within the cardio phrenic angle presumably representing metastatic disease. There is a small amount of free fluid in the abdomen and pelvis increased since prior. Heterogeneous uterus possibly fibroids. IMPRESSION: Findings similar to prior. Again seen is evidence of left colonic surgery and focal dilation with stool at the anastomosis. Again seen is evidence of metastases to the liver and lymph nodes as above. Small amount of free fluid in the abdomen and pelvis new since prior.
--- NOTE | 2017-12-15 04:28 | CT ---
EXAM: CT Head Without Intravenous Contrast EXAM DATE/TIME: 12/15/2017 2:01 AM CLINICAL HISTORY: 47 years old, female; Signs and symptoms; Altered mental status/memory loss; Confusion or disorientation TECHNIQUE: Axial computed tomography images of the head/brain without intravenous contrast. All CT scans at this facility use one or more dose reduction techniques, viz.: automated exposure control; ma/kV adjustment per patient size (including targeted exams where dose is matched to indication; i.e. head); or iterative reconstruction technique. Coronal and sagittal reformatted images were created and reviewed. COMPARISON: No relevant prior studies available. FINDINGS: No intracranial hemorrhage. No intracranial edema. No evidence of infarct. The sinuses and mastoid air cells are clear. IMPRESSION: No acute findings. Please note that metastatic disease could be better detected with contrast CT or MR.
[2017-12-15 04:48] LABS: PH,URINE 5.5 (4.7-8.0); URINE BILIRUBIN LARGE (NEGATIVE); URINE BLOOD NEGATIVE (NEGATIVE); URINE GLUCOSE (UA) NEGATIVE (NEGATIVE); URINE LEUKOCYTE ESTERASE NEGATIVE Leu/uL (NEGATIVE); URINE PROTEIN 100 mg/dL (<30 mg/dL)
[2017-12-15 04:54] LABS: URINE APPEARANCE CLEAR (CLEAR); URINE COLOR DARK YELLOW (YELLOW)
[2017-12-15 04:56] LABS: URINE RBC 0 - 2 /hpf (0-2)
[2017-12-15 04:57] LABS: URINE EPITHELIAL CELLS 0 - 2 /hpf (0-5); URINE WBC 0 - 2 /hpf (0-6)
--- NOTE | 2017-12-15 05:27 | CP.PCM.CON ---
<Mook Torres - Last Filed: 12/15/17 05:28> History of Present Illness - History of Present Illness History of Present Illness: 47 year old female with past medical history of colon cancer with metastasis to the liver, diverticulitis, obesity, and chronic gastritis presents to the hospital for 3 day history of worsening abdominal pain. Patient was very lethargic during exam and unable to answer all questions. Much of history provided is from prior medical records. Patient has abdominal pain at baseline, but it is now much worse in the RLQ. Patient very lethargic on exam. Responds to painful stimuli. ROS unobtainable due to altered mental status. PMH: Colon Cancer with metastasis to the liver, diverticulosis/diverticulitis, obesity, chronic gastritis Surgical history: left partial colectomy, Port-A-Cath Social history: Denies smoking, alcohol, or illicit drug use FAMILY HISTORY: mother had bone cancer Allergies: NKDA Medications: Reviewed, as per MAR Review of Systems - Review of Systems Systems not reviewed;Unavailable: Altered Mental Status Past Patient History - Infectious Disease Hx of Infectious Diseases: None - Tetanus Immunizations Tetanus Immunization: Unknown - Past Social History Smoking Status: Never Smoked - CARDIAC Hx Cardiac Disorders: No Hx Pacemaker: No - PULMONARY Hx Respiratory Disorders: No - NEUROLOGICAL Hx Neurological Disorder: No Hx Paralysis: No - HEENT Hx HEENT Problems: No - RENAL Hx Chronic Kidney Disease: No - ENDOCRINE/METABOLIC Hx Endocrine Disorders: No - HEMATOLOGICAL/ONCOLOGICAL Hx Blood Disorders: Yes Hx Blood Transfusions: No Hx Cancer: Yes (liver, colon) Hx Chemotherapy: Yes - INTEGUMENTARY Hx Dermatological Problems: No - MUSCULOSKELETAL/RHEUMATOLOGICAL Hx Musculoskeletal Disorders: Yes Hx Falls: Yes - GASTROINTESTINAL Hx Gastrointestinal Disorders: Yes (COLON CA; LIVER CA ?WITH METS) Hx Constipation: Yes Hx Diverticulitis: Yes - GENITOURINARY/GYNECOLOGICAL Hx Genitourinary Disorders: No Other/Comment: colon ca - PSYCHIATRIC Hx Psychophysiologic Disorder: No Hx Emotional Abuse: No Hx Physical Abuse: No Hx Substance Use: No - SURGICAL HISTORY Other/Comment: COLON SX. ABDOMINAL SX - ANESTHESIA Hx Anesthesia Reactions: No Hx Malignant Hyperthermia: No Meds Allergies/Adverse Reactions: Allergies Allergy/AdvReac Type Severity Reaction Status Date / Time No Known Allergies Allergy Verified 07/05/17 19:58 - Medications Medications: Current Medications Sodium Chloride (Sodium Chloride 0.9%) 1,000 mls @ 100 mls/hr IV .Q10H STA Stop: 12/15/17 14:53 Physical Exam - Constitutional Appears: Toxic, No Acute Distress, Confused - Head Exam Head Exam: ATRAUMATIC, NORMAL INSPECTION, NORMOCEPHALIC - ENT Exam ENT Exam: Mucous Membranes Dry, Normal Exam - Neck Exam Neck exam: Positive for: Normal Inspection. Negative for: Lymphadenopathy - Respiratory Exam Respiratory Exam: Decreased Breath Sounds, NORMAL BREATHING PATTERN. absent: Rales, Rhonchi, Wheezes - Cardiovascular Exam Cardiovascular Exam: Tachycardia, +S1, +S2 - GI/Abdominal Exam GI & Abdominal Exam: Distended, Firm, Normal Bowel Sounds, Tenderness. absent: Rebound - Extremities Exam Extremities exam: Positive for: normal inspection. Negative for: calf tenderness, pedal edema - Neurological Exam Additional comments: Lethargic, unable to completely perform neuro exam - Skin Skin Exam: Dry, Intact, Normal Color Results - Vital Signs Recent Vital Signs: Last Vital Signs Temp 98.2 F 12/15/17 04:57 Pulse 108 H 12/15/17 04:57 Resp 16 12/15/17 04:57 BP 127/92 H 12/15/17 04:57 Pulse Ox 96 12/15/17 04:57 - Labs Result Diagrams: 12/15/17 02:19 12/15/17 02:19 Labs: Laboratory Results - last 24 hr 12/15/17 12/15/17 12/15/17 01:08 02:19 02:19 WBC 14.3 H D RBC 3.42 L Hgb 10.8 L Hct 32.8 L MCV 95.9 D MCH 31.6 MCHC 32.9 RDW 19.6 H Plt Count 236 MPV 9.3 pO2 VBG pH VBG pCO2 VBG HCO3 VBG Total CO2 VBG O2 Sat (Calc) VBG Base Excess VBG Potassium Sodium 134 Chloride 95 L Glucose Lactate FiO2 Potassium 3.3 L Carbon Dioxide 24 Anion Gap 19 BUN 11 Creatinine 0.7 Est GFR ( Amer) > 60 Est GFR (Non-Af Amer) > 60 POC Glucose (mg/dL) 80 Random Glucose 87 Calcium 9.4 Total Bilirubin 6.4 H Direct Bilirubin AST 242 H D ALT 58 H Alkaline Phosphatase 261 H D Total Protein 6.8 Albumin 2.8 L Globulin 4.0 Albumin/Globulin Ratio 0.7 L Lipase 33 Venous Blood Potassium Urine Color Urine Appearance Urine pH Ur Specific [place] Urine Protein Urine Glucose (UA) Urine Ketones Urine Blood Urine Nitrate Urine Bilirubin Urine Urobilinogen Ur Leukocyte Esterase Urine RBC Urine WBC Ur Epithelial Cells 12/15/17 12/15/17 12/15/17 02:19 02:19 02:55 WBC RBC Hgb Hct MCV MCH MCHC RDW Plt Count MPV pO2 109 H VBG pH 7.44 H VBG pCO2 36.0 L VBG HCO3 24.5 VBG Total CO2 25.6 VBG O2 Sat (Calc) 100.0 H VBG Base Excess 0.6 VBG Potassium 3.5 L Sodium 134.0 Chloride 95.0 L Glucose 83 Lactate 8.0 H* FiO2 21.0 Potassium Carbon Dioxide Anion Gap BUN Creatinine Est GFR ( Amer) Est GFR (Non-Af Amer) POC Glucose (mg/dL) Random Glucose Calcium Total Bilirubin Direct Bilirubin 5.0 H AST ALT Alkaline Phosphatase Total Protein Albumin Globulin Albumin/Globulin Ratio Lipase Venous Blood Potassium 3.5 L Urine Color Dark yellow Urine Appearance Clear Urine pH 5.5 Ur Specific [place] >= 1.030 Urine Protein 100 H Urine Glucose (UA) Negative Urine Ketones Trace H Urine Blood Negative Urine Nitrate Negative Urine Bilirubin Large H Urine Urobilinogen 1.0 H Ur Leukocyte Esterase Negative Urine RBC 0 - 2 Urine WBC 0 - 2 Ur Epithelial Cells 0 - 2 Assessment & Plan - Assessment and Plan (Free Text) Plan: 47 year old female with past medical history of colon cancer with metastasis to the liver, diverticulitis, obesity, and chronic gastritis presents to the hospital for 3 day history of worsening abdominal pain. Patient is hemodynamically stable and does not meet ICU level of acute care at this time. Patient appears toxic, but in no acute distress. Please reconsult as needed. At this time will recommend: Empiric antibiotic coverage with Vanco/Zosyn Blood/urine cultures Procalcitonin ID consult IV albumin Ammonia level Brian PGY-2 <Vernell RODRIGUEZ,Sarabjit - Last Filed: 12/15/17 06:24> Meds - Medications Medications: Current Medications Sodium Chloride (Sodium Chloride 0.9%) 1,000 mls @ 100 mls/hr IV .Q10H STA Stop: 12/15/17 14:53 Last Admin: 12/15/17 06:05 Dose: 100 mls/hr Results - Vital Signs Recent Vital Signs: Last Vital Signs Temp 98.2 F 12/15/17 04:57 Pulse 108 H 12/15/17 05:59 Resp 16 12/15/17 05:59 BP 145/75 12/15/17 05:59 Pulse Ox 95 12/15/17 05:59 - Labs Result Diagrams: 12/15/17 02:19 12/15/17 02:19 Labs: Laboratory Results - last 24 hr 12/15/17 05:30 pO2 140 H VBG pH 7.37 VBG pCO2 41.0 VBG HCO3 23.7 VBG Total CO2 25.0 VBG O2 Sat (Calc) 100.4 H VBG Base Excess -1.5 L VBG Potassium 3.9 Sodium 134.0 Chloride 100.0 Glucose 81 Lactate 6.0 H* FiO2 21.0 Venous Blood Potassium 3.9 Attending/Attestation - Attestation I have personally seen and examined this patient.: Yes I have fully participated in the care of the patient.: Yes I have reviewed all pertinent clinical information: Yes Notes (Text): -I agree with the above ICU consult note completed by the resident physician.
[2017-12-15 05:56] LABS: VENOUS BLOOD GAS BASE EXCESS -1.5 mmol/L (0.0-2.0); VENOUS BLOOD GAS PO2 140 mm/Hg (30-55); VENOUS BLOOD PH 7.37 (7.32-7.43)
--- NOTE | 2017-12-15 08:41 | PCM.SEPTIC ---
Sepsis Progress Note - Reassessment Type Date of Evaluation: 12/15/17 Time of Evaluation: 08:45 Reassessment Type: Non-invasive reassessment - Non Invasive Reassessment Were the most recent vital sign reviewed: Yes Vital Sign (Latest): Temp Pulse Resp BP Pulse Ox 98.5 F 112 H 18 121/73 96 12/15/17 07:43 12/15/17 07:43 12/15/17 07:43 12/15/17 07:43 12/15/17 07:43 Cardiovascular: Yes: Tachycardia Respiratory: Yes: Normal Breath Sounds Capillary Refill: Normal (Less than 2 sec) Pulses: Normal Dorsalis Pedis Skin: Normal Color
--- NOTE | 2017-12-15 09:19 | RAD ---
HISTORY: Abdominal pain COMPARISON: 07/05/2017. FINDINGS: The right MediPort terminates at the cavoatrial junction. LUNGS: The lungs are clear. PLEURA: No significant pleural effusion identified, no pneumothorax apparent. CARDIOVASCULAR: Normal. OSSEOUS STRUCTURES: No significant abnormalities. VISUALIZED UPPER ABDOMEN: Normal. OTHER FINDINGS: None. IMPRESSION: No acute findings.
[2017-12-15] MEDS ORDERED: cefTRIAXone 1 gm 1 GM/100 ML BAG IVPB SCH (12:00)
[2017-12-15] MEDS: Morphine 5 MG/ML SYRINGE IVP PRN ×3 (12:20→15:31)
[2017-12-15] MEDS: metroNIDAZOLE IV 500 mg/100 ml 500 MG/100 ML BAG IV SCH ×2 (13:56→22:13)
[2017-12-15] MEDS ORDERED: Pneumococcal 23-Valent Vaccine IM ONE (15:03)
[2017-12-15] MEDS ORDERED: Influenza Vaccine 60 mcg/0.5 mL SYR (4YR UP) IM ONE (15:03)
--- NOTE | 2017-12-15 17:51 | CARD ---
APPROVED REPORT EKG Measurement Heart [id number] <Conclusion> Sinus tachycardia with short IL Inferior infarct, age undetermined Possible Anterior infarct, age undetermined Abnormal ECG
[2017-12-15] MEDS ORDERED: Dextrose 5%/0.9% NS 1,000 ML IV SCH (19:45)
[2017-12-15] MEDS ORDERED: Iohexol 350 MG/100 ML VIAL ONE (20:06)
--- NOTE | 2017-12-15 21:58 | CT ---
EXAM: CT Angiography Chest With Intravenous Contrast EXAM DATE/TIME: 12/15/2017 7:36 PM CLINICAL HISTORY: 47 years old, female; Signs and symptoms; Other: Tachycardia; Additional info: Tachycardia, HX of metastatic colon ca TECHNIQUE: Axial computed tomographic angiography images of the chest with intravenous contrast using pulmonary embolism protocol. All CT scans at this facility use one or more dose reduction techniques, viz.: automated exposure control; ma/kV adjustment per patient size (including targeted exams where dose is matched to indication; i.e. head); or iterative reconstruction technique. MIP reconstructed images were created and reviewed. Coronal and sagittal reformatted images were created and reviewed. CONTRAST: 95 mL of OMNI 350 administered intravenously. COMPARISON: DX - CHEST PORTABLE 2017-12-15 02:54 FINDINGS: Artifacts: Motion artifact degrades image quality. Thyroid: Thyroid is not optimally demonstrated. Heart, aorta and Pulmonary arteries: Heart size is normal. There is trace fluid in pericardial recesses.There is no aneurysm or dissection. There are no central pulmonary emboli. Motion artifact limits evaluation of peripheral vessels. Lungs and pleural spaces: Trachea and main bronchi are patent. There is subsegmental atelectasis/scarring in the right upper lobe. There is atelectasis at both lung bases. There is scarring at the lung bases. There is elevation of the right diaphragm compressive atelectasis. There is patchy airspace disease at the right base. There are no effusions. There are no pulmonary nodules Bones/joints: There are degenerative changes in the bony structures. There is hemophilia is Soft tissues: unremarkable Mediastinum: The esophagus is not optimally demonstrated. There are shotty mediastinal nodes. There are no pathologically enlarged hilar nodes. Upper abdomen: The liver is diffusely enlarged. There are multiple hepatic masses. Tubes, lines and devices: There is a Port-A-Cath in in the right chest wall. Catheter tip is in the low superior vena cava. IMPRESSION: No aneurysm, dissection or central pulmonary embolus, limited evaluation of peripheral vessels of motion; subsegmental atelectasis/scarring in the right upper lobe with atelectatic changes at the lung bases and patchy airspace disease at the right base, atelectasis and/or infiltrate; metastatic disease in the liver Additional nonemergent findings as described above.
[2017-12-15] MEDS: Famotidine 20mg/50ml 20 MG/50 ML BAG IVPB SCH (23:12)
--- NOTE | 2017-12-16 03:00 | HP ---
HISTORY OF PRESENT ILLNESS: This 47-year-old female was examined in the emergency room where she was awaiting a cardiac unit bed. She is 47 years old with a past medical history of metastatic colon cancer, under the oncological followup of Dr. Fawad Anthony. The patient has known metastases to her liver. She underwent colonic surgery for diverticulosis and diverticulitis with a colon cancer noted on pathology report in the past. She has also chronic gastritis and since her discharge after her initial diagnosis of colon cancer has been clinically worsening despite chemotherapy. She presented to the ER complaining of abdomen pain as well as nausea and vomiting and difficulty with tolerating diet and is admitted for further evaluation of the above. It is unclear if she is compliant with her outpatient medications including Decadron, capecitabine and Protonix under the direction of Dr. Fawad Anthony. SOCIAL HISTORY: She is a current nondrinker, nonsmoker, non IV drug misuser. ALLERGIES: SHE HAS NO KNOWN ALLERGY TO MEDICATION. FAMILY HISTORY: Noncontributory. REVIEW OF SYSTEMS: Head review: No headache or seizure. Eye review: No change in visual acuity. Ear review: No hearing loss. Throat review: No swallowing difficulty. Neck review: No stiffness. Cardiac review: No history of chest pain. Pulmonary: No cough. No hemoptysis. GI: Nausea and vomiting, history of diverticulitis, diverticulosis, left colon resection with metastatic colon cancer to her liver. Renal: No dysuria. Endocrinological: No knowledge of hyperlipidemia or diabetes mellitus. Vascular: No claudication. Skin: No breakdown. Hematological: Anemia of chronic disease in the setting of metastatic colon cancer with known mets to her liver. PHYSICAL EXAMINATION: VITAL SIGNS: Temperature 98.5, respirations 20, pulse 105, blood pressure 135/85. Pulse ox 98% on room air. HEENT: Head normocephalic, atraumatic. Eyes: No icterus. Ears: Clear. Throat: Noninjected. NECK: Supple. HEART: With regular S1, S2. LUNGS: Clear. ABDOMEN: Obese, nontender. No palpable organomegaly. No rebound. No guarding. No tenderness. EXTREMITIES: No edema. SKIN: Without rash. NEUROLOGICAL: Able to follow verbal commands and move all 4 extremities. VASCULAR: Legs warm to touch. PSYCHOLOGICAL: Anxious and deconditioned. SKIN: Without breakdown. LABORATORY DATA: White count 14,300, hemoglobin 10.8, hematocrit 32.8, platelets of 236,000. Sodium 134, K 3.3, chloride 95, bicarb 24, BUN 11, creatinine 0.7, random blood sugar 87, bilirubin 6.4, direct bilirubin 5.0, AST 242, ALT 58, alk phos 261. Ammonia level 23, normal. Urinalysis: No bacteria. X-rays were reviewed. Chest x-ray showed no evidence of pneumonia, no pneumothorax, no pleural effusion. The patient was noted to have a right Medi-Port terminating in her right atrium. A head CT was reviewed. It showed no acute findings. There was no evidence of intracranial hemorrhage, edema or infarct. Abdominopelvic CT was reviewed. Evidence of previous left colon surgery was noted. Metastases to her liver and lymph nodes were noted consistent with metastatic colon cancer. IMPRESSION: A 47-year-old female with history of metastatic colon cancer, under the oncological followup of Dr. Fawad Anthony who has been noncompliant with medical followup with my office and history of diverticulosis, diverticulitis, obesity, chronic gastritis and history of left partial colectomy with a Port-A-Cath placement, now admitted to the cardiac unit with history of worsening abdominal pain, elevated white count. Blood and urine cultures pending. Normal ammonia level and elevated liver function testing. PLAN: My plans are to obtain consultations with Dr. Fawad Anthony, oncology and Dr. Jessica Jimenez from GI. The patient was dosed with Rocephin and vancomycin and now will be continued on Rocephin and Flagyl pending blood and urine cultures. A procalcitonin level will be ordered. She will be treated with morphine 2 mg IV q. 6 hours p.r.n. severe pain, Pepcid 20 mg IV q. 12 hours. She was given a dose of oral potassium. Comprehensive metabolic panel and CBC will be repeated in the a.m. She is ordered to receive D5 0.9 saline at 100 mL/hour and has orders for Zofran p.r.n. nausea and vomiting. Overall prognosis remains poor. She will be treated in a supportive manner and additional testings will be entertained based on clinical progress. All of the above was discussed in detail with the patient, nursing and emergency room physician this morning. Karol Banks MD [facility] # [id number] [facility]
[2017-12-16] MEDS: metroNIDAZOLE IV 500 mg/100 ml 500 MG/100 ML BAG IV SCH (05:42)
[2017-12-16] MEDS: Morphine 5 MG/ML SYRINGE IVP PRN (05:51)
[2017-12-16 07:10] LABS: HEMOGLOBIN 10.5 g/dL (12.0-16.0); MEAN CORPUSCULAR HEMOGLOBIN 31.2 pg (25.0-35.0); MEAN CORPUSCULAR HGB CONC 32.1 g/dl (31.0-37.0); MEAN PLATELET VOLUME 9.4 fl (7.0-11.0); RBC 3.37 10^6/uL (3.5-6.1); RED CELL DISTRIBUTION WIDTH 20.6 % (11.5-14.5); WHITE BLOOD COUNT 12.7 10^3/ul (4.5-11.0)
[2017-12-16 07:17] LABS: ALB/GLOB RATIO 0.6 (1.1-1.8); ALBUMIN 2.6 g/dL (3.0-4.8); ALT/SGPT 70 U/L (7-56); AST/SGOT 396 U/L (14-36); BLOOD UREA NITROGEN 14 mg/dL (7-21); CALCIUM 9.3 mg/dL (8.4-10.5); GFR AFRICAN-AMERICAN > 60; GFR NON-AFRICAN AMERICAN > 60
--- NOTE | 2017-12-16 09:52 | CP.CCUPN ---
CCU Subjective - Physician Review Events Since Last Encounter (Free Text): 12/16/17 09:48 47 year old female with past medical history of colon cancer with metastasis to the liver, diverticulitis, obesity, and chronic gastritis presents to the hospital for 3 day history of worsening abdominal pain. Pt was admitted to medical wards for treatment. Pt was evaluated by ICU team yesterday. This morning pt was more lethargic than yesterday and ICU follow up was requested by PMD. Pt was seen and examined at bedside. Patient was very lethargic during exam and unable to answer all questions. Much of history provided is from prior medical records. Patient remains very lethargic on exam. Responds to painful stimuli. ROS unobtainable due to altered mental status. PMH: Colon Cancer with metastasis to the liver, diverticulosis/diverticulitis, obesity, chronic gastritis Surgical history: left partial colectomy, Port-A-Cath Social history: Denies smoking, alcohol, or illicit drug use FAMILY HISTORY: mother had bone cancer Allergies: NKDA Medications: Reviewed CCU Objective - Vital Signs / Intake & Output Vital Signs (Last 4 hours): Vital Signs Temp Pulse Resp BP Pulse Ox 12/16/17 06:00 97.8 F 120 H 19 119/82 96 Intake and Output (Last 8hrs): Intake & Output 12/15/17 12/16/17 12/16/17 22:59 06:59 14:59 Intake Total 0 Output Total 100 Balance -100 Intake: Oral 0 Output: Urine 100 Urine, Voided 100 Stool 0 Urine/Stool Mix 0 Other: # Voids Urine, Voided 0 # Bowel Movements 1 - Physical Exam Head: Positive for: Atraumatic, Normocephalic Pupils: Positive for: PERRL Conjunctiva: Positive for: Icteric Mouth: Positive for: Dry Neck: Positive for: Normal Range of Motion Respiratory/Chest: Positive for: Clear to Auscultation, Good Air Exchange. Negative for: Respiratory Distress, Accessory Muscle Use Cardiovascular: Positive for: Regular Rate and Rhythm, Normal S1, S2. Negative for: Murmurs Abdomen: Positive for: Tenderness (Tenderness to mid and lower abdomen to palpation), Normal Bowel Sounds. Negative for: Distention, Peritoneal Signs Back: Positive for: Normal Inspection Upper Extremity: Positive for: Normal Inspection. Negative for: Cyanosis, Edema Lower Extremity: Positive for: Normal Inspection. Negative for: Edema Neurological: Positive for: Other (lethargic, does not follow commands) Skin: Positive for: Warm, Dry, Normal Color. Negative for: Rashes Psychiatric: Positive for: Alert, Lethargic. Negative for: Oriented x 3 - Medications Active Medications: Active Medications Generic Name Dose Route Start Last Admin Trade Name Freq PRN Reason Stop Dose Admin Acetaminophen 650 mg 12/15/17 12:07 Tylenol 325mg Tab PO Q6H PRN Fever >100.4 F Acetaminophen 650 mg 12/16/17 09:03 Tylenol 650 Mg Supp RC Q6H PRN Fever >100.4 F Famotidine 20 mg in 50 mls @ 100 mls/hr 12/15/17 22:00 12/15/17 23:12 Pepcid 20mg/50ml Premix IVPB 100 mls/hr Q12 JEANCARLOS Administration Cefepime HCl 1 gm in 100 mls @ 100 mls/hr 12/16/17 10:00 Maxipime 1gm IVPB Q12 JEANCARLOS Protocol Vancomycin HCl 1 gm in 250 mls @ 167 mls/hr 12/16/17 09:15 Vancomycin 1gm IVPB Q12H JEANCARLOS Protocol Dextrose/Sodium Chloride 1,000 mls @ 125 mls/hr 12/16/17 09:12 Dextrose 5%/0.9% Ns 1000 Ml IV .Q8H JEANCARLOS Morphine Sulfate 2 mg 12/15/17 12:07 12/16/17 05:51 Morphine IVP 2 mg Q6H PRN Administration severe pain Ondansetron HCl 4 mg 12/15/17 12:07 Zofran Inj IVP Q6H PRN Nausea/Vomiting - Patient Studies Lab Studies: Lab Studies 12/16/17 12/16/17 12/16/17 Range/Units 06:54 06:54 06:54 WBC 12.7 H (4.5-11.0) 10^3/ul RBC 3.37 L (3.5-6.1) 10^6/uL Hgb 10.5 L (12.0-16.0) g/dL Hct 32.7 L (36.0-48.0) % MCV 97.0 (80.0-105.0) fl MCH 31.2 (25.0-35.0) pg MCHC 32.1 (31.0-37.0) g/dl RDW 20.6 H (11.5-14.5) % Plt Count 229 (120.0-450.0) 10^3/uL MPV 9.4 (7.0-11.0) fl Sodium 138 (132-148) mmol/L Potassium 3.7 (3.6-5.0) mmol/L Chloride 102 (98-107) mmol/L Carbon Dioxide 25 (21-33) mmol/L Anion Gap 15 (10-20) BUN 14 (7-21) mg/dL Creatinine 0.7 (0.7-1.2) mg/dl Est GFR ( Amer) > 60 Est GFR (Non-Af Amer) > 60 Random Glucose 77 (70-110) mg/dL Lactic Acid 3.3 H (0.7-2.1) mmol/L Calcium 9.3 (8.4-10.5) mg/dL Total Bilirubin 6.8 H (0.2-1.3) mg/dL AST 396 H D (14-36) U/L ALT 70 H (7-56) U/L Alkaline Phosphatase 283 H (38-126) U/L Ammonia (9-33) umol/L Total Protein 6.7 (5.8-8.3) g/dL Albumin 2.6 L (3.0-4.8) g/dL Globulin 4.1 gm/dL Albumin/Globulin Ratio 0.6 L (1.1-1.8) 12/15/17 12/15/17 Range/Units 19:03 12:40 WBC (4.5-11.0) 10^3/ul RBC (3.5-6.1) 10^6/uL Hgb (12.0-16.0) g/dL Hct (36.0-48.0) % MCV (80.0-105.0) fl MCH (25.0-35.0) pg MCHC (31.0-37.0) g/dl RDW (11.5-14.5) % Plt Count (120.0-450.0) 10^3/uL MPV (7.0-11.0) fl Sodium (132-148) mmol/L Potassium (3.6-5.0) mmol/L Chloride (98-107) mmol/L Carbon Dioxide (21-33) mmol/L Anion Gap (10-20) BUN (7-21) mg/dL Creatinine (0.7-1.2) mg/dl Est GFR ( Amer) Est GFR (Non-Af Amer) Random Glucose (70-110) mg/dL Lactic Acid 3.7 H (0.7-2.1) mmol/L Calcium (8.4-10.5) mg/dL Total Bilirubin (0.2-1.3) mg/dL AST (14-36) U/L ALT (7-56) U/L Alkaline Phosphatase (38-126) U/L Ammonia 23 (9-33) umol/L Total Protein (5.8-8.3) g/dL Albumin (3.0-4.8) g/dL Globulin gm/dL Albumin/Globulin Ratio (1.1-1.8) Laboratory Results - last 24 hr 12/15/17 12/15/17 12/16/17 12:40 19:03 06:54 WBC 12.7 H RBC 3.37 L Hgb 10.5 L Hct 32.7 L MCV 97.0 MCH 31.2 MCHC 32.1 RDW 20.6 H Plt Count 229 MPV 9.4 Sodium Potassium Chloride Carbon Dioxide Anion Gap BUN Creatinine Est GFR ( Amer) Est GFR (Non-Af Amer) Random Glucose Lactic Acid 3.7 H Calcium Total Bilirubin AST ALT Alkaline Phosphatase Ammonia 23 Total Protein Albumin Globulin Albumin/Globulin Ratio 12/16/17 12/16/17 06:54 06:54 WBC RBC Hgb Hct MCV MCH MCHC RDW Plt Count MPV Sodium 138 Potassium 3.7 Chloride 102 Carbon Dioxide 25 Anion Gap 15 BUN 14 Creatinine 0.7 Est GFR ( Amer) > 60 Est GFR (Non-Af Amer) > 60 Random Glucose 77 Lactic Acid 3.3 H Calcium 9.3 Total Bilirubin 6.8 H AST 396 H D ALT 70 H Alkaline Phosphatase 283 H Ammonia Total Protein 6.7 Albumin 2.6 L Globulin 4.1 Albumin/Globulin Ratio 0.6 L Fingerstick Blood Sugar Results: 80 Review of Systems - Review of Systems Systems not reviewed;Unavailable: Acuity of Condition Critical Care Progress Note - Ventilator Checklist Head of Bed 30 Degrees: Yes PUD Prophalyxis: Yes DVT Prophylaxis: Yes - Nutrition Nutrition: Nutrition Category Date Time Status NPO Diet [DIET] Diets 12/15/17 Breakfast Ordered Assessment/Plan - Assessment and Plan (Free Text) Plan: Acute Respiratory Insufficiency \ Hypoxemia \ Sepsis \ PNA \ Colon CA with liver mets \ Encephalopathy -hemodynamic monitoring to maintain MAP>65 -abnormal ECG on admission; will order Echo; consider Cardio eval -o2 supplementation to maintain Spo2 90-92 Pao2>60; currently on NC -monitor airway closely for intubation -at this time pt is able to protect her airway -f\u stat ABG -CT chest shows Right Lower Lobe opacification -continue broad spectrum ABX, f\u cultures; consider ID eval -f\u Bun\Cr and U\o -NPO diet and aspiration precautions -f\u serial LFT, GI team f\u; repeat ammonia level; consider d\c tylenol -Heme\Onc f\u -Encephalopathy likely metabolic\hepatic; consider CT head when pt improved and neurology eval -DVT \ PUD prophylaxis CCM f\u time 36min
[2017-12-16] MEDS: Vancomycin 1gm in NS 250ml 1 GM/250 ML BAG IVPB SCH ×2 (09:55→22:02)
[2017-12-16] MEDS: Famotidine 20mg/50ml 20 MG/50 ML BAG IVPB SCH ×2 (09:56→22:02)
[2017-12-16] MEDS: Cefepime 1gm in NS 100ml 1 GM/100 ML BAG IVPB SCH ×2 (09:56→22:02)
[2017-12-16 09:59] LABS: ARTERIAL BLOOD GAS HCO3 21.1 mmol/L (21-28); ARTERIAL BLOOD GAS O2 SAT 98.3 % (95-98); ARTERIAL BLOOD GAS PCO2 31 mm/Hg (35-45); ARTERIAL BLOOD GAS PH 7.44 (7.35-7.45); ARTERIAL BLOOD GAS TCO2 22.1 mmol.L (22-28)
[2017-12-16] MEDS ORDERED: Lactulose 10 gm/15 ml (Rectal Use) PR SCH (10:45)
--- NOTE | 2017-12-16 11:36 | CP.PCM.CON ---
History of Present Illness - History of Present Illness History of Present Illness: Palliative consult requested by Dr Banks Reason: Goals of care 47 year old female with history of colon cancer which has metastasized to liver , diverticulitis who presented with worsening abdominal pain, 3 days duration. The patient is extremely lethargic with altered mental status.Labs, leukocytosis ,anemia, lactic acid 3.7,transaminitis, hypoalbunemia. CT of head showed no acute findings. CT of chest/ab/pelvis reveals atelectasis scarring RUL and atelectatic changes at lung base base, left colonic surgery with focal dilation and stool at anastomosis site, metastases in liver and to multiple lymph nodes, smqll amount of free fluid in the abdomen and pelvis PMHx: metastatic colon cancer, s/p jayleen colectomy, s/p chemotherapy, diverticulitis/losis, chronic gastritis,anemia. Social History:Non smoker, no alcohol or drug use. Family History: Mother had " bone cancer" Advance Care Planning: The patient does not have an Advanced Directive. Review of Systems: As per HPI, altered metal status,unable to obtain Past Patient History - Infectious Disease Hx of Infectious Diseases: None - Tetanus Immunizations Tetanus Immunization: Unknown - Past Social History Smoking Status: Never Smoked - CARDIAC Hx Cardiac Disorders: No Hx Pacemaker: No - PULMONARY Hx Respiratory Disorders: No - NEUROLOGICAL Hx Neurological Disorder: No - HEENT Hx HEENT Problems: No - RENAL Hx Chronic Kidney Disease: No - ENDOCRINE/METABOLIC Hx Endocrine Disorders: No - HEMATOLOGICAL/ONCOLOGICAL Hx Blood Disorders: Yes Hx Cancer: Yes (liver, colon) Hx Chemotherapy: Yes - INTEGUMENTARY Hx Dermatological Problems: No - MUSCULOSKELETAL/RHEUMATOLOGICAL Hx Musculoskeletal Disorders: Yes Hx Falls: Yes - GASTROINTESTINAL Hx Gastrointestinal Disorders: Yes (COLON CA; LIVER CA ?WITH METS) Hx Diverticulitis: Yes Other/Comment: H/O COLON PERFORATION,L PARTIAL COLECTOMY,CONSTIPATION - GENITOURINARY/GYNECOLOGICAL Hx Genitourinary Disorders: No - PSYCHIATRIC Hx Psychophysiologic Disorder: No Hx Emotional Abuse: No Hx Physical Abuse: No Hx Substance Use: No - SURGICAL HISTORY Hx Surgeries: Yes (L PARTIAL COLECTOMY,PORT) Other/Comment: COLON SX. ABDOMINAL SX - ANESTHESIA Hx Anesthesia Reactions: No Hx Malignant Hyperthermia: No Meds Allergies/Adverse Reactions: Allergies Allergy/AdvReac Type Severity Reaction Status Date / Time No Known Allergies Allergy Verified 03/08/18 12:04 - Medications Medications: Current Medications Famotidine (Pepcid 20mg/50ml Premix) 20 mg in 50 mls @ 100 mls/hr IVPB Q12 JEANCARLOS Last Admin: 12/16/17 09:56 Dose: 100 mls/hr Cefepime HCl (Maxipime 1gm) 1 gm in 100 mls @ 100 mls/hr IVPB Q12 JEANCARLOS PRN Reason: Protocol Last Admin: 12/16/17 09:56 Dose: 100 mls/hr Vancomycin HCl (Vancomycin 1gm) 1 gm in 250 mls @ 167 mls/hr IVPB Q12H JEANCARLOS PRN Reason: Protocol Last Admin: 12/16/17 09:55 Dose: 167 mls/hr Dextrose/Sodium Chloride (Dextrose 5%/0.9% Ns 1000 Ml) 1,000 mls @ 125 mls/hr IV .Q8H JEANCARLOS Lactulose (Generlac) 200 gm MO Q6H JEANCARLOS Morphine Sulfate (Morphine) 2 mg IVP Q6H PRN PRN Reason: severe pain Last Admin: 12/16/17 05:51 Dose: 2 mg Ondansetron HCl (Zofran Inj) 4 mg IVP Q6H PRN PRN Reason: Nausea/Vomiting Physical Exam - Constitutional Appears: Chronically Ill - Head Exam Head Exam: NORMAL INSPECTION - Eye Exam Eye Exam: PERRL, Scleral icterus - ENT Exam ENT Exam: Mucous Membranes Moist, Normal Oropharynx - Neck Exam Neck exam: Positive for: Normal Inspection - Respiratory Exam Respiratory Exam: Decreased Breath Sounds, NORMAL BREATHING PATTERN - Cardiovascular Exam Cardiovascular Exam: Tachycardia, +S1, +S2 - GI/Abdominal Exam GI & Abdominal Exam: Distended, Normal Bowel Sounds, Soft Additional comments: tenderness most pronounced in RUQ - Extremities Exam Extremities exam: Positive for: normal capillary refill, pedal edema - Back Exam Back exam: NORMAL INSPECTION - Neurological Exam Neurological exam: Altered - Skin Skin Exam: Dry, Pallor - Additional Findings Additional findings: Palliative performance scale 30 % Results - Vital Signs Recent Vital Signs: Last Vital Signs Temp 97.8 F 12/16/17 06:00 Pulse 120 H 12/16/17 06:00 Resp 19 12/16/17 06:00 BP 119/82 12/16/17 06:00 Pulse Ox 96 12/16/17 06:00 - Labs Result Diagrams: 12/16/17 06:54 12/16/17 06:54 Labs: Laboratory Results - last 24 hr 12/15/17 12/15/17 12/16/17 12:40 19:03 06:54 WBC 12.7 H RBC 3.37 L Hgb 10.5 L Hct 32.7 L MCV 97.0 MCH 31.2 MCHC 32.1 RDW 20.6 H Plt Count 229 MPV 9.4 pCO2 pO2 HCO3 ABG pH ABG Total CO2 ABG O2 Saturation ABG Base Excess ABG Potassium Glucose Lactate FiO2 Sodium Potassium Chloride Carbon Dioxide Anion Gap BUN Creatinine Est GFR ( Amer) Est GFR (Non-Af Amer) Random Glucose Lactic Acid 3.7 H Calcium Total Bilirubin AST ALT Alkaline Phosphatase Ammonia 23 Total Protein Albumin Globulin Albumin/Globulin Ratio Arterial Blood Potassium 12/16/17 12/16/17 12/16/17 06:54 06:54 09:50 WBC RBC Hgb Hct MCV MCH MCHC RDW Plt Count MPV pCO2 31 L pO2 72.0 L HCO3 21.1 ABG pH 7.44 ABG Total CO2 22.1 ABG O2 Saturation 98.3 H ABG Base Excess -2.1 L ABG Potassium 3.4 L Glucose 87 Lactate 5.3 H* FiO2 24.0 Sodium 138 138.0 Potassium 3.7 Chloride 102 106.0 Carbon Dioxide 25 Anion Gap 15 BUN 14 Creatinine 0.7 Est GFR ( Amer) > 60 Est GFR (Non-Af Amer) > 60 Random Glucose 77 Lactic Acid 3.3 H Calcium 9.3 Total Bilirubin 6.8 H AST 396 H D ALT 70 H Alkaline Phosphatase 283 H Ammonia Total Protein 6.7 Albumin 2.6 L Globulin 4.1 Albumin/Globulin Ratio 0.6 L Arterial Blood Potassium 3.4 L 12/16/17 10:15 WBC RBC Hgb Hct MCV MCH MCHC RDW Plt Count MPV pCO2 pO2 HCO3 ABG pH ABG Total CO2 ABG O2 Saturation ABG Base Excess ABG Potassium Glucose Lactate FiO2 Sodium Potassium Chloride Carbon Dioxide Anion Gap BUN Creatinine Est GFR ( Amer) Est GFR (Non-Af Amer) Random Glucose Lactic Acid Calcium Total Bilirubin AST ALT Alkaline Phosphatase Ammonia 27 Total Protein Albumin Globulin Albumin/Globulin Ratio Arterial Blood Potassium Assessment & Plan - Assessment and Plan (Free Text) Assessment: 47 year old female with history of metastatic colon cancer s/p jayleen colectomy and chemotherapy who is admitted with sepsis, altered mental status, transaminitis. The patient is lethargic,opens eyes when name is called, unable to follow simple command. I spoke with patients sister via phone. Informed sister of patients condition. When asked whether the patient had an advanced directive, Mary states she does not. Mary to coming to hospital for further discussion regarding goal of care. Mary to also to speak with Dr Hameed for update on her sister's condition. Multiple family at bedside. Updated them of patients condition. Discussed benefits and burdens of resuscitation. Family considering DNR/DNI they are waiting for the last of their siblings to arrive this evening before making decision. Psychosocial support provided. Time spent in discussion with family regarding goals of care, 45 minutes. Plan: Palliative support in establishing goals of care.
--- NOTE | 2017-12-16 12:02 | CON ---
DATE: This patient was seen and evaluated. REASON FOR CONSULTATION: Abdominal pain, sepsis, metastatic colon cancer. HISTORY OF PRESENT ILLNESS: This 47-year-old patient with a history of colon cancer, status post metastatic disease, status post left partial colectomy, admitted with abdominal pain. OTHER PAST MEDICAL HISTORY: Significant for as above, history of colon cancer, metastatic to the liver. FAMILY HISTORY: Noncontributory. SOCIAL HISTORY: Denies smoking or alcohol. REVIEW OF SYSTEMS: Positive as above. Other systems reviewed. PHYSICAL EXAMINATION: GENERAL: Patient is lying on the bed, not in acute distress. VITAL SIGNS: Temperature is 98.2, pulse 119, blood pressure is 126/77. HEENT: Atraumatic, anicteric. NECK: Supple. HEART: S1 and S2 heard. LUNGS: Bilateral air entry present. ABDOMEN: Soft. Liver is palpable. Tenderness is present. EXTREMITIES: No edema, no cyanosis. NEUROLOGICAL: Alert, oriented. LABORATORY DATA: Hemoglobin 10.8, hematocrit 32.8, WBC 14.3, platelets 236. ALT 52, alkaline phosphatase 261. The CT scan of the abdomen and pelvis done was reviewed. IMPRESSION: This 47-year-old patient with metastatic to colon cancer, admitted with worsening of the abdominal pain and rule out sepsis. The differential diagnoses include gastroenteritis, peptic ulcer disease. The CAT scan was reviewed, showed a multiple liver lesions. 1. Patient is on jackson cultures, antibiotics. 2. The patient was on steroid now. We will discuss with the basket maker regarding that usefulness at the present time. 3NPO RECOMMENDATIONS: 1. Follow up with cultures, antibiotics. We will continue the antibiotics. Patient also has found to have an elevated LFTs. Total bilirubin has gone up to 6.4. The differential diagnoses include shock liver and may be secondary to the liver metastasis. Would recommend ultrasound scan of the abdomen. The sonogram done in the past did not show any gall stones . We will continue to closely followup her care and suggest further management based on the clinical course. Jessica Jimenez MD [facility]
[2017-12-16] MEDS: Dextrose 5%/0.9% NS 1,000 ML IV SCH (12:42)
--- NOTE | 2017-12-16 13:09 | CP.PCM.PN ---
<Renuka Nevarez - Last Filed: 12/16/17 13:07> Subjective - Date & Time of Evaluation Date of Evaluation: 12/16/17 Time of Evaluation: 11:10 - Subjective Subjective: Seen and examined at the bedside, patient was transferred from [facility] ICU for tachycardia and change in mental status. Patient is lethargic and unable to answer questions or follow simple commands. On admission patient complained of nausea and vomiting and unable to tolerate oral intake. Objective - Vital Signs/Intake and Output Vital Signs (last 24 hours): Temp Pulse Resp BP Pulse Ox 97.8 F 120 H 19 119/82 96 12/16/17 06:00 12/16/17 06:00 12/16/17 06:00 12/16/17 06:00 12/16/17 06:00 Intake and Output: 12/16/17 12/16/17 06:59 18:59 Intake Total 0 Output Total 100 Balance -100 - Medications Medications: Current Medications Famotidine (Pepcid 20mg/50ml Premix) 20 mg in 50 mls @ 100 mls/hr IVPB Q12 [facility]AR[facility] Last Admin: 12/16/17 09:56 Dose: 100 mls/hr Cefepime HCl (Maxipime 1gm) 1 gm in 100 mls @ 100 mls/hr IVPB Q12 [facility] PRN Reason: Protocol Last Admin: 12/16/17 09:56 Dose: 100 mls/hr Vancomycin HCl (Vancomycin 1gm) 1 gm in 250 mls @ 167 mls/hr IVPB Q12H [facility] PRN Reason: Protocol Last Admin: 12/16/17 09:55 Dose: 167 mls/hr Dextrose/Sodium Chloride (Dextrose 5%/0.9% Ns 1000 Ml) 1,000 mls @ 125 mls/hr IV .Q8H [facility] Lactulose (Generlac) 200 gm OR Q6H JEANCARLOS Morphine Sulfate (Morphine) 2 mg IVP Q6H PRN PRN Reason: severe pain Last Admin: 12/16/17 05:51 Dose: 2 mg Ondansetron HCl (Zofran Inj) 4 mg IVP Q6H PRN PRN Reason: Nausea/Vomiting - Labs Labs: 12/16/17 06:54 12/16/17 06:54 - Constitutional Appears: Cachectic (lethargic no responding verbally, open eyes when call name) - Eye Exam Eye Exam: Scleral icterus - ENT Exam ENT Exam: Mucous Membranes Dry - Neck Exam Neck Exam: Normal Inspection - Respiratory Exam Respiratory Exam: NORMAL BREATHING PATTERN. absent: Respiratory Distress - Cardiovascular Exam Cardiovascular Exam: Tachycardia, +S1, +S2 - GI/Abdominal Exam GI & Abdominal Exam: Soft, Tenderness (diffuse), Hypoactive Bowel Sounds. absent: Guarding, Rebound - Extremities Exam Extremities Exam: Pedal Edema - Neurological Exam Neurological Exam: Altered (lethargic, not verbally responding) - Skin Skin Exam: Dry, Warm Assessment and Plan - Assessment and Plan (Free Text) Assessment: ASSESSMENT: Colon cancer with metastasis to liver Abdominal Pain Altered Mental Status? encephalopathy , ammonia 27, or narcotic induced? Sepsis/leukocytosis Elevated LFT, ? hepatic congestion/metestatic liver disease UTI H/O diverticulosis/diverticulitits, s/p colectomy PLAN: NPO, continue IVF on Pepcid BID on IV antibiotics spoke to ICU team hold off on Lacutulose, will review ct scan and reconsider if repeat needed monitor LFT Seen and discussed w/ Dr. Jimenez. <Jessica Jimenez V - Last Filed: 12/17/17 07:32> Objective - Vital Signs/Intake and Output Vital Signs (last 24 hours): Temp Pulse Resp BP Pulse Ox 98.4 F 113 H 19 119/82 96 12/16/17 16:55 12/16/17 18:00 12/16/17 06:00 12/16/17 06:00 12/16/17 06:00 Intake and Output: 12/16/17 12/17/17 18:59 06:59 Intake Total 700 Output Total 0 Balance 700 - Medications Medications: Current Medications Famotidine (Pepcid 20mg/50ml Premix) 20 mg in 50 mls @ 100 mls/hr IVPB Q12 [facility] Last Admin: 12/16/17 22:02 Dose: 100 mls/hr Cefepime HCl (Maxipime 1gm) 1 gm in 100 mls @ 100 mls/hr IVPB Q12 [facility] PRN Reason: Protocol Last Admin: 12/16/17 22:02 Dose: 100 mls/hr Vancomycin HCl (Vancomycin 1gm) 1 gm in 250 mls @ 167 mls/hr IVPB Q12H [facility] PRN Reason: Protocol Last Admin: 12/16/17 22:02 Dose: 167 mls/hr Dextrose/Sodium Chloride (Dextrose 5%/0.9% Ns 1000 Ml) 1,000 mls @ 125 mls/hr IV .Q8H [facility]ARL[facility] Last Admin: 12/16/17 12:42 Dose: 125 mls/hr Morphine Sulfate (Morphine) 1 mg IVP Q6H PRN PRN Reason: Pain, severe (8-10) Last Admin: 12/16/17 15:03 Dose: 1 mg Ondansetron HCl (Zofran Inj) 4 mg IVP Q6H PRN PRN Reason: Nausea/Vomiting - Labs Labs: 12/16/17 06:54 12/16/17 06:54 Attending/Attestation - Attestation I have personally seen and examined this patient.: Yes I have fully participated in the care of the patient.: Yes I have reviewed all pertinent clinical information, including history, physical exam and plan: Yes Notes (Text): his is an addendum to GI progress report dictated by Renuka Nevarez APN.The patient was seen and examined earlier. Medical records, lab studies, imagings were reviewed. Last 24 hours events reviewed. Agreed with the above treatment plan as outlined in Renuka Nevarez APN's notes the with the addition of the following discussed with the resident patient c/o abdominal pain on narcotics on examination sheis more alert ,diffuse tenderness present We will hold off lactulose edema for now We'll repeat the ammonia level will consider placing Dobbhoff feeding tube and starting lactulose if needed Would consider avoiding enema in the setting of diffuse abdominal tenderness at the present time Patient was reevaluated in the evening and discussed with ICU staff . The patient was more alert we will continue to closely monitor Continue antibiotics CT scan was reviewed patient has extensive metastatic disease patient is presently DNR/DNI Sepsis continue the antibiotics as per ID 12/16/17 23:50 12/17/17 07:26
--- NOTE | 2017-12-16 13:25 | PN ---
DATE: 12/16/2017 CRITICAL CARE PROGRESS NOTE SUMMARY: This 47-year-old female was examined in critical care unit bed #4. This case was reviewed in detail with Dr. Gm Norton, hair mixer; Jacquie Ma, palliative nurse coordinator and sister Mary Daniel. The case was also reviewed with Dr. Fawad Anthony from Oncology and Dr. Jessica Jimenez from GI. The patient continues to clinically deteriorate. She is less verbally responsive and remains markedly deconditioned with tachycardia. She had a low-grade temperature earlier this morning of 100, She was ordered to have repeat blood cultures and at present is receiving vancomycin 1 g IV q. 12 and Maxipime 1 g IV q. 12. Her clinical picture is consistent with lactic acidosis in the setting of metastatic colon cancer to her liver and the patient does not have a previous DNR/DNI or advanced directive. This was reviewed with the hair mixer, palliative care nurse and sister who is on her way to the hospital for further discussion of the above. PHYSICAL EXAMINATION: VITAL SIGNS: On clinical evaluation, she has sinus tachycardia, temperature 97.8, respirations 19, pulse 120 and blood pressure 119/82 with a pulse ox of 98% on room air. HEENT: Head is normocephalic, atraumatic. Eyes: Positive icterus. Ears: Clear. Throat: Noninjected. NECK: Supple. HEART: Rapid S1, S2. LUNGS: No wheezing. ABDOMEN: Obese, nontender. No palpable organomegaly. EXTREMITIES: No clubbing, no cyanosis, no edema. SKIN: Without rash. NEUROLOGICAL: Eyes open, but verbally unresponsive. Moves all four extremities to painful stimuli. SKIN: Without breakdown. VASCULAR: Legs warm to touch. LABORATORY DATA: Blood culture showed no growth at 24 hours. Urine culture is showing gram-positive cocci between 50,000 and 100,000 colonies forming units per mL. White count 12,700, previously 14,300; hemoglobin 10.5; hematocrit 32.7; platelets 229,000. Her arterial blood gas shows pH 7.44, pCO2 of 31, pO2 of 72, bicarb 21 on 24% fio2. Sodium 138, K 3.7, chloride 102, bicarb 25, BUN 14, creatinine 0.7, random blood sugar 77, lactic acid level 3.3, AST 396, ALT 70, alk phos 283, ammonia level 27, direct bilirubin was 5, total bilirubin 6.8. Urinalysis showed no bacteria. Chest CT angio was reviewed and revealed no aneurysm, dissection or central pulmonary embolus. The patient was noted to have patchy changes at the right base consistent with possible atelectasis and/or infiltrate with metastatic disease noted in her liver as was seen on her abdominopelvic CT. IMPRESSION: A 47-year-old female with metabolic encephalopathy in the setting of advanced metastatic colon cancer to her liver and now with persistent lactic acidosis secondary to metastatic colon cancer in the liver producing lactic acidosis and comorbidities of anemia of chronic disease, tachycardia and right basilar atelectasis. PLAN: The plan is discussed with nursing; hair mixer, Dr. Norton; palliative care nurse, Jacquie Ma and family will be to continue aggressive critical care support including maintaining n.p.o., treating the patient empirically with lactulose enema, performing a bedside echocardiogram to assess LV function while continuing Zofran 4 mg IV q. 6 hours p.r.n. nausea or vomiting, vancomycin 1 g IV q. 12, D5 0.9 saline at 125 mL/hour, Maxipime 1 g IV q. 12 and Pepcid 20 mg IV q. 12. She is ordered to have a comprehensive metabolic panel and CBC in the a.m. I will order a repeat urine culture as well as CBC. Family is en route to discuss DNR/DNI and as discussed with the hair mixer and Dr. Fawad Anthony, overall prognosis is extremely poor at present. The patient will continue to be treated in compassionate and supportive fashion. Greater than sixty minutes was spent in the critical care management of this patient today. Overall prognosis remains poor. Karol Banks MD MARILUZ
[2017-12-16 14:43] LABS: VENOUS BLOOD GAS BASE EXCESS -6.2 mmol/L (0.0-2.0); VENOUS BLOOD GAS PO2 106 mm/Hg (30-55); VENOUS BLOOD PH 7.38 (7.32-7.43)
--- NOTE | 2017-12-16 14:47 | CON ---
DATE: ONCOLOGY CONSULTATION HISTORY OF PRESENT ILLNESS: This is a 47-year-old woman with colon cancer widely metastatic to her liver. She presents with colon cancer widely metastatic to the liver, she is status post colon resection and I saw her in the office, I was able to give her one shot of chemotherapy, which was Xeloda plus oxaliplatin; however, for the last about almost two months, she has been in and out of hospitals. She was last at [facility] for the last two weeks. She was evidently discharged and now she is readmitted to [place]. PHYSICAL EXAMINATION: GENERAL: The patient is not able to speak to me at this point. SKIN: No petechiae. No bruises. HEENT: Icteric at this point and this is new. NODES: Nonpalpable in axillary, cervical, supraclavicular, or inguinal regions. LUNGS: Clear at present. The patient is able to lie flat. HEART: S1, S2. ABDOMEN: Shows right upper quadrant tenderness. No actual ascites that I can determine. EXTREMITIES: Show some edema in the ankles. CENTRAL NERVOUS SYSTEM: The patient seems to be in liver failure. LABORATORY DATA: The blood test show the AST 400, ALT is 70, alkaline phosphatase is 283, but she is also acidotic and she also is beginning to develop lactic acidosis. ASSESSMENT AND PLAN: She essentially has terminal cancer. At this point, she should be focused on symptom control and consider hospice evaluation. She is simply too weak to get any kind of chemotherapy at this point. Fawad Anthony MD
[2017-12-16] MEDS: Morphine 2 mg/ml ISec IVP PRN (15:03)
--- NOTE | 2017-12-16 18:33 | CP.PCM.CON ---
History of Present Illness - History of Present Illness History of Present Illness: Infectious Disease Consultation: December 16, 2017 47 year old female with past medical history of colon cancer with metastasis to the liver, diverticulitis, obesity, and chronic gastritis presents to the hospital for 3 day history of worsening abdominal pain. Patient was very lethargic during exam and unable to answer all questions. Much of history provided is from prior medical records. Patient has abdominal pain at baseline, but it is now much worse in the RLQ. Patient very lethargic on exam. Responds to painful stimuli. ROS unobtainable due to altered mental status. Many family member at bedside. At this time the patient is a Full Code. Unclear if all the family members are aware of the patient's poor prognosis. PMHx: Morbid Obesity, colon cancer with liver metastasis, diverticulitis, chronic gastritis PSHx: Left partial colectomy, Port-A-Cath Allergies: NKDA Social Hx: Social EtOH 4-5 drinks/mo No tobacco No illicit drugs Active Medications Famotidine (Pepcid 20mg/50ml Premix) 20 mg in 50 mls @ 100 mls/hr IVPB Q12 [facility]ARLOS Last Admin: 12/16/17 09:56 Dose: 100 mls/hr Cefepime HCl (Maxipime 1gm) 1 gm in 100 mls @ 100 mls/hr IVPB Q12 [facility]ARLOS PRN Reason: Protocol Last Admin: 12/16/17 09:56 Dose: 100 mls/hr Vancomycin HCl (Vancomycin 1gm) 1 gm in 250 mls @ 167 mls/hr IVPB Q12H [facility]ARLOS PRN Reason: Protocol Last Admin: 12/16/17 09:55 Dose: 167 mls/hr Dextrose/Sodium Chloride (Dextrose 5%/0.9% Ns 1000 Ml) 1,000 mls @ 125 mls/hr IV .Q8H JE[facility]ARLOS Last Admin: 12/16/17 12:42 Dose: 125 mls/hr Morphine Sulfate (Morphine) 1 mg IVP Q6H PRN PRN Reason: Pain, severe (8-10) Last Admin: 12/16/17 15:03 Dose: 1 mg Ondansetron HCl (Zofran Inj) 4 mg IVP Q6H PRN PRN Reason: Nausea/Vomiting Family Hx: none given ROS: no fevers, chills, nausea, vomiting, diarrhea, headaches, dizziness, chest pain , melena, hematuria, hematemesis, hematochezia, depression, anxiety. Patient with abdominal pain. Past Patient History - Infectious Disease Hx of Infectious Diseases: None - Tetanus Immunizations Tetanus Immunization: Unknown - Past Social History Smoking Status: Never Smoked - CARDIAC Hx Cardiac Disorders: No Hx Pacemaker: No - PULMONARY Hx Respiratory Disorders: No - NEUROLOGICAL Hx Neurological Disorder: No - HEENT Hx HEENT Problems: No - RENAL Hx Chronic Kidney Disease: No - ENDOCRINE/METABOLIC Hx Endocrine Disorders: No - HEMATOLOGICAL/ONCOLOGICAL Hx Blood Disorders: Yes Hx Cancer: Yes (liver, colon) Hx Chemotherapy: Yes - INTEGUMENTARY Hx Dermatological Problems: No - MUSCULOSKELETAL/RHEUMATOLOGICAL Hx Musculoskeletal Disorders: Yes Hx Falls: Yes - GASTROINTESTINAL Hx Gastrointestinal Disorders: Yes (COLON CA; LIVER CA ?WITH METS) Hx Diverticulitis: Yes Other/Comment: H/O COLON PERFORATION,L PARTIAL COLECTOMY,CONSTIPATION - GENITOURINARY/GYNECOLOGICAL Hx Genitourinary Disorders: No - PSYCHIATRIC Hx Psychophysiologic Disorder: No Hx Emotional Abuse: No Hx Physical Abuse: No Hx Substance Use: No - SURGICAL HISTORY Hx Surgeries: Yes (L PARTIAL COLECTOMY,PORT) Other/Comment: COLON SX. ABDOMINAL SX - ANESTHESIA Hx Anesthesia Reactions: No Hx Malignant Hyperthermia: No Meds Allergies/Adverse Reactions: Allergies Allergy/AdvReac Type Severity Reaction Status Date / Time No Known Allergies Allergy Verified 12/15/17 12:04 - Medications Medications: Current Medications Famotidine (Pepcid 20mg/50ml Premix) 20 mg in 50 mls @ 100 mls/hr IVPB Q12 [facility] Last Admin: 12/16/17 09:56 Dose: 100 mls/hr Cefepime HCl (Maxipime 1gm) 1 gm in 100 mls @ 100 mls/hr IVPB Q12 JEANCARLOS PRN Reason: Protocol Last Admin: 12/16/17 09:56 Dose: 100 mls/hr Vancomycin HCl (Vancomycin 1gm) 1 gm in 250 mls @ 167 mls/hr IVPB Q12H [facility]ANCARLOS PRN Reason: Protocol Last Admin: 12/16/17 09:55 Dose: 167 mls/hr Dextrose/Sodium Chloride (Dextrose 5%/0.9% Ns 1000 Ml) 1,000 mls @ 125 mls/hr IV .Q8H [facility] Last Admin: 12/16/17 12:42 Dose: 125 mls/hr Morphine Sulfate (Morphine) 1 mg IVP Q6H PRN PRN Reason: Pain, severe (8-10) Last Admin: 12/16/17 15:03 Dose: 1 mg Ondansetron HCl (Zofran Inj) 4 mg IVP Q6H PRN PRN Reason: Nausea/Vomiting Physical Exam - Constitutional Appears: Toxic, No Acute Distress, Chronically Ill - Head Exam Head Exam: ATRAUMATIC, NORMOCEPHALIC - ENT Exam ENT Exam: Mucous Membranes Dry, Normal External Ear Exam, TM's Normal Bilaterally - Neck Exam Neck exam: Positive for: Normal Inspection. Negative for: Lymphadenopathy - Respiratory Exam Respiratory Exam: Decreased Breath Sounds, NORMAL BREATHING PATTERN. absent: Rales, Rhonchi, Wheezes - Cardiovascular Exam Cardiovascular Exam: Tachycardia, +S1, +S2 - GI/Abdominal Exam GI & Abdominal Exam: Distended, Firm, Normal Bowel Sounds, Tenderness - Extremities Exam Extremities exam: Positive for: normal inspection. Negative for: calf tenderness, pedal edema - Neurological Exam Neurological exam: Altered Additional comments: Lethargic. - Skin Skin Exam: Dry, Intact Results - Vital Signs Recent Vital Signs: Last Vital Signs Temp 97.8 F 12/16/17 06:00 Pulse 131 H 12/16/17 10:00 Resp 19 12/16/17 06:00 BP 119/82 12/16/17 06:00 Pulse Ox 96 12/16/17 06:00 - Labs Result Diagrams: 12/16/17 06:54 12/16/17 06:54 Labs: Laboratory Results - last 24 hr 12/15/17 12/16/17 12/16/17 19:03 06:54 06:54 WBC 12.7 H RBC 3.37 L Hgb 10.5 L Hct 32.7 L MCV 97.0 MCH 31.2 MCHC 32.1 RDW 20.6 H Plt Count 229 MPV 9.4 pCO2 pO2 HCO3 ABG pH ABG Total CO2 ABG O2 Saturation ABG Base Excess ABG Potassium VBG pH VBG pCO2 VBG HCO3 VBG Total CO2 VBG O2 Sat (Calc) VBG Base Excess VBG Potassium Glucose Lactate FiO2 Sodium Potassium Chloride Carbon Dioxide Anion Gap BUN Creatinine Est GFR ( Amer) Est GFR (Non-Af Amer) POC Glucose (mg/dL) Random Glucose Lactic Acid 3.7 H Calcium Total Bilirubin AST ALT Alkaline Phosphatase Ammonia Total Protein Albumin Globulin Albumin/Globulin Ratio Procalcitonin 11.45 H Arterial Blood Potassium Venous Blood Potassium 12/16/17 12/16/17 12/16/17 06:54 06:54 09:50 WBC RBC Hgb Hct MCV MCH MCHC RDW Plt Count MPV pCO2 31 L pO2 72.0 L HCO3 21.1 ABG pH 7.44 ABG Total CO2 22.1 ABG O2 Saturation 98.3 H ABG Base Excess -2.1 L ABG Potassium 3.4 L VBG pH VBG pCO2 VBG HCO3 VBG Total CO2 VBG O2 Sat (Calc) VBG Base Excess VBG Potassium Glucose 87 Lactate 5.3 H* FiO2 24.0 Sodium 138 138.0 Potassium 3.7 Chloride 102 106.0 Carbon Dioxide 25 Anion Gap 15 BUN 14 Creatinine 0.7 Est GFR ( Amer) > 60 Est GFR (Non-Af Amer) > 60 POC Glucose (mg/dL) Random Glucose 77 Lactic Acid 3.3 H Calcium 9.3 Total Bilirubin 6.8 H AST 396 H D ALT 70 H Alkaline Phosphatase 283 H Ammonia Total Protein 6.7 Albumin 2.6 L Globulin 4.1 Albumin/Globulin Ratio 0.6 L Procalcitonin Arterial Blood Potassium 3.4 L Venous Blood Potassium 12/16/17 12/16/17 12/16/17 10:15 11:58 14:30 WBC RBC Hgb Hct MCV MCH MCHC RDW Plt Count MPV pCO2 pO2 106 H HCO3 ABG pH ABG Total CO2 ABG O2 Saturation ABG Base Excess ABG Potassium VBG pH 7.38 VBG pCO2 30.0 L VBG HCO3 17.7 L VBG Total CO2 18.6 L VBG O2 Sat (Calc) 99.4 H VBG Base Excess -6.2 L VBG Potassium 3.7 Glucose 99 Lactate 7.8 H* FiO2 21.0 Sodium 138.0 Potassium Chloride 106.0 Carbon Dioxide Anion Gap BUN Creatinine Est GFR ( Amer) Est GFR (Non-Af Amer) POC Glucose (mg/dL) 87 Random Glucose Lactic Acid Calcium Total Bilirubin AST ALT Alkaline Phosphatase Ammonia 27 Total Protein Albumin Globulin Albumin/Globulin Ratio Procalcitonin Arterial Blood Potassium Venous Blood Potassium 3.7 12/16/17 16:55 WBC RBC Hgb Hct MCV MCH MCHC RDW Plt Count MPV pCO2 pO2 HCO3 ABG pH ABG Total CO2 ABG O2 Saturation ABG Base Excess ABG Potassium VBG pH VBG pCO2 VBG HCO3 VBG Total CO2 VBG O2 Sat (Calc) VBG Base Excess VBG Potassium Glucose Lactate FiO2 Sodium Potassium Chloride Carbon Dioxide Anion Gap BUN Creatinine Est GFR ( Amer) Est GFR (Non-Af Amer) POC Glucose (mg/dL) 99 Random Glucose Lactic Acid Calcium Total Bilirubin AST ALT Alkaline Phosphatase Ammonia Total Protein Albumin Globulin Albumin/Globulin Ratio Procalcitonin Arterial Blood Potassium Venous Blood Potassium Assessment & Plan - Assessment and Plan (Free Text) Assessment: 47 yo AA female with colon cancer with metastatic disease to the liver. On Vancomycin and Zosyn for antibiotic coverage. 3 days of worsening abdominal pain. She is currently a full code status. The patient has a terminal cancer. Mild leukocytosis. The patient has an altered mental status. Procalcitonin level is 11.45. Procalcitonin elevation may be secondary to her metastatic colon cancer. So in this case, an elevated procalcitonin may not mean an infectious process. Regardless, the patient's overall prognosis is very poor at this time. Continue IV antibiotics. Supportive care. Thank you for allowing me to participate in the care of the patient, we will follow with you.
--- NOTE | 2017-12-16 21:17 | CP.PCM.PCO ---
Subjective - Physician Review Subjective (Free Text): 12/16/17 21:14 Asked by the [facility] nurse to come speak with the family as they had some questions in regards to signing paperwork for a DNR/DNI. Discussed the patient' s case with multiple family members present, amongst them were the patient's 2 sisters as well as her 3 sons, the eldest was Fawad. Fawad stated he had discussed his mother's wishes with her in the past and she relayed that she did not want to prolong her life with artificial measures or be in pain. Given that these were her wishes, the family elected to make her a DNR/DNI. They had a discussion with palliative care earlier today in depth regarding the patient's care. Nurse Zamorano was present for the discussion and signed as a witness to the change in her resuscitation status.
[2017-12-16 21:42] LABS: VENOUS BLOOD GAS BASE EXCESS -4.1 mmol/L (0.0-2.0); VENOUS BLOOD GAS PO2 113 mm/Hg (30-55); VENOUS BLOOD PH 7.39 (7.32-7.43)
[2017-12-17] MEDS: Dextrose 5%/0.9% NS 1,000 ML IV SCH ×2 (01:05→09:01)
[2017-12-17 01:22] LABS: VENOUS BLOOD GAS BASE EXCESS -2.1 mmol/L (0.0-2.0); VENOUS BLOOD GAS PO2 92 mm/Hg (30-55); VENOUS BLOOD PH 7.44 (7.32-7.43)
[2017-12-17] MEDS: Morphine 2 mg/ml ISec IVP PRN ×3 (03:37→20:44)
[2017-12-17 06:51] LABS: ALB/GLOB RATIO 0.6 (1.1-1.8); ALBUMIN 2.4 g/dL (3.0-4.8); ALT/SGPT 87 U/L (7-56); AST/SGOT 527 U/L (14-36); BLOOD UREA NITROGEN 18 mg/dL (7-21); CALCIUM 9.2 mg/dL (8.4-10.5); GFR AFRICAN-AMERICAN > 60; GFR NON-AFRICAN AMERICAN 59
[2017-12-17 06:59] LABS: MEAN CELL VOLUME 98.4 fl (80.0-105.0); MEAN CORPUSCULAR HEMOGLOBIN 31.3 pg (25.0-35.0); MEAN CORPUSCULAR HGB CONC 31.7 g/dl (31.0-37.0); MEAN PLATELET VOLUME 9.3 fl (7.0-11.0); RBC 3.2 10^6/uL (3.5-6.1); RED CELL DISTRIBUTION WIDTH 21.3 % (11.5-14.5); WHITE BLOOD COUNT 11.9 10^3/ul (4.5-11.0)
[2017-12-17] MEDS: Vancomycin 1gm in NS 250ml 1 GM/250 ML BAG IVPB SCH (09:12)
[2017-12-17] MEDS: Famotidine 20mg/50ml 20 MG/50 ML BAG IVPB SCH ×2 (09:13→21:30)
[2017-12-17] MEDS: Cefepime 1gm in NS 100ml 1 GM/100 ML BAG IVPB SCH (09:20)
--- NOTE | 2017-12-17 13:23 | PN ---
DATE: 12/17/2017 HEALTH INFORMATION PROVIDER NOTE SUBJECTIVE: The patient is resting in bed with O2 via nasal cannula and IV fluids. She does respond to the spoken word, but does seem to be a little lethargic and it is hard to assess whether she is oriented x3. The patient initially presented with altered mental status and metabolic encephalopathy. The patient has no nauseousness or vomiting and no obvious pain at this time. PHYSICAL EXAMINATION VITAL SIGNS: Note that her temperature is 98.1, her pulse is 108, respirations are 24 and BP is 127/79. SKIN: Warm and dry. HEENT: Head: Atraumatic, normocephalic. Eyes: Reactive to light. Ears, nose and throat: Seemed to be within normal limits. NECK: Supple. No JVD. No thyroid enlargement, no lymph nodes. HEART: Has regular rate and rhythm. Normal S1, S2, but tachycardic. LUNGS: Reveal decreased breath sounds at the bases. ABDOMEN: Soft. Decreased bowel sounds. GENITALIA AND RECTAL: Deferred. MUSCULOSKELETAL: No joint deformities. EXTREMITIES: Reveal trace lower extremity edema. NEUROLOGIC: The patient is fairly lethargic with does move all extremities. LABORATORY DATA: As far as her laboratories are concerned, her white count is 11.9, hemoglobin is 10.0, hematocrit 31.5 with platelets of 181,000. The patient's sodium is 141, potassium 3.4, chloride 108, CO2 of 24 with BUN of 18, creatinine of 1 and a glucose of 146. IMPRESSION: This patient has colon cancer with metastatic lesions to the liver. She has altered mental status with most likely metabolic encephalopathy and anemia as well as right lower lobe atelectasis. PLAN: The patient is DNR and DNI. We will continue with IV fluids, continue with pain meds and O2 via nasal cannula. The patient is getting cefepime as far as antibiotics, getting morphine for her pain and vancomycin as well as Zosyn. We will continue to treat aggressively along with the other consultants and the primary care doctor. Eddi Foster MD
--- NOTE | 2017-12-17 16:21 | CARD ---
APPROVED REPORT EXAM: Two-dimensional and M-mode echocardiogram with Doppler and color Doppler. INDICATION 2D DIMENSIONS Left Atrium (2D)2.7 (1.6-4.0cm)IVSd0.9 (0.7-1.1cm) LVDd3.6 (3.9-5.9cm)PWd0.9 (0.7-1.1cm) LVDs2.4 (2.5-4.0cm)FS (%) 34.6 % LVEF (%)64.8 (>50%) M-Mode DIMENSIONS Aortic Root3.20 (2.2-3.7cm)Aortic Cusp Exc.1.90 (1.5-2.0cm) Aortic Valve AoV Peak Iiihmuwj395.0cm/Shannon Peak GR.10mmHg Mitral Valve MV E Cfffjulu92.5cm/sMV A Govfgyon66.8cm/sE/A ratio0.8 TDI Lateral E' Peak V10.20cm/sMedial E' Peak V7.99cm/sE/Lateral E'7.4 E/Medial E'9.4 Tricuspid Valve TR Peak Wpqbrdll328tc/sRAP [id number] Peak Gr.28mmHg [id number] LEFT VENTRICLE The left ventricle is normal size. There is normal left ventricular wall thickness. The left ventricular function is normal. The left ventricular ejection fraction is within the normal range. There is normal LV segmental wall motion. Transmitral Doppler flow pattern is Grade I-abnormal relaxation pattern. RIGHT VENTRICLE The right ventricle is normal size. There is normal right ventricular wall thickness. The right ventricular systolic function is normal. ATRIA The left atrium size is normal. The right atrium size is normal. AORTIC VALVE The aortic valve is not well visualized. No aortic regurgitation is present. There is no aortic valvular stenosis. MITRAL VALVE The mitral valve is normal in structure. There is no mitral valve regurgitation noted. TRICUSPID VALVE The tricuspid valve is normal in structure. There is mild tricuspid regurgitation. There is mild pulmonary hypertension. GREAT VESSELS The aortic root is normal in size. The IVC is normal in size and collapses >50% with inspiration. PERICARDIAL EFFUSION There is no pericardial effusion. <Conclusion> The left ventricle is normal size. There is normal left ventricular wall thickness. The left ventricular function is normal. The left ventricular ejection fraction is within the normal range. There is normal LV segmental wall motion. Transmitral Doppler flow pattern is Grade I-abnormal relaxation pattern. There is mild tricuspid regurgitation. There is mild pulmonary hypertension.
--- NOTE | 2017-12-17 17:03 | CP.PCM.PN ---
Subjective - Date & Time of Evaluation Date of Evaluation: 12/17/17 Time of Evaluation: 15:00 - Subjective Subjective: Infectious Disease Follow Up: December 17, 2017 47 year old female with past medical history of colon cancer with metastasis to the liver, diverticulitis, obesity, and chronic gastritis presents to the hospital for 3 day history of worsening abdominal pain. Patient was very lethargic during exam and unable to answer all questions. Much of history provided is from prior medical records. Patient has abdominal pain at baseline, but it is now much worse in the RLQ. Patient very lethargic on exam. Responds to painful stimuli. ROS unobtainable due to altered mental status. Many family member at bedside. Family appears to be coming to term with the severity of the patient's illnesses. The children have agreed to DNR and DNI Objective - Vital Signs/Intake and Output Vital Signs (last 24 hours): Temp Pulse Resp BP Pulse Ox 98.2 F 116 H 24 127/75 96 12/17/17 12:00 12/17/17 14:00 12/17/17 06:00 12/17/17 06:00 12/17/17 06:00 Intake and Output: 12/17/17 12/17/17 06:59 18:59 Intake Total 1500 Output Total 0 Balance 1500 - Medications Medications: Current Medications Famotidine (Pepcid 20mg/50ml Premix) 20 mg in 50 mls @ 100 mls/hr IVPB Q12 [facility] Last Admin: 12/17/17 09:13 Dose: 100 mls/hr Cefepime HCl (Maxipime 1gm) 1 gm in 100 mls @ 100 mls/hr IVPB Q12 [facility] PRN Reason: Protocol Last Admin: 12/17/17 09:20 Dose: 100 mls/hr Vancomycin HCl (Vancomycin 1gm) 1 gm in 250 mls @ 167 mls/hr IVPB Q12H [facility] PRN Reason: Protocol Last Admin: 12/17/17 09:12 Dose: 167 mls/hr Dextrose/Sodium Chloride (Dextrose 5%/0.9% Ns 1000 Ml) 1,000 mls @ 125 mls/hr IV .Q8H [facility] Last Admin: 12/17/17 09:01 Dose: 125 mls/hr Morphine Sulfate (Morphine) 1 mg IVP Q6H PRN PRN Reason: Pain, severe (8-10) Last Admin: 12/17/17 12:55 Dose: 1 mg Ondansetron HCl (Zofran Inj) 4 mg IVP Q6H PRN PRN Reason: Nausea/Vomiting - Labs Labs: 12/17/17 05:55 12/17/17 05:55 - Constitutional Appears: Non-toxic, No Acute Distress, Chronically Ill - Head Exam Head Exam: ATRAUMATIC, NORMOCEPHALIC - ENT Exam ENT Exam: Mucous Membranes Dry, Normal External Ear Exam, TM's Normal Bilaterally - Neck Exam Neck Exam: Full ROM, Normal Inspection. absent: Lymphadenopathy - Respiratory Exam Respiratory Exam: Decreased Breath Sounds. absent: Rales, Rhonchi, Wheezes - Cardiovascular Exam Cardiovascular Exam: Tachycardia, RRR, +S1, +S2 - GI/Abdominal Exam GI & Abdominal Exam: Distended, Firm, Tenderness, Normal Bowel Sounds - Extremities Exam Extremities Exam: Full ROM, Normal Inspection. absent: Joint Swelling, Pedal Edema - Neurological Exam Neurological Exam: Altered Additional comments: lethargy - Skin Skin Exam: Dry, Intact Assessment and Plan - Assessment and Plan (Free Text) Assessment: 47 yo AA female with colon cancer with metastatic disease to the liver. On Vancomycin and Zosyn for antibiotic coverage. 3 days of worsening abdominal pain. She is currently a full code status. The patient has a terminal cancer. Mild leukocytosis. The patient has an altered mental status. Procalcitonin level is 11.45. Procalcitonin elevation may be secondary to her metastatic colon cancer. So in this case, an elevated procalcitonin may not mean an infectious process. Procalcitonin cannot be used to prove or disprove presence of an infection especially in this case. Regardless, the patient's overall prognosis is very poor at this time. Continue IV antibiotics. Supportive care. Dismal long and short term prognosis. Patient's children have agreed to DNI/DNR. Thank you for allowing me to participate in the care of the patient, we will follow with you.
[2017-12-17] MEDS: AMPicillin/Sulbactam 1.5gm 1 GM/100 ML BAG IVPB SCH (21:33)
[2017-12-17] MEDS ORDERED: Linezolid 600 mg in D5W 300 ml 600 MG/300 ML BAG IVPB SCH (22:00)
--- NOTE | 2017-12-18 01:39 | PN ---
DATE: 12/17/2017 CRITICAL CARE PROGRESS NOTE SUBJECTIVE: This 47-year-old female was examined in CCU, bed 4, wirh her sister, Mary and her two brothers, Kkoo and Ernesto. The patient remains lethargic. She is currently a DNR/DNI. She is being followed by Dr. Jessica Jimenez from GI with whom I have had a lengthy discussion regarding her current clinical situation and patient at present remains tachycardic, but afebrile with stable blood pressure and adequate O2 saturations. She remains with metabolic encephalopathy in the setting of marked transaminitis secondary to metastatic colon cancer to her liver and she is being treated supportively with IV antibiotics and IV fluids as well as being followed by Dr. Clif Curiel from Infectious Disease because of urine culture showing gram-positive cocci. PHYSICAL EXAMINATION: VITAL SIGNS: At present on physical exam, temperature was 98.2, respirations 20, pulse 114, blood pressure 137/93 with a pulse ox of 97%. HEENT: Head: Normocephalic, atraumatic. Eyes: No icterus. Ears: Clear. Throat: Noninjected. NECK: Supple. HEART: Rapid S1, S2. LUNGS: Clear. ABDOMEN: Obese. No palpable organomegaly. No rebound, no guarding. No tenderness. EXTREMITIES: No edema. SKIN: Without rash. NEUROLOGIC: With metabolic encephalopathy. VASCULAR: Legs warm to touch. LABORATORY DATA: White count 11,900, hemoglobin 10, hematocrit 31.5, platelets 181,000. Sodium 141, K 3.4, chloride 108, bicarb 24, BUN 18, creatinine 1.0, random blood sugar 134. Bilirubin 7.5, AST 527, ALT 87 and alk phos 257. Ammonia level 17. Nares culture have no MRSA. Blood cultures, no growth at post 24 and 48 hours. Urine C and S, gram-positive cocci. Identification and sensitivity pending. IMPRESSION: A 47-year-old female with metastatic colon cancer to liver, metabolic encephalopathy, lactic acidosis, urinary infection, hypokalemia, anemia of chronic disease, improving leukocytosis. PLAN: As discussed with the patient, Dr. Jimenez and chip crusher operator, Dr. Foster, will be to continue IV fluids of D5 0.9 at 125 mL/hour. She continues on Pepcid 20 mg IV q. 12, vancomycin 1 g IV q. 12, Maxipime 1 g IV q. 12. Pending official urine C and S results. She is n.p.o. She remains DNR/DNI. She will be treated supportively, but not intubated or cardiac resuscitated. I had a lengthy bedside discussion with her siblings and have advised them that given their sister's young aggressive metastatic colon cancer at age 47 that they all should be followed for colonoscopy and genetic screening and counseling. This should include all siblings and family members including children and brothers and sisters regarding screening for familial colon cancer syndrome. Patient's overall prognosis remains extremely poor, but patient will be treated in a supportive and compassionate way. Greater than 1 hour was spent in the care management and discussion of this patient's case today. All questions were answered. Karol Banks MD [facility]
[2017-12-18] MEDS: Dextrose 5%/0.9% NS 1,000 ML IV SCH ×2 (03:14→09:27)
[2017-12-18] MEDS: Morphine 2 mg/ml ISec IVP PRN ×3 (03:14→22:07)
[2017-12-18] MEDS: AMPicillin/Sulbactam 1.5gm 1 GM/100 ML BAG IVPB SCH ×3 (05:31→21:59)
[2017-12-18] MEDS: Famotidine 20mg/50ml 20 MG/50 ML BAG IVPB SCH ×2 (10:03→22:00)
--- NOTE | 2017-12-18 12:49 | PN ---
DATE: 12/18/2017 REWEAVER NOTE SUBJECTIVE: The patient is resting in bed with O2 via nasal cannula and getting IV fluids. She does responsive to the spoken word. It is noted that her urine output is very poor. The patient does have some lethargy. PHYSICAL EXAMINATION VITAL SIGNS: Temperature is 98.4, pulse is 100, respirations 16, and BP is 118/77, O2 saturation is 96% on room air. HEENT: Head is atraumatic, normocephalic. Eyes reactive to light. Ears, nose and throat seem to be within normal limits. NECK: Supple. No JVD. No thyroid enlargement, no lymph nodes. HEART: Has regular rate and rhythm. Normal S1, S2. LUNGS: Reveal decreased breath sounds at the bases bilaterally with occasional rhonchi. ABDOMEN: Soft. Decreased bowel sounds. GENITALIA AND RECTAL: Deferred. MUSCULOSKELETAL: No joint deformities. EXTREMITIES: Reveal positive edema. NEUROLOGIC: She seems lethargic, but does move her extremities. LABORATORY DATA: As far as the laboratories are concerned, the patient's laboratories for today are pending. IMPRESSION: The patient has a history of colon cancer with metastatic lesions to the liver. She has possible metabolic encephalopathy with anemia and right lower lobe atelectasis. Note the patient is a DNR and DNI. PLAN: We will continue with IV fluids. The patient is on O2 via nasal cannula and getting cefepime as an antibiotic. She is getting morphine for pain as well as vancomycin and Zosyn and we will continue to treat aggressively along with the other consultants and the primary care doctor. Eddi Foster MD
[2017-12-18] MEDS: Potassium Chloride 20 MEQ in Dextrose 5%/0.9% NS 1,000 ML IV SCH (15:13)
[2017-12-18 15:56] LABS: BASO # 0.02 K/mm3 (0.0-2.0); BASO % 0.2 % (0.0-3.0); EOS # 0.1 (0.0-0.7); EOS % 0.4 % (1.5-5.0); GRAN # 9.65 (1.4-6.5); GRAN % 82.8 % (50.0-68.0); HEMOGLOBIN 10.4 g/dL (12.0-16.0); LYMPH # 0.9 (1.2-3.4); LYMPH % 7.9 % (22.0-35.0); MEAN CORPUSCULAR HEMOGLOBIN 31.2 pg (25.0-35.0); MEAN CORPUSCULAR HGB CONC 31.2 g/dl (31.0-37.0); MEAN PLATELET VOLUME 10.8 fl (7.0-11.0); MONO % 8.7 % (1.0-6.0); RBC 3.33 10^6/uL (3.5-6.1); RED CELL DISTRIBUTION WIDTH 21.8 % (11.5-14.5); WHITE BLOOD COUNT 11.7 10^3/ul (4.5-11.0)
[2017-12-18 16:10] LABS: ALB/GLOB RATIO 0.6 (1.1-1.8); ALBUMIN 2.4 g/dL (3.0-4.8); ALT/SGPT 78 U/L (7-56); AST/SGOT 344 U/L (14-36); BLOOD UREA NITROGEN 20 mg/dL (7-21); CALCIUM 9.1 mg/dL (8.4-10.5); GFR AFRICAN-AMERICAN > 60; GFR NON-AFRICAN AMERICAN > 60
--- NOTE | 2017-12-18 17:45 | CP.PCM.PN ---
Subjective - Date & Time of Evaluation Date of Evaluation: 12/18/17 Time of Evaluation: 15:00 - Subjective Subjective: Infectious Disease Follow Up: December 18, 2017 47 year old female with past medical history of colon cancer with metastasis to the liver, diverticulitis, obesity, and chronic gastritis presents to the hospital for 3 day history of worsening abdominal pain. Patient was very lethargic during exam and unable to answer all questions. Much of history provided is from prior medical records. Patient has abdominal pain at baseline, but it is now much worse in the RLQ. Patient very lethargic on exam. Responds to painful stimuli. ROS unobtainable due to altered mental status. Many family member at bedside. Family appears to be coming to term with the severity of the patient's illnesses. The children have agreed to DNR and DNI. Enterococcus grew in urine cultures sensitive to Ampicillin. Objective - Vital Signs/Intake and Output Vital Signs (last 24 hours): Temp Pulse Resp BP Pulse Ox 98.1 F 103 H 17 112/75 97 12/18/17 16:00 12/18/17 16:00 12/18/17 16:00 12/18/17 16:00 12/18/17 16:00 - Medications Medications: Current Medications Famotidine (Pepcid 20mg/50ml Premix) 20 mg in 50 mls @ 100 mls/hr IVPB Q12 [facility] Last Admin: 12/18/17 10:03 Dose: 100 mls/hr Ampicillin Sodium/Sulbactam Sodium (Unasyn) 1 gm in 100 mls @ 100 mls/hr IVPB Q8 [facility] PRN Reason: Protocol Last Admin: 12/18/17 14:17 Dose: 100 mls/hr Potassium Chloride 20 meq/ (Dextrose/Sodium Chloride) 1,010 mls @ 60 mls/hr IV .[id number] [facility] Last Admin: 12/18/17 15:13 Dose: 60 mls/hr Morphine Sulfate (Morphine) 1 mg IVP Q6H PRN PRN Reason: Pain, severe (8-10) Last Admin: 12/18/17 10:52 Dose: 1 mg Ondansetron HCl (Zofran Inj) 4 mg IVP Q6H PRN PRN Reason: Nausea/Vomiting - Labs Labs: 12/18/17 15:30 03/11/18 15:30 - Constitutional Appears: No Acute Distress, Chronically Ill - Head Exam Head Exam: ATRAUMATIC, NORMOCEPHALIC - Eye Exam Eye Exam: EOMI, PERRL Pupil Exam: NORMAL ACCOMODATION, PERRL - ENT Exam ENT Exam: Mucous Membranes Moist, Normal External Ear Exam, TM's Normal Bilaterally - Neck Exam Neck Exam: Full ROM, Normal Inspection - Respiratory Exam Respiratory Exam: Decreased Breath Sounds, NORMAL BREATHING PATTERN. absent: Rales, Rhonchi, Wheezes - Cardiovascular Exam Cardiovascular Exam: Tachycardia, RRR, +S1, +S2 - GI/Abdominal Exam GI & Abdominal Exam: Soft, Normal Bowel Sounds. absent: Distended, Tenderness - Extremities Exam Extremities Exam: Full ROM, Normal Inspection. absent: Joint Swelling, Pedal Edema - Neurological Exam Neurological Exam: Altered Additional comments: lethargy. - Psychiatric Exam Additional comments: fatigued, generally weak. - Skin Skin Exam: Dry, Intact Assessment and Plan - Assessment and Plan (Free Text) Assessment: 47 yo AA female with colon cancer with metastatic disease to the liver. On Vancomycin and Zosyn for antibiotic coverage. 3 days of worsening abdominal pain. She is currently a full code status. The patient has a terminal cancer. Mild leukocytosis. The patient has an altered mental status. Procalcitonin level is 11.45. Procalcitonin elevation may be secondary to her metastatic colon cancer. So in this case, an elevated procalcitonin may not mean an infectious process. Procalcitonin cannot be used to prove or disprove presence of an infection especially in this case. Regardless, the patient's overall prognosis is very poor at this time. Enterococcus in urine cultures. Switched antibiotics to Unasyn IV. Continue IV antibiotics. Supportive care. Dismal long and short term prognosis. Patient's children have agreed to DNI/DNR. Thank you for allowing me to participate in the care of the patient, we will follow with you.
--- NOTE | 2017-12-18 19:17 | PN ---
DATE: 12/18/2017 CRITICAL CARE PROGRESS NOTE SUBJECTIVE: This 47-year-old female remains in CCU, bed 4 at the bedside were her 3 sons and this case was reviewed in detail with her critical care nurse and family at bedside. The patient is more alert, less in pain, and is able to answer questions more appropriately and follow verbal commands. At present, she remains n.p.o. but receiving IV fluids. PHYSICAL EXAMINATION: GENERAL: She remains with a sinus tachycardia. VITAL SIGNS: Showing temperature 97.4, respirations 20, pulse 104, and blood pressure 125/84 with a pulse ox of 100%. HEENT: Head: Normocephalic, atraumatic. Eyes: No icterus. Ears: Clear. Throat: Noninjected. NECK: Supple. HEART: Regular S1, S2. LUNGS: Clear. ABDOMEN: Obese. No rebound. No guarding. No tenderness. EXTREMITIES: A 1+ edema. SKIN: Without rash. NEUROLOGICAL: Less lethargy. VASCULAR: Legs warm to touch. LABORATORY DATA: White count 11,900, hemoglobin 10, hematocrit 31.5, platelets 181,000. Random blood sugar 112. Ammonia level 17, normal. Sodium 141, K 3.4, chloride 108, bicarb 24, BUN 18, creatinine 1.0. Total bilirubin 7.5, AST 527, ALT 87, and alkaline phosphatase 257. Urine culture is showing Enterococcus faecalis, sensitive to both ampicillin and vancomycin. Nasal culture, no MRSA detected. Blood cultures, no growth at both 48 and 72 hours. IMPRESSION: This is a 47-year-old female with stage IV metastatic colon cancer to liver with metabolic encephalopathy, urinary tract infection, anemia of chronic disease. PLAN: As discussed with family and nursing, will be to continue D5 0.9 saline with 20 mEq of KCl per liter at 60 mL/hour. The patient will receive Lasix 20 mg IV x1 dose. If there is any difficulty with voiding, a urinary catheter will be placed. She is ordered to have 1 mg of morphine IV q. 6 hours p.r.n. severe pain, Pepcid 20 mg IV q. 12, Unasyn 1.5 g IV q. 8 hours, and Zofran 4 mg IV q. 6 hours p.r.n. nausea, vomiting. She remains n.p.o. and will have a repeat basic metabolic panel in the a.m. I did have a lengthy discussion with her 3 sons at the bedside and they are clearly informed of the need for them to follow up with their PMD regarding genetic screening and counseling for familial colon cancer syndrome given their mother's aggressive metastatic colon cancer at the age of 48. Hopefully, they will be compliant with this recommendation as was given to her brothers and sisters yesterday. The patient remains comfortable and overall prognosis remains extremely poor. Greater than 60 minutes was spent in the care, management, review of labs, orders, and discussion of this patient with family and nursing today. All questions were answered. Karol Banks MD [facility]
--- NOTE | 2017-12-18 21:43 | PN ---
DATE:12/18/2017 SUBJECTIVE: This patient was seen and evaluated earlier. Appears more alert. She is still receiving morphine 1 mg q. 6 hourly. PHYSICAL EXAMINATION: VITAL SIGNS: Temperature is afebrile, pulse 108, blood pressure 114/76, respirations 17, O2 saturation 98%. HEENT: Atraumatic. Anicteric. NECK: Supple. HEART: S1 and S2 heard. LUNGS: Bilateral air entry present. ABDOMEN: Diffuse tenderness present. No rebound or guarding. EXTREMITIES: Bilateral pitting pedal edema present. NEUROLOGICAL: More alert than before. LABORATORY DATA: Hemoglobin 10.4, hematocrit 33, WBC is , platelets 163. Ammonia 28, potassium is 3.1, sodium 146. AST 344, ALT 78, alkaline phosphatase 228. IMPRESSION: This 47-year-old patient with extensive metastatic disease admitted with sepsis, metabolic encephalopathy, and diffuse abdominal pain. Patient has Enterococcus faecalis in the urine, she is on Unasyn antibiotics. Mildly elevated ammonia level, which came down to 17, now it is 28. The CT scan was reviewed, large extensive metastatic disease noticed, especially involvement of the liver. RECOMMENDATIONS: 1. Urinary tract infection. Continue the antibiotics as per Infectious Disease. 2. Metabolic encephalopathy. 3. Diffuse abdominal pain. Patient has extensive disease. We need to rule out Budd-Chiari in this patient, requested for an ultrasound scan of the abdomen to evaluate the hepatic vein. 4. Advanced colon cancer. The patient's family was counseled about the need for colonoscopic evaluation and possibly genetic counselling supplement potassium. Overall prognosis of the patient remains poor. Thank you very much for allowing us to participate in the care of the patient. Jessica Jimenez MD [facility]
[2017-12-19] MEDS: Morphine 2 mg/ml ISec IVP PRN ×3 (05:10→20:32)
[2017-12-19] MEDS: AMPicillin/Sulbactam 1.5gm 1 GM/100 ML BAG IVPB SCH ×3 (05:11→22:23)
[2017-12-19] MEDS: Potassium Chloride 20 MEQ in Dextrose 5%/0.9% NS 1,000 ML IV SCH (06:37)
[2017-12-19 06:43] LABS: BLOOD UREA NITROGEN 20 mg/dL (7-21); CALCIUM 9.4 mg/dL (8.4-10.5); GFR AFRICAN-AMERICAN > 60; GFR NON-AFRICAN AMERICAN > 60
--- NOTE | 2017-12-19 09:47 | PN ---
DATE: 12/17/2017 SUBJECTIVE: This patient was seen and evaluated earlier today. The patient's family was at bedside. The patient is more alert now. The patient has been on low-dose narcotics, only morphine 1 mg q. 6 hourly p.r.n. for pain. PHYSICAL EXAMINATION: VITAL SIGNS: Her heart rate is 115, blood pressure 122/72, respirations 20, O2 saturation is 95%. HEENT: Jaundiced. NECK: Supple. HEART: S1 and S2 heard. Tachycardic. LUNGS: Bilateral air entry present. ABDOMEN: Softly distended. Diffuse tenderness present. Hepatomegaly present. EXTREMITIES: Bilateral pitting pedal edema present. NEUROLOGICAL: The patient still appears lethargic. Able to partially respond to verbal commands. The patient was able to recognize the family. LABORATORY DATA: Hemoglobin 10, hematocrit 31.5, WBC is 11, platelets 181. Chemistry showed total bilirubin went up to 7.5, AST 527, ALT is 87, alkaline phosphatase is 257, albumin 2.4, potassium 3.4. The CT done before was also reviewed again. CT of the chest was also reviewed. Significantly enlarged liver with hepatomegaly The patient does have a large amount of stool above the anastomotic area. IMPRESSION: This is a 47-year-old patient with colon cancer metastatic disease, extensive involvement of the liver, presents with acute abdominal pain with urinary tract infection and had worsening of the hepatic function. The patient's ammonia level has been normal now. Part of the mental status changes could be due to the narcotic induced and also severe sepsis. Less likely could be hepatic encephalopathy, but it should be considered in the differential diagnosis. The lactulose enema was on hold, it was canceled yesterday because of the acute abdominal pain and the plan was to consider Dobhoff tube and lactulose if needed since the patient's condition slightly improved with low ammonia level, we will hold off.Dobhoff tubleplax RECOMMENDATIONS: We would recommend: 1. Continue the antibiotics. 2. The another differential diagnosis to be considered in this patient hepatic Budd-Chiari syndrome. Would request abdominal Doppler to evaluate the hepatic veins and also the portal vein. 3. The patient is presently DNR. Overall prognosis is poor. We will continue to closely follow up her care and suggest further management based on the clinical course. Jessica Jimenez MD [facility] # [id number] [facility]
[2017-12-19] MEDS: Famotidine 20mg/50ml 20 MG/50 ML BAG IVPB SCH ×2 (12:09→21:47)
--- NOTE | 2017-12-19 15:31 | PN ---
DATE: 12/19/2017 SUBJECTIVE: This 47-year-old female remains hospitalized with multiple medical problems including stage IV metastatic colon cancer to her liver with metabolic encephalopathy, electrolyte imbalance and marked deconditioning. I have discussed this case in detail with her nurse, Ariana, earlier this morning and the patient continues to complain of diffuse abdominal pain and is scheduled for an abdominal duplex ultrasound to rule out portal vein thrombosis. The patient has electrolyte imbalances at present including hypernatremia and hypokalemia and we will have her IV fluids and IV potassium adjusted. She is ordered to have oral diet and lactulose when cleared by swallowing evaluation and because of improved mental status, will have a swallowing evaluation today. Of note, the patient remains DNR/DNI and is being treated supportively with IV fluids and parenteral analgesia. PHYSICAL EXAMINATION VITAL SIGNS: She remains in sinus tachycardia with temperature 98.3, respirations 18, pulse 106 and blood pressure 122/84 with a pulse oximetry of 98%. Urine output was 100 mL earlier today. HEENT: Head: Normocephalic, atraumatic. Eyes: No icterus. Ears: Clear. Throat: Noninjected. NECK: Supple. HEART: Regular S1, S2. LUNGS: Clear. ABDOMEN: Obese, nontender. No rebound, no guarding. EXTREMITIES: A 1+ edema. SKIN: Without rash. NEUROLOGICAL: Markedly deconditioned. VASCULAR: Legs, warm to touch. PSYCHOLOGICAL: More alert and responsive. LABORATORY DATA: White count 11,700, hemoglobin 10.4, hematocrit 33.3, platelets 163,000. Sodium 149, potassium 3.1, chloride 114, bicarbonate 22, BUN 20, creatinine 0.8, random blood sugar 104, calcium 9.4. Liver enzymes are elevated with bilirubin 8.2, AST 344, ALT 78 and alkaline phosphatase 228. Microbiology report shows repeat urine culture from 12/17/2017, no growth. The previous urine culture from 12/15/2017, Enterococcus faecalis and sensitive to both vancomycin and ampicillin. There was no MRSA detected from her nares and blood cultures are negative. IMPRESSION This is a 47-year-old female with urinary tract infection, metabolic encephalopathy in the setting of stage IV metastatic colon cancer to liver with comorbidities of electrolyte imbalance including hypernatremia, hypokalemia and anemia of chronic disease, also with marked deconditioning and debility. The plan as discussed with the patient, family, nursing and Dr. Jimenez from will be to order a swallowing evaluation and to advance diet as able. She also will continue on adjusted IV fluids of D5W at 100 mL/hour as well as potassium chloride riders with a repeat basic metabolic panel ordered for the morning. She is ordered to have morphine 1 mg IV q. 6 hours p.r.n. severe pain, Pepcid 20 mg IV q. 12h. and Unasyn 1.5 g IV piggyback q. 8 hours for previous Enterococcus faecalis urinary tract infection. She is also ordered to have Zofran 4 mg IV q. 6 hours p.r.n. nausea, vomiting. She is ordered to be out of bed to chair with evaluation for physical therapy and the patient will be treated supportively; however, overall prognosis remains extremely poor. She continues to be a DNR/DNI and disposition will be decided based on clinical progress. Greater than 35 minutes was spent in the care management, review of labs and discussion of this patient's care with nursing and Dr. Jimenez from Karol Banks MD MTDD
--- NOTE | 2017-12-19 18:14 | CP.PCM.PN ---
Subjective - Date & Time of Evaluation Date of Evaluation: 12/19/17 Time of Evaluation: 16:15 - Subjective Subjective: Infectious Disease Follow Up: December 19, 2017 47 year old female with past medical history of colon cancer with metastasis to the liver, diverticulitis, obesity, and chronic gastritis presents to the hospital for 3 day history of worsening abdominal pain. Patient was very lethargic during exam and unable to answer all questions. Much of history provided is from prior medical records. Patient has abdominal pain at baseline, but it is now much worse in the RLQ. Patient very lethargic on exam. Responds to painful stimuli. ROS unobtainable due to altered mental status. Many family member at bedside. Family appears to be coming to term with the severity of the patient's illnesses. The children have agreed to DNR and DNI. Enterococcus grew in urine cultures sensitive to Ampicillin. Patient is currently on Unasyn. Still fatigued but responds to name. Objective - Vital Signs/Intake and Output Vital Signs (last 24 hours): Temp Pulse Resp BP Pulse Ox 98.3 F 106 H 18 122/84 98 12/19/17 08:26 12/19/17 08:26 12/19/17 08:26 12/19/17 08:26 12/19/17 08:26 Intake and Output: 12/19/17 12/19/17 06:59 18:59 Intake Total 0 Output Total 100 Balance -100 - Medications Medications: Current Medications Famotidine (Pepcid 20mg/50ml Premix) 20 mg in 50 mls @ 100 mls/hr IVPB Q12 [facility] Last Admin: 12/19/17 12:09 Dose: 100 mls/hr Ampicillin Sodium/Sulbactam Sodium (Unasyn) 1 gm in 100 mls @ 100 mls/hr IVPB Q8 [facility] PRN Reason: Protocol Last Admin: 12/19/17 14:04 Dose: 100 mls/hr Dextrose (Dextrose 5% In Water 1000 Ml) 1,000 mls @ 100 mls/hr IV .Q10H [facility] Last Admin: 12/19/17 12:09 Dose: 100 mls/hr Morphine Sulfate (Morphine) 1 mg IVP Q6H PRN PRN Reason: Pain, severe (8-10) Last Admin: 12/19/17 12:08 Dose: 1 mg Ondansetron HCl (Zofran Inj) 4 mg IVP Q6H PRN PRN Reason: Nausea/Vomiting - Labs Labs: 12/18/17 15:30 12/19/17 05:35 - Constitutional Appears: No Acute Distress, Chronically Ill - Head Exam Head Exam: ATRAUMATIC, NORMOCEPHALIC - Eye Exam Eye Exam: EOMI, PERRL Pupil Exam: NORMAL ACCOMODATION, PERRL - ENT Exam ENT Exam: Mucous Membranes Moist, Normal External Ear Exam, TM's Normal Bilaterally - Neck Exam Neck Exam: Full ROM, Normal Inspection - Respiratory Exam Respiratory Exam: Decreased Breath Sounds, NORMAL BREATHING PATTERN. absent: Rales, Rhonchi, Wheezes - Cardiovascular Exam Cardiovascular Exam: REGULAR RHYTHM, RRR, +S1, +S2 - GI/Abdominal Exam GI & Abdominal Exam: Soft, Normal Bowel Sounds. absent: Distended, Tenderness - Extremities Exam Extremities Exam: Full ROM, Normal Inspection. absent: Joint Swelling, Pedal Edema - Neurological Exam Neurological Exam: Altered Additional comments: AAO x 1 at best. fatigued. - Psychiatric Exam Additional comments: fatigued, generally weak. - Skin Skin Exam: Dry, Intact Assessment and Plan - Assessment and Plan (Free Text) Assessment: 47 yo AA female with colon cancer with metastatic disease to the liver. On Vancomycin and Zosyn for antibiotic coverage. 3 days of worsening abdominal pain. She is currently a full code status. The patient has a terminal cancer. Mild leukocytosis. The patient has an altered mental status. Procalcitonin level is 11.45. Procalcitonin elevation may be secondary to her metastatic colon cancer. So in this case, an elevated procalcitonin may not mean an infectious process. Procalcitonin cannot be used to prove or disprove presence of an infection especially in this case. Regardless, the patient's overall prognosis is very poor at this time. Currently she is responsive to name. Heavily fatigued. Enterococcus in urine cultures. Continue antibiotics of Unasyn IV. Supportive care. Dismal long and short term prognosis. Patient's children have agreed to DNI/DNR. Thank you for allowing me to participate in the care of the patient, we will follow with you.
--- NOTE | 2017-12-19 20:26 | US ---
PROCEDURE: Portal vein duplex ultrasound. CLINICAL HISTORY: Deteriorating liver function. Evaluate for portal vein thrombosis. PHYSICIAN(S): Curtis Al M.D. FINDINGS: There are multiple large heterogeneous masses in the liver. This is consistent with metastatic disease. Extrahepatic portal vein is patent with normal velocities and waveforms. The is a hepatopetal flow. Hepatic artery is small and patent. Limited the images of the central hepatic veins are patent IMPRESSION: 1. Patent portal vein with hepatopetal flow. 2. Multiple hepatic metastasis
--- NOTE | 2017-12-20 04:10 | PN ---
DATE:12/19/2017 SUBJECTIVE: This patient was seen and evaluated earlier. The patient appears much more comfortable. The patient appears more alert. Responds to verbal commands and communicates better. PHYSICAL EXAMINATION GENERAL: Patient appears more alert. VITAL SIGNS: Temperature 98.3, pulse 106, blood pressure 122/84, respirations 18, O2 saturation 98%. HEENT: Atraumatic, jaundiced. NECK: Supple. HEART: S1 and S2 heard. LUNGS: Bilateral air entry present, reduced at the base. ABDOMEN: Diffuse tenderness present, significant improved compared to before, and hepatomegaly. EXTREMITIES: Bilateral pedal edema present. Now, the patient appears more alert. Moves all the extremities. LABORATORY DATA: Hemoglobin 10.4, hematocrit 33.3, WBC 11.7, platelets 163. Total bilirubin has gone up to 34. , ALT 78, total protein is 6.4, albumin 2.4. The potassium today still remains 3.1. Requested abdominal Doppler to evaluate the hepatic vein and the portal vein to rule out Budd-Chiari. The study appears to be limited. The pancreatic veins could not be identified well. Limited study. Only central hepatic veins were patent. IMPRESSION: This 47-year-old patient with advanced metastatic colon cancer, admitted with intractable abdominal pain, now has worsening of the sepsis, urinary tract infection, now has worsening of the hepatic function. The differential diagnosis should include extensive liver metastasis, in addition rule out underlying sepsis, Budd-Chiari and extensive tumor involvement also to be considered and also drug-induced component could also be. The patient is presently on Unasyn. This also partly could be contributory. The patient was septic. RECOMMENDATIONS: 1. Followup of the LFTs. 2. A dose of lactulose was given and the patient has a large amount of stool above the anastomosis. He would benefit from the gentle stool softeners. 3. We will discuss with ID regarding the antibiotics. Close followup of the LFTs. Overall prognosis of the patient remains poor. Jessica Jimenez MD [facility]
[2017-12-20] MEDS: Morphine 2 mg/ml ISec IVP PRN ×4 (04:28→21:58)
[2017-12-20] MEDS: AMPicillin/Sulbactam 1.5gm 1 GM/100 ML BAG IVPB SCH ×3 (05:41→23:00)
[2017-12-20 06:57] LABS: BLOOD UREA NITROGEN 21 mg/dL (7-21); CALCIUM 9.1 mg/dL (8.4-10.5); GFR AFRICAN-AMERICAN > 60; GFR NON-AFRICAN AMERICAN > 60
[2017-12-20] MEDS: Famotidine 20mg/50ml 20 MG/50 ML BAG IVPB SCH ×2 (09:54→21:59)
--- NOTE | 2017-12-20 17:23 | PN ---
DATE: 12/20/2017 SUBJECTIVE: This 47-year-old female was examined at her bedside and this case was reviewed in detail with her nurse, Renuka Gregorio, registered nurse. The patient is more alert. She is asking for water. According to her medical record, she was evaluated by Speech Therapy yesterday and was unable to have a successful swallowing eval because she could not have the head of her bed elevated, which would make her at increased risk of aspiration. They agreed to reevaluate the patient today if she was able to sit up for the evaluation. I have asked her nurse to call Speech Therapy again at present to effect this evaluation. PHYSICAL EXAMINATION: At present; VITAL SIGNS: Temperature 97.9, respirations 20, pulse 96, and blood pressure 119/71. Normal sinus rhythm on the media monitor with a pulse ox of 98%. HEENT: Head: Normocephalic, atraumatic. Eyes: No icterus. Ears: Clear. Throat: Noninjected. NECK: Supple. HEART: Regular, S1 and S2. LUNGS: Clear. ABDOMEN: Obese, nontender. No palpable organomegaly. No rebound, no guarding, no tenderness. EXTREMITIES: No edema. SKIN: Without rash. NEUROLOGIC: Deconditioned but moving all extremities. PSYCHOLOGIC: More alert. VASCULAR: Legs warm to touch. LABORATORY DATA: White count 11,700, hemoglobin 10.4, hematocrit 33.3, and platelets 163,000. Sodium 148, K 3.7, chloride 115, bicarb 20. BUN 21, creatinine 0.9. Random blood sugar 99. Ammonia level 18. Abdominal ultrasound was reviewed, which showed a patent portal vein with hepatopetal flow and multiple hepatic metastases in this patient with known metastatic colon cancer. IMPRESSION: A 47-year-old female admitted with metabolic encephalopathy in the setting of advanced colon cancer, metastatic to liver with electrolyte imbalances including hypernatremia, hypokalemia, also with anemia of chronic disease, and Enterococcus faecalis urinary tract infection sensitive to ampicillin. The plan, as discussed with the patient, family, and Nursing as well as co-consultants from GI, Hematology/Oncology, and Infectious Disease, will be to proceed with D5W at 100 mL/hour and ordering morphine 1 mg IV q. 6 hours p.r.n. severe pain. She continues on Pepcid 20 mg IV q.12, Unasyn 1.5 g IV piggyback q. 8 hours, Zofran 4 mg IV q. 6 hours p.r.n. nausea and vomiting. She remains n.p.o. until she can successfully complete a swallowing eval, and will remain on fall and aspiration precautions. I have asked the nursing staff to get her out of bed to chair as able and for physical therapy when able and the patient remains a DNR/DNI and overall prognosis remains poor. Greater than 35 minutes was spent in the care management, review of labs, x-rays, medications, orders, and discussion of this patient today with herself and Nursing. All questions were answered. Karol Banks MD MTDD
--- NOTE | 2017-12-20 19:01 | CP.PCM.PN ---
Subjective - Date & Time of Evaluation Date of Evaluation: 12/20/17 Time of Evaluation: 15:30 - Subjective Subjective: Infectious Disease Follow Up: December 20, 2017 47 year old female with past medical history of colon cancer with metastasis to the liver, diverticulitis, obesity, and chronic gastritis presents to the hospital for 3 day history of worsening abdominal pain. Patient was very lethargic during exam and unable to answer all questions. Much of history provided is from prior medical records. Patient has abdominal pain at baseline, but it is now much worse in the RLQ. Patient very lethargic on exam. Responds to painful stimuli. ROS unobtainable due to altered mental status. Many family member at bedside. Family appears to be coming to term with the severity of the patient's illnesses. The children have agreed to DNR and DNI. Enterococcus grew in urine cultures sensitive to Ampicillin. Patient is currently on Unasyn. Some fatigue but patient is overall more responsive and can hold short conversations. Objective - Vital Signs/Intake and Output Vital Signs (last 24 hours): Temp Pulse Resp BP Pulse Ox 97.6 F 106 H 20 117/80 98 12/20/17 16:00 12/20/17 16:00 12/20/17 16:00 12/20/17 16:00 12/20/17 16:00 Intake and Output: 12/20/17 12/20/17 06:59 18:59 Intake Total 0 Output Total 100 Balance -100 - Medications Medications: Current Medications Famotidine (Pepcid 20mg/50ml Premix) 20 mg in 50 mls @ 100 mls/hr IVPB Q12 [facility] Last Admin: 12/20/17 09:54 Dose: 100 mls/hr Ampicillin Sodium/Sulbactam Sodium (Unasyn) 1 gm in 100 mls @ 100 mls/hr IVPB Q8 [facility] PRN Reason: Protocol Last Admin: 12/20/17 14:26 Dose: 100 mls/hr Dextrose (Dextrose 5% In Water 1000 Ml) 1,000 mls @ 100 mls/hr IV .Q10H [facility] Last Admin: 12/20/17 04:26 Dose: 100 mls/hr Morphine Sulfate (Morphine) 1 mg IVP Q6 PRN PRN Reason: Pain, moderate (4-7) Last Admin: 12/20/17 15:58 Dose: 1 mg Ondansetron HCl (Zofran Inj) 4 mg IVP Q6H PRN PRN Reason: Nausea/Vomiting - Labs Labs: 12/18/17 15:30 12/20/17 06:00 - Constitutional Appears: No Acute Distress, Chronically Ill - Head Exam Head Exam: ATRAUMATIC, NORMOCEPHALIC - Eye Exam Eye Exam: EOMI, PERRL Pupil Exam: NORMAL ACCOMODATION, PERRL - ENT Exam ENT Exam: Mucous Membranes Moist, Normal External Ear Exam, TM's Normal Bilaterally - Neck Exam Neck Exam: Full ROM, Normal Inspection - Respiratory Exam Respiratory Exam: Clear to Ausculation Bilateral, NORMAL BREATHING PATTERN. absent: Rales, Rhonchi, Wheezes - Cardiovascular Exam Cardiovascular Exam: REGULAR RHYTHM, RRR, +S1, +S2 - GI/Abdominal Exam GI & Abdominal Exam: Soft, Normal Bowel Sounds. absent: Distended, Tenderness - Extremities Exam Extremities Exam: Full ROM, Normal Inspection - Neurological Exam Neurological Exam: Alert, Awake Additional comments: fatigued. AAO x 2-3 - Psychiatric Exam Psychiatric exam: Normal Affect, Normal Mood - Skin Skin Exam: Dry, Intact Assessment and Plan - Assessment and Plan (Free Text) Assessment: 47 yo AA female with colon cancer with metastatic disease to the liver. On Vancomycin and Zosyn for antibiotic coverage. 3 days of worsening abdominal pain. She is currently a full code status. The patient has a terminal cancer. Mild leukocytosis. The patient has an altered mental status. Procalcitonin level is 11.45. Procalcitonin elevation may be secondary to her metastatic colon cancer. So in this case, an elevated procalcitonin may not mean an infectious process. Procalcitonin cannot be used to prove or disprove presence of an infection especially in this case. Regardless, the patient's overall prognosis is very poor at this time. Currently she is responsive to name. Heavily fatigued. Enterococcus in urine cultures. Continue antibiotics of Unasyn IV. Supportive care. Dismal long and short term prognosis. Patient's children have agreed to DNI/DNR. The patient mentation has improved. Liver function to be rechecked as last values were elevated on 12/18/2017 and appeared to be downtrending at that time. The elevated liver function likely secondary to the liver metastatic disease. Thank you for allowing me to participate in the care of the patient, we will follow with you.
[2017-12-21] MEDS: AMPicillin/Sulbactam 1.5gm 1 GM/100 ML BAG IVPB SCH ×3 (05:30→21:54)
[2017-12-21 06:24] LABS: HEMOGLOBIN 10.8 g/dL (12.0-16.0); MEAN CELL VOLUME 99.7 fl (80.0-105.0); MEAN CORPUSCULAR HEMOGLOBIN 31.8 pg (25.0-35.0); MEAN CORPUSCULAR HGB CONC 31.9 g/dl (31.0-37.0); MEAN PLATELET VOLUME 11.2 fl (7.0-11.0); RBC 3.4 10^6/uL (3.5-6.1); RED CELL DISTRIBUTION WIDTH 22.4 % (11.5-14.5); WHITE BLOOD COUNT 14.2 10^3/ul (4.5-11.0)
[2017-12-21 07:20] LABS: ALB/GLOB RATIO 0.6 (1.1-1.8); ALBUMIN 2.5 g/dL (3.0-4.8); ALT/SGPT 64 U/L (7-56); AST/SGOT 156 U/L (14-36); BLOOD UREA NITROGEN 21 mg/dL (7-21); CALCIUM 9.3 mg/dL (8.4-10.5); GFR AFRICAN-AMERICAN > 60; GFR NON-AFRICAN AMERICAN > 60
[2017-12-21] MEDS: Famotidine 20mg/50ml 20 MG/50 ML BAG IVPB SCH ×2 (09:42→21:53)
[2017-12-21] MEDS: Morphine 2 mg/ml ISec IVP PRN ×3 (09:49→23:08)
--- NOTE | 2017-12-21 13:50 | CP.PCM.PN ---
Subjective - Date & Time of Evaluation Date of Evaluation: 12/21/17 Time of Evaluation: 12:30 - Subjective Subjective: Infectious Disease Follow Up: December 21, 2017 47 year old female with past medical history of colon cancer with metastasis to the liver, diverticulitis, obesity, and chronic gastritis presents to the hospital for 3 day history of worsening abdominal pain. Patient was very lethargic during exam and unable to answer all questions. Much of history provided is from prior medical records. Patient has abdominal pain at baseline, but it is now much worse in the RLQ. Patient very lethargic on exam. Responds to painful stimuli. ROS unobtainable due to altered mental status. Many family member at bedside. Family appears to be coming to term with the severity of the patient's illnesses. The children have agreed to DNR and DNI. Enterococcus grew in urine cultures sensitive to Ampicillin. Patient is currently on Unasyn. Some fatigue but patient is overall more responsive and can hold short conversations. Objective - Vital Signs/Intake and Output Vital Signs (last 24 hours): Temp Pulse Resp BP Pulse Ox 98.7 F 109 H 20 135/82 97 12/21/17 06:00 12/21/17 06:00 12/21/17 06:00 12/21/17 01:00 12/21/17 06:00 Intake and Output: 12/21/17 12/21/17 06:59 18:59 Intake Total 550 0 Output Total 300 175 Balance 250 -175 - Medications Medications: Current Medications Famotidine (Pepcid 20mg/50ml Premix) 20 mg in 50 mls @ 100 mls/hr IVPB Q12 [facility] Last Admin: 12/21/17 09:42 Dose: 100 mls/hr Ampicillin Sodium/Sulbactam Sodium (Unasyn) 1 gm in 100 mls @ 100 mls/hr IVPB Q8 [facility] PRN Reason: Protocol Last Admin: 12/21/17 05:30 Dose: 100 mls/hr Dextrose (Dextrose 5% In Water 1000 Ml) 1,000 mls @ 40 mls/hr IV .Q24H [facility] Morphine Sulfate (Morphine) 1 mg IVP Q6 PRN PRN Reason: Pain, moderate (4-7) Last Admin: 12/21/17 09:49 Dose: 1 mg Ondansetron HCl (Zofran Inj) 4 mg IVP Q6H PRN PRN Reason: Nausea/Vomiting - Labs Labs: 12/21/17 06:00 12/21/17 06:00 - Constitutional Appears: No Acute Distress, Chronically Ill - Head Exam Head Exam: ATRAUMATIC, NORMOCEPHALIC - Eye Exam Eye Exam: EOMI, PERRL Pupil Exam: NORMAL ACCOMODATION, PERRL - ENT Exam ENT Exam: Mucous Membranes Moist, Normal External Ear Exam, TM's Normal Bilaterally - Neck Exam Neck Exam: Full ROM, Normal Inspection - Respiratory Exam Respiratory Exam: Clear to Ausculation Bilateral, NORMAL BREATHING PATTERN. absent: Rales, Rhonchi, Wheezes - Cardiovascular Exam Cardiovascular Exam: REGULAR RHYTHM, RRR, +S1, +S2 - GI/Abdominal Exam GI & Abdominal Exam: Soft, Normal Bowel Sounds. absent: Distended, Tenderness - Extremities Exam Extremities Exam: Full ROM, Normal Inspection - Neurological Exam Neurological Exam: Alert, Awake Additional comments: fatigued, AAO x 2-3 - Psychiatric Exam Psychiatric exam: Normal Affect, Normal Mood - Skin Skin Exam: Dry, Intact Assessment and Plan - Assessment and Plan (Free Text) Assessment: 47 yo AA female with colon cancer with metastatic disease to the liver. On Vancomycin and Zosyn for antibiotic coverage. 3 days of worsening abdominal pain. She is currently a full code status. The patient has a terminal cancer. Mild leukocytosis. The patient has an altered mental status. Procalcitonin level is 11.45. Procalcitonin elevation may be secondary to her metastatic colon cancer. So in this case, an elevated procalcitonin may not mean an infectious process. Procalcitonin cannot be used to prove or disprove presence of an infection especially in this case. Regardless, the patient's overall prognosis is very poor at this time. Currently she is responsive to name. Heavily fatigued. Enterococcus in urine cultures. Continue antibiotics of Unasyn IV. Looking for 10 days of treatment. Supportive care. Dismal long and short term prognosis. Patient's children have agreed to DNI/DNR. The patient mentation has improved. Liver function continues to downtrend. Part of the elevated liver function is likely secondary to the liver metastatic disease. Thank you for allowing me to participate in the care of the patient, we will follow with you.
--- NOTE | 2017-12-21 14:12 | PN ---
DATE: 12/21/2017 SUBJECTIVE: This 47-year-old female was examined at her bedside in the presence of her nurse, Joann Mcgill. Her 2 brothers were present. The patient was recently medicated with morphine and remains lethargic; however, she did require a Moore catheter placement because of urinary retention. There have been no reports of fever, chills, chest pain or shortness of breath and the patient was seen by Speech Therapy and started on a diet with thickened liquids and aspiration precautions. PHYSICAL EXAMINATION: VITAL SIGNS: At present, on physical exam, she remains in a normal sinus rhythm with temperature 98.7, respirations 20, pulse 109 and blood pressure 135/82 with pulse ox 97% on room air. HEENT: Head normocephalic, atraumatic. Eyes: Positive icterus. Ears: Clear. Throat: Noninjected. NECK: Supple. HEART: Regular S1, S2. LUNGS: No wheezing. ABDOMEN: Obese, nontender. No palpable organomegaly. EXTREMITIES: 1+ edema. SKIN: Without rash. NEUROLOGICAL: Metabolic encephalopathy. VASCULAR: Legs warm to touch. LABORATORY DATA: White count 14,200, hemoglobin 10.8, hematocrit 33.9, platelets 187,000. Sodium 144, K 3.6, chloride 112, bicarb 17, BUN 21, creatinine 0.9, random blood sugar 95, bilirubin 8.6, AST 156, ALT 64 and alk phos 220, ammonia level 18, albumin level 2.5. Microbiology report: Repeat urine culture from 12/17/2017, no growth. Urine culture from 12/15/2017: Enterococcus faecalis sensitive to ampicillin. IMPRESSION: A 47-year-old female with stage IV metastatic colon cancer to her liver with comorbidities of obesity, metabolic encephalopathy, now corrected hypernatremia, corrected hypokalemia, Enterococcus urinary tract infection, urine retention, peptic ulcer disease with gastroesophageal reflux disease and anemia of chronic disease, marked deconditioning and peripheral edema secondary to the hypoalbuminemia. PLAN: The plan as discussed with the patient, family at bedside and nurse, Joann Mcgill will be to continue out of bed to chair with assist when able and fall precautions and aspiration precautions and Moore catheter at present. She will continue with a dysphagia diet and thickened liquids as able and Unasyn 1.5 g IV q. 8 hours, Pepcid 20 mg IV q. 12, morphine 1 mg IV q. 6 hours p.r.n. severe pain and D5W will now be decreased to 40 mL/hour. The patient is ordered to have physical therapy when able. Basic metabolic panel has been ordered for the a.m. She remains DNR/DNI and her overall prognosis remains extremely poor. Greater than 35 minutes was spent in the care and management, review of labs, exam, orders and discussion with family at bedside. All questions were answered. Karol Banks MD MT[facility]
--- NOTE | 2017-12-21 17:35 | CP.PCM.PN ---
<Harry Sim - Last Filed: 12/21/17 17:31> Subjective - Date & Time of Evaluation Date of Evaluation: 12/21/17 Time of Evaluation: 11:00 - Subjective Subjective: GI Progress Note Dr Jimenez Pt was seen and examined at bedside. Pt experienced back pain earlier in the day that was improved with medication. As per nursing staff and pt, no bm for the past couple of days. Moore was placed this morning. Family was available at bedside. Pt denied fever, chills, sob, chest pains, nausea, or vomiting. Objective - Vital Signs/Intake and Output Vital Signs (last 24 hours): Temp Pulse Resp BP Pulse Ox 98.7 F 109 H 20 135/82 97 12/21/17 06:00 12/21/17 06:00 12/21/17 06:00 12/21/17 01:00 12/21/17 06:00 Intake and Output: 12/21/17 12/21/17 06:59 18:59 Intake Total 550 0 Output Total 300 175 Balance 250 -175 - Medications Medications: Current Medications Famotidine (Pepcid 20mg/50ml Premix) 20 mg in 50 mls @ 100 mls/hr IVPB Q12 [facility] Last Admin: 12/21/17 09:42 Dose: 100 mls/hr Ampicillin Sodium/Sulbactam Sodium (Unasyn) 1 gm in 100 mls @ 100 mls/hr IVPB Q8 [facility] PRN Reason: Protocol Last Admin: 12/21/17 15:01 Dose: 100 mls/hr Dextrose (Dextrose 5% In Water 1000 Ml) 1,000 mls @ 40 mls/hr IV .Q24H [facility] Last Admin: 12/21/17 15:00 Dose: 40 mls/hr Morphine Sulfate (Morphine) 1 mg IVP Q6 PRN PRN Reason: Pain, moderate (4-7) Last Admin: 12/21/17 15:58 Dose: 1 mg Ondansetron HCl (Zofran Inj) 4 mg IVP Q6H PRN PRN Reason: Nausea/Vomiting - Labs Labs: 12/21/17 06:00 12/21/17 06:00 - Constitutional Appears: Chronically Ill - Head Exam Head Exam: ATRAUMATIC, NORMAL INSPECTION, NORMOCEPHALIC - Eye Exam Eye Exam: EOMI, Normal appearance, PERRL - ENT Exam ENT Exam: Mucous Membranes Dry - Respiratory Exam Respiratory Exam: Clear to Ausculation Bilateral, NORMAL BREATHING PATTERN - Cardiovascular Exam Cardiovascular Exam: REGULAR RHYTHM, +S1, +S2. absent: Murmur - GI/Abdominal Exam GI & Abdominal Exam: Soft, Tenderness (diffuse), Normal Bowel Sounds - Neurological Exam Neurological Exam: Alert, Awake, CN II-XII Intact, Oriented x3 - Psychiatric Exam Psychiatric exam: Flat Affect - Skin Skin Exam: Dry, Intact, Normal Color, Warm Assessment and Plan - Assessment and Plan (Free Text) Assessment: Colon cancer with metastasis to liver Abdominal Pain Altered Mental Status 2/2 encephalopathy , ammonia , or narcotic induced Sepsis/leukocytosis Elevated LFT, metestatic liver disease UTI H/O diverticulosis/diverticulitits, s/p colectomy PLAN: passed swallow eval, dysphagia diet and supplements continue IVF on Pepcid BID on IV antibiotics, unasyn, continue to trend LFTs LFTs downtrending Poor Prognosis, DNR/DNI Seen and discussed w/ Dr. Jimenez. <Jessica Jimenez V - Last Filed: 12/21/17 22:04> Objective - Vital Signs/Intake and Output Vital Signs (last 24 hours): Temp Pulse Resp BP Pulse Ox 97.6 F 100 H 20 132/79 99 12/21/17 16:00 12/21/17 16:00 12/21/17 16:00 12/21/17 16:00 12/21/17 16:00 Intake and Output: 12/21/17 12/22/17 18:59 06:59 Intake Total 0 Output Total 175 Balance -175 - Medications Medications: Current Medications Famotidine (Pepcid 20mg/50ml Premix) 20 mg in 50 mls @ 100 mls/hr IVPB Q12 [facility] Last Admin: 12/21/17 09:42 Dose: 100 mls/hr Ampicillin Sodium/Sulbactam Sodium (Unasyn) 1 gm in 100 mls @ 100 mls/hr IVPB Q8 [facility] PRN Reason: Protocol Last Admin: 12/21/17 15:01 Dose: 100 mls/hr Dextrose (Dextrose 5% In Water 1000 Ml) 1,000 mls @ 40 mls/hr IV .Q24H [facility] Last Admin: 12/21/17 15:00 Dose: 40 mls/hr Morphine Sulfate (Morphine) 1 mg IVP Q6 PRN PRN Reason: Pain, moderate (4-7) Last Admin: 12/21/17 15:58 Dose: 1 mg Ondansetron HCl (Zofran Inj) 4 mg IVP Q6H PRN PRN Reason: Nausea/Vomiting - Labs Labs: 12/21/17 06:00 12/21/17 06:00 Attending/Attestation - Attestation I have personally seen and examined this patient.: Yes I have fully participated in the care of the patient.: Yes I have reviewed all pertinent clinical information, including history, physical exam and plan: Yes Notes (Text): This is an addendum to GI progress report dictated by the Clinical Therapist.The patient was seen and examined earlier. Medical records, lab studies, imagings were reviewed. Last 24 hours events reviewed. Agreed with the above treatment plan as outlined in Clinical Therapist 's notes the with the addition of the following Patient's by mouth intake remains poor Deeply jaundiced on examination abdomen soft , diffuse mild tenderness present Still significant elevation of total bilirubin Patient is on Unasyn Sepsis enterococcus in the urine Follow-up as LFTs will give an additional dose of lactulose oral prognosis remains poor Patient is DNR/DNI continue supportive care 12/21/17 22:01
[2017-12-22] MEDS: Morphine 2 mg/ml ISec IVP PRN ×4 (04:57→17:58)
[2017-12-22] MEDS: AMPicillin/Sulbactam 1.5gm 1 GM/100 ML BAG IVPB SCH ×3 (05:27→22:24)
[2017-12-22 08:01] LABS: BLOOD UREA NITROGEN 21 mg/dL (7-21); CALCIUM 9.3 mg/dL (8.4-10.5); GFR AFRICAN-AMERICAN > 60; GFR NON-AFRICAN AMERICAN 59
[2017-12-22] MEDS: Famotidine 20mg/50ml 20 MG/50 ML BAG IVPB SCH ×2 (09:56→22:24)
--- NOTE | 2017-12-22 14:56 | PN ---
DATE: 12/22/2017 SUBJECTIVE: This 47-year-old female was examined at her bedside in the presence of her nurse, Chani Pena, registered nurse. The patient remains weak and deconditioned. However, today she is much more mentally alert. She is tolerating ice chips with thickened liquids and is desirous to have her diet advanced. The patient will be attempted to get out of bed to chair and I have asked nursing staff to call Physical Therapy to attempt to stand the patient and begin physical therapy for reconditioning and gait training. Of note, she denies any fever, chills, chest pain or shortness of breath, but remains markedly deconditioned and is tolerating IV antibiotics for Enterococcus faecalis urinary tract infection. PHYSICAL EXAMINATION: VITAL SIGNS: Temperature is 98.4, respirations 22, pulse 108 and blood pressure 135/89 with a pulse ox of 97%. HEENT: Head Normocephalic, atraumatic. Eyes: Positive icterus. Ears: Clear. Throat: Noninjected. NECK: Supple. HEART: Regular S1, S2. LUNGS: Clear. ABDOMEN: Obese, nontender. No rebound. No guarding. EXTREMITIES: Decreasing edema. SKIN: Without rash. NEUROLOGICAL: Moves all four extremities. PSYCHOLOGICAL: Chronic anxiety. VASCULAR: Legs warm to touch. LABORATORY DATA: White count 14,200, hemoglobin 10.8, hematocrit 33.9, platelets 187,000. Sodium 142, K 3.7, chloride 111, bicarb 18, BUN 21, creatinine 1.0, random blood sugar 71, bilirubin 8.6, AST 156, ALT 64 and alk phos 220. Microbiology: Urine culture repeat from 12/17/2017, no growth, but previous culture from 12/15/2017, Enterococcus faecalis sensitive to ampicillin. IMPRESSION: A 47-year-old female with metastatic colon cancer to liver, comorbidities of urinary tract infection, electrolyte imbalance, now corrected including hypokalemia and hyponatremia, now resolved with anemia of chronic disease, peptic ulcer disease with gastroesophageal reflux disease, marked deconditioning and weakness. PLAN: The plan at present is to continue D5W at 40 mL/hour, Pepcid 20 mg IV q. 12, Unasyn 1.5 g IV q. 8 hours and Zofran 4 mg IV q. 6 hours p.r.n. nausea, vomiting with morphine 1 mg IV q. 6 hours p.r.n. pain. She continues on dysphagia modified diet, which includes a pureed consistency and nectar-thick liquids while maintaining aspiration precautions during feeding episode. She remains on fall precautions. I have requested out of bed to chair with assistance, bedside physical therapy and the patient remains DNR/DNI. Overall prognosis remains extremely poor. All of the above was discussed in detail with the patient and nursing at bedside. All questions were answered. Karol Banks MD MT[facility]
--- NOTE | 2017-12-22 17:46 | CP.PCM.PN ---
Subjective - Date & Time of Evaluation Date of Evaluation: 12/22/17 Time of Evaluation: 16:00 - Subjective Subjective: Infectious Disease Follow Up: December 22, 2017 47 year old female with past medical history of colon cancer with metastasis to the liver, diverticulitis, obesity, and chronic gastritis presents to the hospital for 3 day history of worsening abdominal pain. Patient was very lethargic during exam and unable to answer all questions. Much of history provided is from prior medical records. Patient has abdominal pain at baseline, but it is now much worse in the RLQ. Patient very lethargic on exam. Responds to painful stimuli. ROS unobtainable due to altered mental status. Many family member at bedside. Family appears to be coming to term with the severity of the patient's illnesses. The children have agreed to DNR and DNI. Enterococcus grew in urine cultures sensitive to Ampicillin. Patient is currently on Unasyn. Some fatigue but patient is overall more responsive and can hold short conversations. Lack of bowel movements the last few days. Objective - Vital Signs/Intake and Output Vital Signs (last 24 hours): Temp Pulse Resp BP Pulse Ox 98.4 F 108 H 22 135/89 97 12/22/17 10:00 12/22/17 10:00 12/22/17 10:00 12/22/17 10:00 12/22/17 10:00 Intake and Output: 12/22/17 12/22/17 06:59 18:59 Intake Total 730 Output Total 500 Balance 230 - Medications Medications: Current Medications Famotidine (Pepcid 20mg/50ml Premix) 20 mg in 50 mls @ 100 mls/hr IVPB Q12 [facility] Last Admin: 12/22/17 09:56 Dose: 100 mls/hr Ampicillin Sodium/Sulbactam Sodium (Unasyn) 1 gm in 100 mls @ 100 mls/hr IVPB Q8 [facility] PRN Reason: Protocol Last Admin: 12/22/17 13:15 Dose: 100 mls/hr Dextrose (Dextrose 5% In Water 1000 Ml) 1,000 mls @ 40 mls/hr IV .Q24H [facility] Last Admin: 12/22/17 13:16 Dose: 40 mls/hr Morphine Sulfate (Morphine) 1 mg IVP Q6 PRN PRN Reason: Pain, moderate (4-7) Last Admin: 12/22/17 12:14 Dose: 1 mg Ondansetron HCl (Zofran Inj) 4 mg IVP Q6H PRN PRN Reason: Nausea/Vomiting - Labs Labs: 12/21/17 06:00 12/22/17 07:15 - Constitutional Appears: No Acute Distress, Chronically Ill - Head Exam Head Exam: ATRAUMATIC, NORMOCEPHALIC - Eye Exam Eye Exam: EOMI, PERRL Pupil Exam: NORMAL ACCOMODATION, PERRL - ENT Exam ENT Exam: Mucous Membranes Moist, Normal External Ear Exam, TM's Normal Bilaterally - Neck Exam Neck Exam: Full ROM, Normal Inspection - Respiratory Exam Respiratory Exam: Clear to Ausculation Bilateral, NORMAL BREATHING PATTERN. absent: Rales, Rhonchi, Wheezes - Cardiovascular Exam Cardiovascular Exam: REGULAR RHYTHM, RRR, +S1, +S2 - GI/Abdominal Exam GI & Abdominal Exam: Soft, Normal Bowel Sounds. absent: Distended, Tenderness - Extremities Exam Extremities Exam: Full ROM, Normal Inspection - Neurological Exam Neurological Exam: Alert, Awake Additional comments: fatigued, AAO x 2-3. - Psychiatric Exam Psychiatric exam: Normal Affect, Normal Mood - Skin Skin Exam: Dry, Intact Assessment and Plan - Assessment and Plan (Free Text) Assessment: 47 yo AA female with colon cancer with metastatic disease to the liver. On Vancomycin and Zosyn for antibiotic coverage. 3 days of worsening abdominal pain. She is currently a full code status. The patient has a terminal cancer. Mild leukocytosis. The patient has an altered mental status. Procalcitonin level is 11.45. Procalcitonin elevation may be secondary to her metastatic colon cancer. So in this case, an elevated procalcitonin may not mean an infectious process. Procalcitonin cannot be used to prove or disprove presence of an infection especially in this case. Regardless, the patient's overall prognosis is very poor at this time. Currently she is responsive to name. Heavily fatigued. Enterococcus in urine cultures. Continue antibiotics of Unasyn IV. Looking for 10 days of treatment. Supportive care. Dismal long and short term prognosis. Patient's children have agreed to DNI/DNR. The patient mentation has improved. Liver function continues to downtrend. Part of the elevated liver function is likely secondary to the liver metastatic disease. Mild Leukocytosis of 14.2 still present. On the whole, the patient is improved compared to when I first saw the patient on this hospitalization. Thank you for allowing me to participate in the care of the patient, we will follow with you.
--- NOTE | 2017-12-22 17:57 | CP.PCM.PN ---
Subjective - Date & Time of Evaluation Date of Evaluation: 12/22/17 Time of Evaluation: 11:05 - Subjective Subjective: Seen and examined at the bedside earlier today, chart reviewed. Patient appears lethargic but easily arousable, reports feeling thirsty requesting ice water patient is on thickened liquids. Nephew at bedside. No reports of acute overnight events. Objective - Vital Signs/Intake and Output Vital Signs (last 24 hours): Temp Pulse Resp BP Pulse Ox 98.4 F 108 H 22 135/89 97 12/22/17 10:00 12/22/17 10:00 12/22/17 10:00 12/22/17 10:00 12/22/17 10:00 Intake and Output: 12/22/17 12/22/17 06:59 18:59 Intake Total 730 Output Total 500 Balance 230 - Medications Medications: Current Medications Famotidine (Pepcid 20mg/50ml Premix) 20 mg in 50 mls @ 100 mls/hr IVPB Q12 [facility] Last Admin: 12/22/17 09:56 Dose: 100 mls/hr Ampicillin Sodium/Sulbactam Sodium (Unasyn) 1 gm in 100 mls @ 100 mls/hr IVPB Q8 [facility] PRN Reason: Protocol Last Admin: 12/22/17 13:15 Dose: 100 mls/hr Dextrose (Dextrose 5% In Water 1000 Ml) 1,000 mls @ 40 mls/hr IV .Q24H [facility] Last Admin: 12/22/17 13:16 Dose: 40 mls/hr Morphine Sulfate (Morphine) 1 mg IVP Q6 PRN PRN Reason: Pain, moderate (4-7) Last Admin: 12/22/17 12:14 Dose: 1 mg Ondansetron HCl (Zofran Inj) 4 mg IVP Q6H PRN PRN Reason: Nausea/Vomiting - Labs Labs: 12/21/17 06:00 12/22/17 07:15 - Constitutional Appears: No Acute Distress - Head Exam Head Exam: NORMOCEPHALIC - Eye Exam Eye Exam: Normal appearance. absent: Scleral icterus - ENT Exam ENT Exam: Mucous Membranes Moist - Neck Exam Neck Exam: Normal Inspection - Respiratory Exam Respiratory Exam: NORMAL BREATHING PATTERN. absent: Respiratory Distress - Cardiovascular Exam Cardiovascular Exam: +S1, +S2 - GI/Abdominal Exam GI & Abdominal Exam: Soft, Normal Bowel Sounds. absent: Guarding, Tenderness, Rebound - Extremities Exam Extremities Exam: absent: Calf Tenderness - Neurological Exam Neurological Exam: Awake, Oriented x3 - Skin Skin Exam: Dry, Warm Assessment and Plan - Assessment and Plan (Free Text) Assessment: ASSESSMENT: Colon cancer with metastasis to liver Abdominal Pain Altered Mental Status 2/2 encephalopathy , ammonia , or narcotic induced Sepsis/leukocytosis Elevated LFT, metestatic liver disease UTI H/O diverticulosis/diverticulitits, s/p colectomy PLAN: dysphagia diet, thick liquids and supplements continue IVF on Pepcid BID on Morphine on IV antibiotics, unasyn, continue to trend LFTs LFTs downtrending spoke to nephew at bedside. Poor Prognosis, DNR/DNI Seen and discussed w/ Dr. Jimenez.
[2017-12-22] MEDS ORDERED: Morphine 2 mg/ml ISec IVP PRN ×2 (22:07→22:12)
[2017-12-23] MEDS: Nystatin 100,000 Units/gm Topical Pow(15 gm) TOP SCH ×2 (09:27→17:30)
[2017-12-23] MEDS: Famotidine 20mg/50ml 20 MG/50 ML BAG IVPB SCH ×2 (09:27→21:13)
[2017-12-23] MEDS: Morphine 2 mg/ml ISec IVP PRN ×3 (09:55→21:53)
--- NOTE | 2017-12-23 12:04 | CP.PCM.PN ---
Subjective - Date & Time of Evaluation Date of Evaluation: 12/23/17 Time of Evaluation: 08:30 - Subjective Subjective: GI Progress Note Dr. Jimenez Pt was seen and examined at bedside with family present. Pt is somnolent and lethargic unchanged from yesterday, minimally conversational. As per family and nursing staff, pt has poor appetite however tolerating intake. No bm. Pt has back pain as per nursing staff that is managed with analgesics. Objective - Vital Signs/Intake and Output Vital Signs (last 24 hours): Temp Pulse Resp BP Pulse Ox 97.3 F L 103 H 20 133/90 100 12/23/17 08:38 12/23/17 08:38 12/23/17 08:38 12/23/17 08:38 12/23/17 08:38 Intake and Output: 12/23/17 12/23/17 06:59 18:59 Intake Total 0 Output Total 700 Balance -700 - Medications Medications: Current Medications Famotidine (Pepcid 20mg/50ml Premix) 20 mg in 50 mls @ 100 mls/hr IVPB Q12 [facility] Last Admin: 12/23/17 09:27 Dose: 100 mls/hr Dextrose (Dextrose 5% In Water 1000 Ml) 1,000 mls @ 40 mls/hr IV .Q24H [facility] Last Admin: 12/22/17 13:16 Dose: 40 mls/hr Morphine Sulfate (Morphine) 1 mg IVP Q4H PRN PRN Reason: Pain, severe (8-10) Last Admin: 12/23/17 09:55 Dose: 1 mg Nystatin (Nystop Topical Powder) 0 gm TOP BID [facility] Last Admin: 12/23/17 09:27 Dose: 1 applic Ondansetron HCl (Zofran Inj) 4 mg IVP Q6H PRN PRN Reason: Nausea/Vomiting - Labs Labs: 12/21/17 06:00 12/22/17 07:15 - Constitutional Appears: No Acute Distress, Chronically Ill - Head Exam Head Exam: ATRAUMATIC, NORMAL INSPECTION, NORMOCEPHALIC - Eye Exam Eye Exam: EOMI, Normal appearance, PERRL - ENT Exam ENT Exam: Mucous Membranes Dry - Respiratory Exam Respiratory Exam: Clear to Ausculation Bilateral, NORMAL BREATHING PATTERN - Cardiovascular Exam Cardiovascular Exam: REGULAR RHYTHM, +S1, +S2. absent: Murmur - GI/Abdominal Exam GI & Abdominal Exam: Soft, Tenderness (diffuse), Normal Bowel Sounds - Back Exam Back Exam: tenderness - Psychiatric Exam Psychiatric exam: Normal Affect, Normal Mood - Skin Skin Exam: Dry, Intact, Normal Color, Warm Assessment and Plan - Assessment and Plan (Free Text) Assessment: Colon cancer with metastasis to liver Abdominal Pain Altered Mental Status 2/2 encephalopathy , ammonia , or narcotic induced Sepsis/leukocytosis Elevated LFT, metestatic liver disease UTI H/O diverticulosis/diverticulitits, s/p colectomy PLAN: dysphagia diet, thick liquids and supplements continue IVF on Pepcid BID on Morphine on IV antibiotics, unasyn, continue to trend LFTs LFTs downtrending spoke to nephew at bedside. Poor Prognosis, DNR/DNI Seen and discussed w/ Dr. Jimenez.
--- NOTE | 2017-12-23 15:49 | PN ---
DATE: 12/23/2017 SUBJECTIVE: This 47-year-old female was examined at her bedside and this case was reviewed in detail with nurse, Kirsten Belle, registered nurse. The patient remains weak and deconditioned, but is tolerating her advanced diet, which is pureed with thickened liquids while remaining on aspiration precautions. The patient continues to complain of metastatic colon cancer pain and is being medicated with adjusted morphine. The patient remains weak and deconditioned and needs a Moore catheter at the present time because of urinary tract infection and urinary retention. PHYSICAL EXAMINATION: VITAL SIGNS: On physical exam, she remains in a normal sinus rhythm on the concrete stone finisher and her temperature is 97.3, respirations 20, pulse 103 and blood pressure 133/90 with a pulse ox of 100%. Urine output was 900 mL recorded yesterday. HEENT: Head: Normocephalic, atraumatic. Eyes: Positive icterus. Ears: Clear. Throat: Noninjected. NECK: Supple. HEART: Regular S1, S2. LUNGS: Clear. ABDOMEN: Obese. No rebound. No guarding. No tenderness. EXTREMITIES: Decreasing edema. SKIN: With a rash underneath her breast. VASCULAR: Legs warm to touch. PSYCHOLOGICAL: Mild lethargy after morphine administration. NEURO: Able to move all 4 extremities to tactile stimulus. LABORATORY DATA: White count 14,200, hemoglobin 10.8, hematocrit 33.9, platelets 187,000. Sodium 142, K 3.7, chloride 111, bicarb 18, BUN 21, creatinine 1.0, random blood sugar 71, bilirubin 8.6, AST 156, ALT 64, alk phos 220. Microbiology report on 12/15/2017 showed urine culture with Enterococcus faecalis sensitive to vancomycin. Repeat urine culture on 12/17/2017 no growth. IMPRESSION: A 47-year-old female with metastatic colon cancer to liver, metabolic encephalopathy, resolved hypokalemia, resolved hypernatremia with comorbidities of elevated liver function testing, metabolic encephalopathy, skin tear to skin, peptic ulcer disease with gastroesophageal reflux disease, anemia of chronic disease and marked deconditioning and weakness. PLAN: Plan as discussed with the patient, family and nursing will be to continue physical and occupational therapy as able for reconditioning and gait training while continuing with her dysphagia modified diet and maintaining out of bed to chair with assistance as able and fall precautions. She is also receiving skin care, Zofran 4 mg IV q. 6 hours p.r.n. nausea and vomiting, Silvadene to her skin tear twice daily with dry sterile dressing, Pepcid 20 mg IV q. 12, morphine 1 mg IV q. 4 hours p.r.n. severe pain and D5W at 40 mL/hour. She remains a DNR/DNI. Antibiotic therapy has been completed as per Infectious Disease computer consultant, Dr. Curiel and overall prognosis remains poor. All of the above was discussed in detail with the patient, family and nursing. Greater than 35 minutes was spent in the care, management and review of labs, x-rays orders for the patient today. Karol Banks MD MTDD
[2017-12-23] MEDS: AMPicillin/Sulbactam 1.5gm 1 GM/100 ML BAG IVPB SCH (17:29)
[2017-12-23] MEDS: Silver Sulfadiazine 1% Cream (25 gm) TP SCH (17:30)
--- NOTE | 2017-12-23 18:34 | CP.PCM.PN ---
Subjective - Date & Time of Evaluation Date of Evaluation: 12/23/17 Time of Evaluation: 14:30 - Subjective Subjective: Infectious Disease Follow Up: December 23, 2017 47 year old female with past medical history of colon cancer with metastasis to the liver, diverticulitis, obesity, and chronic gastritis presents to the hospital for 3 day history of worsening abdominal pain. Patient was very lethargic during exam and unable to answer all questions. Much of history provided is from prior medical records. Patient has abdominal pain at baseline, but it is now much worse in the RLQ. Patient very lethargic on exam. Responds to painful stimuli. ROS unobtainable due to altered mental status. Many family member at bedside. Family appears to be coming to term with the severity of the patient's illnesses. The children have agreed to DNR and DNI. Enterococcus grew in urine cultures sensitive to Ampicillin. Patient is currently on Unasyn. Remains fatigued but patient is overall more responsive and can hold short conversations. Lack of bowel movements the last few days. Objective - Vital Signs/Intake and Output Vital Signs (last 24 hours): Temp Pulse Resp BP Pulse Ox 97.6 F 112 H 18 130/79 98 12/23/17 16:00 12/23/17 16:00 12/23/17 16:00 12/23/17 16:00 12/23/17 16:00 Intake and Output: 12/23/17 12/23/17 06:59 18:59 Intake Total 0 200 Output Total 700 50 Balance -700 150 - Medications Medications: Current Medications Famotidine (Pepcid 20mg/50ml Premix) 20 mg in 50 mls @ 100 mls/hr IVPB Q12 [facility] Last Admin: 12/23/17 09:27 Dose: 100 mls/hr Dextrose (Dextrose 5% In Water 1000 Ml) 1,000 mls @ 40 mls/hr IV .Q24H [facility] Last Admin: 12/22/17 13:16 Dose: 40 mls/hr Ampicillin Sodium/Sulbactam Sodium (Unasyn) 1 gm in 100 mls @ 100 mls/hr IVPB TID [facility] PRN Reason: Protocol Last Admin: 12/23/17 17:29 Dose: 100 mls/hr Morphine Sulfate (Morphine) 1 mg IVP Q4H PRN PRN Reason: Pain, severe (8-10) Last Admin: 12/23/17 14:53 Dose: 1 mg Nystatin (Nystop Topical Powder) 0 gm TOP BID [facility] Last Admin: 12/23/17 17:30 Dose: 1 applic Ondansetron HCl (Zofran Inj) 4 mg IVP Q6H PRN PRN Reason: Nausea/Vomiting Silver Sulfadiazine (Silvadene 1% 25 Gm) 0 gm TP BID [facility] Last Admin: 12/23/17 17:30 Dose: 25 gm - Labs Labs: 12/21/17 06:00 12/22/17 07:15 - Constitutional Appears: No Acute Distress, Chronically Ill - Head Exam Head Exam: ATRAUMATIC, NORMOCEPHALIC - Eye Exam Eye Exam: EOMI, PERRL Pupil Exam: NORMAL ACCOMODATION, PERRL - ENT Exam ENT Exam: Mucous Membranes Moist, Normal External Ear Exam, TM's Normal Bilaterally - Neck Exam Neck Exam: Full ROM, Normal Inspection - Respiratory Exam Respiratory Exam: Clear to Ausculation Bilateral, NORMAL BREATHING PATTERN. absent: Rales, Rhonchi, Wheezes - Cardiovascular Exam Cardiovascular Exam: REGULAR RHYTHM, RRR, +S1, +S2 - GI/Abdominal Exam GI & Abdominal Exam: Soft, Normal Bowel Sounds. absent: Distended, Tenderness - Extremities Exam Extremities Exam: Full ROM, Normal Inspection - Neurological Exam Neurological Exam: Alert, Awake Additional comments: fatigued, AAO x 2-3. - Psychiatric Exam Psychiatric exam: Normal Affect, Normal Mood - Skin Skin Exam: Dry, Intact Assessment and Plan - Assessment and Plan (Free Text) Assessment: 47 yo AA female with colon cancer with metastatic disease to the liver. On Vancomycin and Zosyn for antibiotic coverage. 3 days of worsening abdominal pain. She is currently a full code status. The patient has a terminal cancer. Mild leukocytosis. The patient has an altered mental status. Procalcitonin level is 11.45. Procalcitonin elevation may be secondary to her metastatic colon cancer. So in this case, an elevated procalcitonin may not mean an infectious process. Procalcitonin cannot be used to prove or disprove presence of an infection especially in this case. Regardless, the patient's overall prognosis is very poor at this time. Currently she is responsive to name. Heavily fatigued. Enterococcus in urine cultures. Continue antibiotics of Unasyn IV. Looking for 10 days of treatment. Supportive care. Dismal long and short term prognosis. Patient's children have agreed to DNI/DNR. The patient mentation has improved. Liver function continues to downtrend. Part of the elevated liver function is likely secondary to the liver metastatic disease. Mild Leukocytosis of 14.2 still present. On the whole, the patient is improved compared to when I first saw the patient on this hospitalization. LFTs have been improving. Thank you for allowing me to participate in the care of the patient, we will follow with you.
[2017-12-24] MEDS: Morphine 2 mg/ml ISec IVP PRN ×4 (01:44→17:01)
[2017-12-24] MEDS: Famotidine 20mg/50ml 20 MG/50 ML BAG IVPB SCH ×2 (10:03→22:25)
[2017-12-24] MEDS: Silver Sulfadiazine 1% Cream (25 gm) TP SCH ×2 (10:04→17:02)
[2017-12-24] MEDS: Nystatin 100,000 Units/gm Topical Pow(15 gm) TOP SCH ×2 (10:04→17:02)
[2017-12-24] MEDS: AMPicillin/Sulbactam 1.5gm 1 GM/100 ML BAG IVPB SCH ×3 (10:05→17:00)
[2017-12-24 14:32] LABS: BASO # 0.03 K/mm3 (0.0-2.0); BASO % 0.2 % (0.0-3.0); EOS % 0.1 % (1.5-5.0); GRAN # 9.36 (1.4-6.5); GRAN % 70.6 % (50.0-68.0); HEMOGLOBIN 10.6 g/dL (12.0-16.0); LYMPH # 2.3 (1.2-3.4); LYMPH % 17.4 % (22.0-35.0); MEAN CELL VOLUME 97.3 fl (80.0-105.0); MEAN CORPUSCULAR HEMOGLOBIN 32.1 pg (25.0-35.0); MEAN PLATELET VOLUME 10.2 fl (7.0-11.0); MONO # 1.6 (0.1-0.6); MONO % 11.7 % (1.0-6.0); RBC 3.3 10^6/uL (3.5-6.1); RED CELL DISTRIBUTION WIDTH 22.1 % (11.5-14.5); WHITE BLOOD COUNT 13.3 10^3/ul (4.5-11.0)
[2017-12-24 14:59] LABS: ALB/GLOB RATIO 0.6 (1.1-1.8); ALBUMIN 2.4 g/dL (3.0-4.8); CALCIUM 9.4 mg/dL (8.4-10.5)
--- NOTE | 2017-12-24 17:03 | RAD ---
HISTORY: DOBHOLV TUBE PLACEMENT COMPARISON: Comparison is made to the previous study dated 12/15/2017 FINDINGS: LUNGS: No significant interval change in the lungs noted since the previous exam. PLEURA: No significant pleural effusion identified, no pneumothorax apparent. CARDIOVASCULAR: Normal. OSSEOUS STRUCTURES: No significant abnormalities. VISUALIZED UPPER ABDOMEN: There is a feeding tube/ NG tube seen extending to the stomach. OTHER FINDINGS: Right-sided Port-A-Cath is again seen in place. IMPRESSION: Appropriate position of the feeding tube seen extending to the stomach. Otherwise no interval change.
--- NOTE | 2017-12-24 18:06 | PN ---
DATE: 12/24/2017 SUBJECTIVE: This 47-year-old female was examined at her bedside in the presence of her family and her nurse, Delmi Wasserman, registered nurse. The patient was complaining of pain earlier, she was medicated with morphine with success. However, she was seen in reevaluation by Speech Therapy who now feels that the patient is too lethargic for continued p.o. intake. As a result, I have discussed this case with Dr. Jessica Jimenez from GI, who has recommended a Dobhoff tube placement for nasogastric tube feedings and will be reassessing the patient for possible lactulose treatment. At present, she remains in a normal sinus rhythm on the cardiac surgeon. She i s bedridden, and needs a Moore catheter because of urinary retention. PHYSICAL EXAMINATION: VITAL SIGNS: Temperature is 97.6, respirations 20, pulse 101, and blood pressure 127/79 with a pulse ox of 97% O2. Urinary output has been 600 mL thus far today. HEENT: Head: Normocephalic, atraumatic. Eyes: Positive icterus. Ears: Clear. Throat: Noninjected. NECK: Supple. HEART: S1, S2. LUNGS: Clear. ABDOMEN: Obese, nontender. No palpable organomegaly. No rebound. No guarding or tenderness. EXTREMITIES: 1+ edema. SKIN: Without rash. NEUROLOGIC: Lethargic. VASCULAR: Legs warm to touch. PSYCHOLOGIC: Could not be assessed. SKIN: No ulcers noted. LABORATORY DATA: White count 14,200, hemoglobin 10.8, hematocrit 33.9, and platelets 187,000. Sodium 142, K 3.7, chloride 111, bicarb is 18. BUN 21, creatinine 1. Random blood sugar 71. Bilirubin 8.6, AST 156, ALT 64, alk phos 220. Previous urine culture was growing Enterococcus faecalis sensitive to ampicillin. Most recent blood culture showed no growth. Nares showed no MRSA and repeat urine culture from 12/17, no growth. IMPRESSION: This is a 47-year-old female with stage IV metastatic colon cancer to her liver with metabolic encephalopathy, previous hypernatremia, previous hypokalemia, peptic ulcer disease with gastroesophageal reflux disease, anemia of chronic disease, Enterococcus faecalis urinary tract infection with urinary retention, and altered mental status, which renders her n.p.o. for feeding fluid and medication. PLAN: As outlined with Nursing and discussed with family and Dr. Jimenez will be to obtain an ammonia level, comprehensive metabolic panel, and CBC presently. She will have an order placed for a Dobhoff tube, so additional medication and feedings of Jevity can be started. She will receive D5W at 100 mL per hour, morphine 1 mg IV q. 4 hours p.r.n. pain, Pepcid 20 mg IV q.12, Silvadene to affected skin b.i.d., Unasyn 1.5 g IV piggyback q. 8 hours, and Zofran 4 mg IV q. 6 hours p.r.n. nausea and vomiting. She remains n.p.o. She remains at bedrest. Fall protocol is in place and she remains DNR/DNI. All of the above was discussed in detail with the patient, the patient's family at bedside, Nursing, and reviewed with Dr. Jessica Jimenez from . All questions were answered. Karol Banks MD MTDMelissa
--- NOTE | 2017-12-24 19:38 | CP.PCM.PN ---
Subjective - Date & Time of Evaluation Date of Evaluation: 12/24/17 Time of Evaluation: 17:00 - Subjective Subjective: Infectious Disease Follow Up: December 24, 2017 47 year old female with past medical history of colon cancer with metastasis to the liver, diverticulitis, obesity, and chronic gastritis presents to the hospital for 3 day history of worsening abdominal pain. Patient was very lethargic during exam and unable to answer all questions. Much of history provided is from prior medical records. Patient has abdominal pain at baseline, but it is now much worse in the RLQ. Patient very lethargic on exam. Responds to painful stimuli. ROS unobtainable due to altered mental status. Many family member at bedside. Family appears to be coming to term with the severity of the patient's illnesses. The children have agreed to DNR and DNI. Enterococcus grew in urine cultures sensitive to Ampicillin. Patient is currently on Unasyn. Remains fatigued but patient is overall more responsive and can hold short conversations. Lack of bowel movements the last few days. Patient failed swallow study and required placement of Dobhoff tube for feeding. Objective - Vital Signs/Intake and Output Vital Signs (last 24 hours): Temp Pulse Resp BP Pulse Ox 97.9 F 109 H 21 105/74 99 12/24/17 17:22 12/24/17 17:22 12/24/17 17:22 12/24/17 17:22 12/24/17 17:22 Intake and Output: 12/24/17 12/25/17 18:59 06:59 Intake Total 0 Output Total 20 Balance -20 - Medications Medications: Current Medications Famotidine (Pepcid 20mg/50ml Premix) 20 mg in 50 mls @ 100 mls/hr IVPB Q12 [facility] Last Admin: 12/24/17 10:03 Dose: 100 mls/hr Ampicillin Sodium/Sulbactam Sodium (Unasyn) 1 gm in 100 mls @ 100 mls/hr IVPB TID [facility] PRN Reason: Protocol Last Admin: 12/24/17 17:00 Dose: 100 mls/hr Dextrose (Dextrose 5% In Water 1000 Ml) 1,000 mls @ 100 mls/hr IV .Q10H [facility] Last Admin: 12/24/17 15:03 Dose: 100 mls/hr Morphine Sulfate (Morphine) 1 mg IVP Q4H PRN PRN Reason: Pain, severe (8-10) Last Admin: 12/24/17 17:01 Dose: 1 mg Nystatin (Nystop Topical Powder) 0 gm TOP BID [facility] Last Admin: 12/24/17 17:02 Dose: 1 applic Ondansetron HCl (Zofran Inj) 4 mg IVP Q6H PRN PRN Reason: Nausea/Vomiting Silver Sulfadiazine (Silvadene 1% 25 Gm) 0 gm TP BID [facility] Last Admin: 12/24/17 17:02 Dose: 25 gm - Labs Labs: 12/24/17 14:26 12/24/17 14:26 - Constitutional Appears: No Acute Distress, Chronically Ill - Head Exam Head Exam: NORMOCEPHALIC Additional comments: Dobhoff in place. - Eye Exam Eye Exam: EOMI, PERRL Pupil Exam: NORMAL ACCOMODATION, PERRL - ENT Exam ENT Exam: Mucous Membranes Moist, Normal External Ear Exam, TM's Normal Bilaterally - Neck Exam Neck Exam: Full ROM, Normal Inspection - Respiratory Exam Respiratory Exam: Clear to Ausculation Bilateral, NORMAL BREATHING PATTERN. absent: Rales, Rhonchi, Wheezes - Cardiovascular Exam Cardiovascular Exam: REGULAR RHYTHM, RRR, +S1, +S2 - GI/Abdominal Exam GI & Abdominal Exam: Soft, Normal Bowel Sounds. absent: Distended, Tenderness - Extremities Exam Extremities Exam: Full ROM, Normal Inspection - Neurological Exam Neurological Exam: Alert, Awake Additional comments: Fatigued, AAO x 2-3 - Psychiatric Exam Psychiatric exam: Normal Affect, Normal Mood - Skin Skin Exam: Dry, Intact Assessment and Plan - Assessment and Plan (Free Text) Assessment: 47 yo AA female with colon cancer with metastatic disease to the liver. On Vancomycin and Zosyn for antibiotic coverage. 3 days of worsening abdominal pain. She is currently a full code status. The patient has a terminal cancer. Mild leukocytosis. The patient has an altered mental status. Procalcitonin level is 11.45. Procalcitonin elevation may be secondary to her metastatic colon cancer. So in this case, an elevated procalcitonin may not mean an infectious process. Procalcitonin cannot be used to prove or disprove presence of an infection especially in this case. Regardless, the patient's overall prognosis is very poor at this time. Currently she is responsive to name. Heavily fatigued. Enterococcus in urine cultures. Continue antibiotics of Unasyn IV. Looking for 10 days of treatment. Supportive care. Dismal long and short term prognosis. Patient's children have agreed to DNI/DNR. The patient mentation has improved. Liver function continues to downtrend. Part of the elevated liver function is likely secondary to the liver metastatic disease. Mild Leukocytosis of 13.3 still present. LFTs have been improving on the whole but remain elevated. Patient failed swallow study and required Dobhoff tube placement today. Thank you for allowing me to participate in the care of the patient, we will follow with you.
[2017-12-25] MEDS: Morphine 2 mg/ml ISec IVP PRN ×3 (00:42→15:32)
[2017-12-25] MEDS: Silver Sulfadiazine 1% Cream (25 gm) TP SCH ×2 (09:56→17:22)
[2017-12-25] MEDS: Nystatin 100,000 Units/gm Topical Pow(15 gm) TOP SCH ×2 (09:56→17:21)
[2017-12-25] MEDS: Famotidine 20mg/50ml 20 MG/50 ML BAG IVPB SCH ×2 (09:56→21:27)
[2017-12-25] MEDS: AMPicillin/Sulbactam 1.5gm 1 GM/100 ML BAG IVPB SCH ×3 (09:57→17:22)
[2017-12-25] MEDS ORDERED: Sodium Chloride 0.9% 1,000 ML IV STA (15:02)
--- NOTE | 2017-12-25 16:48 | CP.PCM.PN ---
Subjective - Date & Time of Evaluation Date of Evaluation: 12/25/17 Time of Evaluation: 15:00 - Subjective Subjective: Infectious Disease Follow Up: December 25, 2017 47 year old female with past medical history of colon cancer with metastasis to the liver, diverticulitis, obesity, and chronic gastritis presents to the hospital for 3 day history of worsening abdominal pain. Patient was very lethargic during exam and unable to answer all questions. Much of history provided is from prior medical records. Patient has abdominal pain at baseline, but it is now much worse in the RLQ. Patient very lethargic on exam. Responds to painful stimuli. ROS unobtainable due to altered mental status. Many family member at bedside. Family appears to be coming to term with the severity of the patient's illnesses. The children have agreed to DNR and DNI. Enterococcus grew in urine cultures sensitive to Ampicillin. Patient is currently on Unasyn. Remains fatigued but patient is overall more responsive and can hold short conversations. Lack of bowel movements the last few days. Patient failed swallow study and required placement of Dobhoff tube for feeding on 12/24/2017. No additional issues. On Unasyn day 7. Objective - Vital Signs/Intake and Output Vital Signs (last 24 hours): Temp Pulse Resp BP Pulse Ox 97.7 F 102 H 20 121/78 98 12/25/17 06:00 12/25/17 06:00 12/25/17 06:00 12/25/17 06:00 12/25/17 06:00 Intake and Output: 12/25/17 12/25/17 06:59 18:59 Intake Total 1570 Output Total 50 Balance 1520 - Medications Medications: Current Medications Famotidine (Pepcid 20mg/50ml Premix) 20 mg in 50 mls @ 100 mls/hr IVPB Q12 [facility] Last Admin: 12/25/17 09:56 Dose: 100 mls/hr Ampicillin Sodium/Sulbactam Sodium (Unasyn) 1 gm in 100 mls @ 100 mls/hr IVPB TID [facility] PRN Reason: Protocol Last Admin: 12/25/17 13:24 Dose: 100 mls/hr Sodium Chloride (Sodium Chloride 0.9%) 1,000 mls @ 500 mls/hr IV .Q2H [facility] Stop: 12/25/17 17:01 Last Admin: 12/25/17 15:31 Dose: 500 mls/hr Dextrose/Sodium Chloride (Dextrose 5%/0.9% Ns 1000 Ml) 1,000 mls @ 100 mls/hr IV .Q10H [facility] Morphine Sulfate (Morphine) 1 mg IVP Q4H PRN PRN Reason: Pain, severe (8-10) Last Admin: 12/25/17 15:32 Dose: 1 mg Nystatin (Nystop Topical Powder) 0 gm TOP BID [facility] Last Admin: 12/25/17 09:56 Dose: 1 applic Ondansetron HCl (Zofran Inj) 4 mg IVP Q6H PRN PRN Reason: Nausea/Vomiting Silver Sulfadiazine (Silvadene 1% 25 Gm) 0 gm TP BID [facility] Last Admin: 12/25/17 09:56 Dose: 25 gm - Labs Labs: 12/24/17 14:26 12/24/17 14:26 - Constitutional Appears: No Acute Distress, Chronically Ill - Head Exam Head Exam: NORMOCEPHALIC Additional comments: Dobhoff in place. - Eye Exam Eye Exam: EOMI, PERRL Pupil Exam: NORMAL ACCOMODATION, PERRL - ENT Exam ENT Exam: Mucous Membranes Moist, Normal External Ear Exam, TM's Normal Bilaterally - Neck Exam Neck Exam: Full ROM, Normal Inspection - Respiratory Exam Respiratory Exam: Clear to Ausculation Bilateral, NORMAL BREATHING PATTERN. absent: Rales, Rhonchi, Wheezes - Cardiovascular Exam Cardiovascular Exam: REGULAR RHYTHM, RRR, +S1, +S2 - GI/Abdominal Exam GI & Abdominal Exam: Soft, Normal Bowel Sounds. absent: Distended, Tenderness - Extremities Exam Extremities Exam: Full ROM, Normal Inspection - Neurological Exam Neurological Exam: Alert, Awake Additional comments: Fatigued, AAO x 2-3 - Psychiatric Exam Psychiatric exam: Normal Affect, Normal Mood - Skin Skin Exam: Dry, Intact Assessment and Plan - Assessment and Plan (Free Text) Assessment: 47 yo AA female with colon cancer with metastatic disease to the liver. On Vancomycin and Zosyn for antibiotic coverage. 3 days of worsening abdominal pain. She is currently a full code status. The patient has a terminal cancer. Mild leukocytosis. The patient has an altered mental status. Procalcitonin level is 11.45. Procalcitonin elevation may be secondary to her metastatic colon cancer. So in this case, an elevated procalcitonin may not mean an infectious process. Procalcitonin cannot be used to prove or disprove presence of an infection especially in this case. Regardless, the patient's overall prognosis is very poor at this time. Currently she is responsive to name. Heavily fatigued. Enterococcus in urine cultures. Continue antibiotics of Unasyn IV. Looking for 10 days of treatment. On day 7 now (started on evening of 12/17/2017) Supportive care. Dismal long and short term prognosis. Patient's children have agreed to DNI/DNR. The patient mentation has improved. Liver function continues to downtrend. Part of the elevated liver function is likely secondary to the liver metastatic disease. Mild Leukocytosis of 13.3 still present. LFTs have been improving on the whole but remain elevated. Recheck tomorrow. Patient failed swallow study and required Dobhoff tube placement 12/24/2017. Repeat procalcitonin. Thank you for allowing me to participate in the care of the patient, we will follow with you.
[2017-12-25] MEDS: Dextrose 5%/0.9% NS 1,000 ML IV SCH (18:21)
--- NOTE | 2017-12-25 22:42 | PN ---
DATE: 12/25/2017 SUBJECTIVE: This 47-year-old female was examined at the bedside in the presence of her brothers and sisters who were present for the interview. This case was also reviewed in detail with nurse, Delmi Wasserman, registered nurse. Of note, the patient has had minimal urine output today. Patient remains lethargic, markedly debilitated and bedridden in the setting of advanced metastatic colon cancer to the liver, stage IV. The patient had a Dobhoff tube placed successfully yesterday. X-rays were reviewed and it is in adequate position. The patient is currently receiving IV fluid challenge to better assess her lack of urine output and to rule out dehydration. Patient remains DNR/DNI. PHYSICAL EXAMINATION: VITAL SIGNS: Temperature is 98.1, respirations 21, pulse 105 and blood pressure 121/78 with a pulse ox of 98%. HEENT: Head, normocephalic and atraumatic. Eyes, no icterus. Ears, clear. Throat, noninjected. NECK: Supple. HEART: Regular. S1, S2. LUNGS: No wheezing. ABDOMEN: Soft, obese. EXTREMITIES: Trace edema. VASCULAR: Legs warm to touch. PSYCHOLOGIC: Lethargic, but able to answer questioning. NEURO: Bedridden, markedly deconditioned. LABORATORY DATA: White count 13,300, hemoglobin 10.6, hematocrit 32.1, platelets 291,000. Random blood sugar 150. Sodium 139, K 4.0, chloride 109, bicarb 18, BUN 26 and creatinine 1.7. Bilirubin 8.2, AST 255, ALT 59 and alk phos 241. IMPRESSION: A 47-year-old female with metastatic colon cancer to liver with metabolic encephalopathy, decreased urinary output, now with advancing azotemia, rule out obstructive uropathy despite the fact that patient has a Moore catheter in place and no urine output in her bladder, also with markedly elevated liver function testing, obstructive biliary stasis pattern on lab testing with Enterococcus faecalis urinary tract infection and marked deconditioning in the setting of leukocytosis and anemia. PLAN: The plan as discussed with the patient, nursing and family will be to maintain DNR/DNI. She remains n.p.o. for all feeding fluids and meds given her altered mental status and metabolic encephalopathy. She has been ordered to have Jevity 1.2 formula at 30 mL per hour by Dr. Jimenez from GI while remaining on aspiration precautions. She also remains on fall precaution, skin precautions, bladder scanning q. shift as well as bed rest. I have ordered a renal ultrasound because of her lack of urine output. She was given a 1 L fluid challenge with 0.9 saline with no result and has now been ordered to receive Lasix 40 mg IV x1 dose. She continues on Unasyn 1.5 g IV t.i.d. under the direction of Dr. Clif Curiel from Infectious Disease. She is ordered to have Pepcid 20 mg IV q.12, morphine 1 mg IV q.4 hours p.r.n. severe pain and D5 of 0.9 saline at 100 mL per hour. She will be scheduled for CBC, urine sodium, comprehensive metabolic panel and ammonia level and her overall prognosis remains extremely poor. Greater than 35 minutes was spent in the care management, review of orders and discussion of this patient's progress with family members at bedside. All questions were answered. Karol Banks MD MTDD
[2017-12-26] MEDS: Morphine 2 mg/ml ISec IVP PRN ×4 (00:48→23:54)
[2017-12-26] MEDS: Dextrose 5%/0.9% NS 1,000 ML IV SCH (05:35)
[2017-12-26 07:06] LABS: ALB/GLOB RATIO 0.5 (1.1-1.8); ALBUMIN 2.4 g/dL (3.0-4.8); CALCIUM 9.4 mg/dL (8.4-10.5)
--- NOTE | 2017-12-26 07:48 | PN ---
DATE: 12/25/2017 SUBJECTIVE: This patient was seen and evaluated earlier. Patient has now Dobhoff feeding tube at 30 mL per hour, tolerating. Slightly more alert now today. PHYSICAL EXAMINATION: VITAL SIGNS: Temperature is 97.3, pulse 100, blood pressure is 118/73. HEENT: Jaundiced. NECK: Supple. HEART: S1, S2 heard. LUNGS: Bilateral air entry present. ABDOMEN: Softly distended. EXTREMITIES: Bilateral edema present. LABORATORY DATA: Hemoglobin 10.3. No recent labs today. IMPRESSION: This 47-year-old patient with advanced colon cancer with large amount of stool present. In addition to it, the patient has multiple . We will continue the nasogastric tube feeding. continue the supportive care management; poor candidate for any intervention. On lactulose. Followup of the liver function tests. Overall prognosis of the patient is poor. Because of her abdominal scar injury, she is not a candidate for a percutaneous endoscopic gastrostomy tube placement, and if it is needed, then we need to be surgically placed, on CT guidance. We discussed with Dr. Bran and had discussed with patient's family and primary physician regarding the feeding tube. Overall prognosis of the patient is poor. Thank you very much for allowing us to participate in the care of the patient. Jessica Jimenez MD
[2017-12-26] MEDS: AMPicillin/Sulbactam 1.5gm 1 GM/100 ML BAG IVPB SCH ×3 (09:33→17:10)
[2017-12-26] MEDS: Famotidine 20mg/50ml 20 MG/50 ML BAG IVPB SCH ×2 (09:33→21:21)
[2017-12-26] MEDS: Nystatin 100,000 Units/gm Topical Pow(15 gm) TOP SCH ×2 (09:33→17:12)
[2017-12-26] MEDS: Silver Sulfadiazine 1% Cream (25 gm) TP SCH ×2 (09:34→17:12)
--- NOTE | 2017-12-26 09:41 | PN ---
DATE: 12/24/2017 SUBJECTIVE: This patient was seen and evaluated earlier today. Patient was lethargic. Family was at bedside. OBJECTIVE: VITAL SIGNS: Temperature is 97.9, pulse 109, blood pressure 105/72, respirations 21, O2 saturation 99%. HEENT: Jaundiced. NECK: Supple. HEART: S1 and S2 heard. LUNGS: Bilateral air entry present. ABDOMEN: Soft, distended. EXTREMITIES: Edema present. LABORATORY DATA: WBC count is 13.3, hemoglobin 10.6, hematocrit 32.1, platelets 291. Chemistry shows total bilirubin is 8.2, AST is 255, ALT is 59. Ammonia is 32. IMPRESSION: This 47-year-old patient has advanced metastatic colorectal colon cancer, has metabolic encephalopathy, sepsis, now has worsening of the renal function, BUN 26, creatinine 1.7. RECOMMENDATIONS: Patient with a Dobhoff feeding tube and started the patient on lactulose and also feeding. We will discuss with the family regarding the long-term feeding enteral support. Patient had adhesions in the past, had open surgery. With the carcinomatosis clinically, he is not a candidate for percutaneous gastrostomy tube placement. Patient has extensive metastatic disease. Endoscopic placement of feeding tube may not be feasible for this patient; however, we will discuss with the family first. Meanwhile, we will continue the feedings with the Dobhoff tube. We will start the lactulose also. Jessica Jimenez MD
--- NOTE | 2017-12-26 09:42 | RAD ---
HISTORY: NG tube placement COMPARISON: 12/24/2017 FINDINGS: LUNGS: No active pulmonary disease. PLEURA: No significant pleural effusion identified, no pneumothorax apparent. CARDIOVASCULAR: Normal. OSSEOUS STRUCTURES: No significant abnormalities. VISUALIZED UPPER ABDOMEN: The previous study showed a nasogastric tube in satisfactory position. The tube is no longer seen OTHER FINDINGS: None. IMPRESSION: The previous study showed a nasogastric tube in satisfactory position. The tube is no longer seen
--- NOTE | 2017-12-26 14:31 | US ---
PROCEDURE: Ultrasound of the Kidneys HISTORY: no urine output COMPARISON: 12/15/2017 CT abdomen and pelvis. TECHNIQUE: Sonogram of the kidneys. FINDINGS: RIGHT KIDNEY: Measures: 4.2 x 5.2 x 11.1 cm. Normal in size, contour and echogenicity. No stone, solid mass lesion or hydronephrosis visualized. LEFT KIDNEY: Measures: 6.1 x 6.5 x 9.4 cm. Normal in size, contour and echogenicity. No stone, solid mass lesion or hydronephrosis visualized. OTHER FINDINGS: None. IMPRESSION: Unremarkable renal sonogram.
--- NOTE | 2017-12-26 15:48 | RAD ---
HISTORY: check NG tube placement COMPARISON: No prior. FINDINGS: LUNGS: No active pulmonary disease. PLEURA: No significant pleural effusion identified, no pneumothorax apparent. CARDIOVASCULAR: Normal. OSSEOUS STRUCTURES: No significant abnormalities. VISUALIZED UPPER ABDOMEN: The nasogastric tube is in satisfactory position OTHER FINDINGS: None. IMPRESSION: Nasogastric feeding tube in satisfactory position
[2017-12-26 16:49] LABS: BASO # 0.03 K/mm3 (0.0-2.0); BASO % 0.2 % (0.0-3.0); EOS % 0.1 % (1.5-5.0); GRAN # 12.22 (1.4-6.5); GRAN % 75.8 % (50.0-68.0); HEMOGLOBIN 10.6 g/dL (12.0-16.0); LYMPH # 1.9 (1.2-3.4); LYMPH % 11.7 % (22.0-35.0); MEAN CELL VOLUME 98.8 fl (80.0-105.0); MEAN CORPUSCULAR HEMOGLOBIN 31.2 pg (25.0-35.0); MEAN CORPUSCULAR HGB CONC 31.5 g/dl (31.0-37.0); MEAN PLATELET VOLUME 10.3 fl (7.0-11.0); MONO % 12.2 % (1.0-6.0); PLATELET COUNT 265 10^3/uL (120.0-450.0); RED CELL DISTRIBUTION WIDTH 21.4 % (11.5-14.5); WHITE BLOOD COUNT 16.1 10^3/ul (4.5-11.0)
--- NOTE | 2017-12-26 18:12 | CP.PCM.PN ---
Subjective - Date & Time of Evaluation Date of Evaluation: 12/26/17 Time of Evaluation: 16:00 - Subjective Subjective: Infectious Disease Follow Up: December 26, 2017 47 year old female with past medical history of colon cancer with metastasis to the liver, diverticulitis, obesity, and chronic gastritis presents to the hospital for 3 day history of worsening abdominal pain. Patient was very lethargic during exam and unable to answer all questions. Much of history provided is from prior medical records. Patient has abdominal pain at baseline, but it is now much worse in the RLQ. Patient very lethargic on exam. Responds to painful stimuli. ROS unobtainable due to altered mental status. Many family member at bedside. Family appears to be coming to term with the severity of the patient's illnesses. The children have agreed to DNR and DNI. Enterococcus grew in urine cultures sensitive to Ampicillin. Patient is currently on Unasyn. Remains fatigued but patient is overall more responsive and can hold short conversations. Lack of bowel movements the last few days. Patient failed swallow study and required placement of Dobhoff tube for feeding on 12/24/2017. No additional issues. On Unasyn day 7. Objective - Vital Signs/Intake and Output Vital Signs (last 24 hours): Temp Pulse Resp BP Pulse Ox 97.4 F L 100 H 20 123/77 100 12/26/17 08:30 12/26/17 08:30 12/26/17 08:30 12/26/17 08:30 12/26/17 08:30 Intake and Output: 12/26/17 12/26/17 06:59 18:59 Intake Total 3050 0 Output Total 150 50 Balance 2900 -50 - Medications Medications: Current Medications Famotidine (Pepcid 20mg/50ml Premix) 20 mg in 50 mls @ 100 mls/hr IVPB Q12 [facility] Last Admin: 12/26/17 09:33 Dose: 100 mls/hr Ampicillin Sodium/Sulbactam Sodium (Unasyn) 1 gm in 100 mls @ 100 mls/hr IVPB TID [facility] PRN Reason: Protocol Stop: 12/27/17 18:01 Last Admin: 12/26/17 17:10 Dose: 100 mls/hr Dextrose/Sodium Chloride (Dextrose 5%/0.9% Ns 1000 Ml) 1,000 mls @ 100 mls/hr IV .Q10H [facility] Last Admin: 12/26/17 05:35 Dose: 100 mls/hr Morphine Sulfate (Morphine) 1 mg IVP Q4H PRN PRN Reason: Pain, severe (8-10) Last Admin: 12/26/17 17:15 Dose: 1 mg Nystatin (Nystop Topical Powder) 0 gm TOP BID [facility] Last Admin: 12/26/17 17:12 Dose: 1 applic Ondansetron HCl (Zofran Inj) 4 mg IVP Q6H PRN PRN Reason: Nausea/Vomiting Silver Sulfadiazine (Silvadene 1% 25 Gm) 0 gm TP BID [facility] Last Admin: 12/26/17 17:12 Dose: 25 gm - Labs Labs: 12/26/17 16:22 12/26/17 06:30 - Constitutional Appears: Non-toxic, No Acute Distress, Chronically Ill - Head Exam Head Exam: NORMOCEPHALIC Additional comments: dobhoff in place. - Eye Exam Eye Exam: EOMI, PERRL Pupil Exam: NORMAL ACCOMODATION, PERRL - ENT Exam ENT Exam: Mucous Membranes Moist, Normal External Ear Exam, TM's Normal Bilaterally - Neck Exam Neck Exam: Full ROM, Normal Inspection - Respiratory Exam Respiratory Exam: Decreased Breath Sounds. absent: Rales, Rhonchi, Wheezes - Cardiovascular Exam Cardiovascular Exam: REGULAR RHYTHM, RRR, +S1, +S2 - GI/Abdominal Exam GI & Abdominal Exam: Soft, Normal Bowel Sounds. absent: Distended, Tenderness - Extremities Exam Additional comments: +2 edema of all four extremities. - Neurological Exam Neurological Exam: Alert, Awake Additional comments: fatigued. AAO x 1 - Psychiatric Exam Psychiatric exam: Normal Affect, Normal Mood Additional comments: when aroused. Fatigued otherwise. - Skin Additional comments: edematous. Assessment and Plan - Assessment and Plan (Free Text) Assessment: 47 yo AA female with colon cancer with metastatic disease to the liver. On Vancomycin and Zosyn for antibiotic coverage. 3 days of worsening abdominal pain. She is currently a full code status. The patient has a terminal cancer. Mild leukocytosis. The patient has an altered mental status. Procalcitonin level is 11.45. Procalcitonin elevation may be secondary to her metastatic colon cancer. So in this case, an elevated procalcitonin may not mean an infectious process. Procalcitonin cannot be used to prove or disprove presence of an infection especially in this case. Regardless, the patient's overall prognosis is very poor at this time. Currently she is responsive to name. Heavily fatigued. Enterococcus in urine cultures. Continue antibiotics of Unasyn IV. Looking for 10 days of treatment. On day 7 now (started on evening of 12/17/2017) Supportive care. Dismal long and short term prognosis. Patient's children have agreed to DNI/DNR. The patient mentation has improved. Liver function continues to downtrend. Part of the elevated liver function is likely secondary to the liver metastatic disease. Mild Leukocytosis of 16.1 still present. LFTs have been improving on the whole but remain elevated. Recheck tomorrow. Patient failed swallow study and required Dobhoff tube placement 12/24/2017. Repeat procalcitonin showing 2.65. Patient is diffusely edematous. lethargic but arousable. Thank you for allowing me to participate in the care of the patient, we will follow with you.
[2017-12-26] MEDS: Sodium Chloride 0.45% 1,000 ML IV SCH (18:47)
--- NOTE | 2017-12-26 22:44 | PN ---
DATE: 12/26/2017 SUBJECTIVE: This 47-year-old female was examined at her bedside and her case was reviewed in detail with her nurse, Chana Mendosa registered nurse. The patient has been scheduled for renal ultrasound because of decreasing urinary output and rising BUN and creatinine. The patient was given a fluid challenge and one dose of parenteral Lasix and yesterday had a urinary output of 50 mL. Urine output thus far today is approximately 100 mL and she is receiving IV fluids at present. There have been no reports of fever, chills, chest pain, hematemesis, or melena and she remains with metabolic encephalopathy in the setting of metastatic colon cancer to her liver with markedly elevated liver function testing. She remains in a normal sinus rhythm on the rrt. PHYSICAL EXAMINATION: VITAL SIGNS: Her temperature was 97.4, respirations 20, pulse of100, and blood pressure 123/77 with a pulse ox of 100%. HEENT: Head normocephalic, atraumatic. Eyes, no icterus. Ears, clear. Throat, noninjected. NECK: Supple. HEART: Regular S1, S2. LUNGS: Clear. ABDOMEN: Obese, nontender. No palpable organomegaly. No rebound. No guarding. No tenderness. EXTREMITIES: A 1+ edema. SKIN: Without rash. NEUROLOGICAL: Metabolic encephalopathy. VASCULAR: Legs warm to touch. PSYCHOLOGICAL: Lethargic. LABORATORY DATA: White count 16,100, hemoglobin 10.6, hematocrit 33.6, platelets 265,000. Sodium 139, K 3.7, chloride 109, bicarb 14, BUN 32, creatinine 2.2, random blood sugar 145. Bilirubin 8.9, AST 217, ALT 60, and alkaline phosphatase 243. Procalcitonin level was 2.65, high, previously 11.45. Previous urine cultures are growing Enterococcus faecalis sensitive to ampicillin. Chest x-ray this morning showed her Dobbhoff tube was no longer in her stomach. Nursing staff found it in her nose and therefore removed it. IMPRESSION: A 47-year-old female with stage IV metastatic colon cancer to liver with metabolic encephalopathy, acute renal insufficiency, urinary tract infection with Enterococcus faecalis, on IV Unasyn 1.5 g q. 8 hours for a total of 10 days under the recommendation of Dr. Clif Curiel from Infectious Disease with leukocytosis, improved procalcitonin levels, anemia of chronic disease, pain syndrome, peptic ulcer disease with gastroesophageal reflux disease, and marked deconditioning. The patient remains DNR/DNI. PLAN: To replace NG tube and the patient remains n.p.o. for all oral feeding, fluids, and meds and will receive feedings as outlined by Dr. Jimenez including Jevity at 30 mL/hour when NG tube is successfully replaced. She is ordered to have aspiration precautions, Unasyn 1.5 g IV piggyback q. 8 hours for a total of 10-day course, Zofran 4 mg IV q. 6 hours p.r.n. nausea, vomiting, Pepcid 20 mg IV q. 12, morphine 1 mg IV q. 4 hours p.r.n. severe pain. She was ordered to have one dose of lactulose 30 g through her NG tube by Dr. Jimenez and she will continue on D5, 0.9 saline at 100 mL/hour. The patient will have an ammonia level in the a.m. Her ammonia level most recently was 32, within normal limits on 12/24 and overall prognosis remains extremely poor. The patient will be treated in a supportive and compassionate way. Greater than 35 minutes was spent in the care, management, review of labs, orders, and discussion of this patient with family and nursing. All questions were answered. Karol Banks MD [facility]
[2017-12-26 22:55] LABS: BAND 8 % (0-2); LYMPHOCYTE 14 % (22.0-35.0); MONOCYTE 8 % (1.0-6.0); NEUTROPHIL 64 % (50.0-70.0)
[2017-12-26 22:56] LABS: ANISOCYTOSIS 1+; HYPOCHROMIA SLIGHT; METAMYELOCYTE 4 %; MYELOCYTE 1 %; PLATELET ESTIMATE NORMAL (NORMAL); PROMYELOCYTE 1 %
[2017-12-26 22:57] LABS: SPHEROCYTE SLIGHT; TARGET CELLS SLIGHT; TEAR DROP CELLS SLIGHT
[2017-12-27] MEDS ORDERED: Morphine 2 mg/ml ISec IVP STA ×2 (03:54→17:59)
--- NOTE | 2017-12-27 04:13 | CP.PCM.PN ---
Subjective - Date & Time of Evaluation Date of Evaluation: 12/27/17 Time of Evaluation: 04:07 - Subjective Subjective: 04:08. Patient was seen at bedside. Nurse calls and tells that patient has been moaning, has order for morphine 1 mg IV Q4H prn, last dose was given at midnight. Ordered has been discontinued. Has no other complaints. Medical record was reviewed. This 47 year old woman was admitted abdominal pain, nausea, vomiting, difficulty with tolerating diet. Has no PMH of metastatic colon cancer, chronic gastritis, S/P colonic surgery for diverticulosis/diverticulitis, left partial colectomy, obesity, S/P chemotherapy, S/P Port-a-cath insertion. Objective - Vital Signs/Intake and Output Vital Signs (last 24 hours): Temp Pulse Resp BP Pulse Ox 98.1 F 105 H 20 112/69 98 12/26/17 16:00 12/26/17 16:00 12/26/17 16:00 12/26/17 16:00 12/26/17 16:00 Intake and Output: 12/26/17 12/27/17 18:59 06:59 Intake Total 0 0 Output Total 50 Balance -50 0 - Medications Medications: Current Medications Famotidine (Pepcid 20mg/50ml Premix) 20 mg in 50 mls @ 100 mls/hr IVPB Q12 [facility] Last Admin: 12/26/17 21:21 Dose: 100 mls/hr Ampicillin Sodium/Sulbactam Sodium (Unasyn) 1 gm in 100 mls @ 100 mls/hr IVPB TID [facility] PRN Reason: Protocol Stop: 12/27/17 18:01 Last Admin: 12/26/17 17:10 Dose: 100 mls/hr Sodium Chloride (Sodium Chloride 0.45%) 1,000 mls @ 100 mls/hr IV .Q10H [facility] Last Admin: 12/26/17 18:47 Dose: 100 mls/hr Nystatin (Nystop Topical Powder) 0 gm TOP BID [facility] Last Admin: 12/26/17 17:12 Dose: 1 applic Ondansetron HCl (Zofran Inj) 4 mg IVP Q6H PRN PRN Reason: Nausea/Vomiting Silver Sulfadiazine (Silvadene 1% 25 Gm) 0 gm TP BID [facility] Last Admin: 12/26/17 17:12 Dose: 25 gm - Labs Labs: 12/26/17 16:22 12/26/17 06:30 Micro Results 12/16/17 09:30 Blood-Venous Blood Culture - Final NO GROWTH AFTER 5 DAYS 12/16/17 09:30 Blood-Venous Gram Stain - Final TEST NOT PERFORMED 12/15/17 01:35 Blood Blood Culture - Final NO GROWTH AFTER 5 DAYS 12/15/17 01:35 Blood Gram Stain - Final TEST NOT PERFORMED 12/15/17 01:20 Blood Blood Culture - Final NO GROWTH AFTER 5 DAYS 12/15/17 01:20 Blood Gram Stain - Final TEST NOT PERFORMED 12/17/17 21:45 Urine Urine Culture - Final No Growth (<1,000 CFU/ML) 12/15/17 02:55 Urine Urine Culture - Final Enterococcus Faecalis 12/16/17 10:41 Naris MRSA Culture (Admit) - Final MRSA NOT DETECTED Most Recent Lab Values WBC 16.1 10^3/ul (4.5-11.0) H D 12/26/17 16:22 RBC 3.40 10^6/uL (3.5-6.1) L 12/26/17 16:22 Hgb 10.6 g/dL (12.0-16.0) L 12/26/17 16:22 Hct 33.6 % (36.0-48.0) L 12/26/17 16:22 MCV 98.8 fl (80.0-105.0) 12/26/17 16:22 MCH 31.2 pg (25.0-35.0) 12/26/17 16:22 MCHC 31.5 g/dl (31.0-37.0) 12/26/17 16:22 RDW 21.4 % (11.5-14.5) H 12/26/17 16:22 Plt Count 265 10^3/uL (120.0-450.0) 12/26/17 16:22 MPV 10.3 fl (7.0-11.0) 12/26/17 16:22 Gran % 75.8 % (50.0-68.0) H 12/26/17 16:22 Lymph % (Auto) 11.7 % (22.0-35.0) L 12/26/17 16:22 [place] % (Auto) 12.2 % (1.0-6.0) H 12/26/17 16:22 Eos % (Auto) 0.1 % (1.5-5.0) L 12/26/17 16:22 Baso % (Auto) 0.2 % (0.0-3.0) 12/26/17 16:22 Gran # 12.22 (1.4-6.5) H 12/26/17 16:22 Lymph # (Auto) 1.9 (1.2-3.4) 12/26/17 16:22 [place] # (Auto) 2.0 (0.1-0.6) H 12/26/17 16:22 Eos # (Auto) 0.0 (0.0-0.7) 12/26/17 16:22 Baso # (Auto) 0.03 K/mm3 (0.0-2.0) 12/26/17 16:22 Neutrophils % (Manual) 64 % (50.0-70.0) 12/26/17 16:22 Band Neutrophils % 8 % (0-2) H 12/26/17 16:22 Lymphocytes % (Manual) 14 % (22.0-35.0) L 12/26/17 16:22 Monocytes % (Manual) 8 % (1.0-6.0) H 12/26/17 16:22 Metamyelocytes % 4 % 12/26/17 16:22 Myelocytes % 1 % 12/26/17 16:22 Promyelocytes % 1 % 12/26/17 16:22 Platelet Evaluation Normal (NORMAL) 12/26/17 16:22 Hypochromasia Slight 12/26/17 16:22 Anisocytosis (manual) 1+ 12/26/17 16:22 Macrocytosis (manual) 1+ 12/26/17 16:22 Spherocytes Slight 12/26/17 16:22 Target Cells Slight 12/26/17 16:22 Tear Drop Cells Slight 12/26/17 16:22 pCO2 31 mm/Hg (35-45) L 12/16/17 09:50 pO2 92 mm/Hg (30-55) H 12/17/17 01:15 HCO3 21.1 mmol/L (21-28) 12/16/17 09:50 ABG pH 7.44 (7.35-7.45) 12/16/17 09:50 ABG Total CO2 22.1 mmol.L (22-28) 12/16/17 09:50 ABG O2 Saturation 98.3 % (95-98) H 12/16/17 09:50 ABG Base Excess -2.1 mmol/L (-2.0-3.0) L 12/16/17 09:50 ABG Potassium 3.4 mmol/L (3.6-5.2) L 12/16/17 09:50 VBG pH 7.44 (7.32-7.43) H 12/17/17 01:15 VBG pCO2 31.0 (40-60) L 12/17/17 01:15 VBG HCO3 21.1 mmol/l (21-28) 12/17/17 01:15 VBG Total CO2 22.1 mmol.L (22-28) 12/17/17 01:15 VBG O2 Sat (Calc) 99.7 % (40-65) H 12/17/17 01:15 VBG Base Excess -2.1 mmol/L (0.0-2.0) L 12/17/17 01:15 VBG Potassium 3.9 mmol/L (3.6-5.2) 12/17/17 01:15 Sodium 139.0 mmol/L (132-148) 12/17/17 01:15 Chloride 107.0 mmol/L (98-107) 12/17/17 01:15 Glucose 154 mg/dl (65-105) H 12/17/17 01:15 Lactate 5.9 mmol/L (0.7-2.1) H* 12/17/17 01:15 FiO2 21.0 % 12/17/17 01:15 Sodium 139 mmol/L (132-148) 12/26/17 06:30 Potassium 3.7 mmol/L (3.6-5.0) 12/26/17 06:30 Chloride 109 mmol/L (98-107) H 12/26/17 06:30 Carbon Dioxide 14 mmol/L (21-33) L 12/26/17 06:30 Anion Gap 20 (10-20) 12/26/17 06:30 BUN 32 mg/dL (7-21) H 12/26/17 06:30 Creatinine 2.2 mg/dl (0.7-1.2) H 12/26/17 06:30 Est GFR ( Amer) 29 12/26/17 06:30 Est GFR (Non-Af Amer) 24 12/26/17 06:30 POC Glucose (mg/dL) 91 mg/dL (65-110) 12/26/17 21:46 Random Glucose 146 mg/dL (70-110) H 12/26/17 06:30 Lactic Acid 3.3 mmol/L (0.7-2.1) H 12/16/17 06:54 Calcium 9.4 mg/dL (8.4-10.5) 12/26/17 06:30 Total Bilirubin 8.9 mg/dL (0.2-1.3) H 12/26/17 06:30 Direct Bilirubin 5.0 mg/dL (0.0-0.4) H 12/15/17 02:19 AST 217 U/L (14-36) H 12/26/17 06:30 ALT 60 U/L (7-56) H 12/26/17 06:30 Alkaline Phosphatase 243 U/L (38-126) H 12/26/17 06:30 Ammonia 32 umol/L (9-33) 12/24/17 14:26 Total Protein 6.7 g/dL (5.8-8.3) 12/26/17 06:30 Albumin 2.4 g/dL (3.0-4.8) L 12/26/17 06:30 Globulin 4.4 gm/dL 12/26/17 06:30 Albumin/Globulin Ratio 0.5 (1.1-1.8) L 12/26/17 06:30 Lipase 33 U/L (23-300) 12/15/17 02:19 Procalcitonin 2.65 NG/ML (0.19-0.49) H 12/26/17 06:30 Arterial Blood Potassium 3.4 mmol/L (3.6-5.2) L 12/16/17 09:50 Venous Blood Potassium 3.9 mmol/L (3.6-5.2) 12/17/17 01:15 Urine Color Dark yellow (YELLOW) 12/15/17 02:55 Urine Appearance Clear (CLEAR) 12/15/17 02:55 Urine pH 5.5 (4.7-8.0) 12/15/17 02:55 Ur Specific [place] >= 1.030 (1.005-1.035) 12/15/17 02:55 Urine Protein 100 mg/dL (<30 mg/dL) H 12/15/17 02:55 Urine Glucose (UA) Negative mg/dL (NEGATIVE) 12/15/17 02:55 Urine Ketones Trace mg/dL (NEGATIVE) H 12/15/17 02:55 Urine Blood Negative (NEGATIVE) 12/15/17 02:55 Urine Nitrate Negative (NEGATIVE) 12/15/17 02:55 Urine Bilirubin Large (NEGATIVE) H 12/15/17 02:55 Urine Urobilinogen 1.0 E.U./dL (<1 E.U./dL) H 12/15/17 02:55 Ur Leukocyte Esterase Negative Marry/uL (NEGATIVE) 12/15/17 02:55 Urine RBC 0 - 2 /hpf (0-2) 12/15/17 02:55 Urine WBC 0 - 2 /hpf (0-6) 12/15/17 02:55 Ur Epithelial Cells 0 - 2 /hpf (0-5) 12/15/17 02:55 Ur Random Sodium 48 meq/L 12/25/17 18:40 Ur Random Uric Acid 61.1 mg/dL 12/25/17 18:40 - Constitutional Appears: Well, No Acute Distress - Head Exam Head Exam: ATRAUMATIC, NORMAL INSPECTION, NORMOCEPHALIC Additional comments: Has been moaning periodically. - Eye Exam Eye Exam: Normal appearance - ENT Exam ENT Exam: Normal External Ear Exam Additional comments: Right nostril has NGT presence. - Neck Exam Neck Exam: Normal Inspection - Respiratory Exam Respiratory Exam: NORMAL BREATHING PATTERN - Cardiovascular Exam Cardiovascular Exam: absent: JVD - GI/Abdominal Exam GI & Abdominal Exam: absent: Distended - Rectal Exam Rectal Exam: Deferred - Exam Additional comments: Deferred. - Extremities Exam Extremities Exam: Normal Inspection - Back Exam Back Exam: NORMAL INSPECTION - Neurological Exam Neurological Exam: Altered - Psychiatric Exam Psychiatric exam: Depressed - Skin Skin Exam: Normal Color Assessment and Plan - Assessment and Plan (Free Text) Assessment: In pain. Moaning. Metastatic colon cancer. Mets to liver. S/P partial colectomy. History diverticulosis. History diverticulitids. Obesity. Leukocytosis. Anemia. Metabolic acidosis. Renal insufficiency. Elevated LFT's. Hyperbilirubinemia. Plan: Morphine sulphate 1 mg IV x 1. Continue present management as per PMD.
[2017-12-27] MEDS: Sodium Chloride 0.45% 1,000 ML IV SCH (05:33)
[2017-12-27 06:54] LABS: CALCIUM 9.1 mg/dL (8.4-10.5)
[2017-12-27] MEDS: Nystatin 100,000 Units/gm Topical Pow(15 gm) TOP SCH ×2 (10:12→17:47)
[2017-12-27] MEDS: Silver Sulfadiazine 1% Cream (25 gm) TP SCH ×2 (10:12→17:47)
[2017-12-27] MEDS: Famotidine 20mg/50ml 20 MG/50 ML BAG IVPB SCH ×2 (10:13→21:03)
[2017-12-27] MEDS: Morphine 2 mg/ml ISec IVP PRN ×3 (10:20→21:01)
[2017-12-27] MEDS: AMPicillin/Sulbactam 1.5gm 1 GM/100 ML BAG IVPB SCH ×3 (11:13→18:24)
--- NOTE | 2017-12-27 12:43 | CP.PCM.PN ---
Subjective - Date & Time of Evaluation Date of Evaluation: 12/27/17 Time of Evaluation: 13:00 - Subjective Subjective: Obtunded. Moaning, appears uncomfortable Objective - Vital Signs/Intake and Output Vital Signs (last 24 hours): Temp Pulse Resp BP Pulse Ox 97.6 F 101 H 19 131/83 98 12/27/17 08:39 12/27/17 08:39 12/27/17 08:39 12/27/17 08:39 12/27/17 08:39 Intake and Output: 12/27/17 12/27/17 06:59 18:59 Intake Total 0 Output Total 150 Balance -150 - Medications Medications: Current Medications Famotidine (Pepcid 20mg/50ml Premix) 20 mg in 50 mls @ 100 mls/hr IVPB Q12 [facility] Last Admin: 12/27/17 10:13 Dose: 100 mls/hr Ampicillin Sodium/Sulbactam Sodium (Unasyn) 1 gm in 100 mls @ 100 mls/hr IVPB TID [facility] PRN Reason: Protocol Stop: 12/27/17 18:01 Last Admin: 12/27/17 11:13 Dose: 100 mls/hr Sodium Chloride (Sodium Chloride 0.45%) 1,000 mls @ 100 mls/hr IV .Q10H [facility] Last Admin: 12/27/17 05:33 Dose: 100 mls/hr Morphine Sulfate (Morphine) 1 mg IVP Q4H PRN PRN Reason: Pain, severe (8-10) Last Admin: 12/27/17 10:20 Dose: 1 mg Nystatin (Nystop Topical Powder) 0 gm TOP BID [facility] Last Admin: 12/27/17 10:12 Dose: 1 applic Ondansetron HCl (Zofran Inj) 4 mg IVP Q6H PRN PRN Reason: Nausea/Vomiting Silver Sulfadiazine (Silvadene 1% 25 Gm) 0 gm TP BID [facility] Last Admin: 12/27/17 10:12 Dose: 25 gm - Labs Labs: 12/26/17 16:22 12/27/17 06:00 - Constitutional Appears: Chronically Ill - Head Exam Head Exam: NORMOCEPHALIC - Eye Exam Eye Exam: Scleral icterus - ENT Exam ENT Exam: Mucous Membranes Moist - Respiratory Exam Respiratory Exam: Decreased Breath Sounds, NORMAL BREATHING PATTERN - Cardiovascular Exam Cardiovascular Exam: REGULAR RHYTHM, +S1, +S2 - GI/Abdominal Exam GI & Abdominal Exam: Distended, Tenderness, Diminished Bowel Sounds Additional comments: abdomen with diffuse tenderness on palpation - Exam Additional comments: jackson>[email or web address] - Neurological Exam Neurological Exam: Altered - Skin Skin Exam: Pallor Additional comments: generalized anasarca Assessment and Plan - Assessment and Plan (Free Text) Assessment: 47 year old female with history of metastatic colon cancer who was admitted with sepsis, SILVIANO,transaminitis,altered mental status and abdominal pain. Patient non verbal, moaning, discomfort is exacerbated when moves d or repositioned. She is extremely edematous. She is oliguric. Patients nephew at bedside. Nephew understands patients diagnosis and terminal prognosis. Nephew expressed that his aunt would want to live this way and would prefer comfort car. Nephew asking hospice services. Hospice explained in detail. Questions answered. Nephew wants to initiate a family meeting to discuss option for hospice /comfort care. Psychosocial support provided. Time spent with nephew in goals of care and end of life discussions, 30 minutes. Plan: Palliative support in establishing goals of care End of life discussions
--- NOTE | 2017-12-27 12:50 | CP.PCM.PN ---
<Renuka Nevarez - Last Filed: 12/27/17 12:49> Subjective - Date & Time of Evaluation Date of Evaluation: 12/27/17 Time of Evaluation: 11:05 - Subjective Subjective: S&E at bedside, chart reviewed, patient reported to be tolerating tube feedings , Jevity at 30cc/hr, patient remains lethargic but easily arousable. No reports of overt GI bleeding. Objective - Vital Signs/Intake and Output Vital Signs (last 24 hours): Temp Pulse Resp BP Pulse Ox 97.6 F 101 H 19 131/83 98 12/27/17 08:39 12/27/17 08:39 12/27/17 08:39 12/27/17 08:39 12/27/17 08:39 Intake and Output: 12/27/17 12/27/17 06:59 18:59 Intake Total 0 Output Total 150 Balance -150 - Medications Medications: Current Medications Famotidine (Pepcid 20mg/50ml Premix) 20 mg in 50 mls @ 100 mls/hr IVPB Q12 [facility] Last Admin: 12/27/17 10:13 Dose: 100 mls/hr Ampicillin Sodium/Sulbactam Sodium (Unasyn) 1 gm in 100 mls @ 100 mls/hr IVPB TID [facility] PRN Reason: Protocol Stop: 12/27/17 18:01 Last Admin: 12/27/17 11:13 Dose: 100 mls/hr Sodium Chloride (Sodium Chloride 0.45%) 1,000 mls @ 100 mls/hr IV .Q10H [facility] Last Admin: 12/27/17 05:33 Dose: 100 mls/hr Morphine Sulfate (Morphine) 1 mg IVP Q4H PRN PRN Reason: Pain, severe (8-10) Last Admin: 12/27/17 10:20 Dose: 1 mg Nystatin (Nystop Topical Powder) 0 gm TOP BID [facility] Last Admin: 12/27/17 10:12 Dose: 1 applic Ondansetron HCl (Zofran Inj) 4 mg IVP Q6H PRN PRN Reason: Nausea/Vomiting Silver Sulfadiazine (Silvadene 1% 25 Gm) 0 gm TP BID [facility] Last Admin: 12/27/17 10:12 Dose: 25 gm - Labs Labs: 12/26/17 16:22 12/27/17 06:00 - Constitutional Appears: No Acute Distress, Chronically Ill - Head Exam Head Exam: NORMOCEPHALIC - Eye Exam Eye Exam: Scleral icterus - ENT Exam ENT Exam: Mucous Membranes Moist - Neck Exam Neck Exam: Normal Inspection - Respiratory Exam Respiratory Exam: NORMAL BREATHING PATTERN. absent: Respiratory Distress - Cardiovascular Exam Cardiovascular Exam: +S1, +S2 - GI/Abdominal Exam GI & Abdominal Exam: Soft, Normal Bowel Sounds. absent: Guarding, Tenderness, Rebound - Extremities Exam Extremities Exam: Pedal Edema - Neurological Exam Neurological Exam: Altered (lethargic but arousable) - Skin Skin Exam: Dry, Warm Assessment and Plan - Assessment and Plan (Free Text) Assessment: ASSESSMENT: Colon cancer with metastasis to liver Abdominal Pain Altered Mental Status 2/2 encephalopathy , ammonia , or narcotic induced Sepsis/leukocytosis Elevated LFT, metestatic liver disease UTI H/O diverticulosis/diverticulitits, s/p colectomy PLAN: NPO, have Dobhoff, Jevity at 30 cc/hr w/free water, tolerating continue IVF on IV Pepcid on Morphine on IV antibiotics, unasyn trend LFTs Poor Prognosis, DNR/DNI spoke to nurse , family may be considering hospice Seen and discussed w/ Dr. Jimenez. <Jessica Jimenez V - Last Filed: 12/27/17 23:30> Objective - Vital Signs/Intake and Output Vital Signs (last 24 hours): Temp Pulse Resp BP Pulse Ox 97.7 F 98 H 20 110/74 98 12/27/17 16:00 12/27/17 16:00 12/27/17 16:00 12/27/17 21:00 12/27/17 16:00 Intake and Output: 12/27/17 12/28/17 18:59 06:59 Intake Total 0 0 Output Total 200 100 Balance -200 -100 - Medications Medications: Current Medications Furosemide (Lasix) 40 mg IVP Q8 [facility] Stop: 12/28/17 14:01 Last Admin: 12/27/17 21:00 Dose: 40 mg Famotidine (Pepcid 20mg/50ml Premix) 20 mg in 50 mls @ 100 mls/hr IVPB Q12 [facility] Last Admin: 12/27/17 21:03 Dose: 100 mls/hr Sodium Chloride (Sodium Chloride 0.45%) 1,000 mls @ 60 mls/hr IV .[id number] [facility] Last Admin: 12/27/17 22:25 Dose: 60 mls/hr Morphine Sulfate (Morphine) 1 mg IVP Q3H PRN PRN Reason: Pain, severe (8-10) Last Admin: 12/27/17 21:01 Dose: 1 mg Nystatin (Nystop Topical Powder) 0 gm TOP BID [facility] Last Admin: 12/27/17 17:47 Dose: 1 applic Ondansetron HCl (Zofran Inj) 4 mg IVP Q6H PRN PRN Reason: Nausea/Vomiting Silver Sulfadiazine (Silvadene 1% 25 Gm) 0 gm TP BID [facility] Last Admin: 12/27/17 17:47 Dose: 25 gm - Labs Labs: 12/26/17 16:22 12/27/17 06:00 Attending/Attestation - Attestation I have personally seen and examined this patient.: Yes I have fully participated in the care of the patient.: Yes I have reviewed all pertinent clinical information, including history, physical exam and plan: Yes Notes (Text): This is an addendum to GI progress report dictated by Renuka Nevarez APN.The patient was seen and examined earlier. Medical records, lab studies, imagings were reviewed. Last 24 hours events reviewed. Agreed with the above treatment plan as outlined in Renuka Nevarez APN's notes the with the addition of the following Patient's complaining of abdominal discomfort extensive metastatic colon cancer On morphine every 4 hourly Worsening of the hepatic function Receiving feeding through Dobbhoff tube Patient is DNR/DNI Family's considering hospice care. It to make final decision Poor prognosis 12/27/17 23:27
--- NOTE | 2017-12-27 18:15 | CP.PCM.PN ---
Subjective - Date & Time of Evaluation Date of Evaluation: 12/27/17 Time of Evaluation: 16:08 - Subjective Subjective: Infectious Disease Follow Up: December 27, 2017 47 year old female with past medical history of colon cancer with metastasis to the liver, diverticulitis, obesity, and chronic gastritis presents to the hospital for 3 day history of worsening abdominal pain. Patient was very lethargic during exam and unable to answer all questions. Much of history provided is from prior medical records. Patient has abdominal pain at baseline, but it is now much worse in the RLQ. Patient very lethargic on exam. Responds to painful stimuli. ROS unobtainable due to altered mental status. Many family member at bedside. Family appears to be coming to term with the severity of the patient's illnesses. The children have agreed to DNR and DNI. Enterococcus grew in urine cultures sensitive to Ampicillin. Patient is currently on Unasyn. Remains fatigued but patient is overall more responsive and can hold short conversations. Lack of bowel movements the last few days. Patient failed swallow study and required placement of Dobhoff tube for feeding on 12/24/2017. No additional issues. On Unasyn day 8. Objective - Vital Signs/Intake and Output Vital Signs (last 24 hours): Temp Pulse Resp BP Pulse Ox 97.7 F 98 H 20 110/74 98 12/27/17 16:00 12/27/17 16:00 12/27/17 16:00 12/27/17 16:00 12/27/17 16:00 Intake and Output: 12/27/17 12/27/17 06:59 18:59 Intake Total 0 0 Output Total 150 200 Balance -150 -200 - Medications Medications: Current Medications Furosemide (Lasix) 40 mg IVP Q8 [facility] Stop: 12/28/17 14:01 Famotidine (Pepcid 20mg/50ml Premix) 20 mg in 50 mls @ 100 mls/hr IVPB Q12 [facility] Last Admin: 12/27/17 10:13 Dose: 100 mls/hr Sodium Chloride (Sodium Chloride 0.45%) 1,000 mls @ 100 mls/hr IV .Q10H [facility] Last Admin: 12/27/17 05:33 Dose: 100 mls/hr Morphine Sulfate (Morphine) 1 mg IVP Q4H PRN PRN Reason: Pain, severe (8-10) Last Admin: 12/27/17 14:48 Dose: 1 mg Nystatin (Nystop Topical Powder) 0 gm TOP BID [facility] Last Admin: 12/27/17 17:47 Dose: 1 applic Ondansetron HCl (Zofran Inj) 4 mg IVP Q6H PRN PRN Reason: Nausea/Vomiting Silver Sulfadiazine (Silvadene 1% 25 Gm) 0 gm TP BID [facility] Last Admin: 12/27/17 17:47 Dose: 25 gm - Labs Labs: 12/26/17 16:22 12/27/17 06:00 - Constitutional Appears: Non-toxic, No Acute Distress, Chronically Ill - Head Exam Head Exam: NORMOCEPHALIC Additional comments: dobhoff in place. - Eye Exam Eye Exam: EOMI, PERRL Pupil Exam: NORMAL ACCOMODATION, PERRL - ENT Exam ENT Exam: Mucous Membranes Moist, Normal External Ear Exam, TM's Normal Bilaterally - Neck Exam Neck Exam: Full ROM, Normal Inspection - Respiratory Exam Respiratory Exam: Decreased Breath Sounds. absent: Rales, Rhonchi, Wheezes - Cardiovascular Exam Cardiovascular Exam: REGULAR RHYTHM, RRR, +S1, +S2 - GI/Abdominal Exam GI & Abdominal Exam: Soft, Normal Bowel Sounds. absent: Distended, Tenderness - Extremities Exam Additional comments: +2 edema of all four extremities. - Neurological Exam Neurological Exam: Alert, Awake Additional comments: fatigued. AAO x 1 - Psychiatric Exam Psychiatric exam: Normal Affect, Normal Mood Additional comments: when aroused. Fatigued otherwise. - Skin Additional comments: edematous. Assessment and Plan - Assessment and Plan (Free Text) Assessment: 47 yo AA female with colon cancer with metastatic disease to the liver. On Vancomycin and Zosyn for antibiotic coverage. 3 days of worsening abdominal pain. She is currently a full code status. The patient has a terminal cancer. Mild leukocytosis. The patient has an altered mental status. Procalcitonin level is 11.45. Procalcitonin elevation may be secondary to her metastatic colon cancer. So in this case, an elevated procalcitonin may not mean an infectious process. Procalcitonin cannot be used to prove or disprove presence of an infection especially in this case. Regardless, the patient's overall prognosis is very poor at this time. Currently she is responsive to name. Heavily fatigued. Enterococcus in urine cultures. Continue antibiotics of Unasyn IV. Looking for 10 days of treatment. On day 7 now (started on evening of 12/17/2017) Supportive care. Dismal long and short term prognosis. Patient's children have agreed to DNI/DNR. The patient mentation has improved. Liver function continues to downtrend. Part of the elevated liver function is likely secondary to the liver metastatic disease. Mild Leukocytosis of 16.1 still present. LFTs have been improving on the whole but remain elevated. Patient failed swallow study and required Dobhoff tube placement 12/24/2017. Repeat procalcitonin showing 2.65. Patient is diffusely edematous. lethargic but arousable. No new issues. Thank you for allowing me to participate in the care of the patient, we will follow with you.
--- NOTE | 2017-12-27 21:35 | PN ---
DATE: 12/27/2017 SUBJECTIVE: This 47-year-old female remains hospitalized with multiple medical problems including stage IV metastatic colon cancer to the liver and comorbidities of metabolic encephalopathy, anemia of chronic disease, altered mental status prohibiting the patient from tolerating any p.o. fluids or medications, and also with acute renal insufficiency. The patient has evidence of third-spaced fluids at the present time and remains markedly weak and deconditioned in a bedridden status. She remains DNR/DNI and Palliative executive consultant, nurse, Jacquie Ma is meeting with the family regarding pursuing hospice placement. PHYSICAL EXAMINATION: VITAL SIGNS: Temperature is 97.6, respirations 19, pulse 101, and blood pressure 131/83 with a pulse oximetry of 98%. Urine output is 350 mL thus far today after administration of parenteral Lasix. HEENT: Head: Normocephalic, atraumatic. Eyes: Positive icterus. Ears: Clear. Throat: Noninjected. NECK: Supple. HEART: Regular S1, S2. LUNGS: Clear. ABDOMEN: Obese. EXTREMITIES: Positive anasarca. VASCULAR: Legs are warm to touch. PSYCHOLOGIC: Encephalopathic. NEUROLOGIC: The patient remains lethargic. LABORATORY DATA: White count is 16,100, hemoglobin 10.6, hematocrit 33.6, and platelets 265,000. Sodium 140, potassium 3.8, chloride 110, bicarbonate 16, BUN 34, and creatinine 2.3. Estimated GFR is 27 mL/min, random blood sugar 107, calcium 9.1, and T4 normal at 5.6. IMPRESSION: A 47-year-old female with metastatic colon cancer to the liver and comorbidities of renal insufficiency with an estimated glomerular filtration rate of approximately 27 mL/minute as well as metabolic acidosis, anemia of chronic disease, anasarca, and failure to thrive. The patient has been treated for Enterococcus faecalis urinary tract infection with parenteral Unasyn, which should be completed at the end of today. PLAN: As discussed with the nurse, Blanche Carrasco - registered nurse, will be for Palliative Care to meet with the family regarding further management issues. The patient will remain DNR/DNI. At present, she is scheduled to receive Lasix 40 mg IV q. 8 hours for a total of three doses, morphine 1 mg IV q. 4 hours p.r.n. pain, Pepcid 20 mg IV q. 12 hours, Unasyn 1.5 g IV piggyback q. 8 hours for a total of 10-day course, and Zofran 4 mg IV q. 6 hours p.r.n. nausea and vomiting. She remains n.p.o. She remains on aspiration precautions. She continues on her Dobhoff tube feeds of Jevity at 30 mL/hour as per Dr. Jessica Jimenez from and is receiving bedside skin care and [place] bandages to legs for treatment of anasarca. Overall, prognosis remains extremely poor. Greater than 35 minutes were spent in the care, management, and review of x-rays, labs, and orders with nurse, Blanche Carrasco today. All questions were answered. Karol Banks MD [facility]
[2017-12-27] MEDS ORDERED: Sodium Chloride 0.45% 1,000 ML IV SCH (22:02)
[2017-12-28] MEDS: Morphine 2 mg/ml ISec IVP PRN ×7 (01:45→22:35)
[2017-12-28] MEDS: Famotidine 20mg/50ml 20 MG/50 ML BAG IVPB SCH ×2 (09:01→21:36)
[2017-12-28] MEDS: Silver Sulfadiazine 1% Cream (25 gm) TP SCH ×2 (09:03→17:33)
[2017-12-28] MEDS: Nystatin 100,000 Units/gm Topical Pow(15 gm) TOP SCH ×2 (09:03→17:33)
[2017-12-28] MEDS ORDERED: Sodium Chloride 0.45% 1,000 ML IV SCH (11:20)
--- NOTE | 2017-12-28 17:25 | PN ---
DATE: 12/28/2017 SUBJECTIVE: This 47-year-old female was examined at the bedside in the presence of her 2 brothers, her [id number] and case was reviewed in detail with Case Management and nurse, Blanche Tracey, registered nurse. The patient remains lethargic. She was moaning and in severe pain yesterday. Was seen in reevaluation by nurse, Jacquie Ma from palliative care and Dr. Jessica Jimenez, both of whom agreed on the adjustment of pain management orders in the setting of metabolic encephalopathy, stage IV metastatic colon cancer to liver with elevated liver function testing and marked deconditioning and bedridden status. The family at present is moving toward hospice placement and at present the patient is being treated with supportive, conservative, compassionate care. There have been no reports of fever, chills, chest pain, hematemesis or melena. PHYSICAL EXAMINATION: VITAL SIGNS: She remains in normal sinus rhythm with a temperature of 98.1, respirations 22, pulse 100 and blood pressure 139/82 with pulse ox 96%. HEENT: Head: Normocephalic, atraumatic. Eyes: Show icterus. Ears: Clear. Throat: Noninjected. NECK: Supple. HEART: Regular S1, S2. LUNGS: Clear. ABDOMEN: Obese. EXTREMITIES: Positive anasarca. SKIN: Without rash. NEUROLOGICAL: Lethargic. VASCULAR: Legs warm to touch. LABORATORY DATA: White count 16,100, hemoglobin 10.6, hematocrit 33.6, platelets 265,000. Random blood sugar 96. Previous electrolytes: Sodium 140, K 3.8, chloride 110, bicarb 16, BUN 34, creatinine 2.3. Estimated GFR 27 mL per minute, calcium 9.1. Thyroid normal at 5.6. Previous urine culture showed Enterococcus fecalis for which the patient completed a 10-day parenteral course of IV Unasyn. Repeat urine culture shows no growth. MRSA not detected on nasal swab and blood cultures most recently no growth. IMPRESSION: A 47-year-old female with stage IV metastatic colon cancer to liver with metabolic acidosis on the basis of lactic acidosis and metabolic encephalopathy secondary to altered liver function in a patient with recent urinary tract infection with Enterococcus faecalis, was completed a full 10-day course of IV Unasyn as directed by Dr. Clif Curiel, also with acute renal failure, anasarca, decreased urinary output despite IV fluids and IV Lasix with no evidence of obstructive uropathy on recent renal ultrasound, anemia of chronic disease and acute leukocytosis in the absence of recent sepsis. PLAN: At present is to maintain DNR/DNI. She is ordered to have 0.45 saline at 40 mL/hour. Morphine has been increased to 1 mg IV every 3 hours p.r.n. severe pain as approved by Dr. Jessica Jimenez from GI. She is receiving Pepcid 20 mg IV q. 12. Skin care orders. Zofran p.r.n. nausea, vomiting. She remains n.p.o. She is receiving Jevity 1.2 at 30 mL/hour via an NG tube. She remains on aspiration precautions. Moore for I's and O's and bedside therapy as able with skin care as ordered. Overall prognosis is extremely poor. This case was reviewed for greater than 60 minutes with siblings at bedside who all advised that they should pursue genetic counseling for themselves and screening colonoscopies given this family member's aggressive colon cancer. All questions were answered. Family will be pursuing hospice with case management. Karol Banks MD MTDD
--- NOTE | 2017-12-28 18:17 | CP.PCM.PN ---
Subjective - Date & Time of Evaluation Date of Evaluation: 12/28/17 Time of Evaluation: 14:00 - Subjective Subjective: Infectious Disease Follow Up: December 28, 2017 47 year old female with past medical history of colon cancer with metastasis to the liver, diverticulitis, obesity, and chronic gastritis presents to the hospital for 3 day history of worsening abdominal pain. Patient was very lethargic during exam and unable to answer all questions. Much of history provided is from prior medical records. Patient has abdominal pain at baseline, but it is now much worse in the RLQ. Patient very lethargic on exam. Responds to painful stimuli. ROS unobtainable due to altered mental status. Many family member at bedside. Family appears to be coming to term with the severity of the patient's illnesses. The children have agreed to DNR and DNI. Enterococcus grew in urine cultures sensitive to Ampicillin. Patient is currently on Unasyn. Remains fatigued but patient is overall more responsive and can hold short conversations. Lack of bowel movements the last few days. Patient failed swallow study and required placement of Dobhoff tube for feeding on 12/24/2017. No additional issues. On Unasyn day 9. Deteriorating slowly Objective - Vital Signs/Intake and Output Vital Signs (last 24 hours): Temp Pulse Resp BP Pulse Ox 97.6 F 100 H 20 120/77 98 12/28/17 16:00 12/28/17 16:00 12/28/17 16:00 12/28/17 16:00 12/28/17 16:00 Intake and Output: 12/28/17 12/28/17 06:59 18:59 Intake Total 2280 Output Total 200 Balance 2080 - Medications Medications: Current Medications Famotidine (Pepcid 20mg/50ml Premix) 20 mg in 50 mls @ 100 mls/hr IVPB Q12 [facility] Last Admin: 12/28/17 09:01 Dose: 100 mls/hr Sodium Chloride (Sodium Chloride 0.45%) 1,000 mls @ 40 mls/hr IV .Q24H [facility] Last Admin: 12/28/17 11:34 Dose: 40 mls/hr Morphine Sulfate (Morphine) 1 mg IVP Q3H PRN PRN Reason: Pain, severe (8-10) Last Admin: 12/28/17 17:32 Dose: 1 mg Nystatin (Nystop Topical Powder) 0 gm TOP BID [facility] Last Admin: 12/28/17 17:33 Dose: 1 applic Ondansetron HCl (Zofran Inj) 4 mg IVP Q6H PRN PRN Reason: Nausea/Vomiting Silver Sulfadiazine (Silvadene 1% 25 Gm) 0 gm TP BID [facility] Last Admin: 12/28/17 17:33 Dose: 25 gm - Labs Labs: 12/26/17 16:22 12/27/17 06:00 - Constitutional Appears: Non-toxic, No Acute Distress, Chronically Ill - Head Exam Head Exam: NORMOCEPHALIC Additional comments: Dobhoff in place - Eye Exam Eye Exam: EOMI, PERRL Pupil Exam: NORMAL ACCOMODATION, PERRL - ENT Exam ENT Exam: Mucous Membranes Moist, Normal External Ear Exam, TM's Normal Bilaterally - Neck Exam Neck Exam: Full ROM, Normal Inspection - Respiratory Exam Respiratory Exam: Decreased Breath Sounds, NORMAL BREATHING PATTERN. absent: Rales, Rhonchi, Wheezes - Cardiovascular Exam Cardiovascular Exam: REGULAR RHYTHM, RRR, +S1, +S2 - GI/Abdominal Exam GI & Abdominal Exam: Soft, Normal Bowel Sounds. absent: Distended, Tenderness - Extremities Exam Additional comments: +2 edema of all four extremities - Neurological Exam Neurological Exam: Alert, Awake Additional comments: fatigued. AAO x 1 - Psychiatric Exam Psychiatric exam: Normal Affect, Normal Mood Additional comments: when aroused. Fatigued otherwise. - Skin Additional comments: edematous. Assessment and Plan - Assessment and Plan (Free Text) Assessment: 47 yo AA female with colon cancer with metastatic disease to the liver. On Vancomycin and Zosyn for antibiotic coverage. 3 days of worsening abdominal pain. She is currently a full code status. The patient has a terminal cancer. Mild leukocytosis. The patient has an altered mental status. Procalcitonin level is 11.45. Procalcitonin elevation may be secondary to her metastatic colon cancer. So in this case, an elevated procalcitonin may not mean an infectious process. Procalcitonin cannot be used to prove or disprove presence of an infection especially in this case. Regardless, the patient's overall prognosis is very poor at this time. Currently she is responsive to name. Heavily fatigued. Enterococcus in urine cultures. Continue antibiotics of Unasyn IV. Looking for 10 days of treatment. On day 7 now (started on evening of 12/17/2017) Supportive care. Dismal long and short term prognosis. Patient's children have agreed to DNI/DNR. The patient mentation has improved. Liver function continues to downtrend. Part of the elevated liver function is likely secondary to the liver metastatic disease. Mild Leukocytosis of 16.1 still present. LFTs have been improving on the whole but remain elevated. Patient failed swallow study and required Dobhoff tube placement 12/24/2017. Repeat procalcitonin showing 2.65. Patient is diffusely edematous. lethargic but arousable. No new issues. Family considering hospice now. Thank you for allowing me to participate in the care of the patient, we will follow with you.
--- NOTE | 2017-12-29 02:07 | PN ---
DATE: 12/28/2017 SUBJECTIVE: This patient was seen and evaluated earlier today. The patient is lethargic, drowsy, having NG tube feeding, receiving morphine pain medication every 3 hourly. The patient's family was at bedside. PHYSICAL EXAMINATION: VITAL SIGNS: Temperature 98.1, pulse 103, blood pressure is 139/82, respirations 22, O2 saturation 96%. HEENT: Atraumatic, jaundiced. NECK: Supple. HEART: S1 and S2 heard. LUNGS: Bilateral air entry present. ABDOMEN: Distended. Tenderness present diffusely, more in the upper epigastric and right upper quadrant area. EXTREMITIES: Edema present. LABORATORY DATA: No labs ordered now. IMPRESSION AND PLAN: This is a 47-year-old patient with advanced metastatic colon cancer with liver metastases. The patient is considered supportive care. The patient"s family is trying to arrange a family meeting for hospice care placement. Presently, we will continue the supportive care. Family members were counseled multiple times regarding the evaluation for screening colonoscopy for high risks and also regarding genetic testing. Thank you very much for allowing me to participate in the care of the patient. Jessica Jimenez MD [facility]
[2017-12-29] MEDS: Morphine 2 mg/ml ISec IVP PRN ×6 (03:00→23:50)
--- NOTE | 2017-12-29 10:08 | CP.PCM.PN ---
Subjective - Date & Time of Evaluation Date of Evaluation: 12/29/17 Time of Evaluation: 10:00 - Subjective Subjective: Obtunded, moaning, appears uncomfortable. Objective - Vital Signs/Intake and Output Vital Signs (last 24 hours): Temp Pulse Resp BP Pulse Ox 97.6 F 100 H 20 120/77 98 12/28/17 16:00 12/28/17 16:00 12/28/17 16:00 12/28/17 16:00 12/28/17 16:00 Intake and Output: 12/29/17 12/29/17 06:59 18:59 Intake Total 1160 0 Output Total 100 100 Balance 1060 -100 - Medications Medications: Current Medications Famotidine (Pepcid 20mg/50ml Premix) 20 mg in 50 mls @ 100 mls/hr IVPB Q12 [facility] Last Admin: 12/28/17 21:36 Dose: 100 mls/hr Sodium Chloride (Sodium Chloride 0.45%) 1,000 mls @ 40 mls/hr IV .Q24H [facility] Last Admin: 12/28/17 11:34 Dose: 40 mls/hr Morphine Sulfate (Morphine) 1 mg IVP Q3H PRN PRN Reason: Pain, severe (8-10) Last Admin: 12/29/17 05:47 Dose: 1 mg Nystatin (Nystop Topical Powder) 0 gm TOP BID [facility] Last Admin: 12/28/17 17:33 Dose: 1 applic Ondansetron HCl (Zofran Inj) 4 mg IVP Q6H PRN PRN Reason: Nausea/Vomiting Silver Sulfadiazine (Silvadene 1% 25 Gm) 0 gm TP BID [facility] Last Admin: 12/28/17 17:33 Dose: 25 gm - Labs Labs: 12/26/17 16:22 12/27/17 06:00 - Constitutional Appears: Chronically Ill - Head Exam Head Exam: NORMOCEPHALIC - Eye Exam Eye Exam: Scleral icterus - ENT Exam ENT Exam: Mucous Membranes Moist - Respiratory Exam Respiratory Exam: Decreased Breath Sounds Additional comments: tachypnea - Cardiovascular Exam Cardiovascular Exam: Tachycardia, +S1, +S2 - GI/Abdominal Exam GI & Abdominal Exam: Distended, Firm, Diminished Bowel Sounds - Exam Speculum exam: Cervical Discharge - Back Exam Back Exam: NORMAL INSPECTION - Neurological Exam Neurological Exam: Altered - Skin Skin Exam: Dry Additional comments: jaundice, ansarca, skin breakdown under left breast Assessment and Plan - Assessment and Plan (Free Text) Assessment: 47 year old female with history of metastatic colon cancer,sepsis who is admitted with transaminitis, leukocytosis, intractable abdominal pain, altered mental status,s, dysphagia, severe deconditioning, anasarca. The patient is moaning,grimacing this is exacerbated whenever she is repositioned. She is tachypneic, tachycardic Family meeting scheduled for tomorrow in order to continue goals of care and hospice discussions. Plan: Pain management: Increase Morphine to 2mg/IVP every three hours as needed. Anasarca: Would discontinue IV fluids. Palliative support in estabslihing goals of care End of life counseling
[2017-12-29 10:11] VITALS: PULSE 104
[2017-12-29] MEDS: Famotidine 20mg/50ml 20 MG/50 ML BAG IVPB SCH (10:24)
[2017-12-29] MEDS: Nystatin 100,000 Units/gm Topical Pow(15 gm) TOP SCH ×2 (10:24→18:47)
[2017-12-29] MEDS: Silver Sulfadiazine 1% Cream (25 gm) TP SCH ×2 (10:24→18:46)
[2017-12-29] MEDS ORDERED: Morphine 2 mg/ml ISec IVP PRN ×2 (10:45→20:21)
--- NOTE | 2017-12-29 16:48 | CP.PCM.PN ---
Subjective - Date & Time of Evaluation Date of Evaluation: 12/29/17 Time of Evaluation: 14:30 - Subjective Subjective: Infectious Disease Follow Up: December 29, 2017 47 year old female with past medical history of colon cancer with metastasis to the liver, diverticulitis, obesity, and chronic gastritis presents to the hospital for 3 day history of worsening abdominal pain. Patient was very lethargic during exam and unable to answer all questions. Much of history provided is from prior medical records. Patient has abdominal pain at baseline, but it is now much worse in the RLQ. Patient very lethargic on exam. Responds to painful stimuli. ROS unobtainable due to altered mental status. Many family member at bedside. Family appears to be coming to term with the severity of the patient's illnesses. The children have agreed to DNR and DNI. Enterococcus grew in urine cultures sensitive to Ampicillin. Patient is currently on Unasyn. Remains fatigued but patient is overall more responsive and can hold short conversations. Lack of bowel movements the last few days. Patient failed swallow study and required placement of Dobhoff tube for feeding on 12/24/2017. No additional issues. Completed Unasyn. Deteriorating slowly. Tachycardia and tachypnea now. Objective - Vital Signs/Intake and Output Vital Signs (last 24 hours): Temp Pulse Resp BP Pulse Ox 97.8 F 104 H 18 104/71 98 12/29/17 10:10 12/29/17 10:10 12/29/17 10:10 12/29/17 10:10 12/29/17 10:10 Intake and Output: 12/29/17 12/29/17 06:59 18:59 Intake Total 1160 0 Output Total 100 225 Balance 1060 -225 - Medications Medications: Current Medications Morphine Sulfate (Morphine) 2 mg IVP Q3H PRN PRN Reason: Pain, moderate (4-7) Last Admin: 12/29/17 14:50 Dose: 2 mg Nystatin (Nystop Topical Powder) 0 gm TOP BID [facility] Last Admin: 12/29/17 10:24 Dose: 1 applic Ondansetron HCl (Zofran Inj) 4 mg IVP Q6H PRN PRN Reason: Nausea/Vomiting Silver Sulfadiazine (Silvadene 1% 25 Gm) 0 gm TP BID [facility] Last Admin: 12/29/17 10:24 Dose: 25 gm - Labs Labs: 12/26/17 16:22 12/27/17 06:00 - Constitutional Appears: In Acute Distress, Chronically Ill - Head Exam Head Exam: NORMOCEPHALIC - Eye Exam Eye Exam: EOMI, PERRL Pupil Exam: NORMAL ACCOMODATION, PERRL - ENT Exam ENT Exam: Mucous Membranes Moist, Normal External Ear Exam, TM's Normal Bilaterally - Neck Exam Neck Exam: Full ROM, Normal Inspection - Respiratory Exam Respiratory Exam: Decreased Breath Sounds. absent: Rales, Rhonchi, Wheezes Additional comments: tachypnea - Cardiovascular Exam Cardiovascular Exam: REGULAR RHYTHM, RRR, +S1, +S2 - GI/Abdominal Exam GI & Abdominal Exam: Soft, Normal Bowel Sounds. absent: Distended, Tenderness - Extremities Exam Additional comments: +2 edema of all four extremities. - Neurological Exam Neurological Exam: Alert, Awake Additional comments: fatigued. AAO x 1 - Psychiatric Exam Additional comments: fatigued. arousable at times. - Skin Additional comments: edematous. Assessment and Plan - Assessment and Plan (Free Text) Assessment: 47 yo AA female with colon cancer with metastatic disease to the liver. On Vancomycin and Zosyn for antibiotic coverage. 3 days of worsening abdominal pain. She is currently a full code status. The patient has a terminal cancer. Mild leukocytosis. The patient has an altered mental status. Procalcitonin level is 11.45. Procalcitonin elevation may be secondary to her metastatic colon cancer. So in this case, an elevated procalcitonin may not mean an infectious process. Procalcitonin cannot be used to prove or disprove presence of an infection especially in this case. Regardless, the patient's overall prognosis is very poor at this time. Currently she is responsive to name. Heavily fatigued. Enterococcus in urine cultures. Continue antibiotics of Unasyn IV. Looking for 10 days of treatment. Completed Unasyn. Supportive care. Dismal long and short term prognosis. Patient's children have agreed to DNI/DNR. The patient mentation has improved. Liver function continues to downtrend. Part of the elevated liver function is likely secondary to the liver metastatic disease. Mild Leukocytosis of 16.1 still present on last check. LFTs have been improving on the whole but remain elevated. Patient failed swallow study and required Dobhoff tube placement 12/24/2017. Repeat procalcitonin showing 2.65. Patient is diffusely edematous. lethargic but arousable. No new issues. Family considering hospice now... spoke with hospice time. Thank you for allowing me to participate in the care of the patient, we will follow with you.
--- NOTE | 2017-12-29 20:27 | PN ---
DATE: 12/29/2017 SUBJECTIVE: This 47-year-old female remains bedridden and hospitalized with metabolic encephalopathy and marked deconditioning in the setting of metastatic colon cancer to liver, stage IV. This case was reviewed in detail with her nurse, María Patel, registered nurse, and Jacquie Ma, registered nurse from palliative care. The family will be meeting with administration tomorrow regarding the institution of hospice care and patient remains bedridden and markedly lethargic at present. PHYSICAL EXAMINATION: VITAL SIGNS: Temperature was 97.8, respirations 18, pulse 104, and blood pressure 104/71 with a pulse ox of 98%. Urine output was 225 mL. HEENT: Head: Normocephalic, atraumatic. Eyes: Positive icterus. Ears: Clear. Throat: Noninjected. NECK: Supple. HEART: S1, S2. LUNGS: Clear. ABDOMEN: Obese. EXTREMITIES: Anasarca. VASCULAR: Legs warm to touch. PSYCHOLOGICAL: Lethargic. NEUROLOGICAL: Deconditioned and bedridden. LABORATORY DATA: White count 16,100, hemoglobin 10.6, hematocrit 33.6, platelets 265,000. Random blood sugar 94. Previous electrolytes, sodium 140, K is 3.8, chloride 110, bicarb 16, BUN 34, creatinine 2.3. Estimated GFR 27 mL/per minute. T4 normal, 5.6. Calcium 9.1. IMPRESSION: This is a 47-year-old female with metastatic colon cancer to liver with ongoing metabolic acidosis, probable lactic acidosis due to liver mets, renal insufficiency, anemia, status post treatment for Enterococcus faecalis urinary tract infection with metabolic encephalopathy, marked deconditioning, and bedridden status. The patient has been evaluated by Dr. Clif Curiel from Infectious Disease, Dr. Fawad Anthony from Hematology/Oncology, and Dr. Jessica Jimenez from GI. The patient is a do not resuscitate/do not intubate. She will be treated supportively and compassionately. Family will be proceeding with hospice within the next 24 to 48 hours and nursing is continuing morphine p.r.n. severe pain, Silvadene to skin tears, Zofran p.r.n. nausea and vomiting, and the patient remains on fall and aspiration precautions and with tube feedings of Jevity 1.2 at 30 mL/hour at present. Greater than 35 minutes was spent in the care management, review of orders, and discussion of this patient's care with cnc specialist, Jacquie Ma, and nursing today. All questions were answered. Karol Banks MD MTDM[facility]
[2017-12-30 00:43] VITALS: RESP 22; O2SAT 97
--- NOTE | 2017-12-30 00:45 | PN ---
DATE: 12/29/2017 SUBJECTIVE: This patient was seen and evaluated earlier today. Patient is using NG tube. She is lethargic. PHYSICAL EXAMINATION: VITAL SIGNS: Afebrile, temperature 97.8; blood pressure is 104/74; pulse 104; respirations 18. O2 saturation is 98%. HEENT: Jaundiced. NECK: Supple. HEART: S1 and S2 heard. LUNGS: Bilateral air entry present, reduced at the base. ABDOMEN: Distended. Ascites present. EXTREMITIES: Edema present. IMPRESSION: This is a 47-year-old patient with metastatic colon carcinoma, sepsis, urinary tract infection. RECOMMENDATIONS: Continue the supportive care. Overall prognosis of the patient remains poor. Patient's family is considering about compassionate care, hospice care. Jessica Jimenez MD
[2017-12-30] MEDS: Morphine 2 mg/ml ISec IVP PRN ×4 (03:58→13:57)
[2017-12-30 07:57] VITALS: BP 115/74; TEMP 98.2
--- NOTE | 2017-12-30 10:14 | CP.PCM.PN ---
<Harry Sim - Last Filed: 12/30/17 10:49> Subjective - Date & Time of Evaluation Date of Evaluation: 12/30/17 Time of Evaluation: 09:00 - Subjective Subjective: GI Progress Note Dr. Jimenez Pt was seen and examined at bedside. Pt remains lethargic. As per nursing staff , pt moaning at times. Dobhoff in place. ROS unavailable Objective - Vital Signs/Intake and Output Vital Signs (last 24 hours): Temp Pulse Resp BP Pulse Ox 98.2 F 104 H 22 115/74 97 12/30/17 06:00 12/30/17 06:00 12/30/17 06:00 12/30/17 06:00 12/30/17 06:00 Intake and Output: 12/30/17 12/30/17 06:59 18:59 Intake Total 0 Output Total 150 Balance -150 - Medications Medications: Current Medications Morphine Sulfate (Morphine) 2 mg IVP Q3H PRN PRN Reason: Pain, moderate (4-7) Last Admin: 12/30/17 07:22 Dose: 2 mg Nystatin (Nystop Topical Powder) 0 gm TOP BID [facility] Last Admin: 12/29/17 18:47 Dose: 1 applic Ondansetron HCl (Zofran Inj) 4 mg IVP Q6H PRN PRN Reason: Nausea/Vomiting Silver Sulfadiazine (Silvadene 1% 25 Gm) 0 gm TP BID [facility] Last Admin: 12/29/17 18:46 Dose: 25 gm - Labs Labs: 12/26/17 16:22 12/27/17 06:00 - Constitutional Appears: No Acute Distress - Head Exam Head Exam: ATRAUMATIC, NORMAL INSPECTION, NORMOCEPHALIC - Eye Exam Eye Exam: EOMI, Normal appearance, PERRL Pupil Exam: NORMAL ACCOMODATION, PERRL - ENT Exam ENT Exam: Mucous Membranes Dry - Respiratory Exam Respiratory Exam: Decreased Breath Sounds, Clear to Ausculation Bilateral - Cardiovascular Exam Cardiovascular Exam: REGULAR RHYTHM, +S1, +S2. absent: Murmur - GI/Abdominal Exam GI & Abdominal Exam: Soft, Normal Bowel Sounds. absent: Tenderness - Extremities Exam Extremities Exam: Pedal Edema - Neurological Exam Neurological Exam: Awake - Psychiatric Exam Psychiatric exam: Flat Affect - Skin Skin Exam: Dry, Intact, Normal Color, Warm Assessment and Plan - Assessment and Plan (Free Text) Assessment: Colon cancer with extensive metastasis to liver Abdominal Pain Altered Mental Status 2/2 encephalopathy , ammonia , or narcotic induced Sepsis/leukocytosis Elevated LFT, metestatic liver disease UTI H/O diverticulosis/diverticulitits, s/p colectomy PLAN: NPO, have Dobhoff, Jevity at 30 cc/hr w/free water flushes, tolerating DC IVF as per Palliative care on IV Pepcid on Morphine on IV antibiotics, unasyn monitor LFTs Poor Prognosis, DNR/DNI Family considering hospice, meeting at 2pm FU reccs from palliative care Seen and discussed w/ Dr. Jimenez. <Jessica Jimenez V - Last Filed: 12/31/17 00:00> Objective - Vital Signs/Intake and Output Vital Signs (last 24 hours): Temp Pulse Resp BP Pulse Ox 98.2 F 104 H 22 115/74 97 12/30/17 06:00 12/30/17 06:00 12/30/17 06:00 12/30/17 06:00 12/30/17 06:00 - Labs Labs: 12/26/17 16:22 12/27/17 06:00 Attending/Attestation - Attestation I have personally seen and examined this patient.: Yes I have fully participated in the care of the patient.: Yes I have reviewed all pertinent clinical information, including history, physical exam and plan: Yes Notes (Text): This is an addendum to GI progress report dictated by Renuka Nevarez APN.The patient was seen and examined earlier. Medical records, lab studies, imagings were reviewed. Last 24 hours events reviewed. Agreed with the above treatment plan as outlined in Renuka Nevarez APN's notes the with the addition of the following 12/31/17 00:00
[2017-12-30] MEDS: Nystatin 100,000 Units/gm Topical Pow(15 gm) TOP SCH (10:19)
[2017-12-30] MEDS: Silver Sulfadiazine 1% Cream (25 gm) TP SCH (10:19)
--- NOTE | 2017-12-30 15:33 | CP.PCM.PN ---
Subjective - Date & Time of Evaluation Date of Evaluation: 12/30/17 Time of Evaluation: 15:00 - Subjective Subjective: Moaning. Irregular breathing. Upper airway congestion Objective - Vital Signs/Intake and Output Vital Signs (last 24 hours): Temp Pulse Resp BP Pulse Ox 98.2 F 104 H 22 115/74 97 12/30/17 06:00 12/30/17 06:00 12/30/17 06:00 12/30/17 06:00 12/30/17 06:00 Intake and Output: 12/30/17 12/30/17 06:59 18:59 Intake Total 0 Output Total 150 Balance -150 - Labs Labs: 12/26/17 16:22 12/27/17 06:00 - Constitutional Appears: Chronically Ill - Eye Exam Eye Exam: Scleral icterus - ENT Exam ENT Exam: Mucous Membranes Moist - Respiratory Exam Respiratory Exam: Decreased Breath Sounds Additional comments: irregular, shallow breathing pattern, upper airway congestion - Cardiovascular Exam Cardiovascular Exam: Tachycardia, +S1 - GI/Abdominal Exam GI & Abdominal Exam: Distended, Firm, Tenderness, Diminished Bowel Sounds - Exam Additional comments: oliguric - Extremities Exam Additional comments: edematous - Neurological Exam Additional comments: obtunded - Skin Skin Exam: Pallor Additional comments: jaundice, anasarca Assessment and Plan - Assessment and Plan (Free Text) Assessment: 47 year old female with hsitory of metastatic colon cancer who is admitted with jaundice, abdominal pain, SILVIANO and elevated LFT's. The patient is obtunded. Moaning. Irregular /agonal breathing Family at bedside.Hospice services explained in detail. Family's questions and concerns addressed> Family is agreeable to hospice services. End of life counseling and psychosocially support provided The patient was evaluated and accepted to [facility] services under [facility]. Consent for service signed by family. Time spent with family in end of life chiseling, 45 minutes Plan: Discharge and admit to [facility] Pain:Morphine 1 mg/hr continuos IV infusion. Upper airway secretions:Scopolamine transdermal patch. Benadryl 50 mg IVP every 12 hours. Fever over 100F: Tylenol RC 650mg every 4 hours as needed Agitation: Ativan 1 mg every 6 hours as needed. Keep NPO End of life counseling
--- NOTE | 2017-12-31 03:05 | DS ---
DATE OF EVALUATION; 12/30/2017. HISTORY OF PRESENT ILLNESS: This 47-year-old female is being readied for hospice by family who are waiting to meet with Jacquie Ma, registered nurse from palliative care. On evaluation today, the patient had agonal breathing, remains verbally unresponsive and is being medicated with morphine. I have had lengthy discussions with patient's family, children, siblings, and all are in agreement with the pursuing of hospice. PHYSICAL EXAMINATION: VITAL SIGNS: At the time of evaluation, patient had a temperature of 98.2, respirations 22, pulse 104, and blood pressure 115/74 with pulse ox 97% on room air. PLAN: The plan is to stop all laboratory testing, diagnostic testings. Patient remains DNR/DNI. She will be taken off NG tube feedings and will be given comfort measures only. All of this was reviewed in detail with nursing, family, and palliative care. All questions were answered. Overall prognosis is guarded. Patient will be monitored while on hospice in the hospital. Karol Banks MD [facility]IL[facility]
== END 2017-12-30 14:56 | disposition hospice, inpatient (51) | DRG 871 ==
LOC: ED 00:53 → ERH 04:57 → 3RNO 13:38 → CCU 12-16 10:29 → 3RNO 12-19 01:38
PROVIDERS: ADMIT Internal Medicine; ATTEND Internal Medicine
PROC: 0DH67UZ Insertion of Feeding Device into Stomach, Via Natural or Artificial Opening (ICD-10-PCS; principal; 2017-12-24)
PROC: 3E0G76Z Introduction of Nutritional Substance into Upper GI, Via Natural or Artificial Opening (ICD-10-PCS; 2017-12-24)
DX: A41.9 Sepsis, unspecified organism (principal); G93.41 Metabolic encephalopathy; N17.9 Acute kidney failure, unspecified; C78.7 Secondary malignant neoplasm of liver and intrahepatic bile duct; E87.0 Hyperosmolality and hypernatremia; C77.9 Secondary and unspecified malignant neoplasm of lymph node, unspecified; E87.2 Acidosis; R13.10 Dysphagia, unspecified; N39.0 Urinary tract infection, site not specified; K29.50 Unspecified chronic gastritis without bleeding; Z66 Do not resuscitate; D63.8 Anemia in other chronic diseases classified elsewhere; R62.7 Adult failure to thrive; E87.6 Hypokalemia; B95.2 Enterococcus as the cause of diseases classified elsewhere; K59.09 Other constipation; K21.9 Gastro-esophageal reflux disease without esophagitis; Z51.5 Encounter for palliative care; E66.9 Obesity, unspecified; Z68.32 Body mass index [BMI] 32.0-32.9, adult; Z85.038 Personal history of other malignant neoplasm of large intestine; Z91.19 Patient's noncompliance with other medical treatment and regimen; Z92.21 Personal history of antineoplastic chemotherapy; Z90.49 Acquired absence of other specified parts of digestive tract; Z87.11 Personal history of peptic ulcer disease

== ENCOUNTER 2017-12-30 15:03 | Inpatient (IN) | payer OTHER ==
[2017-12-30] MEDS ORDERED: Morphine PCA 1 mg/ml (30ml) 30 ML IV PRN (15:05)
--- NOTE | 2017-12-30 15:47 | CP.PCM.PN ---
Subjective - Date & Time of Evaluation Date of Evaluation: 12/30/17 Time of Evaluation: 15:00 - Subjective Subjective: Admit to [facility] Pain:Morphine 1 mg/hr continuos IV infusion. Upper airway secretions:Scopolamine transdermal patch. Benadryl 50 mg IVP every 12 hours. Fever over 100F: Tylenol RC 650mg every 4 hours as needed Agitation: Ativan 1 mg every 6 hours as needed. Keep NPO End of life counseling Objective - Medications Medications: Current Medications Acetaminophen (Tylenol 650 Mg Supp) 650 mg RC Q4H PRN PRN Reason: Fever >100.4 F Diphenhydramine HCl (Benadryl) 50 mg IVP Q12H [facility] Morphine Sulfate (Morphine [employer] 1 Mg/Ml) 30 mls @ 1 mls/hr IV PRN PRN; Protocol ; 1 MG/HR PRN Reason: [employer]OUTE [employer] MACH[employer]ES PER MD ORDER Lorazepam (Ativan) 1 mg IVP Q6H PRN; Protocol PRN Reason: Agitation Scopolamine (Transderm-Scop) 1 patch TD Q3D [facility]
[2017-12-30 16:05] VITALS: RESP 24
[2017-12-30] MEDS ORDERED: DiphenhydrAMINE 50 mg/ml Inj IVP SCH (18:15)
--- NOTE | 2017-12-30 18:33 | CP.PCM.PRO ---
<Hattie Hua - Last Filed: 12/31/17 06:43> Pronouncement of Note - Clinical Findings Physical Exam: No Response Verbal/Painful Stimuli, Absent Peripheral Pulses{ Carotid & Femoral}, Absent Heart & Breath Sounds, No Pupillary Light Reflex, Pupils Fixed & Dilated, Absence of Vital Signs - Pronouncement Time Time of Pronouncement of : 18:21 - Notifications Pronouncement Notifications: Family Notified, Atending Notified Track Rider Notified: No - [place] [id number] <CopelandCase balbuenaliz - Last Filed: 12/31/17 06:53> Attending/Attestation - Attestation I have personally seen and examined this patient.: No I have fully participated in the care of the patient.: Yes I have reviewed all pertinent clinical information: Yes Notes (Text): 12/31/17 06:53 I was asked by emergency medical service manager to sign for certificate as she was unable to sign on.
== END 2017-12-30 18:41 | DRG 871 ==
LOC: 3RNO 15:03
PROVIDERS: ADMIT Internal Medicine; ATTEND Internal Medicine
DX: A41.9 Sepsis, unspecified organism (principal); G93.41 Metabolic encephalopathy; C78.7 Secondary malignant neoplasm of liver and intrahepatic bile duct; C77.9 Secondary and unspecified malignant neoplasm of lymph node, unspecified; R62.7 Adult failure to thrive; N39.0 Urinary tract infection, site not specified; Z51.5 Encounter for palliative care; Z66 Do not resuscitate; Z85.038 Personal history of other malignant neoplasm of large intestine